=== PATIENT | male | born 1945 | race American Indian/Alaskan Native ===

== ENCOUNTER 2016-11-11 14:58 | Inpatient (IN) | payer MEDICARE ==
[2016-11-11] MEDS ORDERED: methylPREDNISolone SOD SUCC* 125 MG 2 ML VIAL IV ONE (15:31)
[2016-11-11 15:49] LABS: Hematocrit 53 % (42-52); Hemoglobin 17.7 g/dl (14.0-18.0); Mean Corpuscular HGB Conc 34 g/dl (31-36); Mean Corpuscular Hemoglobin 34 pg (27-31); Mean Corpuscular Volume 99 fL (80-94); Mean Platelet Volume 9 um3 (7.4-10.4); Red Cell Distribution Width 14 % (10.5-15); White Blood Count 12.4 10^3/ul (3.5-10.8)
[2016-11-11] MEDS: Albuterol/Ipratropium NEB.SOL* Albuterol 2.5 MG/Ipratropium 0.5 MG 3 ML INH SCH ×3 (15:53→17:15)
[2016-11-11 16:01] LABS: Albumin 4.8 g/dL (3.2-5.2); BUN/Creatinine Ratio 13.3 (8-20); C Reactive Protein 60.25 mg/L (< 5.00); Calcium 9.9 mg/dL (8.6-10.3); EGFR African American 77.2 (>60); Globulin 3.2 g/dL (2-4); Potassium 3.7 mmol/L (3.5-5.0)
[2016-11-11 16:03] LABS: Troponin I 0.01 ng/mL (<0.04)
--- NOTE | 2016-11-11 16:50 | RAD ---
Indication: Shortness of breath, chest pain. 2 views of the chest including dual energy PA views demonstrates hyperinflated lung mo. No evidence of alveolar consolidation noted. No mediastinal shift is noted. IMPRESSION: Chronic pleural changes. No pneumonia is noted.
[2016-11-11 17:04] LABS: Urine Bilirubin Negative (Negative); Urine Glucose Negative (Negative); Urine Nitrite Negative (Negative)
[2016-11-11 17:56] LABS: PCO2 Arterial 47 mmHg (35-45)
--- NOTE | 2016-11-11 18:38 | ED ---
Guerrero Alberto Michael, scribed for Jr Morrison MD on 11/11/16 at 1538 . Shortness of Breath - HPI Summary HPI Summary: 71 y/o male comes to the ED presenting with SOB that worsened one day ago. The pt is not on home oxygen, and he also presents with a productive cough with white and green sputum. The pt c/o CP and dizziness. He denies fever and chills. The PMHx is significant for COPD, HTN, kidney stones, and hypercholesterolemia. The pt smokes half a pack of cigarettes per day. The FHx is significant for HTN. - History of Current Complaint Chief Complaint: EDShortnessOfBreath Time Seen by Provider: 11/11/16 15:15 Hx Obtained From: Patient, Medical Records Onset/Duration: Sudden Onset, Lasting Days, Still Present Timing: Constant Current Severity: Moderate Dyspnea At: Rest Alleviating Factors: Nothing Associated Signs & Symptoms: Negative - fever and chills, Cough (Productive), Chest Pain Unrelated to Cough, Dizzy - Allergy/Home Medications Allergies/Adverse Reactions: Allergies Allergy/AdvReac Type Severity Reaction Status Date / Time Acetaminophen [From Percocet] Allergy Difficulty Verified 11/11/16 15:02 Breathing Oxycodone [From Percocet] Allergy Difficulty Verified 11/11/16 15:02 Breathing Home Medications: Home Medications Albuterol HFA INHALER* [Ventolin HFA Inhaler*] 1 puff INH Q4H PRN 11/11/16 [ History Confirmed 11/11/16] Salmeterol DISKUS (NF) [Serevent Diskus (NF)] 50 mcg IN DAILY 11/11/16 [History Confirmed 11/11/16] Umeclidinium [place] [Incruse Ellipta] 62.5 mcg IN DAILY WITH MEAL 11/11/16 [ History Confirmed 11/11/16] PMH/Surg Hx/FS Hx/Imm Hx Endocrine/Hematology History: Denies: Hx Diabetes Cardiovascular History: Reports: Hx Angina, Hx Hypercholesterolemia, Hx Hypertension, Hx Syncope, Other Cardiovascular Problems/Disorders - ANGINA Respiratory History: Reports: Hx Asthma, Hx Chronic Obstructive Pulmonary Disease (COPD), Hx Sleep Apnea - BiPAP user. History: Reports: Hx Kidney Stones Sensory History: Reports: Hx Contacts or Glasses Opthamlomology History: Reports: Hx Contacts or Glasses - Surgical History Surgery Procedure, Year, and Place: fistula buttocks, appendectomy Infectious Disease History: No Infectious Disease History: Denies: Traveled Outside the [place] in Last 30 Days - Family History Known Family History: Positive: Hypertension Negative: Diabetes - Social History Occupation: Retired Lives: With Family Alcohol Use: Daily Alcohol Amount: 2-3 Substance Use Type: Reports: None Hx Tobacco Use: Yes Smoking Status (MU): Light Every Day Tobacco Smoker Type: Cigarettes Amount Used/How Often: 10 /DAY Have You Smoked in the Last Year: Yes Review of Systems Negative: Fever, Chills Positive: Shortness Of Breath, Cough Neurological: Other - dizziness All Other Systems Reviewed And Are Negative: Yes Physical Exam - Summary Physical Exam Summary: VITAL SIGNS: Reviewed. GENERAL: Patient is an obese male with some distress secondary to the shortness of breath. However, he is able to speak in full sentences. HEAD AND FACE: Normocephalic and atraumatic. EYES: PERRLA, EOMI x 2, No injected conjunctiva. EARS: Hearing grossly intact. Ear canals and tympanic membranes WNL MOUTH: Dry oral mucosa. NECK: Supple, trachea is midline, no adenopathy, no JVD, no carotid bruit. CHEST: Symmetric, No intercostal or abdominal retraction, LUNGS: Diffuse bilateral wheezing and decreased breath sounds.No crackles. CVS: RRR,, S1 and S2 present, no murmurs or gallops appreciated. ABDOMEN: Soft, non-tender. No signs of distention. Positive BS. No rebound, no guarding, and no masses palpated. EXTREMITIES: FROM in all major joints, no edema, no cyanosis or clubbing. NEURO: Alert and oriented x 3. No acute neurological deficits. Speech is normal and follows commands. SKIN: Dry and warm Triage Information Reviewed: Yes Vital Signs On Initial Exam: Initial Vitals Temp Pulse Resp BP Pulse Ox 99.6 F 107 24 170/87 92 11/11/16 15:02 11/11/16 15:02 11/11/16 15:02 11/11/16 15:02 11/11/16 15:02 Vital Signs Reviewed: Yes Diagnostics - Vital Signs Vital Signs Temp Pulse Resp BP Pulse Ox 11/11/16 15:02 99.6 F 107 24 170/87 92 - Laboratory Result Diagrams: 11/11/16 15:14 11/11/16 15:14 Lab Statement: Any lab studies that have been ordered have been reviewed, and results considered in the medical decision making process. - Radiology CXR Xray Interpretation: Positive (See Comments) - Chronic pleural changes. No pneumonia is noted. Radiology Interpretation Completed By: Radiologist - EKG EK EKG Rhythm: Sinus Tachycardia - 102 bpm EKG Interpretation: no st elevation Course/Dx - Course Course Of Treatment: 71 y/o male comes to the ED presenting with SOB that worsened one day ago. The pt is not on home oxygen, and he also presents with a productive cough with white and green sputum. The pt c/o CP and dizziness. He denies fever and chills. The PMHx is significant for COPD, HTN, kidney stones, and hypercholesterolemia. The pt smokes half a pack of cigarettes per day. The FHx is significant for HTN. The blood work within normal limits except shows the WBC 12.4, no edema, chloride 92, creatinine 1.2, glucose 134, and C-reative protein 60.25. The Urine Analysis is negative for UTI. Influenza A and B are negative. The CXR shows chronic pleural changes and no PNA is noted. The patient received Solumedrol and DuoNebs. After treatment patient feels better and without oxygen his saturation is between 85-87, and with 2 L of oxygen the saturation was 90-92. He doesnt have any oxygen at home. ABG was attempted but venous not atrial. I discussed patient care with Dr. Squires at [phone] (Hospitalist ) and Leticia Squires accepts the patient as an admission. - Diagnoses Differential Diagnosis/HQI/PQRI: Positive: Asthma, CHF, COPD Exacerbation, Pneumonia, Pulmonary Edema Provider Diagnoses: COPD with exacerbation, Hypoxia Discharge - Discharge Plan Condition: Stable Disposition: ADMITTED TO [facility]charge Disposition Comment: [place] [facility] [place]. Squires Referrals: Lluvia Stevens, [employer] [Primary Care Provider] - The documentation as recorded by the Guerrero nuñez Michael accurately reflects the service I personally performed and the decisions made by me, Jr Morrison MD.
[2016-11-11] MEDS ORDERED: Albuterol/Ipratropium NEB.SOL* Albuterol 2.5 MG/Ipratropium 0.5 MG 3 ML INH PRN (19:09)
[2016-11-11] MEDS ORDERED: Acetaminophen TAB* 325 MG PO PRN (19:57)
[2016-11-11] MEDS: Heparin VIAL(*) 5000 UNITS/ML VIAL (FIVE THOUSAND) SUBCUT SCH (21:11)
[2016-11-11] MEDS: Atorvastatin* 10 MG TAB PO SCH (21:12)
[2016-11-11] MEDS: DOXYcycline CAP(*) 100 MG PO SCH (21:12)
--- NOTE | 2016-11-11 22:46 | HP ---
HOSPITAL MEDICINE HISTORY AND PHYSICAL: DATE OF ADMISSION: 11/11/16 PRIMARY CARE PROVIDER: Lluvia Stevens NP ATTENDING PHYSICIAN: Dr. Fanny Landrum *(dictation provided by Jacqueline Mendoza NP) . CHIEF COMPLAINT: Shortness of breath. HISTORY OF PRESENT ILLNESS: Mr. Taylor is a 71-year-old male with a past medical history of COPD, hypertension, hyperlipidemia, and obstructive sleep apnea, on CPAP machine, who presents to the hospital today with concern for shortness of breath. Mr. Taylor states that he was essentially in his normal state of health until yesterday when in the evening he developed shortness of breath. He woke in the middle of the night quite short of breath and took an albuterol treatment, but was able to sleep through the night. Throughout the day today, he has been more short of breath and coughing and unable to ambulate except for very short distances without becoming quite dyspneic. Therefore, he presented to the emergency room. He denies any fevers or chills. He does have some intermittent cramps in the left side of his abdomen and up into his chest. He states that these have been unchanged for years. They have not been increasing in frequency or severity. In the emergency room, Mr. Taylor had chest x-ray which showed no acute process. His EKG showed no evidence of ischemia. His labs were essentially unremarkable except for a mild elevation in CRP to 60.25. His flu swab was negative. He is on 2 L nasal cannula originally satting 88% on room air. PAST MEDICAL HISTORY: 1. COPD. 2. Diabetes, stated as borderline. 3. Hypertension. 4. Hyperlipidemia. 5. Obesity. 6. History of appendectomy. 7. History of vasectomy. 8. BPH. 9. Sleep apnea, on BiPAP. 10. History of perianal fistula. 11. History of kidney stones. MEDICATIONS: 1. Tamsulosin daily. 2. Albuterol 1 puff inhaled q.4 hours p.r.n. 3. Fluticasone 220 mcg 1 puff inhaled b.i.d. 4. Salmeterol Diskus 50 mcg inhaled daily. 5. Incruse Ellipta 62.5 mcg daily. 6. Hydrochlorothiazide 25 mg p.o. daily. 7. Simvastatin 10 mg p.o. bedtime. 8. Potassium chloride daily. 9. A second pill for BPH which he is not sure the name of. ALLERGIES: To TYLENOL, OXYCODONE. FAMILY HISTORY: The patient reports his father had colon cancer. Mother in a motor vehicle crash. SOCIAL HISTORY: The patient is a continued [id number]-[id number]-a-day smoker. He drinks 2 Manhattan's per night, but he states he gomez them down. He denies any alcohol or drug use. He states that his brother, Paulo Taylor, would be his healthcare proxy. REVIEW OF SYSTEMS: A 14-point review of systems was completed with Mr. Taylor and all those not mentioned above were negative. PHYSICAL EXAMINATION GENERAL: Mr. Taylor is sitting up in a chair. He is in no acute distress. He is calm and cooperative to my examination. VITAL SIGNS: Temperature 99.6, heart rate 104, respiratory rate 18, O2 saturation 91% on 2 L nasal cannula, blood pressure 146/91. LUNGS: Diminished bilaterally, although there are some very mild expiratory wheezing. There is no accessory muscle use. HEART: S1, S2. No murmur, rub, or gallop, and regular. ABDOMEN: Soft, nontender with bowel sounds positive x4. EXTREMITIES: No cyanosis or edema. NEURO: He is alert and oriented x3. He moves all extremities equally. There is no facial asymmetry or focal weakness. Extraocular movements are intact. SKIN: Intact. DIAGNOSTIC STUDIES/LAB DATA: WBC 12.4, hemoglobin 17.7, hematocrit 53, platelet count 139. Blood gas shows a pH of 7.46, PCO2 47, PO2 34. Sodium 135 , potassium 3.7, chloride 92, serum bicarbonate 36, BUN 16, creatinine 1.20, glucose 134, CRP 60.25. Troponin 0.01. Urine shows no evidence of infection. Flu swab is negative. Chest x-ray shows no acute process. EKG shows sinus rhythm with a heart rate of approximately 100 and no evidence of ischemia. ASSESSMENT AND PLAN: Mr. Taylor is a 71-year-old male with past medical history of chronic obstructive pulmonary disease and obstructive sleep apnea, who presents today to the hospital with 24 hours of worsening shortness of breath and dyspnea on exertion. Plan is for observation in the hospital for the followin. Shortness of breath: I suspect that Mr. Taylor is having chronic obstructive pulmonary disease exacerbation given his underlying history of chronic obstructive pulmonary disease and continued smoking. He has no fevers, no chills, no infiltrate noted on the chest x-ray. He has no risk factors for pulmonary embolism that are new. Plan to treat with prednisone, Duo nebulizers , doxycycline, and oxygen p.r.n. 2. Hypertension: Continue hydrochlorothiazide. 3. Benign prostatic hyperplasia: Continue home medications. 4. Hyperlipidemia: Continue simvastatin. 5. DVT prophylaxis with heparin subcu. 6. Disposition to the medical floor. TIME SPENT: Approximately 60 minutes was spent on the admission of this patient , more than half time spent with him at the bedside reviewing the events leading up to this hospitalization, performing the physical examination, and reviewing my plan of care. JACQUELINE MENDOZA NP CC: Lluvia Stevens NP* [id number]/[facility] #: [id number]
[2016-11-12] MEDS: Heparin VIAL(*) 5000 UNITS/ML VIAL (FIVE THOUSAND) SUBCUT SCH ×3 (06:55→21:28)
[2016-11-12] MEDS: predniSONE TAB* 20 MG PO SCH (10:05)
[2016-11-12] MEDS: Hydrochlorothiazide TAB* 25 MG PO SCH (10:05)
[2016-11-12] MEDS: DOXYcycline CAP(*) 100 MG PO SCH ×2 (10:05→21:30)
[2016-11-12] MEDS: Albuterol/Ipratropium NEB.SOL* Albuterol 2.5 MG/Ipratropium 0.5 MG 3 ML INH SCH ×3 (15:43→23:07)
--- NOTE | 2016-11-12 17:36 | PN ---
Subjective Date of Service: 11/12/16 Interval History: Patient seen and examined at bedside. Mr. Taylor reports feeling "much better" than yesterday. He still reports dyspnea with exertion. He does not wear home O2 at baseline. He states he thinks he is done with smoking after this. Denies fever/chills, CP, abd pain,, n/v. Family History: Unchanged from Admission Social History: Unchanged from Admission Past Medical History: Unchanged from Admission Objective Active Medications: Acetaminophen (Tylenol Tab*) 650 mg PO Q6H PRN PRN Reason: PAIN Albuterol/Ipratropium (Duoneb (Albuterol 2.5 Mg/Ipratropium 0.5 Mg)) 1 neb INH [id number] AWAKE [facility] Last Admin: 11/12/16 15:43 Dose: 1 neb Atorvastatin Calcium (Lipitor*) 5 mg PO BEDTIME [facility] Last Admin: 11/11/16 21:12 Dose: 5 mg Doxycycline Hyclate (Vibramycin Cap(*)) 100 mg PO BID [facility] Last Admin: 11/12/16 10:05 Dose: 100 mg Heparin Sodium (Porcine) (Heparin Vial(*)) 5,000 units SUBCUT Q8HR [facility] Last Admin: 11/12/16 15:20 Dose: 5,000 units Hydrochlorothiazide (Hydrodiuril Tab*) 25 mg PO DAILY [facility] Last Admin: 11/12/16 10:05 Dose: 25 mg Prednisone (Deltasone Tab*) 60 mg PO DAILY [facility] Last Admin: 11/12/16 10:05 Dose: 60 mg Vital Signs 11/12/16 11/12/16 15:20 15:45 Temperature 97.4 F Pulse Rate 86 80 Respiratory 20 15 Rate Blood Pressure 139/73 (mmHg) O2 Sat by Pulse 95 99 Oximetry Oxygen Devices in Use Now: Nasal Cannula Appearance: Male patient, sitting up in bed, in NAD Eyes: PERRLA Ears/Nose/Mouth/Throat: Clear Oropharnyx, Mucous Membranes Moist Neck: NL Appearance and Movements; NL JVP Respiratory: Symmetrical Chest Expansion and Respiratory Effort, - - lungs diminished, expiratory wheezing Cardiovascular: NL Sounds; No Murmurs; No JVD, RRR Abdominal: NL Sounds; No Tenderness; No Distention Extremities: No Edema Lines/Tubes/Other Access: Clean, Dry and Intact Peripheral IV Nutrition: Taking PO's Result Diagrams: 11/11/16 15:14 11/11/16 15:14 Assess/Plan/Problems-Billing Assessment: Mr. Taylor is a 71 yo male with a PMH of COPD, MYRON, DM, HTN, and HLD who presented to the ED on 11/11/16 with concern for shortness of breath. - Patient Problems (1) COPD exacerbation Code(s): J44.1 - CHRONIC OBSTRUCTIVE PULMONARY DISEASE W (ACUTE) EXACERBATION Comment: Appears clinically improved, though still requiring oxygen Obtain O2 sat on RA with ambulation to evaluate home O2 needs Continue prednisone, nebulizers, inhalers I have advised the patient to quit smoking. He appears motivated to stop at this time. He has declined prn NRT at this time. (2) MYRON (obstructive sleep apnea) Code(s): G47.33 - OBSTRUCTIVE SLEEP APNEA (ADULT) (PEDIATRIC) Comment: Continue home CPAP use. (3) HTN (hypertension) Code(s): I10 - ESSENTIAL (PRIMARY) HYPERTENSION Comment: Normotensive. Continue HCTZ. (4) BPH (benign prostatic hyperplasia) Code(s): N40.0 - BENIGN PROSTATIC HYPERPLASIA WITHOUT LOWER URINRY TRACT SYMP Comment: Continue tamsulosin. (5) DVT prophylaxis Code(s): [id number] - Comment: SQ heparin Status and Disposition: OBV to inpatient. Anticipate LOS >2 days.
[2016-11-12] MEDS: Tamsulosin CAP* 0.4 MG PO SCH (18:14)
[2016-11-12] MEDS: Atorvastatin* 10 MG TAB PO SCH (21:31)
[2016-11-13] MEDS: Heparin VIAL(*) 5000 UNITS/ML VIAL (FIVE THOUSAND) SUBCUT SCH ×3 (05:59→23:03)
[2016-11-13] MEDS: Albuterol/Ipratropium NEB.SOL* Albuterol 2.5 MG/Ipratropium 0.5 MG 3 ML INH SCH ×5 (06:16→19:54)
[2016-11-13 07:09] LABS: Hematocrit 45 % (42-52); Hemoglobin 15.4 g/dl (14.0-18.0); Mean Corpuscular HGB Conc 34 g/dl (31-36); Mean Corpuscular Hemoglobin 34 pg (27-31); Mean Corpuscular Volume 100 fL (80-94); Mean Platelet Volume 9 um3 (7.4-10.4); Red Blood Count 4.57 10^6/ul (4.0-5.4); Red Cell Distribution Width 13 % (10.5-15); White Blood Count 12.8 10^3/ul (3.5-10.8)
[2016-11-13 07:23] LABS: BUN/Creatinine Ratio 21.8 (8-20); Calcium 9.4 mg/dL (8.6-10.3); EGFR African American 94.2 (>60); EGFR Non-African American 73.2 (>60); Potassium 3.7 mmol/L (3.5-5.0)
[2016-11-13] MEDS: predniSONE TAB* 20 MG PO SCH (08:56)
[2016-11-13] MEDS: DOXYcycline CAP(*) 100 MG PO SCH ×2 (08:56→22:30)
[2016-11-13] MEDS: Hydrochlorothiazide TAB* 25 MG PO SCH (08:56)
--- NOTE | 2016-11-13 09:28 | PN ---
Subjective Date of Service: 11/13/16 Interval History: Patient seen and examined at bedside. Mr. Taylor observed ambulating from bathroom to bed with notable wheezing, even with O2. He lives at home with his in a 4 bedroom home. Patient is requiring O2 in order to maintain O2 sats. Denies CP, abd pain, n/v, fever/chills. He is complaining of eye irritation and redness and reports some drainage. Family History: Unchanged from Admission Social History: Unchanged from Admission Past Medical History: Unchanged from Admission Objective Active Medications: Acetaminophen (Tylenol Tab*) 650 mg PO Q6H PRN PRN Reason: PAIN Albuterol/Ipratropium (Duoneb (Albuterol 2.5 Mg/Ipratropium 0.5 Mg)) 1 neb INH [id number] AWAKE [facility] Last Admin: 11/13/16 08:14 Dose: 1 neb Atorvastatin Calcium (Lipitor*) 5 mg PO BEDTIME [facility] Last Admin: 11/12/16 21:31 Dose: 5 mg Doxycycline Hyclate (Vibramycin Cap(*)) 100 mg PO BID [facility] Last Admin: 11/13/16 08:56 Dose: 100 mg Heparin Sodium (Porcine) (Heparin Vial(*)) 5,000 units SUBCUT Q8HR [facility] Last Admin: 11/13/16 05:59 Dose: 5,000 units Hydrochlorothiazide (Hydrodiuril Tab*) 25 mg PO DAILY [facility] Last Admin: 11/13/16 08:56 Dose: 25 mg Prednisone (Deltasone Tab*) 60 mg PO DAILY [facility] Last Admin: 11/13/16 08:56 Dose: 60 mg Tamsulosin HCl (Flomax Cap*) 0.4 mg PO QPM [facility] Last Admin: 11/12/16 18:14 Dose: 0.4 mg Vital Signs 11/12/16 11/12/16 11/12/16 13:36 15:20 15:45 Temperature 97.4 F Pulse Rate 86 80 Respiratory 20 15 Rate Blood Pressure 139/73 (mmHg) O2 Sat by Pulse 88 95 99 Oximetry 11/12/16 11/12/16 11/12/16 19:15 19:56 19:59 Temperature Pulse Rate 80 Respiratory 22 15 Rate Blood Pressure (mmHg) O2 Sat by Pulse 95 95 Oximetry 11/12/16 11/12/16 11/13/16 20:00 23:28 08:15 Temperature Pulse Rate 80 80 82 Respiratory 15 16 15 Rate Blood Pressure 126/81 (mmHg) O2 Sat by Pulse 95 95 96 Oximetry Oxygen Devices in Use Now: Nasal Cannula Appearance: Male patient, OOB to chair, in NAD but with audible wheezing Eyes: PERRLA - injected conjunctiva Ears/Nose/Mouth/Throat: Clear Oropharnyx, Mucous Membranes Moist Neck: NL Appearance and Movements; NL JVP Respiratory: Symmetrical Chest Expansion and Respiratory Effort, - - expiratory wheezing in all lung mo Cardiovascular: NL Sounds; No Murmurs; No JVD, RRR Abdominal: NL Sounds; No Tenderness; No Distention Extremities: No Edema Skin: No Rash or Ulcers Neurological: Alert and Oriented x 3 Lines/Tubes/Other Access: Clean, Dry and Intact Peripheral IV Nutrition: Taking PO's Result Diagrams: 11/13/16 06:33 11/13/16 06:33 Assess/Plan/Problems-Billing Assessment: Mr. Taylor is a 71 yo male with a PMH of COPD, MYRON, DM, HTN, and HLD who presented to the ED on 11/11/16 with concern for shortness of breath. - Patient Problems (1) COPD exacerbation Code(s): J44.1 - CHRONIC OBSTRUCTIVE PULMONARY DISEASE W (ACUTE) EXACERBATION Comment: Appears clinically improved, though still requiring oxygen Patient still very dyspneic with exertion, even with oxygen. Continue prednisone, nebulizers, inhalers I have advised the patient to quit smoking. He appears motivated to stop at this time. He has declined prn NRT at this time. (2) MYRON (obstructive sleep apnea) Code(s): G47.33 - OBSTRUCTIVE SLEEP APNEA (ADULT) (PEDIATRIC) Comment: Continue home CPAP use. (3) HTN (hypertension) Code(s): I10 - ESSENTIAL (PRIMARY) HYPERTENSION Comment: Normotensive. Continue HCTZ. (4) BPH (benign prostatic hyperplasia) Code(s): N40.0 - BENIGN PROSTATIC HYPERPLASIA WITHOUT LOWER URINRY TRACT SYMP Comment: Continue tamsulosin. (5) DVT prophylaxis Code(s): [id number] - Comment: SQ heparin Status and Disposition: OBV to inpatient. Anticipate LOS >2 days.
[2016-11-13] MEDS: Polymyx/Trimethoprim OPTH* 10 ML BTL BOTH EYES SCH ×4 (12:37→23:04)
[2016-11-13] MEDS: guaiFENesin ER TAB 600 MG PO SCH ×2 (12:37→23:03)
[2016-11-13] MEDS: Tamsulosin CAP* 0.4 MG PO SCH (18:11)
[2016-11-13] MEDS: Atorvastatin* 10 MG TAB PO SCH (22:31)
[2016-11-14] MEDS: Albuterol/Ipratropium NEB.SOL* Albuterol 2.5 MG/Ipratropium 0.5 MG 3 ML INH SCH ×4 (01:38→19:53)
[2016-11-14] MEDS: Polymyx/Trimethoprim OPTH* 10 ML BTL BOTH EYES SCH ×8 (01:53→21:23)
[2016-11-14] MEDS: Heparin VIAL(*) 5000 UNITS/ML VIAL (FIVE THOUSAND) SUBCUT SCH ×3 (06:36→20:41)
[2016-11-14 08:25] LABS: Hematocrit 51 % (42-52); Hemoglobin 17.1 g/dl (14.0-18.0); Mean Corpuscular HGB Conc 34 g/dl (31-36); Mean Corpuscular Hemoglobin 33 pg (27-31); Mean Corpuscular Volume 98 fL (80-94); Mean Platelet Volume 9 um3 (7.4-10.4); Red Blood Count 5.13 10^6/ul (4.0-5.4); Red Cell Distribution Width 14 % (10.5-15); White Blood Count 8.1 10^3/ul (3.5-10.8)
[2016-11-14] MEDS: Hydrochlorothiazide TAB* 25 MG PO SCH (08:46)
[2016-11-14] MEDS: DOXYcycline CAP(*) 100 MG PO SCH ×2 (08:46→20:33)
[2016-11-14] MEDS: predniSONE TAB* 20 MG PO SCH (08:47)
[2016-11-14] MEDS: guaiFENesin ER TAB 600 MG PO SCH ×2 (08:49→20:40)
--- NOTE | 2016-11-14 10:28 | PN ---
Subjective Date of Service: 11/14/16 Interval History: Patient seen and examined at bedside. He reports n/v/d last night and this morning. He reports having a roommate previously this admission with similar symptoms and thinks he caught a GI bug. Denies abdominal pain. Patient continues to require O2. Denies CP, fever/chills. C. diff PCR negative. Family History: Unchanged from Admission Social History: Unchanged from Admission Past Medical History: Unchanged from Admission Objective Active Medications: Acetaminophen (Tylenol Tab*) 650 mg PO Q6H PRN PRN Reason: PAIN Albuterol/Ipratropium (Duoneb (Albuterol 2.5 Mg/Ipratropium 0.5 Mg)) 1 neb INH [id number] [facility]WAKE [facility] Last Admin: 11/14/16 07:53 Dose: 1 neb Atorvastatin Calcium (Lipitor*) 5 mg PO BEDTIME [facility] Last Admin: 11/13/16 22:31 Dose: 5 mg Doxycycline Hyclate (Vibramycin Cap(*)) 100 mg PO BID [facility] Last Admin: 11/14/16 08:46 Dose: 100 mg Guaifenesin (Mucinex*) 1,200 mg PO BID [facility] Last Admin: 11/14/16 08:49 Dose: 1,200 mg Heparin Sodium (Porcine) (Heparin Vial(*)) 5,000 units SUBCUT Q8HR [facility] Last Admin: 11/14/16 06:36 Dose: 5,000 units Hydrochlorothiazide (Hydrodiuril Tab*) 25 mg PO DAILY [facility] Last Admin: 11/14/16 08:46 Dose: 25 mg Mometasone Furoate/Formoterol Fumar (Dulera 200/5 Mdi*) 2 puff INH BID [facility] Polymyxin/Trimethoprim Sulfate (Polytrim Ophth*) 1 drop BOTH EYES Q3H [facility] Last Admin: 11/14/16 08:45 Dose: 1 drop Prednisone (Deltasone Tab*) 60 mg PO DAILY [facility] Last Admin: 11/14/16 08:47 Dose: 60 mg Tamsulosin HCl (Flomax Cap*) 0.4 mg PO QPM [facility] Last Admin: 11/13/16 18:11 Dose: 0.4 mg Vital Signs 11/13/16 11/13/16 11/13/16 12:00 16:07 20:00 Temperature Pulse Rate 78 78 81 Respiratory 15 15 16 Rate Blood Pressure (mmHg) O2 Sat by Pulse 99 99 96 Oximetry 11/14/16 11/14/16 11/14/16 00:00 00:24 07:55 Temperature Pulse Rate 53 90 Respiratory 16 15 Rate Blood Pressure 109/51 (mmHg) O2 Sat by Pulse 94 94 92 Oximetry 11/14/16 08:36 Temperature 97.4 F Pulse Rate 93 Respiratory 18 Rate Blood Pressure 151/82 (mmHg) O2 Sat by Pulse 93 Oximetry Oxygen Devices in Use Now: Nasal Cannula Appearance: Older male patient, ambulating in room, in NAD Eyes: PERRLA Ears/Nose/Mouth/Throat: Clear Oropharnyx, Mucous Membranes Moist Neck: NL Appearance and Movements; NL JVP Respiratory: Symmetrical Chest Expansion and Respiratory Effort, - - fair aeration throughout all lung mo, with expiratory wheezing throughout Cardiovascular: NL Sounds; No Murmurs; No JVD, RRR Abdominal: NL Sounds; No Tenderness; No Distention Extremities: No Edema Skin: No Rash or Ulcers Lines/Tubes/Other Access: Clean, Dry and Intact Peripheral IV Nutrition: Taking PO's Result Diagrams: 11/14/16 07:46 11/13/16 06:33 Microbiology and Other Data: Microbiology 11/14/16 02:00 Stool Gross Appearance - Final Stool C. difficile DNA Amplification - Final 027 Presumptive NEGATIVE Toxigenic C.diff NEGATIVE Assess/Plan/Problems-Billing Assessment: Mr. Taylor is a 71 yo male with a PMH of COPD, MYRON, DM, HTN, and HLD who presented to the ED on 11/11/16 with concern for shortness of breath. - Patient Problems (1) Nausea, vomiting, and diarrhea Code(s): R11.2 - NAUSEA WITH VOMITING, UNSPECIFIED; R19.7 - DIARRHEA, UNSPECIFIED Comment: Suspect secondary to viral gastroenteritis. Diarrhea lessening and patient tolerating PO intake Continue supportive care with anti-emetics. [place] diet and PO fluids encouraged. (2) COPD exacerbation Code(s): J44.1 - CHRONIC OBSTRUCTIVE PULMONARY DISEASE W (ACUTE) EXACERBATION Comment: Appears clinically improved, though still requiring oxygen Patient still very dyspneic with exertion, even with oxygen. Will likely require O2 on discharge Continue prednisone, nebulizers, inhalers I have advised the patient to quit smoking. He appears motivated to stop at this time. He has declined prn NRT at this time. (3) MYRON (obstructive sleep apnea) Code(s): G47.33 - OBSTRUCTIVE SLEEP APNEA (ADULT) (PEDIATRIC) Comment: Continue home CPAP use. (4) HTN (hypertension) Code(s): I10 - ESSENTIAL (PRIMARY) HYPERTENSION Comment: Normotensive. Continue HCTZ. (5) BPH (benign prostatic hyperplasia) Code(s): N40.0 - BENIGN PROSTATIC HYPERPLASIA WITHOUT LOWER URINRY TRACT SYMP Comment: Continue tamsulosin. (6) DVT prophylaxis Code(s): [id number] - Comment: SQ heparin Status and Disposition: Inpatient admission. Anticipate LOS >2 days. Potential d/c home tomorrow.
[2016-11-14] MEDS: Mometasone/Formoter 200/5 MDI INH SCH ×2 (11:34→19:53)
[2016-11-14] MEDS ORDERED: Loperamide CAP* 2 MG PO ONE (12:51)
[2016-11-14] MEDS: Tamsulosin CAP* 0.4 MG PO SCH (17:46)
[2016-11-14] MEDS: Atorvastatin* 10 MG TAB PO SCH (20:40)
[2016-11-15] MEDS: Albuterol/Ipratropium NEB.SOL* Albuterol 2.5 MG/Ipratropium 0.5 MG 3 ML INH SCH ×3 (01:00→13:29)
[2016-11-15] MEDS: Polymyx/Trimethoprim OPTH* 10 ML BTL BOTH EYES SCH ×5 (02:47→12:42)
[2016-11-15] MEDS: Heparin VIAL(*) 5000 UNITS/ML VIAL (FIVE THOUSAND) SUBCUT SCH ×2 (06:36→12:42)
[2016-11-15 07:56] VITALS: BP 129/73
[2016-11-15] MEDS: Mometasone/Formoter 200/5 MDI INH SCH (08:15)
[2016-11-15] MEDS: Hydrochlorothiazide TAB* 25 MG PO SCH (08:30)
[2016-11-15] MEDS: guaiFENesin ER TAB 600 MG PO SCH (08:30)
[2016-11-15] MEDS: DOXYcycline CAP(*) 100 MG PO SCH (08:30)
[2016-11-15] MEDS ORDERED: predniSONE TAB* 20 MG PO SCH (09:00)
--- NOTE | 2016-11-15 11:16 | PN ---
Subjective Date of Service: 11/15/16 Interval History: Mr. Taylor states that he is feeling much better than on arrival. He was able to ambulate around the entire unit with a final O2 sat of 87%, though he states that he would not normally be able to walk this far without significant WARE. He denies chest pain. He has had no diarrhea, nausea, or vomiting and tolerated breakfast well. Family History: Unchanged from Admission Social History: Unchanged from Admission Past Medical History: Unchanged from Admission Objective Active Medications: Acetaminophen (Tylenol Tab*) 650 mg PO Q6H PRN Albuterol/Ipratropium (Duoneb (Albuterol 2.5 Mg/Ipratropium 0.5 Mg)) 1 neb INH [id number] AWAKE DEBORA Atorvastatin Calcium (Lipitor*) 5 mg PO BEDTIME DEBORA Doxycycline Hyclate (Vibramycin Cap(*)) 100 mg PO BID [place] Guaifenesin (Mucinex*) 1,200 mg PO BID [place] Heparin Sodium (Porcine) (Heparin Vial(*)) 5,000 units SUBCUT Q8HR [place] Hydrochlorothiazide (Hydrodiuril Tab*) 25 mg PO DAILY DE[place] Mometasone Furoate/Formoterol Fumar (Dulera 200/5 Mdi*) 2 puff INH BID [place] Polymyxin/Trimethoprim Sulfate (Polytrim Ophth*) 1 drop BOTH EYES Q3H [place] Prednisone (Deltasone Tab*) 40 mg PO DAILY [place] Tamsulosin HCl (Flomax Cap*) 0.4 mg PO QPM [facility] Vital Signs 11/14/16 11/14/16 11/14/16 13:53 14:11 15:43 Temperature 98.0 F Pulse Rate 86 90 Respiratory 16 16 Rate Blood Pressure 113/87 (mmHg) O2 Sat by Pulse 98 95 Oximetry 11/14/16 11/14/16 11/14/16 16:11 19:53 19:57 Temperature Pulse Rate 95 Respiratory 16 Rate Blood Pressure (mmHg) O2 Sat by Pulse 94 96 Oximetry 11/14/16 11/14/16 11/15/16 20:00 23:56 07:30 Temperature 97.8 F Pulse Rate 82 Respiratory 16 16 20 Rate Blood Pressure 139/82 (mmHg) O2 Sat by Pulse 95 Oximetry 11/15/16 11/15/16 07:55 08:20 Temperature 97.6 F Pulse Rate 16 88 Respiratory 86 16 Rate Blood Pressure 129/73 (mmHg) O2 Sat by Pulse 95 Oximetry Oxygen Devices in Use Now: None Appearance: Male sitting up in bed in NAD Respiratory: Symmetrical Chest Expansion and Respiratory Effort, - - Minimal expiratory wheeze, good aeration, no accessory muscle use. Cardiovascular: NL Sounds; No Murmurs; No JVD, No Edema Abdominal: NL Sounds; No Tenderness; No Distention Extremities: No Edema Skin: No Rash or Ulcers Neurological: Alert and Oriented x 3, NL Muscle Strength and Tone Nutrition: Taking PO's Result Diagrams: 11/14/16 07:46 11/13/16 06:33 Microbiology and Other Data: Microbiology 11/14/16 02:00 Stool Gross Appearance - Final Stool C. difficile DNA Amplification - Final 027 Presumptive NEGATIVE Toxigenic C.diff NEGATIVE Assess/Plan/Problems-Billing Assessment: Mr. Taylor is a 71 yo male with a PMH of COPD, MYRON, DM, HTN, and HLD who presented to the ED on 11/11/16 with concern for shortness of breath. - Patient Problems (1) COPD exacerbation Comment: Much improved though qualifies for home O2. Continue prednisone, nebulizers, inhalers. I have advised the patient to quit smoking. He appears motivated to stop at this time. He has declined prn NRT at this time. (2) Nausea, vomiting, and diarrhea Comment: Resolved. Suspect secondary to viral gastroenteritis or antibiotics. (3) BPH (benign prostatic hyperplasia) Comment: Continue tamsulosin. (4) HTN (hypertension) Comment: Normotensive. Continue HCTZ. (5) MYRON (obstructive sleep apnea) Comment: Continue home CPAP use. (6) DVT prophylaxis Comment: SQ heparin Status and Disposition: Discharge to home.
[2016-11-15] MEDS ORDERED: Albuterol 2.5 MG/3 ML NEB.SOL* (0.083%) INH PRN (13:27)
--- NOTE | 2016-11-16 01:44 | DS ---
[facility] MEDICINE DISCHARGE SUMMARY: DATE OF ADMISSION: 11/11/16 DATE OF DISCHARGE: 11/15/16 PRIMARY CARE PROVIDER: Lluvia Stevens NP ATTENDING PHYSICIAN: Dr. Elliott Brown *(dictation provided by Jacqueline Mendoza NP ) PRIMARY DIAGNOSIS: Chronic obstructive pulmonary disease exacerbation. SECONDARY DIAGNOSES: 1. Hypertension. 2. Benign prostatic hyperplasia. 3. Diabetes, stated as borderline. 4. Obesity. 5. History of appendectomy. 6. History of vasectomy. 7. Sleep apnea, on BiPAP. 8. History of perianal fistula. 9. History of kidney stones. MEDICATIONS AT THE TIME OF DISCHARGE: 1. Doxycycline 100 mg p.o. b.i.d. 2. Prednisone 10 mg via taper. 3. Guaifenesin ER 1200 mg p.o. b.i.d. p.r.n. 4. Oxygen at 2 L with ambulation. 5. Duo nebulizer solution q.4 hours inhaled p.r.n. shortness of breath. 6. Tamsulosin daily. 7. Albuterol 1 puff inhaled q.4 hours p.r.n. 8. Fluticasone 220 mcg 1 puff inhaled b.i.d. 9. Salmeterol Diskus 50 mcg inhaled daily. 10. Incruse Ellipta 62.5 mcg daily. 11. Hydrochlorothiazide 25 mg p.o. daily. 12. Simvastatin 10 mg p.o. at bedtime. 13. Potassium chloride daily. 14. Second pill for BPH which the patient was unsure the name of. HOSPITAL COURSE: Mr. Taylor is a 71-year-old male with a past medical history of COPD, who presented to the hospital on 11/11/16 with concern for shortness of breath. Please see the dictated H and P by myself for complete details. In brief, the patient had had significant shortness of breath at home culminating in severe dyspnea the night prior to admission. The patient was very frightened and anxious by how severe shortness of breath was and therefore came into the emergency room for evaluation. In the emergency room, he was found to have O2 sat of 88% on room air, which improved with 2 L nasal cannula. His chest x-ray showed no acute process. His EKG was normal without evidence of ischemia. He was admitted out of concern for COPD exacerbation. Mr. Taylor was treated initially with Solu-Medrol and then transitioned over to prednisone. He has been receiving Duo nebulizer treatments as needed. He has also been receiving doxycycline 100 mg p.o. twice daily. With this, he has been improving, though slowly. Today, he was able to ambulate around the unit with an O2 saturation that fell to 87% after quite a distance. His O2 sat increased to 92% while at rest. I recommend that he go home on 2 L nasal cannula with activity. The patient states that his dyspnea is much improved and that he feels comfortable with discharge to home. Mr. Taylor has been discharged to home to complete treatment for COPD exacerbation and to follow up with nurse practitioner, Lluvia Stevens. The patient did have an episode of nausea, vomiting, diarrhea two days ago. He had poor oral intake yesterday, but overnight he had no diarrhea, no nausea, no vomiting, has tolerated breakfast well. I questioned whether perhaps this episode was related to doxycycline or perhaps a viral gastroenteritis. Regardless, the patient is feeling well this morning. His vital signs are stable and he is tolerating oral intake. DISPOSITION: Home. DIET: Heart healthy. ACTIVITY: As tolerated. FOLLOWUP PLANS: Please follow up with nurse practitioner, Lluvia Stevens. TIME SPENT: Approximately 60 minutes was spent in the discharge of this patient ; more than half time was spent with patient at the bedside reviewing the events leading up to this hospitalization, performing the physical examination, and reviewing the plan of care. JACQUELINE MENDOZA NP CC: Lluvia Stevens NP* [id number]/[facility] #: [id number] [facility] MEDICAL CENTERBenny
== END 2016-11-15 14:45 | disposition home or self-care (01) | DRG 192 ==
LOC: ED 14:58 → MED 19:16 → UNDOADMIN 19:16 → MED 19:19 → INTOOBSV 19:19 → OBSVTOIN 11-12 12:04 → MED 11-12 15:43
PROVIDERS: ADMIT Internal Medicine; ATTEND Internal Medicine
DX: J44.1 Chronic obstructive pulmonary disease with (acute) exacerbation (principal); I10 Essential (primary) hypertension; N40.0 Benign prostatic hyperplasia without lower urinary tract symptoms; E66.9 Obesity, unspecified; Z87.442 Personal history of urinary calculi; E78.5 Hyperlipidemia, unspecified; G47.33 Obstructive sleep apnea (adult) (pediatric); Z88.5 Allergy status to narcotic agent; Z80.0 Family history of malignant neoplasm of digestive organs; Z82.49 Family history of ischemic heart disease and other diseases of the circulatory system; J45.909 Unspecified asthma, uncomplicated; F17.210 Nicotine dependence, cigarettes, uncomplicated; R19.7 Diarrhea, unspecified; R11.2 Nausea with vomiting, unspecified; Z68.38 Body mass index [BMI] 38.0-38.9, adult; R73.03 Prediabetes
CPT/HCPCS: 36415; 36600; 71020; 80048; 80053; 81003; 82553; 82803; 83605; 83880; 84484; 85025; 86140; 87040; 87493; 87502; 93005; 94640; 94760; 99406; A9270-GY; G0378; J1644; J2930; J7512

== ENCOUNTER 2016-12-31 14:52 | Emergency (ER) | payer MEDICARE ==
[2016-12-31] MEDS ORDERED: methylPREDNISolone SOD SUCC* 125 MG 2 ML VIAL IV ONE (16:03)
[2016-12-31] MEDS ORDERED: Albuterol/Ipratropium NEB.SOL* Albuterol 2.5 MG/Ipratropium 0.5 MG 3 ML INH ONE (16:03)
[2016-12-31] MEDS ORDERED: Meclizine TAB* 12.5 MG PO ONE (16:05)
[2016-12-31] MEDS: NS 0.9% 1000 ML* 2,000 ML IV ONE (16:23)
[2016-12-31 16:35] LABS: Hematocrit 44 % (42-52); Hemoglobin 14.9 g/dl (14.0-18.0); Mean Corpuscular HGB Conc 34 g/dl (31-36); Mean Corpuscular Hemoglobin 33 pg (27-31); Mean Corpuscular Volume 97 fL (80-94); Mean Platelet Volume 8 um3 (7.4-10.4); Red Blood Count 4.54 10^6/ul (4.0-5.4); Red Cell Distribution Width 14 % (10.5-15)
[2016-12-31 16:39] LABS: Urine Bilirubin Negative (Negative); Urine Glucose Negative (Negative); Urine Nitrite Negative (Negative)
--- NOTE | 2016-12-31 16:57 | RAD ---
HISTORY: Shortness of breath, cough, wheezing COMPARISONS: November 11, 2016 VIEWS: 2: Frontal dual-energy and lateral views of the chest. FINDINGS: CARDIOMEDIASTINAL SILHOUETTE: The cardiomediastinal silhouette is normal. CARLOS: The carlos are normal. PLEURA: The costophrenic angles are sharp. No pleural abnormalities are noted. LUNG PARENCHYMA: There is hyperinflation with flattening of the diaphragm and expansion of the AP diameter of the chest. ABDOMEN: The upper abdomen is clear. There is no subphrenic gas. BONES AND SOFT TISSUES: No bone or soft tissue abnormalities are noted. OTHER: None. IMPRESSION: HYPERINFLATION, CONSISTENT WITH COPD. NO ACTIVE CARDIOPULMONARY DISEASE.
[2016-12-31 17:03] LABS: Albumin 4.1 g/dL (3.2-5.2); BUN/Creatinine Ratio 7.7 (8-20); C Reactive Protein 7.58 mg/L (< 5.00); Calcium 9.3 mg/dL (8.6-10.3); EGFR African American 91.1 (>60); EGFR Non-African American 70.8 (>60); Total Bilirubin 0.7 mg/dL (0.2-1.0); Total Protein 7.1 g/dL (6.4-8.9)
[2016-12-31 17:50] VITALS: BP 142/76
--- NOTE | 2016-12-31 20:46 | ED ---
Mar Alberto Auryana, scribed for James Cabrera MD on 12/31/16 at 1612 . Syncope/Near Syncope - HPI Summary HPI Summary: 71 year old male BIBA with near syncope and dizziness starting today while sitting. He also had SOB that started at the same time. He states that he COPD is particularly bad today and is coughing more today - white in color. Patient reports that he has been sick for the last few weeks. Previous for the past few weeks and was prescribed prednisone (1 month) and an ABX. He denies tinnitus and decreased hearing. The dizziness is aggravated by sitting up. Patient states that his O2 saturation at home is 92 but without O2 - 88. Recent diagnosis of benign vertigo by PCP, Katherine Stevens - history of unsteady gait with episodes. No Tx for dizziness RN EMERGENCY ROOM but is prescribed Meclezine. PMHx of COPD- daily nasal flushes , falls, but denies CHF. Patient is a former smoker - quit smoking 6 weeks ago. - History Of Current Complaint Chief Complaint: EDShortnessOfBreath Time Seen by Provider: 12/31/16 15:46 Hx Obtained From: Patient, Family/Dry Box Tender - Onset/Duration: Sudden Onset, Still Present Timing: Constant Context: Witnessed - near syncope- dizziness and SOB Activity At Onset: At Rest Associated Head Trauma: No Associated Signs And Symptoms: Dizzy, Shortness Of Breath Related History: Similar Episode/Dx as - history of dizziness - Allergies/Home Medications Allergies/Adverse Reactions: Allergies Allergy/AdvReac Type Severity Reaction Status Date / Time Oxycodone [From Percocet] Allergy Difficulty Verified 12/31/16 14:54 Breathing PMH/Surg Hx/FS Hx/Imm Hx Endocrine/Hematology History: Denies: Hx Anticoagulant Therapy, Hx Blood Disorders, Hx Blood Transfusions, Hx Bone Marrow Disease, Hx Diabetes, Hx Systemic Lupus Erythematosus, Hx Sickle Cell Disease, Hx Thyroid Disease, Hx Anemia, Hx Unexplained Bleeding, Other Endocrine/Hematological Disorders Cardiovascular History: Reports: Hx Angina, Hx Hypercholesterolemia, Hx Hypertension, Hx Syncope, Other Cardiovascular Problems/Disorders - ANGINA Denies: Hx Aneurysm, Hx Angioplasty, Hx Auto Implanted Cardiovert Defib, Hx Cardiac Arrest, Hx Cardiomegaly, Hx Congenital Heart Disease, Hx Congestive Heart Failure, Hx Coronary Artery Disease, Hx Deep Vein Thrombosis, Hx Embolism , Hx Hypotension, Hx Pacemaker/ICD, Hx Peripheral Vascular Disease, Hx Rheumatic Fever, Hx Valvular Heart Disease Respiratory History: Reports: Hx Asthma, Hx Chronic Obstructive Pulmonary Disease (COPD) Denies: Hx Chronic Bronchitis, Hx Cystic Fibrosis, Hx Lung Cancer, Hx Pleural Effusion, Hx Pneumonia, Hx Pulmonary Edema, Hx Pulmonary Embolism, Hx Seasonal Allergies, Hx Sleep Apnea, Other Respiratory Problems/Disorders GI History: Denies: Hx Cirrhosis, Hx Crohn's Disease, Hx Diverticulosis, Hx Gall Bladder Disease, Hx Gastroesophageal Reflux Disease, Hx Gastrointestinal Bleed, Hx Hiatal Hernia, Hx Irritable Bowel, Hx Jaundice, Hx Obstructive Bowel, Hx Ileostomy, Hx Pyloric Stenosis, Hx Ulcer, Other GI Disorders History: Reports: Hx Kidney Stones Denies: Hx Acute Renal Failure, Hx Benign Prostatic Hyperplasia, Hx Chronic Renal Failure, Hx Dialysis, Hx Kidney Infection, Other Problems/Disorders Musculoskeletal History: Denies: Hx Arthritis, Hx Back Problems, Hx Bursitis, Hx Congenital Bone Abnormalities, Hx Fibromyalgia, Hx Gout, Hx Orthopedic Injury, Hx Osteoporosis, Hx Scoliosis, Hx Tendonitis, Other Musculoskeletal History Sensory History: Denies: Hx Cataracts, Hx Contacts or Glasses, Hx Eye Injury, Hx Eye Prosthesis, Hx Glaucoma, Hx Legally Blind, Hx Macular Degeneration, Hx Vision Problem, Hx Deafness, Hx Hearing Aid, Hx Hearing Problem, Other Sensory Impairments Opthamlomology History: Denies: Hx Cataracts, Hx Contacts or Glasses, Hx Eye Injury, Hx Eye Prosthesis, Hx Glaucoma, Hx Legally Blind, Hx Macular Degeneration, Hx Vision Problem, Other Sensory Impairments Neurological History: Denies: Hx Dementia, Hx Developmental Delay, Hx Headaches, Hx Migraine, Hx Nerve Disease, Hx Seizures, Hx Spinal Cord Injury, Hx Transient Ischemic Attacks (TIA), Other Neuro Impairments/Disorders Psychiatric History: Denies: Hx Anxiety, Hx Attention Deficit Hyperactivity Disorder, Hx Eating Disorder, Hx Depression, Hx Panic Disorder, Hx Post Traumatic Stress Disorder, Hx Inpatient Treatment, Hx Community Mental Health Tx, Hx Schizophrenia, Hx Bipolar Disorder, Hx Suicide Attempt, Hx of Violent Episodes Against Others, Hx Substance Abuse, Other Psychiatric Issues/Disorders - Cancer History Hx Chemotherapy: No Hx Radiation Therapy: No Hx Palliative Cancer Treatment: No - Surgical History Surgery Procedure, Year, and Place: fistula buttocks, appendectomy Hx Anesthesia Reactions: No Infectious Disease History: No Infectious Disease History: Denies: Hx Clostridium Difficile, Hx Hepatitis, Hx Human Immunodeficiency Virus (HIV), Hx of Known/Suspected MRSA, Hx Shingles, Hx Tuberculosis, History Other Infectious Disease, Traveled Outside the [place] in Last 30 Days - Family History Known Family History: Positive: Hypertension Negative: Diabetes - Social History Occupation: Retired Lives: With Family Alcohol Use: Daily Alcohol Amount: 2+ cocktails daily Hx Substance Use: No Substance Use Type: Reports: None Hx Tobacco Use: Yes - former smoker Smoking Status (MU): Former Smoker Type: Cigarettes Amount Used/How Often: 10 /DAY Have You Smoked in the Last Year: Yes Review of Systems Constitutional: Negative Eyes: Negative ENT: Negative Cardiovascular: Negative Positive: Shortness Of Breath Gastrointestinal: Negative Genitourinary: Negative Musculoskeletal: Negative Skin: Negative Neurological: Other - dizziness Psychological: Normal All Other Systems Reviewed And Are Negative: Yes Physical Exam - Summary Physical Exam Summary: The patient is [id number] in no acute distress and in no acute pain. The skin is warm and dry and skin color reflects adequate perfusion. HEENT: The head is normocephalic and atraumatic. The pupils are equal and reactive. The conjunctivae are clear and without drainage. Nares are patent and without drainage. Mouth reveals moist mucous membranes and the throat is without erythema and exudate. The external ears are intact. The ear canals are patent and without drainage. The tympanic membranes are intact. No rhinorrhea. Neck is supple with full range of motion and non-tender. There are no carotid bruits. There is no neck vein distension. Audible upper airway noise. Respiratory: Chest is non-tender. Lungs are clear to auscultation and breath sounds decreased at the bilateral bases. Wheezing present. Cardiovascular: Hear is regular rate and rhythm. There is no murmur or rub auscultated. There is no peripheral edema and pulses are symmetrical and equal. Abdomen: The abdomen is soft and non-tender. There are normal bowel sounds heard in all four quadrants and there is no organomegaly palpated. Musculoskeletal: There is no back pain noted. Extremities are non-tender with full range of motion. There is good capillary refill- 2 sec. There is no peripheral edema or calf tenderness elicited. Neurological: Patient is alert and oriented to person, place and time. The patient has symmetrical motor strength in all four extremities. Cranial nerves are grossly intact. Deep tendon reflexes are symmetrical and equal in all four extremities. Psychiatric: The patient has an appropriate affect and does not exhibit any anxiety or depression. Triage Information Reviewed: Yes Vital Signs On Initial Exam: Initial Vitals Temp Pulse Resp BP Pulse Ox 97.6 F 94 22 157/99 96 12/31/16 14:54 12/31/16 14:54 12/31/16 14:54 12/31/16 14:54 12/31/16 14:54 Vital Signs Reviewed: Yes - Jahaira Coma Scale Coma Scale Total: 15 Diagnostics - Vital Signs Vital Signs Temp Pulse Resp BP Pulse Ox 12/31/16 15:30 90 20 120/75 96 12/31/16 15:07 91 95 12/31/16 15:05 98.2 F 83 24 149/88 96 12/31/16 14:54 97.6 F 94 22 157/99 96 - Laboratory Lab Results: Lab Results 12/31/16 12/31/16 12/31/16 Range/Units 16:20 16:20 16:20 WBC 7.0 (3.5-10.8) 10^3/ul RBC 4.54 (4.0-5.4) 10^6/ul Hgb 14.9 (14.0-18.0) g/dl Hct 44 (42-52) % MCV 97 H (80-94) fL MCH 33 H (27-31) pg MCHC 34 (31-36) g/dl RDW 14 (10.5-15) % Plt Count 168 (150-450) 10^3/ul MPV 8 (7.4-10.4) um3 Neut % (Auto) 70.7 (38-83) % Lymph % (Auto) 20.0 L (25-47) % Vance % (Auto) 8.5 (1-9) % Eos % (Auto) 0.4 (0-6) % Baso % (Auto) 0.4 (0-2) % Absolute Neuts (auto) 5.0 (1.5-7.7) 10^3/ul Absolute Lymphs (auto) 1.4 (1.0-4.8) 10^3/ul Absolute Monos (auto) 0.6 (0-0.8) 10^3/ul Absolute Eos (auto) 0 (0-0.6) 10^3/ul Absolute Basos (auto) 0 (0-0.2) 10^3/ul Absolute Nucleated RBC 0.01 10^3/ul Nucleated RBC % 0.1 INR (Anticoag Therapy) (0.89-1.11) Sodium 134 (133-145) mmol/L Potassium 3.0 L (3.5-5.0) mmol/L Chloride 89 L (101-111) mmol/L Carbon Dioxide 37 H (22-32) mmol/L Anion Gap 8 (2-11) mmol/L BUN 8 (6-24) mg/dL Creatinine 1.04 (0.67-1.17) mg/dL Est GFR ( Amer) 91.1 (>60) Est GFR (Non-Af Amer) 70.8 (>60) BUN/Creatinine Ratio 7.7 L (8-20) Glucose 137 H (70-100) mg/dL Lactic Acid 2.1 H* (0.5-2.0) mmol/L Calcium 9.3 (8.6-10.3) mg/dL Total Bilirubin 0.70 (0.2-1.0) mg/dL AST 70 H (13-39) U/L ALT 84 H (7-52) U/L Alkaline Phosphatase 59 (34-104) U/L Total Creatine Kinase 107 (10-223) U/L Troponin I 0.00 (<0.04) ng/mL C-Reactive Protein 7.58 H (< 5.00) mg/L B-Natriuretic Peptide ( - 100) pg/mL Total Protein 7.1 (6.4-8.9) g/dL Albumin 4.1 (3.2-5.2) g/dL Globulin 3.0 (2-4) g/dL Albumin/Globulin Ratio 1.4 (1-3) Urine Color Urine Appearance Urine pH (5-9) Ur Specific [place] (1.010-1.030) Urine Protein (Negative) Urine Ketones (Negative) Urine Blood (Negative) Urine Nitrate (Negative) Urine Bilirubin (Negative) Urine Urobilinogen (Negative) Ur Leukocyte Esterase (Negative) Urine Glucose (Negative) 12/31/16 12/31/16 12/31/16 Range/Units 16:20 16:20 16:20 WBC (3.5-10.8) 10^3/ul RBC (4.0-5.4) 10^6/ul Hgb (14.0-18.0) g/dl Hct (42-52) % MCV (80-94) fL MCH (27-31) pg MCHC (31-36) g/dl RDW (10.5-15) % Plt Count (150-450) 10^3/ul MPV (7.4-10.4) um3 Neut % (Auto) (38-83) % Lymph % (Auto) (25-47) % Vance % (Auto) (1-9) % Eos % (Auto) (0-6) % Baso % (Auto) (0-2) % Absolute Neuts (auto) (1.5-7.7) 10^3/ul Absolute Lymphs (auto) (1.0-4.8) 10^3/ul Absolute Monos (auto) (0-0.8) 10^3/ul Absolute Eos (auto) (0-0.6) 10^3/ul Absolute Basos (auto) (0-0.2) 10^3/ul Absolute Nucleated RBC 10^3/ul Nucleated RBC % INR (Anticoag Therapy) 1.05 (0.89-1.11) Sodium (133-145) mmol/L Potassium (3.5-5.0) mmol/L Chloride (101-111) mmol/L Carbon Dioxide (22-32) mmol/L Anion Gap (2-11) mmol/L BUN (6-24) mg/dL Creatinine (0.67-1.17) mg/dL Est GFR ( Amer) (>60) Est GFR (Non-Af Amer) (>60) BUN/Creatinine Ratio (8-20) Glucose (70-100) mg/dL Lactic Acid (0.5-2.0) mmol/L Calcium (8.6-10.3) mg/dL Total Bilirubin (0.2-1.0) mg/dL AST (13-39) U/L ALT (7-52) U/L Alkaline Phosphatase (34-104) U/L Total Creatine Kinase (10-223) U/L Troponin I (<0.04) ng/mL C-Reactive Protein (< 5.00) mg/L B-Natriuretic Peptide 46 ( - 100) pg/mL Total Protein (6.4-8.9) g/dL Albumin (3.2-5.2) g/dL Globulin (2-4) g/dL Albumin/Globulin Ratio (1-3) Urine Color Straw Urine Appearance Clear Urine pH 8.0 (5-9) Ur Specific [place] 1.005 L (1.010-1.030) Urine Protein Negative (Negative) Urine Ketones Negative (Negative) Urine Blood Negative (Negative) Urine Nitrate Negative (Negative) Urine Bilirubin Negative (Negative) Urine Urobilinogen Negative (Negative) Ur Leukocyte Esterase Negative (Negative) Urine Glucose Negative (Negative) Result Diagrams: 12/31/16 16:20 12/31/16 16:20 Lab Statement: Any lab studies that have been ordered have been reviewed, and results considered in the medical decision making process. - Radiology CXR Xray Interpretation: No Acute Changes - IMPRESSION: HYPERINFLATION, CONSISTENT WITH COPD. NO ACTIVE CARDIOPULMONARY DISEASE. Radiology Interpretation Completed By: Radiologist - EKG 15:04 EKG Interpretation: non-specific ST changes with poor airway progression- normal axis. Re-Evaluation - Re-Evaluation First Eval Re-Evaluation Time: 17:38 - discussed labs, imaging, and course of action Change: Unchanged Comment: Patient is still not moving much air but wishes to go home. Course/Dx Assessment/Plan: 71 y/o males comes in with worsening SOB and dizziness. Labs show normal WBC, increased lactic, low potassium- patient states he has potassium supplements at home. Given Meclezine in ED. On evaluation- patient reports that his dizziness has improved and he wishes to go home. Discharge home with prednisone Rx. Advised to continue with meclezine and to take a potassium supplement. Dx: COPD exacerbation, dehydration, and hypokalemia. - Diagnoses Differential Diagnosis/HQI/PQRI: Positive: Other - copd, vertigo, dehydration, hypokalemia Provider Diagnoses: COPD exacerbation, Dehydration, Hypokalemia, Vertigo, COPD exacerbation Discharge - Discharge Plan Condition: Stable Disposition: HOME Prescriptions: predniSONE TAB* [Deltasone TAB*] 60 mg PO DAILY #15 tab Patient Education Materials: Hypokalemia (ED), Dehydration (ED), COPD (Chronic Obstructive Pulmonary Disease) (ED), Prednisone (By mouth) Referrals: Lluvia Stevens NP [Primary Care Provider] - 2 Days Additional Instructions: Please continue with Meclezine as prescribed. Please take potassium supplement as directed. The documentation as recorded by the Mar nuñez Auryana accurately reflects the service I personally performed and the decisions made by me, James Cabrera MD.
== END 2016-12-31 18:02 | disposition home or self-care (01) ==
LOC: ED 14:52
DX: J44.1 Chronic obstructive pulmonary disease with (acute) exacerbation (principal); R06.02 Shortness of breath; E86.0 Dehydration; E87.6 Hypokalemia; R42 Dizziness and giddiness
CPT/HCPCS: 36415; 71020; 80053; 81003; 82550; 83605; 83880; 84484; 85025; 85610; 86140; 93005; 94640; 94760; 99283; A9270-GY; J2930

== ENCOUNTER 2017-08-07 10:57 | Day surgery (SDC) | payer MEDICARE ==
[~2017-08-07 10:57] MED LIST: Buffered Lidocaine 0.9% SYRIN* 5 ML/SYR SYRINGE INTRADERM ONE; Famotidine IV* 10 MG/ML 2 ML (20 mg) IV ONE; Metoclopramide IV* 5 MG/ML 2 ML VIAL IV SLOW PU ONE
[2017-08-07] MEDS ORDERED: Buffered Lidocaine 0.9% SYRIN* 5 ML/SYR SYRINGE ONE (11:25)
[2017-08-07] MEDS ORDERED: Famotidine IV* 10 MG/ML 2 ML (20 mg) ONE (11:25)
[2017-08-07] MEDS ORDERED: Metoclopramide IV* 5 MG/ML 2 ML VIAL ONE (11:25)
[2017-08-07] MEDS ORDERED: Lidocaine 2% PF * 5 ML VIAL ONE (11:48)
[2017-08-07] MEDS ORDERED: Propofol* 10 MG/ML 20 ML BTL IV PUSH ONE ×2 (11:52→13:07)
[2017-08-07] MEDS ORDERED: fentaNYL* 50 MCG/ML 2 ML VIAL (100 MCG VIAL) IV PRN (12:32)
[2017-08-07] MEDS ORDERED: Ondansetron INJ* 2 MG/ML VIAL IV PRN (12:32)
[2017-08-07] MEDS ORDERED: Levalbuterol 0.63MG/3ML NEB* UNIT OF USE INH PRN (12:32)
[2017-08-07] MEDS ORDERED: Midazolam* 1 MG/ML 2 ML VIAL (2 MG) ONE (13:06)
[2017-08-07] MEDS ORDERED: Succinylcholine* 20 MG/ML 10 ML VIAL ONE (13:07)
[2017-08-07] MEDS ORDERED: fentaNYL* 50 MCG/ML 2 ML VIAL (100 MCG VIAL) ONE (14:01)
[2017-08-07 16:12] VITALS: BP 125/80
--- NOTE | 2017-08-08 03:34 | PRO ---
CC: Lluvia Stevens NP * DATE OF PROCEDURE: 08/07/17 - [facility] PROCEDURE: Colonoscopy to cecal base. SURGEON: Fara Bingham MD ANESTHESIA: General. HISTORY OF PRESENT ILLNESS: Brandan is a pleasant 71-year-old male who presents today with the personal history of a tubular adenomatous polyp seen on colonoscopy in 2013 and a family history of colon cancer with complaints of intermittent rectal bleeding. He is here for a surveillance colonoscopy. PREOPERATIVE DIAGNOSES: 1. Personal history of tubular adenomatous polyps seen on colonoscopy in 2013. 2. Family history of colon cancer. 3. Intermittent rectal bleeding. POSTOPERATIVE DIAGNOSES: 1. 4 mm sessile cecal polyp with polypectomy. 2. Five 3 to 5 mm sessile ascending colon polyp polypectomy with hot snare and cold forceps polypectomy. 3. 3 mm to 4 mm sessile transverse colon polyps. 4. 4 mm sessile descending colon polyps. 5. Two 2 to 3 mm sessile rectal polyps. 6. Large-mouthed diverticula in the sigmoid and descending colon. 7. Small nonbleeding internal hemorrhoids on retroflexion. 8. Poor colonoscopy preparation. RECOMMENDATION: 1. We will determine timing of repeat colonoscopy based on review of biopsy results. DESCRIPTION OF PROCEDURE: Colonoscopy was explained in detail to the patient. The risks, benefits, complications, alternatives, possibilities of missed lesions were explained and understood. Complications included, but were not limited to reaction to anesthesia, aspiration, increased risk of bleeding and perforation. All questions were answered. The patient demonstrated understanding of the conversation. Informed consent was obtained. Next, the patient was brought to the endoscopy suite, placed in the left lateral recumbent position where blood pressure, cardiac and oxygen monitors were applied. The patient was found to be a fit candidate for general anesthesia due to his multiple comorbidities. After adequate sedation was achieved, digital rectal exam was performed, which revealed normal sphincter tone. No palpable masses were appreciated. Next, a standard adult Olympus colonoscope was inserted through the rectum and maneuvered all the way to the cecal base where the ileocecal valve and the appendiceal orifice were identified and photographed. Next, the colonoscope was withdrawn in the fashion that allowed adequate visualization of bowel. The patient's overall preparation was poor. Aggressive irrigation and suctioning was performed in order to adequately visualize the mucosa. Polyps less than 5 mm may have been missed on this examination. The patient had normal mucosa and vascular pattern. A 4 mm sessile polyp was found in the cecum. This was removed via jumbo cold forceps. Hemostasis was seen. Entry into the ascending colon revealed five 3 to 5 mm sessile ascending colon polyps. Some were removed via jumbo cold forceps and some were removed via hot snare cautery. Hemostasis was seen at each site. Further withdrawal into the transverse colon revealed three 3 mm to 4 mm sessile polyps. These were removed via jumbo cold forceps. Hemostasis was seen. Large-mouthed diverticula were also seen in the descending colon as well as entry into the sigmoid colon. There were also two 2 to 3 mm sessile polyps noted in the rectum. These were also removed via jumbo cold forceps. Hemostasis was seen. On retroflexion in the rectum, there were small nonbleeding hemorrhoids that were visualized. Air was then removed from the patient. Colonoscope was removed from the patient. The patient tolerated the procedure well. There are no immediate complications. 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 Thank you, Lluvia Stevens, for allowing us to participate in the care of your patient. If you should have any further questions or concerns, please do not hesitate to contact us. [id number]/[facility] #: [id number] KORINA
== END 2017-08-07 16:12 | disposition home or self-care (01) ==
LOC: OR 10:57
PROVIDERS: ATTEND Internal Medicine Gastroenterology
DX: Z86.010 Personal history of colon polyps (principal); Z80.0 Family history of malignant neoplasm of digestive organs; K62.5 Hemorrhage of anus and rectum; D12.2 Benign neoplasm of ascending colon; D12.4 Benign neoplasm of descending colon; D12.3 Benign neoplasm of transverse colon; K57.30 Diverticulosis of large intestine without perforation or abscess without bleeding; K64.8 Other hemorrhoids; K63.5 Polyp of colon; J44.9 Chronic obstructive pulmonary disease, unspecified; F17.210 Nicotine dependence, cigarettes, uncomplicated; E11.9 Type 2 diabetes mellitus without complications; I10 Essential (primary) hypertension; G47.33 Obstructive sleep apnea (adult) (pediatric)
CPT/HCPCS: 88305; J0330; J2250; J2704; J2765; J3010

== ENCOUNTER 2017-09-08 14:46 | Inpatient (IN) | payer MEDICARE ==
[2017-09-08] MEDS ORDERED: methylPREDNISolone 125 MG* 2 ML VIAL IV ONE (15:21)
[2017-09-08] MEDS ORDERED: Albuterol/Ipratropium NEB.SOL* Albuterol 2.5 MG/Ipratropium 0.5 MG 3 ML INH ONE (15:21)
--- NOTE | 2017-09-08 15:57 | RAD ---
INDICATION: Shortness of breath. COMPARISON: Comparison is made with prior chest x-ray study from December 31, 2016. TECHNIQUE: A portable view of the chest was obtained. FINDINGS: Heart appears mildly enlarged and unchanged. There is a small infiltrate at the left lung base. No pleural effusion is seen. IMPRESSION: SMALL LEFT BASILAR INFILTRATE.
[2017-09-08 16:00] LABS: Hematocrit 49 % (42-52); Hemoglobin 16.9 g/dl (14.0-18.0); Mean Corpuscular HGB Conc 35 g/dl (31-36); Mean Corpuscular Hemoglobin 34 pg (27-31); Mean Corpuscular Volume 97 fL (80-94); Mean Platelet Volume 8 um3 (7.4-10.4); Platelet Count 145 10^3/ul (150-450); Red Cell Distribution Width 13 % (10.5-15); White Blood Count 14.8 10^3/ul (3.5-10.8)
[2017-09-08 16:06] LABS: INR 1.2 (0.77-1.02)
[2017-09-08 16:16] LABS: EGFR Non-African American 59.3 (>60)
[2017-09-08] MEDS ORDERED: NS 0.9% 1000 ML* 1,000 ML IV ONE ×2 (16:51→18:12)
[2017-09-08] MEDS ORDERED: Levofloxacin 750 MG IVPREMIX(* 750 MG/150 ML BAG IVPB ONE (16:51)
[2017-09-08 17:37] LABS: ABS Basophils 0.2 10^3/ul (0-0.2); ABS Eosinophils 0 10^3/ul (0-0.6); ABS Lymphocytes 0.7 10^3/ul (1.0-4.8); ABS Monocytes 0.7 10^3/ul (0-0.8); ABS Neutrophils 13.3 10^3/ul (1.5-7.7); ABS Nucleated RBC 0.1 10^3/ul; Eosinophil % 0.1 % (0-6); Lymphocyte % 4.6 % (25-47); Nucleated Red Blood Cells % 0.3
[2017-09-08] MEDS ORDERED: Ondansetron INJ* 2 MG/ML VIAL IV PRN (17:54)
[2017-09-08] MEDS ORDERED: Albuterol 2.5 MG/3 ML NEB.SOL* (0.083%) INH PRN (17:54)
[2017-09-08] MEDS ORDERED: Acetaminophen TAB* 325 MG PO PRN (17:54)
[2017-09-08] MEDS ORDERED: Potassium Chlor TAB* 20 MEQ TAB.ER PO ONE (18:06)
[2017-09-08] MEDS ORDERED: cefTRIAXone(*) 1 GM in NS 0.9% 50 ML* 50 ML IVPB SCH (19:30)
[2017-09-08] MEDS: Albuterol/Ipratropium NEB.SOL* Albuterol 2.5 MG/Ipratropium 0.5 MG 3 ML INH SCH ×2 (19:44→23:29)
[2017-09-08] MEDS: Mometasone/Formoter 200/5 MDI INH SCH (19:44)
[2017-09-08] MEDS: predniSONE TAB* 20 MG PO SCH (19:54)
[2017-09-08] MEDS ORDERED: Azithromycin IV(*) 500 MG in D5W 250 ML BAG* 250 ML IVPB SCH (20:00)
[2017-09-08] MEDS: CMC: Simvastatin TAB(NF) 10 MG TAB PO SCH (20:09)
[2017-09-08] MEDS: Azithromycin IV(*) 500 MG in NS 0.9% 250 ML* 250 ML IVPB SCH (22:14)
[2017-09-08] MEDS: Heparin VIAL(*) 5000 UNITS/ML VIAL (FIVE THOUSAND) SUBCUT SCH (22:14)
--- NOTE | 2017-09-08 22:35 | ED ---
Hernán Alberto Julia, scribed for Marcelo Sampson MD on 09/08/17 at 2106 . Shortness of Breath - HPI Summary HPI Summary: This patient is a 72 year old M BIBA to [facility] accompanied by with a chief complaint of SOB since this morning. Patient reports cough, fever, and lower extremity edema and pain beginning a couple days ago. Symptoms aggravated by nothing. Symptoms alleviated by oxygen. Patient has been using oxygen all day, but typically uses it only at night. - History of Current Complaint Chief Complaint: EDRespiratoryDistress Time Seen by Provider: 09/08/17 15:01 Hx Obtained From: Patient Onset/Duration: Lasting Hours Aggrevating Factors: Nothing Alleviating Factors: Oxygen Associated Signs & Symptoms: Cough (Nonproductive), Fever, Edema - lower extremity - Allergy/Home Medications Allergies/Adverse Reactions: Allergies Allergy/AdvReac Type Severity Reaction Status Date / Time Oxycodone [From Percocet] Allergy Difficulty Verified 08/07/17 11:29 Breathing PMH/Surg Hx/FS Hx/Imm Hx Endocrine/Hematology History: Reports: Hx Diabetes - borderline Denies: Hx Anticoagulant Therapy, Hx Blood Disorders, Hx Blood Transfusions, Hx Bone Marrow Disease, Hx Systemic Lupus Erythematosus, Hx Sickle Cell Disease , Hx Thyroid Disease, Hx Anemia, Hx Unexplained Bleeding, Other Endocrine/ Hematological Disorders Cardiovascular History: Reports: Hx Angina, Hx Hypercholesterolemia, Hx Hypertension - on meds, Hx Syncope Denies: Hx Aneurysm, Hx Angioplasty, Hx Auto Implanted Cardiovert Defib, Hx Cardiac Arrest, Hx Cardiomegaly, Hx Congenital Heart Disease, Hx Congestive Heart Failure, Hx Coronary Artery Disease, Hx Deep Vein Thrombosis, Hx Embolism , Hx Hypotension, Hx Pacemaker/ICD, Hx Peripheral Vascular Disease, Hx Rheumatic Fever, Hx Valvular Heart Disease, Other Cardiovascular Problems/ Disorders Respiratory History: Reports: Hx Asthma - copd, Hx Chronic Obstructive Pulmonary Disease (COPD), Hx Sleep Apnea Denies: Hx Chronic Bronchitis, Hx Cystic Fibrosis, Hx Lung Cancer, Hx Pleural Effusion, Hx Pneumonia, Hx Pulmonary Edema, Hx Pulmonary Embolism, Hx Seasonal Allergies Comment Only: Other Respiratory Problems/Disorders - copd, o2 2l at night GI History: Denies: Hx Cirrhosis, Hx Crohn's Disease, Hx Diverticulosis, Hx Gall Bladder Disease, Hx Gastroesophageal Reflux Disease, Hx Gastrointestinal Bleed, Hx Hiatal Hernia, Hx Irritable Bowel, Hx Jaundice, Hx Obstructive Bowel, Hx Ileostomy, Hx Pyloric Stenosis, Hx Ulcer, Other GI Disorders History: Reports: Hx Kidney Stones - x3 Denies: Hx Acute Renal Failure, Hx Benign Prostatic Hyperplasia, Hx Chronic Renal Failure, Hx Dialysis, Hx Kidney Infection, Other Problems/Disorders Musculoskeletal History: Denies: Hx Arthritis, Hx Back Problems, Hx Bursitis, Hx Congenital Bone Abnormalities, Hx Fibromyalgia, Hx Gout, Hx Orthopedic Injury, Hx Osteoporosis, Hx Scoliosis, Hx Tendonitis, Other Musculoskeletal History Sensory History: Reports: Hx Contacts or Glasses - glasses Denies: Hx Cataracts, Hx Eye Injury, Hx Eye Prosthesis, Hx Glaucoma, Hx Legally Blind, Hx Macular Degeneration, Hx Vision Problem, Hx Deafness, Hx Hearing Aid, Hx Hearing Problem, Other Sensory Impairments Opthamlomology History: Reports: Hx Contacts or Glasses - glasses Denies: Hx Cataracts, Hx Eye Injury, Hx Eye Prosthesis, Hx Glaucoma, Hx Legally Blind, Hx Macular Degeneration, Hx Vision Problem, Other Sensory Impairments Neurological History: Reports: Other Neuro Impairments/Disorders - passed out a few times after coughing attack Denies: Hx Dementia, Hx Developmental Delay, Hx Headaches, Hx Migraine, Hx Nerve Disease, Hx Seizures, Hx Spinal Cord Injury, Hx Transient Ischemic Attacks (TIA) Psychiatric History: Denies: Hx Anxiety, Hx Attention Deficit Hyperactivity Disorder, Hx Eating Disorder, Hx Depression, Hx Panic Disorder, Hx Post Traumatic Stress Disorder, Hx Inpatient Treatment, Hx Community Mental Health Tx, Hx Schizophrenia, Hx Bipolar Disorder, Hx Suicide Attempt, Hx of Violent Episodes Against Others, Hx Substance Abuse, Other Psychiatric Issues/Disorders - Cancer History Hx Chemotherapy: No Hx Radiation Therapy: No Hx Palliative Cancer Treatment: No - Surgical History Surgery Procedure, Year, and Place: fistula buttocks,. appendectomy, 1970s. kidney stones x3 Hx Anesthesia Reactions: No Infectious Disease History: No Infectious Disease History: Denies: Hx Clostridium Difficile, Hx Hepatitis, Hx Human Immunodeficiency Virus (HIV), Hx of Known/Suspected MRSA, Hx Shingles, Hx Tuberculosis, History Other Infectious Disease, Traveled Outside the [place] in Last 30 Days - Family History Known Family History: Positive: Hypertension Negative: Diabetes - Social History Alcohol Use: Daily Alcohol Amount: 2+ cocktails daily Hx Substance Use: No Substance Use Type: Reports: None Hx Tobacco Use: Yes - former smoker Smoking Status (MU): Former Smoker Type: Cigarettes Amount Used/How Often: 5 cigs per day for 45 years Have You Smoked in the Last Year: Yes Review of Systems Positive: Fever Positive: Shortness Of Breath, Cough Positive: Edema - lower extremities All Other Systems Reviewed And Are Negative: Yes Physical Exam Vital Signs On Initial Exam: Initial Vitals Temp Pulse Resp BP Pulse Ox 99.0 F 97 26 108/64 90 09/08/17 14:48 09/08/17 14:48 09/08/17 14:48 09/08/17 14:48 09/08/17 14:48 - [place] Coma Scale Coma Scale Total: 15 Diagnostics - Vital Signs Vital Signs Temp Pulse Resp BP Pulse Ox 09/08/17 16:00 103 18 95 09/08/17 15:57 104 20 95 09/08/17 15:31 94 28 114/69 96 09/08/17 15:12 96 91 09/08/17 15:11 102 92 09/08/17 14:48 99.0 F 97 26 108/64 90 - Laboratory Lab Results: Lab Results 09/08/17 09/08/17 09/08/17 Range/Units 15:50 15:50 15:50 WBC 14.8 H (3.5-10.8) 10^3/ul RBC 5.00 (4.0-5.4) 10^6/ul Hgb 16.9 (14.0-18.0) g/dl Hct 49 (42-52) % MCV 97 H (80-94) fL MCH 34 H (27-31) pg MCHC 35 (31-36) g/dl RDW 13 (10.5-15) % Plt Count 145 L (150-450) 10^3/ul MPV 8 (7.4-10.4) um3 Neut % (Auto) Pending Lymph % (Auto) Pending [place] % (Auto) Pending Eos % (Auto) Pending Baso % (Auto) Pending Absolute Neuts (auto) Pending Absolute Lymphs (auto) Pending Absolute Monos (auto) Pending Absolute Eos (auto) Pending Absolute Basos (auto) Pending Absolute Nucleated RBC Pending Nucleated RBC % Pending INR (Anticoag Therapy) (0.77-1.02) Sodium 135 (133-145) mmol/L Potassium 3.4 L (3.5-5.0) mmol/L Chloride 93 L (101-111) mmol/L Carbon Dioxide 33 H (22-32) mmol/L Anion Gap 9 (2-11) mmol/L BUN 19 (6-24) mg/dL Creatinine 1.21 H (0.67-1.17) mg/dL Est GFR ( Amer) 76.2 (>60) Est GFR (Non-Af Amer) 59.3 (>60) BUN/Creatinine Ratio 15.7 (8-20) Glucose 179 H (70-100) mg/dL Lactic Acid (0.5-2.0) mmol/L Calcium 9.5 (8.6-10.3) mg/dL Total Bilirubin 1.00 (0.2-1.0) mg/dL AST 32 (13-39) U/L ALT 63 H (7-52) U/L Alkaline Phosphatase 57 (34-104) U/L Troponin I 0.01 (<0.04) ng/mL C-Reactive Protein 45.84 H (< 5.00) mg/L B-Natriuretic Peptide 71 ( - 100) pg/mL Total Protein 6.9 (6.4-8.9) g/dL Albumin 4.1 (3.2-5.2) g/dL Globulin 2.8 (2-4) g/dL Albumin/Globulin Ratio 1.5 (1-3) 09/08/17 09/08/17 Range/Units 15:50 15:50 WBC (3.5-10.8) 10^3/ul RBC (4.0-5.4) 10^6/ul Hgb (14.0-18.0) g/dl Hct (42-52) % MCV (80-94) fL MCH (27-31) pg MCHC (31-36) g/dl RDW (10.5-15) % Plt Count (150-450) 10^3/ul MPV (7.4-10.4) um3 Neut % (Auto) Lymph % (Auto) [place] % (Auto) Eos % (Auto) Baso % (Auto) Absolute Neuts (auto) Absolute Lymphs (auto) Absolute Monos (auto) Absolute Eos (auto) Absolute Basos (auto) Absolute Nucleated RBC Nucleated RBC % INR (Anticoag Therapy) 1.20 H (0.77-1.02) Sodium (133-145) mmol/L Potassium (3.5-5.0) mmol/L Chloride (101-111) mmol/L Carbon Dioxide (22-32) mmol/L Anion Gap (2-11) mmol/L BUN (6-24) mg/dL Creatinine (0.67-1.17) mg/dL Est GFR ( Amer) (>60) Est GFR (Non-Af Amer) (>60) BUN/Creatinine Ratio (8-20) Glucose (70-100) mg/dL Lactic Acid 1.8 (0.5-2.0) mmol/L Calcium (8.6-10.3) mg/dL Total Bilirubin (0.2-1.0) mg/dL AST (13-39) U/L ALT (7-52) U/L Alkaline Phosphatase (34-104) U/L Troponin I (<0.04) ng/mL C-Reactive Protein (< 5.00) mg/L B-Natriuretic Peptide ( - 100) pg/mL Total Protein (6.4-8.9) g/dL Albumin (3.2-5.2) g/dL Globulin (2-4) g/dL Albumin/Globulin Ratio (1-3) Result Diagrams: 09/08/17 15:50 09/08/17 15:50 Lab Statement: Any lab studies that have been ordered have been reviewed, and results considered in the medical decision making process. - Radiology CXR Radiology Interpretation Completed By: Radiologist - No acute pathology. ED Physician has reviewed this report. Course/Dx - Course Course Of Treatment: Mr. Taylor presented with SOB and a cough. He was found to have a pneumonia and was admitted to the hospitalist service after being given antibiotics and fluids. - Diagnoses Provider Diagnoses: Pneumonia, Respiratory insufficiency - Critical Care Time Critical Care Time: 30-74 min Discharge - Discharge Plan Condition: Stable Disposition: ADMITTED TO [facility] documentation as recorded by the Hernán nuñez Julia accurately reflects the service I personally performed and the decisions made by me, Marcelo Sampson MD.
[2017-09-09] MEDS ORDERED: NS 0.9% IV ONE (02:15)
[2017-09-09] MEDS: NS 0.9% 1000 ML* 1,000 ML IV SCH ×4 (02:22→14:24)
[2017-09-09] MEDS: Albuterol/Ipratropium NEB.SOL* Albuterol 2.5 MG/Ipratropium 0.5 MG 3 ML INH SCH ×5 (03:45→19:37)
[2017-09-09] MEDS: Heparin VIAL(*) 5000 UNITS/ML VIAL (FIVE THOUSAND) SUBCUT SCH ×3 (05:37→20:56)
--- NOTE | 2017-09-09 05:40 | HP ---
CC: Lluvia Stevens NP * HISTORY AND PHYSICAL: DATE OF ADMISSION: 09/08/17. PRIMARY CARE PROVIDER: Lluvia Stevens NP. ATTENDING PHYSICIAN WHILE IN THE HOSPITAL: Stefany Buchanan MD * (report dictated by Jeromy Torrez NP) CHIEF COMPLAINT: 1. Cough. 2. Shortness of breath. HISTORY OF PRESENT ILLNESS: Mr. Taylor is a 72-year-old male patient. He has a history of MYRON, hypertension, hyperlipidemia. In addition to this he also has a history of COPD for which he wears O2 mostly at night. He comes in to the ED today, because he has had progressive worsening shortness of breath. He has a home oximeter, he was noticing that it was low. He increased his O2. He started wearing his oxygen around the clock, which he normally does not do. He became more short of breath at exertion. Typically, he says he has short of breath with exertion all the time. He cannot do much without becoming short of breath. He was having a cough that was productive of green sputum. He was concerned because his breathing is was not getting any better. He came in to our ER today to be further evaluated. He denied having any fevers or chills. He denies having any arthralgias or myalgias. He says his girlfriend has been sick recently. He denied feeling congested. Denies runny nose or sore throat. He just says that his feet has been bothering him recently. He was concerned and came in to the ER, was evaluated and found to have a white count, found to have pneumonia and there was concern for COPD exacerbation, so we were asked to evaluate for admission. PAST MEDICAL HISTORY: Significant for: 1. COPD. 2. He says he is a borderline diabetic. 3. Hypertension. 4. Hyperlipidemia. 5. Obesity. 6. BPH. 7. MYRON. 8. Perianal fistula. 9. He has had a history of nephrolithiasis. PAST SURGICAL HISTORY: 1. He has had an appendectomy. 2. Vasectomy. MEDICATIONS: Home meds according to his list include: 1. Multivitamin 1 tablet daily. 2. Advil PM 1 tablet at bedtime as needed. 3. Hydrochlorothiazide 25 mg daily. 4. Breo 1 puff inhaled in the morning. 5. Ventolin 2 puff inhaled every 4 hours as needed. 6. Incruse Ellipta 62.5 mcg inhaled daily. 7. Flomax 0.4 mg p.o. daily. 8. Zocor 10 mg at bedtime. ALLERGIES TO MEDICATIONS: Includes OXYCODONE. FAMILY HISTORY: Mother had a history of CVA. Father had a history of colon cancer. SOCIAL HISTORY: He still about a half a pack a day smoker. He said he quit 3 days ago. He does drink 2 Manhattans a night. Surrogate decision maker is his son, Sigifredo and girlfriend, Jes. REVIEW OF SYSTEMS: There is no documented fever. He denied having any significant weight change. There was no double vision. He denies having any ear discharge. There was no rhinorrhea. There was no sore throat. No thyroid enlargement. He denied having any chest pain. There is dyspnea on exertion. There is no orthopnea. There is dyspnea at rest. He denies any abdominal pain. There was no nausea. No vomiting. No dysuria. There was no frequency. No seizure. No loss of consciousness. No pruritus and no skin ulcerations. Review of 14-systems completed, all others negative. PHYSICAL EXAMINATION GENERAL: At this time, Mr. Taylor is a 72-year-old male patient. He does not appear to be in any acute distress. He is sitting in the ER stretcher. VITAL SIGNS: Blood pressure 114/69, pulse 104, respirations 20, O2 sat 95%. He is sating around on 95% on 4 L, when he first came in he was 90% on room air , now he is only on 4 L 95%. HEENT: Head: Atraumatic, normocephalic. Eyes: EOMs are intact. Sclerae anicteric and not pale. Throat: Oral mucosa appears to be dry. No oropharyngeal erythema. NECK: Supple. LUNGS: He does have rhonchi noted in the upper lobes. He has had wheezing in the lower lobes. Equal diaphragmatic expansion. HEART: Sounds S1, S2. Regular rate and rhythm. No murmurs, rubs, or gallops. ABDOMEN: Soft, flat, nontender. Bowel sounds are present. EXTREMITIES: Pulses were 2+ throughout. He is able to move all 4 extremities with 5/5 strength. He had no peripheral edema. NEUROLOGICAL: He is awake. He is alert. He is oriented to x3. His tongue is midline. Phonograph Mechanic were equal. He had no gross focal deficits. SKIN: Grossly intact. DIAGNOSTIC STUDIES/LAB DATA: WBC of 14.8, RBC of 5.0, hemoglobin of 15.9, hematocrit of 49, and his platelet count was 145. INR 1.2. Sodium was 135, potassium was 3.4, chloride of 93, bicarb 33, BUN 19, creatinine of 1.21, baseline appears to be right around 1. Glucose 179, lactic 1.8, calcium 9.5, total bili 1.0. AST 32, ALT 62. Alk phos 57. Troponin 0.01. CRP of 45. Albumin of 4.1. He had a chest x-ray obtained today; Radiology read it as small left basilar infiltrate. EKG today, shows a sinus tachycardia, rate of 98 with a right bundle-branch block. No ST elevations or T-wave inversions. He did have a PAC, which was reviewed with the previous EKG, appears to be similar. Old medical records were reviewed. ASSESSMENT AND PLAN: Mr. Taylor is a 72-year-old male patient coming in to the ED today with complaints of cough, shortness of breath and just not feeling well. Upon evaluation today, it appeared he has early signs of sepsis, in addition to this also appears to be he has pneumonia. He will be admitted under inpatient status for: 1. Sepsis secondary to pneumonia with chronic obstructive pulmonary disease exacerbation. The patient does have a white count of 14.8. He was tachycardic and mildly tachypneic when he came in. He has been hydrated here in the ED. X he did receive a liter of fluids by Dr. Sampson. I will continue Rocephin and azithromycin. We will get blood cultures and lactic and we will continue to follow. 2. Pneumonia. Again, we will place him on antibiotics. We will get legionella antigen and strep pneumo antigen. I am going to go ahead and check him for the flu. We will go ahead and continue with the pulmonary toileting, and we will get a sputum culture. 3. Chronic obstructive pulmonary disease exacerbation. I will go ahead and give him DuoNebs every 4 hours, Dulera, and steroids have been ordered and continue with antibiotic therapy. 4. Hypertension. In the setting of acute illness, we will hold his hydrochlorothiazide. 5. Hyperlipidemia. Continue statin therapy. 6. Benign prostatic hyperplasia. Continue meds as prescribed. 7. Obstructive sleep apnea. I did order CPAP. 8. DVT prophylaxis. He will be placed on heparin subcu. 9. Code status: Full code. 10. Fluids, electrolytes, and nutrition. He can have a heart-healthy diet. I order a liter of fluids wide open and we will continue to follow him closely. TIME SPENT: On admission was approximately 60 minutes, greater than half of the time was spent [id number] with the patient obtaining my history and physical, other half of the time was spent going over the plan of care with the patient and implementing the plan of care. I did discuss the plan of care with my attending, Dr. Buchanan, she is in agreement. JEROMY TORREZ NP [id number]/[facility] #: [id number] KORINA
[2017-09-09 05:44] LABS: Hematocrit 45 % (42-52); Hemoglobin 15.5 g/dl (14.0-18.0); Mean Corpuscular HGB Conc 34 g/dl (31-36); Mean Corpuscular Hemoglobin 34 pg (27-31); Mean Corpuscular Volume 98 fL (80-94); Mean Platelet Volume 8 um3 (7.4-10.4); Platelet Count 126 10^3/ul (150-450); Red Cell Distribution Width 13 % (10.5-15); White Blood Count 14.2 10^3/ul (3.5-10.8)
[2017-09-09 05:58] LABS: INR 1.21 (0.77-1.02)
[2017-09-09 05:59] LABS: EGFR Non-African American 72.2 (>60)
[2017-09-09 06:13] LABS: ABS Basophils 0 10^3/ul (0-0.2); ABS Eosinophils 0 10^3/ul (0-0.6); ABS Lymphocytes 0.6 10^3/ul (1.0-4.8); ABS Monocytes 0.2 10^3/ul (0-0.8); ABS Neutrophils 13.3 10^3/ul (1.5-7.7); ABS Nucleated RBC 0 10^3/ul; Eosinophil % 0.3 % (0-6); Lymphocyte % 4.4 % (25-47); Nucleated Red Blood Cells % 0
[2017-09-09] MEDS: Mometasone/Formoter 200/5 MDI INH SCH ×2 (07:15→19:38)
[2017-09-09] MEDS: predniSONE TAB* 20 MG PO SCH (11:10)
--- NOTE | 2017-09-09 11:46 | PN ---
Subjective Date of Service: 09/09/17 Interval History: Pt examined today at the bedside. Pt states that he is feeling better today. Denies cough. States he is SOB with exertion but its improved. Denies chest pain. Denies abdominal pain and denies nausea or vomiting. ROS-denies fever, denies chills, denies chest pain, denies sob, denies nausea, denies vomiting, denies lightheadedness, denies loc, denies abdominal pain, review of 11 systems completed all others negative, Objective Active Medications: Acetaminophen (Tylenol Tab*) 650 mg PO Q4H PRN PRN Reason: FEVER/PAIN Albuterol (Ventolin 2.5 Mg/3 Ml Neb.Tory*) 2.5 mg INH Q2H PRN PRN Reason: SOB/WHEEZING Albuterol/Ipratropium (Duoneb (Albuterol 2.5 Mg/Ipratropium 0.5 Mg)) 1 neb INH [id number] AWAKE [facility] Last Admin: 09/09/17 11:27 Dose: 1 neb Heparin Sodium (Porcine) (Heparin Vial(*)) 5,000 units SUBCUT Q8HR [facility] Last Admin: 09/09/17 05:37 Dose: 5,000 units Sodium Chloride (Ns 0.9% 1000 Ml*) 1,000 mls @ 100 mls/hr IV PER RATE [facility] Last Admin: 09/09/17 00:00 Dose: 100 mls/hr Azithromycin 500 mg/ Sodium (Chloride) 250 mls @ 250 mls/hr IVPB Q24H [facility] Last Admin: 09/08/17 22:14 Dose: 250 mls/hr Ceftriaxone Sodium 1 gm/ (Dextrose) 50 mls @ 200 mls/hr IVPB 1930 [facility] Mometasone Furoate/Formoterol Fumar (Dulera 200/5 Mdi*) 2 puff INH BID [facility] Last Admin: 09/09/17 07:15 Dose: 2 puff Ondansetron HCl (Zofran Inj*) 4 mg IV Q6H PRN PRN Reason: NAUSEA Prednisone (Deltasone Tab*) 60 mg PO DAILY [facility] Last Admin: 09/09/17 11:10 Dose: 60 mg Simvastatin (Zocor(Nf)) 10 mg PO BEDTIME [facility] Last Admin: 09/08/17 20:09 Dose: 10 mg Tamsulosin HCl (Flomax Cap*) 0.4 mg PO QPM [facility] Vital Signs - 8 hr 09/09/17 09/09/17 09/09/17 07:58 08:00 08:52 Temperature 97.5 F Pulse Rate 83 86 Respiratory 18 20 Rate Blood Pressure 118/68 (mmHg) O2 Sat by Pulse 94 Oximetry 09/09/17 11:28 Temperature Pulse Rate 87 Respiratory 18 Rate Blood Pressure (mmHg) O2 Sat by Pulse 93 Oximetry Oxygen Devices in Use Now: Nasal Cannula Appearance: 72 y/o male patient sitting in chair NAD< Eyes: No Scleral Icterus Ears/Nose/Mouth/Throat: NL Teeth, Lips, Gums, Clear Oropharnyx Neck: NL Appearance and Movements; NL JVP Respiratory: Symmetrical Chest Expansion and Respiratory Effort, - - wheezing noted to RUL, diminished in the bases, Cardiovascular: NL Sounds; No Murmurs; No JVD Abdominal: NL Sounds; No Tenderness; No Distention Lymphatic: No Cervical Adenopathy Extremities: No Edema Skin: No Rash or Ulcers Neurological: Alert and Oriented x 3 Lines/Tubes/Other Access: Clean, Dry and Intact Peripheral IV Result Diagrams: 09/09/17 05:35 09/09/17 05:35 Additional Lab and Data: Lab Results 09/08/17 09/08/17 09/08/17 Range/Units 15:50 15:50 15:50 WBC 14.8 H (3.5-10.8) 10^3/ul RBC 5.00 (4.0-5.4) 10^6/ul Hgb 16.9 (14.0-18.0) g/dl Hct 49 (42-52) % MCV 97 H (80-94) fL MCH 34 H (27-31) pg MCHC 35 (31-36) g/dl RDW 13 (10.5-15) % Plt Count 145 L (150-450) 10^3/ul MPV 8 (7.4-10.4) um3 Neut % (Auto) Pending Lymph % (Auto) Pending [place] % (Auto) Pending Eos % (Auto) Pending Baso % (Auto) Pending Absolute Neuts (auto) Pending Absolute Lymphs (auto) Pending Absolute Monos (auto) Pending Absolute Eos (auto) Pending Absolute Basos (auto) Pending Absolute Nucleated RBC Pending Nucleated RBC % Pending INR (Anticoag Therapy) (0.77-1.02) Sodium 135 (133-145) mmol/L Potassium 3.4 L (3.5-5.0) mmol/L Chloride 93 L (101-111) mmol/L Carbon Dioxide 33 H (22-32) mmol/L Anion Gap 9 (2-11) mmol/L BUN 19 (6-24) mg/dL Creatinine 1.21 H (0.67-1.17) mg/dL Est GFR ( Amer) 76.2 (>60) Est GFR (Non-Af Amer) 59.3 (>60) BUN/Creatinine Ratio 15.7 (8-20) Glucose 179 H (70-100) mg/dL Lactic Acid (0.5-2.0) mmol/L Calcium 9.5 (8.6-10.3) mg/dL Total Bilirubin 1.00 (0.2-1.0) mg/dL AST 32 (13-39) U/L ALT 63 H (7-52) U/L Alkaline Phosphatase 57 (34-104) U/L Troponin I 0.01 (<0.04) ng/mL C-Reactive Protein 45.84 H (< 5.00) mg/L B-Natriuretic Peptide 71 ( - 100) pg/mL Total Protein 6.9 (6.4-8.9) g/dL Albumin 4.1 (3.2-5.2) g/dL Globulin 2.8 (2-4) g/dL Albumin/Globulin Ratio 1.5 (1-3) 09/08/17 09/08/17 Range/Units 15:50 15:50 WBC (3.5-10.8) 10^3/ul RBC (4.0-5.4) 10^6/ul Hgb (14.0-18.0) g/dl Hct (42-52) % MCV (80-94) fL MCH (27-31) pg MCHC (31-36) g/dl RDW (10.5-15) % Plt Count (150-450) 10^3/ul MPV (7.4-10.4) um3 Neut % (Auto) Lymph % (Auto) [place] % (Auto) Eos % (Auto) Baso % (Auto) Absolute Neuts (auto) Absolute Lymphs (auto) Absolute Monos (auto) Absolute Eos (auto) Absolute Basos (auto) Absolute Nucleated RBC Nucleated RBC % INR (Anticoag Therapy) 1.20 H (0.77-1.02) Sodium (133-145) mmol/L Potassium (3.5-5.0) mmol/L Chloride (101-111) mmol/L Carbon Dioxide (22-32) mmol/L Anion Gap (2-11) mmol/L BUN (6-24) mg/dL Creatinine (0.67-1.17) mg/dL Est GFR ( Amer) (>60) Est GFR (Non-Af Amer) (>60) BUN/Creatinine Ratio (8-20) Glucose (70-100) mg/dL Lactic Acid 1.8 (0.5-2.0) mmol/L Calcium (8.6-10.3) mg/dL Total Bilirubin (0.2-1.0) mg/dL AST (13-39) U/L ALT (7-52) U/L Alkaline Phosphatase (34-104) U/L Troponin I (<0.04) ng/mL C-Reactive Protein (< 5.00) mg/L B-Natriuretic Peptide ( - 100) pg/mL Total Protein (6.4-8.9) g/dL Albumin (3.2-5.2) g/dL Globulin (2-4) g/dL Albumin/Globulin Ratio (1-3) Microbiology and Other Data: Microbiology 09/09/17 05:58 Legionella Urinary Antigen - Final Urine Negative Legionella Streptococcus pneumoniae Ag Screen - Final Negative S. pneumo Antigen 09/08/17 17:59 Influenza Types A,B Antigen (LISBETH) - Final Nasal Specimen received for Influenza A/B Molecular testing Assess/Plan/Problems-Billing Assessment: 72 y/o [place] [facility] [place] found to have PNA - Patient Problems (1) FEN Current Visit: Yes Status: Acute Priority: High Comment: Heart Healthy Diet (2) Full code status Current Visit: Yes Status: Acute Priority: High (3) Sepsis Current Visit: Yes Status: Acute Priority: High Comment: Resolving lactic 2.6, checking again today, cx pending bp stable, will follow closely, IV abx, (4) PNA (pneumonia) Current Visit: Yes Status: Acute Priority: High Comment: Iv abx, nebs steriods, pulm toilet, (5) COPD exacerbation Current Visit: Yes Status: Acute Priority: High Comment: Improved today, continue nebs, steriods, pulm toilet, (6) DVT prophylaxis Current Visit: Yes Status: Acute Priority: High Comment: SQ heparin (7) BPH (benign prostatic hyperplasia) Current Visit: Yes Status: Chronic Priority: High Comment: Continue tamsulosin. (8) HTN (hypertension) Current Visit: Yes Status: Chronic Priority: High Comment: Normotensive hold hctz in setting of illness (9) MYRON (obstructive sleep apnea) Current Visit: Yes Status: Chronic Priority: High Comment: Continue home CPAP use. Status and Disposition: HOme when stable, expect 24-48 hrs of acute care needed,
[2017-09-09] MEDS ORDERED: NS 0.9% 1000 ML* 1,000 ML IV ONE (12:43)
[2017-09-09] MEDS ORDERED: Tamsulosin CAP* 0.4 MG PO SCH (18:00)
[2017-09-09] MEDS ORDERED: NS 0.9% 1000 ML* 1,000 ML IV SCH (18:07)
[2017-09-09] MEDS ORDERED: cefTRIAXone(*) 1 GM in D5W 50 ML BAG* 50 ML IVPB SCH (19:30)
[2017-09-09] MEDS: Azithromycin IV(*) 500 MG in NS 0.9% 250 ML* 250 ML IVPB SCH (20:56)
[2017-09-09] MEDS: CMC: Simvastatin TAB(NF) 10 MG TAB PO SCH (20:56)
[2017-09-10] MEDS: Albuterol/Ipratropium NEB.SOL* Albuterol 2.5 MG/Ipratropium 0.5 MG 3 ML INH SCH ×3 (01:29→12:44)
[2017-09-10] MEDS: Heparin VIAL(*) 5000 UNITS/ML VIAL (FIVE THOUSAND) SUBCUT SCH (05:39)
[2017-09-10] MEDS: Mometasone/Formoter 200/5 MDI INH SCH (07:56)
[2017-09-10 08:49] VITALS: BP 121/68
[2017-09-10 08:51] LABS: ABS Basophils 0.1 10^3/ul (0-0.2); ABS Eosinophils 0 10^3/ul (0-0.6); ABS Lymphocytes 1.4 10^3/ul (1.0-4.8); ABS Monocytes 0.8 10^3/ul (0-0.8); ABS Neutrophils 10.9 10^3/ul (1.5-7.7); ABS Nucleated RBC 0 10^3/ul; Eosinophil % 0.1 % (0-6); Hematocrit 45 % (42-52); Hemoglobin 14.9 g/dl (14.0-18.0); Lymphocyte % 10.8 % (25-47); Mean Corpuscular HGB Conc 33 g/dl (31-36); Mean Corpuscular Hemoglobin 34 pg (27-31); Mean Corpuscular Volume 101 fL (80-94); Mean Platelet Volume 9 um3 (7.4-10.4); Nucleated Red Blood Cells % 0; Platelet Count 132 10^3/ul (150-450); Red Blood Count 4.43 10^6/ul (4.0-5.4); Red Cell Distribution Width 14 % (10.5-15); White Blood Count 13.1 10^3/ul (3.5-10.8)
[2017-09-10 09:03] LABS: EGFR Non-African American 87.9 (>60)
[2017-09-10] MEDS: predniSONE TAB* 20 MG PO SCH (09:05)
--- NOTE | 2017-09-11 01:04 | DS ---
CC: Lluvia Stevens NP * DISCHARGE SUMMARY: DATE OF ADMISSION: 09/08/17 DATE OF DISCHARGE: 09/10/17 PRIMARY CARE PROVIDER: Dr. Lluvia Stevens. ATTENDING PHYSICIAN WHILE IN THE HOSPITAL: Dr. Jordin Dooley * (report dictated by Jeromy Torrez NP). PRINCIPAL DIAGNOSIS: Includes sepsis secondary to pneumonia, now resolved. SECONDARY DIAGNOSES: Include: 1. Chronic obstructive pulmonary disease exacerbation. 2. Hypertension. 3. Hyperlipidemia. 4. Benign prostatic hypertrophy. 5. Obstructive sleep apnea. DISCHARGE MEDICATIONS: Include new medications: 1. Prednisone taper take as directed. 2. Ceftin 500 mg p.o. b.i.d. for 8 more days. 3. Azithromycin 250 mg for 3 more days. 4. Simvastatin 10 mg at bedtime. 5. Flomax 0.4 mg p.o. q.p.m. 6. Incruse Ellipta 62.5 mcg inhaled daily. 7. Albuterol 2 puffs every 4 hours as needed. 8. Breo 1 puff inhaled daily. 9. Hydrochlorothiazide 25 mg daily. 10. Advil PM 1 tablet at bedtime as needed. 11. Multivitamin 1 tablet daily. HISTORY OF PRESENT ILLNESS AND HOSPITAL COURSE: I will refer you to my H and P dictated on 09/08/17 for further details. In short, Mr. Taylor is a 72-year-old male patient who has a history of COPD. He came into the ED on 09/08/17 because he was having progressive worsening shortness of breath. He had a home oximetry. He was noticing that his saturations were low. He increased his O2, but he was becoming more short of breath, particularly with exertion and even at rest. He says at baseline he typically does not wear oxygen when he is at rest and he is not able to do much. He gets short of breath if he is taking shower at times, but he was concerned because he was getting short of breath at rest. He said his girlfriend had been recently sick. He came into our ER, was evaluated. There was concern in the ER because he was found to have elevated white count and found to have pneumonia and he was wheezing on exam and there was concern for COPD exacerbation. He was admitted. He was started on aggressive steroid inhalation along with nebs every 4 hours and p.o. prednisone antibiotics. His initial white count was 14.8, it has now trended down to 13.1. He has remained afebrile since he has been here. His O2 saturations on room air now are 95% at rest. When he is ambulatory, he does require 2 L and his sats stay at 95% to 98%. He has no longer been tachypneic. His heart rate is unstable. He says he is feeling better. Yesterday, when evaluating him, he was still wheezing significantly, but I evaluated him today. He said he had gotten up, he had walked down to the nurses' station from his room. He had walked and by the time he got back from the walk, he felt short of breath but said that was not far from his baseline at all. He said he is feeling better. He was anxious for discharge today, so at this point, the patient was felt to be stable for discharge. STATUS DURING HOSPITALIZATION: Inpatient. CONDITION AT DISCHARGE: Stable. PHYSICAL EXAM ON DISCHARGE: Vital Signs: Blood pressure 121/68, pulse 78, respirations 18, O2 sat 95%, and a temperature of 97.3. Generally, at this time , Mr. Taylor is a 72-year-old male patient. He is sitting in the hospital bed. He does not appear to be in any acute distress. HEENT: Head, atraumatic. Eyes , sclerae are anicteric, not pale. Neck: Supple. Throat: Oral mucosa appears to be moist. No oropharyngeal erythema. Heart: Sounds S1, S2. Regular rate and rhythm. No murmurs, rubs, or gallops. Lungs: They were diminished in the bases. He had no wheezing or rales or rhonchi. Equal diaphragm expansion. Abdomen: Soft, flat, nontender. Bowel sounds present. Extremities: Pulses 2+ throughout. He is moving all 4 extremities with 5/5 strength. Neurologically, the patient is awake, he is alert, he is oriented x3. No gross focal deficits. His skin is intact. DIAGNOSTIC STUDIES/LAB DATA: Labs on discharge WBC of 13.1, down from 14.8; RBC of 4.43; hemoglobin 14.9; hematocrit of 45; platelet count of 132. His INR was 1.21. Sodium was 136, potassium 4, chloride 102, bicarb 27, BUN 18, creatinine 0.86, his glucose is 138. His calcium was 9.0. Serology was negative for flu. He did have a chest x-ray on admission, which revealed small left basilar infiltrate. He did have an EKG, again on admission, which revealed a right bundle-branch block rate of 98. No ST elevations or T-wave inversions were noted. In review of his previous previous EKGs, it did appear to be similar. Old medical records were reviewed. This is a complex medical case, refer you to the medical chart for full details. ISSUES TO BE ADDRESSED ON FOLLOWUP: 1. Pneumonia and COPD. At this point, continue his antibiotics and steroid course as prescribed. He is to follow with is primary care provider. I have instructed him to return for any fevers, chills, nausea, vomiting, or any worsening symptoms. 2. History of MYRON. Continue his CPAP as prescribed. 3. Hypertension. I am going to restart his hydrochlorothiazide tomorrow. 4. Hyperlipidemia. Continue statin therapy. 5. BPH. Continue with Flomax. Issues to return to the hospital include, but not limited to chest pain, shortness of breath, fever, chills, nausea, vomiting, or any other worsening symptoms. TIME SPENT: Time spent on the discharge was approximately 60 minutes. Greater than half the time was spent [id number] with the patient obtaining my history and physical, other half of the time was spent going over the plan of care with the patient and implementing the plan of care. I did discuss the plan of care with my attending, Dr. Dooley, he is in agreement. JEROYM TORREZ NP [id number]/[facility] #: [id number] KORINA
== END 2017-09-10 16:00 | disposition home or self-care (01) | DRG 871 ==
LOC: ED 14:46 → MEDTELE 17:50
PROVIDERS: ADMIT Internal Medicine; ATTEND Internal Medicine
DX: A41.9 Sepsis, unspecified organism (principal); J18.9 Pneumonia, unspecified organism; J44.0 Chronic obstructive pulmonary disease with (acute) lower respiratory infection; J44.1 Chronic obstructive pulmonary disease with (acute) exacerbation; G47.33 Obstructive sleep apnea (adult) (pediatric); E78.5 Hyperlipidemia, unspecified; I10 Essential (primary) hypertension; E66.9 Obesity, unspecified; R40.2412 Glasgow coma scale score 13-15, at arrival to emergency department; N40.0 Benign prostatic hyperplasia without lower urinary tract symptoms; R73.03 Prediabetes; F17.210 Nicotine dependence, cigarettes, uncomplicated; Z72.89 Other problems related to lifestyle; Z82.49 Family history of ischemic heart disease and other diseases of the circulatory system; Z68.37 Body mass index [BMI] 37.0-37.9, adult; Z87.442 Personal history of urinary calculi; Z98.52 Vasectomy status; Z88.5 Allergy status to narcotic agent; Z80.0 Family history of malignant neoplasm of digestive organs; Z82.3 Family history of stroke
CPT/HCPCS: 36415; 71045; 80048; 80053; 83036; 83605; 83880; 84484; 85025; 85610; 86140; 87040; 87502; 87899; 93005; 94640; 94760; 96374; 99283; A9270-GY; J0456; J0696; J1644; J2930; J7512

== ENCOUNTER 2017-09-27 18:23 | Inpatient (IN) | payer MEDICARE ==
[2017-09-27] MEDS ORDERED: methylPREDNISolone 125 MG* 2 ML VIAL IV ONE (18:42)
[2017-09-27] MEDS ORDERED: Albuterol/Ipratropium NEB.SOL* Albuterol 2.5 MG/Ipratropium 0.5 MG 3 ML INH ONE (18:42)
[2017-09-27 19:17] LABS: ABS Basophils 0.1 10^3/ul (0-0.2); ABS Eosinophils 0 10^3/ul (0-0.6); ABS Lymphocytes 0.9 10^3/ul (1.0-4.8); ABS Monocytes 0.8 10^3/ul (0-0.8); ABS Neutrophils 10.1 10^3/ul (1.5-7.7); ABS Nucleated RBC 0 10^3/ul; Eosinophil % 0.1 % (0-6); Hematocrit 46 % (42-52); Hemoglobin 15.8 g/dl (14.0-18.0); Lymphocyte % 7.2 % (25-47); Mean Corpuscular HGB Conc 35 g/dl (31-36); Mean Corpuscular Hemoglobin 34 pg (27-31); Mean Corpuscular Volume 98 fL (80-94); Mean Platelet Volume 8 um3 (7.4-10.4); Nucleated Red Blood Cells % 0.1; Platelet Count 135 10^3/ul (150-450); Red Blood Count 4.65 10^6/ul (4.0-5.4); Red Cell Distribution Width 14 % (10.5-15); White Blood Count 11.8 10^3/ul (3.5-10.8)
--- NOTE | 2017-09-27 19:26 | RAD ---
Indication: Shortness of breath. Single frontal view of the chest performed at 1853 hours was reviewed. Comparison is made with previous exam dated September 08, 2017. Cardiomegaly is noted. No mediastinal shift is noted. Lung mo appear hyperinflated with chronic interstitial disease. IMPRESSION: COPD WITH CHRONIC INTERSTITIAL DISEASE.
[2017-09-27] MEDS ORDERED: cefTRIAXone(*) 1 GM in NS 0.9% 50 ML* 50 ML IVPB ONE (19:29)
[2017-09-27] MEDS ORDERED: Azithromycin IV(*) 500 MG in NS 0.9% 250 ML* 250 ML IVPB ONE (19:30)
[2017-09-27 19:32] LABS: EGFR Non-African American 68.3 (>60); INR 1.16 (0.77-1.02)
--- NOTE | 2017-09-27 20:09 | ED ---
Paddy Alberto Jennifer, scribed for Atul Bermeo on 09/27/17 at 1847 . Shortness of Breath - HPI Summary HPI Summary: The patient is a 72 year old male who complains of shortness of breath that began two days ago. The patient uses about 2 L of oxygen at home at night time. He does not normally use oxygen during the day but had to today. He has a history of COPD. He additionally complains of a productive cough. The patient denies chest pain, swelling of legs, and fever. He is a current smoker. - History of Current Complaint Chief Complaint: EDShortnessOfBreath Time Seen by Provider: 09/27/17 18:33 Hx Obtained From: Patient Onset/Duration: Lasting Days - 2 days ago, Still Present Timing: Constant Current Severity: Moderate Aggrevating Factors: Other - Walking Alleviating Factors: Nothing Associated Signs & Symptoms: Negative - Chest pain, cough, swelling of legs, fever, Cough (Productive) - Allergy/Home Medications Allergies/Adverse Reactions: Allergies Allergy/AdvReac Type Severity Reaction Status Date / Time Oxycodone [From Percocet] Allergy Difficulty Verified 08/07/17 11:29 Breathing Home Medications: Home Medications Multivitamins/Minerals TAB* [Theragran/minerals TAB*] 1 tab PO DAILY 09/27/17 [ History Confirmed 09/27/17] Umeclidin 62.5 MDI(NF) [Incruse ELLIPTA MDI (NF)] 62.5 mcg INH DAILY 09/27/17 [ History Confirmed 09/27/17] PMH/Surg Hx/FS Hx/Imm Hx Endocrine/Hematology History: Reports: Hx Diabetes - borderline Denies: Hx Anticoagulant Therapy, Hx Blood Disorders, Hx Blood Transfusions, Hx Bone Marrow Disease, Hx Systemic Lupus Erythematosus, Hx Sickle Cell Disease , Hx Thyroid Disease, Hx Anemia, Hx Unexplained Bleeding, Other Endocrine/ Hematological Disorders Cardiovascular History: Reports: Hx Angina, Hx Hypercholesterolemia, Hx Hypertension - on meds, Hx Syncope Denies: Hx Aneurysm, Hx Angioplasty, Hx Auto Implanted Cardiovert Defib, Hx Cardiac Arrest, Hx Cardiomegaly, Hx Congenital Heart Disease, Hx Congestive Heart Failure, Hx Coronary Artery Disease, Hx Deep Vein Thrombosis, Hx Embolism , Hx Hypotension, Hx Pacemaker/ICD, Hx Peripheral Vascular Disease, Hx Rheumatic Fever, Hx Valvular Heart Disease, Other Cardiovascular Problems/ Disorders Respiratory History: Reports: Hx Asthma - copd, Hx Chronic Obstructive Pulmonary Disease (COPD), Hx Sleep Apnea Denies: Hx Chronic Bronchitis, Hx Cystic Fibrosis, Hx Lung Cancer, Hx Pleural Effusion, Hx Pneumonia, Hx Pulmonary Edema, Hx Pulmonary Embolism, Hx Seasonal Allergies Comment Only: Other Respiratory Problems/Disorders - copd, o2 2l at night GI History: Denies: Hx Cirrhosis, Hx Crohn's Disease, Hx Diverticulosis, Hx Gall Bladder Disease, Hx Gastroesophageal Reflux Disease, Hx Gastrointestinal Bleed, Hx Hiatal Hernia, Hx Irritable Bowel, Hx Jaundice, Hx Obstructive Bowel, Hx Ileostomy, Hx Pyloric Stenosis, Hx Ulcer, Other GI Disorders History: Reports: Hx Kidney Stones - x3 Denies: Hx Acute Renal Failure, Hx Benign Prostatic Hyperplasia, Hx Chronic Renal Failure, Hx Dialysis, Hx Kidney Infection, Other Problems/Disorders Musculoskeletal History: Denies: Hx Arthritis, Hx Back Problems, Hx Bursitis, Hx Congenital Bone Abnormalities, Hx Fibromyalgia, Hx Gout, Hx Orthopedic Injury, Hx Osteoporosis, Hx Scoliosis, Hx Tendonitis, Other Musculoskeletal History Sensory History: Reports: Hx Contacts or Glasses - glasses Denies: Hx Cataracts, Hx Eye Injury, Hx Eye Prosthesis, Hx Glaucoma, Hx Legally Blind, Hx Macular Degeneration, Hx Vision Problem, Hx Deafness, Hx Hearing Aid, Hx Hearing Problem, Other Sensory Impairments Opthamlomology History: Reports: Hx Contacts or Glasses - glasses Denies: Hx Cataracts, Hx Eye Injury, Hx Eye Prosthesis, Hx Glaucoma, Hx Legally Blind, Hx Macular Degeneration, Hx Vision Problem, Other Sensory Impairments Neurological History: Reports: Other Neuro Impairments/Disorders - passed out a few times after coughing attack Denies: Hx Dementia, Hx Developmental Delay, Hx Headaches, Hx Migraine, Hx Nerve Disease, Hx Seizures, Hx Spinal Cord Injury, Hx Transient Ischemic Attacks (TIA) Psychiatric History: Denies: Hx Anxiety, Hx Attention Deficit Hyperactivity Disorder, Hx Eating Disorder, Hx Depression, Hx Panic Disorder, Hx Post Traumatic Stress Disorder, Hx Inpatient Treatment, Hx Community Mental Health Tx, Hx Schizophrenia, Hx Bipolar Disorder, Hx Suicide Attempt, Hx of Violent Episodes Against Others, Hx Substance Abuse, Other Psychiatric Issues/Disorders - Cancer History Hx Chemotherapy: No Hx Radiation Therapy: No Hx Palliative Cancer Treatment: No - Surgical History Surgery Procedure, Year, and Place: fistula buttocks,. appendectomy, . kidney stones x3 Hx Anesthesia Reactions: No Infectious Disease History: No Infectious Disease History: Denies: Hx Clostridium Difficile, Hx Hepatitis, Hx Human Immunodeficiency Virus (HIV), Hx of Known/Suspected MRSA, Hx Shingles, Hx Tuberculosis, History Other Infectious Disease, Traveled Outside the [place] in Last 30 Days - Family History Known Family History: Positive: Hypertension Negative: Diabetes - Social History Alcohol Use: Daily Alcohol Amount: 2+ cocktails daily Hx Substance Use: No Substance Use Type: Reports: None Hx Tobacco Use: Yes - former smoker Smoking Status (MU): Former Smoker Type: Cigarettes Amount Used/How Often: 5 cigs per day for 45 years Have You Smoked in the Last Year: Yes Review of Systems Negative: Fever Negative: Chest Pain Positive: Shortness Of Breath, Cough - productive Negative: Edema All Other Systems Reviewed And Are Negative: Yes Physical Exam - Summary Physical Exam Summary: Appearance: Well appearing, no pain distress Skin: warm, dry, reflects adequate perfusion Head/face: normal Eyes: EOMI, NOEMI ENT: normal Neck: supple, non-tender Respiratory: Bilateral wheezing. breath sounds present Cardiovascular: Irregular heartbeat. Tachycardic. pulses symmetrical Abdomen: non-tender, soft Bowel: present Musculoskeletal: normal, strength/ROM intact Neuro: normal, sensory motor intact, A&Ox3 Triage Information Reviewed: Yes Vital Signs On Initial Exam: Initial Vitals Temp Pulse Resp BP Pulse Ox 96.9 F 119 26 148/73 94 09/27/17 18:30 09/27/17 18:30 09/27/17 18:30 09/27/17 18:30 09/27/17 18:30 Vital Signs Reviewed: Yes Diagnostics - Vital Signs Vital Signs Temp Pulse Resp BP Pulse Ox 09/27/17 18:33 89 33 148/73 94 09/27/17 18:31 34 09/27/17 18:30 96.9 F 119 26 148/73 94 - Laboratory Lab Results: Lab Results 09/27/17 09/27/17 09/27/17 Range/Units 19:00 19:00 19:00 WBC 11.8 H (3.5-10.8) 10^3/ul RBC 4.65 (4.0-5.4) 10^6/ul Hgb 15.8 (14.0-18.0) g/dl Hct 46 (42-52) % MCV 98 H (80-94) fL MCH 34 H (27-31) pg MCHC 35 (31-36) g/dl RDW 14 (10.5-15) % Plt Count 135 L (150-450) 10^3/ul MPV 8 (7.4-10.4) um3 Neut % (Auto) 85.1 H (38-83) % Lymph % (Auto) 7.2 L (25-47) % Obion % (Auto) 7.0 (1-9) % Eos % (Auto) 0.1 (0-6) % Baso % (Auto) 0.6 (0-2) % Absolute Neuts (auto) 10.1 H (1.5-7.7) 10^3/ul Absolute Lymphs (auto) 0.9 L (1.0-4.8) 10^3/ul Absolute Monos (auto) 0.8 (0-0.8) 10^3/ul Absolute Eos (auto) 0 (0-0.6) 10^3/ul Absolute Basos (auto) 0.1 (0-0.2) 10^3/ul Absolute Nucleated RBC 0 10^3/ul Nucleated RBC % 0.1 INR (Anticoag Therapy) 1.16 H (0.77-1.02) APTT 30.8 (26.0-36.3) seconds D-Dimer, Quantitative < 200 (Less Than 230) ng/mL Patient Temperature ABG pH (7.35-7.45) ABG pH (Temp Correct) ABG pCO2 (35-45) mmHg ABG pCO2 (Temp Corrct ABG pO2 (80-100) mmHg ABG pO2 (Temp Correct ABG HCO3 (19-31) mmol/L ABG O2 Saturation (95-98) % ABG Base Excess (-2.0-2.0) Respiration Rate O2 Delivery Device Ventilator Type Vent Mode FiO2 Inspiratory Time PEEP Pressure Support Pressure Control EPAP IPAP BiPAP Sodium (133-145) mmol/L Potassium (3.5-5.0) mmol/L Chloride (101-111) mmol/L Carbon Dioxide (22-32) mmol/L Anion Gap (2-11) mmol/L BUN (6-24) mg/dL Creatinine (0.67-1.17) mg/dL Est GFR ( Amer) (>60) Est GFR (Non-Af Amer) (>60) BUN/Creatinine Ratio (8-20) Glucose (70-100) mg/dL Lactic Acid (0.5-2.0) mmol/L Calcium (8.6-10.3) mg/dL Total Bilirubin (0.2-1.0) mg/dL AST (13-39) U/L ALT (7-52) U/L Alkaline Phosphatase (34-104) U/L Troponin I (<0.04) ng/mL B-Natriuretic Peptide 65 ( - 100) pg/mL Total Protein (6.4-8.9) g/dL Albumin (3.2-5.2) g/dL Globulin (2-4) g/dL Albumin/Globulin Ratio (1-3) 09/27/17 09/27/17 09/27/17 Range/Units 19:00 19:00 19:15 WBC (3.5-10.8) 10^3/ul RBC (4.0-5.4) 10^6/ul Hgb (14.0-18.0) g/dl Hct (42-52) % MCV (80-94) fL MCH (27-31) pg MCHC (31-36) g/dl RDW (10.5-15) % Plt Count (150-450) 10^3/ul MPV (7.4-10.4) um3 Neut % (Auto) (38-83) % Lymph % (Auto) (25-47) % Obion % (Auto) (1-9) % Eos % (Auto) (0-6) % Baso % (Auto) (0-2) % Absolute Neuts (auto) (1.5-7.7) 10^3/ul Absolute Lymphs (auto) (1.0-4.8) 10^3/ul Absolute Monos (auto) (0-0.8) 10^3/ul Absolute Eos (auto) (0-0.6) 10^3/ul Absolute Basos (auto) (0-0.2) 10^3/ul Absolute Nucleated RBC 10^3/ul Nucleated RBC % INR (Anticoag Therapy) (0.77-1.02) APTT (26.0-36.3) seconds D-Dimer, Quantitative (Less Than 230) ng/mL Patient Temperature Not Reportable ABG pH 7.49 H (7.35-7.45) ABG pH (Temp Correct) Not Reportable ABG pCO2 39 (35-45) mmHg ABG pCO2 (Temp Corrct Not Reportable ABG pO2 165 H (80-100) mmHg ABG pO2 (Temp Correct Not Reportable ABG HCO3 29.4 (19-31) mmol/L ABG O2 Saturation 99.1 H (95-98) % ABG Base Excess 5.9 H (-2.0-2.0) Respiration Rate Not Reportable O2 Delivery Device 3.5lpm nc Ventilator Type Not Reportable Vent Mode Not Reportable FiO2 Not Reportable Inspiratory Time Not Reportable PEEP Not Reportable Pressure Support Not Reportable Pressure Control Not Reportable EPAP Not Reportable IPAP Not Reportable BiPAP Not Reportable Sodium 131 L (133-145) mmol/L Potassium 3.4 L (3.5-5.0) mmol/L Chloride 91 L (101-111) mmol/L Carbon Dioxide 30 (22-32) mmol/L Anion Gap 10 (2-11) mmol/L BUN 18 (6-24) mg/dL Creatinine 1.07 (0.67-1.17) mg/dL Est GFR ( Amer) 87.9 (>60) Est GFR (Non-Af Amer) 68.3 (>60) BUN/Creatinine Ratio 16.8 (8-20) Glucose 154 H (70-100) mg/dL Lactic Acid 1.5 (0.5-2.0) mmol/L Calcium 9.1 (8.6-10.3) mg/dL Total Bilirubin 1.10 H (0.2-1.0) mg/dL AST 19 (13-39) U/L ALT 29 (7-52) U/L Alkaline Phosphatase 75 (34-104) U/L Troponin I 0.01 (<0.04) ng/mL B-Natriuretic Peptide ( - 100) pg/mL Total Protein 6.9 (6.4-8.9) g/dL Albumin 4.0 (3.2-5.2) g/dL Globulin 2.9 (2-4) g/dL Albumin/Globulin Ratio 1.4 (1-3) Result Diagrams: 09/27/17 19:00 09/27/17 19:00 Lab Statement: Any lab studies that have been ordered have been reviewed, and results considered in the medical decision making process. - Radiology CXR Xray Interpretation: Positive (See Comments) - COPD WITH CHRONIC INTERSTITIAL DISEASE. Dr. Bermeo has reviewed this report. Radiology Interpretation Completed By: Radiologist - EKG 18:31 Cardiac Rate: Tachycardia EKG Rhythm: Atrial Fibrillation - at 110 BPM EKG Interpretation: A-Fib with RVR Course/Dx - Course Assessment/Plan: The patient is a 72 year old male who complains of shortness of breath that began two days ago. He has a history of COPD. In the ED, the patient was given Solumedrol, Duoneb, Rocephin, and Azithromycin. Bloodwork and urinalysis were obtained. CXR indicated COPD with chronic interstitial disease. EKG indicated Afib with RVR. Dr. Dooley, hospitalist, admitted the patient to [facility] [place]. - Diagnoses Differential Diagnosis/HQI/PQRI: Positive: Asthma, Bronchitis, CHF, COPD Exacerbation, [place], Pneumonia, Pneumothorax, Pulmonary Edema Provider Diagnoses: COPD exacerbation, Pneumonia - Physician Notifications Discussed Care of Patient With: Jordin Dooley Time Discussed With Above Provider: 20:00 Instructed by Provider To: Admit As Inpatient - Critical Care Time Critical Care Time: 30-74 min Discharge - Discharge Plan Condition: Good Disposition: ADMITTED TO [facility] Referrals: Lluvia Stevens, SOIL TECHNOLOGIST [Primary Care Provider] - The documentation as recorded by the Paddy nuñez Jennifer accurately reflects the service I personally performed and the decisions made by Elvie matias Emmanuel.
[2017-09-27] MEDS ORDERED: Albuterol/Ipratropium NEB.SOL* Albuterol 2.5 MG/Ipratropium 0.5 MG 3 ML INH PRN (20:42)
[2017-09-27] MEDS ORDERED: Ondansetron INJ* 2 MG/ML VIAL IV PRN (20:47)
[2017-09-27] MEDS ORDERED: Acetaminophen TAB* 325 MG PO PRN (20:47)
[2017-09-27 23:08] LABS: Urine Appearance Clear; Urine Blood Negative (Negative); Urine Color Amber; Urine Ketones 1+ (Negative); Urine Protein 1+(30 mg/dL) (Negative); Urine Specific Gravity 1.025 (1.010-1.030); Urine Urobilinogen Positive (Negative)
[2017-09-27] MEDS: Atorvastatin* 10 MG TAB PO SCH (23:18)
[2017-09-27] MEDS: Enoxaparin(*) 40 MG/0.4 ML SYR SUBCUT SCH (23:18)
--- NOTE | 2017-09-27 23:28 | HP ---
CC: Lluvia Stevens NP * ADMISSION HISTORY AND PHYSICAL: DATE OF ADMISSION: 09/27/17 PRIMARY CARE PROVIDER: Lluvia Stevens NP HEALTHCARE PROXY: His son, Sigifredo. CODE STATUS: Full. SOURCE OF INFORMATION: History obtained from interview with the patient and review of past medical records. RELIABILITY: Good. CHIEF COMPLAINT: Shortness of breath. HISTORY OF PRESENT ILLNESS: This is a 72-year-old man active smoker one-half pack per day with recent admissions from 09/08/17 to 09/10/17 with a COPD exacerbation as well as pneumonia. Discharge to complete a total of 10 day course of antibiotics, as well as a slow steroid taper, which completed 1 week ago today, improved prior to his discharge from the hospital and reported that he had been feeling well until approximately Saturday, which is 4 days prior to presentation and he started experience decreased appetite as well as increased cough, increased phlegm production, as well as change in color to green and yellow associated with a fatigue where he started falling asleep around 4 p.m. every day. He usually uses oxygen at night at 2 L and started using during the day today. He had no fevers or chills or night sweats and no sick contacts. He started taking Mucinex without relief for rhinorrhea as well as sinus pressure. He denied chest pain or discomfort except for 1 episode that felt like "gas" after eating gutierrez. He noted an increased shortness of breath since Saturday associated with palpitations with increased shortness of breath when he felt nervous. He measures oxygen at home with a portable O2 pulse oximeter and noted to be 89% on 3 L during the day today prompted him to present to the emergency room. In the emergency room, he again found hypoxic respiratory failure, requiring 3 L oxygen to maintain an O2 sat greater than 90% with increased shortness of breath for which the hospitalists were consulted for admission. When seen by this author, the patient was talking in full sentences, did not feel at his baseline, still had shortness of breath, otherwise no complaints. PAST MEDICAL HISTORY: Includes type 2 diabetes, hemoglobin A1c 6.6 on last admission, COPD, hypertension, hyperlipidemia, obesity, BPH, MYRON uses CPAP at home, nephrolithiasis, perianal fissure. PAST SURGICAL HISTORY: History of appendectomy and history of vasectomy. HOME MEDICATIONS: Include: 1. Simvastatin 10 mg at bedtime. 2. Flomax 0.4 mg daily. 3. Incruse Ellipta 62.5 mcg inhaled daily. 4. Albuterol 2 puffs every 4 hours as needed. 5. Breo 1 puff inhaled daily. 6. Hydrochlorothiazide 25 mg daily. 7. Advil PM 1 tablet at bedtime as needed. 8. Multivitamin 1 tab daily as needed. ALLERGIES: OXYCODONE. FAMILY HISTORY: Negative for COPD or lung cancer. His mother had CVA and his father had colon cancer. SOCIAL HISTORY: Smoked for 50 years predominantly 1-pack per day, approximately half-a-pack per day for the last several years. Drinks 2 to 3 manhattans per day. 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 REVIEW OF SYSTEMS: As per HPI including increased cough, phlegm production, changes in a color of his phlegm, increased fatigue, decreased appetite, rhinorrhea, sinus pressure, increased shortness of breath, and new need for oxygen. Otherwise, all other systems reviewed and negative. PHYSICAL EXAMINATION GENERAL: Sitting up in bed, interactive, pleasant, in no apparent distress, talks in full sentences. VITAL SIGNS: When seen by this author, blood pressure 128/69, heart rate is 120 , respiratory rate is 22, 91% on 3 L oxygen, T-max in the emergency room is 96.9. HEENT: His oropharynx is clear. He has moist mucous membranes. His sclerae are anicteric. NECK: He has non-elevated JVD. No supraclavicular or cervical lymphadenopathy. LUNGS: He has decreased breath sounds throughout without wheeze or rales. Prolonged expiratory phase. HEART: He has a tachycardic heart rate with no murmurs, rubs, or gallops. ABDOMEN: Soft, nontender, and nondistended. EXTREMITIES: Warm and well perfused without clubbing, cyanosis, or edema. He is alert and oriented x3. He has no apparent anxiety, agitation, or depression. Cranial nerves II through XII are intact. LABORATORY DATA: Reviewed. White blood cell count 11.8, neutrophils 85%, hemoglobin 15.8, platelets 135. Blood gas, pH 7.49, pCO2 39, pO2 165. Sodium 131, potassium 3.4, chloride 91, BUN 18, creatinine 1.07, glucose 154, lactic acid 1.5, BNP is 65. DIAGNOSTIC DATA: Reviewed. Chest x-ray, impression: COPD with chronic interstitial lung disease. EKG, first EKG, poor baseline. Computer interpreted as atrial fibrillation. Repeated this EKG, sinus tachycardia, first degree AV block. Normal left posterior fascicular block with right bundle branch block. No ST or T-wave changes, low voltage in limb leads. ASSESSMENT AND PLAN: This is a 72-year-old man, advanced chronic obstructive pulmonary disease, returning less than 1-month after his last discharge for chronic obstructive pulmonary disease exacerbation associated with pneumonia. 1. Shortness of breath. No evidence of pneumonia on this repeat chest x-ray. Absence of fevers and chills. Argue against recurrent pneumonia. While he does have an elevated white blood cell count, I will not give antibiotics at this time. Repeat labs in the morning. If white blood cell count remains elevated, would recommend a CT of his chest better elucidate. I have adding on a procalcitonin to ED labs to help better differentiate infectious bacterial versus viral etiologies. Suspect acute chronic obstructive pulmonary disease exacerbation is primary etiology of shortness of breath. He received 125 mg methylprednisolone in the emergency room. We will continue tomorrow 40 twice daily. 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 I discussed this with the patient and his girlfriend on admission. Increase Ellipta and Breo will hospitalize as well as p.r.n. ipratropium and albuterol. 2. Tachycardia, suspect in the setting of dehydration given increasing cough, oxygen use at home. Decreased appetite, increased fatigue. Give 2 L at 200 cc per hour now. Does not appear to be in atrial fibrillation on repeat EKG. Nebulizers likely also contributing to tachycardia. 3. Obstructive sleep apnea. Continue home CPAP. 4. Hypertension. Continue hydrochlorothiazide. 5. Benign prostatic hyperplasia. Continue finasteride. 6. Diabetes type 2. Hemoglobin A1c is 6.6 on last admission. Starting metformin 500 mg now. I discussed side effects of medication with the patient. He is in agreement with initiation of this medication. 7. DVT prophylaxis. Enoxaparin. [id number]/[facility] #: [id number] [facility]
[2017-09-28] MEDS: NS 0.9% 1000 ML* 1,000 ML IV SCH ×2 (04:01→04:02)
[2017-09-28 06:15] LABS: ABS Basophils 0 10^3/ul (0-0.2); ABS Eosinophils 0 10^3/ul (0-0.6); ABS Lymphocytes 0.4 10^3/ul (1.0-4.8); ABS Monocytes 0.2 10^3/ul (0-0.8); ABS Neutrophils 6.4 10^3/ul (1.5-7.7); ABS Nucleated RBC 0 10^3/ul; Eosinophil % 0 % (0-6); Hematocrit 41 % (42-52); Hemoglobin 14.1 g/dl (14.0-18.0); Lymphocyte % 5.9 % (25-47); Mean Corpuscular HGB Conc 35 g/dl (31-36); Mean Corpuscular Hemoglobin 34 pg (27-31); Mean Corpuscular Volume 99 fL (80-94); Mean Platelet Volume 8 um3 (7.4-10.4); Nucleated Red Blood Cells % 0.1; Platelet Count 106 10^3/ul (150-450); Red Blood Count 4.14 10^6/ul (4.0-5.4); Red Cell Distribution Width 14 % (10.5-15)
[2017-09-28 06:36] LABS: EGFR Non-African American 87.9 (>60)
[2017-09-28] MEDS: methylPREDNISolone SOD 40 MG* 1 ML VIAL IV SCH ×2 (07:58→21:23)
[2017-09-28] MEDS: metFORMIN* 500 MG TAB PO SCH (07:58)
[2017-09-28] MEDS: Multivitamins/Minerals TAB PO SCH (07:58)
[2017-09-28] MEDS: Hydrochlorothiazide TAB* 25 MG PO SCH (07:58)
[2017-09-28] MEDS ORDERED: Fluticasone/Vilanterol MDI(NF) 100/25 MDI INH SCH (09:00)
[2017-09-28] MEDS ORDERED: Umeclidin 62.5 MDI(NF) 1 INH MDI INH SCH (09:00)
[2017-09-28] MEDS ORDERED: Potassium Chlor TAB* 20 MEQ TAB.ER PO ONE (10:41)
[2017-09-28] MEDS ORDERED: Magnesium Sulfate IV* 3 GM in NS 0.9% 100 ML* 100 ML IVPB ONE (11:25)
--- NOTE | 2017-09-28 11:34 | PN ---
Subjective Date of Service: 09/28/17 Interval History: Pt feeling improved. Had chills last night. Onto RA (taken off cpap for breakfast, Sating between 87 and 93%). Objective Active Medications: Acetaminophen (Tylenol Tab*) 650 mg PO Q4H PRN PRN Reason: FEVER/PAIN Albuterol/Ipratropium (Duoneb (Albuterol 2.5 Mg/Ipratropium 0.5 Mg)) 1 neb INH Q4H PRN PRN Reason: SOB/WHEEZING Atorvastatin Calcium (Lipitor*) 5 mg PO BEDTIME [facility] Last Admin: 09/27/17 23:18 Dose: 5 mg Enoxaparin Sodium (Lovenox(*)) 40 mg SUBCUT Q24H [facility] Last Admin: 09/27/17 23:18 Dose: 40 mg Fluticasone/Vilanterol (Breo Ellipta Mdi 100/25(Nf)) 1 puff INH QAM [facility] Last Admin: 09/28/17 07:29 Dose: Not Given Hydrochlorothiazide (Hydrodiuril Tab*) 25 mg PO QAM [facility] Last Admin: 09/28/17 07:58 Dose: 25 mg Sodium Chloride (Ns 0.9% 1000 Ml*) 1,000 mls @ 200 mls/hr IV PER RATE [facility] Stop: 09/29/17 01:44 Last Admin: 09/28/17 04:02 Dose: 200 mls/hr Magnesium Sulfate 3 gm/ Sodium (Chloride) 106 mls @ 53 mls/hr IVPB ONCE ONE Stop: 09/28/17 13:24 Metformin HCl (Glucophage*) 500 mg PO DAILY [facility] Last Admin: 09/28/17 07:58 Dose: 500 mg Methylprednisolone Sodium Succinate (Solu-Medrol 40 Mg) 40 mg IV Q12H [facility] Last Admin: 09/28/17 07:58 Dose: 40 mg Multivitamins/Minerals (Theragran/Minerals Tab*) 1 tab PO DAILY [facility] Last Admin: 09/28/17 07:58 Dose: 1 tab Ondansetron HCl (Zofran Inj*) 4 mg IV Q4H PRN PRN Reason: NAUSEA/VOMITING Tamsulosin HCl (Flomax Cap*) 0.4 mg PO BEDTIME [facility] Umeclidinium [place] (Incruse Ellipta Mdi (Nf)) 1 inh INH DAILY [facility] Last Admin: 09/28/17 07:29 Dose: Not Given Vital Signs - 8 hr 09/28/17 09/28/17 07:26 08:58 Pulse Rate 83 Respiratory 16 16 Rate Blood Pressure 123/75 (mmHg) O2 Sat by Pulse 100 92 Oximetry Oxygen Devices in Use Now: None Appearance: NAD Eyes: No Scleral Icterus, PERRLA Ears/Nose/Mouth/Throat: NL Teeth, Lips, Gums, Mucous Membranes Moist Neck: NL Appearance and Movements; NL JVP Respiratory: - - moderately decreased air exchange. expiratory wheezes. no rales. Cardiovascular: NL Sounds; No Murmurs; No JVD Abdominal: NL Sounds; No Tenderness; No Distention, No Hepatosplenomegaly Extremities: No Edema, No Clubbing, Cyanosis Skin: No Rash or Ulcers, No Nodules or Sclerosis Neurological: Alert and Oriented x 3, NL Sensation, NL Muscle Strength and Tone Result Diagrams: 09/28/17 05:57 09/28/17 05:57 Additional Lab and Data: Laboratory Results - last 24 hr 09/27/17 09/27/17 09/27/17 19:00 19:00 19:00 WBC 11.8 H RBC 4.65 Hgb 15.8 Hct 46 MCV 98 H MCH 34 H MCHC 35 RDW 14 Plt Count 135 L MPV 8 Neut % (Auto) 85.1 H Lymph % (Auto) 7.2 L [place] % (Auto) 7.0 Eos % (Auto) 0.1 Baso % (Auto) 0.6 Absolute Neuts (auto) 10.1 H Absolute Lymphs (auto) 0.9 L Absolute Monos (auto) 0.8 Absolute Eos (auto) 0 Absolute Basos (auto) 0.1 Absolute Nucleated RBC 0 Nucleated RBC % 0.1 INR (Anticoag Therapy) 1.16 H APTT 30.8 D-Dimer, Quantitative < 200 Patient Temperature ABG pH ABG pH (Temp Correct) ABG pCO2 ABG pCO2 (Temp Corrct ABG pO2 ABG pO2 (Temp Correct ABG HCO3 ABG O2 Saturation ABG Base Excess Respiration Rate O2 Delivery Device Ventilator Type Vent Mode FiO2 Inspiratory Time PEEP Pressure Support Pressure Control EPAP IPAP BiPAP Sodium Potassium Chloride Carbon Dioxide Anion Gap BUN Creatinine Est GFR ( Amer) Est GFR (Non-Af Amer) BUN/Creatinine Ratio Glucose Lactic Acid Calcium Magnesium Total Bilirubin AST ALT Alkaline Phosphatase Troponin I B-Natriuretic Peptide 65 Total Protein Albumin Globulin Albumin/Globulin Ratio Procalcitonin Urine Color Urine Appearance Urine pH Ur Specific [place] Urine Protein Urine Ketones Urine Blood Urine Nitrate Urine Bilirubin Urine Urobilinogen Ur Leukocyte Esterase Urine WBC (Auto) Urine RBC (Auto) Ur Squamous Epith Cells Urine Bacteria Urine Glucose Influenza A (Rapid) Influenza B (Rapid) 09/27/17 09/27/17 09/27/17 19:00 19:00 19:00 WBC RBC Hgb Hct MCV MCH MCHC RDW Plt Count MPV Neut % (Auto) Lymph % (Auto) [place] % (Auto) Eos % (Auto) Baso % (Auto) Absolute Neuts (auto) Absolute Lymphs (auto) Absolute Monos (auto) Absolute Eos (auto) Absolute Basos (auto) Absolute Nucleated RBC Nucleated RBC % INR (Anticoag Therapy) APTT D-Dimer, Quantitative Patient Temperature ABG pH ABG pH (Temp Correct) ABG pCO2 ABG pCO2 (Temp Corrct ABG pO2 ABG pO2 (Temp Correct ABG HCO3 ABG O2 Saturation ABG Base Excess Respiration Rate O2 Delivery Device Ventilator Type Vent Mode FiO2 Inspiratory Time PEEP Pressure Support Pressure Control EPAP IPAP BiPAP Sodium 131 L Potassium 3.4 L Chloride 91 L Carbon Dioxide 30 Anion Gap 10 BUN 18 Creatinine 1.07 Est GFR ( Amer) 87.9 Est GFR (Non-Af Amer) 68.3 BUN/Creatinine Ratio 16.8 Glucose 154 H Lactic Acid 1.5 Calcium 9.1 Magnesium Total Bilirubin 1.10 H AST 19 ALT 29 Alkaline Phosphatase 75 Troponin I 0.01 B-Natriuretic Peptide Total Protein 6.9 Albumin 4.0 Globulin 2.9 Albumin/Globulin Ratio 1.4 Procalcitonin 0.2 Urine Color Urine Appearance Urine pH Ur Specific [place] Urine Protein Urine Ketones Urine Blood Urine Nitrate Urine Bilirubin Urine Urobilinogen Ur Leukocyte Esterase Urine WBC (Auto) Urine RBC (Auto) Ur Squamous Epith Cells Urine Bacteria Urine Glucose Influenza A (Rapid) Influenza B (Rapid) 09/27/17 09/27/17 09/27/17 19:15 20:38 21:50 WBC RBC Hgb Hct MCV MCH MCHC RDW Plt Count MPV Neut % (Auto) Lymph % (Auto) [place] % (Auto) Eos % (Auto) Baso % (Auto) Absolute Neuts (auto) Absolute Lymphs (auto) Absolute Monos (auto) Absolute Eos (auto) Absolute Basos (auto) Absolute Nucleated RBC Nucleated RBC % INR (Anticoag Therapy) APTT D-Dimer, Quantitative Patient Temperature Not Reportable ABG pH 7.49 H ABG pH (Temp Correct) Not Reportable ABG pCO2 39 ABG pCO2 (Temp Corrct Not Reportable ABG pO2 165 H ABG pO2 (Temp Correct Not Reportable ABG HCO3 29.4 ABG O2 Saturation 99.1 H ABG Base Excess 5.9 H Respiration Rate Not Reportable O2 Delivery Device 3.5lpm nc Ventilator Type Not Reportable Vent Mode Not Reportable FiO2 Not Reportable Inspiratory Time Not Reportable PEEP Not Reportable Pressure Support Not Reportable Pressure Control Not Reportable EPAP Not Reportable IPAP Not Reportable BiPAP Not Reportable Sodium Potassium Chloride Carbon Dioxide Anion Gap BUN Creatinine Est GFR ( Amer) Est GFR (Non-Af Amer) BUN/Creatinine Ratio Glucose Lactic Acid Calcium Magnesium Total Bilirubin AST ALT Alkaline Phosphatase Troponin I 0.02 B-Natriuretic Peptide Total Protein Albumin Globulin Albumin/Globulin Ratio Procalcitonin Urine Color Urine Appearance Urine pH Ur Specific [place] Urine Protein Urine Ketones Urine Blood Urine Nitrate Urine Bilirubin Urine Urobilinogen Ur Leukocyte Esterase Urine WBC (Auto) Urine RBC (Auto) Ur Squamous Epith Cells Urine Bacteria Urine Glucose Influenza A (Rapid) Negative Influenza B (Rapid) Negative 09/27/17 09/28/17 09/28/17 22:30 01:56 05:57 WBC 7.0 RBC 4.14 Hgb 14.1 Hct 41 L MCV 99 H MCH 34 H MCHC 35 RDW 14 Plt Count 106 L MPV 8 Neut % (Auto) 91.5 H Lymph % (Auto) 5.9 L [place] % (Auto) 2.3 Eos % (Auto) 0 Baso % (Auto) 0.3 Absolute Neuts (auto) 6.4 Absolute Lymphs (auto) 0.4 L Absolute Monos (auto) 0.2 Absolute Eos (auto) 0 Absolute Basos (auto) 0 Absolute Nucleated RBC 0 Nucleated RBC % 0.1 INR (Anticoag Therapy) APTT D-Dimer, Quantitative Patient Temperature ABG pH ABG pH (Temp Correct) ABG pCO2 ABG pCO2 (Temp Corrct ABG pO2 ABG pO2 (Temp Correct ABG HCO3 ABG O2 Saturation ABG Base Excess Respiration Rate O2 Delivery Device Ventilator Type Vent Mode FiO2 Inspiratory Time PEEP Pressure Support Pressure Control EPAP IPAP BiPAP Sodium Potassium Chloride Carbon Dioxide Anion Gap BUN Creatinine Est GFR ( Amer) Est GFR (Non-Af Amer) BUN/Creatinine Ratio Glucose Lactic Acid Calcium Magnesium 1.6 L Total Bilirubin AST ALT Alkaline Phosphatase Troponin I 0.03 B-Natriuretic Peptide Total Protein Albumin Globulin Albumin/Globulin Ratio Procalcitonin Urine Color Arely Urine Appearance Clear Urine pH 5.0 Ur Specific [place] 1.025 Urine Protein 1+(30 mg/dl) H Urine Ketones 1+ H Urine Blood Negative Urine Nitrate Negative Urine Bilirubin Negative Urine Urobilinogen Positive H Ur Leukocyte Esterase Negative Urine WBC (Auto) Trace(0-5/hpf) Urine RBC (Auto) 1+(3-5/hpf) H Ur Squamous Epith Cells Present H Urine Bacteria Absent Urine Glucose Negative Influenza A (Rapid) Influenza B (Rapid) 09/28/17 05:57 WBC RBC Hgb Hct MCV MCH MCHC RDW Plt Count MPV Neut % (Auto) Lymph % (Auto) [place] % (Auto) Eos % (Auto) Baso % (Auto) Absolute Neuts (auto) Absolute Lymphs (auto) Absolute Monos (auto) Absolute Eos (auto) Absolute Basos (auto) Absolute Nucleated RBC Nucleated RBC % INR (Anticoag Therapy) APTT D-Dimer, Quantitative Patient Temperature ABG pH ABG pH (Temp Correct) ABG pCO2 ABG pCO2 (Temp Corrct ABG pO2 ABG pO2 (Temp Correct ABG HCO3 ABG O2 Saturation ABG Base Excess Respiration Rate O2 Delivery Device Ventilator Type Vent Mode FiO2 Inspiratory Time PEEP Pressure Support Pressure Control EPAP IPAP BiPAP Sodium 133 Potassium 3.6 Chloride 95 L Carbon Dioxide 29 Anion Gap 9 BUN 17 Creatinine 0.86 Est GFR ( Amer) 113.1 Est GFR (Non-Af Amer) 87.9 BUN/Creatinine Ratio 19.8 Glucose 220 H Lactic Acid Calcium 8.7 Magnesium Total Bilirubin AST ALT Alkaline Phosphatase Troponin I B-Natriuretic Peptide Total Protein Albumin Globulin Albumin/Globulin Ratio Procalcitonin Urine Color Urine Appearance Urine pH Ur Specific [place] Urine Protein Urine Ketones Urine Blood Urine Nitrate Urine Bilirubin Urine Urobilinogen Ur Leukocyte Esterase Urine WBC (Auto) Urine RBC (Auto) Ur Squamous Epith Cells Urine Bacteria Urine Glucose Influenza A (Rapid) Influenza B (Rapid) Microbiology and Other Data: Microbiology 09/27/17 22:30 Sputum Expectorated Gram Stain - Final 09/27/17 19:34 Nasal Influenza Types A,B Antigen (LISBETH) - Final Specimen received for Influenza A/B Molecular testing Assess/Plan/Problems-Billing Assessment: 72 yo male PMH COPD, MYRON on CPAP, current smoker, recent COPD exacerabtion + PNA s/p 10 days ceftin, 5 azithromycin and steroid taper p/w with productive cough, hypoxic respiratory failure. COPD exaccerbation improved on IV steroids. - Patient Problems (1) COPD exacerbation Current Visit: No Status: Acute Priority: High Code(s): J44.1 - CHRONIC OBSTRUCTIVE PULMONARY DISEASE W (ACUTE) EXACERBATION SNOMED Code(s): 888350075232342 Comment: Continue duonebs prn, dulera. solumedrol 40mg q12, s/p 125mg in ED. Planned long taper box will be smoking cessation. s/p cftx and azithromycin in ED. Continue for COPD exaccerbation. (2) BPH (benign prostatic hyperplasia) Current Visit: No Status: Chronic Priority: High Code(s): N40.0 - BENIGN PROSTATIC HYPERPLASIA WITHOUT LOWER URINRY TRACT SYMP SNOMED Code(s): 141562203 Comment: Continue tamsulosin. (3) HTN (hypertension) Current Visit: No Status: Chronic Priority: High Code(s): I10 - ESSENTIAL (PRIMARY) HYPERTENSION SNOMED Code(s): 78981173 Comment: hctz 25mg normotensive (4) MYRON (obstructive sleep apnea) Current Visit: No Status: Chronic Priority: High Code(s): G47.33 - OBSTRUCTIVE SLEEP APNEA (ADULT) (PEDIATRIC) SNOMED Code(s): 34117215 Comment: Continue home CPAP use. (5) SVT (supraventricular tachycardia) Current Visit: Yes Status: Acute Code(s): I47.1 - SUPRAVENTRICULAR TACHYCARDIA SNOMED Code(s): 8972630 Comment: 20 beat run this AM. replete lytes. Mg>2, K>4 Status and Disposition: medicine observation. May be able to leave later in afternoon. Attending: Jem Rogers
[2017-09-28] MEDS ORDERED: Magnesium Sulfate 2 GM IV IVPB ONE (11:40)
[2017-09-28] MEDS ORDERED: Magnesium Sulfate 1 GM IV* 1 GM/100 ML BAG IV ONE (12:30)
[2017-09-28] MEDS ORDERED: Spiriva Inhaler DEVICE* 1 EACH DEVICE SCH (16:00)
[2017-09-28] MEDS ORDERED: cefTRIAXone(*) 1 GM in NS 0.9% 50 ML* 50 ML IVPB SCH (16:00)
[2017-09-28] MEDS: Mometasone/Formoter 200/5 MDI INH SCH ×2 (17:23→19:18)
[2017-09-28] MEDS: Tiotropium CAP.INH* CAP.INH/18 MCG (USE ORDER SET !) INH SCH (17:28)
[2017-09-28] MEDS ORDERED: Tamsulosin CAP* 0.4 MG PO SCH (21:00)
[2017-09-28] MEDS: Enoxaparin(*) 40 MG/0.4 ML SYR SUBCUT SCH (21:26)
[2017-09-28] MEDS: Atorvastatin* 10 MG TAB PO SCH (21:26)
[2017-09-29] MEDS: methylPREDNISolone SOD 40 MG* 1 ML VIAL IV SCH ×2 (08:04→09:22)
[2017-09-29] MEDS: Multivitamins/Minerals TAB PO SCH (08:04)
[2017-09-29] MEDS: metFORMIN* 500 MG TAB PO SCH (08:04)
[2017-09-29] MEDS: Hydrochlorothiazide TAB* 25 MG PO SCH (08:04)
[2017-09-29] MEDS: Mometasone/Formoter 200/5 MDI INH SCH (08:40)
[2017-09-29] MEDS: Tiotropium CAP.INH* CAP.INH/18 MCG (USE ORDER SET !) INH SCH (08:40)
[2017-09-29 08:53] LABS: EGFR Non-African American 76.5 (>60)
[2017-09-29 11:31] VITALS: BP 119/70
--- NOTE | 2017-09-29 23:53 | DS ---
DISCHARGE SUMMARY: DATE OF ADMISSION: 09/27/17 DATE OF DISCHARGE: 09/29/17 ADMITTING PROVIDER: Jordin Dooley MD ATTENDING PHYSICIAN: Jem Rogers MD PRIMARY CARE PHYSICIAN: Lluvia Stevens NP CHIEF COMPLAINT: Shortness of breath. PRINCIPAL DIAGNOSIS: Chronic obstructive pulmonary disease exacerbation in the setting of continued smoking. HISTORY OF PRESENT ILLNESS AND HOSPITAL COURSE: Brandan Taylor is a 72-year-old male with PMH of diabetes mellitus type 2, COPD, hypertension, hyperlipidemia, obesity, BPH, obstructive sleep apnea on CPAP nightly with recent admission between 09/08/17 and 09/10/17 for COPD and pneumonia. He had been discharged on a 10-day course of antibiotics and slow steroid taper and followed up with his primary care physician. He had felt improved until 4 days prior to admission when he started to have decreased appetite, increased cough and phlegm production with green to yellow phlegm, increased fatigue and started to fall asleep on 4 p.m. each night. He started to use his oxygen during the day, except just at night, started Mucinex without relief of rhinorrhea, had developed some sinus pressure, had some palpitations, though he would later not remember these. He was found to be requiring 3 L in the emergency room to maintain saturation of 89% and he was admitted for COPD exacerbation, started on 125 mg of Solu-Medrol in the emergency room and then 40 mg q.12. He got dose of ceftriaxone and azithromycin. Ceftriaxone was continued. Sputum culture was obtained, which showed normal melyssa. The cultures were negative x1 day. Flu swabs were negative. He initially had a slight leukocytosis of 11.8, improved to 7.0 on hospital day #2 and the procalcitonin which was within normal limits of 0.2. He was afebrile throughout admission, hemodynamically stable, did have 2 episodes of SVT 5 and 7 beats respectively and his magnesium and potassium were repleted. Magnesium initially at 1.6. The patient is feeling subjectively improved. Air exchange has improved since admission, still requiring up to 2 L of oxygen, though has always been maintaining sats in the low 90s. He is being recommended to followup with Lluvia Stevens NP within 5 days of discharge and Dr[address] Mix within 2 weeks of discharge. He was treated with Dulera and Spiriva while in the hospital, but we restart on his home Breo Ellipta and Incruse along with home albuterol MDI inhaler p.r.n. He is being discharged on a tapering course of prednisone and 4 more days of azithromycin. He had a chest x-ray upon admission that did not show any signs of infiltrate. Of note, he had been found to have a hemoglobin A1c of 6.6 at the last admission and was started on metformin 500 mg daily upon admission and will be continued on 500 mg p.o. b.i.d. Planned to follow up with his primary care physician. DISCHARGE MEDICATIONS: Include: 1. Hydrochlorothiazide 25 mg p.o. q.a.m. 2. Metformin 500 mg p.o. b.i.d. 3. Multivitamin 1 tab p.o. daily. 4. Simvastatin 10 mg p.o. q.p.m. 5. Flomax 0.4 mg p.o. q.p.m. 6. Albuterol MDI inhaler (Ventolin) 2 puffs inhaled q.4 hours p.r.n. 7. Azithromycin 250 mg p.o. daily for 4 tabs. 8. Breo Ellipta 1 puff inhaled q.a.m. 9. Advil PM 1 tab p.o. at bedtime p.r.n. insomnia. 10. Nicotine gum 2 mg p.o. q.2 hours p.r.n. (new). 11. Nicotine patch 14 mg transdermal patch daily (new). 12. Prednisone 10 mg tabs to be taken 60 mg x3 days, 50 mg x3 days, 40 mg x3 days, 30 mg x3 days, 20 mg x3 days, 10 mg x3 days, then stop. 13. Incruse Ellipta 62.5 mcg inhaled daily. DISCHARGE DIET: Carbohydrate consistent. ACTIVITY RESTRICTION: No restrictions. FOLLOWUP: Please follow up with Lluvia Stevens NP within 5 days of [address] Mix within 2 weeks of discharge. Please note, he has been started on new medications including metformin for newly diagnosed diabetes mellitus. TIME SPENT ON DISCHARGE: Thirty-five minutes. [id number]/CPS #: [id number] KORINA
== END 2017-09-29 14:28 | disposition home or self-care (01) | DRG 191 ==
LOC: ED 18:23 → MED 20:47 → OBSVTOIN 09-28 16:09
PROVIDERS: ADMIT Internal Medicine; ATTEND Internal Medicine
DX: J44.1 Chronic obstructive pulmonary disease with (acute) exacerbation (principal); I47.1 Supraventricular tachycardia; E11.9 Type 2 diabetes mellitus without complications; F17.210 Nicotine dependence, cigarettes, uncomplicated; I10 Essential (primary) hypertension; E78.5 Hyperlipidemia, unspecified; E66.9 Obesity, unspecified; N40.0 Benign prostatic hyperplasia without lower urinary tract symptoms; E86.0 Dehydration; G47.33 Obstructive sleep apnea (adult) (pediatric); Z79.1 Long term (current) use of non-steroidal anti-inflammatories (NSAID); Z68.36 Body mass index [BMI] 36.0-36.9, adult; Z79.899 Other long term (current) drug therapy; Z88.5 Allergy status to narcotic agent; Z80.0 Family history of malignant neoplasm of digestive organs; Z82.3 Family history of stroke; Z79.84 Long term (current) use of oral hypoglycemic drugs
CPT/HCPCS: 36415; 36600; 71045; 80048; 80053; 81003; 81015; 82803; 83605; 83735; 83880; 84145; 84484; 85025; 85379; 85610; 85730; 87040; 87070; 87205; 87502; 93005; 94640; 94760; 99284; A9270-GY; J0456; J0696; J1650; J2920; J2930; J3475

== ENCOUNTER 2017-10-31 16:04 | Inpatient (IN) | payer MEDICARE ==
[2017-10-31] MEDS ORDERED: NS 0.9% 1000 ML* 2,000 ML IV ONE (16:19)
[2017-10-31 16:51] LABS: ABS Basophils 0.1 10^3/ul (0-0.2); ABS Eosinophils 0 10^3/ul (0-0.6); ABS Lymphocytes 0.9 10^3/ul (1.0-4.8); ABS Monocytes 0.6 10^3/ul (0-0.8); ABS Neutrophils 9.6 10^3/ul (1.5-7.7); ABS Nucleated RBC 0 10^3/ul; Eosinophil % 0 % (0-6); Hematocrit 45 % (42-52); Hemoglobin 14.7 g/dl (14.0-18.0); Lymphocyte % 8.1 % (25-47); Mean Corpuscular HGB Conc 33 g/dl (31-36); Mean Corpuscular Hemoglobin 34 pg (27-31); Mean Corpuscular Volume 102 fL (80-94); Mean Platelet Volume 9 um3 (7.4-10.4); Nucleated Red Blood Cells % 0; Platelet Count 247 10^3/ul (150-450); Red Blood Count 4.37 10^6/ul (4.0-5.4); Red Cell Distribution Width 14 % (10.5-15); White Blood Count 11.1 10^3/ul (3.5-10.8)
--- OUTSIDE RECORDS SUMMARY | 2017-10-31 17:03 | XMS REPORT ---
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 He eats a sandwich at lunch, dinner is pork chops or chicken with a fruit or vegetable, he cut the potatoes down, occasional burger and fries, he has cut the steak down to every two weeks. He tries to stay out of the vending machines. He will eat donuts on occassion. 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 Cigarette Use Cigarette Use Currently smokes 1-5 Cigarettes Daily ETOH Use Currently consumes alcohol 1-2 DRINKS DAILY Recreational Drug Use Denies Drug Use Smoking Patient is a current smoker, 1/2 ppd smokes every day Daily Caffeine Consumes on average 2 cups of coffee per day Exercise Limitations Shortness Of Breath he does not exercise much Allergies, Adverse Reactions, Alerts Date Description Reaction Status Severity Comments 06/28/2015 Hydrocodone active SOB 01/04/2009 NKDA inactive Medications Medication Date Status Form Strength Qnty SIG Indications Ordering Provider Ipratropium 11/29 Active Solution 0.02% 75ml inhale one J44.1 Parker Soper vial three Wai ferrara MD daily as needed for shortness of breath Ventolin HFA 07/19 Active Aerosol 108(90Bas 24gm inhale two J44.9 e) puffs by Chelsea Stevens mcg/Act mouth [facility] every 4 hours as needed for wheeze Incruse Ellipta 07/19 Active Aerosol 62.5mcg/I 90uni 1 puff J44.9 /2014 nh ts daily for Megan. Rodney, copd, [facility] replaces spiriva Flomax 03/11 Active Capsules 0.4mg 90cap take one R31.9 s capsule by Chelsea Stevens mouth [facility]-C every day (bph) Albuterol Sulfate 12/17 Active Nebulizer (2.5mg/3M 75ml use one 466.0 L) 0.083% vial in Chelsea Stevens, nebulizer [facility]-C four times a day as needed wheeze/peter rtness of breath Aerochamber 07/15 Active Misc 1unit use with w W/Flows s albuterol Chelsea Stevens, and [facility] flovent Nhan Meter 07/15 Active use daily to measure Chelsea tSevens lung [facility]-C volumes Nasonex 04/28 Active Suspension 50mcg/Act 17gm 2 sprays J44.1 each Chelsea Stevens nostril [facility]-C daily for rhinitis Nebulizer 04/20 Active Kit use as Jael Kit/Tubing/Mouthp directed Ernestina webb for COPD Rebecca Olivarez Multi 01/16 Active Tablets 1 po daily helen Vitamin/Minerals Chelsea Stevens [facility]-C Simvastatin 11/20 Active Tablets 10mg 90tab Take 1 E78.5 s Tablet By Chelsea Stevens Mouth At [facility]-C Bedtime For Hyperlipid emia Hydrochlorothiazi 06/24 Active Tablets 25mg 90tab Take 1 I10 wnt s Tablet By Chelsea Stevens, Mouth [facility]-C Every Day For High Blood Pressure Finasteride Active Tablets 5mg 1 po daily Unknown Potassium Citrate Active Tablets ER 10Meq Unknown ER (1080 mg) Breo Ellipta Active Aerosol 100-25mcg 1 puff Unknown /Inh once per day, rinse mouth after Prednisone Active Tablets 10mg 1 by mouth Unknown every day Nicotine Active Gum 2mg chew 1 Unknown Polacrilex piece by mouth 24 times per day for 30 minute as needed for smoking cessation Nicotine Active Patches 7mg/24HR Unknown Transdermal 24HR System Chantix Starting 02/11 Hx Tablets 0.5mg X 60tab one by Lluvia 11 & s mouth Chelsea Stevens, - 1 mg X 42 twice a [facility]-C 07/29 day, per package directions Meclizine HCL 12/26 Hx Tablets 25mg 30tab 1 tablet H81.10 Leni s three Neri, - times a [facility]-C 02/11 day needed dizziness Levofloxacin 11/29 Hx Tablets 750mg 7tabs take one J44.1 daily for Wai - 7 days , 02/11 Prednisone 11/29 Hx Tablets 20mg 20tab take 3 J44.1 s tabs by Wai - mouth x 3 , 02/11 days, 2 tabs by mouth x 3 days, then 1 tab by mouth x 3 days then 1/2 tab by mouth x 4 days Tizanidine HCL 08/16 Hx Capsules 4mg 30cap take one M46.1 s capsule by Chelsea Stevens, - mouth [facility] 11/29 before if needed for muscle tightness Multi Complete 01/15 Hx Capsules daily helen Chelsea Stevens, - [facility]-C 11/29 Serevent Diskus 07/19 Hx Aerosol 50mcg/Dos 180un 1 puff J44.9 e its twice a Pena, - day for M.Joo 07/29 copd Ciprofloxacin HCL 03/11 Hx Tablets 500mg 10tab 1 by mouth 599.70 s twice a Chelsea Stevens, - day for [facility] 03/21 infection Prednisone 12/17 Hx Tablets 20mg QS 3 by mouth 466.0 every day Chelsea Stevens, - x 3 days, [facility] 12/31 2 by mouth /2014 every day x 3 days, 1 by mouth every day x 3 days, 1/2 by mouth every day x 4 days Guaifenesin ac 12/17 Hx Syrup 100-10mg/ 150ml 1 teaspoon 466.0 5ML by mouth Chelsea Stevens, - q4hr as [facility]-C 05/12 needed cough Foradil Aerolizer 12/09 Hx Capsules 12mcg 180ca inahle 1 496 ps capsule Neri, - two times [facility]-C 07/19 a day copd Nicotrol 07/15 Hx Inhaler 10mg 168un inhale as its needed for Chelsea Stevens, - nicotine [facility] 01/15 replace t Varivax 07/15 Hx Injection 1350Pfu/0 1unit inject .5ML s 0.5ml sq Chelsea Stevens, - now [facility]-C 11/29 Proair HFA 11/24 Hx Aerosol 108(90Bas 8.500 2 puffs 496 e) gm every 4-6 Chelsea Stevens, - mcg/Act hours as [facility]-C 07/19 needed wheezing or shortness of breath Flovent HFA 11/24 Hx Aerosol 220mcg/Ac 12uni inhale 2 J44.9 t ts puffs two Chelsea Stevens, - times a [facility] 07/29 day for breathing Miralax 08/28 Hx Powder [id number] 510gm 1 heaping 789.04 tsp po 1 Chelsea Stevens, - or 2 times [facility] 05/12 daily for stools, Guaifenesin/Codei 04/28 Hx Syrup 100-10mg/ 150ml 1-2 tsp po 491.21 5ML q6hrs prn Chelsea Stevens, - cough [facility]-C 07/13 Prednisone 04/23 Hx Tablets 20mg QS 3 po qd x 491.21 2days, 2 Chelsea Stevens, - po qd x 2 [facility] 07/13 days, po qd x 2 days, 09/03 po qd x 2 days Cefuroxime Axetil 04/20 Hx Tablets 500mg 20tab one po bid s x 10 days P. - Blegen, 07/13.D Nicotine 04/20 Hx Patches 14mg/24HR 14uni stop 305.1 24HR ts smoking- P. - apply one Blegen, 01/15 in the . morning, take off at night Albuterol Sulfate 04/20 Hx Nebulizer (2.5mg/3M 1Box inhale neb L) 0.083% as P. - directed q Blegen, 12/17 4 hours M.D. prn shortness of breath/ wheezing Pulmicort 12/24 Hx Aerosol 180mcg/Ac 3mont 1 puff bid 496 nt Flexhaler t h Chelsea Stevens, - [facility]RESS-C 11/24 Formoterol 12/24 Hx Powder 3mont inhale 1 496 wnti Fumarate h capsule Chelsea Stevens, - bid for [facility] 12/09 COPD Prednisone 12/24 Hx Tablets 50mg 5tabs one pill po daily P. - for 5 days Blegen, 04/23 for .D. breathing- take with food Chantix 12/08 Hx Tablets 0.5mg X 60tab take by 305.1 11 & s mouth as Chelsea Stevens, - 1 mg X 42 directed [facility]-C 07/13 Symbicort 11/21 Hx Aerosol 160-4.5mc 1mont 2 puffs 496 helen g/Act h bid for Chelsea Stevens, - lung [facility]-C 12/24 disease Prednisone 11/21 Hx Tablets 50mg 5tabs one pill po daily Chelsea Stevens, - for 5 days [facility] 07/13 breathing Azithromycin 11/21 Hx Tablets 250mg 6tabs 2 po today then 1 po Chelsea Stevens, - daily for [facility]-C 04/20 4 Ventolin HFA 09/29 Hx Aerosol 108(90Bas 1unit inhale 2 496 Jael e) s puffs by P. - mcg/Act mouth Blegen, 11/24 every 4 M.D. hours prn cough, wheeze, SOB Ciprofloxacin HCL 05/10 Hx Tablets 500mg 6tabs take 1 599.70 Leni tablet po Neri, - bid x 3 [facility] Ventolin HFA 03/14 Hx Aerosol 108(90Bas 1unit inhale 2 496 e) mcg/ac s puffs by Chelsea Stevens, - mouth [facility]-C 09/29 every hours prn cough, wheeze, SOB Zithromax Z-Carlos 07/31 Hx Tablets 250mg 6tabs 2 po on 465.9 day 1, 1 Chelsea Stevens, - po on days [facility] 08/10 2- Robitussin ac 07/31 Hx 150ml 1-2 tsp po 465.9 q4-6hr prn Chelsea Stevens, - cough/pain [facility] 08/10 Cephalexin 05/22 Hx Tablets 500mg 30tab 1 po tid s for 10 Chelsea Stevens, - days for [facility]-C 06/01 infection Nicoderm CQ 08/29 Hx Patches 14mg/24HR 21uni apply one 305.1 nt 24HR ts patch to Megan. Rodney, - skin, [facility]-C 03/01 replace daily for 21 days then start 7mg patches Nicoderm CQ 08/29 Hx Patches 7mg/24HR 21uni apply one 305.1 wnt 24HR ts patch to Chelsea Stevens, - skin, [facility]-C 03/01 change daily for three weeks, start after 14mg dose is complete Clotrimazole/Beta 08/15 Hx Cream 1-0.05% 1tube apply to 782.1 [facility] methasone affected Chelsea Stevens, Dipropionate - area tid [facility]-C 01/15 until resolved Chantix 02/27 Hx Tablets 1mg 60tab 1 po bid s for Chelsea Stevens, - smoking [facility] 03/01 cessation Aspirin 01/16 Hx Tablets 325mg 1 daily for heart Chelsea Stevens, - [facility]RESS-C 01/15 Vitamin C 01/16 Hx Chewtabs 500mg 1 po qd Chelsea Stevens, - [facility]-C 05/12 Cialis 01/16 Hx Tablets 10mg 1 po prior 608.89 to sexual Chelsea Stevens, - activity [facility] 05/12 if needed, may take every three days prn Formoterol 01/16 Hx Powder 3mont inhale 1 496 nt h capsule Chelsea Stevens, - bid for [facility]-C 11/21 COPD /2012 Chantix Starting 01/16 Hx Tablets 0.5mg X 1mont take by 305.1 11 & h mouth as Chelsea Stevens, - 1 mg X directed [facility]-C 08/29 Zithromax Z-Carlos 06/28 Hx Tablets 250mg 6tabs 2 po on 466.0 day 1, 1 Chelsea Stevens, - po on days [facility]-C 07/08 2- Prednisone 06/28 Hx Tablets 10mg 42tab take 6 466.0 s tabs by Chelsea Stevens, - mouth [facility]-C 08/18 today and tomorrow, decrease by one tab every other day then 10mg by mouth for two days, then stop Robitussin ac 06/28 Hx 150ml 1-2 tsp po 466.0 q4-6hr prn Chelsea Stevens, - cough/pain [facility]-C 08/18 Nasonex 01/04 Hx Suspension 50mcg/Act 3mont 2 sprays 477.9 h each Chelsea Stevens, - nostril [facility]-C 03/01 daily for rhinitis Spiriva 01/04 Hx Capsules 18mcg 90cap inhale 496 Shawnti Handihaler /2008 s contents Chelsea Stevens, - of 1 [facility]-C 07/19 once daily Ventolin HFA 11/11 Hx Aerosol 108mcg/Ac 4unit inhale 2 496 Shawnti t s puffs by Chelsea Stevens, - mouth [facility]-C 03/14 every hours prn cough, wheeze, SOB Pulmicort 05/27 Hx Inhaler 180mcg/Ac 3mont 1 Puffs 496 Shawnti Flexhaler /2007 t h bid for Chelsea Stevens, - COPD [facility]-C 11/21 Cock Up Wrist 05/27 Hx right 729.2 Shawnti Splint /2007 wrist Chelsea Stevens, - splint, [facility]RESS-C 08/18 wear night, remove in the morning Albuterol 11/20 Hx Aerosol 90mcg/Act 4unit 2 puffs 496 Shawnti /2007 s every - Chelsea Stevens, - hours if [facility]RESS-C 11/11 needed for cough, wheeze or shortness of breath Chantix 06/24 Hx Tablets 1mg 60tab 1 po bid 305.1 Shawnt s for Chelsea Stevens, - smoking [facility]-C 03/01 cessation Lipitor 06/24 Hx Tablets 10mg 1 po daily 272.4 Shawnti for high Chelsea Rodney, - cholestero [facility] WA[facility]RESS-C 11/20 l Flomax 06/24 Hx Caps ER 0.4mg 1 po daily 600.01 Shawnti 24HR for large Chelsea Stevens, - postate [facility] WA[facility]RESS-C 01/16 Immunizations CPT Code Status Date Vaccine Lot # [id number] Given 06/03/2017 Influenza Vaccine High Dose PF [id number] 87971 Given 06/04/2016 Influenza Vaccine High Dose PF [id number] 36318 Given 05/12/2015 Influenza Virus Vaccine, Quadrivalent, 3 Yr > [id number] Quad, Preserv Free 81566 Given 07/16/2014 Zoster Vaccine 10596 Given 07/15/2014 Pneumovax 23 (PPSV23) 65+ years or high risk 2 to [id number] 66 year old 27581 Given 06/28/2014 Zoster Vaccine 28540 Given 05/25/2014 Influenza Vaccine High Dose PF [id number] 53750 Given 07/13/2013 Prevnar-13 Pneumococcal Conjugate Vaccine [id number] 92179 Given 05/18/2013 Influenza Vaccine High Dose PF [id number] 45155 Given 06/25/2012 Influenza Vaccine-Preservative Free 3 Yrs And [id number] Above 95383 Given 06/06/2011 Influenza Vaccine-Preservative Free 3 Yrs And [id number] Above 55744 Given 05/22/2010 Influenza Vaccine-Preservative Free 3 Yrs And [id number] Above 09207 Given 08/18/2009 H1N1 Influenza Vaccine [id number] 73765 Given 08/18/2009 H1N1 Immunization Administration, Including Counseling 36115 Given 01/04/2009 Tdap (Adacel) [id number] 93714 Given 06/28/2008 Pneumovax 23 (PPSV23) 65+ years or high risk 2 to [id number] 66 year old 07143 Given 06/28/2008 Influenza Virus Vaccine, 3 Yrs And Above [id number] Vital Signs Date Vital Result Comment 10/04/2017 Weight 272.00 lb Weight in kg's 123.379 BP Systolic 130 mmHg BP Diastolic 78 mmHg Heart Rate 84 /min Body Temperature 97.0 F Respiratory Rate 16 /min O2 % BldC Oximetry 94 % 09/20/2017 Weight 275.00 lb Weight in kg's 124.740 BP Systolic 138 mmHg BP Diastolic 78 mmHg Heart Rate 78 /min Body Temperature 96.9 F Respiratory Rate 16 /min O2 % BldC Oximetry 95 % 07/29/2017 Weight 285.00 lb Weight in kg's 129.276 BP Systolic 160 mmHg BP Diastolic 88 mmHg Heart Rate 80 /min Body Temperature 97.9 F Respiratory Rate 16 /min Height 72 inches 6'0" BMI (Body Mass Index) 38.6 kg/m2 O2 % BldC Oximetry 96 % 02/11/2017 Weight 279.00 lb Weight in kg's 126.554 BP Systolic 120 mmHg BP Diastolic 84 mmHg Heart Rate 84 /min Body Temperature 97.3 F Respiratory Rate 20 /min Height 73 inches 6'1" BMI (Body Mass Index) 36.8 kg/m2 O2 % BldC Oximetry 93 % 2lt 12/26/2016 Weight 278.00 lb Weight in kg's 126.101 BP Systolic 140 mmHg BP Diastolic 80 mmHg Heart Rate 90 /min Body Temperature 96.3 F Respiratory Rate 24 /min O2 % BldC Oximetry 93 % 11/29/2016 Weight 272.00 lb Weight in kg's 123.379 BP Systolic 130 mmHg BP Diastolic 82 mmHg Heart Rate 104 /min Body Temperature 99.7 F Respiratory Rate 20 /min O2 % BldC Oximetry 96 % on 11/19/2016 Weight 273.00 lb Weight in kg's 123.833 BP Systolic 143 mmHg BP Diastolic 78 mmHg Heart Rate 76 /min Body Temperature 97.0 F O2 % BldC Oximetry 91 % 08/16/2016 Weight 272.00 lb Weight in kg's 123.379 BP Systolic 170 mmHg BP Diastolic 90 mmHg Heart Rate 80 /min Body Temperature 96.9 F Ibuprofen at 2pm Respiratory Rate 16 /min 01/16/2016 Weight 278.00 lb Weight in kg's 126.101 BP Systolic 143 mmHg BP Diastolic 82 mmHg Heart Rate 82 /min 07/19/2015 Weight 276.00 lb Weight in kg's 125.194 BP Systolic 156 mmHg BP Diastolic 84 mmHg Heart Rate 84 /min Height 73 inches 6'1" BMI (Body Mass Index) 36.4 kg/m2 06/28/2015 Weight 275.00 lb Weight in kg's 124.740 BP Systolic 120 mmHg BP Diastolic 70 mmHg Heart Rate 84 /min 05/12/2015 Weight 279.00 lb Weight in kg's 126.554 BP Systolic 140 mmHg BP Diastolic 90 mmHg Heart Rate 72 /min 03/11/2015 Weight 274.00 lb Weight in kg's 124.286 BP Systolic 140 mmHg BP Diastolic 92 mmHg Heart Rate 80 /min Body Temperature 96.7 F Asprin At10am 01/27/2015 Weight 277.00 lb Weight in kg's 125.647 BP Systolic 120 mmHg BP Diastolic 80 mmHg Heart Rate 76 /min 12/17/2014 Weight 278.00 lb Weight in kg's 126.101 BP Systolic 140 mmHg BP Diastolic 80 mmHg Heart Rate 100 /min Body Temperature 98.6 F O2 % BldC Oximetry 86 % Room Air 07/15/2014 Weight 279.00 lb Weight in kg's 126.554 BP Systolic 150 mmHg BP Diastolic 84 mmHg Heart Rate 88 /min Height 73 inches 6'1" BMI (Body Mass Index) 36.8 kg/m2 01/11/2014 Weight 285.00 lb Weight in kg's 129.276 BP Systolic 132 mmHg BP Diastolic 78 mmHg Heart Rate 68 /min 08/28/2013 Weight 277.00 lb Weight in kg's 125.647 BP Systolic 132 mmHg BP Diastolic 80 mmHg Heart Rate 88 /min Body Temperature 97.8 F 07/13/2013 Weight 264.00 lb Weight in kg's 119.750 BP Systolic 138 mmHg BP Diastolic 80 mmHg Heart Rate 64 /min Height 73 inches 6'1" BMI (Body Mass Index) 34.8 kg/m2 04/28/2013 Weight 276.00 lb Weight in kg's 125.194 BP Systolic 128 mmHg BP Diastolic 80 mmHg Heart Rate 96 /min 04/23/2013 Weight 275.00 lb Weight in kg's 124.740 BP Systolic 122 mmHg BP Diastolic 88 mmHg Heart Rate 76 /min Body Temperature 96.6 F O2 % BldC Oximetry 92 % level at rest 04/20/2013 Weight 277.00 lb Weight in kg's 125.647 BP Systolic 112 mmHg BP Diastolic 80 mmHg Heart Rate 104 /min Body Temperature 100.8 F O2 % BldC Oximetry 86 % level at rest, 91% Repeat 01/08/2013 Weight 279.00 lb Weight in kg's 126.554 BP Systolic 120 mmHg BP Diastolic 78 mmHg Heart Rate 88 /min O2 % BldC Oximetry 95 % 12/24/2012 Weight 284.00 lb Weight in kg's 128.822 BP Systolic 138 mmHg BP Diastolic 88 mmHg Heart Rate 84 /min O2 % BldC Oximetry 92 % Ra 12/08/2012 Weight 280.00 lb Weight in kg's 127.008 BP Systolic 116 mmHg BP Diastolic 80 mmHg Heart Rate 84 /min Body Temperature 97.7 F O2 % BldC Oximetry 96 % 11/21/2012 Weight 285.00 lb Weight in kg's 129.276 BP Systolic 132 mmHg BP Diastolic 80 mmHg Heart Rate 99 /min Body Temperature 97.3 F O2 % BldC Oximetry 97 % 05/10/2012 Weight 280.00 lb Weight in kg's 127.008 BP Systolic 150 mmHg BP Diastolic 90 mmHg Heart Rate 88 /min 04/03/2012 Weight 285.00 lb Weight in kg's 129.276 BP Systolic 120 mmHg BP Diastolic 80 mmHg Heart Rate 96 /min Body Temperature 96.9 F 03/14/2012 Weight 289.00 lb Weight in kg's 131.090 BP Systolic 132 mmHg BP Diastolic 84 mmHg Heart Rate 84 /min Height 73.25 inches 6'1.25" BMI (Body Mass Index) 37.9 kg/m2 O2 % BldC Oximetry 95 % 09/14/2011 Weight 283.00 lb Weight in kg's 128.369 BP Systolic 132 mmHg BP Diastolic 80 mmHg Heart Rate 95 /min O2 % BldC Oximetry 95 % 07/31/2011 Weight 274.00 lb Weight in kg's 124.286 BP Systolic 136 mmHg BP Diastolic 74 mmHg Heart Rate 100 /min Body Temperature 98.5 F 05/22/2011 Weight 279.00 lb Weight in kg's 126.554 BP Systolic 120 mmHg BP Diastolic 70 mmHg Heart Rate 88 /min 03/01/2011 Weight 279.00 lb Weight in kg's 126.554 BP Systolic 128 mmHg BP Diastolic 72 mmHg Heart Rate 96 /min Height 72.5 inches 6'0.50" BMI (Body Mass Index) 37.3 kg/m2 08/29/2010 Weight 287.00 lb Weight in kg's 130.183 BP Systolic 120 mmHg BP Diastolic 72 mmHg Heart Rate 96 /min O2 % BldC Oximetry 92 % At Room Air 08/15/2010 Weight 286.00 lb Weight in kg's 129.730 BP Systolic 130 mmHg BP Diastolic 78 mmHg Heart Rate 100 /min Body Temperature 95.2 F 02/27/2010 Weight 287.00 lb Weight in kg's 130.183 BP Systolic 120 mmHg BP Diastolic 80 mmHg Heart Rate 100 /min O2 % BldC Oximetry 95 % At Room Air 01/16/2010 Weight 283.00 lb Weight in kg's 128.369 BP Systolic 120 mmHg BP Diastolic 70 mmHg Heart Rate 96 /min Height 74 inches 6'2" BMI (Body Mass Index) 36.3 kg/m2 08/18/2009 Weight 292.00 lb Weight in kg's 132.451 BP Systolic 128 mmHg BP Diastolic 82 mmHg Heart Rate 96 /min 06/28/2009 Weight 288.00 lb Weight in kg's 130.637 BP Systolic 152 mmHg BP Diastolic 80 mmHg Heart Rate 84 /min Body Temperature 98.6 F 02/15/2009 Weight 285.00 lb Weight in kg's 129.276 BP Systolic 158 mmHg BP Diastolic 90 mmHg Heart Rate 76 /min Height 73.5 inches 6'1.50" BMI (Body Mass Index) 37.1 kg/m2 01/04/2009 Weight 274.00 lb Weight in kg's 124.286 BP Systolic 144 mmHg BP Diastolic 90 mmHg Heart Rate 84 /min Height 72.50 inches 6'0.50" BMI (Body Mass Index) 36.6 kg/m2 10/29/2008 Weight 279.00 lb Weight in kg's 126.554 BP Systolic 138 mmHg BP Diastolic 90 mmHg Heart Rate 80 /min 06/28/2008 Weight 268.00 lb Weight in kg's 121.565 BP Systolic 132 mmHg BP Diastolic 86 mmHg Heart Rate 94 /min Height 73 inches 6'1" BMI (Body Mass Index) 35.4 kg/m2 O2 % BldC Oximetry 98 % 05/27/2008 Weight 268.00 lb Weight in kg's 121.565 BP Systolic 122 mmHg BP Diastolic 82 mmHg Heart Rate 84 /min Body Temperature 97.0 F Height 73 inches 6'1" BMI (Body Mass Index) 35.4 kg/m2 O2 % BldC Oximetry 93 % 11/21/2007 Weight 264.00 lb Weight in kg's 119.750 BP Systolic 130 mmHg BP Diastolic 80 mmHg Heart Rate 72 /min Height 73 inches 6'1" BMI (Body Mass Index) 34.8 kg/m2 2007 Weight 257.00 lb Weight in kg's 116.575 BP Systolic 122 mmHg BP Diastolic 78 mmHg Heart Rate 68 /min Height 73 inches 6'1" BMI (Body Mass Index) 33.9 kg/m2 06/24/2007 Weight 250.00 lb Weight in kg's 113.400 BP Systolic 130 mmHg BP Diastolic 80 mmHg Heart Rate 76 /min Height 73 inches 6'1" BMI (Body Mass Index) 33.0 kg/m2 Results Test Date Test Result H/L Range Note Laboratory test finding 09/27/2017 Troponin-I (TnI) 0.02 ng/mL <0.04 Rapid Influenza A & 09/27/2017 Influenza A Molecular NEGATIVE Negative 1 B Molecular Influenza B Molecular NEGATIVE Negative Laboratory test finding 09/27/2017 Influenza A & B SEE RESULT BELOW 2 Request Arterial Blood Gas 09/27/2017 O2 Device 3.5lpm NC PH Arterial 7.49 High 7.35-7.45 Pco2 Arterial 39 mmHg 35-45 Po2 Arterial 165 mmHg High 80-100 O2 Saturation Arterial 99.1 % High 95-98 Base Excess Arterial 5.9 High -2.0-2.0 3 Hco3 Arterial 29.4 mmol/L 19-31 CBC Auto Diff 09/27/2017 White Blood Count 11.8 10^3/uL High 3.5-10.8 Red Blood Count 4.65 10^6/uL 4.0-5.4 Hemoglobin 15.8 g/dL 14.0-18.0 Hematocrit 46 % 42-52 Mean Corpuscular Volume 98 fL High 80-94 Mean Corpuscular Hemoglobin 34 pg High 27-31 Mean Corpuscular HGB Conc 35 g/dL 31-36 Red Cell Distribution Width 14 % 10.5-15 Platelet Count 135 10^3/uL Low 150-450 Mean Platelet Volume 8 um3 7.4-10.4 Abs Neutrophils 10.1 10^3/uL High 1.5-7.7 Abs Lymphocytes 0.9 10^3/uL Low 1.0-4.8 Abs Monocytes 0.8 10^3/uL 0-0.8 Abs Eosinophils 0 10^3/uL 0-0.6 Abs Basophils 0.1 10^3/uL 0-0.2 Abs Nucleated RBC 0 10^3/uL Granulocyte % 85.1 % High 38-83 Lymphocyte % 7.2 % Low 25-47 Monocyte % 7.0 % 1-9 Eosinophil % 0.1 % 0-6 Basophil % 0.6 % 0-2 Nucleated Red Blood Cells % 0.1 Inr/Protime 09/27/2017 Inr 1.16 High 0.77-1.02 Laboratory test finding 09/27/2017 Partial Thrombo Time 30.8 seconds 26.0 -36.3 PTT D Dimer Quantitative < 200 ng/mL Less Than 230 4 Comp Metabolic Panel 09/27/2017 Sodium 131 mmol/L Low 133-145 Potassium 3.4 mmol/L Low 3.5-5.0 Chloride 91 mmol/L Low 101-111 Co2 Carbon Dioxide 30 mmol/L 22-32 Anion Gap 10 mmol/L 2-11 Glucose 154 mg/dL High 70-100 Blood Urea Nitrogen 18 mg/dL 6-24 Creatinine 1.07 mg/dL 0.67-1.17 BUN/Creatinine Ratio 16.8 8-20 Calcium 9.1 mg/dL 8.6-10.3 Total Protein 6.9 g/dL 6.4-8.9 Albumin 4.0 g/dL 3.2-5.2 Globulin 2.9 g/dL 2-4 Albumin/Globulin Ratio 1.4 1-3 Total Bilirubin 1.10 mg/dL High 0.2-1.0 Alkaline Phosphatase 75 U/L 34-104 Alt 29 U/L 7-52 Ast 19 U/L 13-39 Egfr Non- 68.3 >60 Egfr 87.9 >60 5 Laboratory test finding 09/27/2017 Troponin-I (TnI) 0.01 ng/mL <0.04 B-Type Natriuretic Peptide BNP 65 pg/mL 6 Lactic Acid 1.5 mmol/L 0.5-2.0 7 Procalcitonin 0.2 ng/mL <0.6 8 Blood Culture SEE RESULT BELOW 9 Laboratory test 09/08/2017 Hemoglobin A1c 6.6 % High 4.0-5.6 10, 11 finding CBC Auto Diff 09/08/2017 White Blood Count 14.8 10^3/uL High 3.5-10.8 10 Red Blood Count 5.00 10^6/uL 4.0-5.4 10 Hemoglobin 16.9 g/dL 14.0-18.0 10 Hematocrit 49 % 42-52 10 Mean Corpuscular Volume 97 fL High 80-94 10 Mean Corpuscular Hemoglobin 34 pg High 27-31 10 Mean Corpuscular HGB Conc 35 g/dL 31-36 10 Red Cell Distribution Width 13 % 10.5-15 10 Platelet Count 145 10^3/uL Low 150-450 10 Mean Platelet Volume 8 um3 7.4-10.4 10 Abs Neutrophils 13.3 10^3/uL High 1.5-7.7 10 Abs Lymphocytes 0.7 10^3/uL Low 1.0-4.8 10 Abs Monocytes 0.7 10^3/uL 0-0.8 10 Abs Eosinophils 0 10^3/uL 0-0.6 10 Abs Basophils 0.2 10^3/uL 0-0.2 10 Abs Nucleated RBC 0.1 10^3/uL 10 Granulocyte % 89.6 % High 38-83 10 Lymphocyte % 4.6 % Low 25-47 10 Monocyte % 4.5 % 1-9 10 Eosinophil % 0.1 % 0-6 10 Basophil % 1.2 % 0-2 10 Nucleated Red Blood Cells % 0.3 10 Laboratory test 09/08/2017 B-Type Natriuretic 71 pg/mL 10, 12 finding Peptide BNP Inr/Protime 09/08/2017 Inr 1.20 High 0.77-1.02 10 Laboratory test 09/08/2017 C Reactive Protein 45.84 mg/L High < 5.00 10, 13 finding Troponin-I (TnI) 0.01 ng/mL <0.04 10 Comp Metabolic Panel 09/08/2017 Sodium 135 mmol/L 133-145 10 Potassium 3.4 mmol/L Low 3.5-5.0 10 Chloride 93 mmol/L Low 101-111 10 Co2 Carbon Dioxide 33 mmol/L High 22-32 10 Anion Gap 9 mmol/L 2-11 10 Glucose 179 mg/dL High 70-100 10 Blood Urea Nitrogen 19 mg/dL 6-24 10 Creatinine 1.21 mg/dL High 0.67-1.17 10 BUN/Creatinine Ratio 15.7 8-20 10 Calcium 9.5 mg/dL 8.6-10.3 10 Total Protein 6.9 g/dL 6.4-8.9 10 Albumin 4.1 g/dL 3.2-5.2 10 Globulin 2.8 g/dL 2-4 10 Albumin/Globulin Ratio 1.5 1-3 10 Total Bilirubin 1.00 mg/dL 0.2-1.0 10 Alkaline Phosphatase 57 U/L 34-104 10 Alt 63 U/L High 7-52 10 Ast 32 U/L 13-39 10 Egfr Non- 59.3 >60 10 Egfr 76.2 >60 10, 14 Laboratory test 09/08/2017 Lactic Acid 1.8 mmol/L 0.5-2.0 10, 15 finding Laboratory test 09/08/2017 Influenza A & B SEE RESULT 16 finding Request BELOW Laboratory test 08/07/2017 Surgical Pathology SEE RESULT 17 finding BELOW Laboratory test 08/07/2017 Point of Care Glucose 137 mg/dL High 70-100 18 finding Laboratory test 08/07/2017 Point of Care Glucose 139 mg/dL High 70-100 19 finding Laboratory test 07/29/2017 Hemoglobin A1c (Glyco 6.5 % High 4.0-5.6 20 finding HGB) Lipid Profile 07/29/2017 Triglycerides 198 mg/dL 21 (Trig/Chol/HDL) Cholesterol 186 mg/dL 22 HDL Cholesterol 63.0 mg/dL 23 LDL Cholesterol 83 mg/dL 24 Comp Metabolic Panel 07/29/2017 Sodium 137 mmol/L 133-145 Potassium 3.5 mmol/L 3.5-5.0 Chloride 90 mmol/L Low 101-111 Glucose 133 mg/dL High 70-100 Blood Urea Nitrogen 13 mg/dL 6-24 Creatinine 1.20 mg/dL High 0.67-1.17 BUN/Creatinine Ratio 10.8 8-20 Calcium 9.7 mg/dL 8.6-10.3 Total Protein 6.8 g/dL 6.4-8.9 Albumin 4.5 g/dL 3.2-5.2 Globulin 2.3 g/dL 2-4 Albumin/Globulin Ratio 2.0 1-3 Total Bilirubin 0.70 mg/dL 0.2-1.0 Alkaline Phosphatase 68 U/L 34-104 Alt 49 U/L 7-52 Ast 28 U/L 13-39 Egfr Non- 60.0 >60 Egfr 77.2 >60 25 Co2 Carbon Dioxide 39 mmol/L High 22-32 Anion Gap 8 mmol/L 2-11 CBC Auto Diff 07/29/2017 White Blood Count 8.9 10^3/uL 3.5-10.8 Red Blood Count 4.88 10^6/uL 4.0-5.4 Hemoglobin 16.6 g/dL 14.0-18.0 Hematocrit 48 % 42-52 Mean Corpuscular Volume 98 fL High 80-94 Mean Corpuscular Hemoglobin 34 pg High 27-31 Mean Corpuscular HGB Conc 35 g/dL 31-36 Red Cell Distribution Width 14 % 10.5-15 Platelet Count 173 10^3/uL 150-450 Mean Platelet Volume 9 um3 7.4-10.4 Abs Neutrophils 6.6 10^3/uL 1.5-7.7 Abs Lymphocytes 1.7 10^3/uL 1.0-4.8 Abs Monocytes 0.6 10^3/uL 0-0.8 Abs Eosinophils 0 10^3/uL 0-0.6 Abs Basophils 0 10^3/uL 0-0.2 Abs Nucleated RBC 0.01 10^3/uL Granulocyte % 73.7 % 38-83 Lymphocyte % 18.7 % Low 25-47 Monocyte % 7.0 % 1-9 Eosinophil % 0.3 % 0-6 Basophil % 0.3 % 0-2 Nucleated Red Blood Cells % 0.1 Urine DIP 02/11/2017 Leukocytes NEG Neg Urine Nitrites NEG Neg Urobilinogen NORM Norm Total Protein, Urine NEG Neg Urine pH 8 High 5-6 Urine Blood NEG Neg Specific [place] 1.005 Low 1.01-1.02 Urine Ketones NEG Neg Urine Bilirubin NEG Neg Urine Glucose NORM Norm Comp Metabolic Panel 02/11/2017 Sodium 135 mmol/L 133-145 Potassium 3.4 mmol/L Low 3.5-5.0 Chloride 88 mmol/L Low 101-111 Co2 Carbon Dioxide 37 mmol/L High 22-32 Anion Gap 10 mmol/L 2-11 Glucose 122 mg/dL High 70-100 Blood Urea Nitrogen 10 mg/dL 6-24 Creatinine 0.96 mg/dL 0.67-1.17 BUN/Creatinine Ratio 10.4 8-20 Calcium 10.0 mg/dL 8.6-10.3 Total Protein 7.1 g/dL 6.4-8.9 Albumin 4.6 g/dL 3.2-5.2 Globulin 2.5 g/dL 2-4 Albumin/Globulin Ratio 1.8 1-3 Total Bilirubin 0.80 mg/dL 0.2-1.0 Alkaline Phosphatase 60 U/L 34-104 Alt 83 U/L High 7-52 Ast 60 U/L High 13-39 Egfr Non- 77.7 >60 Egfr 99.9 >60 26 CBC Auto Diff 02/11/2017 White Blood Count 9.1 10^3/uL 3.5-10.8 Red Blood Count 4.72 10^6/uL 4.0-5.4 Hemoglobin 15.7 g/dL 14.0-18.0 Hematocrit 47 % 42-52 Mean Corpuscular Volume 99 fL High 80-94 Mean Corpuscular Hemoglobin 33 pg High 27-31 Mean Corpuscular HGB Conc 34 g/dL 31-36 Red Cell Distribution Width 15 % 10.5-15 Platelet Count 205 10^3/uL 150-450 Mean Platelet Volume 8 um3 7.4-10.4 Abs Neutrophils 6.3 10^3/uL 1.5-7.7 Abs Lymphocytes 1.9 10^3/uL 1.0-4.8 Abs Monocytes 0.7 10^3/uL 0-0.8 Abs Eosinophils 0 10^3/uL 0-0.6 Abs Basophils 0 10^3/uL 0-0.2 Abs Nucleated RBC 0.01 10^3/uL Granulocyte % 70.1 % 38-83 Lymphocyte % 21.2 % Low 25-47 Monocyte % 8.1 % 1-9 Eosinophil % 0.2 % 0-6 Basophil % 0.4 % 0-2 Nucleated Red Blood Cells % 0.1 Laboratory test 02/11/2017 TSH (Thyroid Stim Horm) 1.84 mcIU/mL 0.34- 5.60 27 finding Lipid Profile 02/11/2017 Triglycerides 134 mg/dL 28 (Trig/Chol/HDL) Cholesterol 195 mg/dL 29 HDL Cholesterol 69.1 mg/dL 30 LDL Cholesterol 99 mg/dL 31 Laboratory test 02/11/2017 Hemoglobin A1c (Glyco 6.7 % High Less than 6.0 32 finding HGB) Laboratory test 12/31/2016 B-Type Natriuretic 46 pg/mL 33 finding Peptide BNP Inr/Protime 12/31/2016 Inr 1.05 0.89-1.11 Laboratory test 12/31/2016 Creatine Kinase 107 U/L 10-223 finding C Reactive Protein 7.58 mg/L High < 5.00 34 Lactic Acid 2.1 mmol/L High 0.5-2.0 35 Comp Metabolic Panel 12/31/2016 Sodium 134 mmol/L 133-145 Potassium 3.0 mmol/L Low 3.5-5.0 Chloride 89 mmol/L Low 101-111 Co2 Carbon Dioxide 37 mmol/L High 22-32 Anion Gap 8 mmol/L 2-11 Glucose 137 mg/dL High 70-100 Blood Urea Nitrogen 8 mg/dL 6-24 Creatinine 1.04 mg/dL 0.67-1.17 BUN/Creatinine Ratio 7.7 Low 8-20 Calcium 9.3 mg/dL 8.6-10.3 Total Protein 7.1 g/dL 6.4-8.9 Albumin 4.1 g/dL 3.2-5.2 Globulin 3.0 g/dL 2-4 Albumin/Globulin Ratio 1.4 1-3 Total Bilirubin 0.70 mg/dL 0.2-1.0 Alkaline Phosphatase 59 U/L 34-104 Alt 84 U/L High 7-52 Ast 70 U/L High 13-39 Egfr Non- 70.8 >60 Egfr 91.1 >60 36 Laboratory test finding 12/31/2016 Troponin-I (TnI) 0.00 ng/mL <0.04 37 CBC Auto Diff 12/31/2016 White Blood Count 7.0 10^3/uL 3.5-10.8 Red Blood Count 4.54 10^6/uL 4.0-5.4 Hemoglobin 14.9 g/dL 14.0-18.0 Hematocrit 44 % 42-52 Mean Corpuscular Volume 97 fL High 80-94 Mean Corpuscular Hemoglobin 33 pg High 27-31 Mean Corpuscular HGB Conc 34 g/dL 31-36 Red Cell Distribution Width 14 % 10.5-15 Platelet Count 168 10^3/uL 150-450 Mean Platelet Volume 8 um3 7.4-10.4 Abs Neutrophils 5.0 10^3/uL 1.5-7.7 Abs Lymphocytes 1.4 10^3/uL 1.0-4.8 Abs Monocytes 0.6 10^3/uL 0-0.8 Abs Eosinophils 0 10^3/uL 0-0.6 Abs Basophils 0 10^3/uL 0-0.2 Abs Nucleated RBC 0.01 10^3/uL Granulocyte % 70.7 % 38-83 Lymphocyte % 20.0 % Low 25-47 Monocyte % 8.5 % 1-9 Eosinophil % 0.4 % 0-6 Basophil % 0.4 % 0-2 Nucleated Red Blood Cells % 0.1 Urinalysis Profile 12/31/2016 Urine Color Straw Urine Appearance Clear Urine Specific [place] 1.005 Low 1.010-1.030 Urine pH 8.0 5-9 Urine Urobilinogen Negative Negative Urine Ketones Negative Negative Urine Protein Negative Negative Urine Leukocytes Negative Negative Urine Blood Negative Negative Urine Nitrite Negative Negative Urine Bilirubin Negative Negative Urine Glucose Negative Negative Laboratory test finding 11/11/2016 B-Type Natriuretic Peptide BNP 52 pg/mL 38 Lactic Acid 1.5 mmol/L 0.5-2.0 39 Blood Culture SEE RESULT BELOW 40 CKMB 11/11/2016 CKMB ng/mL 2.5 ng/mL 0.6-6.3 Laboratory test finding 11/11/2016 C Reactive Protein 60.25 mg/L High &lt ; 5.00 41 Troponin-I (TnI) 0.01 ng/mL <0.04 42 Comp Metabolic Panel 11/11/2016 Sodium 135 mmol/L 133-145 Potassium 3.7 mmol/L 3.5-5.0 Chloride 92 mmol/L Low 101-111 Co2 Carbon Dioxide 36 mmol/L High 22-32 Anion Gap 7 mmol/L 2-11 Glucose 134 mg/dL High 70-100 Blood Urea Nitrogen 16 mg/dL 6-24 Creatinine 1.20 mg/dL High 0.67-1.17 BUN/Creatinine Ratio 13.3 8-20 Calcium 9.9 mg/dL 8.6-10.3 Total Protein 8.0 g/dL 6.4-8.9 Albumin 4.8 g/dL 3.2-5.2 Globulin 3.2 g/dL 2-4 Albumin/Globulin Ratio 1.5 1-3 Total Bilirubin 1.00 mg/dL 0.2-1.0 Alkaline Phosphatase 76 U/L 34-104 Alt 61 U/L High 7-52 Ast 26 U/L 13-39 Egfr Non- 60.0 >60 Egfr 77.2 >60 43 CBC Auto Diff 11/11/2016 White Blood Count 12.4 10^3/uL High 3.5-10.8 Red Blood Count 5.30 10^6/uL 4.0-5.4 Hemoglobin 17.7 g/dL 14.0-18.0 Hematocrit 53 % High 42-52 Mean Corpuscular Volume 99 fL High 80-94 Mean Corpuscular Hemoglobin 34 pg High 27-31 Mean Corpuscular HGB Conc 34 g/dL 31-36 Red Cell Distribution Width 14 % 10.5-15 Platelet Count 139 10^3/uL Low 150-450 Mean Platelet Volume 9 um3 7.4-10.4 Abs Neutrophils 10.5 10^3/uL High 1.5-7.7 Abs Lymphocytes 1.0 10^3/uL 1.0-4.8 Abs Monocytes 0.9 10^3/uL High 0-0.8 Abs Eosinophils 0 10^3/uL 0-0.6 Abs Basophils 0 10^3/uL 0-0.2 Abs Nucleated RBC 0 10^3/uL Granulocyte % 84.3 % High 38-83 Lymphocyte % 8.2 % Low 25-47 Monocyte % 7.1 % 1-9 Eosinophil % 0.1 % 0-6 Basophil % 0.3 % 0-2 Nucleated Red Blood Cells % 0 Rapid Influenza A & B 11/11/2016 Influenza A Molecular NEGATIVE Negative 44 Molecular Influenza B Molecular NEGATIVE Negative Laboratory test finding 11/11/2016 Rapid Influenza A & B SEE RESULT BELOW 45 Antigen Urinalysis Profile 11/11/2016 Urine Color Yellow Urine Appearance Clear Urine Specific [place] 1.016 1.010-1.030 Urine pH 7.0 5-9 Urine Urobilinogen Negative Negative Urine Ketones Negative Negative Urine Protein Negative Negative Urine Leukocytes Negative Negative Urine Blood Negative Negative Urine Nitrite Negative Negative Urine Bilirubin Negative Negative Urine Glucose Negative Negative Arterial Blood Gas 11/11/2016 PH Arterial 7.46 High 7.35-7.45 Pco2 Arterial 47 mmHg High 35-45 Po2 Arterial 34 mmHg Low 80-100 46 O2 Saturation Arterial 71.2 % Low 95-98 Base Excess Arterial 8.0 High -2.0-2.0 47 Hco3 Arterial 30.1 mmol/L 19-31 CBC Auto Diff 01/16/2016 White Blood Count 6.9 10^3/uL 3.5-10.8 Red Blood Count 5.16 10^6/uL 4.0-5.4 Hemoglobin 17.3 g/dL 14.0-18.0 Hematocrit 51 % 42-52 Mean Corpuscular Volume 98 fL High 80-94 Mean Corpuscular Hemoglobin 34 pg High 27-31 Mean Corpuscular HGB Conc 34 g/dL 31-36 Red Cell Distribution Width 14 % 10.5-15 Platelet Count 152 10^3/uL 150-450 Mean Platelet Volume 9 um3 7.4-10.4 Abs Neutrophils 5.3 10^3/uL 1.5-7.7 Abs Lymphocytes 0.9 10^3/uL Low 1.0-4.8 Abs Monocytes 0.6 10^3/uL 0-0.8 Abs Eosinophils 0 10^3/uL 0-0.6 Abs Basophils 0.1 10^3/uL 0-0.2 Abs Nucleated RBC 0 10^3/uL Granulocyte % 76.7 % 38-83 Lymphocyte % 13.7 % Low 25-47 Monocyte % 8.3 % 1-9 Eosinophil % 0.4 % 0-6 Basophil % 0.9 % 0-2 Nucleated Red Blood Cells % 0 Comp Metabolic Panel 01/16/2016 Sodium 137 mmol/L 133-145 Potassium 3.8 mmol/L 3.5-5.0 Chloride 91 mmol/L Low 101-111 Co2 Carbon Dioxide 38 mmol/L High 22-32 Anion Gap 8 mmol/L 2-11 Glucose 125 mg/dL High 70-100 Blood Urea Nitrogen 13 mg/dL 6-24 Creatinine 1.09 mg/dL 0.67-1.17 BUN/Creatinine Ratio 11.9 8-20 Calcium 9.8 mg/dL 8.6-10.3 Total Protein 7.1 g/dL 6.4-8.9 Albumin 4.8 g/dL 3.2-5.2 Globulin 2.3 g/dL 2-4 Albumin/Globulin Ratio 2.1 1-3 Total Bilirubin 0.60 mg/dL 0.2-1.0 Alkaline Phosphatase 76 U/L 34-104 Alt 64 U/L High 7-52 Ast 34 U/L 13-39 Egfr Non- 67.3 >60 Egfr 86.5 >60 48 Inr/Protime 01/16/2016 Inr 1.04 0.89-1.11 Laboratory test 07/19/2015 Hemoglobin A1c (Glyco 6.0 % Less than 6.0 49 finding HGB) Lipid Profile 07/19/2015 Triglycerides 233 mg/dL 50 (Trig/Chol/HDL) Cholesterol 239 mg/dL 51 HDL Cholesterol 69.2 mg/dL 52 LDL Cholesterol 123 mg/dL 53 Laboratory test finding 06/16/2015 Troponin I 0.01 ng/mL <0.03 54 Comp Metabolic Panel 06/15/2015 Sodium 136 mmol/L 133-145 Potassium 3.0 mmol/L Low 3.5-5.0 Chloride 99 mmol/L Low 101-111 Co2 Carbon Dioxide 29 mmol/L 22-32 Anion Gap 8 mmol/L 2-11 Glucose 128 mg/dL High 70-100 Blood Urea Nitrogen 12 mg/dL 6-24 Creatinine 1.14 mg/dL 0.67-1.17 BUN/Creatinine Ratio 10.5 8-20 Calcium 8.4 mg/dL Low 8.6-10.3 Total Protein 6.1 g/dL Low 6.4-8.9 Albumin 3.9 g/dL 3.2-5.2 Globulin 2.2 g/dL 2-4 Albumin/Globulin Ratio 1.8 1-3 Total Bilirubin 0.80 mg/dL 0.2-1.0 Alkaline Phosphatase 48 U/L 34-104 Alt 40 U/L 7-52 Ast 36 U/L 13-39 Egfr Non- 64.1 >60 Egfr 82.4 >60 55 CBC Auto Diff 06/15/2015 White Blood Count 5.5 10^3/uL 4.8-10.8 Red Blood Count 3.76 10^6/uL Low 4.0-5.4 Hemoglobin 12.8 g/dL Low 14.0-18.0 Hematocrit 38 % Low 42-52 Mean Corpuscular Volume 102 fL High 80-94 Mean Corpuscular Hemoglobin 34 pg High 27-31 Mean Corpuscular HGB Conc 34 g/dL 31-36 Red Cell Distribution Width 14 % 10.5-15 Platelet Count 119 10^3/uL Low 150-450 Mean Platelet Volume 9 um3 7.4-10.4 Abs Neutrophils 5.2 10^3/uL 1.5-7.7 Abs Lymphocytes 0.3 10^3/uL Low 1.0-4.8 Abs Monocytes 0 10^3/uL 0-0.8 Abs Eosinophils 0 10^3/uL 0-0.6 Abs Basophils 0 10^3/uL 0-0.2 Abs Nucleated RBC 0 10^3/uL Granulocyte % 93.9 % High 38-83 Lymphocyte % 5.3 % Low 25-47 Monocyte % 0.6 % Low 1-9 Eosinophil % 0 % 0-6 Basophil % 0.2 % 0-2 Nucleated Red Blood Cells % 0 Laboratory test 06/15/2015 Troponin I 0.01 ng/mL <0.03 56 finding Laboratory test 05/17/2015 Urine Culture And SEE RESULT BELOW 57 finding Sensitivities Laboratory test 05/12/2015 Partial Thrombo Time 33.9 seconds 26.0-36.3 finding PTT Inr/Protime 05/12/2015 Inr 0.97 0.78-1.07 CBC Auto Diff 05/12/2015 White Blood Count 6.2 10^3/uL 4.8-10.8 Red Blood Count 4.76 10^6/uL 4.0-5.4 Hemoglobin 15.7 g/dL 14.0-18.0 Hematocrit 48 % 42-52 Mean Corpuscular Volume 100 fL High 80-94 Mean Corpuscular Hemoglobin 33 pg High 27-31 Mean Corpuscular HGB Conc 33 g/dL 31-36 Red Cell Distribution Width 14 % 10.5-15 Platelet Count 146 10^3/uL Low 150-450 Mean Platelet Volume 9 um3 7.4-10.4 Abs Neutrophils 4.4 10^3/uL 1.5-7.7 Abs Lymphocytes 1.2 10^3/uL 1.0-4.8 Abs Monocytes 0.5 10^3/uL 0-0.8 Abs Eosinophils 0.1 10^3/uL 0-0.6 Abs Basophils 0 10^3/uL 0-0.2 Abs Nucleated RBC 0.01 10^3/uL Granulocyte % 70.9 % 38-83 Lymphocyte % 18.8 % Low 25-47 Monocyte % 8.8 % 1-9 Eosinophil % 0.8 % 0-6 Basophil % 0.7 % 0-2 Nucleated Red Blood Cells % 0.1 Comp Metabolic Panel 05/12/2015 Sodium 140 mmol/L 133-145 Potassium 3.7 mmol/L 3.5-5.0 Chloride 99 mmol/L Low 101-111 Co2 Carbon Dioxide 33 mmol/L High 22-32 Anion Gap 8 mmol/L 2-11 Glucose 120 mg/dL High 70-100 Blood Urea Nitrogen 22 mg/dL 6-24 Creatinine 1.07 mg/dL 0.67-1.17 BUN/Creatinine Ratio 20.6 High 8-20 Calcium 9.4 mg/dL 8.6-10.3 Total Protein 6.6 g/dL 6.4-8.9 Albumin 4.5 g/dL 3.2-5.2 Globulin 2.1 g/dL 2-4 Albumin/Globulin Ratio 2.1 1-3 Total Bilirubin 0.60 mg/dL 0.2-1.0 Alkaline Phosphatase 65 U/L 34-104 Alt 63 U/L High 7-52 Ast 40 U/L High 13-39 Egfr Non- 68.9 >60 Egfr 88.7 >60 58 Urine DIP 05/12/2015 Specific [place] 1.015 1.01-1.02 Urine pH 7 High 5-6 Leukocytes + Neg Urine Nitrites NEG Neg Total Protein, Urine TRACE Neg Urine Glucose NORM Norm Urine Ketones NEG Neg Urobilinogen NORM Norm Urine Bilirubin NEG Neg Urine Blood about 250Ery/uL Neg Laboratory test 03/11/2015 Urine Culture And SEE RESULT BELOW 59 finding Sensitivities Urine DIP 03/11/2015 Specific [place] 1.010 1.01-1.02 Urine pH 6 5-6 Leukocytes trace Neg Urine Nitrites neg Neg Total Protein, Urine neg Neg Urine Glucose norm Norm Urine Ketones neg Neg Urobilinogen norm Norm Urine Bilirubin neg Neg Urine Blood 50 High Neg Urine DIP 07/15/2014 Specific [place] 1.005 Low 1.01-1.02 Urine pH 8 High 5-6 Leukocytes TRACE Neg Urine Nitrites NEG Neg Total Protein, Urine TRACE Neg Urine Glucose NORM Norm Urine Ketones NEG Neg Urobilinogen NORM Norm Urine Bilirubin NEG Neg Urine Blood 250 High Neg Laboratory test finding 07/15/2014 TSH (Thyroid Stimulating 2.61 IU/mL 0.34-5.60 Horm) Hemoglobin A1c 6.7 % High Less than 6.0 60 Comp Metabolic Panel 07/15/2014 Sodium 141 mmol/L 133-145 Potassium 3.6 mmol/L 3.5-5.0 61 Chloride 94 mmol/L Low 101-111 Co2 Carbon Dioxide 37 mmol/L High 22-32 Anion Gap 10 mmol/L 2-11 Glucose 100 mg/dL 70-100 Blood Urea Nitrogen 14 mg/dL 6-24 Creatinine 0.98 mg/dL 0.67-1.17 BUN/Creatinine Ratio 14.3 8-20 Calcium 9.9 mg/dL 8.6-10.3 Total Protein 6.8 g/dL 6.4-8.9 Albumin 4.7 g/dL 3.2-5.2 Globulin 2.1 g/dL 2-4 Albumin/Globulin Ratio 2.2 1-3 Total Bilirubin 0.60 mg/dL 0.2-1.0 Alkaline Phosphatase 72 U/L 34-104 Alt 93 U/L High 7-52 Ast 57 U/L High 13-39 Egfr Non- 76.5 >60 Egfr 98.4 >60 62 CBC No Diff 07/15/2014 White Blood Count 8.3 10^3/uL 4.8-10.8 Red Blood Count 5.21 10^6/uL 4.0-5.4 Hemoglobin 17.3 g/dL 14.0-18.0 Hematocrit 53 % High 42-52 Mean Corpuscular Volume 101 fL High 80-94 Mean Corpuscular Hemoglobin 33 pg High 27-31 Mean Corpuscular HGB Conc 33 g/dL 31-36 Red Cell Distribution Width 14 % 10.5-15 Platelet Count 163 10^3/uL 150-450 Mean Platelet Volume 9 um3 7.4-10.4 Lipid Profile (Trig/Chol/HDL) 07/15/2014 Triglycerides 234 mg/dL 63 Cholesterol 210 mg/dL 64 HDL Cholesterol 55.4 mg/dL 65 LDL Cholesterol 108 mg/dL 66 Laboratory test finding 01/11/2014 TSH (Thyroid Stimulating 1.30 IU/mL 0.34-5.60 Horm) Hemoglobin A1c 6.2 % High Less than 6.0 67 Lipid Profile (Trig/Chol/HDL) 01/11/2014 Triglycerides 218 mg/dL 68 Cholesterol 197 mg/dL 69 HDL Cholesterol 50.8 mg/dL 70 LDL Cholesterol 103 mg/dL 71 Comp Metabolic Panel 01/11/2014 Sodium 140 mmol/L 133-145 Potassium 3.4 mmol/L Low 3.7-5.6 Chloride 98 mmol/L Low 101-111 Co2 Carbon Dioxide 34 mmol/L High 22-32 Anion Gap 8 mmol/L 2-11 Glucose 139 mg/dL High 70-100 Blood Urea Nitrogen 23 mg/dL 6-24 Creatinine 1.10 mg/dL 0.67-1.17 BUN/Creatinine Ratio 20.9 High 8-20 Calcium 9.3 mg/dL 8.6-10.3 Total Protein 6.7 g/dL 6.4-8.9 Albumin 4.4 g/dL 3.2-5.2 Globulin 2.3 g/dL 2-4 Albumin/Globulin Ratio 1.9 1-3 Total Bilirubin 0.60 mg/dL 0.2-1.0 Alkaline Phosphatase 66 U/L 34-104 Alt 82 U/L High 7-52 Ast 44 U/L High 13-39 Egfr Non- 67.0 >60 Egfr 86.1 >60 72 CBC Auto Diff 01/11/2014 White Blood Count 6.0 10^3/uL 4.8-10.8 Red Blood Count 4.69 10^6/uL 4.0-5.4 Hemoglobin 16.1 g/dL 14.0-18.0 Hematocrit 46 % 42-52 Mean Corpuscular Volume 98 fL High 80-94 Mean Corpuscular Hemoglobin 34 pg High 27-31 Mean Corpuscular HGB Conc 35 g/dL 31-36 Red Cell Distribution Width 13 % 10.5-15 Platelet Count 140 10^3/uL Low 150-450 Mean Platelet Volume 9 um3 7.4-10.4 Abs Neutrophils 4.2 10^3/uL 1.5-7.7 Abs Lymphocytes 1.1 10^3/uL 1.0-4.8 Abs Monocytes 0.5 10^3/uL 0-0.8 Abs Eosinophils 0.1 10^3/uL 0-0.6 Abs Basophils 0 10^3/uL 0-0.2 Abs Nucleated RBC 0.01 10^3/uL Granulocyte % 70.0 % 38-83 Lymphocyte % 18.4 % Low 25-47 Monocyte % 9.0 % 1-9 Eosinophil % 2.1 % 0-6 Basophil % 0.5 % 0-2 Nucleated Red Blood Cells % 0.2 Surgical Pathology 11/23/2013 S RUN DATE: <SEE NOTE> CBC No Diff 07/13/2013 White Blood Count 5.9 10^3/uL 4.8-10.8 Red Blood Count 4.90 10^6/uL 4.0-5.4 Hemoglobin 16.3 g/dL 14.0-18.0 Hematocrit 50 % 42-52 Mean Corpuscular Volume 101 fL High 80-94 Mean Corpuscular Hemoglobin 33 pg High 27-31 Mean Corpuscular HGB Conc 33 g/dL 31-36 Red Cell Distribution Width 14 % 10.5-15 Platelet Count 153 10^3/uL 150-450 Mean Platelet Volume 9 um3 7.4-10.4 Comp Metabolic Panel 07/13/2013 Sodium 135 mmol/L 133-145 Potassium 3.8 mmol/L 3.5-5.0 Chloride 92 mmol/L Low 101-111 Co2 Carbon Dioxide 33.0 mmol/L High 22-32 Anion Gap 10.0 mmol/L 2-11 Glucose 111 mg/dL High 70-100 Blood Urea Nitrogen 13 mg/dL 6-24 Creatinine 1.00 mg/dL 0.50-1.40 BUN/Creatinine Ratio 13.0 8-20 Calcium 9.2 mg/dL 8.1-9.9 Total Protein 6.8 g/dL 6.2-8.1 Albumin 4.5 g/dL 3.2-5.2 Globulin 2.3 g/dL 2-4 Albumin/Globulin Ratio 2.0 1-3 Total Bilirubin 1.1 mg/dL 0.4-1.5 Alkaline Phosphatase 68 U/L 30-110 Alt 159 U/L High 14-54 Ast 94 U/L High 12-42 Egfr Non- 75.0 >60 Egfr 96.4 >60 74 Lipid Profile (Trig/Chol/HDL) 07/13/2013 Triglycerides 147 mg/dL 40-200 Cholesterol 226 mg/dL High Less than 200 HDL Cholesterol 67 mg/dL High 40-60 75 Cholesterol/HDL Ratio 3.4 Average 1-4.44 LDL Cholesterol 129.6 High Less Than 100 76 Laboratory test finding 07/13/2013 TSH (Thyroid Stimulating 2.72 miu/mL 0.34-5.60 Horm) PSA Screening 1.384 ng/mL 0-4.000 77 Hemoglobin A1c 6.0 % Less than 6.0 78 Urine DIP 07/13/2013 Leukocytes NEG Neg Urine Nitrites NEG Neg Urine pH 8 High 5-6 Total Protein, Urine NEG Neg Urine Glucose NORM Norm Urine Ketones NEG Neg Urobilinogen NORM Norm Urine Bilirubin NEG Neg Urine Blood NEG Neg Specific [place] N/A Low 1.01-1.02 Urinalysis 11/26/2012 Urine Color Yellow Urine Appearance Clear Urine Specific [place] 1.021 1.010-1.030 Urine Esterase Negative Negative Urine Nitrate Negative Negative Urine Urobilinogen Negative E.U./dL Negative Urine Protein Negative mg/dL Negative Urine pH 7.0 5-9 Urine Blood Negative Negative Urine Ketones Negative mg/dL Negative Urine Bilirubin Negative Negative Urine Glucose Negative mg/dL Negative CBC Auto Diff 11/26/2012 White Blood Count 13.9 10^3/uL High 4.8-10.8 Red Blood Count 4.77 10^6/uL 4.0-5.4 Hemoglobin 16.2 g/dL 14.0-18.0 Hematocrit 48 % 42-52 Mean Corpuscular Volume 101 fL High 80-94 Mean Corpuscular Hemoglobin 34 pg High 27-31 Mean Corpuscular HGB Conc 34 g/dL 31-36 Red Cell Distribution Width 13 % 10.5-15 Platelet Count 239 10^3/uL 150-450 Mean Platelet Volume 8 um3 7.4-10.4 Abs Neutrophils 10.1 10^3/uL High 1.5-7.7 Abs Lymphocytes 2.6 10^3/uL 1.0-4.8 Abs Monocytes 1.0 10^3/uL High 0-0.8 Abs Eosinophils 0 10^3/uL 0-0.6 Abs Basophils 0.1 10^3/uL 0-0.2 Abs Nucleated RBC 0 10^3/uL Granulocyte % 73.0 % 38-83 Lymphocyte % 18.5 % Low 25-47 Monocyte % 7.5 % 1-9 Eosinophil % 0.3 % 0-6 Basophil % 0.7 % 0-2 Nucleated Red Blood Cells % 0 Comp Metabolic Panel 11/26/2012 Sodium 140 mmol/L 133-145 Potassium 3.0 mmol/L Low 3.5-5.0 Chloride 93 mmol/L Low 101-111 Co2 Carbon Dioxide 33.0 mmol/L High 22-32 Anion Gap 14.0 mmol/L High 2-11 Glucose 136 mg/dL High 70-100 Blood Urea Nitrogen 21 mg/dL 6-24 Creatinine 1.20 mg/dL 0.50-1.40 BUN/Creatinine Ratio 17.5 8-20 Calcium 9.4 mg/dL 8.1-9.9 Total Protein 7.4 g/dL 6.2-8.1 Albumin 4.2 g/dL 3.2-5.2 Globulin 3.2 g/dL 2-4 Albumin/Globulin Ratio 1.3 1-3 Total Bilirubin 0.4 mg/dL 0.4-1.5 Alkaline Phosphatase 71 U/L 30-110 Alt 69 U/L High 14-54 Ast 34 U/L 12-42 Egfr Non- 60.8 >60 Egfr 78.1 >60 79 Laboratory test finding 11/26/2012 Magnesium 2.2 mg/dL 1.7-2.6 Troponin I 0 ng/mL 0-0.06 80 TSH (Thyroid Stimulating Horm) 1.90 miu/mL 0.34-5.60 Comp Metabolic Panel 05/12/2012 Sodium 138 mmol/L 135-145 Potassium 4.0 mmol/L 3.5-5.0 Chloride 95 mmol/L Low 101-111 Co2 (Carbon Dioxide) 34.0 mmol/L High 22-32 Anion Gap 9.0 mmol/L 2-11 81 Glucose 113 mg/dL High 70-100 BUN 13 mg/dL 6-24 Creatinine 1.0 mg/dL 0.50-1.40 One Over Creatinine 1.00 BUN/Creatinine Ratio 13.0 8-20 Calcium 9.2 mg/dL 8.1-9.9 Total Protein 6.3 GM/DL 6.2-8.1 Albumin 4.2 GM/DL 3.2-5.2 Globulin 2.1 GM/DL 2-4 Albumin/Globulin Ratio 2.0 1-3 Bilirubin Total 1.0 mg/dL 0.4-1.5 82 Alkaline Phosphatase 76 U/L 39-117 Alt (SGPT) 69 U/L High 17-63 Ast (Sgot) 38 U/L 12-42 eGFR Non- 75.2 > 60 eGFR 96.7 > 60 83 Laboratory test finding 05/12/2012 PTT (Aptt) 28.3 SEC 25.1-38.5 PT W/Inr 05/12/2012 Inr 0.89 0.88-1.13 84 Protime 10.6 SEC 10.3-13.5 85 CBC Auto Diff 05/12/2012 White Blood Count 5.8 CUMM 4.8-10.8 Red Cell Count 4.89 CUMM 4.6-6.2 Hemoglobin 16.9 g/dL 14.0-18.0 Hematocrit 49 % 42-52 Mean Corpuscular Volume 99 um3 High 80-94 Mean Corpuscular Hemoglob 35 pg High 27-31 Mean Corpuscular HGB Cone 35 g/dL 32-36 Redcell Distribution WDTH 14 % 10.5-15 Platelet Count 151 CUMM 150-450 Mean Platelet Volume 9.2 um3 7.4-10.4 Gran % 67.2 % 38-83 Lymph % 21.5 % 20-45 Mononuclear % 9.7 % High 1-9 Eosinophil % 1.0 % 0-6 Basophil % 0.6 % 0-2 Abs Lymphs 1.3 1.0-4.8 Abs Mononuclear 0.6 0-0.8 Absolute Neutrophil Count 3.9 1.5-7.7 Abs Eosinophils 0.1 0-0.6 Abs Basophils 0 0-0.2 Urine Culture & 05/10/2012 M <SEE 86 Sensitivi NOTE> Urine DIP 03/14/2012 Leukocytes NEG Neg Urine Nitrites NEG Neg Urine pH 7 High 5-6 Total Protein, Urine NEG Neg Urine Glucose NORM Norm Urine Ketones NEG Neg Urobilinogen NORM Norm Urine Bilirubin NEG Neg Urine Blood NEG Neg Specific [place] NA Low 1.01-1.02 Laboratory test finding 03/14/2012 Hemoglobin A1c 6.3 % High Less Than 6.0 87 CBC Auto Diff 03/14/2012 White Blood Count 7.0 CUMM 4.8-10.8 Red Cell Count 4.59 CUMM Low 4.6-6.2 Hemoglobin 15.7 g/dL 14.0-18.0 Hematocrit 46 % 42-52 Mean Corpuscular Volume 100 um3 High 80-94 Mean Corpuscular Hemoglob 34 pg High 27-31 Mean Corpuscular HGB Cone 34 g/dL 32-36 Redcell Distribution WDTH 14 % 10.5-15 Platelet Count 160 CUMM 150-450 Mean Platelet Volume 9.4 um3 7.4-10.4 Gran % 71.7 % 38-83 Lymph % 18.2 % Low 20-45 Mononuclear % 8.8 % 1-9 Eosinophil % 0.9 % 0-6 Basophil % 0.4 % 0-2 Abs Lymphs 1.3 1.0-4.8 Abs Mononuclear 0.6 0-0.8 Absolute Neutrophil Count 5.0 1.5-7.7 Abs Eosinophils 0.1 0-0.6 Abs Basophils 0 0-0.2 Comments 1 88 Comp Metabolic Panel 03/14/2012 Sodium 139 mmol/L 135-145 Potassium 4.8 mmol/L 3.5-5.0 Chloride 97 mmol/L Low 101-111 Co2 (Carbon Dioxide) 32.0 mmol/L 22-32 Anion Gap 10.0 mmol/L 2-11 89 Glucose 112 mg/dL High 70-100 BUN 19 mg/dL 6-24 Creatinine 0.9 mg/dL 0.50-1.40 One Over Creatinine 1.11 BUN/Creatinine Ratio 21.1 High 8-20 Calcium 9.5 mg/dL 8.1-9.9 Total Protein 7.1 GM/DL 6.2-8.1 Albumin 4.4 GM/DL 3.2-5.2 Globulin 2.7 GM/DL 2-4 Albumin/Globulin Ratio 1.6 1-3 Bilirubin Total 0.6 mg/dL 0.4-1.5 90 Alkaline Phosphatase 73 U/L 39-117 Alt (SGPT) 62 U/L 17-63 Ast (Sgot) 34 U/L 12-42 eGFR Non- 85.0 > 60 eGFR 109.3 > 60 91 Lipid Profile (Trig/Chol/HDL) 03/14/2012 Triglyceride 203 mg/dL High 40- 200 Cholesterol 216 mg/dL High Less Than 200 92 High Density Lipoprotein 64 mg/dL High 40-60 93 Cholesterol/HDL Ratio 3.38 AVERAGE 1-4.97 Low Density Lipoprotein 111 mg/dL High Less Than 100 94 Laboratory test finding 03/14/2012 TSH 1.43 MIU/ML 0.34-5.60 PSA 1.26 NG/ML 0-4 95 Urine DIP 03/14/2012 Leukocytes NEG Neg Urine Nitrites NEG Neg Urine pH 5 5-6 Total Protein, Urine NEG Neg Urine Glucose NORM Norm Urine Ketones NEG Neg Urobilinogen NORM Norm Urine Bilirubin NEG Neg Urine Blood NEG Neg Specific [place] NA Low 1.01-1.02 Laboratory test finding 09/14/2011 Hemoglobin A1c 6.1 % High Less Than 6.0 96 Lipid Profile 09/07/2011 Triglyceride 152 mg/dL 40-200 97 (Trig/Chol/HDL) Cholesterol 203 mg/dL High Less Than 200 97, 98 High Density Lipoprotein 58 mg/dL 40-60 97, 99 Cholesterol/HDL Ratio 3.50 AVERAGE 1-4.97 97 Low Density Lipoprotein 115 mg/dL High Less Than 100 97, 100 CBC Auto Diff 09/07/2011 White Blood Count 6.5 CUMM 4.8-10.8 97 Red Cell Count 4.78 CUMM 4.6-6.2 97 Hemoglobin 15.9 g/dL 14.0-18.0 97 Hematocrit 47 % 42-52 97 Mean Corpuscular Volume 99 um3 High 80-94 97 Mean Corpuscular Hemoglob 33 pg High 27-31 97 Mean Corpuscular HGB Cone 34 g/dL 32-36 97 Redcell Distribution WDTH 14 % 10.5-15 97 Platelet Count 166 CUMM 150-450 97 Mean Platelet Volume 8.9 um3 7.4-10.4 97 Gran % 67.7 % 38-83 97 Lymph % 21.2 % Low 25-47 97 Mononuclear % 9.6 % High 1-9 97 Eosinophil % 1.2 % 0-6 97 Basophil % 0.3 % 0-2 97 Abs Lymphs 1.4 1.0-4.8 97 Abs Mononuclear 0.6 0-0.8 97 Absolute Neutrophil Count 4.4 1.5-7.7 97 Abs Eosinophils 0.1 0-0.6 97 Abs Basophils 0 0-0.2 97 Comp Metabolic Panel 09/07/2011 Sodium 138 mmol/L 135-145 97 Potassium 4.3 mmol/L 3.5-5.0 97 Chloride 94 mmol/L Low 101-111 97 Co2 (Carbon Dioxide) 33.0 mmol/L High 22-32 97 Anion Gap 11.0 mmol/L 2-11 97, 101 Glucose 111 mg/dL High 70-100 97 BUN 18 mg/dL 6-24 97 Creatinine 1.2 mg/dL 0.50-1.40 97 One Over Creatinine 0.83 97 BUN/Creatinine Ratio 15.0 8-20 97 Calcium 9.2 mg/dL 8.1-9.9 97 Total Protein 6.5 GM/DL 6.2-8.1 97 Albumin 4.4 GM/DL 3.2-5.2 97 Globulin 2.1 GM/DL 2-4 97 Albumin/Globulin Ratio 2.1 1-3 97 Bilirubin Total 0.8 mg/dL 0.4-1.5 97, 102 Alkaline Phosphatase 70 U/L 39-117 97 Alt (SGPT) 44 U/L 17-63 97 Ast (Sgot) 27 U/L 12-42 97 eGFR Non- 61.0 > 60 97 eGFR 78.4 > 60 97, 103 Laboratory test finding 09/07/2011 TSH 2.99 MIU/ML 0.34-5.60 97 Urine DIP 03/01/2011 Leukocytes NEG Neg Urine Nitrites NEG Neg Urine pH 6 5-6 Total Protein, Urine NEG Neg Urine Glucose NORM Norm Urine Ketones NEG Neg Urobilinogen NORM Norm Urine Bilirubin NEG Neg Urine Blood TRACE Neg Specific [place] NA Low 1.01-1.02 Laboratory test finding 03/01/2011 Hemoglobin A1c 6.2 % High Less Than 6.0 104 PSA Screening 1.15 NG/ML 0-4 105 CBC With Electronic Diff 02/27/2011 White Blood Count 7.4 CUMM 4.8-10.8 Red Cell Count 4.59 CUMM Low 4.6-6.2 Hemoglobin 15.4 g/dL 14.0-18.0 Hematocrit 46 % 42-52 Mean Corpuscular Volume 99 um3 High 80-94 Mean Corpuscular Hemoglob 34 pg High 27-31 Mean Corpuscular HGB Cone 34 g/dL 32-36 Redcell Distribution WDTH 14 % 10.5-15 Platelet Count 191 CUMM 150-450 Mean Platelet Volume 9.6 um3 7.4-10.4 Gran % 68.5 % 38-83 Lymph % 21.6 % Low 25-47 Mononuclear % 8.0 % 1-9 Eosinophil % 1.5 % 0-6 Basophil % 0.4 % 0-2 Abs Lymphs 1.6 1.0-4.8 Abs Mononuclear 0.6 0-0.8 Absolute Neutrophil Count 5.1 1.5-7.7 Abs Eosinophils 0.1 0-0.6 Abs Basophils 0 0-0.2 Comp Metabolic Panel 02/27/2011 Sodium 139 mmol/L 135-145 Potassium 4.6 mmol/L 3.5-5.0 Chloride 98 mmol/L Low 101-111 Co2 (Carbon Dioxide) 32.0 mmol/L 22-32 Anion Gap 9.0 mmol/L 2-11 106 Glucose 114 mg/dL High 70-100 BUN 17 mg/dL 6-24 Creatinine 1.10 mg/dL 0.50-1.40 One Over Creatinine 0.90 BUN/Creatinine Ratio 15.5 8-20 Calcium 9.2 mg/dL 8.1-9.9 Total Protein 6.3 GM/DL 6.2-8.1 Albumin 4.3 GM/DL 3.2-5.2 Globulin 2.0 GM/DL 2-4 Albumin/Globulin Ratio 2.2 1-3 Bilirubin Total 0.7 mg/dL 0.4-1.5 107 Alkaline Phosphatase 72 U/L 39-117 Alt (SGPT) 45 U/L 17-63 Ast (Sgot) 26 U/L 12-42 eGFR Non- 67.6 > 60 eGFR 86.9 > 60 108 Lipid Profile (Trig/Chol/HDL) 02/27/2011 Triglyceride 145 mg/dL 40-200 Cholesterol 190 mg/dL Less Than 200 109 High Density Lipoprotein 55 mg/dL 40-60 110 Cholesterol/HDL Ratio 3.45 AVERAGE 1-4.97 Low Density Lipoprotein 106 mg/dL High Less Than 100 111 Urine DIP 01/16/2010 Leukocytes NEG Neg Urine Nitrites NEG Neg Urine pH 5 5-6 Total Protein, Urine NEG Neg Urine Glucose NORM Norm Urine Ketones NEG Neg Urobilinogen NORM Norm Urine Bilirubin NEG Neg Urine Blood NEG Neg Specific [place] NA Low 1.01-1.02 CBC With Electronic Diff 01/09/2010 White Blood Count 5.8 CUMM 4.8-10.8 Red Cell Count 4.70 CUMM 4.6-6.2 Hemoglobin 15.9 g/dL 14.0-18.0 Hematocrit 46 % 42-52 Mean Corpuscular Volume 98 um3 High 80-94 Mean Corpuscular Hemoglob 34 pg High 27-31 Mean Corpuscular HGB Cone 35 g/dL 32-36 Redcell Distribution WDTH 14 % 10.5-15 Platelet Count 193 CUMM 150-450 Mean Platelet Volume 8.6 um3 7.4-10.4 Gran % 63.9 % 38-83 Lymph % 23.9 % Low 25-47 Mononuclear % 10.6 % High 1-9 Eosinophil % 1.3 % 0-6 Basophil % 0.3 % 0-2 Abs Lymphs 1.4 1.0-4.8 Abs Mononuclear 0.6 0-0.8 Absolute Neutrophil Count 3.7 1.5-7.7 Abs Eosinophils 0.1 0-0.6 Abs Basophils 0 0-0.2 Laboratory test finding 01/09/2010 TSH 2.88 MIU/ML 0.34-5.60 PSA Screening 1.03 NG/ML 0-4 112 Lipid Profile (Trig/Chol/HDL) 01/09/2010 Triglyceride 201 mg/dL High 40- 200 Cholesterol 185 mg/dL Less Than 200 113 High Density Lipoprotein 44 mg/dL 40-60 114 Cholesterol/HDL Ratio 4.20 AVERAGE 1-4.97 Low Density Lipoprotein 101 mg/dL High Less Than 100 115 Comp Metabolic Panel 01/09/2010 Sodium 134 mmol/L Low 135-145 Potassium 4.2 mmol/L 3.5-5.0 Chloride 92 mmol/L Low 101-111 Co2 (Carbon Dioxide) 30.0 mmol/L 22-32 Anion Gap 12.0 mmol/L High 2-11 116 Glucose 101 mg/dL High 70-100 117 BUN 13 mg/dL 6-24 Creatinine 1.10 mg/dL 0.50-1.40 One Over Creatinine 0.90 BUN/Creatinine Ratio 11.8 8-20 Calcium 9.1 mg/dL 8.1-9.9 118 Total Protein 6.5 GM/DL 6.2-8.1 Albumin 4.4 GM/DL 3.2-5.2 Globulin 2.1 GM/DL 2-4 Albumin/Globulin Ratio 2.1 1-3 Bilirubin Total 0.7 mg/dL 0.4-1.5 119 Alkaline Phosphatase 73 U/L 39-117 Alt (SGPT) 61 U/L 17-63 Ast (Sgot) 36 U/L 12-42 eGFR Non- 72.1 > 60 eGFR 87.2 > 60 120 Urine DIP 01/04/2009 Leukocytes NEG Neg Urine Nitrites NEG Neg Urine pH 7 High 5-6 Total Protein, Urine NEG Neg Urine Glucose NORM Norm Urine Ketones NEG Neg Urobilinogen NORM Norm Urine Bilirubin NEG Neg Urine Blood NEG Neg Specific [place] N/A Low 1.01-1.02 CBC With Manual Diff 12/30/2008 White Blood Count 7.4 CUMM 4.8-10.8 Red Cell Count 4.64 CUMM 4.6-6.2 Hemoglobin 15.2 g/dL 14.0-18.0 Hematocrit 45 % 42-52 Mean Corpuscular Volume 97 um3 High 80-94 Mean Corpuscular Hemoglob 33 pg High 27-31 Mean Corpuscular HGB Cone 34 g/dL 32-36 Redcell Distribution WDTH 14 % 10.5-15 Platelet Count 196 CUMM 150-450 Mean Platelet Volume 8.4 um3 7.4-10.4 Polysegmented Neutrophil 65 % 38-83 Band Neutrophil 1 % 0-8 Lymphocyte 17 % Low 25-47 Monocyte 15 % High 0-13 Eosenophil 1 % 0-6 Basophil 1 % 0-2 Absolute Neutrophil Count 4.8 RBC Morphology NORMAL Lipid Profile (Trig/Chol/HDL) 12/30/2008 Triglyceride 120 mg/dL 40-200 Cholesterol 177 mg/dL Less Than 200 121 High Density Lipoprotein 49 mg/dL 40-60 122 Cholesterol/HDL Ratio 3.61 AVERAGE 1-4.97 Low Density Lipoprotein 104 mg/dL High Less Than 100 123 Comp Metabolic Panel 12/30/2008 Sodium 140 mmol/L 135-145 Potassium 4.0 mmol/L 3.5-5.0 Chloride 95 mmol/L Low 101-111 Co2 (Carbon Dioxide) 36.0 mmol/L High 22-32 Anion Gap 9.0 mmol/L 2-11 124 Glucose 111 mg/dL High 70-100 125 BUN 12 mg/dL 6-24 Creatinine 1.10 mg/dL 0.50-1.40 One Over Creatinine 0.90 BUN/Creatinine Ratio 10.9 8-20 Calcium 9.3 mg/dL 8.1-9.9 126 Total Protein 6.6 GM/DL 6.2-8.1 Albumin 4.1 GM/DL 3.2-5.2 Globulin 2.5 GM/DL 2-4 Albumin/Globulin Ratio 1.6 1-3 Bilirubin Total 0.8 mg/dL 0.4-1.5 Alkaline Phosphatase 77 U/L 39-117 Alt (SGPT) 59 U/L 17-63 Ast (Sgot) 44 U/L High 12-42 Laboratory test finding 06/28/2008 PSA Screening 0.94 NG/ML 0-4 127 Laboratory test finding 01/22/2008 TSH 1.82 MIU/ML 0.34-5.60 Comp Metabolic Panel 01/22/2008 Sodium 136 mmol/L 135-145 Potassium 3.8 mmol/L 3.5-5.0 Chloride 95 mmol/L Low 101-111 Co2 (Carbon Dioxide) 31.0 mmol/L 22-32 Anion Gap 10.0 mmol/L 2-11 128 Glucose 95 mg/dL 70-105 BUN 19 mg/dL 6-24 Creatinine 1.0 mg/dL 0.5-1.4 One Over Creatinine 1.00 BUN/Creatinine Ratio 19.0 8-20 Calcium 9.1 mg/dL 8.7-10.2 Total Protein 6.8 GM/DL 6.2-8.1 Albumin 4.2 GM/DL 3.2-5.2 Globulin 2.6 GM/DL 2-4 Albumin/Globulin Ratio 1.6 1-3 Bilirubin Total 0.7 mg/dL 0.4-1.5 Alkaline Phosphatase 78 U/L 39-117 Alt (SGPT) 56 U/L 17-63 Ast (Sgot) 38 U/L 12-42 CBC With Electronic Diff 01/22/2008 White Blood Count 6.2 CUMM 4.8-10.8 Red Cell Count 4.87 CUMM 4.6-6.2 Hemoglobin 15.5 g/dL 14.0-18.0 Hematocrit 45 % 42-52 Mean Corpuscular Volume 93 um3 80-94 Mean Corpuscular Hemoglob 32 pg High 27-31 Mean Corpuscular HGB Cone 34 g/dL 32-36 Redcell Distribution WDTH 14 % 10.5-15 Platelet Count 186 CUMM 150-450 Mean Platelet Volume 9.1 um3 7.4-10.4 Gran % 67.8 % 38-83 Lymph % 22.5 % 20-45 Mononuclear % 8.4 % 1-9 Eosinophil % 1.0 % 0-6 Basophil % 0.3 % 0-2 Abs Lymphs 1.4 1.0-4.8 Abs Mononuclear 0.5 0-0.8 Absolute Neutrophil Count 4.2 1.5-7.7 Abs Eosinophils 0.1 0-0.6 Abs Basophils 0 0-0.2 Lipid Profile (Trig/Chol/HDL) 01/22/2008 Triglyceride 150 mg/dL 40-200 Cholesterol 192 mg/dL Less Than 200 129 High Density Lipoprotein 51 mg/dL 40-60 130 Cholesterol/HDL Ratio 3.76 AVERAGE 1-4.97 Low Density Lipoprotein 111 mg/dL High Less Than 100 131 Urine DIP 11/21/2007 Leukocytes NEG Neg Urine Nitrites NEG Neg Urine pH 5 5-6 Total Protein, Urine NEG Neg Urine Glucose NORM Norm Urine Ketones NEG Neg Urobilinogen NORM Norm Urine Bilirubin NEG Neg Urine Blood NEG Neg Specific [place] N/A Low 1.01-1.02 Laboratory test finding 11/14/2007 TSH 1.46 MIU/ML 0.34-5.60 Lipid Profile 11/14/2007 Cholesterol/HDL Ratio 4.55 AVERAGE 1-4.97 (Trig/Chol/HDL) Cholesterol 241 mg/dL High Less Than 200 132 Triglyceride 144 mg/dL 40-200 High Density Lipoprotein 53 mg/dL 40-60 Low Density Lipoprotein 159 mg/dL High Less Than 100 133 Comp Metabolic Panel 11/14/2007 One Over Creatinine 1.00 Anion Gap 6.0 mmol/L 2-11 134 Albumin/Globulin Ratio 2.0 1-3 Albumin 4.2 GM/DL 3.2-5.2 Alkaline Phosphatase 74 U/L 39-117 Alt (SGPT) 55 U/L 17-63 Ast (Sgot) 32 U/L 12-42 BUN 21 mg/dL 6-24 Calcium 9.2 mg/dL 8.7-10.2 Chloride 100 mmol/L Low 101-111 Co2 (Carbon Dioxide) 37.0 mmol/L High 22-32 Globulin 2.1 GM/DL 2-4 Glucose 105 mg/dL 70-105 Potassium 4.1 mmol/L 3.5-5.0 Sodium 143 mmol/L 135-145 Bilirubin Total 0.6 mg/dL 0.4-1.5 Total Protein 6.3 GM/DL 6.2-8.1 BUN/Creatinine Ratio 21.0 High 8-20 Creatinine 1.0 mg/dL 0.5-1.4 CBC With Electronic Diff 11/14/2007 White Blood Count 5.3 CUMM 4.8-10.8 Abs Basophils 0 0-0.2 Abs Eosinophils 0.1 0-0.6 Absolute Neutrophil Count 3.2 1.5-7.7 Abs Lymphs 1.4 1.0-4.8 Abs Mononuclear 0.6 0-0.8 Basophil % 0.2 % 0-2 Hematocrit 42 % 42-52 Hemoglobin 14.6 g/dL 14.0-18.0 Eosinophil % 2.3 % 0-6 Gran % 60.6 % 38-83 Lymph % 25.6 % 20-45 Mean Corpuscular HGB Cone 35 g/dL 32-36 Mean Corpuscular Hemoglob 33 pg High 27-31 Mean Corpuscular Volume 95 um3 High 80-94 Mean Platelet Volume 8.4 um3 7.4-10.4 Mononuclear % 11.3 % High 1-9 Platelet Count 192 CUMM 150-450 Red Cell Count 4.45 CUMM Low 4.6-6.2 Redcell Distribution WDTH 13 % 10.5-15 1 Community Relations Liaison: [id number] 2 SEE RESULT BELOW Name: LEONIDES TAYLOR : [address]: Atul Bermeo MD Acct: [id number] Unit: [id number] AGE: 72 Location: ED Re09/27/17 SEX: M Status: REG ER SPEC: [id number] LIN: 09/27/[address]: Atul Bermeo MD REQ: [id number] RECD: 09/27/17 STATUS: CANELO MILLS DR: Lluvia Stevens NP _ SOURCE: NASAL SPDESC: ORDERED: Flu A B Request Procedure Result Reported Site Rapid Influenza A B Request Final 09/27/172038 ML Specimen received for Influenza A/B Molecular testing * ML - [facility] ([facility]) . END OF REPORT * ML=Testing performed at Main Lab DEPARTMENT OF PATHOLOGY, [address] [place] [address] Ramin Cabrera M.D. Director [facility] # [id number] 3 Reference ranges based on room air. 4 Please note: The following may produce a false positive D Dimer test: - Rheumatoid factor greater than 60 IU/ml - Plasma hemoglobin greater than 0.05 gm/dl - Bilirubin greater than 50 mg/dl - Lipids greater than 1000 mg/dl - FDP greater than 20 ug/ml 5 Because ethnic data is not always readily available, this report includes an eGFR for both -Americans and non- Americans. The National Kidney Disease Education Program (NKDEP) does not endorse the use of the MDRD equation for patients that are not between the ages of 18 and 70, are , have extremes of body size, muscle mass, or nutritional status, or are non- or non-. According to the National Kidney Foundation, irrespective of diagnosis, the stage of the disease is based on the level of kidney function: Stage Description GFR(mL/min/1.73 m(2)) 1 Kidney damage with normal or decreased GFR 90 2 Kidney damage with mild decrease in GFR 60-89 3 Moderate decrease in GFR 30-59 4 Severe decrease in GFR 15-29 5 Kidney failure <15 (or dialysis) 6 >100 to <200 pg/mL: likely compensated congestive heart failure (CHF) 200 to 400 pg/mL: likely moderate CHF >400 pg/mL: likely moderate to severe CHF 7 [facility] Severe Sepsis and Septic Shock Management Bundle Measure requires all lactic acids initially measuring >2.0 mmol/L be repeated. 8 Interpretive information available on [facility] Test Catalog at [email or web address] 9 SEE RESULT BELOW Name: LEONIDES TAYLOR Gopi : [address]: Jem Rogers MD Acct: [id number] Unit: [id number] AGE: 72 Location: [place] [address]- Re09/28/17 SEX: M Status: ADM IN SPEC: [id number] LIN: 09/27/17 [facility] DR: Atul Bermeo MD REQ: [id number] RECD: 09/27/17 STATUS: RES JHONY DR: Lluvia Stevens [employer]PHOL[employer] _ SOURCE: BLOOD,VENO SPDESC: ORDERED: Blood Cult Procedure Result Reported Site Aerobic Culture Bottle Preliminary 09/28/171910 ML No Growth Day 1 Anaerobic Culture Bottle Preliminary 09/28/171910 ML No Growth Day 1 * ML - MAIN LAB ([facility]) . END OF REPORT * ML=Testing performed at Main Lab DEPARTMENT OF PATHOLOGY, [address] [place] [address] Ramin Cabrera M.D. Director [facility] # [id number] 10 Left Shift Imm Grans 11 Therapeutic target for the treatment of diabetes mellitus patients is <7% HBA1C, and in selective patients <6.0%. Please refer to [employer] Diabetes Association diabetic care guidelines for further information. 12 >100 to <200 pg/mL: likely compensated congestive heart failure (CHF) 200 to 400 pg/mL: likely moderate CHF >400 pg/mL: likely moderate to severe CHF 13 Acute inflammation: >10.00 14 Because ethnic data is not always readily available, this report includes an eGFR for both -Americans and non- Americans. The National Kidney Disease Education Program (NKDEP) does not endorse the use of the MDRD equation for patients that are not between the ages of 18 and 70, are , have extremes of body size, muscle mass, or nutritional status, or are non- or non-. According to the National Kidney Foundation, irrespective of diagnosis, the stage of the disease is based on the level of kidney function: Stage Description GFR(mL/min/1.73 m(2)) 1 Kidney damage with normal or decreased GFR 90 2 Kidney damage with mild decrease in GFR 60-89 3 Moderate decrease in GFR 30-59 4 Severe decrease in GFR 15-29 5 Kidney failure <15 (or dialysis) 15 [place] Severe Sepsis and Septic Shock Management Bundle Measure requires all lactic acids initially measuring >2.0 mmol/L be repeated. 16 SEE RESULT BELOW Name: LEONIDES TAYLOR Gopi : [address]: Marcelo Sampson MD Acct: [id number] Unit: [id number] AGE: 72 Location: ED Re09/08/17 SEX: M Status: REG ER SPEC: [id number] LIN: 09/08/17 [facility] DR: Jeromy Torrez NP REQ: [id number] RECD: 09/08/17 STATUS: CANELO BOOKER DR: Marcelo Stevens [employer] _ SOURCE: NASAL SPDESC: ORDERED: Flu A B Request Procedure Result Reported Site Rapid Influenza A B Request Final 09/08/17- 1816 ML Specimen received for Influenza A/B Molecular testing * ML - MAIN LAB ([facility]) . END OF REPORT * ML=Testing performed at Main Lab DEPARTMENT OF PATHOLOGY, [address] [place] [address] Ramin Cabrera M.D. Director [facility] # [id number] 17 SEE RESULT BELOW Name: LEONIDES TAYLOR : [address]: Fara Bingham DO Acct: [id number] Unit: [id number] AGE: 71 Location: [place] Re08/07/17 SEX: M Status: FAREHEN CHRISTINA SPEC: [id number] LIN: 08/07/17- SUBM DR: Fara Bingham DO REQ: [id number] RECD: 08/07/17 STATUS: TANG BOOKER DR: Lluvia Stevens [employer] _ ORDERED: LEVEL 4/5 FINAL DIAGNOSIS 1. Colon, cecum, biopsy: -- Tubular adenoma. -- No high grade dysplasia or malignancy. 2. Colon, ascending, biopsy: -- Tubular adenomas. -- No high grade dysplasia or malignancy. 3. Colon, transverse, biopsy: -- Tubular adenomas. -- No high-grade dysplasia or malignancy. 4. Colon, descending, biopsy: -- Hyperplastic polyp. 5. Colon, rectum, biopsy: -- Tubular adenoma. -- No high grade dysplasia or malignancy. CLINICAL HISTORY 71 year old male with history of tubular adenoma polyps in 2013 and family history of colon cancer with rectal bleeding POST-OPERATIVE DIAGNOSIS Poor prep; 4 mm sessile cecal polyp; 5 3-5 mm sessile ascending colon polyps , status post hot snare and jumbo; 3 3-4 mm sessile transverse colon polyps; 4 mm sessile descending colon polyp; 2 2-3 mm sessile rectal polyps; small non-bleeding internal hemorrhoids on retroflexion. Conclusions/Plan: Follow-up pathology; repeat 3-5 years based on pathology CONTINUED ON NEXT PAGE * ML=Testing performed at Main Lab DEPARTMENT OF PATHOLOGY, [address] [place] [address] Ramin Cabrera M.D. Director [facility] # [id number] RUN DATE: 08/09/17 [facility] LAB LIVE PAGE 2 Patient: LEONIDES TAYLOR [id number] (Continued) GROSS DESCRIPTION (Continued) GROSS DESCRIPTION 1. The specimen is received in formalin labeled, Biopsy Cecal Polyp, and consists of a 0.5 by up to 0.3 x 0.2 cm vazquez-pink polypoid soft tissue fragment which is inked and entirely submitted in one cassette. 2. The specimen is received in formalin labeled, Biopsy Ascending Colon Polyps, and consists of a 1.3 x 1.0 x 0.2 cm aggregate of vazquez irregular to polypoid soft tissue fragments which is submitted entirely in one cassette. 3. The specimen is received in formalin labeled, Biopsy Transverse Colon Polyps, and consists of a 0.9 x 0.5 x 0.2 cm aggregate of vazquez irregular to polypoid soft tissue fragments which is submitted entirely in one cassette. 4. The specimen is received in formalin labeled, Biopsy Descending Colon Polyp, and consists of two vazquez irregular to polypoid soft tissue fragments measuring 0.2 x 0.2 x 0.1 cm and 0.5 by up to 0.2 x 0.1 cm which are submitted entirely in one cassette. 5. The specimen is received in formalin labeled, Biopsy Rectal Polyps, and consists of a 0.6 x 0.4 by up to 0.2 cm aggregate of vazquez irregular to polypoid soft tissue fragments which is submitted entirely in one cassette. Signed (signature on file) Vanessa Casas MD 04/18 1106 END OF REPORT * ML=Testing performed at Main Lab DEPARTMENT OF PATHOLOGY, [address] [place] [address] Ramin Cabrera M.D. Director [facility] # [id number] 18 Community Relations Liaison: [id number] 19 Community Relations Liaison: [id number] 20 Therapeutic target for the treatment of diabetes mellitus patients is <7% HBA1C, and in selective patients <6.0%. Please refer to [employer] Diabetes Association diabetic care guidelines for further information. 21 Desirable: <150 Borderline High: 150-199 High: 200-499 Very High: >500 22 Desirable: <200 Borderline High: 200-239 High: >239 23 Low: <40 Desirable: 40-60 High: >60 24 Desirable: <100 Near Optimal: 100-129 Borderline High: 130-159 High: 160-189 Very High: >189 25 Because ethnic data is not always readily available, this report includes an eGFR for both -Americans and non- Americans. The National Kidney Disease Education Program (NKDEP) does not endorse the use of the MDRD equation for patients that are not between the ages of 18 and 70, are , have extremes of body size, muscle mass, or nutritional status, or are non- or non-. According to the National Kidney Foundation, irrespective of diagnosis, the stage of the disease is based on the level of kidney function: Stage Description GFR(mL/min/1.73 m(2)) 1 Kidney damage with normal or decreased GFR 90 2 Kidney damage with mild decrease in GFR 60-89 3 Moderate decrease in GFR 30-59 4 Severe decrease in GFR 15-29 5 Kidney failure <15 (or dialysis) 26 Because ethnic data is not always readily available, this report includes an eGFR for both -Americans and non- Americans. The National Kidney Disease Education Program (NKDEP) does not endorse the use of the MDRD equation for patients that are not between the ages of 18 and 70, are , have extremes of body size, muscle mass, or nutritional status, or are non- or non-. According to the National Kidney Foundation, irrespective of diagnosis, the stage of the disease is based on the level of kidney function: Stage Description GFR(mL/min/1.73 m(2)) 1 Kidney damage with normal or decreased GFR 90 2 Kidney damage with mild decrease in GFR 60-89 3 Moderate decrease in GFR 30-59 4 Severe decrease in GFR 15-29 5 Kidney failure <15 (or dialysis) 27 [id number] 28 Desirable <150 Borderline high 150-199 High 200-499 Very High >500 29 Desirable <200 Borderline high 200-239 High >239 30 Low <40 Desirable: 40-60 High: >60 31 Desirable: <100 mg/dL Near Optimal: 100-129 mg/dL Borderline High: 130-159 mg/dL High: 160-189 mg/dL Very High: >189 mg/dL 32 Therapeutic target for the treatment of diabetes Mellitus patients is <7% HBA1C, and in selective patients <6.0%.Please refer to [employer] Diabetes Association Diabetic care guidelines for further information. 33 >100 to <200 pg/mL: likely compensated congestive heart failure (CHF) 200 to 400 pg/mL: likely moderate CHF >400 pg/mL: likely moderate to severe CHF 34 Acute inflammation: >10.00 35 Critical Result LACT:2.1 Called to CL at: 17:03:13 by:[id number] Read back by:CL [facility] Severe Sepsis and Septic Shock Management Bundle Measure requires all lactic acids initially measuring >2.0 mmol/L be repeated. 36 Because ethnic data is not always readily available, this report includes an eGFR for both -Americans and non- Americans. The National Kidney Disease Education Program (NKDEP) does not endorse the use of the MDRD equation for patients that are not between the ages of 18 and 70, are , have extremes of body size, muscle mass, or nutritional status, or are non- or non-. According to the National Kidney Foundation, irrespective of diagnosis, the stage of the disease is based on the level of kidney function: Stage Description GFR(mL/min/1.73 m(2)) 1 Kidney damage with normal or decreased GFR 90 2 Kidney damage with mild decrease in GFR 60-89 3 Moderate decrease in GFR 30-59 4 Severe decrease in GFR 15-29 5 Kidney failure <15 (or dialysis) 37 99th percentile=0.04 ng/mL Troponin results at [facility] and [facility] are not interchangeable. 38 >100 to <200 pg/mL: likely compensated congestive heart failure (CHF) 200 to 400 pg/mL: likely moderate CHF >400 pg/mL: likely moderate to severe CHF 39 [facility] Severe Sepsis and Septic Shock Management Bundle Measure requires all lactic acids initially measuring >2.0 mmol/L be repeated. 40 SEE RESULT BELOW Name: LEONIDES TAYLOR : [address]: Elliott Brown MD Acct: [id number] Unit: [id number] AGE: 71 Location: [place] [address] Re11/12/16 Dis: 11/15/16 SEX: M Status: DIS IN SPEC: [id number] LIN: 11/11/16-160 [facility] DR: Jr Morrison MD REQ: [id number] RECD: 11/11/16 STATUS: CANELO BOOKER DR: Lluvia Stevens [employer] _ SOURCE: BLOOD,VENO SPDESC: ORDERED: Blood Cult Procedure Result Reported Site Aerobic Culture Bottle Final 11/16/16- 1619 ML No Growth Day 5 Anaerobic Culture Bottle Final 11/16/16- 1619 ML No Growth Day 5 * ML - MAIN LAB ([facility]) . END OF REPORT * ML=Testing performed at Main Lab DEPARTMENT OF PATHOLOGY, [address] [place] [address] Ramin Cabrera M.D. Director [facility] # [id number] 41 Acute inflammation: >10.00 42 99th percentile=0.04 ng/mL Troponin results at [facility] and [facility] are not interchangeable. 43 Because ethnic data is not always readily available, this report includes an eGFR for both -Americans and non- Americans. The National Kidney Disease Education Program (NKDEP) does not endorse the use of the MDRD equation for patients that are not between the ages of 18 and 70, are , have extremes of body size, muscle mass, or nutritional status, or are non- or non-. According to the National Kidney Foundation, irrespective of diagnosis, the stage of the disease is based on the level of kidney function: Stage Description GFR(mL/min/1.73 m(2)) 1 Kidney damage with normal or decreased GFR 90 2 Kidney damage with mild decrease in GFR 60-89 3 Moderate decrease in GFR 30-59 4 Severe decrease in GFR 15-29 5 Kidney failure <15 (or dialysis) 44 Community Relations Liaison: [id number] Allen Brenner 45 SEE RESULT BELOW Name: BRANDONLEONIDES AGUIRRE : [address]: Jr Morrison MD Acct: [id number] Unit: [id number] AGE: 71 Location: ED Re11/11/16 SEX: M Status: REG ER SPEC: [id number] LIN: 11/11/16-0 [facility] DR: Jr Morrison MD REQ: [id number] RECD: 11/11/16 STATUS: CANELO BOOKER DR: Lluvia Stevens [employer]ING UPHOLSTERER _ SOURCE: NASAL SPDESC: ORDERED: Flu A B Request Procedure Result Reported Site Rapid Influenza A B Request Final 11/11/16- 1755 ML Specimen received for Influenza A/B Molecular testing * ML - MAIN LAB ([facility]) . END OF REPORT * ML=Testing performed at Main Lab DEPARTMENT OF PATHOLOGY, [address] [place] [address] Ramin Cabrera M.D. Director [facility] # [id number] 46 Verbal to [id number] by [id number] at 1758 on 11/11/16. Results read back accurately. 47 Reference ranges based on room air. 48 Because ethnic data is not always readily available, this report includes an eGFR for both -Americans and non- Americans. The National Kidney Disease Education Program (NKDEP) does not endorse the use of the MDRD equation for patients that are not between the ages of 18 and 70, are , have extremes of body size, muscle mass, or nutritional status, or are non- or non-. According to the National Kidney Foundation, irrespective of diagnosis, the stage of the disease is based on the level of kidney function: Stage Description GFR(mL/min/1.73 m(2)) 1 Kidney damage with normal or decreased GFR 90 2 Kidney damage with mild decrease in GFR 60-89 3 Moderate decrease in GFR 30-59 4 Severe decrease in GFR 15-29 5 Kidney failure <15 (or dialysis) 49 Therapeutic target for the treatment of diabetes Mellitus patients is <7% HBA1C, and in selective patients <6.0%.Please refer to [employer] Diabetic care guidelines for further information. 50 Desirable <150 Borderline high 150-199 High 200-499 Very High >500 51 Desirable <200 Borderline high 200-239 High >239 52 Low <40 Desirable: 40-60 High: >60 53 Desirable: <100 mg/dL Near Optimal: 100-129 mg/dL Borderline High: 130-159 mg/dL High: 160-189 mg/dL Very High: >189 mg/dL 54 Reference Range and Interpretation: TnI (ng/mL) Interpretation Less Than 0.03 ng/mL Not supportive of diagnosis of [place] 0.03 - 0.50 ng/mL Indeterminate: suggest serial studies if clinically indicated. Greater than 0.5 ng/mL Consistent with diagnosis of [place] 55 Because ethnic data is not always readily available, this report includes an eGFR for both -Americans and non- Americans. The National Kidney Disease Education Program (NKDEP) does not endorse the use of the MDRD equation for patients that are not between the ages of 18 and 70, are , have extremes of body size, muscle mass, or nutritional status, or are non- or non-. According to the National Kidney Foundation, irrespective of diagnosis, the stage of the disease is based on the level of kidney function: Stage Description GFR(mL/min/1.73 m(2)) 1 Kidney damage with normal or decreased GFR 90 2 Kidney damage with mild decrease in GFR 60-89 3 Moderate decrease in GFR 30-59 4 Severe decrease in GFR 15-29 5 Kidney failure <15 (or dialysis) 56 Reference Range and Interpretation: TnI (ng/mL) Interpretation Less Than 0.03 ng/mL Not supportive of diagnosis of [place] 0.03 - 0.50 ng/mL Indeterminate: suggest serial studies if clinically indicated. Greater than 0.5 ng/mL Consistent with diagnosis of [place] 57 SEE RESULT BELOW Name: LEONIDES TAYLOR : [address]: Lluvia Stevens NP Acct: [id number] Unit: [id number] AGE: 69 Location: [facility] Re05/17/15 SEX: M Status: REG REF SPEC: [id number] LIN: 05/17/15-[address]: Lluvia Stevens NP REQ: [id number] RECD: 05/17/15 STATUS: COMP _ SOURCE: URINE SPDESC: ORDERED: Urine Culture Procedure Result Verified Site Urine Culture Final 05/19/15- 09 ML No Growth Day 2 (<1,000 CFU/mL) * ML - [facility] ([facility]) . END OF REPORT * ML=Testing performed at Main Lab DEPARTMENT OF PATHOLOGY, [address] [place] [address] Ramin Cabrera M.D. Director [facility] # [id number] 58 Because ethnic data is not always readily available, this report includes an eGFR for both -Americans and non- Americans. The National Kidney Disease Education Program (NKDEP) does not endorse the use of the MDRD equation for patients that are not between the ages of 18 and 70, are , have extremes of body size, muscle mass, or nutritional status, or are non- or non-. According to the National Kidney Foundation, irrespective of diagnosis, the stage of the disease is based on the level of kidney function: Stage Description GFR(mL/min/1.73 m(2)) 1 Kidney damage with normal or decreased GFR 90 2 Kidney damage with mild decrease in GFR 60-89 3 Moderate decrease in GFR 30-59 4 Severe decrease in GFR 15-29 5 Kidney failure <15 (or dialysis) 59 SEE RESULT BELOW Name: LEONIDES TAYLOR : [address]: Lluvia Stevens NP Acct: [id number] Unit: [id number] AGE: 69 Location: [facility] Re03/11/15 SEX: M Status: REG REF SPEC: [id number] LIN: 03/11/15-[address]: Lluvia Stevens NP REQ: [id number] RECD: 03/11/15-1253 STATUS: COMP _ SOURCE: URINE SPDESC: ORDERED: Urine Culture Procedure Result Verified Site Urine Culture Final 03/13/15- 0825 ML No Growth Day 2 (<1,000 CFU/mL) * ML - MAIN LAB ([facility]) . END OF REPORT * ML=Testing performed at Main Lab DEPARTMENT OF PATHOLOGY, [address] [place] [address] Ramin Cabrera M.D. Director [facility] # [id number] 60 Therapeutic target for the treatment of diabetes Mellitus patients is <7% HBA1C, and in selective patients <6.0%.Please refer to [employer] Diabetic care guidelines for further information. 61 Potassium reference range changed effective 07/04/14 62 Because ethnic data is not always readily available, this report includes an eGFR for both -Americans and non- Americans. The National Kidney Disease Education Program (NKDEP) does not endorse the use of the MDRD equation for patients that are not between the ages of 18 and 70, are , have extremes of body size, muscle mass, or nutritional status, or are non- or non-. According to the National Kidney Foundation, irrespective of diagnosis, the stage of the disease is based on the level of kidney function: Stage Description GFR(mL/min/1.73 m(2)) 1 Kidney damage with normal or decreased GFR 90 2 Kidney damage with mild decrease in GFR 60-89 3 Moderate decrease in GFR 30-59 4 Severe decrease in GFR 15-29 5 Kidney failure <15 (or dialysis) 63 Desirable <150 Borderline high 150-199 High 200-499 Very High >500 64 Desirable <200 Borderline high 200-239 High >239 65 Low <40 Desirable: 40-60 High: >60 66 Desirable <100 Near Optimal 100-129 Borderline high 130-159 High 160-189 Very High >189 67 Therapeutic target for the treatment of diabetes Mellitus patients is <7% HBA1C, and in selective patients <6.0%.Please refer to [employer] Diabetes [employer] Diabetic care guidelines for further information. 68 Desirable <150 Borderline high 150-199 High 200-499 Very High >500 69 Desirable <200 Borderline high 200-239 High >239 70 Low <40 Desirable: 40-60 High: >60 71 Desirable <100 Near Optimal 100-129 Borderline high 130-159 High 160-189 Very High >189 72 Because ethnic data is not always readily available, this report includes an eGFR for both -Americans and non- Americans. The National Kidney Disease Education Program (NKDEP) does not endorse the use of the MDRD equation for patients that are not between the ages of 18 and 70, are , have extremes of body size, muscle mass, or nutritional status, or are non- or non-. According to the National Kidney Foundation, irrespective of diagnosis, the stage of the disease is based on the level of kidney function: Stage Description GFR(mL/min/1.73 m(2)) 1 Kidney damage with normal or decreased GFR 90 2 Kidney damage with mild decrease in GFR 60-89 3 Moderate decrease in GFR 30-59 4 Severe decrease in GFR 15-29 5 Kidney failure <15 (or dialysis) 73 RUN DATE: 11/24/13 [facility] LAB LIVE PAGE 1 RUN TIME: [address] [place] [address] Specimen Inquiry Name: LEONIDES TAYLOR : [address]: Tyson Pérez MD Acct: [id number] Unit: [id number] AGE: 68 Location: ENDO Re11/23/13 SEX: M Status: REG REF SPEC: [id number] LIN: 11/23/13- [facility] DR: Tyson Pérez MD REQ: [id number] RECD: 11/23/13 STATUS: TANG BOOKER DR: Lluvia Stevens [employer]ING UPHOLSTERER _ ORDERED: LEVEL IV/7 FINAL DIAGNOSIS 1. Colon, hepatic flexure, biopsy: A. Tubular adenoma. B. No high grade dysplasia or malignancy. 2. Colon, cecum, biopsy: A. Tubular adenoma. B. No high grade dysplasia or malignancy. 3. Colon, transverse, biopsy: Colonic mucosa with surface hyperplastic change. 4. Colon, descending, biopsy: A. Tubular adenoma. B. No high grade dysplasia or malignancy. 5. Colon, at 50 cm., biopsy: A. Tubular adenoma. B. No high grade dysplasia or malignancy. 6. Colon, at 30 cm., biopsy: Colonic mucosa with surface hyperplastic change. 7. Colon, at 40 cm., biopsy: A. Tubular adenoma. B. No high grade dysplasia or malignancy. CONTINUED ON NEXT PAGE * ML=Testing performed at Main Lab DEPARTMENT OF PATHOLOGY, [facility] [employer] [place] [address] Ramin Cabrera M.D. Director [facility] Permit #[id number] RUN DATE: 11/24/13 [facility] LAB LIVE PAGE 2 RUN TIME: [address] [place] [address] Specimen Inquiry Patient: LEONIDES TAYLOR Gopi [id number] (Continued) CLINICAL HISTORY (Continued) CLINICAL HISTORY Screening colonoscopy with abdominal pain. Father with colon cancer POST-OPERATIVE DIAGNOSIS Screening colonoscopy into cecum, prep good - 8 polyps removed, sigmoid diverticulosis GROSS DESCRIPTION 1. The specimen is received in formalin labeled Leonides Taylor, Hepatic Flexure Polyps, and consists of two vazquez-pink, irregular soft tissue fragments measuring 0.9 x 0.4 x 0.2 cm. and 0.9 x 0.8 x 0.2 cm. Submitted entirely, one cassette. 2. The specimen is received in formalin labeled Leonides Taylor, Cecal Polyp , and consists of a 0.7 x 0.6 x 0.2 cm. aggregate of multiple vazquez, irregular soft tissue fragments. Submitted entirely, one cassette. 3. The specimen is received in formalin labeled Leonides Taylor, Transverse Colon Polyp, and consists of a 0.2 x 0.3 x 0.1 cm. vazquez-pink, irregular soft tissue fragment. Submitted entirely, one cassette. 4. The specimen is received in formalin labeled Leonides Yostyle, Descending Colon Polyp, and consists of a 0.8 x 0.3 x 0.3 cm. vazquez-pink polypoid soft tissue fragment. Submitted entirely, one cassette. 5. The specimen is received in formalin labeled Leonides Kelsey Yostyle, Colon Polyp at 50 cm., and consists of a 0.5 x 0.2 x 0.1 cm. vazquez, irregular soft tissue fragment. Submitted entirely, one cassette. 6. The specimen is received in formalin labeled Leonides Kelsey Yostyle, Colon Polyp at 30 cm., and consists of a 0.8 x 0.5 x 0.2 cm. aggregate of multiple vazquez-red, irregular soft tissue fragments. Submitted entirely, one cassette. 7. The specimen is received in formalin labeled Leonides Taylor, Colon Polyp at 40 cm., and consists of a 0.5 x 0.2 x 0.2 cm. vazquez, polypoid soft tissue fragment. Submitted entirely, one cassette. 1. CONTINUED ON NEXT PAGE * ML=Testing performed at Main Lab DEPARTMENT OF PATHOLOGY, [address] [place] [address] Ramin Cabrera M.D. Director [facility] Permit #[id number] RUN DATE: 11/24/13 [facility] LAB LIVE PAGE 3 RUN TIME: [address] [place] [address] Specimen Inquiry Patient: LEONIDES TAYLOR [id number] (Continued) GROSS DESCRIPTION (Continued) Signed (signature on file) Vanessa Casas MD 1758 END OF REPORT * ML=Testing performed at Main Lab DEPARTMENT OF PATHOLOGY, [address] [place] [address] Ramin Cabrera M.D. Director [facility] Permit #[id number] 74 Because ethnic data is not always readily available, this report includes an eGFR for both -Americans and non- Americans. The National Kidney Disease Education Program (NKDEP) does not endorse the use of the MDRD equation for patients that are not between the ages of 18 and 70, are , have extremes of body size, muscle mass, or nutritional status, or are non- or non-. According to the National Kidney Foundation, irrespective of diagnosis, the stage of the disease is based on the level of kidney function: Stage Description GFR(mL/min/1.73 m(2)) 1 Kidney damage with normal or decreased GFR 90 2 Kidney damage with mild decrease in GFR 60-89 3 Moderate decrease in GFR 30-59 4 Severe decrease in GFR 15-29 5 Kidney failure <15 (or dialysis) 75 HDL Interpretation: Undesirable: High Risk: Less than 40 mg/dL Desirable: Low Risk: Greater than 60 mg/dL 76 LDL Interpretation: Low Risk Optimal Level: LDL Less than 100 mg/dL Near or Above Optimal: LDL 100-129 mg/dL Borderline High Risk: LDL 130-159 mg/dL High Risk: LDL 160-189 mg/dL Very High Risk: LDL Greater than 189 mg/dL 77 Serum levels of PSA measured using the [employer] DXI Hybritech immunoassay should not be interpreted as absolute evidence of the presence or absence of disease. The PSA value should be used in conjunction with other pertinent clinical diagnostic procedures. The values obtained with different assay methods or kits cannot be used interchangeably. 78 Therapeutic target for the treatment of diabetes Mellitus patients is <7% HBA1C, and in selective patients <6.0%.Please refer to [employer] Diabetes [employer] Diabetic care guidelines for further information. 79 Because ethnic data is not always readily available, this report includes an eGFR for both -Americans and non- Americans. The National Kidney Disease Education Program (NKDEP) does not endorse the use of the MDRD equation for patients that are not between the ages of 18 and 70, are , have extremes of body size, muscle mass, or nutritional status, or are non- or non-. According to the National Kidney Foundation, irrespective of diagnosis, the stage of the disease is based on the level of kidney function: Stage Description GFR(mL/min/1.73 m(2)) 1 Kidney damage with normal or decreased GFR 90 2 Kidney damage with mild decrease in GFR 60-89 3 Moderate decrease in GFR 30-59 4 Severe decrease in GFR 15-29 5 Kidney failure <15 (or dialysis) 80 Reference Range and Interpretation: TnI (ng/ml) Interpretation Less Than 0.06 ng/mL Not supportive of diagnosis of [place] 0.06 - 0.50 ng/ml Indeterminate: suggest serial studies if clinically indicated. Greater than 0.5 ng/mL Consistent with diagnosis of [place] 81 Anion gap measurement may be of limited value in the presence of any alkalosis, especially in a combined acid base disorder. . 82 A metabolite of Naproxen, O-desmethylnaproxen, has been shown to interfere with the Jendrassik-Cecilia method for measuring total bilirubin. Samples from patients who have taken Naproxen have shown spurious elevation in total bilirubin levels. 83 Because ethnic data is not always readily available, this report includes an eGFR for both -Americans and non- Americans. The National Kidney Disease Education Program (NKDEP) does not endorse the use of the MDRD equation for patients that are not between the ages of 18 and 70, are , have extremes of body size, muscle mass, or nutritional status, or are non- or non-. According to the National Kidney Foundation, irrespective of diagnosis, the stage of the disease is based on the level of kidney function: Stage Description GFR(mL/min/1.73 m(2)) 1 Kidney damage with normal or decreased GFR 90 2 Kidney damage with mild decrease in GFR 60-89 3 Moderate decrease in GFR 30-59 4 Severe decrease in GFR 15-29 5 Kidney failure <15 (or dialysis) 84 Recommended INR for Patients on Oral Anticoagulants Prophylaxis 2.0 - 3.0 Treatment of thrombosis 2.0 - 3.0 Prevention of embolism 2.0 - 3.0 Prevention of embolism from prosthetic heart valves 2.5 - 3.5 85 DIAGNOSIS,TREATMENT,AND THERAPY MUST BE BASED ON THE INR VALUE ALONE. 86 RUN DATE: 05/12/12 [facility] NMI LIVE PAGE 1 RUN TIME: 914 Specimen Inquiry RUN USER: INTERFACE Name: LEONIDES TAYLOR Status: REG REF Re05/10/12 Age/Sex: 66/M Unit#: [id number] Location: [facility] : [birth year] SPEC #: [id number] LIN: 05/10/12-1157 STATUS: COMP REQ #: [id number] RECD: 05/10/12-1323 [facility] DR: Neri [employer]OX SPRING UPHOLSTERER,Leni Davlia SOURCE: URINE ENTR: 05/10/12-[address]: SPDES: ORDERED: URINE C S QUERIES: MEDENT REQUISITION # [id number] SPECIMEN DESCRIPTION: URINE, CLEAN CATCH ACT WKST: UR 05/12/12 #1 Procedure Result Verified Site > URINE CULTURE SENSITIVI Final -0915 ML FINAL: NO GROWTH DAY 2 (<1,000 CFU/mL) ML - [facility] Permit #[id number] [address] [place] [address] DEPARTMENT OF PATHOLOGY, [address] [place] [address] [facility] Permit #[id number] Ramin Cabrera M.D. Director Lisa Haro M.D. [employer] 87 THERAPEUTIC TARGET FOR THE TREATMENT OF DIABETES MELLITUS PATIENTS IS <7% HBA1C, AND IN SELECTIVE PATIENTS <6.0%. PLEASE REFER TO [place] [employer] DIABETIC CARE GUIDELINES FOR FURTHER INFORMATION. 88 [id number] 89 Anion gap measurement may be of limited value in the presence of any alkalosis, especially in a combined acid base disorder. . 90 A metabolite of Naproxen, O-desmethylnaproxen, has been shown to interfere with the Jendrassik-Carleton method for measuring total bilirubin. Samples from patients who have taken Naproxen have shown spurious elevation in total bilirubin levels. 91 Because ethnic data is not always readily available, this report includes an eGFR for both -Americans and non- Americans. The National Kidney Disease Education Program (NKDEP) does not endorse the use of the MDRD equation for patients that are not between the ages of 18 and 70, are , have extremes of body size, muscle mass, or nutritional status, or are non- or non-. According to the National Kidney Foundation, irrespective of diagnosis, the stage of the disease is based on the level of kidney function: Stage Description GFR(mL/min/1.73 m(2)) 1 Kidney damage with normal or decreased GFR 90 2 Kidney damage with mild decrease in GFR 60-89 3 Moderate decrease in GFR 30-59 4 Severe decrease in GFR 15-29 5 Kidney failure <15 (or dialysis) 92 CHOLESTEROL INTERPRETATION: Desirable: Less than 200 MG/DL Borderline-High Risk: 200-239 MG/DL High-Risk: 240 MG/DL and over 93 HDL INTERPRETATION: Undesirable: High Risk: Less than 40 MG/DL Desirable: Low Risk: Greater than 60 MG/DL 94 LDL INTERPRETATION: Low Risk Optimal Level: LDL Less than 100 MG/DL Near or Above Optimal: LDL 100-129 MG/DL Borderline High Risk: LDL 130-159 MG/DL High Risk: LDL 160-189 MG/DL Very High Risk: LDL Greater than 189 MG/DL 95 * SERUM LEVELS OF PSA MEASURED USING THE [email or web address] ACCESS HYBRITECH IMMUNOASSAY SHOULD NOT BE INTERPRETED ABSOLUTE EVIDENCE OF THE PRESENCE OR ABSENCE OF DISEASE. THE PSA VALUE SHOULD BE USED IN CONJUNCTION WITH OTHER PERTINENT CLINICAL DIAGNOSTIC PROCEDURES. The values obtained with different assay methods or kits cannot be used interchangeably. 96 THERAPEUTIC TARGET FOR THE TREATMENT OF DIABETES MELLITUS PATIENTS IS <7% HBA1C, AND IN SELECTIVE PATIENTS <6.0%. PLEASE REFER TO [place] [employer] DIABETIC CARE GUIDELINES FOR FURTHER INFORMATION. 97 FASTING 98 CHOLESTEROL INTERPRETATION: Desirable: Less than 200 MG/DL Borderline-High Risk: 200-239 MG/DL High-Risk: 240 MG/DL and over 99 HDL INTERPRETATION: Undesirable: High Risk: Less than 40 MG/DL Desirable: Low Risk: Greater than 60 MG/DL 100 LDL INTERPRETATION: Low Risk Optimal Level: LDL Less than 100 MG/DL Near or Above Optimal: LDL 100-129 MG/DL Borderline High Risk: LDL 130-159 MG/DL High Risk: LDL 160-189 MG/DL Very High Risk: LDL Greater than 189 MG/DL 101 Anion gap measurement may be of limited value in the presence of any alkalosis, especially in a combined acid base disorder. . 102 A metabolite of Naproxen, O-desmethylnaproxen, has been shown to interfere with the Jendrassik-Carleton method for measuring total bilirubin. Samples from patients who have taken Naproxen have shown spurious elevation in total bilirubin levels. 103 Because ethnic data is not always readily available, this report includes an eGFR for both -Americans and non- Americans. The National Kidney Disease Education Program (NKDEP) does not endorse the use of the MDRD equation for patients that are not between the ages of 18 and 70, are , have extremes of body size, muscle mass, or nutritional status, or are non- or non-. According to the National Kidney Foundation, irrespective of diagnosis, the stage of the disease is based on the level of kidney function: Stage Description GFR(mL/min/1.73 m(2)) 1 Kidney damage with normal or decreased GFR 90 2 Kidney damage with mild decrease in GFR 60-89 3 Moderate decrease in GFR 30-59 4 Severe decrease in GFR 15-29 5 Kidney failure <15 (or dialysis) 104 THERAPEUTIC TARGET FOR THE TREATMENT OF DIABETES MELLITUS PATIENTS IS <7% HBA1C, AND IN SELECTIVE PATIENTS <6.0%. PLEASE REFER TO [place] [employer] DIABETIC CARE GUIDELINES FOR FURTHER INFORMATION. 105 * SERUM LEVELS OF PSA MEASURED USING THE [email or web address] ACCESS HYBRITECH IMMUNOASSAY SHOULD NOT BE INTERPRETED ABSOLUTE EVIDENCE OF THE PRESENCE OR ABSENCE OF DISEASE. THE PSA VALUE SHOULD BE USED IN CONJUNCTION WITH OTHER PERTINENT CLINICAL DIAGNOSTIC PROCEDURES. 106 Anion gap measurement may be of limited value in the presence of any alkalosis, especially in a combined acid base disorder. . 107 A metabolite of Naproxen, O-desmethylnaproxen, has been shown to interfere with the Jendrassik-Carleton method for measuring total bilirubin. Samples from patients who have taken Naproxen have shown spurious elevation in total bilirubin levels. 108 Because ethnic data is not always readily available, this report includes an eGFR for both -Americans and non- Americans. The National Kidney Disease Education Program (NKDEP) does not endorse the use of the MDRD equation for patients that are not between the ages of 18 and 70, are , have extremes of body size, muscle mass, or nutritional status, or are non- or non-. According to the National Kidney Foundation, irrespective of diagnosis, the stage of the disease is based on the level of kidney function: Stage Description GFR(mL/min/1.73 m(2)) 1 Kidney damage with normal or decreased GFR 90 2 Kidney damage with mild decrease in GFR 60-89 3 Moderate decrease in GFR 30-59 4 Severe decrease in GFR 15-29 5 Kidney failure <15 (or dialysis) 109 CHOLESTEROL INTERPRETATION: Desirable: Less than 200 MG/DL Borderline-High Risk: 200-239 MG/DL High-Risk: 240 MG/DL and over 110 HDL INTERPRETATION: Undesirable: High Risk: Less than 40 MG/DL Desirable: Low Risk: Greater than 60 MG/DL 111 LDL INTERPRETATION: Low Risk Optimal Level: LDL Less than 100 MG/DL Near or Above Optimal: LDL 100-129 MG/DL Borderline High Risk: LDL 130-159 MG/DL High Risk: LDL 160-189 MG/DL Very High Risk: LDL Greater than 189 MG/DL 112 * SERUM LEVELS OF PSA MEASURED USING THE KE[place] [email or web address] ACCESS HYBRITECH IMMUNOASSAY SHOULD NOT BE INTERPRETED ABSOLUTE EVIDENCE OF THE PRESENCE OR ABSENCE OF DISEASE. THE PSA VALUE SHOULD BE USED IN CONJUNCTION WITH OTHER PERTINENT CLINICAL DIAGNOSTIC PROCEDURES. 113 CHOLESTEROL INTERPRETATION: Desirable: Less than 200 MG/DL Borderline-High Risk: 200-239 MG/DL High-Risk: 240 MG/DL and over 114 HDL INTERPRETATION: Undesirable: High Risk: Less than 40 MG/DL Desirable: Low Risk: Greater than 60 MG/DL 115 LDL INTERPRETATION: Low Risk Optimal Level: LDL Less than 100 MG/DL Near or Above Optimal: LDL 100-129 MG/DL Borderline High Risk: LDL 130-159 MG/DL High Risk: LDL 160-189 MG/DL Very High Risk: LDL Greater than 189 MG/DL 116 Anion gap measurement may be of limited value in the presence of any alkalosis, especially in a combined acid base disorder. . 117 Note change in reference range as of 04/22/08. The change was based on recommendations from the [employer]. 118 Please note change in reference range effective 08 . 119 A metabolite of Naproxen, O-desmethylnaproxen, has been shown to interfere with the Jendrassik-Carleton method for measuring total bilirubin. Samples from patients who have taken Naproxen have shown spurious elevation in total bilirubin levels. 120 Because ethnic data is not always readily available, this report includes an eGFR for both -Americans and non- Americans. The National Kidney Disease Education Program (NKDEP) does not endorse the use of the MDRD equation for patients that are not between the ages of 18 and 70, are , have extremes of body size, muscle mass, or nutritional status, or are non- or non-. According to the National Kidney Foundation, irrespective of diagnosis, the stage of the disease is based on the level of kidney function: Stage Description GFR(mL/min/1.73 m(2)) 1 Kidney damage with normal or decreased GFR 90 2 Kidney damage with mild decrease in GFR 60-89 3 Moderate decrease in GFR 30-59 4 Severe decrease in GFR 15-29 5 Kidney failure <15 (or dialysis) 121 CHOLESTEROL INTERPRETATION: Desirable: Less than 200 MG/DL Borderline-High Risk: 200-239 MG/DL High-Risk: 240 MG/DL and over 122 HDL INTERPRETATION: Undesirable: High Risk: Less than 40 MG/DL Desirable: Low Risk: Greater than 60 MG/DL 123 LDL INTERPRETATION: Low Risk Optimal Level: LDL Less than 100 MG/DL Near or Above Optimal: LDL 100-129 MG/DL Borderline High Risk: LDL 130-159 MG/DL High Risk: LDL 160-189 MG/DL Very High Risk: LDL Greater than 189 MG/DL 124 Anion gap measurement may be of limited value in the presence of any alkalosis, especially in a combined acid base disorder. . 125 Note change in reference range as of 04/22/08. The change was based on recommendations from the [employer]. 126 Please note change in reference range effective 08 . 127 * SERUM LEVELS OF PSA MEASURED USING THE [place] [email or web address] ACCESS HYBRITECH IMMUNOASSAY SHOULD NOT BE INTERPRETED ABSOLUTE EVIDENCE OF THE PRESENCE OR ABSENCE OF DISEASE. THE PSA VALUE SHOULD BE USED IN CONJUNCTION WITH OTHER PERTINENT CLINICAL DIAGNOSTIC PROCEDURES. 128 Anion gap measurement may be of limited value in the presence of any alkalosis, especially in a combined acid base disorder. . 129 CHOLESTEROL INTERPRETATION: Desirable: Less than 200 MG/DL Borderline-High Risk: 200-239 MG/DL High-Risk: 240 MG/DL and over 130 HDL INTERPRETATION: Undesirable: High Risk: Less than 40 MG/DL Desirable: Low Risk: Greater than 60 MG/DL 131 LDL INTERPRETATION: Low Risk Optimal Level: LDL Less than 100 MG/DL Near or Above Optimal: LDL 100-129 MG/DL Borderline High Risk: LDL 130-159 MG/DL High Risk: LDL 160-189 MG/DL Very High Risk: LDL Greater than 189 MG/DL 132 Classification: High . 133 CALCULATED LDL APPROXIMATES THE VALUE OF A DIRECT LDL MEASUREMENT. Classification: Borderline High . 134 Anion gap measurement may be of limited value in the presence of any alkalosis, especially in a combined acid base disorder. . Procedures Date CPT Code Description Status Comment 11/29/2016 66032 Nebulizer Treatment Completed 01/17/2016 50443 EKG, at Least 12 Leads Completed w/Interpretation and Report 01/16/2016 28353 EKG, at Least 12 Leads Completed w/Interpretation and Report 05/12/2015 00768 Spirometry Completed 05/12/2015 25675 EKG, at Least 12 Leads Completed w/Interpretation and Report 10/31/2013 Colonoscopy Completed 8 polyps-5 tubular adenomas, sigmoid diverticulosis. Repeat 2017. (2008, mild diverticulosis, no polyps) 12/24/2012 48065 Nebulizer Treatment Completed 11/21/2012 32196 Nebulizer Treatment Completed 03/14/2012 70710 EKG, at Least 12 Leads Completed w/Interpretation and Report 08/29/2010 64185 EKG, at Least 12 Leads Completed w/Interpretation and Report 01/16/2010 17392 EKG, at Least 12 Leads Completed w/Interpretation and Report 02/15/2009 78943 Spirometry Completed Encounters Type Date Location Provider CPT E/M Dx Office Visit 07/29/2017 2:45p Main Office Lluvia Stevens [facility] 18033 Z01.818 J44.9 E11.65 Office Visit 02/11/2017 1:30p Main Office Lluvia Stevens [facility] 37002 Z00.00 J44.9 E78.5 I10 Office Visit 12/26/2016 3:45p Main Office Leni Gallegosjing [facility] 96695 H81.10 Office Visit 11/29/2016 10:30a [place] [address] J44.1 Office Visit 11/19/2016 9:30a Main Office Lluvia Stevens [facility] 54595 J44.1 Office Visit 08/16/2016 4:30p Main Office Lluvia Stevens [facility] 45886 M46.1 Office Visit 01/16/2016 9:45a Main Office Lluvia Stevens, [facility] 41558 Z01.818 N20.0 J44.9 Office Visit 07/19/2015 1:30p Main Office Lluvia Stevens, [facility] 69980 Z00.00 J44.9 Office Visit 06/28/2015 11:15a Main Office Lluvia Stevens [facility] 64378 N20.0 Office Visit 05/12/2015 8:45a Main Office Lluvia Stevens [facility] 47922 V72.84 592.0 496 V04.81 Office Visit 03/11/2015 11:00a Main Office Lluvia Stevens, [facility] 49401 599.70 Office Visit 01/27/2015 11:00a Main Office Lluvia Stevens, [facility] 54182 599.70 Office Visit 12/17/2014 9:45a Main Office Lluvia Stevens, [facility] 81824 466.0 Office Visit 07/15/2014 1:30p Main Office Lluvia Stevens, [facility] 70663 V70.0 V72.62 401.9 496 305.1 V03.82 Office Visit 01/11/2014 9:45a Main Office Lluvia Stveens, [facility] 56993 496 305.1 401.9 Office Visit 08/28/2013 11:15a Main Office Lluvia Stevens, [facility] 87304 789.04 Office Visit 07/13/2013 9:00a Main Office Lluvia Stevens, [facility] 48299 V70.0 V72.62 250.70 Office Visit 04/28/2013 11:30a Main Office Lluvia Stevens, [facility] 17329 491.21 Office Visit 04/23/2013 11:00a Main Office Lluvia Stevens, [facility] 82452 491.21 Office Visit 04/20/2013 12:00p Main Office Jael Olivarez M.D. 93578 466.0 305.1 Office Visit 01/08/2013 10:00a Main Office Lluvia Stevens, [facility] 24983 496 Office Visit 12/24/2012 11:30a Main Office Leni Neri, [facility] 65854 496 Office Visit 12/08/2012 11:30a Main Office Lluvia Stevens, [facility] 25532 780.2 305.1 Office Visit 11/21/2012 2:45p Main Office Lluvia Stevens, [facility] 45920 466.0 Office Visit 05/10/2012 9:15a Main Office Leni Gallegoskelvey, [facility] 69206 599.70 Office Visit 04/03/2012 10:00a Main Office Lluvia Stevens, [facility] 43828 053.9 Office Visit 03/14/2012 9:00a Main Office Lluvia Stevens, [facility] 06769 V70.0 401.9 496 250.70 305.1 278.02 110.5 Office Visit 09/14/2011 10:00a Main Office Lluvia Stevens, [facility] 03011 496 250.70 Office Visit 07/31/2011 2:45p Main Office Lluvia Stevens, [facility] 28387 465.9 Office Visit 05/22/2011 2:15p Main Office Lluvia Stevens, [facility] 99741 496 682.9 Office Visit 03/01/2011 8:00a Main Office Lluvia Stevens [facility] 32817 V70.0 272.4 401.9 496 305.1 278.02 Office Visit 08/29/2010 9:00a Main Office Lluvia Stevens [facility] 59827 496 786.59 305.1 Office Visit 08/15/2010 10:00a Main Office Lluvia Stevens [facility] 07449 782.1 Office Visit 02/27/2010 9:00a Main Office Lluvia Stevens, [facility] 28815 496 Office Visit 01/16/2010 8:00a Main Office Lluvia Stevens [facility] 19984 401.9 496 305.1 278.02 V70.0 272.4 608.89 Office Visit 08/18/2009 8:45a Main Office Lluvia Stevens, [facility] 56752 496 305.1 401.9 278.02 V04.81 Office Visit 06/28/2009 11:00a Main Office Lluvia Stevens, [facility] 81494 466.0 Office Visit 02/15/2009 8:45a Main Office Lluvia Stevens [facility] 24955 496 Office Visit 01/04/2009 8:00a Main Office Lluvia Setvens [facility] 21247 V70.0 272.4 401.9 496 305.1 278.02 600.01 477.9 Office Visit 10/29/2008 9:00a Main Office Lluvia Stevens, [facility] 80461 496 272.4 401.9 Office Visit 06/28/2008 8:45a Main Office Lluvia Stevens [facility] 70466 496 305.1 V04.81 V03.82 Office Visit 05/27/2008 3:00p Main Office Lluvia Stevens, [facility] 61455 729.2 496 305.1 Office Visit 11/21/2007 8:00a Main Office KAZ Painter 90978 401.9 272.4 600.01 496 278.02 305.1 V70.0 Office Visit 2007 8:45a Main Office KAZ Painter 34536 305.1 278.02 496 401.9 Office Visit 06/24/2007 8:00a Main Office KAZ Painter 50119 401.9 305.1 496 278.02 272.4 600.01 Plan of Care Future Appointment(s):01/02/2018 2:30 pm - KAZ Paintre at Main [facility]lsq[facility]o7510/04/2017 - LIDIA PainterCJ44.9 Chronic obstructive pulmonary disease, unspecifiedComments:DOING MUCH BETTER, CONTINUE WITH SMOKING CESSATION , CONTINUE TO FOLLOW WITH PULMONOLOGY, WILL FOLLOWIN 3 MONTHSFollow up:F/U DM AND COPD IN 3 MONTHS
--- OUTSIDE RECORDS SUMMARY | 2017-10-31 17:03 | XMS REPORT ---
:1945 External Reference #:[id number] Author Organization [facility] Address [address] [address] Phone [phone] Care Team Providers Name Role Phone Lluvia Stevens NP Care Team Information Manpower Development Advisor Unavailable Lluvia Stevens NP Primary Care Physician Unavailable Payers Type Date Identification Numbers Payment Provider Subscriber Commercial Policy Number: [id number] [employer] Options Brandan Taylor PayID: [id number] [address] [address] Attn: [place] [address] Problems Date Description Provider Status Onset: 03/28/2017 Chronic obstructive lung disease Katelyn Mix MD Active Onset: 03/28/2017 Obstructive sleep apnea syndrome Katelyn Mix MD Active Onset: 03/28/2017 Obesity Katelyn Mix MD Active Family History Date Family Member(s) Problem(s) Comments Father due to unrelated () - 70 to cardiac disease Father Colon Cancer Father Diabetes Mother due to not related () to cardiac disease Mother Hypertension : (age 65 Mother due to Motor in MVA Years) Vehicle Accident Siblings 6 Siblings no known cardiac issues Social History Type Date Description Comments Marital Status Significant Other Lives With Girlfriend Occupation Retired Cigarette Use Former Cigarette Smoker 1 50 years. 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 Allergies, Adverse Reactions, Alerts Date Description Reaction Status Severity Comments 04/24/2017 Hydrocodone Respiratory Distress active 06/06/2015 NKDA inactive Medications Medication Date Status Form Strength Qnty SIG Indications Ordering Provider Eliceo Gomez 04/24 Active Aerosol 100-25mcg 60uni 1 puff J44.9 Katelyn /2017 /Inh ts inhaled Maria Del Rosario, daily MD Frederick HFA Active Aerosol 108(90Bas inhale 2 Unknown /0000 e) puffs every mcg/Act six hours prn Advil PM Active Capsules 200mg 2 po qhs Unknown /0000 Multiple Active Tablets 1 po qd Unknown Vitamin/Minerals /0000 Simvastatin Active Tablets 10mg take 1 Unknown /0000 tablet at bedtime Tamsulosin HCL Active Capsules 0.4mg 1 by mouth Unknown /0000 every day Hydrochlorothiazid Active Tablets 25mg 1 by mouth Unknown e /0000 every day Incruse Ellipta Active Aerosol 62.5mcg/I inhale 1 Unknown /0000 nh puff by mouth every day Prednisone Active Tablets 10mg Take as Unknown /0000 Directed On Sheet 18 day taper Aspirin Hx Tablets 325mg 1 by mouth Unknown /0000 DR every day - 03/27 Finasteride Hx Tablets 5mg 1 by mouth Unknown /0000 every day - 03/27 Flovent HFA Hx Aerosol 220mcg/Ac inhale one Unknown /0000 t puff by - mouth twice 04/02 a Foradil Aerolizer Hx Capsules 12mcg 1 cap Unknown /0000 inhalation - every day 03/27 inhale times daily Spiriva Handihaler Hx Capsules 18mcg place 1 Unknown /0000 capsule - into 03/27 inhaler and inhale daily Serevent Diskus Hx Aerosol 50mcg/Dos 1 puff Unknown /0000 e twice a day - 04/11 Potassium Citrate Hx Tablets 10Meq 1 by mouth Unknown ER /0000 ER (1080 mg) two times a - day 10/03 Immunizations CPT Code Status Date Vaccine Lot # [id number] Given 06/11/2016 Influenza Virus 3Yrs & Over Vital Signs Date Vital Result Comment 10/03/2017 Height 72 inches 6'0" Weight 265.00 lb per pt Heart Rate 82 /min BP Systolic Sitting 128 mmHg Rue large cuff BP Diastolic Sitting 74 mmHg Rue large cuff Respiratory Rate 18 /min O2 % BldC Oximetry 94 % On 2L O2 BMI (Body Mass Index) 35.9 kg/m2 04/24/2017 Height 71 inches 5'11" Weight 278.00 lb w/ shoes Heart Rate 78 /min reg BP Systolic Sitting 140 mmHg Rue, lg cuff BP Diastolic Sitting 74 mmHg Rue, lg cuff Respiratory Rate 16 /min O2 % BldC Oximetry 93 % on Ra BMI (Body Mass Index) 38.8 kg/m2 03/28/2017 Height 71 inches 5'11" Weight 276.00 lb Heart Rate 84 /min BP Systolic Sitting 136 mmHg BP Diastolic Sitting 88 mmHg Respiratory Rate 20 /min O2 % BldC Oximetry 96 % O2 via NC @ 2LPM BMI (Body Mass Index) 38.5 kg/m2 Neck Circumference in inches 23 06/07/2015 Height 71 inches 5'11" Weight 284.00 lb w/shoes Heart Rate 86 /min BP Systolic Sitting 172 mmHg LA lg cuff BP Diastolic Sitting 102 mmHg LA lg cuff BP Systolic Standing 152 mmHg la repeat sitting BP Diastolic Standing 87 mmHg la repeat sitting BMI (Body Mass Index) 39.6 kg/m2 Ejection Fraction 55-60 echo 11/27/12 Results Description No Information Procedures Date CPT Code Description Status 04/18/2017 29105 Diffusing Capacity Completed 04/18/2017 59887 Plethysmography Determination Lung Volumes & Per Completed Airway Resist 04/18/2017 92958 Pulmonary Function><Bronchodil Completed 06/10/2015 52441 ECHO Transthoracic, Real-Time 2D With Doppler And Color Completed Flow 06/10/2015 09380 Treadmill Interp/Report Only Completed 06/10/2015 73125 Stress Test Supervsn W/Out I/R Completed 06/07/2015 37673 EKG Tracing & Interpretation Completed 11/27/2012 99333 Color Flow Doppler/Interp & Reprt Completed 11/27/2012 22093 Pulse Wave/Continuous-Interp.RPT Completed 11/27/2012 89715 ECHO Transthorasic Realtime 2D W Doppler & Color Completed Flow Hosp 11/27/2012 57303 EKG, Interpretation Only Completed 09/19/2010 11305 Treadmill Interp/Report Only Completed 09/19/2010 26754 Stress Test Supervsn W/Out I/R Completed Encounters Type Date Location Provider CPT E/M Dx Office Visit 09/29/2017 10:04a [facility], [place] [address] J44.1 Hospitalists E11.9 F17.200 I10 Office Visit 09/28/2017 10:03a [facility], [place] [address] J44.1 Hospitalists E11.9 R00.0 I10 Office Visit 09/27/2017 10:02a [facility], Jordin Dooley 83674 J44.1 Hospitalists Rebecca E11.9 R00.0 I10 Office Visit 04/24/2017 3:15p Pulmonology And Sleep Katelyn Mix MD G9695 J44.9 [facility] G47.33 R09.02 E66.09 Z68.38 F17.210 Office Visit 03/28/2017 11:30a [facility] [place] [address] J44.9 [facility] G47.33 E66.09 Z68.38 F17.210 Office Visit 11/15/2016 1:48p [facility], Jacqueline Mendoza N.P. 53887 J44.1 Hospitalists I10 N40.0 Office Visit 11/14/2016 1:48p [facility], [place] [address] J44.1 Hospitalists I10 N40.0 Office Visit 11/13/2016 1:48p [facility], [place] [address] J44.1 Hospitalists I10 N40.0 Office Visit 11/12/2016 1:47p [facility], [place] [address] J44.1 Hospitalists I10 N40.0 Office Visit 11/11/2016 1:46p [facility], Jacqueline Mendoza N.P. 32852 J44.1 Hospitalists I10 N40.0 Office Visit 06/07/2015 2:30p [facility] Jackson Eduardo M.D. 67686 R55 I10 E66.01 E11.9 E78.0 R94.31 R07.9 Office Visit 11/27/2012 9:58a [facility], Mackenzie Manning, 41474 780.2 Hospitalists M.DBaldev 278.01 780.53 250.90 Office Visit 11/26/2012 9:57a [facility], Stefany Buchanan, 67818 780.2 Hospitalists M.DBaldev 278.01 780.53 250.90 Office Visit 09/19/2010 10:00a [facility] Jackson Eduardo, 88797 402.10 M.DBaldev 272.0 278.01 786.50 Plan of Care Future Appointment(s):04/01/2018 1:45 pm - Katelyn Mix [facility] at [facility]10/03/2017 - Katelyn Mix MDJ44.9 Chronic obstructive pulmonary disease, unspecifiedFollow up:6 nxyabhZ03.33 Obstructive sleep apnea (adult) (pediatric)R09.02 LsxklhendA19.01 Morbid (severe) obesity due to excess calories
[2017-10-31 17:05] LABS: INR 1.05 (0.77-1.02)
[2017-10-31 17:16] LABS: EGFR Non-African American 42.9 (>60)
--- NOTE | 2017-10-31 17:36 | RAD ---
Indication: Hyperglycemia. COPD. Comparison: September 27, 2017 chest radiograph and April 30, 2017 CT. Technique: Upright AP 1642 hours Report: Elevated lung volumes and both diffuse mild prominence of the interstitial markings and patchy rarefaction of the mid to upper lung zone interstitial markings. Blunting of the LEFT costophrenic angle corresponds with large LEFT epicardial fat pad on CT. Minimal LEFT basilar atelectasis. No compelling pleural effusions or evidence for pneumothorax. Upper normal heart size. Unremarkable central pulmonary vasculature and mediastinal contours. IMPRESSION: Stigmata of obstructive lung disease. No acute pulmonary or cardiac process evident.
[2017-10-31] MEDS ORDERED: Insulin REGULAR(*) 1 UNITS UNIT IV PUSH ONE (18:06)
[2017-10-31] MEDS ORDERED: NS 0.9% 1000 ML* 1,000 ML IV SCH (18:15)
[2017-10-31] MEDS: Insulin REGULAR IVPB 100 UNITS/100 ML UNIT IVPB ONE (18:53)
[2017-10-31] MEDS ORDERED: KCL 20 MEQ/100 ML IVPREMIX* 20 MEQ/100 ML BAG IV ONE (19:38)
[2017-10-31] MEDS ORDERED: Albuterol/Ipratropium NEB.SOL* Albuterol 2.5 MG/Ipratropium 0.5 MG 3 ML INH PRN (19:43)
[2017-10-31] MEDS ORDERED: NS 0.45% 1000 ML BAG* 1,000 ML IV SCH ×2 (20:00)
[2017-10-31] MEDS ORDERED: Nicotine GUM* 2 MG PO PRN (20:13)
--- NOTE | 2017-10-31 20:17 | ED ---
Dyllan Alberto Thomas, scribed for Noah Milton MD on 10/31/17 at 1719 . HPI Diabetic - HPI Summary HPI Summary: The patient is a 72 year old male who went to his primary care physician due to tongue swelling for the last month. Bloodwork was obtained that revealed blood sugar in the 800s, prompting a visit to the emergency department. The patient was on metformin for his diabetes, although he stopped taking it because it gave him abdominal pain. The patient complains of generalized malaise, fatigue, polydipsia, and polyuria for the past month. The patient denies chest pain and shortness of breath. - History Of Current Complaint Chief Complaint: EDDiabeticProb Time Seen by Provider: 10/31/17 16:18 Hx Obtained From: Patient Onset/Duration: Still Present Timing: Weeks - onset one month ago Severity Currently: Mild Aggravating: Non-compliant Alleviating: Nothing Associated Signs & Symptoms: Negative - CP, SOB, Polydipsia, Polyuria - Allergies/Home Medications Allergies/Adverse Reactions: Allergies Allergy/AdvReac Type Severity Reaction Status Date / Time oxycodone Allergy Difficulty Verified 10/31/17 20:08 Breathing PMH/Surg Hx/FS Hx/Imm Hx Endocrine/Hematology History: Reports: Hx Diabetes - borderline Denies: Hx Anticoagulant Therapy, Hx Blood Disorders, Hx Blood Transfusions, Hx Bone Marrow Disease, Hx Systemic Lupus Erythematosus, Hx Sickle Cell Disease , Hx Thyroid Disease, Hx Anemia, Hx Unexplained Bleeding, Other Endocrine/ Hematological Disorders Cardiovascular History: Reports: Hx Angina, Hx Hypercholesterolemia, Hx Hypertension - on meds, Hx Syncope Denies: Hx Aneurysm, Hx Angioplasty, Hx Auto Implanted Cardiovert Defib, Hx Cardiac Arrest, Hx Cardiomegaly, Hx Congenital Heart Disease, Hx Congestive Heart Failure, Hx Coronary Artery Disease, Hx Deep Vein Thrombosis, Hx Embolism , Hx Hypotension, Hx Pacemaker/ICD, Hx Peripheral Vascular Disease, Hx Rheumatic Fever, Hx Valvular Heart Disease, Other Cardiovascular Problems/ Disorders Respiratory History: Reports: Hx Asthma - copd, Hx Chronic Obstructive Pulmonary Disease (COPD), Hx Sleep Apnea Denies: Hx Chronic Bronchitis, Hx Cystic Fibrosis, Hx Lung Cancer, Hx Pleural Effusion, Hx Pneumonia, Hx Pulmonary Edema, Hx Pulmonary Embolism, Hx Seasonal Allergies Comment Only: Other Respiratory Problems/Disorders - copd, o2 2l at night GI History: Denies: Hx Cirrhosis, Hx Crohn's Disease, Hx Diverticulosis, Hx Gall Bladder Disease, Hx Gastroesophageal Reflux Disease, Hx Gastrointestinal Bleed, Hx Hiatal Hernia, Hx Irritable Bowel, Hx Jaundice, Hx Obstructive Bowel, Hx Ileostomy, Hx Pyloric Stenosis, Hx Ulcer, Other GI Disorders History: Reports: Hx Kidney Stones - x3 Denies: Hx Acute Renal Failure, Hx Benign Prostatic Hyperplasia, Hx Chronic Renal Failure, Hx Dialysis, Hx Kidney Infection, Other Problems/Disorders Musculoskeletal History: Denies: Hx Arthritis, Hx Back Problems, Hx Bursitis, Hx Congenital Bone Abnormalities, Hx Fibromyalgia, Hx Gout, Hx Orthopedic Injury, Hx Osteoporosis, Hx Scoliosis, Hx Tendonitis, Other Musculoskeletal History Sensory History: Reports: Hx Contacts or Glasses - glasses Denies: Hx Cataracts, Hx Eye Injury, Hx Eye Prosthesis, Hx Glaucoma, Hx Legally Blind, Hx Macular Degeneration, Hx Vision Problem, Hx Deafness, Hx Hearing Aid, Hx Hearing Problem, Other Sensory Impairments Opthamlomology History: Reports: Hx Contacts or Glasses - glasses Denies: Hx Cataracts, Hx Eye Injury, Hx Eye Prosthesis, Hx Glaucoma, Hx Legally Blind, Hx Macular Degeneration, Hx Vision Problem, Other Sensory Impairments Neurological History: Reports: Other Neuro Impairments/Disorders - passed out a few times after coughing attack Denies: Hx Dementia, Hx Developmental Delay, Hx Headaches, Hx Migraine, Hx Nerve Disease, Hx Seizures, Hx Spinal Cord Injury, Hx Transient Ischemic Attacks (TIA) Psychiatric History: Denies: Hx Anxiety, Hx Attention Deficit Hyperactivity Disorder, Hx Eating Disorder, Hx Depression, Hx Panic Disorder, Hx Post Traumatic Stress Disorder, Hx Inpatient Treatment, Hx Community Mental Health Tx, Hx Schizophrenia, Hx Bipolar Disorder, Hx Suicide Attempt, Hx of Violent Episodes Against Others, Hx Substance Abuse, Other Psychiatric Issues/Disorders - Cancer History Hx Chemotherapy: No Hx Radiation Therapy: No Hx Palliative Cancer Treatment: No - Surgical History Surgery Procedure, Year, and Place: fistula buttocks,. appendectomy, . kidney stones x3 Hx Anesthesia Reactions: No Infectious Disease History: No Infectious Disease History: Denies: Hx Clostridium Difficile, Hx Hepatitis, Hx Human Immunodeficiency Virus (HIV), Hx of Known/Suspected MRSA, Hx Shingles, Hx Tuberculosis, History Other Infectious Disease, Traveled Outside the [place] in Last 30 Days - Family History Known Family History: Positive: Hypertension Negative: Diabetes - Social History Alcohol Use: Occasionally Alcohol Amount: 2+ cocktails daily Hx Substance Use: No Substance Use Type: Reports: None Hx Tobacco Use: Yes - former smoker Smoking Status (MU): Former Smoker Type: Cigarettes Amount Used/How Often: 5 cigs per day for 45 years Have You Smoked in the Last Year: Yes Review of Systems Positive: Fatigue, Other - Polydipsia, polyuria, generalized malaise. Negative : Fever Negative: Chest Pain Negative: Shortness Of Breath All Other Systems Reviewed And Are Negative: Yes Physical Exam - Summary Physical Exam Summary: General: well-appearing, no pain distress Skin: warm, color reflects adequate perfusion, dry Head: normal Eyes: EOMI, NOEMI ENT: Dry oral mucosa. White patches on his tongue. Neck: supple, nontender Respiratory: CTA, breath sounds present Cardiovascular: RRR Abdomen: soft, nontender Bowel: present Musculoskeletal: normal, strength/ROM intact Neurological: normal, sensory/motor intact, A&O x3 Psychological: affect/mood appropriate Triage Information Reviewed: Yes Vital Signs On Initial Exam: Initial Vitals Temp Pulse Resp BP Pulse Ox 96.7 F 94 24 121/104 94 10/31/17 16:07 10/31/17 16:07 10/31/17 16:07 10/31/17 16:07 10/31/17 16:07 Vital Signs Reviewed: Yes Diagnostics - Vital Signs Vital Signs Temp Pulse Resp BP Pulse Ox 10/31/17 16:07 96.7 F 94 24 121/104 94 - Laboratory Lab Results: Lab Results 10/31/17 10/31/17 10/31/17 Range/Units 16:35 16:35 16:35 WBC (3.5-10.8) 10^3/ul RBC (4.0-5.4) 10^6/ul Hgb (14.0-18.0) g/dl Hct (42-52) % MCV (80-94) fL MCH (27-31) pg MCHC (31-36) g/dl RDW (10.5-15) % Plt Count (150-450) 10^3/ul MPV (7.4-10.4) um3 Neut % (Auto) (38-83) % Lymph % (Auto) (25-47) % Wilkin % (Auto) (0-7) % Eos % (Auto) (0-6) % Baso % (Auto) (0-2) % Absolute Neuts (auto) (1.5-7.7) 10^3/ul Absolute Lymphs (auto) (1.0-4.8) 10^3/ul Absolute Monos (auto) (0-0.8) 10^3/ul Absolute Eos (auto) (0-0.6) 10^3/ul Absolute Basos (auto) (0-0.2) 10^3/ul Absolute Nucleated RBC 10^3/ul Nucleated RBC % INR (Anticoag Therapy) 1.05 H (0.77-1.02) APTT 27.8 (26.0-36.3) seconds VBG pH (7.33-7.43) VBG pCO2 (41-51) mmHg VBG pO2 (35-45) mmHg VBG HCO3 (24-28) mmol/L VBG O2 Saturation (70-80) % VBG Base Excess (0-4) Sodium 127 L (133-145) mmol/L Potassium 3.7 (3.5-5.0) mmol/L Chloride 73 L (101-111) mmol/L Carbon Dioxide 23 (22-32) mmol/L Anion Gap 31 H (2-11) mmol/L BUN 25 H (6-24) mg/dL Creatinine 1.60 H (0.67-1.17) mg/dL Est GFR ( Amer) 55.2 (>60) Est GFR (Non-Af Amer) 42.9 (>60) BUN/Creatinine Ratio 15.6 (8-20) Glucose 999 H* (70-100) mg/dL Lactic Acid (0.5-2.0) mmol/L Calcium 10.2 (8.6-10.3) mg/dL Phosphorus 6.1 H (2.5-5.0) mg/dL Magnesium 2.1 (1.9-2.7) mg/dL Total Bilirubin 0.70 (0.2-1.0) mg/dL AST 14 (13-39) U/L ALT 20 (7-52) U/L Alkaline Phosphatase 90 (34-104) U/L Troponin I 0.02 (<0.04) ng/mL C-Reactive Protein 51.77 H (< 5.00) mg/L B-Natriuretic Peptide 93 ( - 100) pg/mL Total Protein 7.3 (6.4-8.9) g/dL Albumin 3.9 (3.2-5.2) g/dL Globulin 3.4 (2-4) g/dL Albumin/Globulin Ratio 1.1 (1-3) Lipase 19 (11.0-82.0) U/L TSH 1.61 (0.34-5.60) mcIU/mL 10/31/17 10/31/17 10/31/17 Range/Units 16:35 16:35 16:35 WBC 11.1 H (3.5-10.8) 10^3/ul RBC 4.37 (4.0-5.4) 10^6/ul Hgb 14.7 (14.0-18.0) g/dl Hct 45 (42-52) % MCV 102 H (80-94) fL MCH 34 H (27-31) pg MCHC 33 (31-36) g/dl RDW 14 (10.5-15) % Plt Count 247 (150-450) 10^3/ul MPV 9 (7.4-10.4) um3 Neut % (Auto) 86.0 H (38-83) % Lymph % (Auto) 8.1 L (25-47) % Wilkin % (Auto) 5.3 (0-7) % Eos % (Auto) 0 (0-6) % Baso % (Auto) 0.6 (0-2) % Absolute Neuts (auto) 9.6 H (1.5-7.7) 10^3/ul Absolute Lymphs (auto) 0.9 L (1.0-4.8) 10^3/ul Absolute Monos (auto) 0.6 (0-0.8) 10^3/ul Absolute Eos (auto) 0 (0-0.6) 10^3/ul Absolute Basos (auto) 0.1 (0-0.2) 10^3/ul Absolute Nucleated RBC 0 10^3/ul Nucleated RBC % 0 INR (Anticoag Therapy) (0.77-1.02) APTT (26.0-36.3) seconds VBG pH 7.35 (7.33-7.43) VBG pCO2 42 (41-51) mmHg VBG pO2 49 H (35-45) mmHg VBG HCO3 22.6 L (24-28) mmol/L VBG O2 Saturation 85.9 H (70-80) % VBG Base Excess -2.4 L (0-4) Sodium (133-145) mmol/L Potassium (3.5-5.0) mmol/L Chloride (101-111) mmol/L Carbon Dioxide (22-32) mmol/L Anion Gap (2-11) mmol/L BUN (6-24) mg/dL Creatinine (0.67-1.17) mg/dL Est GFR ( Amer) (>60) Est GFR (Non-Af Amer) (>60) BUN/Creatinine Ratio (8-20) Glucose (70-100) mg/dL Lactic Acid 2.6 H* (0.5-2.0) mmol/L Calcium (8.6-10.3) mg/dL Phosphorus (2.5-5.0) mg/dL Magnesium (1.9-2.7) mg/dL Total Bilirubin (0.2-1.0) mg/dL AST (13-39) U/L ALT (7-52) U/L Alkaline Phosphatase (34-104) U/L Troponin I (<0.04) ng/mL C-Reactive Protein (< 5.00) mg/L B-Natriuretic Peptide ( - 100) pg/mL Total Protein (6.4-8.9) g/dL Albumin (3.2-5.2) g/dL Globulin (2-4) g/dL Albumin/Globulin Ratio (1-3) Lipase (11.0-82.0) U/L TSH (0.34-5.60) mcIU/mL Result Diagrams: 10/31/17 16:35 10/31/17 16:35 Lab Statement: Any lab studies that have been ordered have been reviewed, and results considered in the medical decision making process. - Radiology CXR Xray Interpretation: No Acute Changes - Stigmata of obstructive lung disease. No acute pulmonary or cardiac process evident. Dr. Milton has reviewed this report. Radiology Interpretation Completed By: Radiologist Diabetic Course/Dx - Course Course Of Treatment: Medications reviewed. Allergies noted. ADMIT HOSPITALIST. - Diagnoses Provider Diagnoses: Diabetic hyperosmolar non-ketotic state - Critical Care Time Critical Care Time: 30-74 min Discharge - Discharge Plan Condition: Stable Disposition: ADMITTED TO [facility] Referrals: Lluvia Stevens, CRUISE COUNSELOR [Primary Care Provider] - The documentation as recorded by the Dyllan nuñez Thomas accurately reflects the service I personally performed and the decisions made by me, Noah Milton MD.
[2017-10-31] MEDS ORDERED: Nicotine Patch Removal NOTE FOLLOW UP SCH (21:00)
[2017-10-31 21:08] LABS: EGFR Non-African American 46.6 (>60)
[2017-10-31 21:23] LABS: Urine Appearance Clear; Urine Blood Negative (Negative); Urine Color Straw; Urine Ketones 2+ (Negative); Urine Protein Negative (Negative); Urine Specific Gravity 1.026 (1.010-1.030); Urine Urobilinogen Negative (Negative)
[2017-10-31] MEDS ORDERED: cefTRIAXone(*) 1 GM in NS 0.9% 50 ML* 50 ML IVPB SCH (21:30)
[2017-10-31] MEDS ORDERED: Azithromycin IV(*) 500 MG in D5W 250 ML BAG* 250 ML IVPB SCH (22:00)
[2017-10-31] MEDS: Atorvastatin* 10 MG TAB PO SCH (22:59)
[2017-10-31] MEDS: Heparin VIAL(*) 5000 UNITS/ML VIAL (FIVE THOUSAND) SUBCUT SCH (23:00)
[2017-10-31] MEDS ORDERED: Potassium Chloride IV* 40 MEQ in NS 0.9% 250 ML* 250 ML IVPB ONE (23:00)
[2017-10-31] MEDS: Clotrimazole TROCHE* 10 MG TROCHE PO SCH (23:00)
[2017-10-31] MEDS ORDERED: KCL 20 MEQ/100 ML IVPREMIX* 20 MEQ/100 ML BAG IV SCH (23:00)
[2017-11-01 02:16] LABS: EGFR Non-African American 63.5 (>60)
[2017-11-01] MEDS ORDERED: Potassium Chlor TAB* 20 MEQ TAB.ER PO ONE (02:31)
[2017-11-01] MEDS: Insulin REGULAR IVPB 100 UNITS/100 ML UNIT IVPB ONE (02:36)
[2017-11-01] MEDS ORDERED: D5NS 0.9% 1000 ML BAG* 1,000 ML IV SCH (03:15)
[2017-11-01 04:11] LABS: EGFR Non-African American 67.6 (>60)
[2017-11-01] MEDS ORDERED: Magnesium Sulfate 2 GM IV* 2 GM/50 ML BAG IVPB ONE (04:35)
[2017-11-01] MEDS ORDERED: NS 0.9% 1000 ML* 1,000 ML IV SCH (05:00)
--- NOTE | 2017-11-01 05:20 | HP ---
CC: Lluvia Stevens NP * ADMISSION HISTORY AND PHYSICAL: DATE OF ADMISSION: 10/31/17 PRIMARY CARE PROVIDER: Lluvia Stevens NP. MY ATTENDING WHILE IN THE HOSPITAL: Isacc Blandon MD.* (DICTATED BY ANGEL GARCIA) CHIEF COMPLAINT: Weakness, confusion, elevated blood sugar. HISTORY OF PRESENT ILLNESS: Mr. Taylor is a 72-year-old male with past medical history significant for diabetes mellitus type 2, COPD, hypertension, and hyperlipidemia, who presents with about 3 weeks of feeling poor, 2 weeks of dizziness, confusion, 2 weeks of polyuria with polydipsia, and 1 week of hypoxia with productive cough for green sputum. The patient states that after he was discharged from the hospital on 09/29/17, he felt pretty well, but over the next week or so he started to feel off again. He states that his urine significantly increased, clear color. He drinks about 15 glasses of water a day , but also drinks significant amounts of regular soda, including Mountain Dew. The patient has been unable to sleep due to polyuria. The patient states that it occasionally hurts when he urinates, but denies any cloudiness or hematuria. The patient's significant other, who is present at the time of examination, states that he has been confused over the past week with repeating himself repeatedly. The patient also states that he has had nausea and vomiting for the past couple of days. No blood in his vomit. The patient denies any abdominal pain, but states that he has not had a bowel movement in a couple of days. The patient states he did have severe abdominal pain when he took metformin approximately a week ago. He stopped taking it for several days and then started it again without complications. The patient previously had been well controlled on his antihyperglycemic therapy with his hemoglobin A1c being 6.6 on 09/08/17. The patient denies chest pain. The patient has shortness of breath, productive cough. The patient states that he was exposed to his sister who had an upper respiratory infection, but no other sick contacts. The patient denies having weakness previously with respiratory infection. The patient was admitted to this hospital twice this year already for COPD exacerbation and pneumonia. The patient was sent in today by his primary care provider due to blood work showing extremely elevated blood sugar at 999, as well as an elevated lactic acid. The patient, in the emergency department, was found to have low sodium, high anion gap, high BUN and creatinine, with normal blood pH, with high pO2, low CO3 and negative base excess. The patient also had an elevated CRP. The patient denies any other associated symptoms. The patient likely has hyperosmolar hyperglycemic nonketotic state and has no acidosis. So , we were asked to evaluate for admission. PAST MEDICAL HISTORY: Diabetes mellitus type 2, COPD, hypertension, hyperlipidemia, obesity, BPH, MYRON, on CPAP, nephrolithiasis, and anal fissure. PAST SURGICAL HISTORY: Appendectomy and vasectomy. MEDICATIONS: 1. Zocor 10 mg p.o. at bedtime. 2. Hydrochlorothiazide 25 mg p.o. daily. 3. Albuterol 2 puffs q.4 hours as needed for wheezing. 4. Flomax 0.4 mg p.o. daily. 5. Advil PM 1 cap p.o. at bedtime. 6. Breo Ellipta 100/25, one puff inhalation q.a.m. 7. Multivitamin 1 tab p.o. daily. 8. Incruse Ellipta 62.5 mcg inhalation daily. 9. Metformin 500 mg p.o. daily. 10. Nicotine gum 2 mg p.o. q.2 hours as needed. 11. Nicotine patch 14 mg transdermal daily. ALLERGIES: OXYCODONE. FAMILY HISTORY: The patient's mother had CVA. The patient's father had colon cancer. The patient has no other significant past family history. SOCIAL HISTORY: The patient was a smoker up until last month, is attempting to quit and has not had a cigarette recently, 25 days exactly. The patient has 50 - year-pack history of smoking. The patient drinks 2 to 3 alcoholic beverages a day. 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 His partner, Jes Astorga, and his son, Sigifredo Taylor, will be his healthcare proxies. REVIEW OF SYSTEMS: A 14-point review of systems was reviewed and is negative, except as above. PHYSICAL EXAMINATION GENERAL: The patient is a 72-year-old male, who appears his stated age, and is sitting comfortably in the bed, in no acute distress. VITAL SIGNS: At the time of admission, temperature 97.6, pulse rate 94, respiratory rate 24, oxygen saturation 94% on 2 L, blood pressure 121/104. HEENT: Head normocephalic, atraumatic. Sclerae anicteric. No conjunctival injection. Nasal mucosa is dry. Oral mucosa is dry. The patient has erythema and plaques consistent with thrush. NECK: Supple, nontender. No lymphadenopathy. No JVD. No carotid bruits auscultated. CARDIAC: Tachycardic. No clicks, murmurs, gallops, or rubs. Pulses 2+ in the bilateral dorsalis pedis, posterior tibialis, and radial areas. No bilateral lower extremity edema noted. There are venous stasis ulcers in the bilateral lower extremities. GENITOURINARY: No suprapubic or CVA tenderness. SKIN: Clean, dry, and intact. No rash, except for the above mentioned venous stasis ulcers. NEUROLOGIC: Cranial nerves II through XII intact. The patient is alert and oriented x3. No signs of confusion. No focal deficits. PSYCHIATRIC: Pleasant and cooperative. LABORATORY DATA: White blood cell count 11.1, hemoglobin 14.7, MCV 102, MCH 34 , and platelet count 247. INR 1.05, APTT 27.8. VBG pH 7.5, VBG pCO2 of 42, pO2 of 49, HCO3 of 22.6, oxygen saturation 85.9, VBG base excess 92.4. Sodium 127, potassium 3.7, chloride 73, carbon dioxide 23, anion gap 31, BUN 25, creatinine 0.16, glucose 999, lactic acid 2.6, calcium 10.2, phosphorus pending , magnesium 2.1, total bilirubin 0.7, AST 14, ALT 20, alkaline phosphatase 90. Troponin-I of 0.02. CRP 51.77. BNP 93. Total protein 7.3, albumin 3.9, globulin 3.4, lipase 19. TSH 1.61. DIAGNOSTIC STUDIES: Chest x-ray read as mild obstructive disease. No acute pulmonary or cardiac process evident. ASSESSMENT AND PLAN: Mr. Taylor is a 72-year-old male, with past medical history significant for diabetes mellitus, non-insulin dependent, chronic obstructive pulmonary disease, who presents today with nonketotic hyperosmolar hyperglycemic state, with confusion as well as signs of an upper respiratory infection, as well as an elevated CRP. The patient will be admitted to the hospital for insulin drip, aggressive fluid resuscitation, and antibiotics for empiric community-acquired pneumonia treatment. 1. Hyperosmolar hyperglycemic state. The patient has had elevated blood sugar for an unknown period of time. It was only slightly elevated when the patient was here last time. The patient has been on steroids for 18 days after September 29. The patient also stopped taking his metformin for several days before coming in, due to abdominal pain. The patient will be started on an insulin drip, which is running at 0.1 units/kg per hour. At this time, the patient has received 2 liters of normal saline in the emergency department. The patient will be continued on sodium chloride, one-half normal saline; patient's sodium corrects to normal range. The patient has a chloride of 73. The patient has a normal blood pH. This anion gap is likely to due to dilution from patient's hyperglycemia causing a low chloride ion concentration as opposed to ketosis as the patient is not acidotic. Urine is pending to further elucidate this. The patient has no fruity smell on his breath or abdominal pain or other signs of diabetic ketoacidosis. The patient has phosphorus level pending. The patient will be admitted to the ICU. The patient has BMP pending and q.1 hour fingersticks. 2. Chronic obstructive pulmonary disease, respiratory infection. The patient does not appear to be in a current chronic obstructive pulmonary disease exacerbation. The patient's lung exam is benign. However, the patient has been producing significant amounts of green sputum and is hypoxic. The patient has no signs of consolidation on chest x-ray. We will not treat with steroids at this time. We will treat empirically for community-acquired pneumonia at this point as the patient's immune response may be modulated. The patient has elevated pulse rate, normal temperatures. We will order a procalcitonin and tailor antibiotic regimen based on this, with a flu swab and treat with Tamiflu if applicable. Continue the patient's home inhalers. 3. Hypertension. Hold the patient's hydrochlorothiazide due to diuretic effect. The patient is normotensive at this time. Continue tamsulosin. 4. Hyperlipidemia. Continue the patient's Zocor. 5. Fluids, electrolytes, and nutrition. The patient will have aggressive fluids. The patient currently has one-half normal saline running at 250 mL an hour. The patient will have a consistent carbohydrate diet. 6. Tobacco abuse. The patient will have nicotine gum and nicotine patch for smoking cessation and cravings while he is in the hospital. 7. Benign prostatic hypertrophy. Continue Flomax. 8. Obstructive sleep apnea. Continue the patient's CPAP while in the hospital. The patient has his own CPAP available. 9. Code status. The patient would like to be a full code. The patient's surrogate decision maker are his friend, Jes Astorga, and his son, Sigifredo Taylor, as above. 10. DVT prophylaxis. The patient is at high risk. The patient will be on heparin subcu and SCDs while in the hospital. 11. Disposition. The patient will be admitted to ICU on a heparin drip. TIME SPENT: Approximately 60 minutes were spent on this admission, 30 of which was spent [id number] with the patient obtaining history and physical and discussing the treatment plan. The plan was discussed with my attending, Dr. Isacc Blandon, and he is in agreement. ANGEL GARCIA [id number]/[facility] #: [id number] [place]
[2017-11-01] MEDS: Clotrimazole TROCHE* 10 MG TROCHE PO SCH ×5 (06:07→21:36)
[2017-11-01] MEDS: Heparin VIAL(*) 5000 UNITS/ML VIAL (FIVE THOUSAND) SUBCUT SCH ×3 (06:07→21:41)
[2017-11-01 06:28] LABS: Hematocrit 36 % (42-52); Hemoglobin 12.5 g/dl (14.0-18.0); Mean Corpuscular HGB Conc 35 g/dl (31-36); Mean Corpuscular Hemoglobin 33 pg (27-31); Mean Corpuscular Volume 96 fL (80-94); Mean Platelet Volume 8 um3 (7.4-10.4); Platelet Count 204 10^3/ul (150-450); Red Blood Count 3.76 10^6/ul (4.0-5.4); Red Cell Distribution Width 14 % (10.5-15); White Blood Count 11.5 10^3/ul (3.5-10.8)
[2017-11-01 06:43] LABS: EGFR Non-African American 70.6 (>60)
[2017-11-01 07:29] LABS: ABS Basophils 0.1 10^3/ul (0-0.2); ABS Eosinophils 0.1 10^3/ul (0-0.6); ABS Lymphocytes 1.9 10^3/ul (1.0-4.8); ABS Neutrophils 8.4 10^3/ul (1.5-7.7); ABS Nucleated RBC 0 10^3/ul; Eosinophil % 0.5 % (0-6); Lymphocyte % 16.4 % (25-47); Nucleated Red Blood Cells % 0
[2017-11-01] MEDS ORDERED: Insulin LISPRO* 1 UNITS UNIT SUBCUT SCH ×4 (07:30→11:23)
[2017-11-01] MEDS ORDERED: Fluticasone/Vilanterol MDI(NF) 100/25 MDI INH SCH (09:00)
[2017-11-01] MEDS ORDERED: Nicotine PATCH 14 MG/24 HR* PATCH TRANSDERM SCH (09:00)
--- NOTE | 2017-11-01 11:17 | PN ---
Subjective Date of Service: 11/01/17 Interval History: pt feels much better. noted that for the past 2 weeks had been feeling "dehydrated". Had abd pain 2 weeks ago and stooped metformin. restarted it 4 day prior to this admission. Abd pain di not recurr, but pt c/o numb feet and blurry vision that is improving Objective Active Medications: Albuterol/Ipratropium (Duoneb (Albuterol 2.5 Mg/Ipratropium 0.5 Mg)) 1 neb INH Q4H PRN PRN Reason: SOB/WHEEZING Atorvastatin Calcium (Lipitor*) 5 mg PO BEDTIME [facility] Last Admin: 10/31/17 22:59 Dose: 5 mg Clotrimazole (Mycelex Luis*) 10 mg PO FIVE TIMES DAILY [facility] Last Admin: 11/01/17 10:06 Dose: 10 mg Fluticasone/Vilanterol (Breo Ellipta Mdi 100/25(Nf)) 1 puff INH QAM [facility] Last Admin: 11/01/17 09:48 Dose: Not Given Heparin Sodium (Porcine) (Heparin Vial(*)) 5,000 units SUBCUT Q8HR [facility] Last Admin: 11/01/17 06:07 Dose: 5,000 units Azithromycin 500 mg/ Dextrose 250 mls @ 250 mls/hr IVPB Q24H [facility] Last Admin: 10/31/17 23:21 Dose: 250 mls/hr Sodium Chloride (Ns 0.45% 1000 Ml Bag*) 1,000 mls @ 250 mls/hr IV PER RATE [facility] Last Admin: 10/31/17 22:22 Dose: 250 mls/hr Sodium Chloride (Ns 0.9% 1000 Ml*) 1,000 mls @ 150 mls/hr IV PER RATE [facility] Last Admin: 11/01/17 05:05 Dose: 150 mls/hr Insulin Glargine (Lantus(*)) 28 units 0.24 units/kg (28 units) SUBCUT 2100 [facility] Stop: 11/02/17 20:00 Insulin Human Lispro (Humalog*) 0 units SUBCUT AC [facility] PRN Reason: Protocol Last Admin: 11/01/17 09:46 Dose: 4 units Insulin Human Lispro (Humalog*) 0 units SUBCUT ACHS [facility] PRN Reason: Protocol Last Admin: 11/01/17 09:47 Dose: 15 unit Nicotine (Nicotine Patch 14 Mg/24 Hr*) 1 patch TRANSDERM DAILY [facility] Last Admin: 11/01/17 09:48 Dose: Not Given Nicotine Polacrilex (Nicotine Gum*) 2 mg PO Q2H PRN PRN Reason: CRAVING Pharmacy Profile Note (Nicotine Patch Removal Note*) 1 note FOLLOW UP 2100 [facility] Last Admin: 10/31/17 23:35 Dose: Not Given Tamsulosin HCl (Flomax Cap*) 0.4 mg PO QPM [facility] Vital Signs - 8 hr 11/01/17 11/01/17 11/01/17 04:00 04:18 05:00 Temperature 98.3 F Pulse Rate 83 96 78 Respiratory 22 24 22 Rate Blood Pressure 113/66 101/67 (mmHg) O2 Sat by Pulse 93 94 95 Oximetry 11/01/17 11/01/17 11/01/17 06:00 07:00 07:56 Temperature 97.4 F Pulse Rate 69 71 Respiratory 25 20 Rate Blood Pressure 103/61 108/66 (mmHg) O2 Sat by Pulse 94 94 Oximetry 11/01/17 11/01/17 11/01/17 08:00 09:00 10:00 Temperature Pulse Rate 86 78 78 Respiratory 24 24 20 Rate Blood Pressure 124/71 104/64 98/58 (mmHg) O2 Sat by Pulse 94 95 95 Oximetry Oxygen Devices in Use Now: Nasal Cannula - at 2L Appearance: 72 yo M in nAd, AAOx3, poor historian Eyes: No Scleral Icterus, PERRLA Ears/Nose/Mouth/Throat: NL Teeth, Lips, Gums, Mucous Membranes Moist Neck: Trachea Midline Respiratory: Symmetrical Chest Expansion and Respiratory Effort, - - decreased breath sounds at b/l bases Cardiovascular: NL Sounds; No Murmurs; No JVD, RRR Abdominal: NL Sounds; No Tenderness; No Distention, No Hepatosplenomegaly Lymphatic: No Cervical Adenopathy Extremities: No Edema, No Clubbing, Cyanosis Skin: No Rash or Ulcers, No Nodules or Sclerosis Neurological: Alert and Oriented x 3, NL Muscle Strength and Tone Result Diagrams: 11/01/17 06:15 11/01/17 06:15 Additional Lab and Data: Lab Results 10/31/17 10/31/17 10/31/17 Range/Units 16:35 16:35 16:35 WBC (3.5-10.8) 10^3/ul RBC (4.0-5.4) 10^6/ul Hgb (14.0-18.0) g/dl Hct (42-52) % MCV (80-94) fL MCH (27-31) pg MCHC (31-36) g/dl RDW (10.5-15) % Plt Count (150-450) 10^3/ul MPV (7.4-10.4) um3 Neut % (Auto) (38-83) % Lymph % (Auto) (25-47) % [place] % (Auto) (0-7) % Eos % (Auto) (0-6) % Baso % (Auto) (0-2) % Absolute Neuts (auto) (1.5-7.7) 10^3/ul Absolute Lymphs (auto) (1.0-4.8) 10^3/ul Absolute Monos (auto) (0-0.8) 10^3/ul Absolute Eos (auto) (0-0.6) 10^3/ul Absolute Basos (auto) (0-0.2) 10^3/ul Absolute Nucleated RBC 10^3/ul Nucleated RBC % INR (Anticoag Therapy) 1.05 H (0.77-1.02) APTT 27.8 (26.0-36.3) seconds VBG pH (7.33-7.43) VBG pCO2 (41-51) mmHg VBG pO2 (35-45) mmHg VBG HCO3 (24-28) mmol/L VBG O2 Saturation (70-80) % VBG Base Excess (0-4) Sodium 127 L (133-145) mmol/L Potassium 3.7 (3.5-5.0) mmol/L Chloride 73 L (101-111) mmol/L Carbon Dioxide 23 (22-32) mmol/L Anion Gap 31 H (2-11) mmol/L BUN 25 H (6-24) mg/dL Creatinine 1.60 H (0.67-1.17) mg/dL Est GFR ( Amer) 55.2 (>60) Est GFR (Non-Af Amer) 42.9 (>60) BUN/Creatinine Ratio 15.6 (8-20) Glucose 999 H* (70-100) mg/dL Lactic Acid (0.5-2.0) mmol/L Calcium 10.2 (8.6-10.3) mg/dL Phosphorus 6.1 H (2.5-5.0) mg/dL Magnesium 2.1 (1.9-2.7) mg/dL Total Bilirubin 0.70 (0.2-1.0) mg/dL AST 14 (13-39) U/L ALT 20 (7-52) U/L Alkaline Phosphatase 90 (34-104) U/L Troponin I 0.02 (<0.04) ng/mL C-Reactive Protein 51.77 H (< 5.00) mg/L B-Natriuretic Peptide 93 ( - 100) pg/mL Total Protein 7.3 (6.4-8.9) g/dL Albumin 3.9 (3.2-5.2) g/dL Globulin 3.4 (2-4) g/dL Albumin/Globulin Ratio 1.1 (1-3) Lipase 19 (11.0-82.0) U/L TSH 1.61 (0.34-5.60) mcIU/mL 10/31/17 10/31/17 10/31/17 Range/Units 16:35 16:35 16:35 WBC 11.1 H (3.5-10.8) 10^3/ul RBC 4.37 (4.0-5.4) 10^6/ul Hgb 14.7 (14.0-18.0) g/dl Hct 45 (42-52) % MCV 102 H (80-94) fL MCH 34 H (27-31) pg MCHC 33 (31-36) g/dl RDW 14 (10.5-15) % Plt Count 247 (150-450) 10^3/ul MPV 9 (7.4-10.4) um3 Neut % (Auto) 86.0 H (38-83) % Lymph % (Auto) 8.1 L (25-47) % [place] % (Auto) 5.3 (0-7) % Eos % (Auto) 0 (0-6) % Baso % (Auto) 0.6 (0-2) % Absolute Neuts (auto) 9.6 H (1.5-7.7) 10^3/ul Absolute Lymphs (auto) 0.9 L (1.0-4.8) 10^3/ul Absolute Monos (auto) 0.6 (0-0.8) 10^3/ul Absolute Eos (auto) 0 (0-0.6) 10^3/ul Absolute Basos (auto) 0.1 (0-0.2) 10^3/ul Absolute Nucleated RBC 0 10^3/ul Nucleated RBC % 0 INR (Anticoag Therapy) (0.77-1.02) APTT (26.0-36.3) seconds VBG pH 7.35 (7.33-7.43) VBG pCO2 42 (41-51) mmHg VBG pO2 49 H (35-45) mmHg VBG HCO3 22.6 L (24-28) mmol/L VBG O2 Saturation 85.9 H (70-80) % VBG Base Excess -2.4 L (0-4) Sodium (133-145) mmol/L Potassium (3.5-5.0) mmol/L Chloride (101-111) mmol/L Carbon Dioxide (22-32) mmol/L Anion Gap (2-11) mmol/L BUN (6-24) mg/dL Creatinine (0.67-1.17) mg/dL Est GFR ( Amer) (>60) Est GFR (Non-Af Amer) (>60) BUN/Creatinine Ratio (8-20) Glucose (70-100) mg/dL Lactic Acid 2.6 H* (0.5-2.0) mmol/L Calcium (8.6-10.3) mg/dL Phosphorus (2.5-5.0) mg/dL Magnesium (1.9-2.7) mg/dL Total Bilirubin (0.2-1.0) mg/dL AST (13-39) U/L ALT (7-52) U/L Alkaline Phosphatase (34-104) U/L Troponin I (<0.04) ng/mL C-Reactive Protein (< 5.00) mg/L B-Natriuretic Peptide ( - 100) pg/mL Total Protein (6.4-8.9) g/dL Albumin (3.2-5.2) g/dL Globulin (2-4) g/dL Albumin/Globulin Ratio (1-3) Lipase (11.0-82.0) U/L TSH (0.34-5.60) mcIU/mL Microbiology and Other Data: Microbiology 10/31/17 22:14 Nasal Screen MRSA (PCR)([facility]) - Final Nasal Mrsa Not Detected 10/31/17 20:39 Influenza Types A,B Antigen ([facility]) - Final Nasal Specimen received for Influenza A/B Molecular testing Assess/Plan/Problems-Billing Assessment: 72 yo M with h/o COPD recently diagnosed DM, who had ab pain 2 weeks ago and stopped taking metformin when on prednisone for COPD exacerbation , admitted with BG of 999 - Patient Problems (1) Hyperosmolar non-ketotic state in patient with type 2 diabetes mellitus Comment: BG in 200-300 now. will start Lantus and restart metforin. Insulin gtt discontinued last night Will ask DM educator to see pt since pt is not aware of how to use a glucometer and doesn't own one. DM nutrition education ordered also will stop IVF-appears euvolemic (2) URI (upper respiratory infection) Comment: coint Azithromycin, will change to PO (3) COPD (chronic obstructive pulmonary disease) Comment: not in exacerbation, on dulera and Albuterol when at hospital, Devika Gomez as outpatient (4) DVT prophylaxis Comment: SQ heparin (5) HTN (hypertension) Comment: hctz 25mg - will restart in AM normotensive (6) MYRON (obstructive sleep apnea) Comment: Continue home CPAP use. Status and Disposition: inpatient
[2017-11-01] MEDS ORDERED: metFORMIN* 500 MG TAB PO ONE (11:21)
[2017-11-01] MEDS ORDERED: Albuterol HFA INHALER* 8 gm MDI INH PRN (11:24)
[2017-11-01] MEDS ORDERED: Insulin GLARGINE(*) 1 UNITS UNIT SUBCUT SCH ×2 (12:00→21:00)
[2017-11-01] MEDS: Mometasone/Formoter 100/5 MDI INH SCH ×2 (12:25→19:53)
[2017-11-01 13:12] LABS: EGFR Non-African American 66.2 (>60)
[2017-11-01] MEDS ORDERED: Dextrose 50% Syringe 50 ML* 25 GM/50 ML SYRINGE IV PUSH PRN (13:40)
[2017-11-01] MEDS ORDERED: Insulin GLARGINE(*) 1 UNITS UNIT SUBCUT ONE (13:41)
[2017-11-01] MEDS: Insulin LISPRO* 1 UNITS UNIT SUBCUT SCH ×2 (13:56→18:24)
[2017-11-01] MEDS: Tamsulosin CAP* 0.4 MG PO SCH (17:23)
[2017-11-01] MEDS: metFORMIN* 500 MG TAB PO SCH (17:23)
[2017-11-01] MEDS: Atorvastatin* 10 MG TAB PO SCH (21:41)
[2017-11-01] MEDS: Azithromycin TAB* 250 MG PO SCH (21:41)
[2017-11-02] MEDS: Heparin VIAL(*) 5000 UNITS/ML VIAL (FIVE THOUSAND) SUBCUT SCH ×3 (05:46→20:50)
[2017-11-02] MEDS: Clotrimazole TROCHE* 10 MG TROCHE PO SCH ×5 (05:47→20:49)
[2017-11-02] MEDS: Azithromycin TAB* 250 MG PO SCH (09:21)
[2017-11-02] MEDS: metFORMIN* 500 MG TAB PO SCH ×2 (09:21→17:40)
[2017-11-02] MEDS: Insulin LISPRO* 1 UNITS UNIT SUBCUT SCH ×3 (09:36→17:40)
[2017-11-02] MEDS: Mometasone/Formoter 100/5 MDI INH SCH ×2 (09:52→19:55)
[2017-11-02] MEDS: Albuterol/Ipratropium NEB.SOL* Albuterol 2.5 MG/Ipratropium 0.5 MG 3 ML INH SCH ×2 (11:01→19:55)
[2017-11-02] MEDS ORDERED: Insulin GLARGINE(*) 1 UNITS UNIT SUBCUT SCH ×3 (12:00→18:00)
--- NOTE | 2017-11-02 17:10 | PN ---
Subjective Date of Service: 11/02/17 Interval History: no overnight events, feels good this morning, no complaints. feels breathing is much better, anxious to go for a walk today. Family History: Unchanged from Admission Social History: Unchanged from Admission Objective Active Medications: Albuterol (Ventolin Hfa Inhaler*) 2 puff INH Q4H PRN PRN Reason: wheezing Albuterol/Ipratropium (Duoneb (Albuterol 2.5 Mg/Ipratropium 0.5 Mg)) 1 neb INH [id number] AWAKE [facility] Last Admin: 11/02/17 11:01 Dose: Not Given Atorvastatin Calcium (Lipitor*) 5 mg PO BEDTIME [facility] Last Admin: 11/01/17 21:41 Dose: 5 mg Azithromycin (Zithromax Tab*) 250 mg PO DAILY [facility] Last Admin: 11/02/17 09:21 Dose: 250 mg Clotrimazole (Mycelex Luis*) 10 mg PO FIVE TIMES DAILY [facility] Last Admin: 11/02/17 15:39 Dose: 10 mg Dextrose (D50w Syringe 50 Ml*) 12.5 gm IV PUSH .FOR FS < 60 - SS PRN PRN Reason: FS < 60 Heparin Sodium (Porcine) (Heparin Vial(*)) 5,000 units SUBCUT Q8HR [facility] Last Admin: 11/02/17 15:39 Dose: 5,000 units Insulin Glargine (Lantus(*)) 20 units SUBCUT Q24H [facility] Last Admin: 11/02/17 12:52 Dose: 20 units Insulin Human Lispro (Humalog*) 0 units SUBCUT AC [facility] PRN Reason: Protocol Last Admin: 11/02/17 12:53 Dose: 15 unit Metformin HCl (Glucophage*) 500 mg PO 0800,1700 [facility] Last Admin: 11/02/17 09:21 Dose: 500 mg Mometasone Furoate/Formoterol Fumar (Dulera 100/5 Mdi*) 2 puff INH BID [facility] Last Admin: 11/02/17 09:52 Dose: 2 puff Tamsulosin HCl (Flomax Cap*) 0.4 mg PO QPM [facility] Last Admin: 11/01/17 17:23 Dose: 0.4 mg Vital Signs - 8 hr 11/02/17 11/02/17 09:52 11:19 Temperature 98.2 F Pulse Rate 80 86 Respiratory 18 Rate Blood Pressure 119/63 (mmHg) O2 Sat by Pulse 96 Oximetry Oxygen Devices in Use Now: Nasal Cannula Appearance: alert, well appearing, able to speak in full sentences Eyes: No Scleral Icterus Ears/Nose/Mouth/Throat: NL Teeth, Lips, Gums Neck: NL Appearance and Movements; NL JVP Respiratory: Symmetrical Chest Expansion and Respiratory Effort, - - no wheezes or rhonchi Cardiovascular: - - systolic murmur RUSB Abdominal: NL Sounds; No Tenderness; No Distention Lymphatic: No Cervical Adenopathy Extremities: No Edema Skin: No Rash or Ulcers Neurological: Alert and Oriented x 3 Result Diagrams: 11/01/17 06:15 11/01/17 12:49 Additional Lab and Data: Lab Results 10/31/17 10/31/17 10/31/17 Range/Units 16:35 16:35 16:35 WBC (3.5-10.8) 10^3/ul RBC (4.0-5.4) 10^6/ul Hgb (14.0-18.0) g/dl Hct (42-52) % MCV (80-94) fL MCH (27-31) pg MCHC (31-36) g/dl RDW (10.5-15) % Plt Count (150-450) 10^3/ul MPV (7.4-10.4) um3 Neut % (Auto) (38-83) % Lymph % (Auto) (25-47) % [place] % (Auto) (0-7) % Eos % (Auto) (0-6) % Baso % (Auto) (0-2) % Absolute Neuts (auto) (1.5-7.7) 10^3/ul Absolute Lymphs (auto) (1.0-4.8) 10^3/ul Absolute Monos (auto) (0-0.8) 10^3/ul Absolute Eos (auto) (0-0.6) 10^3/ul Absolute Basos (auto) (0-0.2) 10^3/ul Absolute Nucleated RBC 10^3/ul Nucleated RBC % INR (Anticoag Therapy) 1.05 H (0.77-1.02) APTT 27.8 (26.0-36.3) seconds VBG pH (7.33-7.43) VBG pCO2 (41-51) mmHg VBG pO2 (35-45) mmHg VBG HCO3 (24-28) mmol/L VBG O2 Saturation (70-80) % VBG Base Excess (0-4) Sodium 127 L (133-145) mmol/L Potassium 3.7 (3.5-5.0) mmol/L Chloride 73 L (101-111) mmol/L Carbon Dioxide 23 (22-32) mmol/L Anion Gap 31 H (2-11) mmol/L BUN 25 H (6-24) mg/dL Creatinine 1.60 H (0.67-1.17) mg/dL Est GFR ( Amer) 55.2 (>60) Est GFR (Non-Af Amer) 42.9 (>60) BUN/Creatinine Ratio 15.6 (8-20) Glucose 999 H* (70-100) mg/dL Lactic Acid (0.5-2.0) mmol/L Calcium 10.2 (8.6-10.3) mg/dL Phosphorus 6.1 H (2.5-5.0) mg/dL Magnesium 2.1 (1.9-2.7) mg/dL Total Bilirubin 0.70 (0.2-1.0) mg/dL AST 14 (13-39) U/L ALT 20 (7-52) U/L Alkaline Phosphatase 90 (34-104) U/L Troponin I 0.02 (<0.04) ng/mL C-Reactive Protein 51.77 H (< 5.00) mg/L B-Natriuretic Peptide 93 ( - 100) pg/mL Total Protein 7.3 (6.4-8.9) g/dL Albumin 3.9 (3.2-5.2) g/dL Globulin 3.4 (2-4) g/dL Albumin/Globulin Ratio 1.1 (1-3) Lipase 19 (11.0-82.0) U/L TSH 1.61 (0.34-5.60) mcIU/mL 10/31/17 10/31/17 10/31/17 Range/Units 16:35 16:35 16:35 WBC 11.1 H (3.5-10.8) 10^3/ul RBC 4.37 (4.0-5.4) 10^6/ul Hgb 14.7 (14.0-18.0) g/dl Hct 45 (42-52) % MCV 102 H (80-94) fL MCH 34 H (27-31) pg MCHC 33 (31-36) g/dl RDW 14 (10.5-15) % Plt Count 247 (150-450) 10^3/ul MPV 9 (7.4-10.4) um3 Neut % (Auto) 86.0 H (38-83) % Lymph % (Auto) 8.1 L (25-47) % [place] % (Auto) 5.3 (0-7) % Eos % (Auto) 0 (0-6) % Baso % (Auto) 0.6 (0-2) % Absolute Neuts (auto) 9.6 H (1.5-7.7) 10^3/ul Absolute Lymphs (auto) 0.9 L (1.0-4.8) 10^3/ul Absolute Monos (auto) 0.6 (0-0.8) 10^3/ul Absolute Eos (auto) 0 (0-0.6) 10^3/ul Absolute Basos (auto) 0.1 (0-0.2) 10^3/ul Absolute Nucleated RBC 0 10^3/ul Nucleated RBC % 0 INR (Anticoag Therapy) (0.77-1.02) APTT (26.0-36.3) seconds VBG pH 7.35 (7.33-7.43) VBG pCO2 42 (41-51) mmHg VBG pO2 49 H (35-45) mmHg VBG HCO3 22.6 L (24-28) mmol/L VBG O2 Saturation 85.9 H (70-80) % VBG Base Excess -2.4 L (0-4) Sodium (133-145) mmol/L Potassium (3.5-5.0) mmol/L Chloride (101-111) mmol/L Carbon Dioxide (22-32) mmol/L Anion Gap (2-11) mmol/L BUN (6-24) mg/dL Creatinine (0.67-1.17) mg/dL Est GFR ( Amer) (>60) Est GFR (Non-Af Amer) (>60) BUN/Creatinine Ratio (8-20) Glucose (70-100) mg/dL Lactic Acid 2.6 H* (0.5-2.0) mmol/L Calcium (8.6-10.3) mg/dL Phosphorus (2.5-5.0) mg/dL Magnesium (1.9-2.7) mg/dL Total Bilirubin (0.2-1.0) mg/dL AST (13-39) U/L ALT (7-52) U/L Alkaline Phosphatase (34-104) U/L Troponin I (<0.04) ng/mL C-Reactive Protein (< 5.00) mg/L B-Natriuretic Peptide ( - 100) pg/mL Total Protein (6.4-8.9) g/dL Albumin (3.2-5.2) g/dL Globulin (2-4) g/dL Albumin/Globulin Ratio (1-3) Lipase (11.0-82.0) U/L TSH (0.34-5.60) mcIU/mL Microbiology and Other Data: Microbiology 10/31/17 22:14 Nasal Screen MRSA (PCR)([facility]) - Final Nasal Mrsa Not Detected 10/31/17 20:39 Influenza Types A,B Antigen ([facility]) - Final Nasal Specimen received for Influenza A/B Molecular testing Assess/Plan/Problems-Billing Assessment: 72 yo M with h/o COPD recently diagnosed DM, who had ab pain 2 weeks ago and stopped taking metformin when on prednisone for COPD exacerbation , admitted with BG of 999 - Patient Problems (1) Hyperosmolar non-ketotic state in patient with type 2 diabetes mellitus Current Visit: Yes Status: Acute Code(s): E11.01 - TYPE 2 DIABETES MELLITUS WITH HYPEROSMOLARITY WITH COMA SNOMED Code(s): 575429952 Comment: resolved but still poorly controlled on lantus 20U last night + metformin 500mg bid A1c >12 will add glipizide today and increase lantus needs DM educator for teaching about glucometer and injections DM nutrition education ordered also (2) COPD (chronic obstructive pulmonary disease) Current Visit: Yes Status: Acute Code(s): J44.9 - CHRONIC OBSTRUCTIVE PULMONARY DISEASE, UNSPECIFIED SNOMED Code(s): 53180143 Comment: not in exacerbation, on dulera and Albuterol when at hospital, Breo Ellipta as outpatient (3) URI (upper respiratory infection) Current Visit: Yes Status: Acute Code(s): J06.9 - ACUTE UPPER RESPIRATORY INFECTION, UNSPECIFIED SNOMED Code(s): 12337548 Comment: continue Azithromycin po (4) COPD exacerbation Current Visit: No Status: Acute Priority: High Code(s): J44.1 - CHRONIC OBSTRUCTIVE PULMONARY DISEASE W (ACUTE) EXACERBATION SNOMED Code(s): 328447037315557 Comment: resolved. Status and Disposition: inpatient
[2017-11-02] MEDS ORDERED: Insulin GLARGINE(*) 1 UNITS UNIT SUBCUT ONE (17:30)
[2017-11-02] MEDS: Tamsulosin CAP* 0.4 MG PO SCH (17:40)
[2017-11-02] MEDS: Atorvastatin* 10 MG TAB PO SCH (20:49)
[2017-11-03] MEDS: Albuterol/Ipratropium NEB.SOL* Albuterol 2.5 MG/Ipratropium 0.5 MG 3 ML INH SCH ×2 (01:28→07:56)
[2017-11-03] MEDS: Clotrimazole TROCHE* 10 MG TROCHE PO SCH ×5 (05:03→21:18)
[2017-11-03] MEDS: Heparin VIAL(*) 5000 UNITS/ML VIAL (FIVE THOUSAND) SUBCUT SCH ×3 (05:45→21:18)
[2017-11-03 06:09] LABS: Hematocrit 34 % (42-52); Mean Corpuscular HGB Conc 35 g/dl (31-36); Mean Corpuscular Hemoglobin 34 pg (27-31); Mean Corpuscular Volume 96 fL (80-94); Mean Platelet Volume 9 um3 (7.4-10.4); Platelet Count 152 10^3/ul (150-450); Red Blood Count 3.56 10^6/ul (4.0-5.4); Red Cell Distribution Width 13 % (10.5-15); White Blood Count 6.1 10^3/ul (3.5-10.8)
[2017-11-03 06:29] LABS: EGFR Non-African American 81.3 (>60)
[2017-11-03 06:38] LABS: ABS Basophils 0 10^3/ul (0-0.2); ABS Eosinophils 0 10^3/ul (0-0.6); ABS Lymphocytes 1.1 10^3/ul (1.0-4.8); ABS Monocytes 0.5 10^3/ul (0-0.8); ABS Neutrophils 4.4 10^3/ul (1.5-7.7); ABS Nucleated RBC 0 10^3/ul; Eosinophil % 0.7 % (0-6); Lymphocyte % 18.3 % (25-47); Nucleated Red Blood Cells % 0.1
[2017-11-03] MEDS ORDERED: Potassium Chlor TAB* 20 MEQ TAB.ER PO ONE (07:05)
[2017-11-03] MEDS: metFORMIN* 500 MG TAB PO SCH (08:17)
[2017-11-03] MEDS: Azithromycin TAB* 250 MG PO SCH (08:17)
[2017-11-03] MEDS: glipiZIDE TAB* 5 MG PO SCH ×2 (08:17→17:02)
[2017-11-03] MEDS: Insulin LISPRO* 1 UNITS UNIT SUBCUT SCH ×3 (08:19→17:03)
[2017-11-03] MEDS ORDERED: MDI INH SCH (09:00)
[2017-11-03] MEDS ORDERED: FLUTICASONE INH SCH (09:00)
[2017-11-03] MEDS ORDERED: VILANTEROL MDI INH SCH (09:00)
--- NOTE | 2017-11-03 11:31 | PN ---
Subjective Date of Service: 11/03/17 Interval History: no overnight events. bg remains elevated despite increasing insulin dose. he had severe abdominal pain after taking metformin this morning. it is gone now. no nausea, vomiting, constipation, or diarrhea. Family History: Unchanged from Admission Social History: Unchanged from Admission Objective Active Medications: Albuterol (Ventolin Hfa Inhaler*) 2 puff INH Q4H PRN PRN Reason: wheezing Atorvastatin Calcium (Lipitor*) 5 mg PO BEDTIME [facility] Last Admin: 11/02/17 20:49 Dose: 5 mg Azithromycin (Zithromax Tab*) 250 mg PO DAILY [facility] Last Admin: 11/03/17 08:17 Dose: 250 mg Clotrimazole (Mycelex Luis*) 10 mg PO FIVE TIMES DAILY [facility] Last Admin: 11/03/17 11:04 Dose: Not Given Dextrose (D50w Syringe 50 Ml*) 12.5 gm IV PUSH .FOR FS < 60 - SS PRN PRN Reason: FS < 60 Fluticasone/Vilanterol (Breo Ellipta Mdi 100/25(Nf)) 1 puff INH DAILY [facility] Glipizide (Glucotrol Tab*) 5 mg PO 0800,1700 [facility] Last Admin: 11/03/17 08:17 Dose: 5 mg Heparin Sodium (Porcine) (Heparin Vial(*)) 5,000 units SUBCUT Q8HR [facility] Last Admin: 11/03/17 05:45 Dose: 5,000 units Insulin Glargine (Lantus(*)) 40 units SUBCUT Q24H [facility] Insulin Human Lispro (Humalog*) 0 units SUBCUT AC [facility] PRN Reason: Protocol Last Admin: 11/03/17 08:19 Dose: 12 unit Tamsulosin HCl (Flomax Cap*) 0.4 mg PO QPM [facility] Last Admin: 11/02/17 17:40 Dose: 0.4 mg Vital Signs - 8 hr 11/03/17 11/03/17 11/03/17 07:28 07:52 07:59 Temperature 98.0 F Pulse Rate 81 65 Respiratory 20 20 16 Rate Blood Pressure 104/66 (mmHg) O2 Sat by Pulse 94 98 Oximetry 11/03/17 11:12 Temperature 96.9 F Pulse Rate 85 Respiratory 18 Rate Blood Pressure 118/67 (mmHg) O2 Sat by Pulse 97 Oximetry Oxygen Devices in Use Now: None Appearance: alert, resting on CPAP, comfortable Eyes: No Scleral Icterus Ears/Nose/Mouth/Throat: NL Teeth, Lips, Gums Neck: NL Appearance and Movements; NL JVP Respiratory: Symmetrical Chest Expansion and Respiratory Effort, Clear to Auscultation Cardiovascular: NL Sounds; No Murmurs; No JVD, RRR Abdominal: NL Sounds; No Tenderness; No Distention Lymphatic: No Cervical Adenopathy Extremities: No Edema Skin: No Rash or Ulcers Neurological: Alert and Oriented x 3 Result Diagrams: 11/03/17 05:41 11/03/17 05:41 Additional Lab and Data: Lab Results 10/31/17 10/31/17 10/31/17 Range/Units 16:35 16:35 16:35 WBC (3.5-10.8) 10^3/ul RBC (4.0-5.4) 10^6/ul Hgb (14.0-18.0) g/dl Hct (42-52) % MCV (80-94) fL MCH (27-31) pg MCHC (31-36) g/dl RDW (10.5-15) % Plt Count (150-450) 10^3/ul MPV (7.4-10.4) um3 Neut % (Auto) (38-83) % Lymph % (Auto) (25-47) % [place] % (Auto) (0-7) % Eos % (Auto) (0-6) % Baso % (Auto) (0-2) % Absolute Neuts (auto) (1.5-7.7) 10^3/ul Absolute Lymphs (auto) (1.0-4.8) 10^3/ul Absolute Monos (auto) (0-0.8) 10^3/ul Absolute Eos (auto) (0-0.6) 10^3/ul Absolute Basos (auto) (0-0.2) 10^3/ul Absolute Nucleated RBC 10^3/ul Nucleated RBC % INR (Anticoag Therapy) 1.05 H (0.77-1.02) APTT 27.8 (26.0-36.3) seconds VBG pH (7.33-7.43) VBG pCO2 (41-51) mmHg VBG pO2 (35-45) mmHg VBG HCO3 (24-28) mmol/L VBG O2 Saturation (70-80) % VBG Base Excess (0-4) Sodium 127 L (133-145) mmol/L Potassium 3.7 (3.5-5.0) mmol/L Chloride 73 L (101-111) mmol/L Carbon Dioxide 23 (22-32) mmol/L Anion Gap 31 H (2-11) mmol/L BUN 25 H (6-24) mg/dL Creatinine 1.60 H (0.67-1.17) mg/dL Est GFR ( Amer) 55.2 (>60) Est GFR (Non-Af Amer) 42.9 (>60) BUN/Creatinine Ratio 15.6 (8-20) Glucose 999 H* (70-100) mg/dL Lactic Acid (0.5-2.0) mmol/L Calcium 10.2 (8.6-10.3) mg/dL Phosphorus 6.1 H (2.5-5.0) mg/dL Magnesium 2.1 (1.9-2.7) mg/dL Total Bilirubin 0.70 (0.2-1.0) mg/dL AST 14 (13-39) U/L ALT 20 (7-52) U/L Alkaline Phosphatase 90 (34-104) U/L Troponin I 0.02 (<0.04) ng/mL C-Reactive Protein 51.77 H (< 5.00) mg/L B-Natriuretic Peptide 93 ( - 100) pg/mL Total Protein 7.3 (6.4-8.9) g/dL Albumin 3.9 (3.2-5.2) g/dL Globulin 3.4 (2-4) g/dL Albumin/Globulin Ratio 1.1 (1-3) Lipase 19 (11.0-82.0) U/L TSH 1.61 (0.34-5.60) mcIU/mL 10/31/17 10/31/17 10/31/17 Range/Units 16:35 16:35 16:35 WBC 11.1 H (3.5-10.8) 10^3/ul RBC 4.37 (4.0-5.4) 10^6/ul Hgb 14.7 (14.0-18.0) g/dl Hct 45 (42-52) % MCV 102 H (80-94) fL MCH 34 H (27-31) pg MCHC 33 (31-36) g/dl RDW 14 (10.5-15) % Plt Count 247 (150-450) 10^3/ul MPV 9 (7.4-10.4) um3 Neut % (Auto) 86.0 H (38-83) % Lymph % (Auto) 8.1 L (25-47) % [place] % (Auto) 5.3 (0-7) % Eos % (Auto) 0 (0-6) % Baso % (Auto) 0.6 (0-2) % Absolute Neuts (auto) 9.6 H (1.5-7.7) 10^3/ul Absolute Lymphs (auto) 0.9 L (1.0-4.8) 10^3/ul Absolute Monos (auto) 0.6 (0-0.8) 10^3/ul Absolute Eos (auto) 0 (0-0.6) 10^3/ul Absolute Basos (auto) 0.1 (0-0.2) 10^3/ul Absolute Nucleated RBC 0 10^3/ul Nucleated RBC % 0 INR (Anticoag Therapy) (0.77-1.02) APTT (26.0-36.3) seconds VBG pH 7.35 (7.33-7.43) VBG pCO2 42 (41-51) mmHg VBG pO2 49 H (35-45) mmHg VBG HCO3 22.6 L (24-28) mmol/L VBG O2 Saturation 85.9 H (70-80) % VBG Base Excess -2.4 L (0-4) Sodium (133-145) mmol/L Potassium (3.5-5.0) mmol/L Chloride (101-111) mmol/L Carbon Dioxide (22-32) mmol/L Anion Gap (2-11) mmol/L BUN (6-24) mg/dL Creatinine (0.67-1.17) mg/dL Est GFR ( Amer) (>60) Est GFR (Non-Af Amer) (>60) BUN/Creatinine Ratio (8-20) Glucose (70-100) mg/dL Lactic Acid 2.6 H* (0.5-2.0) mmol/L Calcium (8.6-10.3) mg/dL Phosphorus (2.5-5.0) mg/dL Magnesium (1.9-2.7) mg/dL Total Bilirubin (0.2-1.0) mg/dL AST (13-39) U/L ALT (7-52) U/L Alkaline Phosphatase (34-104) U/L Troponin I (<0.04) ng/mL C-Reactive Protein (< 5.00) mg/L B-Natriuretic Peptide ( - 100) pg/mL Total Protein (6.4-8.9) g/dL Albumin (3.2-5.2) g/dL Globulin (2-4) g/dL Albumin/Globulin Ratio (1-3) Lipase (11.0-82.0) U/L TSH (0.34-5.60) mcIU/mL Microbiology and Other Data: Microbiology 10/31/17 22:14 Nasal Screen MRSA (PCR)([facility]) - Final Nasal Mrsa Not Detected 10/31/17 20:39 Influenza Types A,B Antigen ([facility]) - Final Nasal Specimen received for Influenza A/B Molecular testing Assess/Plan/Problems-Billing Assessment: 72 yo M with h/o COPD recently diagnosed DM, who had ab pain 2 weeks ago and stopped taking metformin when on prednisone for COPD exacerbation , admitted with BG of 999 - Patient Problems (1) Hyperosmolar non-ketotic state in patient with type 2 diabetes mellitus Current Visit: Yes Status: Acute Code(s): E11.01 - TYPE 2 DIABETES MELLITUS WITH HYPEROSMOLARITY WITH COMA SNOMED Code(s): 702890585 Comment: resolved but still with poor BG control on lantus 30U last night + metformin 500mg bid + glipizide 5mg BID A1c >12 likely cannot tolerate metformin--abdominal pain returned, and this is what caused him to discontinue it at home; I am discontinuing it needs DM educator for teaching about glucometer and injections --[facility] for [facility]. DM nutrition education ordered also (2) COPD (chronic obstructive pulmonary disease) Current Visit: Yes Status: Acute Code(s): J44.9 - CHRONIC OBSTRUCTIVE PULMONARY DISEASE, UNSPECIFIED SNOMED Code(s): 97313534 Comment: not in exacerbation, home breo ordered (3) URI (upper respiratory infection) Current Visit: Yes Status: Acute Code(s): J06.9 - ACUTE UPPER RESPIRATORY INFECTION, UNSPECIFIED SNOMED Code(s): 95435245 Comment: continue Azithromycin po for bronchitis (4) COPD exacerbation Current Visit: No Status: Acute Priority: High Code(s): J44.1 - CHRONIC OBSTRUCTIVE PULMONARY DISEASE W (ACUTE) EXACERBATION SNOMED Code(s): 859565159718254 Comment: resolved. Status and Disposition: inpatient
[2017-11-03] MEDS: VILANTEROL MDI INH SCH (12:03)
[2017-11-03] MEDS: MDI INH SCH (12:03)
[2017-11-03] MEDS: FLUTICASONE INH SCH (12:03)
[2017-11-03] MEDS: Insulin GLARGINE(*) 1 UNITS UNIT SUBCUT SCH (12:29)
[2017-11-03] MEDS: Tamsulosin CAP* 0.4 MG PO SCH (17:02)
[2017-11-03] MEDS: Atorvastatin* 10 MG TAB PO SCH (21:17)
[2017-11-04] MEDS: Heparin VIAL(*) 5000 UNITS/ML VIAL (FIVE THOUSAND) SUBCUT SCH ×3 (06:19→23:46)
[2017-11-04] MEDS: Clotrimazole TROCHE* 10 MG TROCHE PO SCH ×5 (06:19→23:37)
[2017-11-04 06:34] LABS: EGFR Non-African American 89.1 (>60)
[2017-11-04] MEDS ORDERED: Magnesium Sulfate IV* 3 GM in NS 0.9% 100 ML* 100 ML IVPB ONE (07:42)
[2017-11-04] MEDS ORDERED: Magnesium Sulfate 1 GM IV* 1 GM/100 ML BAG IV ONE (08:00)
[2017-11-04] MEDS ORDERED: Magnesium Sulfate 2 GM IV* 2 GM/50 ML BAG IV ONE (08:00)
[2017-11-04] MEDS: MDI INH SCH (08:01)
[2017-11-04] MEDS: FLUTICASONE INH SCH (08:01)
[2017-11-04] MEDS: VILANTEROL MDI INH SCH (08:01)
[2017-11-04] MEDS: Insulin LISPRO* 1 UNITS UNIT SUBCUT SCH ×3 (09:00→16:55)
[2017-11-04] MEDS: glipiZIDE TAB* 5 MG PO SCH ×2 (09:02→16:56)
[2017-11-04] MEDS: Azithromycin TAB* 250 MG PO SCH (09:03)
[2017-11-04] MEDS ORDERED: Acetaminophen TAB* 325 MG PO PRN (09:58)
[2017-11-04] MEDS ORDERED: Potassium Chlor TAB* 20 MEQ TAB.ER PO ONE (10:00)
[2017-11-04] MEDS: Insulin GLARGINE(*) 1 UNITS UNIT SUBCUT SCH (13:32)
--- NOTE | 2017-11-04 13:39 | PN ---
Subjective Date of Service: 11/04/17 Interval History: appetite was very poor after discharge. Lost weight 268 (on 10/08/17)-> 246 A1C jumped from 6.6 to 12.3 in 2 months. stools have been foul smelling last couple weeks. Family History: Unchanged from Admission Social History: Unchanged from Admission Objective Active Medications: Acetaminophen (Tylenol Tab*) 650 mg PO Q6H PRN PRN Reason: FEVER/HEADACHE Last Admin: 11/04/17 11:13 Dose: 650 mg Albuterol (Ventolin Hfa Inhaler*) 2 puff INH Q4H PRN PRN Reason: wheezing Atorvastatin Calcium (Lipitor*) 5 mg PO BEDTIME [facility] Last Admin: 11/03/17 21:17 Dose: 5 mg Azithromycin (Zithromax Tab*) 250 mg PO DAILY [facility] Last Admin: 11/04/17 09:03 Dose: 250 mg Clotrimazole (Mycelex Luis*) 10 mg PO FIVE TIMES DAILY [facility] Last Admin: 11/04/17 13:34 Dose: 10 mg Dextrose (D50w Syringe 50 Ml*) 12.5 gm IV PUSH .FOR FS < 60 - SS PRN PRN Reason: FS < 60 Fluticasone/Vilanterol (Breo Ellipta Mdi 100/25(Nf)) 1 puff INH DAILY [facility] Last Admin: 11/04/17 08:01 Dose: 1 puff Glipizide (Glucotrol Tab*) 5 mg PO 0800,1700 [facility] Last Admin: 11/04/17 09:02 Dose: 5 mg Heparin Sodium (Porcine) (Heparin Vial(*)) 5,000 units SUBCUT Q8HR [facility] Last Admin: 11/04/17 13:33 Dose: 5,000 units Insulin Glargine (Lantus(*)) 40 units SUBCUT Q24H [facility] Last Admin: 11/04/17 13:32 Dose: 40 unit Insulin Human Lispro (Humalog*) 0 units SUBCUT AC [facility] PRN Reason: Protocol Last Admin: 11/04/17 12:19 Dose: 12 unit Tamsulosin HCl (Flomax Cap*) 0.4 mg PO QPM [facility] Last Admin: 11/03/17 17:02 Dose: 0.4 mg Vital Signs - 8 hr 11/04/17 11/04/17 08:14 11:22 Temperature 97.9 F Pulse Rate 82 75 Respiratory 18 17 Rate Blood Pressure 107/63 115/48 (mmHg) O2 Sat by Pulse 92 97 Oximetry Oxygen Devices in Use Now: None Result Diagrams: 11/03/17 05:41 11/04/17 05:58 Additional Lab and Data: Lab Results 10/31/17 10/31/17 10/31/17 Range/Units 16:35 16:35 16:35 WBC (3.5-10.8) 10^3/ul RBC (4.0-5.4) 10^6/ul Hgb (14.0-18.0) g/dl Hct (42-52) % MCV (80-94) fL MCH (27-31) pg MCHC (31-36) g/dl RDW (10.5-15) % Plt Count (150-450) 10^3/ul MPV (7.4-10.4) um3 Neut % (Auto) (38-83) % Lymph % (Auto) (25-47) % [place] % (Auto) (0-7) % Eos % (Auto) (0-6) % Baso % (Auto) (0-2) % Absolute Neuts (auto) (1.5-7.7) 10^3/ul Absolute Lymphs (auto) (1.0-4.8) 10^3/ul Absolute Monos (auto) (0-0.8) 10^3/ul Absolute Eos (auto) (0-0.6) 10^3/ul Absolute Basos (auto) (0-0.2) 10^3/ul Absolute Nucleated RBC 10^3/ul Nucleated RBC % INR (Anticoag Therapy) 1.05 H (0.77-1.02) APTT 27.8 (26.0-36.3) seconds VBG pH (7.33-7.43) VBG pCO2 (41-51) mmHg VBG pO2 (35-45) mmHg VBG HCO3 (24-28) mmol/L VBG O2 Saturation (70-80) % VBG Base Excess (0-4) Sodium 127 L (133-145) mmol/L Potassium 3.7 (3.5-5.0) mmol/L Chloride 73 L (101-111) mmol/L Carbon Dioxide 23 (22-32) mmol/L Anion Gap 31 H (2-11) mmol/L BUN 25 H (6-24) mg/dL Creatinine 1.60 H (0.67-1.17) mg/dL Est GFR ( Amer) 55.2 (>60) Est GFR (Non-Af Amer) 42.9 (>60) BUN/Creatinine Ratio 15.6 (8-20) Glucose 999 H* (70-100) mg/dL Lactic Acid (0.5-2.0) mmol/L Calcium 10.2 (8.6-10.3) mg/dL Phosphorus 6.1 H (2.5-5.0) mg/dL Magnesium 2.1 (1.9-2.7) mg/dL Total Bilirubin 0.70 (0.2-1.0) mg/dL AST 14 (13-39) U/L ALT 20 (7-52) U/L Alkaline Phosphatase 90 (34-104) U/L Troponin I 0.02 (<0.04) ng/mL C-Reactive Protein 51.77 H (< 5.00) mg/L B-Natriuretic Peptide 93 ( - 100) pg/mL Total Protein 7.3 (6.4-8.9) g/dL Albumin 3.9 (3.2-5.2) g/dL Globulin 3.4 (2-4) g/dL Albumin/Globulin Ratio 1.1 (1-3) Lipase 19 (11.0-82.0) U/L TSH 1.61 (0.34-5.60) mcIU/mL 10/31/17 10/31/17 10/31/17 Range/Units 16:35 16:35 16:35 WBC 11.1 H (3.5-10.8) 10^3/ul RBC 4.37 (4.0-5.4) 10^6/ul Hgb 14.7 (14.0-18.0) g/dl Hct 45 (42-52) % MCV 102 H (80-94) fL MCH 34 H (27-31) pg MCHC 33 (31-36) g/dl RDW 14 (10.5-15) % Plt Count 247 (150-450) 10^3/ul MPV 9 (7.4-10.4) um3 Neut % (Auto) 86.0 H (38-83) % Lymph % (Auto) 8.1 L (25-47) % [place] % (Auto) 5.3 (0-7) % Eos % (Auto) 0 (0-6) % Baso % (Auto) 0.6 (0-2) % Absolute Neuts (auto) 9.6 H (1.5-7.7) 10^3/ul Absolute Lymphs (auto) 0.9 L (1.0-4.8) 10^3/ul Absolute Monos (auto) 0.6 (0-0.8) 10^3/ul Absolute Eos (auto) 0 (0-0.6) 10^3/ul Absolute Basos (auto) 0.1 (0-0.2) 10^3/ul Absolute Nucleated RBC 0 10^3/ul Nucleated RBC % 0 INR (Anticoag Therapy) (0.77-1.02) APTT (26.0-36.3) seconds VBG pH 7.35 (7.33-7.43) VBG pCO2 42 (41-51) mmHg VBG pO2 49 H (35-45) mmHg VBG HCO3 22.6 L (24-28) mmol/L VBG O2 Saturation 85.9 H (70-80) % VBG Base Excess -2.4 L (0-4) Sodium (133-145) mmol/L Potassium (3.5-5.0) mmol/L Chloride (101-111) mmol/L Carbon Dioxide (22-32) mmol/L Anion Gap (2-11) mmol/L BUN (6-24) mg/dL Creatinine (0.67-1.17) mg/dL Est GFR ( Amer) (>60) Est GFR (Non-Af Amer) (>60) BUN/Creatinine Ratio (8-20) Glucose (70-100) mg/dL Lactic Acid 2.6 H* (0.5-2.0) mmol/L Calcium (8.6-10.3) mg/dL Phosphorus (2.5-5.0) mg/dL Magnesium (1.9-2.7) mg/dL Total Bilirubin (0.2-1.0) mg/dL AST (13-39) U/L ALT (7-52) U/L Alkaline Phosphatase (34-104) U/L Troponin I (<0.04) ng/mL C-Reactive Protein (< 5.00) mg/L B-Natriuretic Peptide ( - 100) pg/mL Total Protein (6.4-8.9) g/dL Albumin (3.2-5.2) g/dL Globulin (2-4) g/dL Albumin/Globulin Ratio (1-3) Lipase (11.0-82.0) U/L TSH (0.34-5.60) mcIU/mL Microbiology and Other Data: Microbiology 10/31/17 22:14 Nasal Screen MRSA (PCR)([facility]ISBETH) - Final Nasal Mrsa Not Detected 10/31/17 20:39 Influenza Types A,B Antigen ([facility]ISBETH) - Final Nasal Specimen received for Influenza A/B Molecular testing Assess/Plan/Problems-Billing Assessment: 72 yo M with h/o COPD (2 recent admissions), EtOH, recently quit smoker, recently diagnosed DM (A1C 6.6 on 09/08/17 and mid 6s since 2013), losing weight, poor appetitie, nocturia, thirst, foul smelling stools. Presenting BG of 999, AG 31, pH 7.35. Required insulin gtt. A1C now 12.3 8 weeks later. Concern for acute pancreatic insufficiency, concern for need to rule out potential pancreatic malignancy with MRI pancreas. - Patient Problems (1) Hyperosmolar non-ketotic state in patient with type 2 diabetes mellitus Current Visit: Yes Status: Acute Code(s): E11.01 - TYPE 2 DIABETES MELLITUS WITH HYPEROSMOLARITY WITH COMA SNOMED Code(s): 393239690 Comment: concerned about doubling of A1C in 8 weeks, foul smelling stools. poor appetite, weight loss. getting MRI abdomen/pancreas currently lantus 40U (getting ~1400) + glipizide 5mg BID. currently npo for MRI A1c now 12.3 DM nutrition education ordered also (2) COPD (chronic obstructive pulmonary disease) Current Visit: Yes Status: Acute Code(s): J44.9 - CHRONIC OBSTRUCTIVE PULMONARY DISEASE, UNSPECIFIED SNOMED Code(s): 80438536 Comment: not in exacerbation, home breo ordered azithromycin (3) MYRON (obstructive sleep apnea) Current Visit: No Status: Chronic Priority: High Code(s): G47.33 - OBSTRUCTIVE SLEEP APNEA (ADULT) (PEDIATRIC) SNOMED Code(s): 16554325 Comment: Continue home CPAP use. Status and Disposition: medicine inpatient, awaiting MRI pancreas.
[2017-11-04] MEDS ORDERED: Gadoteridol* (CONTRAST) 279.3 MG/ML 10 ML IV ONE (21:38)
--- NOTE | 2017-11-04 22:09 | RAD ---
Indication: Abdominal pain. Heavily T2-weighted coronal and 3-D reconstructive images of the abdomen was performed to evaluate the biliary system. Additionally axial and coronal T2, fat-sat T1, fat-sat T2 weighted images of the abdomen were obtained. Dynamic axial images of the pancreas was obtained during intravenous injection of 20 mL of ProHance. The left and right hepatic ducts are unremarkable. The pancreas demonstrates no mass or pancreatic duct dilatation. The pancreas demonstrates no evidence of nonenhancing masses. Common duct is not dilated. No evidence of pancreatic duct dilatation is noted. The spleen is normal in size. The gallbladder demonstrates gallstones. The visualized liver demonstrates fluid signal in the left lobe consistent with cysts. No adrenal lesions are noted. The kidneys demonstrate symmetric nephrograms. There is likely a cyst in the lower pole of the left kidney. No retroperitoneal adenopathy is noted. IMPRESSION: No definite pancreatic mass is noted. No evidence of biliary duct dilatation is noted. Gallstones are present.
[2017-11-04] MEDS: Atorvastatin* 10 MG TAB PO SCH (23:36)
[2017-11-04] MEDS: Tamsulosin CAP* 0.4 MG PO SCH (23:46)
[2017-11-05] MEDS: Heparin VIAL(*) 5000 UNITS/ML VIAL (FIVE THOUSAND) SUBCUT SCH ×3 (06:33→22:37)
[2017-11-05] MEDS: Clotrimazole TROCHE* 10 MG TROCHE PO SCH ×5 (06:34→22:36)
[2017-11-05] MEDS: Azithromycin TAB* 250 MG PO SCH (08:01)
[2017-11-05] MEDS: glipiZIDE TAB* 5 MG PO SCH ×2 (08:01→16:48)
[2017-11-05] MEDS: MDI INH SCH (09:29)
[2017-11-05] MEDS: FLUTICASONE INH SCH (09:29)
[2017-11-05] MEDS: VILANTEROL MDI INH SCH (09:29)
[2017-11-05] MEDS: Insulin LISPRO* 1 UNITS UNIT SUBCUT SCH ×3 (09:30→16:47)
[2017-11-05] MEDS: Insulin GLARGINE(*) 1 UNITS UNIT SUBCUT SCH (14:41)
[2017-11-05] MEDS ORDERED: Albuterol/Ipratropium NEB.SOL* Albuterol 2.5 MG/Ipratropium 0.5 MG 3 ML INH PRN (15:34)
[2017-11-05] MEDS ORDERED: Albuterol/Ipratropium NEB.SOL* Albuterol 2.5 MG/Ipratropium 0.5 MG 3 ML ONE (15:39)
[2017-11-05] MEDS: UMECLIDIN MDI INH SCH (15:51)
[2017-11-05] MEDS: Tamsulosin CAP* 0.4 MG PO SCH (16:48)
--- NOTE | 2017-11-05 17:18 | PN ---
Subjective Date of Service: 11/05/17 Interval History: no overnight events, feels good today. he is very nervous about going home and using insulin and a glucometer. his partner is at the bedside and shares his fears. Family History: Unchanged from Admission Social History: Unchanged from Admission Objective Active Medications: Acetaminophen (Tylenol Tab*) 650 mg PO Q6H PRN PRN Reason: FEVER/HEADACHE Last Admin: 11/04/17 11:13 Dose: 650 mg Albuterol (Ventolin Hfa Inhaler*) 2 puff INH Q4H PRN PRN Reason: wheezing Albuterol/Ipratropium (Duoneb (Albuterol 2.5 Mg/Ipratropium 0.5 Mg)) 1 neb INH Q2H PRN PRN Reason: SOB/WHEEZING Last Admin: 11/05/17 15:42 Dose: 1 neb Atorvastatin Calcium (Lipitor*) 5 mg PO BEDTIME [facility] Last Admin: 11/04/17 23:36 Dose: 5 mg Azithromycin (Zithromax Tab*) 250 mg PO DAILY [facility] Last Admin: 11/05/17 08:01 Dose: 250 mg Clotrimazole (Mycelex Luis*) 10 mg PO FIVE TIMES DAILY [facility] Last Admin: 11/05/17 16:48 Dose: 10 mg Dextrose (D50w Syringe 50 Ml*) 12.5 gm IV PUSH .FOR FS < 60 - SS PRN PRN Reason: FS < 60 Fluticasone/Vilanterol (Breo Ellipta Mdi 100/25(Nf)) 1 puff INH DAILY [facility] Last Admin: 11/05/17 09:29 Dose: 1 puff Glipizide (Glucotrol Tab*) 5 mg PO 0800,1700 [facility] Last Admin: 11/05/17 16:48 Dose: 5 mg Heparin Sodium (Porcine) (Heparin Vial(*)) 5,000 units SUBCUT Q8HR [facility] Last Admin: 11/05/17 14:42 Dose: 5,000 units Insulin Glargine (Lantus(*)) 40 units SUBCUT Q24H [facility] Last Admin: 11/05/17 14:41 Dose: 40 unit Insulin Human Lispro (Humalog*) 0 units SUBCUT AC [facility] PRN Reason: Protocol Last Admin: 11/05/17 16:47 Dose: 6 unit Tamsulosin HCl (Flomax Cap*) 0.4 mg PO QPM [facility] Last Admin: 11/05/17 16:48 Dose: 0.4 mg Umeclidinium [place] (Incruse Ellipta Mdi (Nf)) 1 inh INH DAILY [facility] Last Admin: 11/05/17 15:51 Dose: 1 inh Vital Signs - 8 hr 11/05/17 11/05/17 11/05/17 11:22 15:31 15:57 Temperature 97.9 F 97.6 F Pulse Rate 81 82 83 Respiratory 20 18 16 Rate Blood Pressure 106/54 106/54 (mmHg) O2 Sat by Pulse 98 98 97 Oximetry Oxygen Devices in Use Now: None Appearance: alert, no distress, wearing bipap Eyes: No Scleral Icterus Ears/Nose/Mouth/Throat: NL Teeth, Lips, Gums Neck: NL Appearance and Movements; NL JVP Respiratory: Symmetrical Chest Expansion and Respiratory Effort, Clear to Auscultation Cardiovascular: No Edema Abdominal: NL Sounds; No Tenderness; No Distention, - - protuberant abdomen, liver nonpalpable, no guarding, rebound Lymphatic: No Cervical Adenopathy Extremities: No Edema Skin: No Rash or Ulcers Result Diagrams: 11/03/17 05:41 11/04/17 05:58 Additional Lab and Data: Lab Results 10/31/17 10/31/17 10/31/17 Range/Units 16:35 16:35 16:35 WBC (3.5-10.8) 10^3/ul RBC (4.0-5.4) 10^6/ul Hgb (14.0-18.0) g/dl Hct (42-52) % MCV (80-94) fL MCH (27-31) pg MCHC (31-36) g/dl RDW (10.5-15) % Plt Count (150-450) 10^3/ul MPV (7.4-10.4) um3 Neut % (Auto) (38-83) % Lymph % (Auto) (25-47) % [place] % (Auto) (0-7) % Eos % (Auto) (0-6) % Baso % (Auto) (0-2) % Absolute Neuts (auto) (1.5-7.7) 10^3/ul Absolute Lymphs (auto) (1.0-4.8) 10^3/ul Absolute Monos (auto) (0-0.8) 10^3/ul Absolute Eos (auto) (0-0.6) 10^3/ul Absolute Basos (auto) (0-0.2) 10^3/ul Absolute Nucleated RBC 10^3/ul Nucleated RBC % INR (Anticoag Therapy) 1.05 H (0.77-1.02) APTT 27.8 (26.0-36.3) seconds VBG pH (7.33-7.43) VBG pCO2 (41-51) mmHg VBG pO2 (35-45) mmHg VBG HCO3 (24-28) mmol/L VBG O2 Saturation (70-80) % VBG Base Excess (0-4) Sodium 127 L (133-145) mmol/L Potassium 3.7 (3.5-5.0) mmol/L Chloride 73 L (101-111) mmol/L Carbon Dioxide 23 (22-32) mmol/L Anion Gap 31 H (2-11) mmol/L BUN 25 H (6-24) mg/dL Creatinine 1.60 H (0.67-1.17) mg/dL Est GFR ( Amer) 55.2 (>60) Est GFR (Non-Af Amer) 42.9 (>60) BUN/Creatinine Ratio 15.6 (8-20) Glucose 999 H* (70-100) mg/dL Lactic Acid (0.5-2.0) mmol/L Calcium 10.2 (8.6-10.3) mg/dL Phosphorus 6.1 H (2.5-5.0) mg/dL Magnesium 2.1 (1.9-2.7) mg/dL Total Bilirubin 0.70 (0.2-1.0) mg/dL AST 14 (13-39) U/L ALT 20 (7-52) U/L Alkaline Phosphatase 90 (34-104) U/L Troponin I 0.02 (<0.04) ng/mL C-Reactive Protein 51.77 H (< 5.00) mg/L B-Natriuretic Peptide 93 ( - 100) pg/mL Total Protein 7.3 (6.4-8.9) g/dL Albumin 3.9 (3.2-5.2) g/dL Globulin 3.4 (2-4) g/dL Albumin/Globulin Ratio 1.1 (1-3) Lipase 19 (11.0-82.0) U/L TSH 1.61 (0.34-5.60) mcIU/mL 10/31/17 10/31/17 10/31/17 Range/Units 16:35 16:35 16:35 WBC 11.1 H (3.5-10.8) 10^3/ul RBC 4.37 (4.0-5.4) 10^6/ul Hgb 14.7 (14.0-18.0) g/dl Hct 45 (42-52) % MCV 102 H (80-94) fL MCH 34 H (27-31) pg MCHC 33 (31-36) g/dl RDW 14 (10.5-15) % Plt Count 247 (150-450) 10^3/ul MPV 9 (7.4-10.4) um3 Neut % (Auto) 86.0 H (38-83) % Lymph % (Auto) 8.1 L (25-47) % [place] % (Auto) 5.3 (0-7) % Eos % (Auto) 0 (0-6) % Baso % (Auto) 0.6 (0-2) % Absolute Neuts (auto) 9.6 H (1.5-7.7) 10^3/ul Absolute Lymphs (auto) 0.9 L (1.0-4.8) 10^3/ul Absolute Monos (auto) 0.6 (0-0.8) 10^3/ul Absolute Eos (auto) 0 (0-0.6) 10^3/ul Absolute Basos (auto) 0.1 (0-0.2) 10^3/ul Absolute Nucleated RBC 0 10^3/ul Nucleated RBC % 0 INR (Anticoag Therapy) (0.77-1.02) APTT (26.0-36.3) seconds VBG pH 7.35 (7.33-7.43) VBG pCO2 42 (41-51) mmHg VBG pO2 49 H (35-45) mmHg VBG HCO3 22.6 L (24-28) mmol/L VBG O2 Saturation 85.9 H (70-80) % VBG Base Excess -2.4 L (0-4) Sodium (133-145) mmol/L Potassium (3.5-5.0) mmol/L Chloride (101-111) mmol/L Carbon Dioxide (22-32) mmol/L Anion Gap (2-11) mmol/L BUN (6-24) mg/dL Creatinine (0.67-1.17) mg/dL Est GFR ( Amer) (>60) Est GFR (Non-Af Amer) (>60) BUN/Creatinine Ratio (8-20) Glucose (70-100) mg/dL Lactic Acid 2.6 H* (0.5-2.0) mmol/L Calcium (8.6-10.3) mg/dL Phosphorus (2.5-5.0) mg/dL Magnesium (1.9-2.7) mg/dL Total Bilirubin (0.2-1.0) mg/dL AST (13-39) U/L ALT (7-52) U/L Alkaline Phosphatase (34-104) U/L Troponin I (<0.04) ng/mL C-Reactive Protein (< 5.00) mg/L B-Natriuretic Peptide ( - 100) pg/mL Total Protein (6.4-8.9) g/dL Albumin (3.2-5.2) g/dL Globulin (2-4) g/dL Albumin/Globulin Ratio (1-3) Lipase (11.0-82.0) U/L TSH (0.34-5.60) mcIU/mL Microbiology and Other Data: Microbiology 10/31/17 22:14 Nasal Screen MRSA (PCR)([facility]) - Final Nasal Mrsa Not Detected 10/31/17 20:39 Influenza Types A,B Antigen ([facility]) - Final Nasal Specimen received for Influenza A/B Molecular testing Assess/Plan/Problems-Billing Assessment: 72 yo M with h/o COPD (2 recent admissions), EtOH, recently quit smoker, recently diagnosed DM (A1C 6.6 on 09/08/17 and mid 6s since 2013), losing weight, poor appetitie, nocturia, thirst, foul smelling stools. Presenting BG of 999, AG 31, pH 7.35. Required insulin gtt. A1C now 12.3 8 weeks later. Concern for acute pancreatic insufficiency, concern for need to rule out potential pancreatic malignancy with MRI pancreas. - Patient Problems (1) Hyperosmolar non-ketotic state in patient with type 2 diabetes mellitus Current Visit: Yes Status: Acute Code(s): E11.01 - TYPE 2 DIABETES MELLITUS WITH HYPEROSMOLARITY WITH COMA SNOMED Code(s): 732863989 Comment: Resolved, required insulin drip at admission Better control on lantus 40U daily Will likely use a routine mealtime dose instead of a sliding scale A1c 12.3 DM nutrition education appreciated (2) COPD (chronic obstructive pulmonary disease) Current Visit: Yes Status: Acute Code(s): J44.9 - CHRONIC OBSTRUCTIVE PULMONARY DISEASE, UNSPECIFIED SNOMED Code(s): 47521278 Comment: not in exacerbation, home breo and incruse ordered azithromycin x 5 days for bronchitis; stop after today (3) URI (upper respiratory infection) Current Visit: Yes Status: Acute Code(s): J06.9 - ACUTE UPPER RESPIRATORY INFECTION, UNSPECIFIED SNOMED Code(s): 58414082 Comment: continue Azithromycin po for bronchitis (4) COPD exacerbation Current Visit: No Status: Acute Priority: High Code(s): J44.1 - CHRONIC OBSTRUCTIVE PULMONARY DISEASE W (ACUTE) EXACERBATION SNOMED Code(s): 019218737532458 Comment: resolved.
[2017-11-05] MEDS: Atorvastatin* 10 MG TAB PO SCH (22:36)
[2017-11-06] MEDS: Heparin VIAL(*) 5000 UNITS/ML VIAL (FIVE THOUSAND) SUBCUT SCH (06:18)
[2017-11-06] MEDS: Clotrimazole TROCHE* 10 MG TROCHE PO SCH ×2 (06:18→08:16)
[2017-11-06 06:53] LABS: ABS Basophils 0 10^3/ul (0-0.2); ABS Eosinophils 0.1 10^3/ul (0-0.6); ABS Monocytes 1.1 10^3/ul (0-0.8); ABS Neutrophils 4.8 10^3/ul (1.5-7.7); ABS Nucleated RBC 0 10^3/ul; Eosinophil % 0.7 % (0-6); Hematocrit 37 % (42-52); Lymphocyte % 24.7 % (25-47); Mean Corpuscular HGB Conc 35 g/dl (31-36); Mean Corpuscular Hemoglobin 34 pg (27-31); Mean Corpuscular Volume 98 fL (80-94); Mean Platelet Volume 8 um3 (7.4-10.4); Nucleated Red Blood Cells % 0.1; Platelet Count 211 10^3/ul (150-450); Red Blood Count 3.82 10^6/ul (4.0-5.4); Red Cell Distribution Width 14 % (10.5-15); White Blood Count 7.9 10^3/ul (3.5-10.8)
[2017-11-06] MEDS: Insulin LISPRO* 1 UNITS UNIT SUBCUT SCH ×2 (08:16→12:21)
[2017-11-06] MEDS: UMECLIDIN MDI INH SCH (08:16)
[2017-11-06] MEDS: Azithromycin TAB* 250 MG PO SCH (08:16)
[2017-11-06] MEDS: glipiZIDE TAB* 5 MG PO SCH (08:16)
[2017-11-06] MEDS: MDI INH SCH (08:17)
[2017-11-06] MEDS: FLUTICASONE INH SCH (08:17)
[2017-11-06] MEDS: VILANTEROL MDI INH SCH (08:17)
[2017-11-06 08:41] LABS: EGFR Non-African American 86.8 (>60)
[2017-11-06 12:22] VITALS: BP 116/77
--- NOTE | 2017-11-06 21:53 | DS ---
CC: Lluvia Stevens NP * DISCHARGE SUMMARY: DATE OF ADMISSION: 10/31/17 DATE OF DISCHARGE: 11/06/17 PRINCIPAL DISCHARGE DIAGNOSES: 1. Hyperosmolar hyperglycemic state. 2. New type 2 diabetes, requiring insulin. SECONDARY DISCHARGE DIAGNOSES: 1. Chronic obstructive pulmonary disease. 2. Obstructive sleep apnea. 3. Hypertension. 4. Oropharyngeal candidiasis. 5. Tobacco abuse. 6. Alcohol abuse. DISCHARGE MEDICATIONS: 1. Simvastatin 10 mg q.h.s. 2. HCTZ 25 mg daily. 3. Albuterol inhaler 2 puffs q.4 p.r.n. wheezing. 4. Flomax 0.4 mg q.h.s. 5. Breo Ellipta 1 puff inhaled in the morning. 6. Incruse Ellipta 1 puff inhaled daily. 7. Glipizide 5 mg b.i.d. 8. Lantus 40 units daily. 9. DuoNeb q.2 p.r.n. shortness of breath or wheezing. Discontinued medication on this admission: 1. Metformin 500 mg b.i.d. PHYSICAL EXAM AT THE TIME OF DISCHARGE: Vital Signs: Temperature 97.8, heart rate 84, pulse ox 93% on room air, blood pressure 108/72. General: Alert, obese, well- appearing man, in no distress. HEENT: Pupils equal, round, and reactive to light. No conjunctival injection. Moist mucosa. No oropharyngeal plaques, exudates, or erythema. Neck: No JVP. No cervical adenopathy. Chest : Mid systolic murmur heard throughout. PMI nondisplaced. Regular rate and rhythm. Lungs: Clear bilaterally. No wheezes or rhonchi. Abdomen: Obese, soft, nontender, and nondistended. Liver is nonpalpable. No guarding or rebound. Extremities: No edema. No rashes. No ulcers. Neurologic: Oriented x3. Strength 5+ throughout. Normal gait. HOSPITAL COURSE BY PROBLEM: 1. HHS. Mr. Taylor was admitted on an insulin drip at 0.1 unit/kg/hour with a good response in his glucose. He was also given aggressive fluid resuscitation and his blood glucose and urine output responded appropriately. The exacerbating feature was thought to be recent steroid use and self discontinuation of home metformin. 2. New diagnosis of type 2 diabetes. His A1c has been noted to double to 12.3 on this admission from 6.6 in September. An MRI was obtained on this admission to rule out pancreatic neoplasm as an etiology of exocrine pancreatic insufficiency; however, the MRCP was negative for such. He had no reason for a falsely negative A1c 2 months ago, so I suspect his recent steroid use in combination with ongoing alcohol use and copious Mountain Dew ingestion contributed to his rapid elevation in A1c. He was initiated on Lantus and it was titrated through his admission. At the time of discharge, he is currently well controlled. He was given strict instructions to check blood sugar first thing in the morning after his biggest meal for him which is usually dinner and anytime he is feeling weak, nauseous, sweaty, or generally unwell. He is instructed to keep a strict log of these blood sugar measurements and to take them to his PCP next week. He is being discharged on Lantus 40 units daily and without mealtime insulin. He was evaluated by the [facility] nurse practitioner who provided counseling for insulin pens and his glucometer and test strips and she will see him in followup at [facility]. 3. Oropharyngeal candidiasis. He will be continued on clotrimazole troches 5 times daily for 4 more days. 4. Tobacco abuse. He says he is quitting upon this discharge and declines patches or gums, he says he has both at home. 5. History of alcohol abuse. He also has gone "cold turkey" during this hospitalization and is motivated to remain abstinent from alcohol. I discussed his MRCP with Radiology, who detected no evidence of nodularity or suggestions of early sources on his MRI. He also had no ascites at this time. 6. Chronic obstructive pulmonary disease. He was maintained on his home controller medications of Breo and Incruse and is being discharged with DuoNebs p.r.n. and an albuterol inhaler p.r.n. DISPOSITION: Mr. Taylor is discharged to home with his partner on 11/06/17 at 11 a.m. DISCHARGE INSTRUCTIONS: He has been provided with a glucometer test strips, insulin pen, pen needles. The patient education on diabetes and diet, how to check his blood sugar and a followup with [facility] and his PCP, Lluvia Stevens. He is instructed to call his PCP if his blood sugar drops below 80 and to return to the emergency department if it remains below 80 for over an hour or if he experiences any shortness of breath, chest pain, or any other abnormal symptoms. [id number]/[facility] #: [id number] [facility]
== END 2017-11-06 12:00 | disposition home or self-care (01) | DRG 638 ==
LOC: ED 16:04 → ICU 19:04 → MED 11-01 15:04
PROVIDERS: ADMIT Internal Medicine; ATTEND Internal Medicine
DX: E11.00 Type 2 diabetes mellitus with hyperosmolarity without nonketotic hyperglycemic-hyperosmolar coma (NKHHC) (principal); B37.89 Other sites of candidiasis; I83.018 Varicose veins of right lower extremity with ulcer other part of lower leg; I83.028 Varicose veins of left lower extremity with ulcer other part of lower leg; L97.819 Non-pressure chronic ulcer of other part of right lower leg with unspecified severity; J44.1 Chronic obstructive pulmonary disease with (acute) exacerbation; G47.33 Obstructive sleep apnea (adult) (pediatric); I10 Essential (primary) hypertension; F17.210 Nicotine dependence, cigarettes, uncomplicated; F10.10 Alcohol abuse, uncomplicated; E78.5 Hyperlipidemia, unspecified; J06.9 Acute upper respiratory infection, unspecified; N40.0 Benign prostatic hyperplasia without lower urinary tract symptoms; E66.9 Obesity, unspecified; Z68.34 Body mass index [BMI] 34.0-34.9, adult; Z79.84 Long term (current) use of oral hypoglycemic drugs; Z79.1 Long term (current) use of non-steroidal anti-inflammatories (NSAID); Z79.899 Other long term (current) drug therapy; Z88.5 Allergy status to narcotic agent; Z82.3 Family history of stroke; Z80.0 Family history of malignant neoplasm of digestive organs
CPT/HCPCS: 36415; 71045; 74183; 76376; 80048; 80053; 81003; 82803; 82947; 83036; 83605; 83690; 83735; 83880; 84100; 84145; 84443; 84484; 85025; 85610; 85730; 86140; 87502; 87641; 93005; 94640; 94760; 99222; 99284; A9270-GY; A9579; J0456; J0696; J1644; J3475; J3480

== ENCOUNTER 2018-07-28 15:19 | Inpatient (IN) | payer MEDICARE ==
[2018-07-28 15:47] LABS: ABS Basophils 0.1 10^3/ul (0-0.2); ABS Eosinophils 0 10^3/ul (0-0.6); ABS Lymphocytes 0.8 10^3/ul (1.0-4.8); ABS Monocytes 1.3 10^3/ul (0-0.8); ABS Nucleated RBC 0 10^3/ul; Eosinophil % 0 %; Hematocrit 44 % (42-52); Lymphocyte % 4.8 %; Mean Corpuscular HGB Conc 34 g/dl (31-36); Mean Corpuscular Hemoglobin 33 pg (27-31); Mean Corpuscular Volume 95 fL (80-94); Mean Platelet Volume 7.9 fL (7.4-10.4); Nucleated Red Blood Cells % 0; Platelet Count 176 10^3/ul (150-450); Red Blood Count 4.63 10^6/ul (4.00-5.40); Red Cell Distribution Width 14 % (10.5-15); White Blood Count 16.2 10^3/ul (3.5-10.8)
[2018-07-28] MEDS ORDERED: Albuterol/Ipratropium NEB.SOL* Albuterol 2.5 MG/Ipratropium 0.5 MG 3 ML INH ONE (15:57)
[2018-07-28] MEDS ORDERED: Acetaminophen TAB* 325 MG PO ONE (15:57)
--- NOTE | 2018-07-28 16:01 | ED ---
Shortness of Breath - HPI Summary HPI Summary: Patient complains of subjective fever x 2 days, SOB and mild left-sided chest pain starting last night. Patient normally on home O2 at 2 L at night, started at 3L 24/7 last night and increased to 4L this morning. Left-sided chest pain described as mild, intermittent lasting seconds at a time, sharp, exertional. Denies new cough, ALVARENGA, sore throat, neck stiffness, N/V/D, abdominal pain, new onset peripheral edema, change in urine, change in BM. Also denies history of blood clots, recent surgery or trauma, hospital admission and past 3 months, long travel, new immobility. Medical history is DM 2, COPD, HTN, syncope, HDL, obesity. Denies prior cardiac history. Denies family cardiac history. Positive smoker no anti-coag. - History of Current Complaint Chief Complaint: EDChestPainROMI Time Seen by Provider: 07/28/18 15:28 Hx Obtained From: Patient Onset/Duration: Gradual Onset Timing: Constant Current Severity: Moderate Dyspnea At: Rest Alleviating Factors: Oxygen Associated Signs & Symptoms: Fever - Allergy/Home Medications Allergies/Adverse Reactions: Allergies Allergy/AdvReac Type Severity Reaction Status Date / Time amoxicillin Allergy Rash Verified 07/28/18 15:21 oxycodone Allergy Difficulty Verified 07/28/18 15:21 Breathing Home Medications: Home Medications Albuterol 2.5MG/3ML (0.083%)* [Ventolin 2.5 MG/3 ML NEB.CLAUDETTE*] 2.5 mg INH QID PRN 07/28/18 [History Confirmed 07/28/18] Ipratropium 0.5MG/2.5ML NEB* [Atrovent 0.5 MG NEB.CLAUDETTE*] 0.5 mg INH TID PRN 07/28 [History Confirmed 07/28/18] PMH/Surg Hx/FS Hx/Imm Hx Endocrine/Hematology History: Reports: Hx Diabetes - T2DM Denies: Hx Anticoagulant Therapy, Hx Blood Disorders, Hx Blood Transfusions, Hx Bone Marrow Disease, Hx Systemic Lupus Erythematosus, Hx Sickle Cell Disease , Hx Thyroid Disease, Hx Anemia, Hx Unexplained Bleeding, Other Endocrine/ Hematological Disorders Cardiovascular History: Reports: Hx Angina, Hx Hypercholesterolemia, Hx Hypertension, Hx Syncope Denies: Hx Aneurysm, Hx Angioplasty, Hx Auto Implanted Cardiovert Defib, Hx Cardiac Arrest, Hx Cardiomegaly, Hx Congenital Heart Disease, Hx Congestive Heart Failure, Hx Coronary Artery Disease, Hx Deep Vein Thrombosis, Hx Embolism , Hx Hypotension, Hx Pacemaker/ICD, Hx Peripheral Vascular Disease, Hx Rheumatic Fever, Hx Valvular Heart Disease, Other Cardiovascular Problems/ Disorders Respiratory History: Reports: Hx Asthma - copd, Hx Chronic Obstructive Pulmonary Disease (COPD) - home CPAP, Hx Sleep Apnea Denies: Hx Chronic Bronchitis, Hx Cystic Fibrosis, Hx Lung Cancer, Hx Pleural Effusion, Hx Pneumonia, Hx Pulmonary Edema, Hx Pulmonary Embolism, Hx Seasonal Allergies Comment Only: Other Respiratory Problems/Disorders - copd, o2 2l at night GI History: Denies: Hx Cirrhosis, Hx Crohn's Disease, Hx Diverticulosis, Hx Gall Bladder Disease, Hx Gastroesophageal Reflux Disease, Hx Gastrointestinal Bleed, Hx Hiatal Hernia, Hx Irritable Bowel, Hx Jaundice, Hx Obstructive Bowel, Hx Ileostomy, Hx Pyloric Stenosis, Hx Ulcer, Other GI Disorders History: Reports: Hx Benign Prostatic Hyperplasia, Hx Kidney Stones Denies: Hx Acute Renal Failure, Hx Chronic Renal Failure, Hx Dialysis, Hx Kidney Infection, Other Problems/Disorders Musculoskeletal History: Denies: Hx Arthritis, Hx Back Problems, Hx Bursitis, Hx Congenital Bone Abnormalities, Hx Fibromyalgia, Hx Gout, Hx Orthopedic Injury, Hx Osteoporosis, Hx Scoliosis, Hx Tendonitis, Other Musculoskeletal History Sensory History: Reports: Hx Contacts or Glasses Denies: Hx Cataracts, Hx Eye Injury, Hx Eye Prosthesis, Hx Glaucoma, Hx Legally Blind, Hx Macular Degeneration, Hx Vision Problem, Hx Deafness, Hx Hearing Aid, Hx Hearing Problem, Other Sensory Impairments Opthamlomology History: Reports: Hx Contacts or Glasses Denies: Hx Cataracts, Hx Eye Injury, Hx Eye Prosthesis, Hx Glaucoma, Hx Legally Blind, Hx Macular Degeneration, Hx Vision Problem, Other Sensory Impairments Neurological History: Reports: Other Neuro Impairments/Disorders - passed out a few times after coughing attack Denies: Hx Dementia, Hx Developmental Delay, Hx Headaches, Hx Migraine, Hx Nerve Disease, Hx Seizures, Hx Spinal Cord Injury, Hx Transient Ischemic Attacks (TIA) Psychiatric History: Denies: Hx Anxiety, Hx Attention Deficit Hyperactivity Disorder, Hx Eating Disorder, Hx Depression, Hx Panic Disorder, Hx Post Traumatic Stress Disorder, Hx Inpatient Treatment, Hx Community Mental Health Tx, Hx Schizophrenia, Hx Bipolar Disorder, Hx Suicide Attempt, Hx of Violent Episodes Against Others, Hx Substance Abuse, Other Psychiatric Issues/Disorders - Cancer History Hx Chemotherapy: No Hx Radiation Therapy: No Hx Palliative Cancer Treatment: No - Surgical History Surgery Procedure, Year, and Place: APPY, KIDNEY STONE RETRIEVAL,FISTULA REPAIR Hx Anesthesia Reactions: No Infectious Disease History: No Infectious Disease History: Denies: Hx Clostridium Difficile, Hx Hepatitis, Hx Human Immunodeficiency Virus (HIV), Hx of Known/Suspected MRSA, Hx Shingles, Hx Tuberculosis, History Other Infectious Disease, Traveled Outside the [place] in Last 30 Days - Family History Known Family History: Positive: Hypertension Negative: Diabetes - Social History Alcohol Use: None Alcohol Amount: 2+ cocktails daily Hx Substance Use: No Substance Use Type: Reports: None Hx Tobacco Use: Yes - former smoker Smoking Status (MU): Former Smoker Type: Cigarettes Amount Used/How Often: 5 cigs per day for 45 years Have You Smoked in the Last Year: Yes Review of Systems Positive: Fever Eyes: Negative ENT: Negative Positive: Chest Pain Positive: Shortness Of Breath Gastrointestinal: Negative Genitourinary: Negative Musculoskeletal: Negative Skin: Negative Neurological: Negative Psychological: Normal All Other Systems Reviewed And Are Negative: Yes Physical Exam Triage Information Reviewed: Yes Vital Signs On Initial Exam: Initial Vitals Temp Pulse Resp BP Pulse Ox 101.7 F 122 24 132/73 88 07/28/18 15:21 07/28/18 15:21 07/28/18 15:21 07/28/18 15:21 07/28/18 15:21 Vital Signs Reviewed: Yes Appearance: Positive: Well-Appearing Skin: Positive: Warm Head/Face: Positive: Normal Head/Face Inspection Eyes: Positive: Normal Neck: Positive: Supple Respiratory/Lung Sounds: Positive: Clear to Auscultation Cardiovascular: Positive: Normal Abdomen Description: Positive: Nontender Musculoskeletal: Positive: Normal Neurological: Positive: Normal Psychiatric: Positive: Normal AVPU Assessment: Alert - Jahaira Coma Scale Best Eye Response: 4 - Spontaneous Best Motor Response: 6 - Obeys Commands Best Verbal Response: 5 - Oriented Coma Scale Total: 15 Diagnostics - Vital Signs Vital Signs Temp Pulse Resp BP Pulse Ox 07/28/18 15:47 114 96 07/28/18 15:45 94 07/28/18 15:38 121 120/91 96 07/28/18 15:21 101.7 F 122 24 132/73 88 - Laboratory Lab Results: Lab Results 07/28/18 Range/Units 15:41 WBC 16.2 H (3.5-10.8) 10^3/ul RBC 4.63 (4.00-5.40) 10^6/ul Hgb 15.0 (14.0-18.0) g/dl Hct 44 (42-52) % MCV 95 H (80-94) fL MCH 33 H (27-31) pg MCHC 34 (31-36) g/dl RDW 14 (10.5-15) % Plt Count 176 (150-450) 10^3/ul MPV 7.9 (7.4-10.4) fL Neut % (Auto) 86.4 % Lymph % (Auto) 4.8 % [place] % (Auto) 8.3 % Eos % (Auto) 0 % Baso % (Auto) 0.5 % Absolute Neuts (auto) 14.0 H (1.5-7.7) 10^3/ul Absolute Lymphs (auto) 0.8 L (1.0-4.8) 10^3/ul Absolute Monos (auto) 1.3 H (0-0.8) 10^3/ul Absolute Eos (auto) 0 (0-0.6) 10^3/ul Absolute Basos (auto) 0.1 (0-0.2) 10^3/ul Absolute Nucleated RBC 0 10^3/ul Nucleated RBC % 0 Result Diagrams: 07/28/18 15:41 07/28/18 15:41 Lab Statement: Any lab studies that have been ordered have been reviewed, and results considered in the medical decision making process. - EKG 1 Cardiac Rate: Tachycardia EKG Rhythm: Sinus Tachycardia - irregulare rate ST Segment: Non-Specific EKG Comparison: No Significant Change Course/Dx - Course Course Of Treatment: Patient complains of subjective fever x 2 days, SOB and mild left-sided chest pain starting last night. Patient normally on home O2 at 2 L at night, started at 3L 24/7 last night and increased to 4L this morning. Left-sided chest pain described as mild, intermittent lasting seconds at a time , sharp, exertional. Denies new cough, ALVARENGA, sore throat, neck stiffness, N/V/D, abdominal pain, new onset peripheral edema, change in urine, change in BM. Also denies history of blood clots, recent surgery or trauma, hospital admission and past 3 months, long travel, new immobility. Medical history is DM 2, COPD, HTN, syncope, HDL, obesity. Denies prior cardiac history. Denies family cardiac history. Positive smoker no anti-coag. Physical exam unremarkable. Patient febrile and tachycardic. Requiring O2 4 L 24/7, baseline O2 2 L at night only. WBC 16.2. Lactic unremarkable. PO2 50. Chest x-ray positive for left lower lobe infiltrate. Patient started on Rocephin and azithromycin. Admitted to hospitalist. - Diagnoses Provider Diagnoses: Pneumonia, Hypoxia Discharge - Sign-Out/Discharge Documenting (check all that apply): Patient Departure - Discharge Plan Condition: Stable Disposition: ADMITTED TO [facility] - Billing Disposition and Condition Condition: STABLE Disposition: Admitted to [facility]
[2018-07-28 16:06] LABS: EGFR Non-African American 57.6 (>60)
[2018-07-28] MEDS ORDERED: Azithromycin IV(*) 500 MG in NS 0.9% 250 ML* 250 ML IVPB ONE (17:21)
[2018-07-28] MEDS ORDERED: cefTRIAXone(*) 1 GM in NS 0.9% 50 ML* 50 ML IVPB ONE (17:21)
[2018-07-28] MEDS ORDERED: Azithromycin IV* 500 MG ADVAN VIAL/BAG IVPB ONE (17:23)
[2018-07-28] MEDS ORDERED: cefTRIAXone(*) 1 GM ADVAN/BAG ONE (17:23)
[2018-07-28] MEDS ORDERED: Albuterol 2.5 MG/3 ML NEB.SOL* (0.083%) INH PRN (17:56)
[2018-07-28] MEDS ORDERED: Acetaminophen TAB* 325 MG PO PRN (17:56)
[2018-07-28] MEDS ORDERED: NS 0.9% 1000 ML*IV.FLUID IV ONE (17:56)
[2018-07-28] MEDS ORDERED: Potassium Chlor TAB* 20 MEQ TAB.ER PO ONE (17:56)
[2018-07-28] MEDS ORDERED: Dextrose 50% Syringe 50 ML* 25 GM/50 ML SYRINGE IV PUSH PRN (17:56)
[2018-07-28] MEDS ORDERED: NS 0.9% 1000 ML* 1,000 ML IV SCH (18:15)
[2018-07-28] MEDS ORDERED: LORazepam TAB(*) 1 MG PO SCH (19:00)
[2018-07-28 19:28] LABS: INR 1.38 (0.77-1.02)
[2018-07-28] MEDS: Albuterol/Ipratropium NEB.SOL* Albuterol 2.5 MG/Ipratropium 0.5 MG 3 ML INH SCH ×2 (19:39→23:19)
[2018-07-28] MEDS: Tamsulosin CAP* 0.4 MG PO SCH (20:26)
[2018-07-28] MEDS: methylPREDNISolone 125 MG* 2 ML VIAL IV SCH (20:27)
[2018-07-28] MEDS: Mometasone/Formoter 200/5 MDI INH SCH ×2 (20:47→23:22)
[2018-07-28] MEDS: Heparin VIAL(*) 5000 UNITS/ML VIAL (FIVE THOUSAND) SUBCUT SCH (21:25)
[2018-07-28] MEDS: CMCS:Simvastatin TAB(NF) 10 MG TAB PO SCH (21:25)
--- NOTE | 2018-07-28 22:15 | HP ---
CC: Lluvia Stevens NP * HISTORY AND PHYSICAL: DATE OF ADMISSION: 07/28/18. PRIMARY CARE PROVIDER: Lluvia Stevens NP. MY ATTENDING PHYSICIAN WHILE IN THE HOSPITAL: Dr. Stefany Buchanan * (report dictated by Jeromy Torrez NP) CHIEF COMPLAINT: 1. Shortness of breath. 2. Cough. 3. Rhinorrhea. HISTORY OF PRESENT ILLNESS: Mr. Taylor is a 72-year-old male patient. He has a history of diabetes, COPD, hypertension, hyperlipidemia, obesity, BPH, MYRON, on CPAP at night, history of nephrolithiasis, and anal fissure, who presents to our ER today stating that last couple days, he has had progressive worsening shortness of breath. He has had associated rhinorrhea, cough at times. He has noticed that whenever he takes his oxygen off, his O2 saturations drop precipitously. He has noticed that despite him trying to increase his oxygen and wear his oxygen round- the-clock, he just has not been feeling well. His partner noted today that he was very warm to touch. She is concerned that he may have a fever, but he was just not getting any better by this evening. He again was noted to be having some rhinorrhea, cough, and just more short of breath particularly with exertion and just not feeling very well. He was concerned and came into the ER. Of note, he has been smoking again up to a pack a day. He denies any chest pain. Denies any vomiting or diarrhea. He states that he has been coughing. It has been very nonproductive at times. He states that he does get pain in his chest when he does cough, but he was concerned because of the fact that he just was not getting any better, came into the ED today. He was noted to be febrile, noted to have an infiltrate. In addition of this, noted to be requiring an increased O2 requirement, and because of this we are asked to evaluate for admission. PAST MEDICAL HISTORY: Significant for: 1. Diabetes. 2. COPD. 3. Hypertension. 4. Hyperlipidemia. 5. Obesity. 6. BPH. 7. MYRON. 8. Nephrolithiasis. 9. Anal fissure. PAST SURGICAL HISTORY: 1. He has had an appendectomy. 2. Vasectomy. 3. He has had a kidney stone removal. MEDICATIONS: Home medications include: 1. Breo 1 puff inhaled daily. 2. Atrovent 0.5 mg inhaled t.i.d. as needed. 3. Albuterol 2.5 mg inhaled 4 times a day as needed. 4. Zocor 10 mg at bedtime. 5. Lantus 40 units subcu daily. 6. Hydrochlorothiazide 25 mg daily. 7. Multivitamin 1 tablet daily. 8. Incruse Ellipta 62.5 mcg inhaled daily. 9. Flomax 0.4 mg p.o. q.p.m. 10. Ventolin 2 puffs inhaled every 4 hours as needed. ALLERGIES: Allergies to medications include AMOXICILLIN and OXYCODONE. FAMILY HISTORY: His mother in a MVA. His father had a history of colon cancer. SOCIAL HISTORY: He is currently smoking, he has been smoking since he was a teenager, off and on. He does drink 2 to 3 drinks a day. Surrogate decision maker is his son, Sigifredo and partner, Jes. REVIEW OF SYSTEMS: There is a documented fever here. He did admit more in the home. Denies having any significant weight change. There is no double vision. He denies having any ear discharge. There was no rhinorrhea. There was no sore throat, no thyroid enlargement. Denied having any chest pain. He subsequently does cough. He does admit to dyspnea on exertion. He denies having any abdominal pain. There is no nausea. There is no vomiting. There was no dysuria, no frequency. There was no seizure, no loss of consciousness, no pruritus, and no skin ulcerations. Review of 14 systems was completed, all others negative. PHYSICAL EXAMINATION GENERAL: At this time, Mr. Taylor is a 72-year-old male patient. He is morbidly obese. He does not appear to be in any acute distress. He is sitting in the ED stretcher. VITAL SIGNS: Blood pressure 112/69, pulse 107, respirations 16, O2 sat 96%. He is on 4 L. Temperature was 101.7. HEENT: Head: Atraumatic and normocephalic. Eyes: EOMs are intact. Sclerae anicteric, not pale. Throat: Oral mucosa appears to be dry. No oropharyngeal erythema. NECK: Supple. LUNGS: He was diminished in his left bilaterally. He had no wheezes. He had crackles in the left base. Equal diaphragmatic expansion. HEART: Sounds S1, S2. He is tachycardic. ABDOMEN: Soft, flat, nontender. Bowel sounds are present. EXTREMITIES: Pulses are 2+ throughout. 5/5 strength noted. No peripheral edema. NEUROLOGIC: He is awake, alert, and oriented x3. Speech clear. Tongue midline. No facial drooping. No gross focal deficits. SKIN: Intact. DIAGNOSTIC STUDIES/LAB DATA: WBC 16.2, RBC of 4.63, hemoglobin 15.0, hematocrit of 44, platelet count of 176. Blood gas, pH is 7.56, pCO2 of 36, pO2 of 50. His sodium was 135, potassium 3.2, chloride 93, bicarb 31, BUN 22, creatinine 1.24, glucose 162, lactic 1.8, calcium 9.4. Total bili 1.3, AST 17, ALT 22, alk phos 86. Troponin 0.01, BNP 128, albumin of 4.1. He had a chest x-ray obtained today, impression: Small left basilar infiltrate COPD. EKG obtained today shows sinus tachycardia, rate of 120 with right bundle - branch block and PAC noted. He had his previous EKG, it is similar. His right bundle-branch block with multiple focal tachycardia, but appears to be unchanged. Old medical records were reviewed. ASSESSMENT AND PLAN: Mr. Taylor is a 72-year-old male patient, coming into the emergency department today, complaints of cough, shortness of breath, evaluation found to have fever. He will be admitted under inpatient status for: 1. Sepsis secondary to pneumonia and chronic obstructive pulmonary disease exacerbation. At this point, I will go ahead and place the patient on community acquired pneumonia antibiotics in the form of Rocephin and azithromycin. I will get a legionella antigen and Strep pneumo antigen and check him for the flu. I will also get him 30 cc/kg bolus and then I will start maintenance fluid about 100 mL an hour therefore after. He has been pancultured. We will continue to follow. I have ordered nebulizers. I will place him on Dulera. I also will place him on Solu-Medrol 60 q.12. We will continue with aggressive pulmonary toileting and I will continue to follow. 2. Diabetes. He will be on a lispro sliding scale and Lantus. We will need to monitor her sugar while on steroids. 3. Chronic obstructive pulmonary disease with exacerbation secondary to pneumonia. We will treat the pneumonia with IV antibiotics. In addition to this , I have ordered nebs every 4 hours, DuoNeb, p.r.n. albuterol, inhaled steroids , and IV steroids, and will continue to treat aggressively. 4. Hypertension. I am holding his hydrochlorothiazide in the setting of acute illness. We will restart when able. 5. History of benign prostatic hypertrophy. Continue with Flomax. 6. Obstructive sleep apnea. We have ordered his CPAP. 7. DVT prophylaxis: He will be placed on heparin subcu. 8. Code status: He is a full code. 9. Fluids, electrolytes, and nutrition. He can have a consistent carb diet. TIME SPENT: On admission was 60 minutes, greater than half of the time was spent [id number] with the patient obtaining my history and physical, other half of the time was spent going over the plan of care with the patient and implementing the plan of care. I did discuss the plan of care with my attending, Dr. Buchanan, she is in agreement. JEROMY TORREZ, BONNIE [id number]/CPS #: [id number] KORINA
[2018-07-28 22:53] LABS: Urine Appearance Cloudy; Urine Blood 1+ (Negative); Urine Color Amber; Urine Ketones Trace (Negative); Urine Protein Negative (Negative); Urine Red Blood Cell 3+(>10/hpf) (Absent); Urine Specific Gravity 1.024 (1.010-1.030); Urine Urobilinogen Negative (Negative); Urine White Blood Cell Trace(0-5/hpf) (Absent)
[2018-07-29] MEDS: Albuterol/Ipratropium NEB.SOL* Albuterol 2.5 MG/Ipratropium 0.5 MG 3 ML INH SCH ×4 (03:02→19:32)
[2018-07-29] MEDS: Heparin VIAL(*) 5000 UNITS/ML VIAL (FIVE THOUSAND) SUBCUT SCH ×3 (05:08→21:27)
[2018-07-29 06:14] LABS: ABS Basophils 0.1 10^3/ul (0-0.2); ABS Eosinophils 0 10^3/ul (0-0.6); ABS Lymphocytes 0.5 10^3/ul (1.0-4.8); ABS Monocytes 0.3 10^3/ul (0-0.8); ABS Neutrophils 9.5 10^3/ul (1.5-7.7); ABS Nucleated RBC 0 10^3/ul; Eosinophil % 0 %; Hematocrit 40 % (42-52); Hemoglobin 13.6 g/dl (14.0-18.0); Lymphocyte % 4.9 %; Mean Corpuscular HGB Conc 34 g/dl (31-36); Mean Corpuscular Hemoglobin 33 pg (27-31); Mean Corpuscular Volume 97 fL (80-94); Mean Platelet Volume 8.7 fL (7.4-10.4); Nucleated Red Blood Cells % 0; Platelet Count 133 10^3/ul (150-450); Red Cell Distribution Width 14 % (10.5-15); White Blood Count 10.5 10^3/ul (3.5-10.8)
[2018-07-29 06:23] LABS: INR 1.27 (0.77-1.02)
[2018-07-29 06:33] LABS: EGFR Non-African American 77.4 (>60)
[2018-07-29] MEDS: Mometasone/Formoter 200/5 MDI INH SCH ×2 (07:28→19:32)
[2018-07-29] MEDS: Insulin GLARGINE(*) 1 UNITS UNIT SUBCUT SCH (08:48)
[2018-07-29] MEDS: Insulin LISPRO* 1 UNITS UNIT SUBCUT SCH ×3 (08:48→17:48)
[2018-07-29] MEDS: Thiamine TAB* 100 MG TAB PO SCH (08:49)
[2018-07-29] MEDS: Folic Acid TAB* 1 MG PO SCH (08:49)
[2018-07-29] MEDS: methylPREDNISolone 125 MG* 2 ML VIAL IV SCH (08:50)
[2018-07-29] MEDS: Multivitamins/Minerals TAB PO SCH (08:50)
--- NOTE | 2018-07-29 10:25 | PN ---
Subjective Date of Service: 07/29/18 Interval History: Pt resting comfortably in bed. Reports shortness of breath and cough are both improved from yesterday and feeling better overall. Breathing is comfortable on 3L NC and satting 95%. Pt's appetite has returned and he ate a full breakfast. Denies chest pain, headache, dizziness, N/V/D/C, abdominal pain, numbness or tingling in extremities. Objective Active Medications: Acetaminophen (Tylenol Tab*) 650 mg PO Q4H PRN PRN Reason: FEVER/PAIN Last Admin: 07/28/18 20:26 Dose: 650 mg Albuterol (Ventolin 2.5 Mg/3 Ml Neb.Tory*) 2.5 mg INH Q4H PRN PRN Reason: SOB/WHEEZING Albuterol/Ipratropium (Duoneb (Albuterol 2.5 Mg/Ipratropium 0.5 Mg)) 1 neb INH [id number] AWAKE [facility] Dextrose (D50w Syringe 50 Ml*) 12.5 gm IV PUSH .FOR FS < 60 - SS PRN PRN Reason: FS < 60 Folic Acid (Folvite Tab*) 1 mg PO DAILY [facility] Last Admin: 07/29/18 08:49 Dose: 1 mg Heparin Sodium (Porcine) (Heparin Vial(*)) 5,000 units SUBCUT Q8HR [facility] Last Admin: 07/29/18 05:08 Dose: 5,000 units Ceftriaxone Sodium 1 gm/ (Sodium Chloride) 50 mls @ 200 mls/hr IVPB Q24H [facility] Azithromycin 500 mg/ Sodium (Chloride) 250 mls @ 250 mls/hr IVPB Q24H [facility] Insulin Glargine (Lantus(*)) 40 units SUBCUT DAILY [facility] Last Admin: 07/29/18 08:48 Dose: 40 units Insulin Human Lispro (Humalog*) 0 units SUBCUT AC [facility]; Protocol Last Admin: 07/29/18 08:48 Dose: 3 units Lorazepam (Ativan Tab(*)) 0 - 6 mg PO .PER [facility] PROTOCOL [facility]; Protocol Methylprednisolone Sodium Succinate (Solu-Medrol 125mg *) 60 mg IV Q12H [facility] Last Admin: 07/29/18 08:50 Dose: 60 mg Mometasone Furoate/Formoterol Fumar (Dulera 200/5 Mdi*) 2 puff INH BID [facility] Last Admin: 07/29/18 07:28 Dose: 2 puff Multivitamins/Minerals (Theragran/Minerals Tab*) 1 tab PO DAILY [facility] Last Admin: 07/29/18 08:50 Dose: 1 tab Simvastatin (Zocor(Nf)) 10 mg PO BEDTIME [facility] Last Admin: 07/28/18 21:25 Dose: 10 mg Tamsulosin HCl (Flomax Cap*) 0.4 mg PO QPM [facility] Last Admin: 07/28/18 20:26 Dose: 0.4 mg Thiamine HCl (Vitamin B-1 Tab*) 100 mg PO DAILY [facility] Last Admin: 07/29/18 08:49 Dose: 100 mg Vital Signs - 8 hr 07/29/18 07/29/18 07/29/18 03:24 07:22 07:55 Temperature 97.7 F 97.3 F Pulse Rate 69 81 85 Respiratory 16 16 20 Rate Blood Pressure 114/66 111/58 (mmHg) O2 Sat by Pulse 97 98 95 Oximetry Oxygen Devices in Use Now: Nasal Cannula Eyes: No Scleral Icterus, PERRLA Ears/Nose/Mouth/Throat: NL Teeth, Lips, Gums, Clear Oropharnyx, Mucous Membranes Moist Neck: NL Appearance and Movements; NL JVP, Trachea Midline Respiratory: Symmetrical Chest Expansion and Respiratory Effort, Clear to Auscultation Cardiovascular: NL Sounds; No Murmurs; No JVD, RRR, No Edema Abdominal: NL Sounds; No Tenderness; No Distention Skin: No Rash or Ulcers, No Nodules or Sclerosis Neurological: Alert and Oriented x 3, NL Muscle Strength and Tone Lines/Tubes/Other Access: Clean, Dry and Intact Peripheral IV Result Diagrams: 07/29/18 05:45 07/29/18 05:45 Additional Lab and Data: Lab Results 07/28/18 Range/Units 15:41 WBC 16.2 H (3.5-10.8) 10^3/ul RBC 4.63 (4.00-5.40) 10^6/ul Hgb 15.0 (14.0-18.0) g/dl Hct 44 (42-52) % MCV 95 H (80-94) fL MCH 33 H (27-31) pg MCHC 34 (31-36) g/dl RDW 14 (10.5-15) % Plt Count 176 (150-450) 10^3/ul MPV 7.9 (7.4-10.4) fL Neut % (Auto) 86.4 % Lymph % (Auto) 4.8 % [place] % (Auto) 8.3 % Eos % (Auto) 0 % Baso % (Auto) 0.5 % Absolute Neuts (auto) 14.0 H (1.5-7.7) 10^3/ul Absolute Lymphs (auto) 0.8 L (1.0-4.8) 10^3/ul Absolute Monos (auto) 1.3 H (0-0.8) 10^3/ul Absolute Eos (auto) 0 (0-0.6) 10^3/ul Absolute Basos (auto) 0.1 (0-0.2) 10^3/ul Absolute Nucleated RBC 0 10^3/ul Nucleated RBC % 0 Microbiology and Other Data: Microbiology 07/28/18 22:22 Legionella Urinary Antigen - Final Urine Negative Legionella Antigen Streptococcus pneumoniae Ag Screen - Final Negative S. pneumo Antigen 07/28/18 22:28 Influenza Types A,B Antigen - Final Nasopharyngeal Specimen received for Influenza A/B Molecular testing Assess/Plan/Problems-Billing Assessment: Mr Taylor is a 72 year old male with a PMH COPD (on 2L O2 at night only), MYRON, DM, HTN, HLD whoe presented with increasing O2 requirements and SOB , non-productive cough and subjective fevers. Febrile in ED with infiltrate on CXR, Po2 50, admitted for CAP and COPD exacerbation. On azithro, ceftriaxone, solumedrol, duonebs. - Patient Problems (1) PNA (pneumonia) Current Visit: No Status: Acute Priority: High Code(s): J18.9 - PNEUMONIA , UNSPECIFIED ORGANISM SNOMED Code(s): 810504583 Comment: - Pt's shortness of breath and cough improved since yesterday - Continue treatment with supportive O2, IV ceftriaxone and azithro, duonebs, steroids and pulmonary toileting. - Urine strep and legionella negative. Flu negative. (2) COPD exacerbation Current Visit: No Status: Acute Priority: High Code(s): J44.1 - CHRONIC OBSTRUCTIVE PULMONARY DISEASE W (ACUTE) EXACERBATION SNOMED Code(s): 514932506666429 Comment: - Shortness of breath improving, however still requiring 3L O2. No wheezing on exam. - Received 120mg solumedrol so far. Will titrate down to 40mg IV Q12H. Can transition to PO if oxygenation continues to improve. Pt to try ambulation today. - Continue dulera, scheduled duonebs, prn albuterol (3) Sepsis Current Visit: No Status: Acute Priority: High Comment: - Secondary to pneumonia - Resolving with ceftraiaxone and azithro, as well as IVF supplimentation ( sepsis bolus followed by NS 100mL/hr). No additional fevers, tachycardia and leukocytosis resolved. - Blood cultures with no growth to date. UA negative. (4) BPH (benign prostatic hyperplasia) Current Visit: No Status: Chronic Priority: High Code(s): N40.0 - BENIGN PROSTATIC HYPERPLASIA WITHOUT LOWER URINRY TRACT SYMP SNOMED Code(s): 541865879 Comment: - Continue tamsulosin (5) HTN (hypertension) Current Visit: No Status: Chronic Priority: High Code(s): I10 - ESSENTIAL (PRIMARY) HYPERTENSION SNOMED Code(s): 50183777 Comment: - Holding HCTZ in setting of sepsis. Will continue to hold as SBPs have been low 100s-110s. (6) Diabetes Current Visit: Yes Status: Acute Code(s): E11.9 - TYPE 2 DIABETES MELLITUS WITHOUT COMPLICATIONS SNOMED Code(s): 09494637 Comment: - BG < 180. On glargine, which he takes at home, and lispro sliding scale. Eating meals and on steroids, so will continue to montior and consider adding mealtime insuin if necessary. (7) DVT prophylaxis Current Visit: No Status: Acute Priority: High Code(s): GWW3949 - SNOMED Code(s): 871230794 Comment: - SQ heparin (8) Full code status Current Visit: No Status: Acute Priority: High Code(s): Z78.9 - OTHER SPECIFIED HEALTH STATUS SNOMED Code(s): 171445287 Status and Disposition: Inpatient.
[2018-07-29] MEDS ORDERED: methylPREDNISolone 125 MG* 2 ML VIAL IV SCH (10:35)
[2018-07-29] MEDS: cefTRIAXone(*) 1 GM in NS 0.9% 50 ML* 50 ML IVPB SCH (17:59)
[2018-07-29] MEDS: Azithromycin IV(*) 500 MG in NS 0.9% 250 ML* 250 ML IVPB SCH (18:59)
[2018-07-29] MEDS: Tamsulosin CAP* 0.4 MG PO SCH (19:13)
[2018-07-29] MEDS: CMCS:Simvastatin TAB(NF) 10 MG TAB PO SCH (21:27)
[2018-07-29] MEDS: methylPREDNISolone SOD 40 MG* 1 ML VIAL IV SCH (21:28)
[2018-07-30] MEDS: Albuterol/Ipratropium NEB.SOL* Albuterol 2.5 MG/Ipratropium 0.5 MG 3 ML INH SCH ×4 (01:07→20:23)
[2018-07-30] MEDS: Heparin VIAL(*) 5000 UNITS/ML VIAL (FIVE THOUSAND) SUBCUT SCH ×3 (05:12→21:00)
[2018-07-30 07:23] LABS: ABS Basophils 0 10^3/ul (0-0.2); ABS Eosinophils 0 10^3/ul (0-0.6); ABS Lymphocytes 0.5 10^3/ul (1.0-4.8); ABS Monocytes 0.7 10^3/ul (0-0.8); ABS Nucleated RBC 0 10^3/ul; Eosinophil % 0 %; Hematocrit 38 % (42-52); Lymphocyte % 4.1 %; Mean Corpuscular HGB Conc 34 g/dl (31-36); Mean Corpuscular Hemoglobin 33 pg (27-31); Mean Corpuscular Volume 97 fL (80-94); Nucleated Red Blood Cells % 0; Platelet Count 168 10^3/ul (150-450); Red Blood Count 3.96 10^6/ul (4.00-5.40); Red Cell Distribution Width 14 % (10.5-15); White Blood Count 13.3 10^3/ul (3.5-10.8)
[2018-07-30] MEDS: Mometasone/Formoter 200/5 MDI INH SCH ×2 (07:28→20:23)
[2018-07-30 07:44] LABS: EGFR Non-African American 76.5 (>60)
[2018-07-30] MEDS: Folic Acid TAB* 1 MG PO SCH (08:59)
[2018-07-30] MEDS: Insulin LISPRO* 1 UNITS UNIT SUBCUT SCH ×3 (08:59→17:16)
[2018-07-30] MEDS: Insulin GLARGINE(*) 1 UNITS UNIT SUBCUT SCH (08:59)
[2018-07-30] MEDS: Thiamine TAB* 100 MG TAB PO SCH (08:59)
[2018-07-30] MEDS: Multivitamins/Minerals TAB PO SCH (08:59)
[2018-07-30] MEDS: methylPREDNISolone SOD 40 MG* 1 ML VIAL IV SCH ×2 (08:59→21:00)
--- NOTE | 2018-07-30 14:05 | PN ---
Subjective Date of Service: 07/30/18 Interval History: Pt resting comfortably in bed. Reports shortness of breath continues to steadily improve at rest. Was still significantly short of breath when he took a walk with his nurse without O2. Does report feeling like he has sputum in his lungs that he is unable to clear. He denies chest pain, shortness of breath, headache, dizziness, N/V, abdominal pain, dysuria, suprapubic pain, flank pain. Reports having a good appetite and taking in fluids. Objective Active Medications: Acetaminophen (Tylenol Tab*) 650 mg PO Q4H PRN PRN Reason: FEVER/PAIN Last Admin: 07/28/18 20:26 Dose: 650 mg Albuterol (Ventolin 2.5 Mg/3 Ml Neb.Tory*) 2.5 mg INH Q4H PRN PRN Reason: SOB/WHEEZING Albuterol/Ipratropium (Duoneb (Albuterol 2.5 Mg/Ipratropium 0.5 Mg)) 1 neb INH [id number] AWAKE [facility] Last Admin: 07/30/18 14:03 Dose: 1 neb Dextrose (D50w Syringe 50 Ml*) 12.5 gm IV PUSH .FOR FS < 60 - SS PRN PRN Reason: FS < 60 Folic Acid (Folvite Tab*) 1 mg PO DAILY [facility] Last Admin: 07/30/18 08:59 Dose: 1 mg Heparin Sodium (Porcine) (Heparin Vial(*)) 5,000 units SUBCUT Q8HR [facility] Last Admin: 07/30/18 05:12 Dose: 5,000 units Ceftriaxone Sodium 1 gm/ (Sodium Chloride) 50 mls @ 200 mls/hr IVPB Q24H [facility] Last Admin: 07/29/18 17:59 Dose: 200 mls/hr Azithromycin 500 mg/ Sodium (Chloride) 250 mls @ 250 mls/hr IVPB Q24H [facility] Last Admin: 07/29/18 18:59 Dose: 250 mls/hr Insulin Glargine (Lantus(*)) 40 units SUBCUT DAILY [facility] Last Admin: 07/30/18 08:59 Dose: 40 units Insulin Human Lispro (Humalog*) 0 units SUBCUT AC [facility]; Protocol Last Admin: 07/30/18 12:06 Dose: 6 units Lorazepam (Ativan Tab(*)) 0 - 6 mg PO .PER [facility] PROTOCOL [facility]; Protocol Methylprednisolone Sodium Succinate (Solu-Medrol 40 Mg) 40 mg IV Q12H [facility] Last Admin: 07/30/18 08:59 Dose: 40 mg Mometasone Furoate/Formoterol Fumar (Dulera 200/5 Mdi*) 2 puff INH BID [facility] Last Admin: 07/30/18 07:28 Dose: 2 puff Multivitamins/Minerals (Theragran/Minerals Tab*) 1 tab PO DAILY [facility] Last Admin: 07/30/18 08:59 Dose: 1 tab Simvastatin (Zocor(Nf)) 10 mg PO BEDTIME [facility] Last Admin: 07/29/18 21:27 Dose: 10 mg Tamsulosin HCl (Flomax Cap*) 0.4 mg PO QPM [facility] Last Admin: 07/29/18 19:13 Dose: 0.4 mg Thiamine HCl (Vitamin B-1 Tab*) 100 mg PO DAILY [facility] Last Admin: 07/30/18 08:59 Dose: 100 mg Vital Signs - 8 hr 07/30/18 07/30/18 07/30/18 07:18 07:20 09:21 Temperature 97.6 F 97.4 F Pulse Rate 78 76 92 Respiratory 19 18 Rate Blood Pressure 129/63 113/47 (mmHg) O2 Sat by Pulse 98 97 93 Oximetry 07/30/18 11:07 Temperature 97.8 F Pulse Rate 86 Respiratory 18 Rate Blood Pressure 124/61 (mmHg) O2 Sat by Pulse 93 Oximetry Oxygen Devices in Use Now: Nasal Cannula Eyes: No Scleral Icterus, PERRLA Ears/Nose/Mouth/Throat: NL Teeth, Lips, Gums, Clear Oropharnyx, Mucous Membranes Moist Neck: NL Appearance and Movements; NL JVP, Trachea Midline Respiratory: Symmetrical Chest Expansion and Respiratory Effort - Expiratory wheeze in bilateral lower bases. Lung sounds diminished overall. Cardiovascular: NL Sounds; No Murmurs; No JVD, RRR, No Edema Abdominal: NL Sounds; No Tenderness; No Distention Extremities: No Edema, No Clubbing, Cyanosis Skin: No Rash or Ulcers Neurological: Alert and Oriented x 3, NL Sensation, NL Muscle Strength and Tone Lines/Tubes/Other Access: Clean, Dry and Intact Peripheral IV Result Diagrams: 07/30/18 06:54 07/30/18 06:54 Additional Lab and Data: Lab Results 07/28/18 Range/Units 15:41 WBC 16.2 H (3.5-10.8) 10^3/ul RBC 4.63 (4.00-5.40) 10^6/ul Hgb 15.0 (14.0-18.0) g/dl Hct 44 (42-52) % MCV 95 H (80-94) fL MCH 33 H (27-31) pg MCHC 34 (31-36) g/dl RDW 14 (10.5-15) % Plt Count 176 (150-450) 10^3/ul MPV 7.9 (7.4-10.4) fL Neut % (Auto) 86.4 % Lymph % (Auto) 4.8 % [place] % (Auto) 8.3 % Eos % (Auto) 0 % Baso % (Auto) 0.5 % Absolute Neuts (auto) 14.0 H (1.5-7.7) 10^3/ul Absolute Lymphs (auto) 0.8 L (1.0-4.8) 10^3/ul Absolute Monos (auto) 1.3 H (0-0.8) 10^3/ul Absolute Eos (auto) 0 (0-0.6) 10^3/ul Absolute Basos (auto) 0.1 (0-0.2) 10^3/ul Absolute Nucleated RBC 0 10^3/ul Nucleated RBC % 0 Microbiology and Other Data: Microbiology 07/28/18 22:22 Legionella Urinary Antigen - Final Urine Negative Legionella Antigen Streptococcus pneumoniae Ag Screen - Final Negative S. pneumo Antigen 07/28/18 22:28 Influenza Types A,B Antigen - Final Nasopharyngeal Specimen received for Influenza A/B Molecular testing Assess/Plan/Problems-Billing Assessment: Mr Taylor is a 72 year old male with a PMH COPD (on 2L O2 at night only), MYRON, DM, HTN, HLD whoe presented with increasing O2 requirements and SOB , non-productive cough and subjective fevers. Febrile in ED with infiltrate on CXR, Po2 50, admitted for CAP and COPD exacerbation. On azithro, ceftriaxone, solumedrol, duonebs. - Patient Problems (1) PNA (pneumonia) Current Visit: No Status: Acute Priority: High Code(s): J18.9 - PNEUMONIA , UNSPECIFIED ORGANISM SNOMED Code(s): 225260894 Comment: - Pt's shortness of breath continues to improve. Still with some cough and feels like he has sputum he is unable to cough up, so have added mucinex. - Satting well on 2L NC and will begin to titrate down at rest. - Continue treatment with supportive O2, IV ceftriaxone and azithro, duonebs, steroids and pulmonary toileting. - Urine strep and legionella negative. Flu negative. (2) COPD exacerbation Current Visit: No Status: Acute Priority: High Code(s): J44.1 - CHRONIC OBSTRUCTIVE PULMONARY DISEASE W (ACUTE) EXACERBATION SNOMED Code(s): 946024540904926 Comment: - Shortness of breath improving, however still requiring 2-3L O2. Some mild wheezing on exam today, so will continue 40mg IV solumedrol for today and consider switch to PO tomorrow if oxygenation continues to improve. - Continue dulera, scheduled duonebs, prn albuterol (3) Acute respiratory failure with hypoxia Current Visit: Yes Status: Acute Code(s): J96.01 - ACUTE RESPIRATORY FAILURE WITH HYPOXIA SNOMED Code(s): 16705193 Comment: - Secondary to CAP and COPD exacerbation. PaO2 on admission was 50 - Improving. O2 has been titrated down to 2L and pt's shortness of breath is improving (4) Sepsis Current Visit: No Status: Acute Priority: High Comment: - Secondary to pneumonia - Resolving with ceftraiaxone and azithro. BP stable. No additional fevers, tachycardia has resolved. Does have mild leukocytosis today, but this is in the setting of steroids. - Blood cultures with no growth to date. Urine culture with moderate staph epi, likely contamination and pt is asymptomatic. Pt is on ceftriaxone for his PNA anyway. (5) BPH (benign prostatic hyperplasia) Current Visit: No Status: Chronic Priority: High Code(s): N40.0 - BENIGN PROSTATIC HYPERPLASIA WITHOUT LOWER URINRY TRACT SYMP SNOMED Code(s): 491823588 Comment: - Continue tamsulosin (6) HTN (hypertension) Current Visit: No Status: Chronic Priority: High Code(s): I10 - ESSENTIAL (PRIMARY) HYPERTENSION SNOMED Code(s): 51065978 Comment: - Continue to hold HCTZ as pt has been normotensive (7) Diabetes Current Visit: Yes Status: Acute Code(s): E11.9 - TYPE 2 DIABETES MELLITUS WITHOUT COMPLICATIONS SNOMED Code(s): 01230550 Comment: - Continue glargine and sliding scale (8) Asymptomatic bacteriuria Current Visit: Yes Status: Acute Code(s): R82.71 - BACTERIURIA SNOMED Code (s): 086974439 Comment: - Patient without urinary symptoms, however pt is already on antibiotic therapy with ceftriaxone for his PNA (9) DVT prophylaxis Current Visit: No Status: Acute Priority: High Code(s): KZD5945 - SNOMED Code(s): 758850652 Comment: - SQ heparin (10) Full code status Current Visit: No Status: Acute Priority: High Code(s): Z78.9 - OTHER SPECIFIED HEALTH STATUS SNOMED Code(s): 925664283 Status and Disposition: Inpatient.
[2018-07-30] MEDS: cefTRIAXone(*) 1 GM in NS 0.9% 50 ML* 50 ML IVPB SCH (17:16)
[2018-07-30] MEDS: Tamsulosin CAP* 0.4 MG PO SCH (17:59)
[2018-07-30] MEDS: Azithromycin IV(*) 500 MG in NS 0.9% 250 ML* 250 ML IVPB SCH (17:59)
[2018-07-30] MEDS: CMCS:Simvastatin TAB(NF) 10 MG TAB PO SCH (21:00)
[2018-07-30] MEDS: guaiFENesin ER TAB 600 MG PO SCH (21:00)
[2018-07-31] MEDS: Albuterol/Ipratropium NEB.SOL* Albuterol 2.5 MG/Ipratropium 0.5 MG 3 ML INH SCH ×4 (00:50→20:22)
[2018-07-31] MEDS: Heparin VIAL(*) 5000 UNITS/ML VIAL (FIVE THOUSAND) SUBCUT SCH ×3 (05:38→21:08)
[2018-07-31 06:13] LABS: ABS Basophils 0 10^3/ul (0-0.2); ABS Eosinophils 0 10^3/ul (0-0.6); ABS Lymphocytes 0.6 10^3/ul (1.0-4.8); ABS Monocytes 0.5 10^3/ul (0-0.8); ABS Neutrophils 8.3 10^3/ul (1.5-7.7); ABS Nucleated RBC 0 10^3/ul; Eosinophil % 0 %; Hematocrit 38 % (42-52); Hemoglobin 12.7 g/dl (14.0-18.0); Lymphocyte % 6.5 %; Mean Corpuscular HGB Conc 34 g/dl (31-36); Mean Corpuscular Hemoglobin 33 pg (27-31); Mean Corpuscular Volume 97 fL (80-94); Mean Platelet Volume 8.7 fL (7.4-10.4); Nucleated Red Blood Cells % 0; Platelet Count 183 10^3/ul (150-450); Red Cell Distribution Width 14 % (10.5-15); White Blood Count 9.4 10^3/ul (3.5-10.8)
[2018-07-31 06:31] LABS: EGFR Non-African American 82.4 (>60)
[2018-07-31] MEDS: Mometasone/Formoter 200/5 MDI INH SCH ×2 (07:11→20:43)
[2018-07-31] MEDS: guaiFENesin ER TAB 600 MG PO SCH ×2 (08:24→21:08)
[2018-07-31] MEDS: Thiamine TAB* 100 MG TAB PO SCH (08:24)
[2018-07-31] MEDS: Folic Acid TAB* 1 MG PO SCH (08:25)
[2018-07-31] MEDS: Insulin GLARGINE(*) 1 UNITS UNIT SUBCUT SCH (08:25)
[2018-07-31] MEDS: methylPREDNISolone SOD 40 MG* 1 ML VIAL IV SCH ×2 (08:25→21:08)
[2018-07-31] MEDS: Insulin LISPRO* 1 UNITS UNIT SUBCUT SCH ×3 (08:25→17:12)
[2018-07-31] MEDS: Multivitamins/Minerals TAB PO SCH (08:25)
--- NOTE | 2018-07-31 11:33 | PN ---
Subjective Date of Service: 07/31/18 Interval History: Pt is resting comfortably. Reports shortness of breath continues to improve at rest. Has not yet walked today. Reports cough is improving as well, and is now expectorating with the help of Mucinex. Denies dizziness, chest pain, abdominal pain, N/V. Reports having a good appetite and drinking fluids. Objective Active Medications: Acetaminophen (Tylenol Tab*) 650 mg PO Q4H PRN PRN Reason: FEVER/PAIN Last Admin: 07/28/18 20:26 Dose: 650 mg Albuterol (Ventolin 2.5 Mg/3 Ml Neb.Tory*) 2.5 mg INH Q4H PRN PRN Reason: SOB/WHEEZING Albuterol/Ipratropium (Duoneb (Albuterol 2.5 Mg/Ipratropium 0.5 Mg)) 1 neb INH [id number] AWAKE [facility] 234 BEDS AT [facility] Last Admin: 07/31/18 07:09 Dose: 1 neb Dextrose (D50w Syringe 50 Ml*) 12.5 gm IV PUSH .FOR FS < 60 - SS PRN PRN Reason: FS < 60 Folic Acid (Folvite Tab*) 1 mg PO DAILY [facility] 234 BEDS AT [facility] Last Admin: 07/31/18 08:25 Dose: 1 mg Guaifenesin (Mucinex*) 600 mg PO BID [facility] 234 BEDS AT [facility] Last Admin: 07/31/18 08:24 Dose: 600 mg Heparin Sodium (Porcine) (Heparin Vial(*)) 5,000 units SUBCUT Q8HR [facility] 234 BEDS AT [facility] Last Admin: 07/31/18 05:38 Dose: 5,000 units Ceftriaxone Sodium 1 gm/ (Sodium Chloride) 50 mls @ 200 mls/hr IVPB Q24H [facility] 234 BEDS AT [facility] Last Admin: 07/30/18 17:16 Dose: 200 mls/hr Azithromycin 500 mg/ Sodium (Chloride) 250 mls @ 250 mls/hr IVPB Q24H [facility] 234 BEDS AT [facility] Last Admin: 07/30/18 17:59 Dose: 250 mls/hr Insulin Glargine (Lantus(*)) 40 units SUBCUT DAILY [facility] 234 BEDS AT [facility] Last Admin: 07/31/18 08:25 Dose: 40 units Insulin Human Lispro (Humalog*) 0 units SUBCUT AC [facility] 234 BEDS AT [facility]; Protocol Last Admin: 07/31/18 08:25 Dose: 3 units Lorazepam (Ativan Tab(*)) 0 - 6 mg PO .PER [facility] PROTOCOL [facility]; Protocol Methylprednisolone Sodium Succinate (Solu-Medrol 40 Mg) 40 mg IV Q12H [facility] 234 BEDS AT [facility] Last Admin: 07/31/18 08:25 Dose: 40 mg Mometasone Furoate/Formoterol Fumar (Dulera 200/5 Mdi*) 2 puff INH BID [facility] 234 BEDS AT [facility] Last Admin: 07/31/18 07:11 Dose: 2 puff Multivitamins/Minerals (Theragran/Minerals Tab*) 1 tab PO DAILY [facility] Last Admin: 07/31/18 08:25 Dose: 1 tab Simvastatin (Zocor(Nf)) 10 mg PO BEDTIME [facility] 234 BEDS AT [facility] Last Admin: 07/30/18 21:00 Dose: 10 mg Tamsulosin HCl (Flomax Cap*) 0.4 mg PO QPM [facility] 234 BEDS AT [facility] Last Admin: 07/30/18 17:59 Dose: 0.4 mg Thiamine HCl (Vitamin B-1 Tab*) 100 mg PO DAILY [facility] 234 BEDS AT [facility] Last Admin: 07/31/18 08:24 Dose: 100 mg Vital Signs - 8 hr 07/31/18 07/31/18 07/31/18 04:30 07:11 07:21 Temperature 98.0 F 97.5 F Pulse Rate 65 66 74 Respiratory 20 15 18 Rate Blood Pressure 126/74 132/69 (mmHg) O2 Sat by Pulse 99 95 95 Oximetry 07/31/18 07:43 Temperature Pulse Rate Respiratory 22 Rate Blood Pressure (mmHg) O2 Sat by Pulse Oximetry Oxygen Devices in Use Now: Nasal Cannula Eyes: No Scleral Icterus, PERRLA Ears/Nose/Mouth/Throat: NL Teeth, Lips, Gums, Clear Oropharnyx, Mucous Membranes Moist Neck: NL Appearance and Movements; NL JVP, Trachea Midline Respiratory: Symmetrical Chest Expansion and Respiratory Effort, - - wheezes audible in right lung base Cardiovascular: NL Sounds; No Murmurs; No JVD, RRR, No Edema Abdominal: NL Sounds; No Tenderness; No Distention Extremities: No Clubbing, Cyanosis, - - Trace edema to bilateral upper extremeties Skin: No Rash or Ulcers Neurological: Alert and Oriented x 3, NL Muscle Strength and Tone Lines/Tubes/Other Access: Clean, Dry and Intact Peripheral IV Nutrition: Taking PO's Result Diagrams: 07/31/18 06:01 07/31/18 06:01 Additional Lab and Data: Lab Results 07/28/18 Range/Units 15:41 WBC 16.2 H (3.5-10.8) 10^3/ul RBC 4.63 (4.00-5.40) 10^6/ul Hgb 15.0 (14.0-18.0) g/dl Hct 44 (42-52) % MCV 95 H (80-94) fL MCH 33 H (27-31) pg MCHC 34 (31-36) g/dl RDW 14 (10.5-15) % Plt Count 176 (150-450) 10^3/ul MPV 7.9 (7.4-10.4) fL Neut % (Auto) 86.4 % Lymph % (Auto) 4.8 % [place] % (Auto) 8.3 % Eos % (Auto) 0 % Baso % (Auto) 0.5 % Absolute Neuts (auto) 14.0 H (1.5-7.7) 10^3/ul Absolute Lymphs (auto) 0.8 L (1.0-4.8) 10^3/ul Absolute Monos (auto) 1.3 H (0-0.8) 10^3/ul Absolute Eos (auto) 0 (0-0.6) 10^3/ul Absolute Basos (auto) 0.1 (0-0.2) 10^3/ul Absolute Nucleated RBC 0 10^3/ul Nucleated RBC % 0 Microbiology and Other Data: Microbiology 07/28/18 22:22 Legionella Urinary Antigen - Final Urine Negative Legionella Antigen Streptococcus pneumoniae Ag Screen - Final Negative S. pneumo Antigen 07/28/18 22:28 Influenza Types A,B Antigen - Final Nasopharyngeal Specimen received for Influenza A/B Molecular testing Assess/Plan/Problems-Billing Assessment: Mr Taylor is a 72 year old male with a PMH COPD (on 2L O2 at night only), MYRON, DM, HTN, HLD whoe presented with increasing O2 requirements and SOB , non-productive cough and subjective fevers. Febrile in ED with infiltrate on CXR, Po2 50, admitted for CAP and COPD exacerbation. On azithro, ceftriaxone, solumedrol, duonebs. - Patient Problems (1) PNA (pneumonia) Current Visit: No Status: Acute Priority: High Code(s): J18.9 - PNEUMONIA , UNSPECIFIED ORGANISM SNOMED Code(s): 145719615 Comment: - Pt's shortness of breath continues to improve. Cough now productive with mucinex. - Satting well on supplimental O2. Plan to titrate off today while at rest, and try ambulating with the oxygen. - Continue treatment with supportive O2, IV ceftriaxone and azithro, duonebs, steroids and pulmonary toileting. - Urine strep and legionella negative. Flu negative. (2) COPD exacerbation Current Visit: No Status: Acute Priority: High Code(s): J44.1 - CHRONIC OBSTRUCTIVE PULMONARY DISEASE W (ACUTE) EXACERBATION SNOMED Code(s): 828744789185309 Comment: - Shortness of breath improving. Plan to titrate off O2 at rest today and ambulate with O2. Can evaluate tomorrow if will need O2 with ambulation at home. Some mild wheezing on exam today, so will continue steroids , however switch to PO tomorrow. - Continue dulera, scheduled duonebs, prn albuterol (3) Acute respiratory failure with hypoxia Current Visit: Yes Status: Acute Code(s): J96.01 - ACUTE RESPIRATORY FAILURE WITH HYPOXIA SNOMED Code(s): 77501259 Comment: - Secondary to CAP and COPD exacerbation. PaO2 on admission was 50 - SOB improving and satting well. Continue to titrate down O2 (4) Sepsis Current Visit: No Status: Acute Priority: High Comment: - Secondary to pneumonia - Resolving with ceftraiaxone and azithro. BP stable. No additional fevers, tachycardia has resolved. Leukocytosis resolved. - Blood cultures with no growth to date. Urine culture with moderate staph epi, likely contamination and pt is asymptomatic. Pt is on ceftriaxone for his PNA anyway. (5) BPH (benign prostatic hyperplasia) Current Visit: No Status: Chronic Priority: High Code(s): N40.0 - BENIGN PROSTATIC HYPERPLASIA WITHOUT LOWER URINRY TRACT SYMP SNOMED Code(s): 926863267 Comment: - Continue tamsulosin (6) HTN (hypertension) Current Visit: No Status: Chronic Priority: High Code(s): I10 - ESSENTIAL (PRIMARY) HYPERTENSION SNOMED Code(s): 00242108 Comment: - Continue to hold HCTZ as pt has been normotensive (7) Diabetes Current Visit: Yes Status: Acute Code(s): E11.9 - TYPE 2 DIABETES MELLITUS WITHOUT COMPLICATIONS SNOMED Code(s): 44011634 Comment: - Continue glargine and sliding scale (8) Asymptomatic bacteriuria Current Visit: Yes Status: Acute Code(s): R82.71 - BACTERIURIA SNOMED Code (s): 692619495 Comment: - Patient without urinary symptoms, however pt is already on antibiotic therapy with ceftriaxone for his PNA (9) Anemia Current Visit: Yes Status: Acute Code(s): D64.9 - ANEMIA, UNSPECIFIED SNOMED Code(s): 706671912 Comment: - Macrocytoc hyperchromic - B12 and folate ordered for AM - Pt does have ETOH history, so that could be a possible cause (10) DVT prophylaxis Current Visit: No Status: Acute Priority: High Code(s): TZR4154 - SNOMED Code(s): 468060303 Comment: - SQ heparin (11) Full code status Current Visit: No Status: Acute Priority: High Code(s): Z78.9 - OTHER SPECIFIED HEALTH STATUS SNOMED Code(s): 727764269 Status and Disposition: Inpatient. Likely D/C tomorrow.
[2018-07-31] MEDS: Tamsulosin CAP* 0.4 MG PO SCH (17:12)
[2018-07-31] MEDS: cefTRIAXone(*) 1 GM in NS 0.9% 50 ML* 50 ML IVPB SCH (17:12)
[2018-07-31] MEDS: Azithromycin IV(*) 500 MG in NS 0.9% 250 ML* 250 ML IVPB SCH (17:46)
[2018-07-31] MEDS: CMCS:Simvastatin TAB(NF) 10 MG TAB PO SCH (21:09)
[2018-08-01] MEDS: Albuterol/Ipratropium NEB.SOL* Albuterol 2.5 MG/Ipratropium 0.5 MG 3 ML INH SCH ×4 (01:07→19:57)
[2018-08-01] MEDS: Heparin VIAL(*) 5000 UNITS/ML VIAL (FIVE THOUSAND) SUBCUT SCH ×3 (05:21→21:20)
[2018-08-01 06:17] LABS: ABS Basophils 0 10^3/ul (0-0.2); ABS Eosinophils 0 10^3/ul (0-0.6); ABS Lymphocytes 0.8 10^3/ul (1.0-4.8); ABS Monocytes 0.5 10^3/ul (0-0.8); ABS Neutrophils 7.7 10^3/ul (1.5-7.7); ABS Nucleated RBC 0 10^3/ul; Eosinophil % 0 %; Hematocrit 38 % (42-52); Hemoglobin 13.2 g/dl (14.0-18.0); Lymphocyte % 8.8 %; Mean Corpuscular HGB Conc 34 g/dl (31-36); Mean Corpuscular Hemoglobin 33 pg (27-31); Mean Corpuscular Volume 97 fL (80-94); Nucleated Red Blood Cells % 0.2; Platelet Count 196 10^3/ul (150-450); Red Blood Count 3.95 10^6/ul (4.00-5.40); Red Cell Distribution Width 14 % (10.5-15)
[2018-08-01 06:33] LABS: EGFR Non-African American 81.3 (>60)
[2018-08-01] MEDS: Mometasone/Formoter 200/5 MDI INH SCH ×2 (08:45→20:00)
[2018-08-01] MEDS: guaiFENesin ER TAB 600 MG PO SCH ×2 (08:49→21:19)
[2018-08-01] MEDS: Multivitamins/Minerals TAB PO SCH (08:49)
[2018-08-01] MEDS: Insulin LISPRO* 1 UNITS UNIT SUBCUT SCH ×3 (08:50→17:25)
[2018-08-01] MEDS: Thiamine TAB* 100 MG TAB PO SCH (08:50)
[2018-08-01] MEDS: Insulin GLARGINE(*) 1 UNITS UNIT SUBCUT SCH (08:50)
[2018-08-01] MEDS: Folic Acid TAB* 1 MG PO SCH (08:50)
[2018-08-01] MEDS ORDERED: predniSONE TAB* 20 MG PO SCH (09:00)
--- NOTE | 2018-08-01 11:25 | PN ---
Subjective Date of Service: 08/01/18 Interval History: Pt denies shortness of breath at rest, but does get SOB with exertion, karena without and with O2 supplementation. Increased wheezing today. Pt continues to endorse occasional unproductive cough. Denies chest pain, headache, dizziness, abdominal pain, N/V. Reports regular appetite. Objective Active Medications: Acetaminophen (Tylenol Tab*) 650 mg PO Q4H PRN PRN Reason: FEVER/PAIN Last Admin: 07/28/18 20:26 Dose: 650 mg Albuterol (Ventolin 2.5 Mg/3 Ml Neb.Tory*) 2.5 mg INH Q4H PRN PRN Reason: SOB/WHEEZING Albuterol/Ipratropium (Duoneb (Albuterol 2.5 Mg/Ipratropium 0.5 Mg)) 1 neb INH [id number] AWAKE [facility] Last Admin: 08/01/18 08:45 Dose: 1 neb Dextrose (D50w Syringe 50 Ml*) 12.5 gm IV PUSH .FOR FS < 60 - SS PRN PRN Reason: FS < 60 Folic Acid (Folvite Tab*) 1 mg PO DAILY [facility] Last Admin: 08/01/18 08:50 Dose: 1 mg Guaifenesin (Mucinex*) 600 mg PO BID [facility] Last Admin: 08/01/18 08:49 Dose: 600 mg Heparin Sodium (Porcine) (Heparin Vial(*)) 5,000 units SUBCUT Q8HR [facility] Last Admin: 08/01/18 05:21 Dose: 5,000 units Ceftriaxone Sodium 1 gm/ (Sodium Chloride) 50 mls @ 200 mls/hr IVPB Q24H [facility] Last Admin: 07/31/18 17:12 Dose: 200 mls/hr Azithromycin 500 mg/ Sodium (Chloride) 250 mls @ 250 mls/hr IVPB Q24H [facility] Last Admin: 07/31/18 17:46 Dose: 250 mls/hr Insulin Glargine (Lantus(*)) 40 units SUBCUT DAILY [facility] Last Admin: 08/01/18 08:50 Dose: 40 units Insulin Human Lispro (Humalog*) 0 units SUBCUT AC [facility]; Protocol Last Admin: 08/01/18 08:50 Dose: 2 units Lorazepam (Ativan Tab(*)) 0 - 6 mg PO .PER WA PROTOCOL [facility]; Protocol Methylprednisolone Sodium Succinate (Solu-Medrol 40 Mg) 40 mg IV Q12H [facility] Mometasone Furoate/Formoterol Fumar (Dulera 200/5 Mdi*) 2 puff INH BID [facility] Last Admin: 08/01/18 08:45 Dose: 2 puff Multivitamins/Minerals (Theragran/Minerals Tab*) 1 tab PO DAILY [facility] Last Admin: 08/01/18 08:49 Dose: 1 tab Simvastatin (Zocor(Nf)) 10 mg PO BEDTIME [facility] Last Admin: 07/31/18 21:09 Dose: 10 mg Tamsulosin HCl (Flomax Cap*) 0.4 mg PO QPM [facility] Last Admin: 07/31/18 17:12 Dose: 0.4 mg Thiamine HCl (Vitamin B-1 Tab*) 100 mg PO DAILY [facility] Last Admin: 08/01/18 08:50 Dose: 100 mg Vital Signs - 8 hr 08/01/18 08/01/18 08/01/18 07:18 08:00 08:43 Temperature 97.3 F Pulse Rate 68 68 Respiratory 20 18 18 Rate Blood Pressure 140/70 (mmHg) O2 Sat by Pulse 93 93 Oximetry Oxygen Devices in Use Now: None Eyes: No Scleral Icterus, PERRLA Ears/Nose/Mouth/Throat: NL Teeth, Lips, Gums, Mucous Membranes Moist Neck: NL Appearance and Movements; NL JVP, Trachea Midline Respiratory: - - Wheezes auscultated bilaterally Cardiovascular: NL Sounds; No Murmurs; No JVD, - - Trace upper extremity edema Abdominal: NL Sounds; No Tenderness; No Distention Extremities: No Edema, No Clubbing, Cyanosis Skin: No Rash or Ulcers Neurological: Alert and Oriented x 3 Lines/Tubes/Other Access: Clean, Dry and Intact Peripheral IV Nutrition: Taking PO's Result Diagrams: 08/01/18 05:50 08/01/18 05:50 Additional Lab and Data: Lab Results 07/28/18 Range/Units 15:41 WBC 16.2 H (3.5-10.8) 10^3/ul RBC 4.63 (4.00-5.40) 10^6/ul Hgb 15.0 (14.0-18.0) g/dl Hct 44 (42-52) % MCV 95 H (80-94) fL MCH 33 H (27-31) pg MCHC 34 (31-36) g/dl RDW 14 (10.5-15) % Plt Count 176 (150-450) 10^3/ul MPV 7.9 (7.4-10.4) fL Neut % (Auto) 86.4 % Lymph % (Auto) 4.8 % [place] % (Auto) 8.3 % Eos % (Auto) 0 % Baso % (Auto) 0.5 % Absolute Neuts (auto) 14.0 H (1.5-7.7) 10^3/ul Absolute Lymphs (auto) 0.8 L (1.0-4.8) 10^3/ul Absolute Monos (auto) 1.3 H (0-0.8) 10^3/ul Absolute Eos (auto) 0 (0-0.6) 10^3/ul Absolute Basos (auto) 0.1 (0-0.2) 10^3/ul Absolute Nucleated RBC 0 10^3/ul Nucleated RBC % 0 Microbiology and Other Data: Microbiology 07/28/18 22:22 Legionella Urinary Antigen - Final Urine Negative Legionella Antigen Streptococcus pneumoniae Ag Screen - Final Negative S. pneumo Antigen 07/28/18 22:28 Influenza Types A,B Antigen - Final Nasopharyngeal Specimen received for Influenza A/B Molecular testing Assess/Plan/Problems-Billing Assessment: Mr Taylor is a 72 year old male with a PMH COPD (on 2L O2 at night only), MYRON, DM, HTN, HLD whoe presented with increasing O2 requirements and SOB , non-productive cough and subjective fevers. Febrile in ED with infiltrate on CXR, Po2 50, admitted for CAP and COPD exacerbation. On azithro, ceftriaxone, solumedrol, duonebs. - Patient Problems (1) PNA (pneumonia) Current Visit: No Status: Acute Priority: High Code(s): J18.9 - PNEUMONIA , UNSPECIFIED ORGANISM SNOMED Code(s): 801200823 Comment: - Pt's shortness of breath continues to improve, however increased wheezing on exam today after switching from IV to PO steroids. Will get CXR to further evaluate. - Still with O2 requirement with exhertion, but satting >90% at rest on room air - Continue treatment with supportive O2, duonebs, steroids and pulmonary toileting. Completed course of 500mg azithromycin. Continue IV ceftriaxone - Urine strep and legionella negative. Flu negative. (2) COPD exacerbation Current Visit: No Status: Acute Priority: High Code(s): J44.1 - CHRONIC OBSTRUCTIVE PULMONARY DISEASE W (ACUTE) EXACERBATION SNOMED Code(s): 537285878354394 Comment: - Shortness of breath improved since admission, however increased wheezing today after switching from PO steroids to IV. Have restarted IV steroids for tonight. Received 40mg PO this am- consider 60mg PO followed by slow taper, as this seems to have worked on previous admissions for CAP/COPD exacerbation. Also will obtain CXR to evaluate further. - Continue dulera, scheduled duonebs, prn albuterol (3) Acute respiratory failure with hypoxia Current Visit: Yes Status: Acute Code(s): J96.01 - ACUTE RESPIRATORY FAILURE WITH HYPOXIA SNOMED Code(s): 58124888 Comment: - Secondary to CAP and COPD exacerbation. PaO2 on admission was 50 - SOB improving and satting well. Continue to titrate down O2 as tolerated (4) Sepsis Current Visit: No Status: Acute Priority: High Comment: - Resolved. Secondary to CAP (5) BPH (benign prostatic hyperplasia) Current Visit: No Status: Chronic Priority: High Code(s): N40.0 - BENIGN PROSTATIC HYPERPLASIA WITHOUT LOWER URINRY TRACT SYMP SNOMED Code(s): 025748137 Comment: - Continue tamsulosin (6) HTN (hypertension) Current Visit: No Status: Chronic Priority: High Code(s): I10 - ESSENTIAL (PRIMARY) HYPERTENSION SNOMED Code(s): 54435430 Comment: - Continue to hold HCTZ as pt has been normotensive (7) Diabetes Current Visit: Yes Status: Acute Code(s): E11.9 - TYPE 2 DIABETES MELLITUS WITHOUT COMPLICATIONS SNOMED Code(s): 83305167 Comment: - Continue glargine and sliding scale (8) Asymptomatic bacteriuria Current Visit: Yes Status: Acute Code(s): R82.71 - BACTERIURIA SNOMED Code (s): 842081260 Comment: - Urine culture with no growth (9) Anemia Current Visit: Yes Status: Acute Code(s): D64.9 - ANEMIA, UNSPECIFIED SNOMED Code(s): 611314292 Comment: - Macrocytoc hyperchromic - B12 and folate WNL - Pt does have ETOH history, so that could be a possible cause (10) DVT prophylaxis Current Visit: No Status: Acute Priority: High Code(s): ITT8024 - SNOMED Code(s): 231014534 Comment: - SQ heparin (11) Full code status Current Visit: No Status: Acute Priority: High Code(s): Z78.9 - OTHER SPECIFIED HEALTH STATUS SNOMED Code(s): 061222602 Status and Disposition: Inpatient.
[2018-08-01] MEDS: Tamsulosin CAP* 0.4 MG PO SCH (17:25)
[2018-08-01] MEDS: cefTRIAXone(*) 1 GM in NS 0.9% 50 ML* 50 ML IVPB SCH (17:25)
[2018-08-01] MEDS: methylPREDNISolone SOD 40 MG* 1 ML VIAL IV SCH (21:20)
[2018-08-01] MEDS: CMCS:Simvastatin TAB(NF) 10 MG TAB PO SCH (21:20)
[2018-08-02] MEDS: Albuterol/Ipratropium NEB.SOL* Albuterol 2.5 MG/Ipratropium 0.5 MG 3 ML INH SCH ×2 (01:10→07:35)
[2018-08-02] MEDS: Heparin VIAL(*) 5000 UNITS/ML VIAL (FIVE THOUSAND) SUBCUT SCH ×2 (05:44→15:00)
[2018-08-02] MEDS ORDERED: Albuterol/Ipratropium NEB.SOL* Albuterol 2.5 MG/Ipratropium 0.5 MG 3 ML INH PRN (07:33)
[2018-08-02] MEDS: Mometasone/Formoter 200/5 MDI INH SCH (07:36)
[2018-08-02] MEDS: Insulin GLARGINE(*) 1 UNITS UNIT SUBCUT SCH (08:17)
[2018-08-02] MEDS: methylPREDNISolone SOD 40 MG* 1 ML VIAL IV SCH (08:17)
[2018-08-02] MEDS: guaiFENesin ER TAB 600 MG PO SCH (08:17)
[2018-08-02] MEDS: Insulin LISPRO* 1 UNITS UNIT SUBCUT SCH ×2 (08:17→12:00)
[2018-08-02] MEDS: Thiamine TAB* 100 MG TAB PO SCH (08:17)
[2018-08-02] MEDS: Folic Acid TAB* 1 MG PO SCH (08:17)
[2018-08-02] MEDS: Multivitamins/Minerals TAB PO SCH (08:17)
[2018-08-02 11:37] VITALS: BP 139/71
--- NOTE | 2018-08-03 00:05 | DS ---
CC: Dr. Marcelo Sampson; AYSE Sun; Dr. Tanesha Villalta; Dr. Darling Swenson; Dr. Beatrice Weaver; Lluvia Stevens NP DISCHARGE SUMMARY: DATE OF ADMISSION: DATE OF DISCHARGE: 08/02/18. DISCHARGE DIAGNOSES: Are as follows: 1. Community acquired pneumonia. 2. Chronic obstructive pulmonary disease exacerbation likely secondary to above. 3. Acute on chronic respiratory failure resolved, due to above. 4. Sepsis due to community acquired pneumonia, resolved. DISCHARGE MEDICATIONS: Are as follows: 1. Insulin glargine 40 units subcu q. daily. 2. Simvastatin 10 mg p.o. q.h.s. 3. Tamsulosin 0.4 mg p.o. q.p.m. 4. Ventolin nebulization 2.5 mg inhalation q.i.d. p.r.n. 5. Albuterol two puffs inhalation q. 4 p.r.n. 6. Doxycycline 100 mg p.o. b.i.d. for seven more days. 7. Breo Ellipta MDI 200/25 mcg one puff inhalation q. daily. 8. Robitussin DM 10 mL p.o. q.6 p.r.n. 9. HCTZ 25 mg p.o. q.a.m. 10. Atrovent nebulization 0.5 mg inhalation t.i.d. p.r.n. 11. Floranex two tabs p.o. q. daily for 10 days. 12. Multivitamins one tab p.o. q. daily. 13. Prednisone rapid taper. 14. Incruse Ellipta 62.5 mcg inhalation q. daily. HISTORY OF PRESENT ILLNESS/HOSPITAL COURSE: The patient is a 72-year-old gentleman with a history of diabetes, COPD, and hypertension, who has been having progressive worsening shortness of breath for a few days prior to his admission on 07/28/18. He mentioned that he has had associated rhinorrhea and intermittent cough at times and noticed that when he takes his oxygen off, which he only wears at night, his saturation drops precipitously and persistence of him feeling unwell and the above signs and symptoms as well as his partner noticing that he was very warm to touch led to his consultation in the ED and subsequent admission where he was found to have community acquired pneumonia with mild sepsis. He was placed on Rocephin and azithromycin as well as IV fluids and Solu-Medrol and has defervesced quite well and prior to his discharge, he had an ambulatory saturation test which was done where he dropped his saturation in the 87% to 86% on room air while ambulating but does well at rest. At 2 liters he maintained his saturation above 90% and will be discharged on 2 liters of oxygen. Cultures have been negative for 4 days and the patient has been ruled out for legionella and Strep pneumoniae given the urine antigen tests were negative. The patient had been advised to follow up and call his PCP within three days post- DC. He was advised that if his symptoms resume or develop new ones or feel unwell for any reason, to call his PCP first and if his PCP cannot entertain him due to scheduling issues alone, to call [facility] if the issue is considered nonemergent. He was advised to call my office regarding any questions, concerns, or further clarifications regarding his discharge plans and/or prescriptions and to take his medications as prescribed. REVIEW OF SYSTEMS: The patient denies any current headaches, dizziness, fevers , chills, nausea, vomiting, chest pain, shortness of breath, increased cough, and/or sputum production, abdominal pain, diarrhea, constipation, pain, and/or increased frequency on urination, myalgias, arthralgias, throat pain, or new skin lesions. The rest of the 14-point review of systems are otherwise unremarkable. Of note, he did have 8 beats run of V-tach that was found to be asymptomatic this morning. PHYSICAL EXAMINATION: Shows the most recent vital signs of records with blood pressure of 139/71, 97.6 degrees Fahrenheit, 65 beats per minute heart rate, 20 per minute respiratory rate, saturating at 95% on room air. General Appearance : The patient is awake, alert, and oriented x3; not in acute distress. HEENT: Normocephalic and atraumatic. PERRLA. Extraocular muscles intact. Negative for icterus, moist oral mucosa, negative throat erythema. Neck is soft and supple with no cervical lymphadenopathy, no JVD. Heart: S1 and S2 within normal limits. Regular rate and rhythm. No murmurs, rubs, or gallops. Chest: Clear to auscultation bilaterally. Good air entry. No wheezes, rales, or rhonchi. Abdomen is soft, nondistended, nontender. Normoactive bowel sounds x4 q. Extremities: No cyanosis, clubbing, or edema. Psychiatric: No active psychosis, depression, suicidal or homicidal ideation. Skin is warm to touch. TIME SPENT: The total time spent evaluating the patient, reviewing pertinent data, and appropriate documentation is 50 minutes. [id number]/CPS #: [id number] MTDD
== END 2018-08-02 15:35 | disposition home or self-care (01) | DRG 871 ==
LOC: ED 15:19 → MEDTELE 17:51
PROVIDERS: ADMIT Internal Medicine; ATTEND Student in an Organized Health Care Education/Training Program
PROC: 5A09457 Assistance with Respiratory Ventilation, 24-96 Consecutive Hours, Continuous Positive Airway Pressure (ICD-10-PCS; principal; 2018-07-28)
DX: A41.9 Sepsis, unspecified organism (principal); J18.9 Pneumonia, unspecified organism; J96.21 Acute and chronic respiratory failure with hypoxia; J44.1 Chronic obstructive pulmonary disease with (acute) exacerbation; J44.0 Chronic obstructive pulmonary disease with (acute) lower respiratory infection; I47.2 Ventricular tachycardia; E66.01 Morbid (severe) obesity due to excess calories; E11.9 Type 2 diabetes mellitus without complications; I10 Essential (primary) hypertension; E78.5 Hyperlipidemia, unspecified; N40.0 Benign prostatic hyperplasia without lower urinary tract symptoms; F17.210 Nicotine dependence, cigarettes, uncomplicated; G47.33 Obstructive sleep apnea (adult) (pediatric); Z68.35 Body mass index [BMI] 35.0-35.9, adult; R82.71 Bacteriuria; Z79.4 Long term (current) use of insulin; Z79.899 Other long term (current) drug therapy; Z88.1 Allergy status to other antibiotic agents; Z88.5 Allergy status to narcotic agent; Z80.0 Family history of malignant neoplasm of digestive organs; I45.10 Unspecified right bundle-branch block; Z99.81 Dependence on supplemental oxygen; D64.9 Anemia, unspecified
CPT/HCPCS: 36415; 71046; 80048; 80053; 81003; 81015; 82607; 82746; 82803; 83036; 83605; 83880; 84484; 85025; 85610; 85730; 87040; 87086; 87899; 93005; 94640; 94660; 99284; 99406; A9270-GY; J0456; J0696; J1644; J2920; J2930; J7512

== ENCOUNTER 2018-11-27 19:17 | Inpatient (IN) | payer MEDICARE ==
--- OUTSIDE RECORDS SUMMARY | 2018-11-27 19:23 | XMS REPORT | Continuity of Care Document ---
:1945 External Reference #:[id number] Author Name YarelyDona paz Care Team Providers Name Role Phone Lluvia Stevens NP Care Team Information [employer] Maker Unavailable Lluvia Stevens NP Primary Care Physician Unavailable Payers Date Identification Numbers Payment Provider Subscriber Policy Number: [id number] [facility] Tod[employer] Options Brandan Taylor PayID: [id number] [address] [address] Attn: [place] [address] Advance Directives Description No Information Available Problems Date Description Provider Status Onset: 03/28/2017 Chronic obstructive lung disease Katelyn Mix MD Active Onset: 03/28/2017 Obstructive sleep apnea syndrome Katelyn Mix MD Active Onset: 03/28/2017 Obesity Katelyn Mix MD Active Onset: 07/28/2018 Sepsis, unspecified organism Logan Torrez N.P. Active Onset: 07/28/2018 Type 2 diabetes mellitus Logan Torrez N.P. Active Onset: 07/28/2018 Chronic obstructive pulmonary Logan Torrez N.P. Active disease with acute lower respiratory infection Onset: 07/28/2018 Pneumonia Logan Torrez N.P. Active Onset: 07/28/2018 Essential hypertension Logan Torrez N.Chato. Active Onset: 07/30/2018 Acute respiratory failure with Sera Gerard NP Active hypoxia Onset: 07/30/2018 Bacteriuria Sera Gerard NP Active Onset: 07/31/2018 Anemia Sera Gerard NP Active Onset: 08/02/2018 Long-term current use of insulin Bernardino Young MD Active Family History Date Family Member(s) Observation Comments Father due to unrelated () - 70 to cardiac disease Father Colon Cancer Father Diabetes Mother due to not related () to cardiac disease Mother Hypertension : (age 65 Mother due to Motor in MVA Years) Vehicle Accident Siblings 6 Siblings no known cardiac issues Social History Type Date Description Comments Sex Unknown Marital Status Significant Other Lives With Girlfriend Occupation Retired Tobacco Use Start: Unknown End: Former Cigarette 50 years. Currently Unknown Smoker 1 Pack Daily using Nicorette Cigarette Use Quit - Age 72 Smoking 2 per day 11/25/18 ETOH Use Drinks 2 Alcoholic Beverages Per Day Recreational Drug Use Denies Drug Use Tobacco Use Start: Unknown Patient is a current 2 per day smoker, smokes every day Smoking Status Reviewed: 11/25/18 Patient is a current 2 per day smoker, smokes every day Exercise Type/Frequency Exercises rarely More since quit smoking 2 weeks ago 10/03/17 Allergies, Adverse Reactions, Alerts Date Description Reaction Status Severity Comments 04/24/2017 Hydrocodone Respiratory Distress Active 03/21/2018 Amoxicillin Active 11/25/2018 Antibiotic Dizziness Active At [facility] Does not know which abx 06/06/2015 NKDA Inactive Medications Medication Date Status Form Strength Qnty SIG Indications Ordering Provider Eliceo Gomez 04/24 Active Aerosol 100-25mcg 180un inhale 1 J44.9 Katelyn /2016 / its puff every Maria Del Rosario, MD Frederick HFA Active Aerosol 108(90Bas inhale [...] /0000 nh puff by mouth every day Basaglar Kwikpen Active Solution 100Unit/M Inject 35 Unknown /0000 Pen-Injec L Subcutaneou t sly Every Day Klor-Con 10 Active Tablets 10Meq Take 1 Unknown /0000 ER Tablet By Mouth Every Day Aspirin 81 00 Active Tablets 81mg 1 by mouth Unknown /0000 DR every day Prednisone 00 Active Tablets 10mg Take 4 Tabs Unknown /0000 For 1 Day Then 3 Tabs For 3 Days Then 2 Tabs For 3 Days Then 1 Tab For 3 Days (Currently 1 per day 11/25/18) Aspirin 00 Hx Tablets 325mg 1 by mouth Unknown /0000 DR every day - 03/27 Finasteride Hx Tablets 5mg 1 by mouth Unknown /0000 every day - 03/27 Flovent HFA Hx Aerosol 220mcg/Ac inhale one Unknown /0000 t puff by - mouth twice 04/02 a /2016 Foradil Aerolizer Hx Capsules 12mcg 1 cap Unknown /0000 inhalation - every day 03/27 inhale times daily Spiriva Handihaler Hx Capsules 18mcg place 1 Unknown /0000 capsule - into 03/27 inhaler inhale daily Serevent Diskus Hx Aerosol 50mcg/Dos 1 puff Unknown /0000 e twice a day - 04/11 Potassium Citrate Hx Tablets 10Meq 1 by mouth Unknown ER /0000 ER (1080 mg) two times a - day 10/03 Prednisone Hx Tablets 10mg Take as Unknown /0000 Directed On - Sheet 18 11/09 day Immunizations CPT Code Status Date Vaccine Lot # [id number] Given 06/11/2016 Influenza Virus 3Yrs & Over Vital Signs Date Vital Result Comment 11/25/2018 1:36pm Height 72 inches 6'0" Weight 267.00 lb Per pt Heart Rate 82 /min BP Systolic Sitting 110 mmHg Lue large cuff BP Diastolic Sitting 64 mmHg Lue large cuff Respiratory Rate 18 /min O2 % BldC Oximetry 95 % On Ra BMI (Body Mass Index) 36.2 kg/m2 11/10/2018 10:45am Height 72 inches 6'0" Weight 273.00 lb Heart Rate 82 /min BP Systolic Sitting 142 mmHg BP Diastolic Sitting 88 mmHg Respiratory Rate 20 /min O2 % BldC Oximetry 94 % BMI (Body Mass Index) 37.0 kg/m2 03/21/2018 9:38am Height 72 inches 6'0" Weight 248.50 lb Heart Rate 80 /min BP Systolic Sitting 132 mmHg Rue large cuff BP Diastolic Sitting 80 mmHg Rue large cuff Respiratory Rate 19 /min O2 % BldC Oximetry 97 % BMI (Body Mass Index) 33.7 kg/m2 10/03/2017 1:26pm Height 72 inches 6'0" Weight 265.00 lb per pt Heart Rate 82 /min BP Systolic Sitting 128 mmHg Rue large cuff BP Diastolic Sitting 74 mmHg Rue large cuff Respiratory Rate 18 /min O2 % BldC Oximetry 94 % On 2L O2 BMI (Body Mass Index) 35.9 kg/m2 04/24/2017 3:05pm Height 71 inches 5'11" Weight 278.00 lb w/ shoes Heart Rate 78 /min reg BP Systolic Sitting 140 mmHg Rue, lg cuff BP Diastolic Sitting 74 mmHg Rue, lg cuff Respiratory Rate 16 /min O2 % BldC Oximetry 93 % on Ra BMI (Body Mass Index) 38.8 kg/m2 03/28/2017 11:35am Height 71 inches 5'11" Weight 276.00 lb Heart Rate 84 /min BP Systolic Sitting 136 mmHg BP Diastolic Sitting 88 mmHg Respiratory Rate 20 /min O2 % BldC Oximetry 96 % O2 via NC @ 2LPM BMI (Body Mass Index) 38.5 kg/m2 Neck Circumference in inches 23 06/07/2015 2:15pm Height 71 inches 5'11" Weight 284.00 lb w/shoes Heart Rate 86 /min BP Systolic Sitting 172 mmHg LA lg cuff BP Diastolic Sitting 102 mmHg LA lg cuff BP Systolic Standing 152 mmHg la repeat sitting BP Diastolic Standing 87 mmHg la repeat sitting BMI (Body Mass Index) 39.6 kg/m2 Ejection Fraction 55-60 echo 11/27/12 Results Description No Information Available Procedures Date Code Description Status 11/17/2018 01305 Treadmill Interp/Report Only Completed 11/17/2018 84414 Stress Test Supervsn W/Out I/R Completed 11/14/2018 04532 ECHO Transthorasic Realtime 2D W Doppler & Color Flow Hosp Completed 04/18/2017 65396 Diffusing Capacity Completed 04/18/2017 70064 Plethysmography Determination Lung Volumes & Per Airway Completed Resist 04/18/2017 77725 Pulmonary Function><Bronchodil Completed 06/10/2015 45391 ECHO Transthoracic, Real-Time 2D With Doppler And Color Completed Flow 06/10/2015 08033 Treadmill Interp/Report Only Completed 06/10/2015 68325 Stress Test Supervsn W/Out I/R Completed 06/07/2015 14790 EKG Tracing & Interpretation Completed 11/27/2012 89395 Color Flow Doppler/Interp & Reprt Completed 11/27/2012 49897 Pulse Wave/Continuous-Interp.RPT Completed 11/27/2012 73128 ECHO Transthorasic Realtime 2D W Doppler & Color Flow Hosp Completed 11/27/2012 93556 EKG, Interpretation Only Completed 09/19/2010 83879 Treadmill Interp/Report Only Completed 09/19/2010 20340 Stress Test Supervsn W/Out I/R Completed Encounters Type Date Location Provider Dx Diagnosis Office Visit 11/16/2018 [facility] Eugenia Segovia, A41.9 Sepsis, 8:50a Assoc,pc SAS ADMINISTRATOR unspecified Hospitalists organism J18.9 Pneumonia, unspecified organism J44.0 Chronic obstructive pulmon disease w acute lower resp infct E11.9 Type 2 diabetes mellitus without complications Office Visit 11/15/2018 8:50a [facility] A41.9 Sepsis, Assoc,sky Hernández M.D. unspecified Hospitalists organism J44.0 Chronic obstructive pulmon disease w acute lower resp infct J18.9 Pneumonia, unspecified organism I47.2 Ventricular tachycardia I10 Essential (primary) hypertension [facility]eps[facility], Assoc,sky Hernández M.D. unspecified Hospitalists organism J44.0 Chronic obstructive pulmon disease w acute lower resp infct J18.9 Pneumonia, unspecified organism E11.9 Type 2 diabetes mellitus without complications Office Visit 11/13/2018 8:49a [facility] A41.9 Sepsis, Assoc,sky Hernández M.D. unspecified Hospitalists organism J44.0 Chronic obstructive pulmon disease w acute lower resp infct J18.9 Pneumonia, unspecified organism E11.9 Type 2 diabetes mellitus without complications Office Visit 11/12/2018 8:48a [facility] A41.9 Sepsis, Assoc,sky Hernández M.D. unspecified Hospitalists organism J44.1 Chronic obstructive pulmonary disease w (acute) exacerbation E11.9 Type 2 diabetes mellitus without complications I10 Essential (primary) hypertension Office Visit 11/10/2018 11:00a [facility] J44.9 [facility] Maria Del Rosario obstructive [place] pulmonary disease, unspecified G47.33 Obstructive sleep apnea (adult) (pediatric) J98.4 Other disorders of lung E66.09 Other obesity due to excess calories [facility] 9:09a Assoc,ANGEL Rivera obstructive Hospitalists pulmonary disease w (acute) exacerbation E11.9 Type 2 diabetes mellitus without complications G47.33 Obstructive sleep apnea (adult) (pediatric) Office Visit 10/24/2018 [facility] Janay J44.1 Chronic 9:09a Assocsky PA obstructive Hospitalists pulmonary disease w (acute) exacerbation E87.2 Acidosis J81.1 Chronic pulmonary edema L03.032 Cellulitis of left toe E11.9 Type 2 diabetes mellitus without complications I10 Essential (primary) hypertension Office Visit 10/23/2018 9:09a [facility] Mackenzie J44.1 Chronic Assoc,sky Manning D.O. obstructive Hospitalists pulmonary disease w (acute) exacerbation E87.2 Acidosis E11.9 Type 2 diabetes mellitus without complications G47.33 Obstructive sleep apnea (adult) (pediatric) Office Visit 08/02/2018 [facility] Bernardino Barreto J18.9 Pneumonia, 8:42a Assocsky MD unspecified Hospitalists organism J44.0 Chronic obstructive pulmon disease w acute lower resp infct J96.01 Acute respiratory failure with hypoxia A41.9 Sepsis, unspecified organism Z79.4 USP (current) use of insulin Office Visit 08/01/2018 [facility] Sera J18.9 Pneumonia, 8:42a Assocsky NP unspecified Hospitalists organism J44.0 Chronic obstructive pulmon disease w acute lower resp infct J96.01 Acute respiratory failure with hypoxia A41.9 Sepsis, unspecified organism E11.9 Type 2 diabetes mellitus without complications R82.71 Bacteriuria I10 Essential (primary) hypertension D64.9 Anemia, unspecified Office Visit 07/31/2018 [facility] Sera Sterling18.9 Pneumonia, 8:41a Assoc,sky Gerard, SAS ADMINISTRATOR unspecified Hospitalists organism J44.0 Chronic obstructive pulmon disease w acute lower resp infct J96.01 Acute respiratory failure with hypoxia A41.9 Sepsis, unspecified organism E11.9 Type 2 diabetes mellitus without complications R82.71 Bacteriuria I10 Essential (primary) hypertension D64.9 Anemia, unspecified Office Visit 07/30/2018 [facility] Sera J18.9 Pneumonia, 8:41a Assoc,sky Gerard, SAS ADMINISTRATOR unspecified Hospitalists organism J44.0 Chronic obstructive pulmon disease w acute lower resp infct J96.01 Acute respiratory failure with hypoxia A41.9 Sepsis, unspecified organism E11.9 Type 2 diabetes mellitus without complications R82.71 Bacteriuria Office Visit 07/29/2018 [facility] Sera A41.9 Sepsis, 8:40a Assoc,sky Gerard, SAS ADMINISTRATOR unspecified Hospitalists organism J44.0 Chronic obstructive pulmon disease w acute lower resp infct E11.9 Type 2 diabetes mellitus without complications J18.9 Pneumonia, unspecified organism I10 Essential (primary) hypertension Office Visit 07/28/2018 [facility] Logan A41.9 Sepsis, 8:40a Assoc,sky Torrez, N.P. unspecified Hospitalists organism E11.9 Type 2 diabetes mellitus without complications J44.0 Chronic obstructive pulmon disease w acute lower resp infct J18.9 Pneumonia, unspecified organism I10 Essential (primary) hypertension G47.33 Obstructive sleep apnea (adult) (pediatric) Office Visit 03/21/2018 10:30a [facility] J44.9 [facility] Maria Del Rosario obstructive [place] pulmonary disease, unspecified G47.33 Obstructive sleep apnea (adult) (pediatric) E66.09 Other obesity due to excess calories Office Visit 11/06/2017 [facility] E11.01 Type 2 diabetes 9:49a Assoc,sky Gonzalez, DO mellitus with Hospitalists hyperosmolarity with coma E11.65 Type 2 diabetes mellitus with hyperglycemia J44.9 Chronic obstructive pulmonary disease, unspecified I10 Essential (primary) hypertension Office Visit 11/05/2017 [facility] E11.01 Type 2 diabetes 9:48a Assoc,sky Gonzalez, DO mellitus with Hospitalists hyperosmolarity with coma E11.65 Type 2 diabetes mellitus with hyperglycemia J44.9 Chronic obstructive pulmonary disease, unspecified Office Visit 11/04/2017 [facility] Jem Rogers, E11.01 Type 2 diabetes 9:47a Asssky sandoval MD mellitus with Hospitalists hyperosmolarity with coma E11.65 Type 2 diabetes mellitus with hyperglycemia J44.9 Chronic obstructive pulmonary disease, unspecified I10 Essential (primary) hypertension Office Visit 11/03/2017 [facility] E11.01 Type 2 diabetes 9:46a Assocsky DO mellitus with Hospitalists hyperosmolarity with coma E11.65 Type 2 diabetes mellitus with hyperglycemia I10 Essential (primary) hypertension J44.9 Chronic obstructive pulmonary disease, unspecified Office Visit 11/02/2017 [facility] E11.01 Type 2 diabetes 9:45a Asssky sandoval, mellitus with Hospitalists hyperosmolarity with coma E11.65 Type 2 diabetes mellitus with hyperglycemia I10 Essential (primary) hypertension J44.9 Chronic obstructive pulmonary disease, unspecified Office Visit 11/01/2017 [facility] Stefany E11.01 Type 2 diabetes 9:44a Asslori,sky Buchanan M.D. mellitus with Hospitalists hyperosmolarity with coma E11.65 Type 2 diabetes mellitus with hyperglycemia I10 Essential (primary) hypertension J44.9 Chronic obstructive pulmonary disease, unspecified Office Visit 10/31/2017 [facility] Noah E11.01 Type 2 diabetes 9:43a Asssky sandoval PA mellitus with Hospitalists hyperosmolarity with coma E11.65 Type 2 diabetes mellitus with hyperglycemia I10 Essential (primary) hypertension J44.9 Chronic obstructive pulmonary disease, unspecified Office Visit 10/03/2017 1:30p [facility] J44.9 [facility] Maria Del Rosario obstructive [place] pulmonary disease, unspecified G47.33 Obstructive sleep apnea (adult) (pediatric) R09.02 Hypoxemia E66.01 Morbid (severe) obesity due to excess calories Office Visit 09/29/2017 10:04a [facility] Jem Rogers, J44.1 Chronic Asssky sandoval MD obstructive Hospitalists pulmonary disease w (acute) exacerbation E11.9 Type 2 diabetes mellitus without complications F17.200 Nicotine dependence, unspecified, uncomplicated I10 Essential (primary) hypertension Office Visit 09/28/2017 10:03a [facility] Jem Rogers, J44.1 Chronic Assoc,pc obstructive Hospitalists pulmonary disease w (acute) exacerbation E11.9 Type 2 diabetes mellitus without complications R00.0 Tachycardia, unspecified I10 Essential (primary) hypertension Office Visit 09/27/2017 10:02a [facility] Jordin J44.1 Chronic Assoc,sky Dooley M.D. obstructive Hospitalists pulmonary disease w (acute) exacerbation E11.9 Type 2 diabetes mellitus without complications R00.0 Tachycardia, unspecified I10 Essential (primary) hypertension Office Visit 04/24/2017 3:15p [facility] J44.9 [facility] Maria Del Rosario obstructive [place] pulmonary disease, unspecified G47.33 Obstructive sleep apnea (adult) (pediatric) R09.02 Hypoxemia E66.09 Other obesity due to excess calories Z68.38 Body mass index (BMI) 38.0-38.9, adult F17.210 Nicotine dependence, cigarettes, uncomplicated Office Visit 03/28/2017 11:30a [facility] J44.9 [facility] Maria Del Rosario obstructive [place] pulmonary disease, unspecified G47.33 Obstructive sleep apnea (adult) (pediatric) E66.09 Other obesity due to excess calories Z68.38 Body mass index (BMI) 38.0-38.9, adult F17.210 Nicotine dependence, cigarettes, uncomplicated Office Visit 11/15/2016 1:48p [facility] Jacqueline Mendoza, J44.1 Chronic Assoc,pc N.P. obstructive Hospitalists pulmonary disease w (acute) exacerbation I10 Essential (primary) hypertension N40.0 Benign prostatic hyperplasia without lower urinry tract symp Office Visit 11/14/2016 [facility] J44.1 Chronic 1:48p Assoc,sky Patel NP obstructive Hospitalists pulmonary disease w (acute) exacerbation I10 Essential (primary) hypertension N40.0 Benign prostatic hyperplasia without lower urinry tract symp Office Visit 11/13/2016 [facility] J44.1 Chronic 1:48p Assoc,sky Patel NP obstructive Hospitalists pulmonary disease w (acute) exacerbation I10 Essential (primary) hypertension N40.0 Benign prostatic hyperplasia without lower urinry tract symp Office Visit 11/12/2016 [facility] J44.1 Chronic 1:47p Assoc,pc Jorge, BONNIE obstructive Hospitalists pulmonary disease w (acute) exacerbation I10 Essential (primary) hypertension N40.0 Benign prostatic hyperplasia without lower urinry tract symp Office Visit 11/11/2016 1:46p [facility] Jacqueline Mendoza, J44.1 Chronic Assoc,pc N.P. obstructive Hospitalists pulmonary disease w (acute) exacerbation I10 Essential (primary) hypertension N40.0 Benign prostatic hyperplasia without lower urinry tract symp Office Visit 06/07/2015 2:30p [facility] Jackson Swanson R55 Syncope and Rebecca Eduardo collapse I10 Essential (primary) hypertension E66.01 Morbid (severe) obesity due to excess calories E11.9 Type 2 diabetes mellitus without complications E78.0 Pure hypercholesterolemia R94.31 Abnormal electrocardiogram [ECG] [EKG] R07.9 Chest pain, unspecified Office Visit 11/27/2012 9:58a [facility] Mackenzie 780.2 Syncope & Assoc,pc Alice Manning Collapse Hospitalists 278.01 Obesity Morbid 780.53 Hypersomnia W/ Sleep Apnea Unspecified 250.90 Diabetes W/ Unspec Compl Type II Or Unspec Controlled Office Visit 11/26/2012 9:57a [facility] Stefany Buchanan, 780.2 Syncope & Assoc,sky Fernandez Collapse Hospitalists 278.01 Obesity Morbid 780.53 Hypersomnia W/ Sleep Apnea Unspecified 250.90 Diabetes W/ Unspec Compl Type II Or Unspec Controlled Office Visit 09/19/2010 10:00a [place] Jackson Swanson 402.10 Hypertensive Heart Cardiology Rebecca Eduardo Disease Benign W/O Heart Failure 272.0 Hypercholesterolemia Pure 278.01 Obesity Morbid 786.50 Pain Chest Unspec Plan of Treatment Future Appointment(s):01/27/2019 10:45 am - Katelyn Mix MD at [facility]12/11/2018 1:00 pm - Santos Watson DO FAC at [facility]11/25/2018 - Katelyn Mix MDJ44.9 Chronic obstructive pulmonary disease, unspecifiedNew Labs:Immunoglobulins Serum Quant, Ordered: 11/25/18Follow up:2 monthsRecommendations:You are being provided with a sample of Trelegy, a new inhaler. While using Trelegy please stop using Breo and Incruse. Let the office know if this works well for you and if you would like a prescription for Trelegy.F17.210 Nicotine dependence, cigarettes, gkfcgsihjqyrlC29.02 Hypoxemia
[2018-11-27] MEDS ORDERED: NS 0.9% 1000 ML** 1,000 ML IV ONE (19:26)
[2018-11-27] MEDS ORDERED: Magnesium Sulfate 2 GM IV* 2 GM/50 ML BAG IVPB ONE ×2 (19:26→21:35)
[2018-11-27] MEDS ORDERED: Amiodarone 360 MG IVPREMIX* 360 MG/200 ML BAG IV ONE (19:38)
[2018-11-27] MEDS ORDERED: Amiodarone 150 MG IVPREMIX* 150 MG/100 ML BAG IV ONE (19:38)
--- NOTE | 2018-11-27 19:42 | ED ---
Shortness of Breath - HPI Summary HPI Summary: This patient is a 73 year old male brought in by ambulance to [facility] with a chief complaint of dizziness and SOB since 1-2 hours ago. Patient states that he suddenly felt dizzy and felt like he was going to pass out while eating dinner. The pain is rated 0/10 in severity. Symptoms aggravated by nothing. Symptoms alleviated by nothing. Home O2 breathing treatment provided no relief. According to EMS, patient is 94% O2 saturation on nasal cannula. Patient additionally reports diaphoresis. Patient denies chest pain. He denies a hx of cardiac issues before. He does, however, have a hx of COPD and is a current smoker. - History of Current Complaint Hx Obtained From: Patient Onset/Duration: Lasting Hours, Still Present Timing: Constant Current Severity: Mild Dyspnea At: Rest Aggrevating Factors: Nothing Alleviating Factors: Nothing Associated Signs & Symptoms: Negative - chest pain, Diaphoresis, Dizzy - Allergy/Home Medications Allergies/Adverse Reactions: Allergies Allergy/AdvReac Type Severity Reaction Status Date / Time amoxicillin Allergy Rash Verified 11/12/18 13:51 oxycodone Allergy Difficulty Verified 11/12/18 13:51 Breathing Sulfa (Sulfonamide Allergy Shakes Verified 11/12/18 13:51 Antibiotics) PMH/Surg Hx/FS Hx/Imm Hx Previously Healthy: No Endocrine/Hematology History: Reports: Hx Diabetes - T2DM Denies: Hx Anticoagulant Therapy, Hx Blood Disorders, Hx Blood Transfusions, Hx Bone Marrow Disease, Hx Systemic Lupus Erythematosus, Hx Sickle Cell Disease , Hx Thyroid Disease, Hx Anemia, Hx Unexplained Bleeding, Other Endocrine/ Hematological Disorders Cardiovascular History: Reports: Hx Angina, Hx Hypercholesterolemia, Hx Hypertension, Hx Syncope Denies: Hx Aneurysm, Hx Angioplasty, Hx Auto Implanted Cardiovert Defib, Hx Cardiac Arrest, Hx Cardiomegaly, Hx Congenital Heart Disease, Hx Congestive Heart Failure, Hx Coronary Artery Disease, Hx Deep Vein Thrombosis, Hx Embolism , Hx Hypotension, Hx Pacemaker/ICD, Hx Peripheral Vascular Disease, Hx Rheumatic Fever, Hx Valvular Heart Disease, Other Cardiovascular Problems/ Disorders Respiratory History: Reports: Hx Asthma - copd, Hx Chronic Obstructive Pulmonary Disease (COPD), Hx Sleep Apnea - 2L at night w/CPAP Denies: Hx Chronic Bronchitis, Hx Cystic Fibrosis, Hx Lung Cancer, Hx Pleural Effusion, Hx Pneumonia, Hx Pulmonary Edema, Hx Pulmonary Embolism, Hx Seasonal Allergies Comment Only: Other Respiratory Problems/Disorders - copd, o2 2l at night GI History: Denies: Hx Cirrhosis, Hx Crohn's Disease, Hx Diverticulosis, Hx Gall Bladder Disease, Hx Gastroesophageal Reflux Disease, Hx Gastrointestinal Bleed, Hx Hiatal Hernia, Hx Irritable Bowel, Hx Jaundice, Hx Obstructive Bowel, Hx Ileostomy, Hx Pyloric Stenosis, Hx Ulcer, Other GI Disorders History: Reports: Hx Benign Prostatic Hyperplasia, Hx Kidney Stones Denies: Hx Acute Renal Failure, Hx Chronic Renal Failure, Hx Dialysis, Hx Kidney Infection, Other Problems/Disorders Musculoskeletal History: Denies: Hx Arthritis, Hx Back Problems, Hx Bursitis, Hx Congenital Bone Abnormalities, Hx Fibromyalgia, Hx Gout, Hx Orthopedic Injury, Hx Osteoporosis, Hx Scoliosis, Hx Tendonitis, Other Musculoskeletal History Sensory History: Reports: Hx Contacts or Glasses Denies: Hx Cataracts, Hx Eye Injury, Hx Eye Prosthesis, Hx Glaucoma, Hx Legally Blind, Hx Macular Degeneration, Hx Vision Problem, Hx Deafness, Hx Hearing Aid, Hx Hearing Problem, Other Sensory Impairments Opthamlomology History: Reports: Hx Contacts or Glasses Denies: Hx Cataracts, Hx Eye Injury, Hx Eye Prosthesis, Hx Glaucoma, Hx Legally Blind, Hx Macular Degeneration, Hx Vision Problem, Other Sensory Impairments Neurological History: Reports: Other Neuro Impairments/Disorders - passed out a few times after coughing attack Denies: Hx Dementia, Hx Developmental Delay, Hx Headaches, Hx Migraine, Hx Nerve Disease, Hx Seizures, Hx Spinal Cord Injury, Hx Transient Ischemic Attacks (TIA) Psychiatric History: Denies: Hx Anxiety, Hx Attention Deficit Hyperactivity Disorder, Hx Eating Disorder, Hx Depression, Hx Panic Disorder, Hx Post Traumatic Stress Disorder, Hx Inpatient Treatment, Hx Community Mental Health Tx, Hx Schizophrenia, Hx Bipolar Disorder, Hx Suicide Attempt, Hx of Violent Episodes Against Others, Hx Substance Abuse, Other Psychiatric Issues/Disorders - Cancer History Hx Chemotherapy: No Hx Radiation Therapy: No Hx Palliative Cancer Treatment: No - Surgical History Surgery Procedure, Year, and Place: APPY, KIDNEY STONE RETRIEVAL,FISTULA REPAIR Hx Anesthesia Reactions: No Infectious Disease History: No Infectious Disease History: Denies: Hx Clostridium Difficile, Hx Hepatitis, Hx Human Immunodeficiency Virus (HIV), Hx of Known/Suspected MRSA, Hx Shingles, Hx Tuberculosis, History Other Infectious Disease, Traveled Outside the [place] in Last 30 Days - Family History Known Family History: Positive: Hypertension Negative: Diabetes - Social History Alcohol Use: Daily Alcohol Amount: pt states "a few shots of april a day" Hx Substance Use: No Substance Use Type: Reports: None Hx Tobacco Use: Yes - former smoker Smoking Status (MU): Light Every Day Tobacco Smoker Type: Cigarettes Amount Used/How Often: 1-2 cigarettes/day Have You Smoked in the Last Year: Yes Review of Systems Negative: Fever Negative: Chest Pain Positive: Shortness Of Breath Neurological: Other - Dizziness All Other Systems Reviewed And Are Negative: Yes Physical Exam - Summary Physical Exam Summary: Appearance: Well-appearing, obese male, lying in bed comfortably, no acute distress Skin: Warm, dry, no obvious rash Eyes: sclera anicteric, no conjunctival pallor ENT: mucous membranes moist, pharynx appears normal Neck: Supple, nontender Respiratory: Diffuse end expiratory wheezing. Preserved aeration. Cardiovascular: Heart is irregularly irregular with a rapid rate Abdomen: Soft, nontender, normal active bowel sounds present Musculoskeletal: Normal, Strength/ROM Intact Neurological: A&Ox3, awake and alert, mentation is normal, speech is fluent and appropriate Psychiatric: affect is normal, does not appear anxious or depressed Triage Information Reviewed: Yes Vital Signs On Initial Exam: Initial Vitals Temp Pulse Resp BP Pulse Ox 97 F 130 28 130/74 98 11/27/18 19:24 11/27/18 19:24 11/27/18 19:24 11/27/18 19:24 11/27/18 19:24 Vital Signs Reviewed: Yes Diagnostics - Vital Signs Vital Signs Temp Pulse Resp BP Pulse Ox 11/27/18 19:24 97 F 130 28 130/74 98 - Laboratory Result Diagrams: 11/27/18 20:12 11/28/18 03:28 Lab Statement: Any lab studies that have been ordered have been reviewed, and results considered in the medical decision making process. - EKG 193 Cardiac Rate: Other Rate - runs of VT interspersed on a background rhythm of atrial fibrillation. 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 Course/Dx - Course Course Of Treatment: This patient is a 73 year old male brought in by ambulance to [facility] with a chief complaint of dizziness and SOB since 1-2 hours ago. Patient states that he suddenly felt dizzy and felt like he was going to pass out while eating dinner. 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 Bloodwork Obtained. Urinalysis Obtained. In the ED course the patient was given NS 0.9% bolus IV, Nexterone, Magnesium sulfate. We discussed patient care with Dr. Rocha ( Business Services Officer) at 1942 and they agreed with the decision to administer magnesium sulfate to start. We discussed patient care with Dr. Hernández (Hospitalist) at 2039 and they agreed to accept the patient. Patient will be admitted with a dx of Ventricular Tachycardia. The patient is agreeable with this plan. - Diagnoses Provider Diagnoses: Ventricular tachycardia - Physician Notifications Discussed Care of Patient With: Keith Rocha - Business Services Officer Time Discussed With Above Provider: 19:43 - We discussed patient care with Dr. Rocha (Business Services Officer) at 1942 and they agreed with the decision to administer magnesium sulfate to start. Instructed by Provider To: Admit As Inpatient - We discussed patient care with Dr. Hernández (Hospitalist) at 2039 and they agreed to accept the patient. - Critical Care Time Critical Care Time: 30-74 min Discharge - Sign-Out/Discharge Documenting (check all that apply): Patient Departure - Admission - Discharge Plan Condition: Stable Disposition: ADMITTED TO [facility] - Billing Disposition and Condition Condition: STABLE Disposition: Admitted to [facility] - Attestation Statements Document Initiated by Kadi: Yes Documenting Scribe: Jeramy Richmond Provider For Whom Kadi is Documenting (Include Credential): MD Everardo Puriibaaron Attestation: Jeramy Alberto scribed for Marcelo Mullins MD on 11/28/18 at 0430. Scribe Documentation Reviewed: Yes Provider Attestation: The documentation as recorded by the Jeramy nuñez accurately reflects the service I personally performed and the decisions made by , Marcelo Mullins MD Status of Scribaaron Document: Viewed
[2018-11-27 20:25] LABS: ABS Basophils 0.1 10^3/ul (0-0.2); ABS Eosinophils 0.1 10^3/ul (0-0.6); ABS Lymphocytes 2.9 10^3/ul (1.0-4.8); ABS Nucleated RBC 0 10^3/ul; Eosinophil % 0.7 %; Hematocrit 49 % (36-46); Hemoglobin 16.6 g/dL (14.0-18.0); Lymphocyte % 20.6 %; Mean Corpuscular HGB Conc 34 g/dL (31-36); Mean Corpuscular Hemoglobin 33 pg (27-31); Mean Corpuscular Volume 98 fL (80-94); Nucleated Red Blood Cells % 0; Platelet Count 187 10^3/uL (150-450); Red Blood Count 4.98 10^6 /uL (4.18-5.48); Red Cell Distribution Width 14 % (10.5-15)
[2018-11-27 20:41] LABS: ALT 40 U/L (7-52); AST 17 U/L (13-39); Albumin 3.9 g/dL (3.2-5.2); Albumin/Globulin Ratio 1.7 (1-3); Alkaline Phosphatase 62 U/L (34-104); Anion Gap 11 mmol/L (2-11); BUN/Creatinine Ratio 23.6 (8-20); Blood Urea Nitrogen 25 mg/dL (6-24); CO2 Carbon Dioxide 31 mmol/L (22-32); Calcium 9.3 mg/dL (8.6-10.3); Chloride 96 mmol/L (101-111); EGFR African American 83.3 (>60); EGFR Non-African American 68.9 (>60); Globulin 2.3 g/dL (2-4); Glucose 210 mg/dL (70-100); Magnesium 1.7 mg/dL (1.9-2.7); Potassium 3.1 mmol/L (3.5-5.0); Sodium 138 mmol/L (135-145); Total Protein 6.2 g/dL (6.4-8.9)
[2018-11-27 20:44] LABS: Troponin I 0.01 ng/mL (<0.04)
[2018-11-27 20:51] LABS: Alcohol < 10 mg/dL (<10)
[2018-11-27 21:02] LABS: TSH (Thyroid Stimulating Horm) 3.33 mcIU/mL (0.34-5.60)
[2018-11-27] MEDS ORDERED: Acetaminophen TAB* 325 MG PO PRN (21:39)
[2018-11-27] MEDS ORDERED: Ipratropium 0.5MG/2.5ML NEB* 0.5 MG/2.5 ML NEB.SOLN INH PRN (21:39)
[2018-11-27] MEDS ORDERED: Albuterol 2.5 MG/3 ML NEB.SOL* (0.083%) INH PRN (21:39)
[2018-11-27] MEDS ORDERED: Albuterol HFA INHALER* 8 gm MDI INH PRN (21:39)
[2018-11-27] MEDS ORDERED: Dextrose 50% Syringe 50 ML* 25 GM/50 ML SYRINGE IV PUSH PRN (21:44)
[2018-11-27] MEDS: KCL 20 MEQ/100 ML IVPREMIX* 20 MEQ/100 ML BAG IV SCH (23:29)
[2018-11-27] MEDS: Heparin VIAL(*) 5000 UNITS/ML VIAL (FIVE THOUSAND) SUBCUT SCH (23:33)
--- NOTE | 2018-11-28 00:32 | HP ---
CC: Lluvia Stevens NP; Dr. Rocha * HISTORY AND PHYSICAL: DATE OF ADMISSION: 11/27/18 TIME OF EVALUATION: 9:15 p.m. PRIMARY CARE PROVIDER: Lluvia Stevens NP CONSULTING ARMATURE STRAIGHTENER: Dr. Rocha. CHIEF COMPLAINT: "I almost passed out." HISTORY OF PRESENT ILLNESS: Mr. Taylor is a 73-year-old male, known to the hospitalist service from a prior admission from 11/12/18 to 11/14/18. At that time, he had presented with complaints of shortness of breath, was found to have COPD exacerbation secondary to bronchitis but during that admission, he was also found to have symptomatic ventricular tachycardia. His workup included a transthoracic echocardiogram that showed a normal ejection fraction as well as a nuclear stress test with a very small area of stress-induced ischemia at the apex. This stress test was felt to be low risk. His initial EKG on that admission had a QTc of 562 and the last one prior to discharge was 453. The case was discussed with Dr. Wen prior to discharge and he felt that his prolonged QTc was secondary to the antibiotics that he had been on including doxycycline, levofloxacin, azithromycin that he thought could have provoked his QT prolongation. The plan at that time was for the patient to be discharged home to follow up with Cardiology as outpatient and to maintain his electrolytes at a normal level. The patient states that he went home and he was initially feeling well, but he continued to have the episodes of palpitations and near syncope. He was convinced that the potassium chloride he was taking was provoking the episodes, so he contacted his primary care provider yesterday and was told to hold his potassium chloride. He states that today he woke up in his usual state of health but around 4 p.m., he was sitting, working on his computer when he had the same symptoms again, but this time they did not resolve and 911 was called. On arrival to the emergency room, his heart rate was in the low 100s and he was found to have symptomatic runs of V-tach on the monitor. Zoll pads were put in place and he was started on an amiodarone drip with resolution of his V-tach. The hospitalist service was called for admission. PAST MEDICAL HISTORY: 1. Central obesity with a BMI of 36.3. 2. Type 2 diabetes. 3. COPD. 4. Hypertension. 5. Hyperlipidemia. 6. BPH. 7. Obstructive sleep apnea, on BiPAP of 2 L of oxygen at bedtime. 8. Nephrolithiasis. 9. Admission to [facility] in July with COPD exacerbation secondary to pneumonia; in October with COPD exacerbation and lower extremity cellulitis and earlier this month with sepsis, COPD exacerbation, and pneumonia. MEDICATION LIST: 1. Albuterol nebulizer 2.5 mg inhale 4 times a day p.r.n. shortness of breath and wheezing. 2. Albuterol HFA 2 puffs inhale q.4 hours p.r.n. shortness of breath and wheezing. 3. Aspirin 81 mg p.o. daily. 4. Hydrochlorothiazide 25 mg p.o. daily. 5. Insulin glargine 40 units subcutaneously daily. 6. Multivitamin 1 tablet p.o. daily. 7. Potassium chloride 10 mEq daily. 8. Prednisone 10 mg p.o. daily, last dose tomorrow. 9. Simvastatin 10 mg p.o. at bedtime. 10. Tamsulosin 0.4 mg p.o. at bedtime. ALLERGIES: The patient had difficulty breathing with OXYCODONE, rash with AMOXICILLIN, and shaking with SULFA. FAMILY HISTORY: The patient's father had colon cancer, diabetes, and passed of heart disease in his 70s. Mother had hypertension and passed in a motor vehicle accident. SOCIAL HISTORY: The patient has been a smoker since age 18 up to 1 pack a day and he usually chews tobacco too. He has quit on and off, the last time was on his last admission, but now he is once again smoking 1 to 2 cigarettes a day. Denies drug use. He drinks 1 to 2 alcoholic beverages a day. 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 Surrogate decision maker is his son, Sigifredo Taylor, phone number is [phone]. REVIEW OF SYSTEMS: A 14-point review of systems was performed and all the pertinent negative and positive findings are in the HPI. PHYSICAL EXAMINATION GENERAL: The patient is an obese gentleman, sitting up in the stretcher, in no acute distress. VITAL SIGNS: Temperature 97.0, heart rate 84, respiratory rate 23, oxygen saturation 98% on 2 L nasal cannula, blood pressure 113/78. HEENT: Pupils are equal. Moist mucous membranes. CHEST: Breath sounds bilaterally diminished with no added sounds. CVS: Normal S1, S2. Regular rate and rhythm. ABDOMEN: Obese, soft. Bowel sounds present. EXTREMITIES: No edema. NEUROLOGIC: He is alert and oriented x3. Able to move all 4 extremities. Face is symmetric. Speech is clear. DIAGNOSTIC STUDIES/LAB DATA: The patient had a CBC that showed WBC of 14, hemoglobin of 16.6, hematocrit of 49, platelets of 187,000 with 71% neutrophils. Chemistry showed a sodium of 138, potassium of 3.1, chloride of 96 , bicarb of 31, BUN of 25, creatinine of 1.0, glucose of 210, lactic acid 2.3, calcium 9.3. Magnesium 1.7. LFTs are normal. TSH is 3.3. Serum alcohol less than 10. EKG done on 11/27/18 revealed a wide complex tachycardia at 167 beats per minute and this is new when compared to his prior EKG from 11/17/18. ASSESSMENT AND PLAN: Mr. Taylor is a 73-year-old male with a past medical history of obesity, type 2 diabetes, chronic obstructive pulmonary disease, hypertension, hyperlipidemia, benign prostatic hypertrophy, obstructive sleep apnea on BiPAP of 2 L of oxygen at bedtime, nephrolithiasis, multiple admissions to [facility] for chronic obstructive pulmonary disease exacerbation, no sustained ventricular tachycardia, who presents to the emergency room with symptomatic ventricular tachycardia. 1. Symptomatic ventricular tachycardia. The patient had a workup on his prior admission that included an echocardiogram with a normal ejection fraction and a stress test that did not show any significant ischemic disease. At that point, the impression was that he had QT prolongation and no sustained ventricular tachycardia due to multiple antibiotics that he had taken for his recurrent episodes of chronic obstructive pulmonary disease exacerbation. At that time, on discharge, his QTc was improving and the plan was for him to follow up with Cardiology as outpatient. He actually has an appointment scheduled with Dr. Watson on 12/11/18. At this time, the patient is responding to amiodarone and the plan is to have him admitted to the intensive care unit, so we can continue his amiodarone drip. A cardiology consultation was requested with Dr. Rocha. His hypokalemia and hypomagnesemia are certainly playing a role on his ventricular tachycardia also, so I will replete his electrolytes with a goal of a potassium greater than 4 and magnesium greater than 2. 2. Mild lactic acidosis. This is secondary to poor perfusion associated with ventricular tachycardia. The patient does not have sepsis at this time. We will trend his lactic acid, but as his rhythm improves, his perfusion should improve too and his lactic acid should normalize. 3. Leukocytosis. This is secondary to steroid use. The patient does not have signs or symptoms of infection at this time. 4. Chronic obstructive pulmonary disease. Stable at this time. We will continue his bronchodilators. 5. Type 2 diabetes. We will continue Lantus and lispro sliding scale. 6. Hypertension. His blood pressure is normal at this time. I am holding his hydrochlorothiazide at this point and we will monitor his blood pressure. 7. Obstructive sleep apnea. We will continue BiPAP with supplemental oxygen. 8. DVT prophylaxis. The patient has a score of 3 on a DVT Risk Assessment Guide and he will be started on subcutaneous heparin. 9. Code status is full. TIME SPENT: Approximately 60 minutes were spent with the patient and family ( significant other, son, daughter) interview, medical records review, physical examination to complete the admission; more than half of this time was spent [id number] with the patient in coordination of care. [id number]/CPS #: [id number] KORINA
[2018-11-28] MEDS ORDERED: Amiodarone 360 MG IVPREMIX* 360 MG/200 ML BAG IV SCH (01:30)
[2018-11-28] MEDS: KCL 20 MEQ/100 ML IVPREMIX* 20 MEQ/100 ML BAG IV SCH ×2 (01:35→05:29)
[2018-11-28 02:22] LABS: BUN/Creatinine Ratio 24.5 (8-20); Blood Urea Nitrogen 24 mg/dL (6-24); CO2 Carbon Dioxide 30 mmol/L (22-32); Calcium 8.7 mg/dL (8.6-10.3); Chloride 100 mmol/L (101-111); EGFR African American 91.2 (>60); EGFR Non-African American 75.4 (>60); Glucose 143 mg/dL (70-100); Sodium 137 mmol/L (135-145)
[2018-11-28 02:28] LABS: Anion Gap 7 mmol/L (2-11)
[2018-11-28] MEDS: Heparin VIAL(*) 5000 UNITS/ML VIAL (FIVE THOUSAND) SUBCUT SCH ×3 (05:36→20:14)
[2018-11-28 06:14] LABS: ABS Basophils 0 10^3/ul (0-0.2); ABS Eosinophils 0.1 10^3/ul (0-0.6); ABS Lymphocytes 2.7 10^3/ul (1.0-4.8); ABS Monocytes 0.9 10^3/ul (0-0.8); ABS Neutrophils 6.6 10^3/ul (1.5-7.7); ABS Nucleated RBC 0 10^3/ul; Eosinophil % 1.1 %; Hematocrit 45 % (36-46); Hemoglobin 15.4 g/dL (14.0-18.0); Mean Corpuscular HGB Conc 34 g/dL (31-36); Mean Corpuscular Hemoglobin 34 pg (27-31); Mean Corpuscular Volume 99 fL (80-94); Mean Platelet Volume 7.8 fL (7.4-10.4); Nucleated Red Blood Cells % 0; Platelet Count 178 10^3/uL (150-450); Red Blood Count 4.61 10^6 /uL (4.18-5.48); Red Cell Distribution Width 14 % (10.5-15); White Blood Count 10.3 10^3/uL (3.5-10.8)
[2018-11-28 06:33] LABS: BUN/Creatinine Ratio 22.8 (8-20); Calcium 8.8 mg/dL (8.6-10.3); EGFR African American 88.1 (>60); EGFR Non-African American 72.8 (>60); Potassium 3.9 mmol/L (3.5-5.0)
--- NOTE | 2018-11-28 08:43 | CONSULT ---
Subjective Date of Service: 11/28/18 Interval History: Admission Date: 11/27/18 Consult date 11/28/2018 Provider: Hospitalist service PRIMARY CARE PROVIDER: Lluvia Stevens NP CHIEF COMPLAINT: Palpitations, lightheadedness. HISTORY OF PRESENT ILLNESS: Mr. Taylor is a 73-year-old man with a history as below including but not limited to ongoing tobacco use, obesity and COPD. He has an upcoming new appointment with me on 12/05/2018. I also see his significant other Leni Astorga as a patient. He has had intermittent palpitations and lightheadedness the past year. Last admission he was found with arrhythmias (not available to review) and had an echocardiogram and stress test as below. His QT was prolonged felt to be related to antibiotics. He takes HCTZ for blood pressure. He was admitted and found with symptomatic intermittent arrhythmias and severe lightheadedness. He checked his 02 sats and they were 96%. He denies any outright syncope. He has stable WARE and no chest discomfort. It was initially felt the arrhythmias were VT and he was placed on IV amiodarone infusion and his electrolytes were replaced. Looking at his EKG's and telemetry strips, it appears his arrhythmias are SVT with mild aberrancy compared to his baseline RBBB. He has scattered diffuse wheezing on exam. PAST MEDICAL HISTORY: 1. Obesity 2. Type 2 diabetes. 3. COPD. 4. Hypertension. 5. Hyperlipidemia. 6. BPH. 7. Obstructive sleep apnea, on BiPAP of 2 L of oxygen at bedtime. 8. Nephrolithiasis. 9. Admission to [facility] in July with COPD exacerbation secondary to pneumonia; in October with COPD exacerbation and lower extremity cellulitis and earlier this month with sepsis, COPD exacerbation, and pneumonia. ALLERGIES: The patient had difficulty breathing with OXYCODONE, rash with AMOXICILLIN, and shaking with SULFA. FAMILY HISTORY: The patient's father had colon cancer, diabetes, and passed of heart disease in his 70s. Mother had hypertension and passed in a motor vehicle accident. SOCIAL HISTORY: The patient has been a smoker since age 18 up to 1 pack a day and he usually chews tobacco too. He has quit on and off, the last time was on his last admission, but now he is once again smoking 1 to 2 cigarettes a day. Denies drug use. He drinks 1 to 2 alcoholic beverages a day. 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. Surrogate decision maker is his son, Sigifredo Taylor, phone number is [phone]. Medications Active Medications: Acetaminophen (Tylenol Tab*) 650 mg PO Q6H PRN PRN Reason: pain/fever Albuterol (Ventolin 2.5 Mg/3 Ml Neb.Claudette*) 2.5 mg INH QID PRN PRN Reason: SOB/WHEEZING Aspirin (Aspirin Ec Tab*) 81 mg PO DAILY [facility] Dextrose (D50w Syringe 50 Ml*) 12.5 gm IV PUSH .FOR FS < 60 - SS PRN PRN Reason: FS < 60 Diltiazem HCl (Tiazac(Nf)) 120 mg PO BID [facility]; Protocol Heparin Sodium (Porcine) (Heparin Vial(*)) 5,000 units SUBCUT Q8HR [facility] Last Admin: 11/28/18 05:36 Dose: 5,000 units Insulin Glargine (Lantus(*)) 30 units SUBCUT DAILY [facility] Insulin Human Lispro (Humalog*) 0 units SUBCUT ACHS [facility]; Protocol Ipratropium [place] (Atrovent 0.5 Mg Neb.Claudette*) 0.5 mg INH TID PRN PRN Reason: SHORTNESS OF BREATH Magnesium Oxide (Magox 400 Tab*) 400 mg PO DAILY [facility] Multivitamins/Minerals (Theragran/Minerals Tab*) 1 tab PO DAILY [facility] Prednisone (Deltasone Tab*) 10 mg PO DAILY [facility] Stop: 11/28/18 23:59 Simvastatin (Zocor(Nf)) 10 mg PO BEDTIME [facility] Tamsulosin HCl (Flomax Cap*) 0.4 mg PO QPM [facility] Home Medications: Hydrochlorothiazide TAB* [Hydrodiuril TAB*] 25 mg PO QAM 11/26/12 [History Confirmed 11/27/18] Simvastatin TAB(NF) [Zocor 10 MG (NF)] 10 mg PO BEDTIME 11/26/12 [History Confirmed 11/27/18] Albuterol HFA INHALER* [Ventolin HFA Inhaler*] 2 puff INH Q4H PRN 11/11/16 [ History Confirmed 11/27/18] Tamsulosin CAP* [Flomax CAP*] 0.4 mg PO QPM 12/31/16 [History Confirmed 11/27/18 ] Multivitamins/Minerals TAB* [Theragran/minerals TAB*] 1 tab PO DAILY 09/27/17 [ History Confirmed 11/27/18] Albuterol 2.5MG/3ML (0.083%)* [Ventolin 2.5 MG/3 ML NEB.CLAUDETTE*] 2.5 mg INH QID PRN 07/28/18 [History Confirmed 11/27/18] Insulin Glargine,Hum.rec.anlog [Basaglar Kwikpen U-100] 40 unit SUBCUT DAILY [History Confirmed 11/27/18] Aspirin [Aspirin EC] 81 mg PO DAILY #30 tablet.dr 11/17/18 [Rx Confirmed ] Potassium Chlor TAB* [Klor Con ER TAB 10 MEQ*] 10 meq PO DAILY #30 tab.er [Rx Confirmed 11/27/18] predniSONE TAB* [Deltasone 20 MG TAB*] 10 mg PO DAILY 11/27/18 [History Confirmed 11/27/18] Review of Systems - Measurements Intake and Output: Intake and Output Last 24 Hours 11/26/18 11/27/18 11/28/18 11/29/18 06:59 06:59 06:59 06:59 Intake Total 1453 Output Total 350 Balance 1103 Weight 267 lb 13.786 oz Intake: IV Fluids 1246 NS (0.9%) 846 Medicated IV 157 CC - Amiodarone 157 Oral 50 Output: Urine 350 - Review of Systems Constitutional Symptoms: Positive: Weakness, Fatigue Dermatology: Negative: Rash, Skin Lesions HEENT: Negative: Change in Hearing, Vertigo Eyes: Negative: Change in Vision, Double Vision Thyroid: Positive: Palpitations Negative: Change in Skin/Hair, Change in Menstration Pulmonary: Positive: Cough, Wheezing, Shortness of Breath, COPD, Exercise Intolerance, Home Oxygen Cardiology: Positive: Shortness of Breath, Palpitations, Faintness Negative: Chest Pain, Swelling of Ankles, Peripheral Vascular Dis, Edema, Syncope, Paroxysmal Nocturnal Dyspnea, Orthopnea Gastroenterology: Negative: Abdominal Pain, Nausea, Vomiting, Anorexia Musculoskeletal: Negative: Joint Pain, Joint Stiffness Endocrinology: Positive: Obesity, Diabetes Hematologic/Lymphatic: Positive: Use of Antiplatelet Drugs Negative: Hx Leukemia, Hx Lymphoma, Use of Anticoagulant Neurology: Negative: Headaches, Migraines, Change in Vision, Diplopia, Change in Balancing, Change in Coordination, Change in Memory, Hx Seizures Psychiatry: Negative: Unusual Anxiety, Suicidal Ideation Allergic/Immunologic: Negative: Hx HIV, Immunocompromise Review of Systems Statement: All other review of systems negative, unless stated above. Objective Vital Signs: Temp Pulse Resp BP Pulse Ox 97.2 F 62 16 125/78 100 11/28/18 05:39 11/28/18 05:01 11/28/18 05:41 11/28/18 05:00 11/28/18 05:01 Oxygen Devices in Use Now: Nasal Cannula Appearance: nad, pleasant Ears/Nose/Mouth/Throat: Clear Oropharnyx, Mucous Membranes Moist Neck: Trachea Midline, - - uncertain jvp Respiratory: Symmetrical Chest Expansion and Respiratory Effort, - - diffuse scattered wheeze Cardiovascular: No Edema, - - distant heart sounds, rrr Abdominal: - - soft, obese, nontender Extremities: No Edema, No Clubbing, Cyanosis Skin: No Rash or Ulcers Neurological: Alert and Oriented x 3 Laboratory Results: 11/28/18 05:40 11/28/18 05:40 Total Bilirubin 0.50 mg/dL (0.2-1.0) 11/27/18 20:12 AST 17 U/L (13-39) 11/27/18 20:12 ALT 40 U/L (7-52) 11/27/18 20:12 Alkaline Phosphatase 62 U/L (34-104) 11/27/18 20:12 Total Protein 6.2 g/dL (6.4-8.9) L 11/27/18 20:12 Albumin 3.9 g/dL (3.2-5.2) 11/27/18 20:12 Globulin 2.3 g/dL (2-4) 11/27/18 20:12 Albumin/Globulin Ratio 1.7 (1-3) 11/27/18 20:12 TSH 3.33 mcIU/mL (0.34-5.60) 11/27/18 20:12 11/27/18 20:12 Troponin I 0.01 Initial labs potassium of 3.1, Magnesium 1.7. Serum alcohol less than 10. repeat mg 2.0 Diagnostic Imaging: stress MPI 11/17/2018: Small sized, mild intensity inferior/inferoapical defect on stress images that almost entirely corrects (except very mild residual apical ) on attentuation correction. Without prone imaging, the ability to differentiate artifact vs. ischemic defect is limited. EKG Data: ekg 11/17/2018: NSR, RBBB ekg admission 11/27/2018: artrfiact, NSR to start, then ectopic beats then rapid SVT with mild aberrancy compared to baseline telemetry strip 11/28/2018: Appears to be short RP SVT at ~ 160 bpm Assessment/Plan 1. Symptomatic SVT - in setting of electrolyte abnormalities 2. Obesity 3. COPD 4. Ongoing tobacco use - Strongly counseled against further use 5. Sleep apnea 6. DM 7. HTN At this point I recommend to replace K to 4 or greater and Mg to 2 or greater. Will d/c HCTZ since this is likely contributing to electrolyte abnormalities and start long acting extended release diltiazem 120 mg po bid and d/c the IV amiodarone (ordered). I also added long acting magnesium oxide 400 mg po daily (ordered). He was counseled to lay down and try a valsalva maneuver if this were to recur at home. The arrhythmia from telemetry overnight appeared to be a short RP SVT and would likely be amenable to ablation if he were to fail medical management. He will keep his previously arranged cardiology appt on 12/05 Thank you for allowing me to participate in the cardiovascular care of this patient. Please do not hesitate to contact me with questions or concerns.
[2018-11-28] MEDS ORDERED: [UNRECOGNIZED DRUG - OTHER] PO SCH (09:00)
[2018-11-28] MEDS ORDERED: DILTIAZEM PO SCH (09:00)
[2018-11-28] MEDS ORDERED: predniSONE TAB* 10 MG PO SCH (09:00)
[2018-11-28] MEDS ORDERED: Umeclidinium 62.5 MDI(NF) MDI INH SCH (09:00)
[2018-11-28] MEDS ORDERED: Fluticasone/Vilanterol MDI(NF) 100/25 MDI INH SCH (09:00)
[2018-11-28] MEDS: Multivitamins/Minerals TAB PO SCH (09:21)
[2018-11-28] MEDS: Aspirin EC TAB* 81 MG TAB.EC PO SCH (09:21)
[2018-11-28] MEDS: Diltiazem CD CAP* 120 MG PO SCH ×2 (09:21→20:13)
[2018-11-28] MEDS: Magnesium Oxide TAB* 400 MG PO SCH (09:22)
[2018-11-28] MEDS: Insulin LISPRO* 1 UNITS UNIT SUBCUT SCH ×4 (09:22→20:15)
[2018-11-28] MEDS: Insulin GLARGINE(*) 1 UNITS UNIT SUBCUT SCH (09:23)
--- NOTE | 2018-11-28 11:17 | PN ---
Subjective Date of Service: 11/28/18 Interval History: Pt c/o left breast dull "sensation" that eh had been getting occasionally for the past 2 weeks. Gets better after burping. stress test was low risk 1 weeks ago Breathing is :"OK" Denies palpitations Objective Active Medications: Acetaminophen (Tylenol Tab*) 650 mg PO Q6H PRN PRN Reason: pain/fever Albuterol (Ventolin 2.5 Mg/3 Ml Neb.Tory*) 2.5 mg INH QID PRN PRN Reason: SOB/WHEEZING Last Admin: 11/28/18 09:37 Dose: 2.5 mg Aspirin (Aspirin Ec Tab*) 81 mg PO DAILY [facility] Last Admin: 11/28/18 09:21 Dose: 81 mg Dextrose (D50w Syringe 50 Ml*) 12.5 gm IV PUSH .FOR FS < 60 - SS PRN PRN Reason: FS < 60 Diltiazem HCl (Cardizem Cd Cap*) 120 mg PO BID [facility]; Protocol Last Admin: 11/28/18 09:21 Dose: 120 mg Heparin Sodium (Porcine) (Heparin Vial(*)) 5,000 units SUBCUT Q8HR [facility] Last Admin: 11/28/18 05:36 Dose: 5,000 units Insulin Glargine (Lantus(*)) 30 units SUBCUT DAILY [facility] Last Admin: 11/28/18 09:23 Dose: 30 units Insulin Human Lispro (Humalog*) 0 units SUBCUT ACHS [facility]; Protocol Last Admin: 11/28/18 09:22 Dose: 1 unit Ipratropium [place] (Atrovent 0.5 Mg Neb.Tory*) 0.5 mg INH TID PRN PRN Reason: SHORTNESS OF BREATH Magnesium Oxide (Magox 400 Tab*) 400 mg PO DAILY [facility] Last Admin: 11/28/18 09:22 Dose: 400 mg Multivitamins/Minerals (Theragran/Minerals Tab*) 1 tab PO DAILY [facility] Last Admin: 11/28/18 09:21 Dose: 1 tab Prednisone (Deltasone Tab*) 10 mg PO DAILY [facility] Stop: 11/28/18 23:59 Last Admin: 11/28/18 09:21 Dose: 10 mg Simvastatin (Zocor(Nf)) 10 mg PO BEDTIME [facility] Tamsulosin HCl (Flomax Cap*) 0.4 mg PO QPM [facility] Vital Signs - 8 hr 11/28/18 11/28/18 11/28/18 04:00 04:01 05:00 Temperature 97.8 F Pulse Rate 65 65 63 Respiratory 17 14 16 Rate Blood Pressure 122/78 125/78 (mmHg) O2 Sat by Pulse 100 99 100 Oximetry 11/28/18 11/28/18 11/28/18 05:01 05:39 05:41 Temperature 97.2 F Pulse Rate 62 Respiratory 18 16 Rate Blood Pressure (mmHg) O2 Sat by Pulse 100 Oximetry 11/28/18 11/28/18 11/28/18 06:01 07:00 07:01 Temperature Pulse Rate 65 64 64 Respiratory 18 14 19 Rate Blood Pressure 118/76 113/80 (mmHg) O2 Sat by Pulse 100 99 100 Oximetry 11/28/18 11/28/18 11/28/18 08:00 08:01 09:00 Temperature Pulse Rate 61 63 80 Respiratory 20 15 26 Rate Blood Pressure 114/81 (mmHg) O2 Sat by Pulse 99 99 94 Oximetry 11/28/18 11/28/18 11/28/18 09:01 09:14 09:39 Temperature 97.0 F Pulse Rate 77 71 Respiratory 23 20 Rate Blood Pressure 133/96 (mmHg) O2 Sat by Pulse 93 94 Oximetry 11/28/18 11/28/18 10:00 10:01 Temperature Pulse Rate 91 73 Respiratory 21 23 Rate Blood Pressure 124/69 (mmHg) O2 Sat by Pulse 93 93 Oximetry Oxygen Devices in Use Now: Nasal Cannula Result Diagrams: 11/28/18 05:40 11/28/18 05:40 Microbiology and Other Data: Microbiology 11/27/18 23:08 Nasal Screen MRSA (PCR) - Final Nasal Mrsa Not Detected Assess/Plan/Problems-Billing Assessment: Mr Taylor is a 73yo M with PMH of obesity, type 2 DM, COPD, tobacco abuse, HTN, HLD, BPH, MYRON on BiPAP with O2 at night, nephrolithiasis, recent admission for COPD exacerbation, who presented to ED with c/o palpitations and near syncope, found to have wide complex tachycardia due to SVT with aberrancy - Patient Problems (1) Paroxysmal SVT (supraventricular tachycardia) Comment: appreciate Dr. Watson's consult. will transfer on telem and monitor x 24H prior to d/c due to symptomatic SVT Mg and potassium replaced (2) COPD (chronic obstructive pulmonary disease) Comment: not in exacerbation, home truliciity ellipta cont Prednisone 10 mg -remaining from previous admission taper (3) Diabetes Comment: - Continue Lantus and Lispro SS. (4) HTN (hypertension) Comment: - Controlled. - HCTZ d/c's due to electrolyte abn -cont Cardizem CD started by DR. Watson (5) MYRON (obstructive sleep apnea) Comment: - Continue BiPAP with supplemental O2. (6) Chest pain Comment: nonspecific, chronic as per pt, with low probability stress test (7) DVT prophylaxis Comment: - SQ heparin. Status and Disposition: Inpatient
[2018-11-28] MEDS: PTO: FLUTICASONE/UMECLIDIN/VILANTER 1 PUFF MDI INH SCH (11:48)
[2018-11-28] MEDS ORDERED: Tamsulosin CAP* 0.4 MG PO SCH (18:00)
[2018-11-28] MEDS ORDERED: Simvastatin TAB(NF) 10 MG TAB PO SCH (21:00)
[2018-11-29] MEDS: Heparin VIAL(*) 5000 UNITS/ML VIAL (FIVE THOUSAND) SUBCUT SCH ×2 (05:05→14:39)
[2018-11-29 05:38] LABS: BUN/Creatinine Ratio 18.2 (8-20); Calcium 8.7 mg/dL (8.6-10.3); EGFR African American 103.3 (>60); EGFR Non-African American 85.4 (>60); Potassium 3.7 mmol/L (3.5-5.0)
[2018-11-29] MEDS: Insulin LISPRO* 1 UNITS UNIT SUBCUT SCH ×2 (07:56→12:33)
[2018-11-29] MEDS: PTO: FLUTICASONE/UMECLIDIN/VILANTER 1 PUFF MDI INH SCH (08:22)
[2018-11-29] MEDS: Multivitamins/Minerals TAB PO SCH (09:21)
[2018-11-29] MEDS: Magnesium Oxide TAB* 400 MG PO SCH (09:21)
[2018-11-29] MEDS: Aspirin EC TAB* 81 MG TAB.EC PO SCH (09:21)
[2018-11-29] MEDS: Diltiazem CD CAP* 120 MG PO SCH (09:21)
[2018-11-29 09:22] VITALS: BP 121/52
[2018-11-29] MEDS: Insulin GLARGINE(*) 1 UNITS UNIT SUBCUT SCH (09:22)
--- NOTE | 2018-11-29 13:05 | PN ---
Subjective Date of Service: 11/29/18 - CC: heart pounding, dizzy, SVT Interval History: Admission Date: 11/27/18 Consult date 11/28/2018 Provider: Hospitalist service PRIMARY CARE PROVIDER: Lluvia Stevens NP CHIEF COMPLAINT: Palpitations, lightheadedness. The patient has no recurrence of heart pounding or dizziness he had on admission. He has only been walking to bathroom. No c/o on new medications. Medications Active Medications: Acetaminophen (Tylenol Tab*) 650 mg PO Q6H PRN PRN Reason: pain/fever Albuterol (Ventolin 2.5 Mg/3 Ml Neb.Tory*) 2.5 mg INH QID PRN PRN Reason: SOB/WHEEZING Last Admin: 11/28/18 09:37 Dose: 2.5 mg Aspirin (Aspirin Ec Tab*) 81 mg PO DAILY [facility] Last Admin: 11/29/18 09:21 Dose: 81 mg Dextrose (D50w Syringe 50 Ml*) 12.5 gm IV PUSH .FOR FS < 60 - SS PRN PRN Reason: FS < 60 Diltiazem HCl (Cardizem Cd Cap*) 120 mg PO BID [facility]; Protocol Last Admin: 11/29/18 09:21 Dose: 120 mg Heparin Sodium (Porcine) (Heparin Vial(*)) 5,000 units SUBCUT Q8HR [facility] Last Admin: 11/29/18 05:05 Dose: 5,000 units Insulin Glargine (Lantus(*)) 30 units SUBCUT DAILY [facility] Last Admin: 11/29/18 09:22 Dose: 30 units Insulin Human Lispro (Humalog*) 0 units SUBCUT ACHS [facility]; Protocol Last Admin: 11/29/18 12:33 Dose: Not Given Ipratropium [place] (Atrovent 0.5 Mg Neb.Tory*) 0.5 mg INH TID PRN PRN Reason: SHORTNESS OF BREATH Magnesium Oxide (Magox 400 Tab*) 400 mg PO DAILY [facility] Last Admin: 11/29/18 09:21 Dose: 400 mg Multivitamins/Minerals (Theragran/Minerals Tab*) 1 tab PO DAILY [facility] Last Admin: 11/29/18 09:21 Dose: 1 tab Simvastatin (Zocor(Nf)) 10 mg PO BEDTIME [facility] Last Admin: 11/28/18 20:12 Dose: Not Given Tamsulosin HCl (Flomax Cap*) 0.4 mg PO QPM [facility] Last Admin: 11/28/18 18:26 Dose: 0.4 mg Objective Vital Signs: Temp Pulse Resp BP Pulse Ox 97.8 F 67 14 121/52 95 11/29/18 07:51 11/29/18 07:51 11/29/18 07:51 11/29/18 07:51 11/29/18 07:51 Oxygen Devices in Use Now: None, BiPAP Appearance: nad, pleasant, seated in bed, quite overweight. Eyes: No Scleral Icterus Ears/Nose/Mouth/Throat: Clear Oropharnyx, Mucous Membranes Moist Neck: Trachea Midline, - - Thick, no appricable jvp Respiratory: Symmetrical Chest Expansion and Respiratory Effort, - - distant and clear. Cardiovascular: No Edema, - - distant heart sounds, rrr, no murmur. Abdominal: - - soft, obese, nontender Extremities: No Edema, No Clubbing, Cyanosis Skin: No Rash or Ulcers Neurological: Alert and Oriented x 3 Laboratory Results: 11/28/18 05:40 11/29/18 05:02 Total Bilirubin 0.50 mg/dL (0.2-1.0) 11/27/18 20:12 AST 17 U/L (13-39) 11/27/18 20:12 ALT 40 U/L (7-52) 11/27/18 20:12 Alkaline Phosphatase 62 U/L (34-104) 11/27/18 20:12 Total Protein 6.2 g/dL (6.4-8.9) L 11/27/18 20:12 Albumin 3.9 g/dL (3.2-5.2) 11/27/18 20:12 Globulin 2.3 g/dL (2-4) 11/27/18 20:12 Albumin/Globulin Ratio 1.7 (1-3) 11/27/18 20:12 TSH 3.33 mcIU/mL (0.34-5.60) 11/27/18 20:12 11/27/18 20:12 Troponin I 0.01 Diagnostic Imaging: stress MPI 11/17/2018: Small sized, mild intensity inferior/inferoapical defect on stress images that almost entirely corrects (except very mild residual apical ) on attentuation correction. Without prone imaging, the ability to differentiate artifact vs. ischemic defect is limited. EKG Data: ekg 11/17/2018: NSR, RBBB ekg admission 11/27/2018: artrfiact, NSR to start, then ectopic beats then rapid SVT with mild aberrancy compared to baseline telemetry strip 11/28/2018: Appears to be short RP SVT at ~ 160 bpm Tele 11/28-11/29 2018: PAC's, no further SVT. Assessment/Plan 73 yo with acute onset heart racing, dizziness and rapid SVT with abbernacy. Improved with initiation of diltiazem (replacing HCTZ) and with electrolyte replacement. PAST MEDICAL HISTORY: 1. Obesity 2. Type 2 diabetes. 3. COPD. 4. Hypertension. 5. Hyperlipidemia. 6. BPH. 7. Obstructive sleep apnea, on BiPAP of 2 L of oxygen at bedtime. 8. Nephrolithiasis. 9. Admission to [facility] in July with COPD exacerbation secondary to pneumonia; in October with COPD exacerbation and lower extremity cellulitis and earlier this month with sepsis, COPD exacerbation, and pneumonia. I recommended the patient amublate on the floor. Tentative discharge today on current medications. Has follow up with Dr Watson 12/05/18 (Cardiology).
--- NOTE | 2018-11-29 23:58 | DS ---
DISCHARGE SUMMARY: DATE OF ADMISSION: 11/27/18 DATE OF DISCHARGE: 11/29/18 PRIMARY DIAGNOSES: 1. Symptomatic supraventricular tachycardia. 2. Significant dizziness secondary to arrhythmia. 3. Hypokalemia. 4. Hypomagnesemia. HOSPITAL COURSE: A 73-year-old male with history of ongoing tobacco use, obesity, COPD, sleep apnea, on home CPAP, with recent admission for COPD exacerbation. He came into the hospital with complaint s of palpitations and near syncopal episode and dizziness. Initially, when the patient came to the E [facility], patient was thought to have symptomatic runs of V-tach. Zoll pads were put in place and patient w as started on amiodarone drip with resolution of his V-tach. During his prior hospital stay, he had had an echocardiogram with normal ejection fraction and stress test, which did not show significant i schemic disease. At that time, he was thought to have QT prolongation and nonsustained V-tach due to multiple antibiotics that he had taken for his COPD exacerbation that could have prolonged his QTc. The patient was scheduled to see Dr. Watson as an outpatient on 12/11/18. In the interim, he develo ped these episodes of dizziness after he was discharged and came back to the hospital for evaluation. Patient was noted to have mild lactic acidosis, which was thought to be secondary to decreased perf usion and this was improved. Patient was completing his steroid course from his recent hospital stay . Patient was seen by Cardiology, Dr. Watson, who reviewed his EKG and rhythm strips and felt that th e arrhythmias were more supraventricular tachycardia with mild aberrancy compared to his baseline rig ht bundle-branch block. Patient was also noted to be hypokalemic and hypomagnesemic, certainly contr ibuting to his arrhythmias. In light of this, he recommended stopping the hydrochlorothiazide, which was done, which can contribute to electrolyte abnormalities and instead starting a long-acting exten ded release diltiazem 120 mg p.o. b.i.d., which the patient was started on. Also, he recommended sto pping the amiodarone. He also added long-acting magnesium oxide 400 mg p.o. daily. If he has recurr ent episodes, an ablation could be considered, per Cardiology, if he failed medical management. [facility] an appointment with Dr. Watson on 12/05/18. Patient has done well on the above regimen an d at this time eager to home. His overnight telemetry strips have been reviewed. Patient will be di scharged on extended release diltiazem 120 mg p.o. b.i.d. and the hydrochlorothiazide will be stopped . Patient was also given a prescription for magnesium oxide 400 mg every day. Patient is not being discharged on a potassium supplement and has been maintaining his potassium while in the hospital wit h this regimen. However, if patient is noted to be hypokalemic as an outpatient, his potassium suppl ementation can be restarted. Vitals and labs are noted to be stable at the time of discharge. PHYSICAL EXAMINATION: Vitals: Temperature 97.8, pulse 67, respiratory rate 14, oxygen saturation 95 % on room air, blood pressure is 121/52. HEENT: NCAT. Heart: S1 and S2 present. Regular at the ti me of exam. Lungs: Decreased breath sounds at the time of exam. No wheezing. No rhonchi. Abdomen : Soft, nontender. Obese. Extremities: Noted to have no edema. Neuro: Alert and oriented. MEDICATION LIST: At the time of discharge: 1. Simvastatin 10 mg p.o. q.h.s. 2. Albuterol 2 puffs inhalation q.4 hours p.r.n. 3. Tamsulosin 0.4 mg p.o. q.p.m. 4. Multivitamin every day. 5. Ventolin as needed. 6. Insulin glargine 40 units subcutaneously daily. 7. Aspirin 81 mg daily. 8. Magnesium oxide 400 mg p.o. daily. 9. Atrovent nebulizer as needed. 10. Diltiazem 120 mg p.o. b.i.d. 11. Tylenol as needed. CONDITION: Stable at the time of discharge. DISPOSITION: The patient will be discharged to home in stable condition. FOLLOWUP: Patient is to follow up with his PCP in 1 to 2 weeks. Patient is to follow up with Cardio logy as schedule, on 12/05/18. TIME SPENT: Total time spent on discharge is equal to 45 minutes. [id number]/[facility] #: [id number]
== END 2018-11-29 15:54 | disposition home or self-care (01) | DRG 309 ==
LOC: ED 19:17 → ICU 21:24 → MED 11-28 11:57
PROVIDERS: ADMIT Internal Medicine; ATTEND Internal Medicine
PROC: 5A09357 Assistance with Respiratory Ventilation, Less than 24 Consecutive Hours, Continuous Positive Airway Pressure (ICD-10-PCS; principal; 2018-11-27)
DX: I47.1 Supraventricular tachycardia (principal); E87.2 Acidosis; E11.9 Type 2 diabetes mellitus without complications; E78.00 Pure hypercholesterolemia, unspecified; I10 Essential (primary) hypertension; J44.9 Chronic obstructive pulmonary disease, unspecified; G47.30 Sleep apnea, unspecified; E78.5 Hyperlipidemia, unspecified; G47.33 Obstructive sleep apnea (adult) (pediatric); F17.210 Nicotine dependence, cigarettes, uncomplicated; E66.9 Obesity, unspecified; I45.10 Unspecified right bundle-branch block; N40.0 Benign prostatic hyperplasia without lower urinary tract symptoms; E87.6 Hypokalemia; E83.42 Hypomagnesemia; Z87.442 Personal history of urinary calculi; Z82.49 Family history of ischemic heart disease and other diseases of the circulatory system; Z88.6 Allergy status to analgesic agent; Z88.0 Allergy status to penicillin; Z88.2 Allergy status to sulfonamides; Z72.89 Other problems related to lifestyle; Z68.36 Body mass index [BMI] 36.0-36.9, adult; Z83.3 Family history of diabetes mellitus; Z80.0 Family history of malignant neoplasm of digestive organs; Z79.82 Long term (current) use of aspirin; Z79.4 Long term (current) use of insulin
CPT/HCPCS: 36415; 80048; 80053; 80320; 83605; 83735; 84443; 84484; 85025; 87641; 93005; 94640; 94660; 99283; A9270-GY; G0480; J0282; J1644; J3475; J3480; J7512

== ENCOUNTER 2018-12-31 04:44 | Emergency (ER) | payer MEDICARE ==
--- OUTSIDE RECORDS SUMMARY | 2018-12-31 04:57 | XMS REPORT | Continuity of Care Document ---
:1945 External Reference #:[id number] Author Name Doris Simms Care Team Providers Name Role Phone Lluvia Stevens NP Care Team Information Transportation Dispatch Manager Unavailable Lluvia Stevens NP Primary Care Physician Unavailable Payers Date Identification Numbers Payment Provider Subscriber Policy Number: [id number] [facility] Todays Options Brandan Taylor PayID: [id number] [address] [address] Attn: [place] [address] Advance Directives Description No Information Available Problems [...] respiratory infection Onset: 07/28/2018 Pneumonia Logan Torrez N.Chato. Active Onset: 07/28/2018 Essential hypertension Logan Torrez [...] smoker, smokes every day Smoking Status Reviewed: 12/05/18 Patient is a current 2 per day smoker, smokes every day Exercise Type/Frequency Exercises rarely More since quit smoking 2 weeks ago 10/03/17 Allergies, Adverse Reactions, Alerts Date Description Reaction Status Severity Comments 04/24/2017 Hydrocodone Respiratory Distress Active 03/21/2018 Amoxicillin Active 11/25/2018 Antibiotic Dizziness Active At [facility]. Does not know which abx 06/06/2015 NKDA Inactive Medications Medication Date Status Form Strength Qnty SIG Indications Ordering Provider Ventolin HFA Active Aerosol 108(90Bas inhale 2 Unknown e) puffs every mcg/Act six hours prn Multiple Active Tablets 1 po qd Unknown Vitamin/Minerals /0000 Simvastatin Active Tablets 10mg take 1 tablet at bedtime Tamsulosin HCL Active Capsules 0.4mg 1 by mouth Unknown / every day Basaglar Kwikpen Active Solution 100Unit/M Inject 35 Unknown 0000 Pen-Injec L Subcutaneou t sly Every Day Aspirin 81 Active Tablets 81mg 1 by mouth Unknown /0000 DR every day Tylenol 8 Hour Active Tablets 650mg 1 pill q6h Unknown /0000 ER prn Diltiazem HCL Active Tablets 120mg 180ta 1 by mouth Santos S. /0000 bs twice a Watson, day, use DO FACC any long acting generic formulation Ipratropium Active Solution 0.5-2.5(3 (Provent Unknown [place]/Albuterol /0000 )mg/3ML )0.5 mg inh Sulfate three times daily prn Magnesium Oxide Active Capsules 400mg 90cap 1 by mouth Santos S. /0000 s once a day DO TYRA Watson Trelegy Ellipta Active Aerosol 100-62.5- 1 puff Unknown /0000 25mcg/Inh daily Advil PM Active Tablets 200-38mg 1 cap po Unknown /0000 @hs Breo Ellipta 04/24 Hx Aerosol 100-25mcg 180un inhale 1 J44.9 Katelyn /2016 /Inh its puff every Maria Del Rosario, - day 12/04 Aspirin Hx Tablets 325mg 1 by mouth Unknown /0000 DR every day - 03/27 Finasteride Hx Tablets 5mg 1 by mouth Unknown /0000 every day - 03/27 Flovent HFA Hx Aerosol 220mcg/Ac inhale one Unknown /0000 t puff by - mouth twice 04/02 a /2016 Foradil Aerolizer Hx Capsules 12mcg 1 cap Unknown /0000 inhalation - every day 03/27 inhale times daily Advil PM Hx Capsules 200mg 2 po qhs Unknown /0000 - 12/02 Spiriva Handihaler Hx Capsules 18mcg place 1 Unknown /0000 capsule - into 03/27 inhaler and inhale daily Hydrochlorothiazid Hx Tablets 25mg 1 by mouth Unknown e /0000 every day - 12/02 Incruse Ellipta Hx Aerosol 62.5mcg/I inhale 1 Unknown /0000 nh puff by - mouth every Serevent Diskus Hx Aerosol 50mcg/Dos 1 puff Unknown /0000 e twice a day - 04/11 Potassium Citrate Hx Tablets 10Meq 1 by mouth Unknown ER /0000 ER (1080 mg) two times a - day 10/03 Prednisone 00 Hx Tablets 10mg Take as Unknown /0000 Directed On - Sheet 18 11/09 day Klor-Con 10 Hx Tablets 10Meq Take 1 Unknown /0000 ER Tablet By - Mouth Every Prednisone Hx Tablets 10mg Take 4 Tabs Unknown /0000 For 1 Day - Then 3 Tabs 04/02 For 3 Days Then 2 Tabs For 3 Days Then 1 Tab For 3 Days (Currently 1 per day 11/25/18) Immunizations CPT Code Status Date Vaccine Lot # [id number] Given 06/11/2016 Influenza Virus 3Yrs & Over Vital Signs Date Vital Result Comment 12/05/2018 2:00pm Height 72 inches 6'0" Weight 276.00 lb with shoes Heart Rate 80 /min BP Systolic Sitting 132 mmHg BP Diastolic Sitting 80 mmHg BP Systolic Standing 130 mmHg BP Diastolic Standing 80 mmHg Respiratory Rate 20 /min BMI (Body Mass Index) 37.4 kg/m2 Ejection Fraction 50-55% 130 11/25/2018 1:36pm Height 72 inches 6'0" Weight [...] kg/m2 Ejection Fraction 55-60 echo 11/27/12 Results Test Date Facility Test Result H/L Range Note Laboratory test 12/05/2018 [facility] Magnesium <pending> finding [address] [place] [address] [phone] Procedures Date Code Description Status 11/17/2018 52308 Treadmill Interp/Report Only Completed 11/17/2018 65345 Stress Test Supervsn W/Out I/R Completed 11/14/2018 69651 ECHO Transthorasic Realtime 2D W Doppler & Color Flow Hosp Completed 04/18/2017 77492 Diffusing Capacity Completed 04/18/2017 46303 Plethysmography Determination Lung Volumes & Per Airway Completed Resist 04/18/2017 00457 Pulmonary Function><Bronchodil Completed 06/10/2015 96541 ECHO Transthoracic, Real-Time 2D With Doppler And Color Completed Flow 06/10/2015 18596 Treadmill Interp/Report Only Completed 06/10/2015 73686 Stress Test Supervsn W/Out I/R Completed 06/07/2015 58705 EKG Tracing & Interpretation Completed 11/27/2012 84959 Color Flow Doppler/Interp & Reprt Completed 11/27/2012 50160 Pulse Wave/Continuous-Interp.RPT Completed 11/27/2012 00904 ECHO Transthorasic Realtime 2D W Doppler & Color Flow Hosp Completed 11/27/2012 63079 EKG, Interpretation Only Completed 09/19/2010 59423 Treadmill Interp/Report Only Completed 09/19/2010 73697 Stress Test Supervsn W/Out I/R Completed Encounters Type Date Location Provider Dx Diagnosis Office Visit 11/29/2018 [facility] Felicia I47.1 Supraventricular 9:59a sky Kiser MD tachycardia Hospitalists E83.42 Hypomagnesemia E87.6 Hypokalemia R42 Dizziness and giddiness Office Visit 11/28/2018 [facility] Shannan Duenas, I47.1 Supraventricular 3:46p Of Yisel Fernandez tachycardia Office Visit 11/28/2018 [facility] Stefany I47.1 Supraventricular 9:58a Asssky sandoval M.D. tachycardia Hospitalists J44.9 Chronic obstructive pulmonary disease, unspecified E11.9 Type 2 diabetes mellitus without complications I10 Essential (primary) hypertension G47.33 Obstructive sleep apnea (adult) (pediatric) R07.9 Chest pain, unspecified Office Visit 11/27/2018 [facility] I47.1 Supraventricular 9:58a sky Kiser M.D. tachycardia Hospitalists E87.2 Acidosis J44.9 Chronic obstructive pulmonary disease, unspecified I10 Essential (primary) hypertension E11.9 Type 2 diabetes mellitus without complications Office Visit 11/25/2018 1:30p [facility] Katelyn J44.9 [facility] MD Maria Del Rosario obstructive Internal Affairs Commander pulmonary disease, unspecified F17.210 Nicotine dependence, cigarettes, uncomplicated R09.02 Hypoxemia Office Visit 11/17/2018 [facility] Minnie A41.9 Sepsis, 8:51a Assocsky NP unspecified Hospitalists organism J18.9 Pneumonia, unspecified organism J44.0 Chronic obstructive pulmon disease w acute lower resp infct E11.9 Type 2 diabetes mellitus without complications I10 Essential (primary) hypertension G47.33 Obstructive sleep apnea (adult) (pediatric) Office Visit 11/16/2018 [facility] Eugenia A41.9 Sepsis, 8:50a Assocsky NP unspecified Hospitalists organism J18.9 Pneumonia, unspecified organism J44.0 Chronic obstructive pulmon disease w acute lower resp infct E11.9 Type 2 diabetes mellitus without complications Office Visit 11/15/2018 8:50a [facility] A41.9 Sepsis, Assoc,sky Hernández M.D. unspecified Hospitalists organism J44.0 Chronic obstructive pulmon disease w acute lower resp infct J18.9 Pneumonia, unspecified organism I47.2 Ventricular tachycardia I10 Essential (primary) hypertension Office Visit 11/14/2018 8:50a [facility] Fanny A41.9 Sepsis, Assoc,sky Hernández M.D. unspecified Hospitalists organism J44.0 Chronic obstructive pulmon disease w acute lower resp infct J18.9 Pneumonia, unspecified organism E11.9 Type 2 diabetes mellitus without complications Office Visit 11/13/2018 8:49a [facility] Fanny A41.9 Sepsis, Assoc,sky Hernández M.D. unspecified Hospitalists organism J44.0 Chronic obstructive pulmon disease w acute lower resp infct J18.9 Pneumonia, unspecified organism E11.9 Type 2 diabetes mellitus without complications Office Visit 11/12/2018 8:48a [facility] A41.9 Sepsis, Assocsky M.D. unspecified Hospitalists organism J44.1 Chronic obstructive pulmonary disease w (acute) exacerbation E11.9 Type 2 diabetes mellitus without complications I10 Essential (primary) hypertension Office Visit 11/10/2018 11:00a [facility]n J44.9 [facility] MD Maria Del Rosario obstructive Internal Affairs Commander pulmonary disease, unspecified G47.33 Obstructive sleep apnea (adult) (pediatric) J98.4 Other disorders of lung E66.09 Other obesity due to excess calories Office Visit 10/25/2018 [facility] Janay J44.1 Chronic 9:09a sky Kiser PA obstructive Hospitalists pulmonary disease w (acute) exacerbation E11.9 Type 2 diabetes mellitus without complications G47.33 Obstructive sleep apnea (adult) (pediatric) [facility] 9:09a sky Kiser PA obstructive Hospitalists pulmonary disease w (acute) exacerbation E87.2 Acidosis J81.1 Chronic pulmonary edema L03.032 Cellulitis of left toe E11.9 Type 2 diabetes mellitus without complications I10 Essential (primary) hypertension Office Visit 10/23/2018 9:09a [facility] Mackenzie J44.1 Chronic Assoc,sky Manning D.O. 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 Office Visit 08/01/2018 [facility] Sera J18.9 Pneumonia, 8:42a Assoc,sky Gerard NP unspecified Hospitalists organism J44.0 Chronic obstructive pulmon disease w acute lower resp infct J96.01 Acute respiratory failure with hypoxia A41.9 Sepsis, unspecified organism E11.9 Type 2 diabetes mellitus without complications R82.71 Bacteriuria I10 Essential (primary) hypertension D64.9 Anemia, unspecified Office Visit 07/31/2018 [facility] Sera J18.9 Pneumonia, 8:41a Assoc,sky Gerard NP unspecified Hospitalists organism J44.0 Chronic obstructive pulmon disease w acute lower resp infct J96.01 Acute respiratory failure with hypoxia A41.9 Sepsis, unspecified organism E11.9 Type 2 diabetes mellitus without complications R82.71 Bacteriuria I10 Essential (primary) hypertension D64.9 Anemia, unspecified Office Visit 07/30/2018 [facility] Sera J18.9 Pneumonia, 8:41a Assoc,sky Gerard NP unspecified Hospitalists organism J44.0 Chronic obstructive pulmon disease w acute lower resp infct J96.01 Acute respiratory failure with hypoxia A41.9 Sepsis, unspecified organism E11.9 Type 2 diabetes mellitus without complications R82.71 Bacteriuria Office Visit 07/29/2018 [facility] Sera A41.9 Sepsis, 8:40a Assoc,sky Gerard, HAND SANDER unspecified Hospitalists organism J44.0 Chronic obstructive pulmon disease w acute lower resp infct E11.9 Type 2 diabetes mellitus without complications J18.9 Pneumonia, unspecified organism I10 Essential (primary) hypertension Office Visit 07/28/2018 [facility] Logan A41.9 Sepsis, 8:40a Assoc,sky Torrez, N.P. unspecified Hospitalists organism E11.9 Type 2 diabetes mellitus without complications J44.0 Chronic obstructive pulmon disease w acute lower resp infct J18.9 Pneumonia, unspecified organism I10 Essential (primary) hypertension G47.33 Obstructive sleep apnea (adult) (pediatric) Office Visit 03/21/2018 10:30a [facility] J44.9 [facility] MD Maria Del Rosario obstructive Internal Affairs Commander pulmonary disease, unspecified G47.33 Obstructive sleep apnea (adult) (pediatric) E66.09 Other obesity due to excess calories Office Visit 11/06/2017 [facility] E11.01 Type 2 diabetes 9:49a Asslori,sky Gonzalez DO mellitus with Hospitalists hyperosmolarity with coma E11.65 Type 2 diabetes mellitus with hyperglycemia J44.9 Chronic obstructive pulmonary disease, unspecified I10 Essential (primary) hypertension Office Visit 11/05/2017 [facility] E11.01 Type 2 diabetes 9:48a sky Kiser DO mellitus with Hospitalists hyperosmolarity with coma E11.65 Type 2 diabetes mellitus with hyperglycemia J44.9 Chronic obstructive pulmonary disease, unspecified Office Visit 11/04/2017 [facility] Jem Rogers, E11.01 Type 2 diabetes 9:47a sky Kiesr MD mellitus with Hospitalists hyperosmolarity with coma E11.65 Type 2 diabetes mellitus with hyperglycemia J44.9 Chronic obstructive pulmonary disease, unspecified I10 Essential (primary) hypertension Office Visit 11/03/2017 [facility] E11.01 Type 2 diabetes 9:46a sky Kiser DO mellitus with Hospitalists hyperosmolarity with coma E11.65 Type 2 diabetes mellitus with hyperglycemia I10 Essential (primary) hypertension J44.9 Chronic obstructive pulmonary disease, unspecified Office Visit 11/02/2017 [facility] E11.01 Type 2 diabetes 9:45a sky Kiser DO mellitus with Hospitalists hyperosmolarity with coma E11.65 Type 2 diabetes mellitus with hyperglycemia I10 Essential (primary) hypertension J44.9 Chronic obstructive pulmonary disease, unspecified [facility] Type 2 diabetes 9:44a sky Kiser M.D. mellitus with Hospitalists hyperosmolarity with coma E11.65 Type 2 diabetes mellitus with hyperglycemia I10 Essential (primary) hypertension J44.9 Chronic obstructive pulmonary disease, unspecified Office Visit 10/31/2017 [facility] Noah E11.01 Type 2 diabetes 9:43a Assoc,pc ANGEL Lau mellitus with Hospitalists hyperosmolarity with coma E11.65 Type 2 diabetes mellitus with hyperglycemia I10 Essential (primary) hypertension J44.9 Chronic obstructive pulmonary disease, unspecified Office Visit 10/03/2017 1:30p [facility] K[facility]n Sterling44.9 [facility] MD veronica Mix Internal Affairs Commander pulmonary disease, unspecified G47.33 Obstructive sleep apnea (adult) (pediatric) R09.02 Hypoxemia E66.01 Morbid (severe) obesity due to excess calories Office Visit 09/29/2017 10:04a [facility] Asher Bello44.1 Chronic Assocsky MD obstructive Hospitalists pulmonary disease w (acute) exacerbation E11.9 Type 2 diabetes mellitus without complications F17.200 Nicotine dependence, unspecified, uncomplicated I10 Essential (primary) hypertension Office Visit 09/28/2017 10:03a [facility] Asher Bello44.1 Chronic Assocsky MD obstructive Hospitalists pulmonary disease w (acute) exacerbation E11.9 Type 2 diabetes mellitus without complications R00.0 Tachycardia, unspecified I10 Essential (primary) hypertension Office Visit 09/27/2017 10:02a [facility] Jordin J44.1 Chronic Assoc,sky Dooley M.D. obstructive Hospitalists pulmonary disease w (acute) exacerbation E11.9 Type 2 diabetes mellitus without complications R00.0 Tachycardia, unspecified I10 Essential (primary) hypertension Office Visit 04/24/2017 3:15p [facility] K[facility]n J44.9 [facility] MD Maria Del Rosario obstructive Internal Affairs Commander pulmonary disease, unspecified G47.33 Obstructive sleep apnea (adult) (pediatric) R09.02 Hypoxemia E66.09 Other obesity due to excess calories Z68.38 Body mass index (BMI) 38.0-38.9, adult F17.210 Nicotine dependence, cigarettes, uncomplicated Office Visit 03/28/2017 11:30a [facility] K[facility]n J44.9 [facility] veronica Mix Internal Affairs Commander pulmonary disease, unspecified G47.33 Obstructive sleep apnea (adult) (pediatric) E66.09 Other obesity due to excess calories Z68.38 Body mass index (BMI) 38.0-38.9, adult F17.210 Nicotine dependence, cigarettes, uncomplicated Office Visit 11/15/2016 1:48p [facility] Jacqueline Mendoza, J44.1 Chronic Assoc,pc N.P. obstructive Hospitalists pulmonary disease w (acute) exacerbation I10 Essential (primary) hypertension N40.0 Benign prostatic hyperplasia without lower urinry tract symp [facility] J[facility].1 Chronic 1:48p Assoc,sky Patel, BONNIE obstructive Hospitalists pulmonary disease w (acute) exacerbation I10 Essential (primary) hypertension N40.0 Benign prostatic hyperplasia without lower urinry tract symp Office Visit 11/13/2016 [facility] J44.1 Chronic 1:48p Assoc,sky Patel, HAND SANDER obstructive Hospitalists pulmonary disease w (acute) exacerbation I10 Essential (primary) hypertension N40.0 Benign prostatic hyperplasia without lower urinry tract symp Office Visit [facility]/12[facility] J44.1 Chronic 1:47p Assoc,sky Patel, HAND SANDER obstructive Hospitalists pulmonary disease w (acute) exacerbation I10 Essential (primary) hypertension N40.0 Benign prostatic hyperplasia without lower urinry tract symp Office Visit 11/11/2016 1:46p [facility] Jacqueline Mendoza, J44.1 Chronic Assoc,pc N.P. obstructive Hospitalists pulmonary disease w (acute) exacerbation I10 Essential (primary) hypertension N40.0 Benign prostatic hyperplasia without lower urinry tract symp Office Visit 06/07/2015 2:30p [facility] Jackson Alarcon5 Syncope and Rebecca Eduardo collapse I10 Essential (primary) hypertension E66.01 Morbid (severe) obesity due to excess calories E11.9 Type 2 diabetes mellitus without complications E78.0 Pure hypercholesterolemia R94.31 Abnormal electrocardiogram [ECG] [EKG] R07.9 Chest pain, unspecified Office Visit 11/27/2012 9:58a [facility] Mackenzie 780.2 Syncope & Assoc,sky Manning D.O. Collapse Hospitalists 278.01 Obesity Morbid 780.53 Hypersomnia W/ Sleep Apnea Unspecified 250.90 Diabetes W/ Unspec Compl Type II Or Unspec Controlled Office Visit 11/26/2012 9:57[facility] Stefany Buchanan, 780.2 Syncope & Assoc,sky Fernandez Collapse Hospitalists 278.01 Obesity Morbid 780.53 Hypersomnia W/ Sleep Apnea Unspecified 250.90 Diabetes W/ Unspec Compl Type II Or Unspec Controlled Office Visit 09/19/2010 10:00a [facility] Jackson Swanson 402.10 Hypertensive Heart Cardiology Rebecca Eduardo Disease Benign W/O Heart Failure 272.0 Hypercholesterolemia Pure 278.01 Obesity Morbid 786.50 Pain Chest Unspec Plan of Treatment Future Appointment(s):01/27/2019 10:45 am - Katelyn Mix MD at [facility]12/05/2018 - Santos Watson DO FACCI47.1 Supraventricular tachycardiaComments:Have non-fasting blood work in about 1 month to recheck your potassium and magnesium levels while not taking hydrochlorothiazide (lowers both) and while starting magnesium.Diltiazem lowers your heart rate and can help prevent arrhythmias.Follow up:1 yearR42 Dizziness and vfkpxalzkW24.89 Other wfhojbytcmpY13.42 WyzllxpmqmqsfuL52.0 Tobacco useE87.6 TeopqczfmleV46 Essential (primary) rvavxmzzpawfY25.2 PalpitationsNew Orders:[facility], Ordered: 12/05/18
--- NOTE | 2018-12-31 05:04 | ED ---
HPI Chest Pain - HPI Summary HPI Summary: A 73 y/o male brought in by [place] ambulance presents to [facility] with a chief complaint of chest pain this morning. He reports that he woke up with chest pain at 01:00 and then his chest pain resolved upon EMS arrival. He was given 4 Aspirin en route. The patient described his pain as a discomfort. He claims that he was sweaty at the time and notes that his feet are swollen, but denies nausea or SOB. He wears O2 at nighttime. He has a Hx of COPD, DM and Atrial fibrillation. One week ago he was put on a Holter monitor due to his HR fluctuating between the 50s and over 200. He reports that he was recently taken off of hydrochlorothiazide. He is a light every day smoker. - History of Current Complaint Hx Obtained From: Patient, EMS Onset/Duration: Started Hours Ago, Resolved Timing: Intermittent - lasting hours Initial Severity: Moderate Current Severity: None Pain Intensity: 0 Pain Scale Used: 0-10 Numeric Chest Pain Location: Diffuse Chest Pain Radiates: No Character: Other: - discomfort Aggravating Factor(s): Nothing Alleviating Factor(s): Nothing Associated Signs and Symptoms: Positive: Swelling, Diaphoresis, Edema. Negative : Shortness of Breath, Nausea - Additional Pertinent History Primary Care Physician: CHICA - Allergy/Home Medications Allergies/Adverse Reactions: Allergies Allergy/AdvReac Type Severity Reaction Status Date / Time amoxicillin Allergy Rash Verified 11/12/18 13:51 oxycodone Allergy Difficulty Verified 11/12/18 13:51 Breathing Sulfa (Sulfonamide Allergy Shakes Verified 11/12/18 13:51 Antibiotics) PMH/Surg Hx/FS Hx/Imm Hx Endocrine/Hematology History: Reports: Hx Diabetes Denies: Hx Anticoagulant Therapy, Hx Blood Disorders, Hx Blood Transfusions, Hx Bone Marrow Disease, Hx Systemic Lupus Erythematosus, Hx Sickle Cell Disease , Hx Thyroid Disease, Hx Anemia, Hx Unexplained Bleeding, Other Endocrine/ Hematological Disorders Cardiovascular History: Reports: Hx Angina, Hx Hypercholesterolemia, Hx Hypertension, Hx Syncope Denies: Hx Aneurysm, Hx Angioplasty, Hx Auto Implanted Cardiovert Defib, Hx Cardiac Arrest, Hx Cardiomegaly, Hx Congenital Heart Disease, Hx Congestive Heart Failure, Hx Coronary Artery Disease, Hx Deep Vein Thrombosis, Hx Embolism , Hx Hypotension, Hx Pacemaker/ICD, Hx Peripheral Vascular Disease, Hx Rheumatic Fever, Hx Valvular Heart Disease, Other Cardiovascular Problems/ Disorders Respiratory History: Reports: Hx Asthma - copd, Hx Chronic Obstructive Pulmonary Disease (COPD), Hx Sleep Apnea - 2L at night w/CPAP Denies: Hx Chronic Bronchitis, Hx Cystic Fibrosis, Hx Lung Cancer, Hx Pleural Effusion, Hx Pneumonia, Hx Pulmonary Edema, Hx Pulmonary Embolism, Hx Seasonal Allergies Comment Only: Other Respiratory Problems/Disorders - copd, o2 2l at night GI History: Denies: Hx Cirrhosis, Hx Crohn's Disease, Hx Diverticulosis, Hx Gall Bladder Disease, Hx Gastroesophageal Reflux Disease, Hx Gastrointestinal Bleed, Hx Hiatal Hernia, Hx Irritable Bowel, Hx Jaundice, Hx Obstructive Bowel, Hx Ileostomy, Hx Pyloric Stenosis, Hx Ulcer, Other GI Disorders History: Reports: Hx Benign Prostatic Hyperplasia, Hx Kidney Stones Denies: Hx Acute Renal Failure, Hx Chronic Renal Failure, Hx Dialysis, Hx Kidney Infection, Other Problems/Disorders Musculoskeletal History: Denies: Hx Arthritis, Hx Back Problems, Hx Bursitis, Hx Congenital Bone Abnormalities, Hx Fibromyalgia, Hx Gout, Hx Orthopedic Injury, Hx Osteoporosis, Hx Scoliosis, Hx Tendonitis, Other Musculoskeletal History Sensory History: Reports: Hx Contacts or Glasses Denies: Hx Cataracts, Hx Eye Injury, Hx Eye Prosthesis, Hx Glaucoma, Hx Legally Blind, Hx Macular Degeneration, Hx Vision Problem, Hx Deafness, Hx Hearing Aid, Hx Hearing Problem, Other Sensory Impairments Opthamlomology History: Reports: Hx Contacts or Glasses Denies: Hx Cataracts, Hx Eye Injury, Hx Eye Prosthesis, Hx Glaucoma, Hx Legally Blind, Hx Macular Degeneration, Hx Vision Problem, Other Sensory Impairments Neurological History: Reports: Other Neuro Impairments/Disorders - passed out a few times after coughing attack Denies: Hx Dementia, Hx Developmental Delay, Hx Headaches, Hx Migraine, Hx Nerve Disease, Hx Seizures, Hx Spinal Cord Injury, Hx Transient Ischemic Attacks (TIA) Psychiatric History: Denies: Hx Anxiety, Hx Attention Deficit Hyperactivity Disorder, Hx Eating Disorder, Hx Depression, Hx Panic Disorder, Hx Post Traumatic Stress Disorder, Hx Inpatient Treatment, Hx Community Mental Health Tx, Hx Schizophrenia, Hx Bipolar Disorder, Hx Suicide Attempt, Hx of Violent Episodes Against Others, Hx Substance Abuse, Other Psychiatric Issues/Disorders - Cancer History Hx Chemotherapy: No Hx Radiation Therapy: No Hx Palliative Cancer Treatment: No - Surgical History Surgery Procedure, Year, and Place: APPY, KIDNEY STONE RETRIEVAL,FISTULA REPAIR Hx Anesthesia Reactions: No Infectious Disease History: Denies: Hx Clostridium Difficile, Hx Hepatitis, Hx Human Immunodeficiency Virus (HIV), Hx of Known/Suspected MRSA, Hx Shingles, Hx Tuberculosis, History Other Infectious Disease, Traveled Outside the [place] in Last 30 Days - Family History Known Family History: Positive: Hypertension Negative: Diabetes - Social History Alcohol Use: Daily Alcohol Amount: pt states "a few shots of april a day" Hx Substance Use: No Substance Use Type: Reports: None Hx Tobacco Use: Yes - former smoker Smoking Status (MU): Light Every Day Tobacco Smoker Type: Cigarettes Amount Used/How Often: 1-2 cigarettes/day Have You Smoked in the Last Year: Yes Review of Systems Positive: Skin Diaphoresis 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 No murmurs. Normal distal pulses in tibial and radial bilaterally. Abdomen: Soft, nontender, normal active bowel sounds present Musculoskeletal: Mild bilateral pitting edema of feet and lower legs worse on right, Strength/ROM Intact Neurological: A&Ox3, awake and alert, mentation is normal, speech is fluent and appropriate Psychiatric: affect is normal, does not appear anxious or depressed Triage Information Reviewed: Yes Vital Signs Reviewed: Yes Diagnostics - Laboratory Result Diagrams: 12/31/18 05:15 12/31/18 05:15 Lab Statement: Any lab studies that have been ordered have been reviewed, and results considered in the medical decision making process. - Radiology CXR Radiology Interpretation Completed By: ED Physician Summary of Radiographic Findings: Increased opacity left base unchanged compared to film of November 12. Pending official imaging report. - EKG 05:05 Cardiac Rate: Other Rate - Atrial fibrillation at 80 bpm EKG Rhythm: Atrial Fibrillation Summary of EKG Findings: Atrial fibrillation at 80 bpm with controlled response , RBBB. Chest Pain Course/Dx - Course Course Of Treatment: A 73 y/o male brought in by [place] ambulance presents to [facility] with a chief complaint of chest pain this morning. He reports that he woke up with chest pain at 01:00 and then his chest pain resolved upon EMS arrival. The physical exam revealed that the patient was obese, had mild expiratory wheezing, mild bilateral pitting edema of feet and lower legs worse on right. EKG at 05:05 showed Atrial fibrillation at 80 bpm with controlled response, RBBB. Blood work and chemistries obtained and are WNL. CXR showed Increased opacity left base unchanged compared to film of November 12. This patient will be discharged home and is agreeable with this plan. 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 Scribe Documentation Reviewed: Yes Provider Attestation: The documentation as recorded by the Aidan nuñez accurately reflects the service I personally performed and the decisions made by me, Marcelo Mullins MD Status of Scribe Document: Viewed
[2018-12-31 05:23] LABS: ABS Basophils 0 10^3/ul (0-0.2); ABS Eosinophils 0.1 10^3/ul (0-0.6); ABS Lymphocytes 1.5 10^3/ul (1.0-4.8); ABS Monocytes 0.6 10^3/ul (0-0.8); ABS Neutrophils 4.2 10^3/ul (1.5-7.7); ABS Nucleated RBC 0 10^3/ul; Eosinophil % 1.5 %; Hematocrit 43 % (36-46); Hemoglobin 14.6 g/dL (14.0-18.0); Lymphocyte % 23.8 %; Mean Corpuscular HGB Conc 34 g/dL (31-36); Mean Corpuscular Hemoglobin 33 pg (27-31); Mean Corpuscular Volume 98 fL (80-94); Mean Platelet Volume 8.3 fL (7.4-10.4); Nucleated Red Blood Cells % 0; Platelet Count 157 10^3/uL (150-450); Red Blood Count 4.38 10^6 /uL (4.18-5.48); Red Cell Distribution Width 15 % (10.5-15); White Blood Count 6.4 10^3/uL (3.5-10.8)
[2018-12-31 05:41] LABS: Albumin 4.2 g/dL (3.2-5.2); Albumin/Globulin Ratio 1.8 (1-3); BUN/Creatinine Ratio 18.6 (8-20); Calcium 8.8 mg/dL (8.6-10.3); EGFR African American 87.1 (>60); Globulin 2.3 g/dL (2-4); Total Bilirubin 0.3 mg/dL (0.2-1.0); Total Protein 6.5 g/dL (6.4-8.9)
--- NOTE | 2018-12-31 08:28 | UC ---
- Progress Note Progress Note: Repeat troponin 0 Updated pt will discharge Course/Dx - Diagnoses Provider Diagnoses: Chest pain Discharge - Sign-Out/Discharge Documenting (check all that apply): Patient Departure, Receiving Sign-Out Receiving patient FROM: Marcelo Mullins Patient Received Moderate/Deep Sedation with Procedure: No - Discharge Plan Condition: Stable Disposition: HOME Patient Education Materials: Noncardiac Chest Pain (ED) Referrals: Lluvia Stevens NP [Primary Care Provider] - 1 Week - Billing Disposition and Condition Condition: STABLE Disposition: Home
[2018-12-31 08:49] VITALS: BP 147/79
--- NOTE | 2018-12-31 12:21 | PN ---
Progress Note - Progress Note Date of Service: 12/31/18 Note: Final radiology CXR read: IMPRESSION: SMALL LEFT PLEURAL EFFUSION. R1F No change in treatment needed at this time. <Roni Olmstead - Last Filed: 12/31/18 12:20> Attestation Statement Provider Attestation: I was available for consult. This patient was seen by the MARIO. The patient was not presented to, seen by, or examined by me. -Perry <Ginna Diaz - Last Filed: 12/31/18 13:12>
== END 2018-12-31 08:48 | disposition home or self-care (01) ==
LOC: ED 04:44
DX: R07.9 Chest pain, unspecified (principal); E11.9 Type 2 diabetes mellitus without complications; F17.210 Nicotine dependence, cigarettes, uncomplicated
CPT/HCPCS: 36415; 71045; 80053; 84484; 85025; 93005; 99283

== ENCOUNTER 2019-01-14 12:23 | Inpatient (IN) | payer MEDICARE ==
--- OUTSIDE RECORDS SUMMARY | 2019-01-14 12:38 | XMS REPORT | Continuity of Care Document ---
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 Onset: 07/28/2018 Chronic obstructive pulmonary disease Logan Torrez, N.P. Onset: 07/28/2018 with acute lower respiratory infection Pneumonia Logan Torrez N.P. Onset: 07/28/2018 Essential hypertension Logan Torrez N.Ernestina Onset: 07/28/2018 Acute respiratory failure with hypoxia Sera Gerard NP Onset: 2017 Bacteriuria Sera Gerard NP Onset: 07/30/2018 Anemia Sera Gerard NP Onset: 07/31/2018 Long-term current use of insulin Bernardino Young MD Onset: 2017 Family History Date Family Member(s) Observation Comments [...] smoker, smokes every day Smoking Status Reviewed: 01/14/19 Patient is a current 2 per day smoker, smokes every day Exercise Type/Frequency Exercises rarely More since quit smoking 2 weeks ago 10/03/17 Allergies, Adverse Reactions, Alerts Active Allergies Reaction Severity Comments Date Hydrocodone Respiratory Distress 04/24/2017 Amoxicillin 03/21/2018 Bactrim 01/14/2019 Inactive Allergies NKDA 06/06/2015 Medications Active Medications SIG Qnty Indications Ordering Date Provider Atenolol 1 by mouth twice a 60tabs Santos S. 01/02/2019 25mg day Watson, DO FACC Tablets Ventolin HFA inhale 2 puffs every Unknown six hours prn 108(90Base) mcg/Act Aerosol Multiple 1 po qd Unknown Vitamin/Minerals Tablets Simvastatin take 1 tablet at Unknown 10mg bedtime Tablets Tamsulosin HCL 1 by mouth every day Unknown 0.4mg Capsules Basaglar Kwikpen Inject 35 Unknown Subcutaneously Every 100Unit/ML Day Solution Pen-Inject Aspirin 81 1 by mouth every day Unknown 81mg Tablets DR Tylenol 8 Hour 1 pill q6h prn Unknown 650mg Tablets ER Ipratropium (Provent )0.5 mg inh Unknown Pitkin/Albuterol three times daily prn Sulfate 0.5-2.5(3)mg/3ML Solution Magnesium Oxide 1 by mouth once a day 90caps Santos S. Watson, DO FACC 400mg Capsules Trelegy Ellipta 1 puff daily 28units Katelyn Maria Del Rosario, 100-62.5-25mcg/Inh Aerosol Advil PM 1 cap po @hs Unknown 200-38mg Tablets Lisinopril 1 by mouth every day Unknown 10mg Tablets Prednisone Lluvia Stevens, 20mg NPC Tablets History Medications Metoprolol Succinate ER 1 by mouth twice 180tabs Santos Donahue 12/08/2018 - 25mg daily Watson, DO 01/02/2019 Tablets ER 24HR FACC Breo Ellipta inhale 1 puff 180units J44.9 Katelyn 04/24/2017 - 100-25mcg/Inh every day MD Maria Del Rosario 12/04/2018 Aerosol Aspirin 1 by mouth every Unknown - 325mg Tablets DR day 03/27/2017 Finasteride 1 by mouth every Unknown - 5mg Tablets day 03/27/2017 Flovent HFA inhale one puff Unknown - 220mcg/Act Aerosol by mouth twice a 04/02/2017 day Foradil Aerolizer 1 cap inhalation Unknown - 12mcg every day inhale 03/27/2017 Capsules 2 times daily Advil PM 2 po qhs Unknown - 200mg Capsules 12/02/[address] 1 capsule Unknown - 18mcg into inhaler and 03/27/2017 Capsules inhale daily Hydrochlorothiazide 1 by mouth every Unknown - 25mg day 12/02/2018 Tablets Incruse Ellipta inhale 1 puff by Unknown - 62.5mcg/Inh mouth every day 12/03/2018 Aerosol Serevent Diskus 1 puff twice a Unknown - 50mcg/Dose day 04/11/2017 Aerosol Potassium Citrate ER 1 by mouth two Unknown - 10Meq times a day 10/03/2017 (1080 mg) Tablets ER Prednisone Take as Directed Unknown - 10mg Tablets On Sheet 18 day 11/09/2018 taper Klor-Con 10 Take 1 Tablet By Unknown - 10Meq Tablets ER Mouth Every Day 12/02/2018 Prednisone Take 4 Tabs For 1 Unknown - 10mg Tablets Day Then 3 Tabs 12/02/2018 For 3 Days Then 2 Tabs For 3 Days Then 1 Tab For 3 Days (Currently 1 per day 11/25/18) Diltiazem HCL 1 by mouth twice 180tabs Santos S. - 120mg Tablets a day, use any Watson, DO 12/08/2018 long acting FACC generic formulation Immunizations CPT Code Status Date Vaccine Lot # [id number] Given 06/11/2016 Influenza Virus 3Yrs & Over Vital Signs Date Vital Result Comment 01/14/2019 11:09am Height 72 inches 6'0" Heart Rate 60 /min BP Systolic Sitting 132 mmHg left upper arm large cuff BP Diastolic Sitting 78 mmHg left upper arm large cuff Respiratory Rate 18 /min O2 % BldC Oximetry 92 % on 4 liters oxygen N/C 12/05/2018 2:00pm Height 72 inches 6'0" Weight [...] Result H/L Range Note Laboratory test 12/05/2018 [facility] Magnesium <pending> finding [address] [place] [address] [phone] Procedures Date Code Description Status 12/05/2018 88119 EKG Tracing & Interpretation Completed 11/28/2018 94084 EKG, Interpretation Only Completed 11/17/2018 96901 Treadmill Interp/Report Only Completed 11/17/2018 53385 Stress Test Supervsn W/Out I/R Completed 11/14/2018 34599 ECHO Transthorasic Realtime 2D W Doppler & Color Flow Hosp Completed 04/18/2017 80129 Diffusing Capacity Completed 04/18/2017 65588 Plethysmography Determination Lung Volumes & Per Airway Completed Resist 04/18/2017 07181 Pulmonary Function><Bronchodil Completed 06/10/2015 60136 Stress Test Supervsn W/Out I/R Completed 06/10/2015 11255 Treadmill Interp/Report Only Completed 06/10/2015 54625 ECHO Transthoracic, Real-Time 2D With Doppler And Color Completed Flow 06/07/2015 56859 EKG Tracing & Interpretation Completed 11/27/2012 96320 Color Flow Doppler/Interp & Reprt Completed 11/27/2012 90688 Pulse Wave/Continuous-Interp.RPT Completed 11/27/2012 42935 ECHO Transthorasic Realtime 2D W Doppler & Color Flow Hosp Completed 11/27/2012 61596 EKG, Interpretation Only Completed 09/19/2010 68994 Treadmill Interp/Report Only Completed 09/19/2010 60896 Stress Test Supervsn W/Out I/R Completed Encounters Type Date Location Provider Dx Diagnosis Office Visit 12/05/2018 [facility] Santos SBaldev I47.1 Supraventricular 2:20p Of [facility] DO Walter [facility] tachycardia R42 Dizziness and giddiness I95.89 Other hypotension E83.42 Hypomagnesemia Z72.0 Tobacco use E87.6 Hypokalemia I10 Essential (primary) hypertension R00.2 Palpitations E11.69 Type 2 diabetes mellitus with other specified complication E78.5 Hyperlipidemia, unspecified Office 11/29/2018 [facility] Felicia I47.1 Supraventricular Visit 9:59a sky Kiser MD tachycardia Hospitalists E83.42 Hypomagnesemia E87.6 Hypokalemia R42 Dizziness and giddiness Office Visit 11/28/2018 [place] Santos S. I47.1 Supraventricular 1:27p Cardiology Of DO Walter tachycardia [facility] FAC J44.9 Chronic obstructive pulmonary disease, unspecified Z72.0 Tobacco use G47.30 Sleep apnea, unspecified E11.9 Type 2 diabetes mellitus without complications I10 Essential (primary) hypertension Office Visit 11/28/2018 [facility] Shannan Duenas I47.1 Supraventricular 3:46p Of Yisel Fernandez tachycardia Office Visit 11/28/2018 [facility] Stefany I47.1 Supraventricular 9:58a sky Kiser M.D. tachycardia Hospitalists J44.9 Chronic obstructive pulmonary disease, unspecified E11.9 Type 2 diabetes mellitus without complications I10 Essential (primary) hypertension G47.33 Obstructive sleep apnea (adult) (pediatric) R07.9 Chest pain, unspecified [facility]ra[facility]ricular 9:58a Asssky sandoval M.D. tachycardia Hospitalists E87.2 Acidosis J44.9 Chronic obstructive pulmonary disease, unspecified I10 Essential (primary) hypertension E11.9 Type 2 diabetes mellitus without complications Office Visit 11/25/2018 1:30p Pulmonology And Katelyn J44.9 Chronic Sleep Services Of MD Maria Del Rosario obstructive Ice Cream Freezer Assistant pulmonary disease, unspecified F17.210 Nicotine dependence, cigarettes, uncomplicated R09.02 Hypoxemia Office Visit 11/17/2018 [facility] Minnie A41.9 Sepsis, 8:51a Assoc,pc BONNIE Felipe unspecified Hospitalists organism J18.9 Pneumonia, unspecified organism J44.0 Chronic obstructive pulmon disease w acute lower resp infct E11.9 Type 2 diabetes mellitus without complications I10 Essential (primary) hypertension G47.33 Obstructive sleep apnea (adult) (pediatric) Office Visit 11/16/2018 [facility] Eugenia A41.9 Sepsis, 8:50a Assoc,pc Juliette, BONNIE unspecified Hospitalists organism J18.9 Pneumonia, unspecified organism J44.0 Chronic obstructive pulmon disease w acute lower resp infct E11.9 Type 2 diabetes mellitus without complications Office Visit 11/15/2018 8:50a [facility] A[facility].9 Sepsis, Assoc,sky Hernández M.D. unspecified Hospitalists organism J44.0 Chronic obstructive pulmon disease w acute lower resp infct J18.9 Pneumonia, unspecified organism I47.2 Ventricular tachycardia I10 Essential (primary) hypertension Office Visit 11/14/2018 8:50a [facility] A41.9 Sepsis, Assoc,sky Hernández M.D. unspecified Hospitalists organism J44.0 Chronic obstructive pulmon disease w acute lower resp infct J18.9 Pneumonia, unspecified organism E11.9 Type 2 diabetes mellitus without complications Office Visit 11/13/2018 8:49a [facility] A41.9 Sepsis, Assoc,sky Hernández M.D. unspecified Hospitalists organism J44.0 Chronic obstructive pulmon disease w acute lower resp infct J18.9 Pneumonia, unspecified organism E11.9 Type 2 diabetes mellitus without complications Office Visit 11/12/2018 8:48a [facility] Fanny A41.9 Sepsis, Assoc,sky Hernández M.D. unspecified Hospitalists organism J44.1 Chronic obstructive pulmonary disease w (acute) exacerbation E11.9 Type 2 diabetes mellitus without complications I10 Essential (primary) hypertension Office Visit 11/10/2018 11:00a Pulmonology And Katelyn J44.9 Chronic Sleep Services Of MD Maria Del Rosario obstructive Ice Cream Freezer Assistant pulmonary disease, unspecified G47.33 Obstructive sleep apnea (adult) (pediatric) J98.4 Other disorders of lung E66.09 Other obesity due to excess calories Office Visit 10/25/2018 [facility] Janay J44.1 Chronic 9:09a Assoc,ANGEL Rivera obstructive Hospitalists pulmonary disease w (acute) exacerbation E11.9 Type 2 diabetes mellitus without complications G47.33 Obstructive sleep apnea (adult) (pediatric) Office Visit 10/24/2018 [facility] Janay J44.1 Chronic 9:09a Assoc,ANGEL Rivera obstructive Hospitalists pulmonary disease w (acute) exacerbation E87.2 Acidosis J81.1 Chronic pulmonary edema L03.032 Cellulitis of left toe E11.9 Type 2 diabetes mellitus without complications I10 Essential (primary) hypertension Office Visit 10/23/2018 9:09a [facility] Mackenzie J44.1 Chronic Assoc,sky Manning D.O. 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 Office Visit 08/01/2018 [facility] Sera J18.9 Pneumonia, 8:42a Assoc,sky Gerard NP unspecified Hospitalists organism J44.0 Chronic obstructive pulmon disease w acute lower resp infct J96.01 Acute respiratory failure with hypoxia A41.9 Sepsis, unspecified organism E11.9 Type 2 diabetes mellitus without complications R82.71 Bacteriuria I10 Essential (primary) hypertension D64.9 Anemia, unspecified Office Visit 07/31/2018 [facility] Sera J18.9 Pneumonia, 8:41a 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,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, 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 Hospitalists organism J44.0 Chronic obstructive pulmon disease w acute lower resp infct J96.01 Acute respiratory failure with hypoxia A41.9 Sepsis, unspecified organism E11.9 Type 2 diabetes mellitus without complications R82.71 Bacteriuria I10 Essential (primary) hypertension D64.9 Anemia, unspecified Office Visit 07/30/2018 [facility] Sera J18.9 Pneumonia, 8:41a 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,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 unspecified Hospitalists organism E11.9 Type 2 diabetes mellitus without complications J44.0 Chronic obstructive pulmon disease w acute lower resp infct J18.9 Pneumonia, unspecified organism I10 Essential (primary) hypertension G47.33 Obstructive sleep apnea (adult) (pediatric) Office Visit 03/21/2018 10:30a Pulmonology And Katelyn J44.9 [facility] Sleep Services Of MD Maria Del Rosario obstructive Ice Cream Freezer Assistant pulmonary disease, unspecified G47.33 Obstructive sleep apnea (adult) (pediatric) E66.09 Other obesity due to excess calories Office Visit 11/06/2017 [facility] Carmen E11.01 Type 2 diabetes 9:49a Assoc,pc Lisa, DO mellitus with Hospitalists hyperosmolarity with coma E11.65 Type 2 diabetes mellitus with hyperglycemia J44.9 Chronic obstructive pulmonary disease, unspecified I10 Essential (primary) hypertension Office Visit 11/05/2017 [facility] E11.01 Type 2 diabetes 9:48a Assoc,sky Gonzalez DO mellitus with Hospitalists hyperosmolarity with coma E11.65 Type 2 diabetes mellitus with hyperglycemia J44.9 Chronic obstructive pulmonary disease, unspecified Office Visit 11/04/2017 [facility] Jemdaniel Ptaed, E11.01 Type 2 diabetes 9:47a Asssky sandoval MD mellitus with Hospitalists hyperosmolarity with coma E11.65 Type 2 diabetes mellitus with hyperglycemia J44.9 Chronic obstructive pulmonary disease, unspecified I10 Essential (primary) hypertension Office Visit 11/03/2017 [facility] E11.01 Type 2 diabetes 9:46a sky Kiser DO mellitus with Hospitalists hyperosmolarity with coma E11.65 Type 2 diabetes mellitus with hyperglycemia I10 Essential (primary) hypertension J44.9 Chronic obstructive pulmonary disease, unspecified Office Visit 11/02/2017 [facility] E11.01 Type 2 diabetes 9:45a sky Kiser DO mellitus with Hospitalists hyperosmolarity with coma E11.65 Type 2 diabetes mellitus with hyperglycemia I10 Essential (primary) hypertension J44.9 Chronic obstructive pulmonary disease, unspecified Office Visit 11/01/2017 [facility] Stefany E11.01 Type 2 diabetes 9:44a Asssky sandoval M.D. mellitus with Hospitalists hyperosmolarity with coma E11.65 Type 2 diabetes mellitus with hyperglycemia I10 Essential (primary) hypertension J44.9 Chronic obstructive pulmonary disease, unspecified Office Visit 10/31/2017 [facility] Noah E11.01 Type 2 diabetes 9:43a Assoc,ANGEL Reynolds mellitus with Hospitalists hyperosmolarity with coma E11.65 Type 2 diabetes mellitus with hyperglycemia I10 Essential (primary) hypertension J44.9 Chronic obstructive pulmonary disease, unspecified Office Visit 10/03/2017 1:30p Pulmonology And Katelyn J44.9 Chronic Sleep Services Of MD Maria Del Rosario obstructive Ice Cream Freezer Assistant pulmonary disease, unspecified G47.33 Obstructive sleep apnea (adult) (pediatric) R09.02 Hypoxemia E66.01 Morbid (severe) obesity due to excess calories Office Visit 09/29/2017 10:04a [facility] Jem Rogers J44.1 Chronic Assoc,sky FERRELL obstructive Hospitalists pulmonary disease w (acute) exacerbation E11.9 Type 2 diabetes mellitus without complications F17.200 Nicotine dependence, unspecified, uncomplicated I10 Essential (primary) hypertension Office Visit 09/28/2017 10:03a [facility] Jem Rogers J44.1 Chronic Assoc,sky FERRELL obstructive Hospitalists pulmonary disease w (acute) exacerbation E11.9 Type 2 diabetes mellitus without complications R00.0 Tachycardia, unspecified I10 Essential (primary) hypertension Office Visit 09/27/2017 10:02a [facility] Jordin J44.1 Chronic Assoc,sky Dooley M.D. obstructive Hospitalists pulmonary disease w (acute) exacerbation E11.9 Type 2 diabetes mellitus without complications R00.0 Tachycardia, unspecified I10 Essential (primary) hypertension Office Visit 04/24/2017 3:15p Pulmonology And Katelyn J44.9 [facility] Sleep Services Of MD Maria Del Rosario obstructive Ice Cream Freezer Assistant pulmonary disease, unspecified G47.33 Obstructive sleep apnea (adult) (pediatric) R09.02 Hypoxemia E66.09 Other obesity due to excess calories Z68.38 Body mass index (BMI) 38.0-38.9, adult F17.210 Nicotine dependence, cigarettes, uncomplicated Office Visit 03/28/2017 11:30a Pulmonology And Katelyn J44.9 [facility] Services Of MD Maria Del Rosario obstructive Ice Cream Freezer Assistant pulmonary disease, unspecified G47.33 Obstructive sleep apnea (adult) (pediatric) E66.09 Other obesity due to excess calories Z68.38 Body mass index (BMI) 38.0-38.9, adult F17.210 Nicotine dependence, cigarettes, uncomplicated Office Visit 11/15/2016 1:48p [facility] Jacqueline Mendoza, J44.1 Chronic Assoc,sky N.P. obstructive Hospitalists pulmonary disease w (acute) exacerbation I10 Essential (primary) hypertension N40.0 Benign prostatic hyperplasia without lower urinry tract symp [facility] 1:48p Assoc,sky Patel NP obstructive Hospitalists pulmonary disease w (acute) exacerbation I10 Essential (primary) hypertension N40.0 Benign prostatic hyperplasia without lower urinry tract symp [facility] Chronic 1:48p Assoc,sky Patel NP obstructive Hospitalists pulmonary disease w (acute) exacerbation I10 Essential (primary) hypertension N40.0 Benign prostatic hyperplasia without lower urinry tract symp Office Visit 11/12/2016 [facility] Mily J44.1 Chronic 1:47p Assoc,pc BONNIE Patel obstructive Hospitalists pulmonary disease w (acute) exacerbation I10 Essential (primary) hypertension N40.0 Benign prostatic hyperplasia without lower urinry tract symp Office Visit 11/11/2016 1:46p [facility] Jacqueline Reji J44.1 Chronic Assoc,pc N.P. obstructive Hospitalists pulmonary disease w (acute) exacerbation I10 Essential (primary) hypertension N40.0 Benign prostatic hyperplasia without lower urinry tract symp Office Visit 06/07/2015 2:30p [facility] Jackson Swanson R55 Syncope and Rebecca Eduardo collapse I10 Essential (primary) hypertension E66.01 Morbid (severe) obesity due to excess calories E11.9 Type 2 diabetes mellitus without complications E78.0 Pure hypercholesterolemia R94.31 Abnormal electrocardiogram [ECG] [EKG] R07.9 Chest pain, unspecified Office Visit 11/27/2012 9:58a [facility] Mackenzie 780.2 Syncope & Assoc,pc Alice Manning Collapse Hospitalists 278.01 Obesity Morbid 780.53 Hypersomnia W/ Sleep Apnea Unspecified 250.90 Diabetes W/ Unspec Compl Type II Or Unspec Controlled Office Visit 11/26/2012 9:57a [facility] Stefany Mckinleyhn, 780.2 Syncope & Assoc,sky Fernanedz Collapse Hospitalists 278.01 Obesity Morbid 780.53 Hypersomnia W/ Sleep Apnea Unspecified 250.90 Diabetes W/ Unspec Compl Type II Or Unspec Controlled Office Visit 09/19/2010 10:00a [facility] Jackson Swanson 402.10 Hypertensive Heart Cardiology Rebecca Eduardo Disease Benign W/O Heart Failure 272.0 Hypercholesterolemia Pure 278.01 Obesity Morbid 786.50 Pain Chest Unspec Plan of Treatment Future Appointment(s):01/27/2019 10:45 am - Katelyn Mix MD at [facility]01/14/2019 - Sera Gerard, BONNIEJ44.1 Chronic obstructive pulmonary disease with (acute) nzhqyoyglE90.210 Nicotine dependence , cigarettes, uncomplicated
[2019-01-14] MEDS ORDERED: Albuterol/Ipratropium NEB.SOL* Albuterol 2.5 MG/Ipratropium 0.5 MG 3 ML INH ONE (12:44)
[2019-01-14] MEDS ORDERED: Dexamethasone IV* 4 MG/ML 5 ML VIAL (20 MG) IVPB ONE (12:44)
--- NOTE | 2019-01-14 12:52 | ED ---
Shortness of Breath - HPI Summary HPI Summary: 73-year-old male with a past medical history of COPD and CHF presents today complaining shortness of breath. 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 He was wearing his oxygen at the time. He does use home oxygen as needed. The pulmonology office sent him to the emergency department for evaluation. He is just completing a course of steroids for COPD exacerbation. He states he has had intermittent chest pain and subjective fevers, as he describes as sweating. He states he has chronic leg swelling which is improved over the past few weeks. He does complain of postnasal drip and occasional sore throat from that. - History of Current Complaint Chief Complaint: EDShortnessOfBreath Time Seen by Provider: 01/14/19 12:33 Hx Obtained From: Patient Onset/Duration: Gradual Onset Timing: Constant Current Severity: Mild Dyspnea At: Exertion Associated Signs & Symptoms: Cough (Productive) Related History: Similar Episode - Allergy/Home Medications Allergies/Adverse Reactions: Allergies Allergy/AdvReac Type Severity Reaction Status Date / Time amoxicillin Allergy Rash Verified 01/14/19 12:31 oxycodone Allergy Difficulty Verified 01/14/19 12:31 Breathing Sulfa (Sulfonamide Allergy Shakes Verified 01/14/19 12:31 Antibiotics) Home Medications: Home Medications Aspirin EC TAB* [Ecotrin EC Low Dose 81 MG*] 81 mg PO DAILY 01/14/19 [History Confirmed 01/14/19] Atenolol TAB* [Tenormin TAB* 25 MG] 25 mg PO BID 01/14/19 [History Confirmed ] Fluticasone/Umeclidin/Vilanter [Trelegy Ellipta 100-62.5-25] 1 puff INH DAILY [History Confirmed 01/14/19] Lisinopril TAB* [Prinivil TAB*] 10 mg PO DAILY 01/14/19 [History Confirmed 01/14] predniSONE TAB* [Deltasone 20 MG TAB*] 20 mg PO DAILY 01/14/19 [History Confirmed 01/14/19] PMH/Surg Hx/FS Hx/Imm Hx Endocrine/Hematology History: Reports: Hx Diabetes Denies: Hx Anticoagulant Therapy, Hx Blood Disorders, Hx Blood Transfusions, Hx Bone Marrow Disease, Hx Systemic Lupus Erythematosus, Hx Sickle Cell Disease , Hx Thyroid Disease, Hx Anemia, Hx Unexplained Bleeding, Other Endocrine/ Hematological Disorders Cardiovascular History: Reports: Hx Angina, Hx Hypercholesterolemia, Hx Hypertension, Hx Syncope Denies: Hx Aneurysm, Hx Angioplasty, Hx Auto Implanted Cardiovert Defib, Hx Cardiac Arrest, Hx Cardiomegaly, Hx Congenital Heart Disease, Hx Congestive Heart Failure, Hx Coronary Artery Disease, Hx Deep Vein Thrombosis, Hx Embolism , Hx Hypotension, Hx Pacemaker/ICD, Hx Peripheral Vascular Disease, Hx Rheumatic Fever, Hx Valvular Heart Disease, Other Cardiovascular Problems/ Disorders Respiratory History: Reports: Hx Asthma - copd, Hx Chronic Obstructive Pulmonary Disease (COPD), Hx Sleep Apnea - 2L at night w/CPAP Denies: Hx Chronic Bronchitis, Hx Cystic Fibrosis, Hx Lung Cancer, Hx Pleural Effusion, Hx Pneumonia, Hx Pulmonary Edema, Hx Pulmonary Embolism, Hx Seasonal Allergies Comment Only: Other Respiratory Problems/Disorders - copd, o2 2l at night GI History: Denies: Hx Cirrhosis, Hx Crohn's Disease, Hx Diverticulosis, Hx Gall Bladder Disease, Hx Gastroesophageal Reflux Disease, Hx Gastrointestinal Bleed, Hx Hiatal Hernia, Hx Irritable Bowel, Hx Jaundice, Hx Obstructive Bowel, Hx Ileostomy, Hx Pyloric Stenosis, Hx Ulcer, Other GI Disorders History: Reports: Hx Benign Prostatic Hyperplasia, Hx Kidney Stones Denies: Hx Acute Renal Failure, Hx Chronic Renal Failure, Hx Dialysis, Hx Kidney Infection, Other Problems/Disorders Musculoskeletal History: Denies: Hx Arthritis, Hx Back Problems, Hx Bursitis, Hx Congenital Bone Abnormalities, Hx Fibromyalgia, Hx Gout, Hx Orthopedic Injury, Hx Osteoporosis, Hx Scoliosis, Hx Tendonitis, Other Musculoskeletal History Sensory History: Reports: Hx Contacts or Glasses Denies: Hx Cataracts, Hx Eye Injury, Hx Eye Prosthesis, Hx Glaucoma, Hx Legally Blind, Hx Macular Degeneration, Hx Vision Problem, Hx Deafness, Hx Hearing Aid, Hx Hearing Problem, Other Sensory Impairments Opthamlomology History: Reports: Hx Contacts or Glasses Denies: Hx Cataracts, Hx Eye Injury, Hx Eye Prosthesis, Hx Glaucoma, Hx Legally Blind, Hx Macular Degeneration, Hx Vision Problem, Other Sensory Impairments Neurological History: Reports: Other Neuro Impairments/Disorders - passed out a few times after coughing attack Denies: Hx Dementia, Hx Developmental Delay, Hx Headaches, Hx Migraine, Hx Nerve Disease, Hx Seizures, Hx Spinal Cord Injury, Hx Transient Ischemic Attacks (TIA) Psychiatric History: Denies: Hx Anxiety, Hx Attention Deficit Hyperactivity Disorder, Hx Eating Disorder, Hx Depression, Hx Panic Disorder, Hx Post Traumatic Stress Disorder, Hx Inpatient Treatment, Hx Community Mental Health Tx, Hx Schizophrenia, Hx Bipolar Disorder, Hx Suicide Attempt, Hx of Violent Episodes Against Others, Hx Substance Abuse, Other Psychiatric Issues/Disorders - Cancer History Hx Chemotherapy: No Hx Radiation Therapy: No Hx Palliative Cancer Treatment: No - Surgical History Surgery Procedure, Year, and Place: APPY, KIDNEY STONE RETRIEVAL,FISTULA REPAIR Hx Anesthesia Reactions: No Infectious Disease History: No Infectious Disease History: Denies: Hx Clostridium Difficile, Hx Hepatitis, Hx Human Immunodeficiency Virus (HIV), Hx of Known/Suspected MRSA, Hx Shingles, Hx Tuberculosis, History Other Infectious Disease, Traveled Outside the [place] in Last 30 Days - Family History Known Family History: Positive: Hypertension Negative: Diabetes - Social History Alcohol Use: Daily Alcohol Amount: pt states "a few shots of april a day" Hx Substance Use: No Substance Use Type: Reports: None Hx Tobacco Use: Yes - former smoker Smoking Status (MU): Former Smoker Type: Cigarettes Amount Used/How Often: 1-2 cigarettes/day Have You Smoked in the Last Year: Yes Review of Systems Positive: Fever, Fatigue. Negative: Chills Eyes: Negative Positive: Sore Throat, Nasal Discharge Positive: Chest Pain Positive: Shortness Of Breath, Cough Negative: Abdominal Pain, Vomiting, Diarrhea, Nausea Positive: no symptoms reported. Negative: dysuria, hematuria, incontinence Negative: Arthralgia, Myalgia, Decreased ROM Negative: Rash Neurological: Negative Positive: Headache, Weakness All Other Systems Reviewed And Are Negative: Yes Physical Exam - Summary Physical Exam Summary: Constitutional: Well-developed, Well-nourished, Alert. (-) Distressed Skin: Warm, Dry HENT: Normocephalic; Atraumatic Eyes: Conjunctiva normal Neck: Musculoskeletal ROM normal neck. (-) JVD, (-) Stridor, (-) Tracheal deviation Cardio: Rhythm regular, rate normal, Heart sounds normal; Intact distal pulses; The pedal pulses are 2+ and symmetric. Radial pulses are 2+ and symmetric. (-) Murmur Pulmonary/Chest wall: Effort normal. (-) Respiratory distress, Bilateral wheezing (-) Rales Abd: Soft, (-) tenderness, (-) Distension, (-) Guarding, (-) Rebound Musculoskeletal: Extremity trace pedal Edema 1+ L, 1-2+ on the right. Lymph: (-) Cervical adenopathy Neuro: Alert, Oriented x3 Psych: Mood and affect Normal Triage Information Reviewed: Yes Vital Signs On Initial Exam: Initial Vitals Temp Pulse Resp BP Pulse Ox 98.3 F 69 20 152/87 93 01/14/19 12:24 01/14/19 12:24 01/14/19 12:24 01/14/19 12:24 01/14/19 12:24 Vital Signs Reviewed: Yes Diagnostics - Vital Signs Vital Signs Temp Pulse Resp BP Pulse Ox 01/14/19 12:24 98.3 F 69 20 152/87 93 - Laboratory Result Diagrams: 01/14/19 13:33 01/14/19 15:21 Lab Statement: Any lab studies that have been ordered have been reviewed, and results considered in the medical decision making process. - Radiology CXR Radiology Interpretation Completed By: Radiologist Summary of Radiographic Findings: CARDIOMEGALY WITH PULMONARY INTERSTITIAL EDEMA. SMALL LEFT PLEURAL EFFUSION. ED physician has reviewed this report. - CT CTA Chest CT Interpretation Completed By: Radiologist Summary of CT Findings: NO PULMONARY ARTERIAL FILLING DEFECT TO SUGGEST PULMONARY EMBOLISM. EMPHYSEMA. ATHEROSCLEROSIS. EVIDENCE OF EXPOSURE TO GRANULOMATOUS DISEASE. ED physician has reviewed this report. - EKG 1247 Cardiac Rate: Bradycardia - 55 BPM EKG Comparison: No Significant Change - 12/31/18 Summary of EKG Findings: Sinus bradycardia at 55 BPM and a RBBB. Course/Dx - Course Course Of Treatment: 73-year-old male with a past medical history of COPD and CHF presents today complaining shortness of breath. The patient had abnormal findings in his blood work of WBC 12.0, MCV 97, MCH 34, Absolute neutraphils 9.9 , BUN 37, BUN/Creatinine ratio 38.5, glucose 170, C-Reactive Protein 20.42, and B-Natriuretic Peptide 198. The patient also received a CXR which found CARDIOMEGALY WITH PULMONARY INTERSTITIAL EDEMA. SMALL LEFT PLEURAL EFFUSION. The patient also received a CTA Chest which shows NO PULMONARY ARTERIAL FILLING DEFECT TO SUGGEST PULMONARY EMBOLISM. EMPHYSEMA. ATHEROSCLEROSIS. EVIDENCE OF EXPOSURE TO GRANULOMATOUS DISEASE. The patient also received the following medications: Albuterol 1 nebulizer, Decadron IV 10 mg, Visipaque 96 ml. The EKG was unchanged from 12/31/18 showing Sinus bradycardia at 55 BPM and a RBBB. The patient was admitted to [facility] [place], [place] per Dr. Hernández. The patient was diagnosed as COPD exacerbation, elevated troponin, and chest pain. - Diagnoses Differential Diagnosis/HQI/PQRI: Positive: CHF, Chest Wall Pain, COPD Exacerbation, [place] Provider Diagnoses: COPD exacerbation, Chest pain, Elevated troponin - Physician Notifications Discussed Care of Patient With: Fanny Hernández Time Discussed With Above Provider: 15:01 Instructed by Provider To: Admit As Inpatient - Critical Care Time Critical Care Time: 30-74 min - 30 Discharge - Sign-Out/Discharge Documenting (check all that apply): Patient Departure - admit All imaging exams completed and their final reports reviewed: Yes Patient Received Moderate/Deep Sedation with Procedure: No - Discharge Plan Condition: Stable Disposition: ADMITTED TO [facility] - Billing Disposition and Condition Condition: STABLE Disposition: Admitted to [facility] - Attestation Statements Document Initiated by Melie: Yes Documenting Scribe: Abiodun Estevez Provider For Whom Kadi is Documenting (Include Credential): Alyssa Chavarria MD Scribe Attestation: IAbiodun, scribed for Alyssa Terry MD on 01/14/19 at 1826. Scribe Documentation Reviewed: Yes Provider Attestation: The documentation as recorded by the scribeAbiodun accurately reflects the service I personally performed and the decisions made by me, Alyssa Terry MD Status of Scribe Document: Viewed
[2019-01-14 13:48] LABS: Hematocrit 44 % (42-52); Hemoglobin 15.4 g/dL (14.0-18.0); Mean Corpuscular HGB Conc 35 g/dL (31-36); Mean Corpuscular Hemoglobin 34 pg (27-31); Mean Corpuscular Volume 97 fL (80-94); Red Blood Count 4.56 10^6 /uL (4.18-5.48); Red Cell Distribution Width 14 % (10.5-15)
[2019-01-14 14:08] LABS: ALT 48 U/L (7-52); Albumin 4.2 g/dL (3.2-5.2); Alkaline Phosphatase 75 U/L (34-104); CO2 Carbon Dioxide 28 mmol/L (22-32); Calcium 8.9 mg/dL (8.6-10.3); Chloride 102 mmol/L (101-111); EGFR African American 91.2 (>60); EGFR Non-African American 75.4 (>60); Sodium 138 mmol/L (135-145)
[2019-01-14 14:19] LABS: Mean Platelet Volume 8.3 fL (7.4-10.4); Platelet Count 202 10^3/uL (150-450)
[2019-01-14 14:20] LABS: ABS Lymphocytes 1.2 10^3/ul (1.0-4.8); ABS Monocytes 0.8 10^3/ul (0-0.8); ABS Neutrophils 9.9 10^3/ul (1.5-7.7); Eosinophil % 0.2 %; Lymphocyte % 9.7 %; Nucleated Red Blood Cells % 0.2
[2019-01-14 14:58] LABS: Anion Gap 8 mmol/L (2-11)
[2019-01-14] MEDS ORDERED: Iodixanol* (CONTRAST) 320 MG/ML 100 ML SDV IV ONE (15:22)
[2019-01-14 16:04] LABS: Albumin 4.1 g/dL (3.2-5.2); Albumin/Globulin Ratio 1.6 (1-3); BUN/Creatinine Ratio 38.5 (8-20); C Reactive Protein 20.42 mg/L (<8.01); Calcium 9.1 mg/dL (8.6-10.3); EGFR African American 93.4 (>60); EGFR Non-African American 77.2 (>60); Globulin 2.5 g/dL (2-4); Potassium 4.4 mmol/L (3.5-5.0); Total Bilirubin 0.5 mg/dL (0.2-1.0); Total Protein 6.6 g/dL (6.4-8.9)
[2019-01-14] MEDS ORDERED: Ipratropium 0.5MG/2.5ML NEB* 0.5 MG/2.5 ML NEB.SOLN INH PRN (16:28)
[2019-01-14] MEDS ORDERED: Albuterol HFA INHALER* 8 gm MDI INH PRN (16:28)
[2019-01-14 16:31] LABS: Troponin I 0.01 ng/mL (<0.04)
[2019-01-14] MEDS: cefTRIAXone(*) 1 GM in NS 0.9% 50 ML* 50 ML IVPB SCH (18:31)
[2019-01-14] MEDS ORDERED: Dextrose 50% Syringe 50 ML* 25 GM/50 ML SYRINGE IV PUSH PRN (18:42)
[2019-01-14] MEDS: Albuterol 2.5 MG/3 ML NEB.SOL* (0.083%) INH PRN (19:42)
[2019-01-14] MEDS: Azithromycin 500 mg/250 ml NS 500 MG/250 ML BAG IVPB SCH (19:48)
[2019-01-14] MEDS: Atorvastatin* 10 MG TAB PO SCH (19:50)
[2019-01-14] MEDS: Tamsulosin CAP* 0.4 MG PO SCH (19:51)
[2019-01-14] MEDS: Atenolol TAB* 25 MG PO SCH (19:51)
--- NOTE | 2019-01-14 20:16 | HP ---
CC: Lluvia Stevnes; Dr. Mix * HISTORY AND PHYSICAL: DATE OF ADMISSION: 01/14/19 PROVIDER: Minnie Felipe NP PRIMARY CARE PROVIDER: Lluvia Stevens NP ATTENDING PHYSICIAN WHILE IN THE HOSPITAL: Dr. Darrion Landrum * (dictated by Minnie Felipe NP) CHIEF COMPLAINT: Shortness of breath. HISTORY OF PRESENT ILLNESS: Mr. 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 The patient was seen for routine visit in the pulmonology office today and walked to the bathroom and back to the room and was found to have an O2 saturation of 82%, so was sent from the office to the emergency room for further evaluation. The patient reports that he has had progressively worsening shortness of breath for the past 10 days. He was started on prednisone last which was 01/08/19 for his increased shortness of breath by his primary care provider. The patient reports approximately 2 days ago, he developed a fever and sweating. He also reports that he has had increased sputum production with green sputum. He reports that he was exposed to his who was recently diagnosed with an upper respiratory tract infection as well. The patient reports that he has also been more O2 dependent at home, normally he does not wear oxygen during the day and only wears it night and over the past 10 days has been requiring oxygen during the day. White in the emergency room, the patient had routine lab work drawn. He was found to have a white count of 12.0 and a CRP of 20.42, and oxygen level on admission was 87%. Due to his hypoxia and increased shortness of breath, we were asked to see and evaluate him for admission. PAST MEDICAL HISTORY: 1. Obesity. 2. COPD. 3. Type 2 diabetes. 4. Hypertension. 5. Hyperlipidemia. 6. BPH. 7. Obstructive sleep apnea, on BiPAP with 2 L at bedtime. 8. Nephrolithiasis. PAST SURGICAL HISTORY: 1. Lithotripsy. 2. Appendectomy. 3. Vasectomy. 4. Perianal fissure and fistula repair. HOME MEDICATIONS: 1. Albuterol nebulizer 2.5 mg inhaled 4 times a day as needed for shortness of breath. 2. Albuterol HFA 2 puffs q.4 hours as needed for shortness of breath. 3. Aspirin 81 mg p.o. daily. 4. Insulin 35 units subcu daily. 5. Multivitamin 1 tablet p.o. daily. 6. Tylenol 25 mg p.o. b.i.d. 7. Tamsulosin 0.4 mg p.o. at bedtime. 8. Simvastatin 10 mg at bedtime. 9. Atrovent 0.5 inhaled 3 times a day as needed. 10. Magnesium oxide 400 mg p.o. daily. 11. Trelegy Ellipta 100/62.5/25 one puff daily. 12. Lisinopril 10 mg p.o. daily. 13. Prednisone 20 mg p.o. daily. ALLERGIES: To AMOXICILLIN, OXYCODONE, and SULFA. FAMILY HISTORY: Father with colon cancer, diabetes, and passed from heart disease in his 70s. Mother with hypertension and passed from a motor vehicle accident. SOCIAL HISTORY: The patient had been a smoker since age of 18, one pack per day. He does report occasional alcohol use. Denies any illicit drug use. Surrogate decision maker in the even he is unable to make his own decisions is his son, Sigifredo, phone number is [phone]. REVIEW OF SYSTEMS: A 11-point review of systems was completed. All pertinent positives are mentioned in the HPI, others were negative. PHYSICAL EXAMINATION GENERAL: Mr. Taylor is 73-year-old male who is alert and oriented, resting on the stretcher in the emergency room. VITAL SIGNS: Blood pressure 144/97, heart rate is 76, respirations are 20, O2 saturation 91%, temperature 97.4. HEENT: Head is atraumatic, normocephalic. Eyes: EOMs are intact. Sclerae anicteric and not pale. Oral mucosa appear to be moist. NECK: Supple. LUNGS: Clear to auscultation bilaterally. No wheezes, rales, or rhonchi. CARDIAC: S1, S2. Regular rate and rhythm. No murmurs, rubs, or gallops. ABDOMEN: Soft, nontender, obese. Bowel sounds are present x4. EXTREMITIES: He does have some mild edema to his bilateral feet. Pedal pulses are +2 bilaterally. He is able to move all 4 extremities. There is no clubbing or cyanosis. NEUROLOGIC: He is awake and alert, oriented x3. Speech is clear. Thought process is intact. There is no gross focal deficits. SKIN: Intact. DIAGNOSTIC STUDIES/LAB DATA: WBCs are 12.0, RBCs 4.56, hemoglobin 15.4, hematocrit was 44, platelet count was 202. Sodium 141, potassium 4.4, chloride 102, carbon dioxide was 32, anion gap of 7, BUN was 37, creatinine 0.96, glucose was 170, calcium 9.1. ASTs were 44, ALTs were 72. Troponin was 0.00 and 0.01. C-reactive protein was 20.42. BNP was 198. He had a chest x-ray, radiologist's impression: Cardiomegaly with pulmonary interstitial edema, small left pleural effusion. He had a CT of the chest which showed no pulmonary arterial filling defect to suggest pulmonary embolism , emphysema, atherosclerosis, evidence of exposure to granulomatous disease. He had an electrocardiogram which showed sinus rhythm at a rate of 58 with PACs. ASSESSMENT AND PLAN: Mr. 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 He will be admitted under observation for: 1. Chronic obstructive pulmonary disease exacerbation. I suspect his shortness of breath is related to chronic obstructive pulmonary disease exacerbation. He does have acute on chronic hypoxic respiratory failure. 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 The patient did receive Decadron 10 mg in the emergency room. I will place him on azithromycin and ceftriaxone, as the patient has had a recent exposure to upper respiratory tract infection. Does report increased sputum production, change in color and fevers. I will start him on prednisone 40 mg p.o. daily starting tomorrow. He will wear his BiPAP at night. I will send a sputum culture. 2. Chest pain. The patient had a 2 second episode of chest pain. The patient reports that he has chronic chest pain on and off. This felt like his typical chest pain. His troponin had been negative at 0.00 and 0.01. I would recommend that the patient continue on his medications for coronary artery disease. He will continue on metoprolol, atenolol 25 mg p.o. b.i.d.. and aspirin 81 mg p.o. daily. His EKG showed no acute changes. 3. Type 2 diabetes. The patient will continue on Lantus 35 units subcu daily and lispro sliding scale and fingersticks a.c. 4. Chronic obstructive pulmonary disease. The patient will continue on his home inhalers. He can have Atrovent nebulizer t.i.d. as needed, albuterol nebulizer q.4 hours as needed for shortness of breath, he can continue his albuterol HFA inhaler 2 puffs q.4 hours as needed for shortness of breath. 5. Hypertension. The patient will continue on lisinopril 10 mg p.o. daily and Tenormin 25 mg p.o. b.i.d. 6. Obstructive sleep apnea. The patient will wear his BiPAP at night and 2 L of oxygen at bedtime. 7. FEN: He can have a consistent carb diet. 8. Code status. He is a full code. 9. DVT prophylaxis: I will place him on heparin subcu. TIME SPENT: Time spent on this admission was approximately 60 minutes, greater than half that time was spent at the bedside reviewing events leading thus far to this hospitalization, performing my physical exam, and reviewing my plan of care. I have discussed this with my attending Dr. Darrion Landrum, she is in agreement with my plan. MINNIE FELIPE, BONNIE [id number]/CPS #: [id number] [facility] HOSPITALBenny
[2019-01-14] MEDS: Heparin VIAL(*) 5000 UNITS/ML VIAL (FIVE THOUSAND) SUBCUT SCH (21:23)
[2019-01-15] MEDS: Heparin VIAL(*) 5000 UNITS/ML VIAL (FIVE THOUSAND) SUBCUT SCH ×3 (05:37→20:34)
[2019-01-15 07:07] LABS: Hematocrit 42 % (42-52); Hemoglobin 14.2 g/dL (14.0-18.0); Mean Corpuscular HGB Conc 34 g/dL (31-36); Mean Corpuscular Hemoglobin 33 pg (27-31); Mean Corpuscular Volume 97 fL (80-94); Mean Platelet Volume 8.3 fL (7.4-10.4); Platelet Count 221 10^3/uL (150-450); Red Blood Count 4.27 10^6 /uL (4.18-5.48); Red Cell Distribution Width 14 % (10.5-15)
[2019-01-15 07:29] LABS: BUN/Creatinine Ratio 30.2 (8-20); Calcium 8.9 mg/dL (8.6-10.3); EGFR African American 93.4 (>60); EGFR Non-African American 77.2 (>60); Potassium 4.3 mmol/L (3.5-5.0)
[2019-01-15 07:43] LABS: ABS Basophils 0.1 10^3/ul (0-0.2); ABS Lymphocytes 0.9 10^3/ul (1.0-4.8); ABS Monocytes 0.6 10^3/ul (0-0.8); ABS Neutrophils 7.4 10^3/ul (1.5-7.7); Lymphocyte % 10.5 %; Nucleated Red Blood Cells % 0.1
[2019-01-15] MEDS: Magnesium Oxide TAB* 400 MG PO SCH (09:31)
[2019-01-15] MEDS: Lisinopril TAB* 10 MG PO SCH (09:31)
[2019-01-15] MEDS: Insulin GLARGINE(*) 1 UNITS UNIT SUBCUT SCH (09:32)
[2019-01-15] MEDS: Aspirin EC TAB* 81 MG TAB.EC PO SCH (09:32)
[2019-01-15] MEDS: Atenolol TAB* 25 MG PO SCH ×2 (09:32→20:34)
[2019-01-15] MEDS: Multivitamins/Minerals TAB PO SCH (09:32)
[2019-01-15] MEDS: predniSONE TAB* 20 MG PO SCH (09:33)
[2019-01-15] MEDS: Insulin LISPRO* 1 UNITS UNIT SUBCUT SCH ×3 (09:33→17:52)
[2019-01-15] MEDS: PTO:FLUTICASONE/UMECLIDIN/VILANTER 1 PUFF MDI INH SCH (09:51)
[2019-01-15] MEDS: Albuterol 2.5 MG/3 ML NEB.SOL* (0.083%) INH PRN ×3 (10:21→19:29)
[2019-01-15 11:47] LABS: Rapid HIV 1 Nonreactive (Nonreactive)
[2019-01-15 13:12] LABS: Hepatitis C Antibody Nonreactive (Nonreactive)
[2019-01-15 13:48] LABS: Hepatitis B Surface Antigen Nonreactive (Nonreactive)
--- NOTE | 2019-01-15 13:51 | PN ---
Subjective Date of Service: 01/15/19 Interval History: VS: 91-96% RA Lab: No longer with leukocytosis Tele: [place], PACs Pt states that he continues to have SOB, wheeze, pleuritic CP in L upper chest that is painful with deep inspiration. He has an a.m. cough, which is his baseline, but denies increase in cough. He was previously on 12 day prednisone taper, which he was on day 10 of at admission. He had recent fever, but denies fever and chills now. He is requiring 2L O2 at rest; at home he uses O2 at bedtime. Pt noted to have 30-day event monitor, due to "heart rate fluxuation. " Objective Active Medications: Albuterol (Ventolin 2.5 Mg/3 Ml Neb.Tory*) 2.5 mg INH [id number] AWAKE PRN Albuterol (Ventolin Hfa Inhaler*) 2 puff INH Q4H PRN Aspirin (Aspirin Ec Tab*) 81 mg PO DAILY DEBORA Atenolol (Tenormin Tab*) 25 mg PO BID DEBORA Atorvastatin Calcium (Lipitor*) 5 mg PO BEDTIME DEBORA Dextrose (D50w Syringe 50 Ml*) 12.5 gm IV PUSH .FOR FS < 60 - SS PRN Heparin Sodium (Porcine) (Heparin Vial(*)) 5,000 units SUBCUT Q8HR DEBORA Azithromycin (Zithromax 500 Mg/250 Ml) 500 mg in 250 mls @ 250 mls/hr IVPB Q24H DEBORA Ceftriaxone Sodium 1 gm/ (Sodium Chloride) 50 mls @ 200 mls/hr IVPB Q24H DEBORA Insulin Glargine (Lantus(*)) 35 units SUBCUT Q24H DEBORA Insulin Human Lispro (Humalog*) 0 units SUBCUT AC DEBORA; Protocol Ipratropium [place] (Atrovent 0.5 Mg Neb.Tory*) 0.5 mg INH TID PRN Lisinopril (Prinivil Tab*) 10 mg PO DAILY DEBORA Magnesium Oxide (Magox 400 Tab*) 400 mg PO DAILY DEBORA Multivitamins/Minerals (Theragran/Minerals Tab*) 1 tab PO DAILY DEBORA Prednisone (Deltasone Tab*) 40 mg PO DAILY DEBORA Tamsulosin HCl (Flomax Cap*) 0.4 mg PO QPM DEBORA Vital Signs: Temp Pulse Resp BP Pulse Ox 97.5 F 61 20 130/58 94 01/15/19 11:26 01/15/19 11:26 01/15/19 11:26 01/15/19 11:26 01/15/19 11:26 Oxygen Devices in Use Now: Nasal Cannula Appearance: Pt is laying in bed with HOB elevated. He appears to be working to breath, but is in no acute or respiratory distress. Eyes: No Scleral Icterus, PERRLA Ears/Nose/Mouth/Throat: NL Teeth, Lips, Gums, Clear Oropharnyx, Mucous Membranes Moist Neck: NL Appearance and Movements; NL JVP, Trachea Midline Respiratory: - - Symmetrical chest expansion; increased effort with use of accessory muscles. Decreased breath sounds b/l with expiratory wheeze throughout b/l lungs. Cardiovascular: NL Sounds; No Murmurs; No JVD, RRR, - - Trace edema Extremities: No Clubbing, Cyanosis Neurological: Alert and Oriented x 3 Result Diagrams: 01/15/19 06:39 01/15/19 06:39 Microbiology and Other Data: Microbiology 01/14/19 13:34 Aerobic Blood Culture - Preliminary Blood Venous No Growth Day 1 Anaerobic Blood Culture - Preliminary No Growth Day 1 01/14/19 13:19 Aerobic Blood Culture - Preliminary Blood Venous No Growth Day 1 Anaerobic Blood Culture - Preliminary No Growth Day 1 Assess/Plan/Problems-Billing Assessment: 73yom with PMHx
[2019-01-15 14:03] LABS: Hepatitis B Surface AB Not Immune (Immune)
[2019-01-15 14:06] LABS: Immunoglobulin A 107 mg/dL (61 - 356); Immunoglobulin G 527 mg/dL (767 - 1590); Immunoglobulin M 67 mg/dL (37 - 286)
[2019-01-15] MEDS: Tamsulosin CAP* 0.4 MG PO SCH (17:52)
[2019-01-15] MEDS: cefTRIAXone(*) 1 GM in NS 0.9% 50 ML* 50 ML IVPB SCH (17:52)
[2019-01-15] MEDS: Azithromycin 500 mg/250 ml NS 500 MG/250 ML BAG IVPB SCH (18:14)
[2019-01-15] MEDS: Atorvastatin* 10 MG TAB PO SCH (20:33)
[2019-01-16] MEDS: Heparin VIAL(*) 5000 UNITS/ML VIAL (FIVE THOUSAND) SUBCUT SCH ×3 (05:50→22:58)
[2019-01-16] MEDS: Insulin LISPRO* 1 UNITS UNIT SUBCUT SCH ×3 (07:40→18:29)
[2019-01-16] MEDS: PTO:FLUTICASONE/UMECLIDIN/VILANTER 1 PUFF MDI INH SCH (07:46)
[2019-01-16] MEDS: Albuterol 2.5 MG/3 ML NEB.SOL* (0.083%) INH PRN ×2 (07:54→21:12)
[2019-01-16] MEDS: Lisinopril TAB* 10 MG PO SCH (10:01)
[2019-01-16] MEDS: predniSONE TAB* 20 MG PO SCH (10:01)
[2019-01-16] MEDS: Atenolol TAB* 25 MG PO SCH ×4 (10:02→20:01)
[2019-01-16] MEDS: Insulin GLARGINE(*) 1 UNITS UNIT SUBCUT SCH (10:02)
[2019-01-16] MEDS: Magnesium Oxide TAB* 400 MG PO SCH (10:02)
[2019-01-16] MEDS: Aspirin EC TAB* 81 MG TAB.EC PO SCH (10:02)
[2019-01-16] MEDS: Multivitamins/Minerals TAB PO SCH (10:02)
[2019-01-16] MEDS ORDERED: Furosemide IV* 10 MG/ML VIAL (40 MG) IV ONE (15:31)
--- NOTE | 2019-01-16 18:21 | PN ---
Subjective Date of Service: 01/16/19 Interval History: Pt still requiring O2 2L and desatting with ambulation. Still feels that he is working to breath. Does report that he had little to no a.m. cough this morning and wheeze has improved with nebulizers. Pt denies CP, abd pain, n/v/d/ c, pain in calves. Objective Active Medications: Albuterol (Ventolin 2.5 Mg/3 Ml Neb.Tory*) 2.5 mg INH [id number] AWAKE PRN Albuterol (Ventolin Hfa Inhaler*) 2 puff INH Q4H PRN Aspirin (Aspirin Ec Tab*) 81 mg PO DAILY [facility] Atenolol (Tenormin Tab*) 25 mg PO BID [facility] Atorvastatin Calcium (Lipitor*) 5 mg PO BEDTIME [facility] Dextrose (D50w Syringe 50 Ml*) 12.5 gm IV PUSH .FOR FS < 60 - SS PRN Heparin Sodium (Porcine) (Heparin Vial(*)) 5,000 units SUBCUT Q8HR [facility] Azithromycin (Zithromax 500 Mg/250 Ml) 500 mg in 250 mls @ 250 mls/hr IVPB Q24H [facility] Ceftriaxone Sodium 1 gm/ (Sodium Chloride) 50 mls @ 200 mls/hr IVPB Q24H [facility] Insulin Glargine (Lantus(*)) 35 units SUBCUT Q24H [facility] Insulin Human Lispro (Humalog*) 0 units SUBCUT AC [facility]; Protocol Ipratropium [place] (Atrovent 0.5 Mg Neb.Tory*) 0.5 mg INH TID PRN Lisinopril (Prinivil Tab*) 10 mg PO DAILY [facility] Magnesium Oxide (Magox 400 Tab*) 400 mg PO DAILY [facility] Multivitamins/Minerals (Theragran/Minerals Tab*) 1 tab PO DAILY [facility] Prednisone (Deltasone Tab*) 40 mg PO DAILY [facility] Tamsulosin HCl (Flomax Cap*) 0.4 mg PO QPM [facility] Vital Signs: Temp Pulse Resp BP Pulse Ox 98.0 F 104 26 142/67 95 01/16/19 16:21 01/16/19 16:21 01/16/19 16:21 01/16/19 16:21 01/16/19 16:21 Oxygen Devices in Use Now: Nasal Cannula Appearance: Pt is sitting up in bed. He appears to have increased work of breathing without respiratory distress. He is cooperative, talkative, and can complete sentences. No acute distress. Eyes: No Scleral Icterus, PERRLA Ears/Nose/Mouth/Throat: NL Teeth, Lips, Gums, Clear Oropharnyx, Mucous Membranes Moist Neck: NL Appearance and Movements; NL JVP, Trachea Midline Respiratory: Symmetrical Chest Expansion and Respiratory Effort, - - LLL wheeze ; breath sounds decreased throughout b/l lung mo Cardiovascular: NL Sounds; No Murmurs; No JVD, RRR, - - Trace LE edema Abdominal: NL Sounds; No Tenderness; No Distention, No Hepatosplenomegaly Neurological: Alert and Oriented x 3 Result Diagrams: 01/15/19 06:39 01/15/19 06:39 Microbiology and Other Data: Microbiology 01/14/19 13:34 Aerobic Blood Culture - Preliminary Blood Venous No Growth Day 1 Anaerobic Blood Culture - Preliminary No Growth Day 1 01/14/19 13:19 Aerobic Blood Culture - Preliminary Blood Venous No Growth Day 1 Anaerobic Blood Culture - Preliminary No Growth Day 1 Assess/Plan/Problems-Billing Assessment: 73yom with PMHx obesity, COPD, DMII, HTN, HLD, BPH, MYRON, nightime O2 who presents with COPD exacerbation. - Patient Problems (1) Shortness of breath Comment: -Some improvement with abx, but still requiring O2 and desat with ambulation -Likely multifactorial: pulmonary edema, ? CAP, COPD exacerbation -Add Lasix 40 today and monitor for improvement (2) CAP (community acquired pneumonia) Comment: -Afebrile, productive cough, leukocytosis may be due to recent steroid use -Some improvement with abx -Continue abx -Wean O2 (3) COPD exacerbation Comment: -Has been on steroid taper previously x10 days with little improvement -Continue Azithromycin x5 days -Will continue steroids for total 5d from admission (4) Diabetes Comment: -Controlled -Continue Lantus and Lispro ss (5) HTN (hypertension) Comment: -Controlled -Continue atenolol, lisinopril (6) DVT prophylaxis Comment: - SQ heparin (7) Full code status Status and Disposition: Inpatient. Discharge when stable.
[2019-01-16] MEDS: Tamsulosin CAP* 0.4 MG PO SCH (18:30)
[2019-01-16] MEDS: cefTRIAXone(*) 1 GM in NS 0.9% 50 ML* 50 ML IVPB SCH (18:31)
[2019-01-16] MEDS: Azithromycin 500 mg/250 ml NS 500 MG/250 ML BAG IVPB SCH (19:53)
[2019-01-16] MEDS: Atorvastatin* 10 MG TAB PO SCH (19:54)
[2019-01-17] MEDS ORDERED: Magnesium Sulfate 1 GM IV* 1 GM/100 ML BAG IV ONE (03:39)
--- NOTE | 2019-01-17 03:41 | PN ---
Progress Note - Progress Note Date of Service: 01/17/19 Note: pt had 12 beats of V.tach when sleeping. BMP, Mg, Echo ordered. cont Telem
[2019-01-17] MEDS: Heparin VIAL(*) 5000 UNITS/ML VIAL (FIVE THOUSAND) SUBCUT SCH ×3 (05:16→22:05)
[2019-01-17 07:29] LABS: BUN/Creatinine Ratio 26.5 (8-20); Calcium 8.9 mg/dL (8.6-10.3); EGFR African American 91.2 (>60); EGFR Non-African American 75.4 (>60); Magnesium 2.7 mg/dL (1.9-2.7); Potassium 3.7 mmol/L (3.5-5.0)
[2019-01-17] MEDS ORDERED: Potassium Chlor TAB* 20 MEQ TAB.ER PO ONE (07:36)
[2019-01-17] MEDS: PTO:FLUTICASONE/UMECLIDIN/VILANTER 1 PUFF MDI INH SCH (07:49)
[2019-01-17] MEDS: Insulin LISPRO* 1 UNITS UNIT SUBCUT SCH ×3 (08:04→17:11)
[2019-01-17] MEDS: Atenolol TAB* 25 MG PO SCH ×2 (08:15→21:55)
[2019-01-17] MEDS: Insulin GLARGINE(*) 1 UNITS UNIT SUBCUT SCH (08:24)
[2019-01-17] MEDS: Lisinopril TAB* 10 MG PO SCH (08:24)
[2019-01-17] MEDS: Magnesium Oxide TAB* 400 MG PO SCH (08:25)
[2019-01-17] MEDS: Multivitamins/Minerals TAB PO SCH (08:25)
[2019-01-17] MEDS: Aspirin EC TAB* 81 MG TAB.EC PO SCH (08:25)
[2019-01-17] MEDS: predniSONE TAB* 20 MG PO SCH (08:25)
[2019-01-17 08:59] LABS: Hematocrit 44 % (42-52); Hemoglobin 14.6 g/dL (14.0-18.0); Mean Corpuscular HGB Conc 33 g/dL (31-36); Mean Corpuscular Hemoglobin 33 pg (27-31); Mean Corpuscular Volume 99 fL (80-94); Red Blood Count 4.49 10^6 /uL (4.18-5.48); Red Cell Distribution Width 15 % (10.5-15)
[2019-01-17 09:47] LABS: White Blood Count 10.3 10^3/uL (3.5-10.8)
[2019-01-17 09:54] LABS: Platelet Count Platelets clumped. 10^3/uL (150-450)
[2019-01-17 09:58] LABS: ABS Neutrophils 7.1 10^3/ul (1.5-7.7)
[2019-01-17] MEDS ORDERED: Albuterol 2.5 MG/3 ML NEB.SOL* (0.083%) INH PRN (11:41)
[2019-01-17] MEDS ORDERED: Albuterol/Ipratropium NEB.SOL* Albuterol 2.5 MG/Ipratropium 0.5 MG 3 ML INH SCH (12:00)
[2019-01-17] MEDS: methylPREDNISolone SOD 40 MG* 1 ML VIAL IV SCH (12:44)
[2019-01-17] MEDS: Albuterol/Ipratropium NEB.SOL* Albuterol 2.5 MG/Ipratropium 0.5 MG 3 ML INH SCH ×2 (13:07→19:32)
[2019-01-17] MEDS ORDERED: Albuterol 2.5 MG/3 ML NEB.SOL* (0.083%) INH SCH (15:00)
[2019-01-17] MEDS: cefTRIAXone(*) 1 GM in NS 0.9% 50 ML* 50 ML IVPB SCH (16:42)
--- NOTE | 2019-01-17 16:58 | PN ---
Subjective Date of Service: 01/17/19 Interval History: Sitting in bed on assessment. Currently on 4L NC. Reports prior to last week he was on room air during the day and supplemental O2 at night with CPAP machine. Continues to have sob with exertion. Reports very slight sob with rest. Denies cp, palpitations, nausea, vomiting, fever, chills. Objective Active Medications: Albuterol (Ventolin Hfa Inhaler*) 2 puff INH Q4H PRN PRN Reason: wheezing Albuterol (Ventolin 2.5 Mg/3 Ml Neb.Tory*) 2.5 mg INH [id number] AWAKE PRN PRN Reason: SOB/WHEEZING Albuterol/Ipratropium (Duoneb (Albuterol 2.5 Mg/Ipratropium 0.5 Mg)) 1 neb INH Q6H [facility] Last Admin: 01/17/19 13:07 Dose: 1 neb Aspirin (Aspirin Ec Tab*) 81 mg PO DAILY [facility] Last Admin: 01/17/19 08:25 Dose: 81 mg Atenolol (Tenormin Tab*) 25 mg PO BID [facility] Last Admin: 01/17/19 08:15 Dose: Not Given Atorvastatin Calcium (Lipitor*) 5 mg PO BEDTIME [facility] Last Admin: 01/16/19 19:54 Dose: 5 mg Dextrose (D50w Syringe 50 Ml*) 12.5 gm IV PUSH .FOR FS < 60 - SS PRN PRN Reason: FS < 60 Heparin Sodium (Porcine) (Heparin Vial(*)) 5,000 units SUBCUT Q8HR [facility] Last Admin: 01/17/19 14:52 Dose: 5,000 units Azithromycin (Zithromax 500 Mg/250 Ml) 500 mg in 250 mls @ 250 mls/hr IVPB Q24H [facility] Last Admin: 01/16/19 19:53 Dose: 250 mls/hr Ceftriaxone Sodium 1 gm/ (Sodium Chloride) 50 mls @ 200 mls/hr IVPB Q24H [facility] Last Admin: 01/17/19 16:42 Dose: 200 mls/hr Insulin Glargine (Lantus(*)) 35 units SUBCUT Q24H [facility] Last Admin: 01/17/19 08:24 Dose: 35 units Insulin Human Lispro (Humalog*) 0 units SUBCUT [facility]; Protocol Last Admin: 01/17/19 12:46 Dose: 2 units Lisinopril (Prinivil Tab*) 10 mg PO DAILY [facility] Last Admin: 01/17/19 08:24 Dose: 10 mg Magnesium Oxide (Magox 400 Tab*) 400 mg PO DAILY [facility] Last Admin: 01/17/19 08:25 Dose: 400 mg Methylprednisolone Sodium Succinate (Solu-Medrol 40 Mg) 40 mg IV Q12H [facility] Last Admin: 01/17/19 12:44 Dose: 40 mg Multivitamins/Minerals (Theragran/Minerals Tab*) 1 tab PO DAILY [facility] Last Admin: 01/17/19 08:25 Dose: 1 tab Tamsulosin HCl (Flomax Cap*) 0.4 mg PO QPM [facility] Last Admin: 01/16/19 18:30 Dose: 0.4 mg Vital Signs - 8 hr 01/17/19 01/17/19 01/17/19 11:03 13:10 15:37 Temperature 97.4 F 96.6 F Pulse Rate 55 57 65 Respiratory 22 18 18 Rate Blood Pressure 114/68 131/63 (mmHg) O2 Sat by Pulse 94 98 95 Oximetry 01/17/19 15:39 Temperature 96.6 F Pulse Rate 65 Respiratory 18 Rate Blood Pressure 131/63 (mmHg) O2 Sat by Pulse 95 Oximetry Oxygen Devices in Use Now: Nasal Cannula Appearance: Comfortable, NAD Eyes: No Scleral Icterus Ears/Nose/Mouth/Throat: Clear Oropharnyx, Mucous Membranes Moist Neck: NL Appearance and Movements; NL JVP Respiratory: Symmetrical Chest Expansion and Respiratory Effort, - - Decreased airflow. No wheezes, crackles, or rhonchi Cardiovascular: NL Sounds; No Murmurs; No JVD, RRR, No Edema Abdominal: NL Sounds; No Tenderness; No Distention Lymphatic: No Cervical Adenopathy Extremities: No Edema Skin: No Rash or Ulcers Neurological: Alert and Oriented x 3 Nutrition: Taking PO's Result Diagrams: 01/17/19 08:19 01/17/19 06:15 Additional Lab and Data: Laboratory Results - last 24 hr 01/16/19 01/17/19 01/17/19 16:51 06:15 07:42 WBC RBC Hgb Hct MCV MCH MCHC RDW Plt Count MPV Neut % (Auto) Lymph % (Auto) [place] % (Auto) Eos % (Auto) Baso % (Auto) Absolute Neuts (auto) Absolute Lymphs (auto) Absolute Monos (auto) Absolute Eos (auto) Absolute Basos (auto) Absolute Nucleated RBC Immature Gran % Neutrophils % Band Neutrophils % Lymphocytes % Monocytes % Metamyelocytes % Myelocytes % Nucleated RBC % Abs Neuts (Manual) Abs Lymphs (Manual) Abs Monocytes (Manual) Normal RBC Morphology Sodium 140 Potassium 3.7 Chloride 99 L Carbon Dioxide 36 H Anion Gap 5 BUN 26 H Creatinine 0.98 Est GFR ( Amer) 91.2 Est GFR (Non-Af Amer) 75.4 BUN/Creatinine Ratio 26.5 H Glucose 115 H POC Glucose (mg/dL) 152 H 88 Calcium 8.9 Magnesium 2.7 01/17/19 01/17/19 08:19 12:22 WBC 10.3 RBC 4.49 Hgb 14.6 Hct 44 MCV 99 H MCH 33 H MCHC 33 RDW 15 Plt Count Platelets clumped. H MPV Not Reportable Neut % (Auto) Not Reportable Lymph % (Auto) Not Reportable [place] % (Auto) Not Reportable Eos % (Auto) Not Reportable Baso % (Auto) Not Reportable Absolute Neuts (auto) Not Reportable Absolute Lymphs (auto) Not Reportable Absolute Monos (auto) Not Reportable Absolute Eos (auto) Not Reportable Absolute Basos (auto) Not Reportable Absolute Nucleated RBC Not Reportable Immature Gran % 9.0 Neutrophils % 60.0 Band Neutrophils % 3.0 Lymphocytes % 25.0 Monocytes % 6.0 Metamyelocytes % 3.0 H Myelocytes % 3.0 H Nucleated RBC % Not Reportable Abs Neuts (Manual) 7.1 Abs Lymphs (Manual) 2.6 Abs Monocytes (Manual) 0.6 Normal RBC Morphology Normal Sodium Potassium Chloride Carbon Dioxide Anion Gap BUN Creatinine Est GFR ( Amer) Est GFR (Non-Af Amer) BUN/Creatinine Ratio Glucose POC Glucose (mg/dL) 143 H Calcium Magnesium Microbiology and Other Data: Microbiology 01/14/19 13:34 Aerobic Blood Culture - Preliminary Blood Venous No Growth Day 3 Anaerobic Blood Culture - Preliminary No Growth Day 3 01/14/19 13:19 Aerobic Blood Culture - Preliminary Blood Venous No Growth Day 3 Anaerobic Blood Culture - Preliminary No Growth Day 3 Assess/Plan/Problems-Billing Assessment: 73yom with PMHx obesity, COPD, DMII, HTN, HLD, BPH, MYRON, nightime O2 who presents with COPD exacerbation. - Patient Problems (1) Shortness of breath Comment: - Likely multifactorial: pulmonary edema, CAP, COPD exacerbation - Significant decrease in airflow, therefore, steriods changed from Prednisone 40 mg PO daily to Solumedrol 40 mg IV BID - Received Lasix 40 yesterday and had significant urinary output per patient. Repeat chest xray today not concerning for pulm edema. LS also no crackles. No additional Lasix ordered today - Cont supplemental O2 - Nebs changed to scheduled while awake (2) CAP (community acquired pneumonia) Comment: - Cont abx (3) COPD exacerbation Comment: - Has been on steroid taper previously x10 days with little improvement - Continue Azithromycin x5 days - Changed steriods to IV given decrease airflow and increased oxygen demand (4) Non-sustained ventricular tachycardia Comment: - Patient had 12 beat run of non- sustained ventricular tachycardia last evening - Awaiting echo - Monitor electrolytes and replace as needed - Has 30 day holter monitor on for Dr Watson outpatient (5) Diabetes Comment: -Controlled -Continue Lantus and Lispro ss (6) HTN (hypertension) Comment: -Controlled -Continue atenolol, lisinopril (7) MYRON (obstructive sleep apnea) Comment: - Continue BiPAP with supplemental O2. (8) DVT prophylaxis Comment: - SQ heparin Status and Disposition: Inpatient. Discharge when stable. Attending: Jem Rogers
[2019-01-17] MEDS: Azithromycin 500 mg/250 ml NS 500 MG/250 ML BAG IVPB SCH (17:11)
[2019-01-17] MEDS: Tamsulosin CAP* 0.4 MG PO SCH (17:14)
[2019-01-17] MEDS: Atorvastatin* 10 MG TAB PO SCH (21:57)
[2019-01-18] MEDS: methylPREDNISolone SOD 40 MG* 1 ML VIAL IV SCH ×2 (01:08→12:42)
[2019-01-18] MEDS: Heparin VIAL(*) 5000 UNITS/ML VIAL (FIVE THOUSAND) SUBCUT SCH ×3 (05:31→22:35)
[2019-01-18] MEDS: Albuterol/Ipratropium NEB.SOL* Albuterol 2.5 MG/Ipratropium 0.5 MG 3 ML INH SCH ×2 (06:38→07:34)
[2019-01-18 07:24] LABS: Hematocrit 45 % (42-52); Hemoglobin 15.2 g/dL (14.0-18.0); Mean Corpuscular HGB Conc 34 g/dL (31-36); Mean Corpuscular Hemoglobin 33 pg (27-31); Mean Corpuscular Volume 97 fL (80-94); Mean Platelet Volume 8.3 fL (7.4-10.4); Platelet Count 207 10^3/uL (150-450); Red Blood Count 4.59 10^6 /uL (4.18-5.48); Red Cell Distribution Width 14 % (10.5-15); White Blood Count 12.4 10^3/uL (3.5-10.8)
[2019-01-18] MEDS: PTO:FLUTICASONE/UMECLIDIN/VILANTER 1 PUFF MDI INH SCH (07:34)
[2019-01-18] MEDS ORDERED: Albuterol/Ipratropium NEB.SOL* Albuterol 2.5 MG/Ipratropium 0.5 MG 3 ML INH PRN (07:45)
[2019-01-18 07:46] LABS: BUN/Creatinine Ratio 23.2 (8-20); Calcium 9.3 mg/dL (8.6-10.3); EGFR African American 90.2 (>60); EGFR Non-African American 74.5 (>60); Magnesium 2.6 mg/dL (1.9-2.7); Potassium 4.6 mmol/L (3.5-5.0)
[2019-01-18 07:54] LABS: ABS Lymphocytes 0.9 10^3/ul (1.0-4.8); ABS Monocytes 0.3 10^3/ul (0-0.8); ABS Neutrophils 11.2 10^3/ul (1.5-7.7); Lymphocyte % 7.2 %
[2019-01-18] MEDS: Magnesium Oxide TAB* 400 MG PO SCH (08:51)
[2019-01-18] MEDS: Insulin LISPRO* 1 UNITS UNIT SUBCUT SCH ×3 (08:52→17:37)
[2019-01-18] MEDS: Insulin GLARGINE(*) 1 UNITS UNIT SUBCUT SCH (08:53)
[2019-01-18] MEDS: Aspirin EC TAB* 81 MG TAB.EC PO SCH (08:54)
[2019-01-18] MEDS: Lisinopril TAB* 10 MG PO SCH (08:54)
[2019-01-18] MEDS: Multivitamins/Minerals TAB PO SCH (08:55)
[2019-01-18] MEDS: Atenolol TAB* 25 MG PO SCH ×3 (08:59→22:32)
--- NOTE | 2019-01-18 13:45 | PN ---
Subjective Date of Service: 01/18/19 Interval History: Sitting on edge of bed. Reports breathing has improved. Patient currently dose not have supplemental oxygen in place, therefore, saturation checked and 85%. NC replaced at 2L. Reports no sob at rest today. Reports improvement in sob with exertion. Continues to have occasional productive cough. Denies cp, palpitations, orthopnea, fever, chills, edema. Objective Active Medications: Albuterol (Ventolin Hfa Inhaler*) 2 puff INH Q4H PRN PRN Reason: wheezing Albuterol (Ventolin 2.5 Mg/3 Ml Neb.Tory*) 2.5 mg INH [id number] AWAKE PRN PRN Reason: SOB/WHEEZING Albuterol/Ipratropium (Duoneb (Albuterol 2.5 Mg/Ipratropium 0.5 Mg)) 1 neb INH Q4H PRN PRN Reason: SOB/WHEEZING Aspirin (Aspirin Ec Tab*) 81 mg PO DAILY [facility] [place] Last Admin: 01/18/19 08:54 Dose: 81 mg Atenolol (Tenormin Tab*) 25 mg PO BID [facility] [place] Last Admin: 01/18/19 08:59 Dose: Not Given Atorvastatin Calcium (Lipitor*) 5 mg PO BEDTIME [facility] [place] Last Admin: 01/17/19 21:57 Dose: 5 mg Dextrose (D50w Syringe 50 Ml*) 12.5 gm IV PUSH .FOR FS < 60 - SS PRN PRN Reason: FS < 60 Heparin Sodium (Porcine) (Heparin Vial(*)) 5,000 units SUBCUT Q8HR [facility] [place] Last Admin: 01/18/19 12:43 Dose: 5,000 units Azithromycin (Zithromax 500 Mg/250 Ml) 500 mg in 250 mls @ 250 mls/hr IVPB Q24H [facility] [place] Last Admin: 01/17/19 17:11 Dose: 250 mls/hr Ceftriaxone Sodium 1 gm/ (Sodium Chloride) 50 mls @ 200 mls/hr IVPB Q24H [facility] [place] Last Admin: 01/17/19 16:42 Dose: 200 mls/hr Insulin Glargine (Lantus(*)) 35 units SUBCUT Q24H [facility] [place] Last Admin: 01/18/19 08:53 Dose: 35 units Insulin Human Lispro (Humalog*) 0 units SUBCUT [facility]; Protocol Last Admin: 01/18/19 12:42 Dose: 3 units Lisinopril (Prinivil Tab*) 10 mg PO DAILY [facility] [place] Last Admin: 01/18/19 08:54 Dose: 10 mg Magnesium Oxide (Magox 400 Tab*) 400 mg PO DAILY [facility] Last Admin: 01/18/19 08:51 Dose: 400 mg Methylprednisolone Sodium Succinate (Solu-Medrol 40 Mg) 40 mg IV Q12H [facility] Last Admin: 01/18/19 12:42 Dose: 40 mg Multivitamins/Minerals (Theragran/Minerals Tab*) 1 tab PO DAILY [facility] Last Admin: 01/18/19 08:55 Dose: 1 tab Tamsulosin HCl (Flomax Cap*) 0.4 mg PO QPM [facility] Last Admin: 01/17/19 17:14 Dose: 0.4 mg Vital Signs - 8 hr 01/18/19 01/18/19 01/18/19 07:33 07:34 08:00 Temperature 97.3 F Pulse Rate 82 53 Respiratory 21 16 16 Rate Blood Pressure 140/58 (mmHg) O2 Sat by Pulse 93 97 Oximetry 01/18/19 01/18/19 08:50 11:18 Temperature 97.0 F Pulse Rate 59 53 Respiratory 20 Rate Blood Pressure 132/58 (mmHg) O2 Sat by Pulse 95 Oximetry Oxygen Devices in Use Now: Nasal Cannula Appearance: Comfortable, NAD Eyes: No Scleral Icterus Ears/Nose/Mouth/Throat: Clear Oropharnyx, Mucous Membranes Moist Neck: NL Appearance and Movements; NL JVP Respiratory: Symmetrical Chest Expansion and Respiratory Effort, - - Continues to have diminished aeration, but much improved from yesterday. No wheezing, rhonchi, or crackles. Cardiovascular: NL Sounds; No Murmurs; No JVD, RRR, No Edema Abdominal: NL Sounds; No Tenderness; No Distention Lymphatic: No Cervical Adenopathy Extremities: No Edema Skin: No Rash or Ulcers Neurological: Alert and Oriented x 3 Nutrition: Taking PO's Result Diagrams: 01/18/19 07:05 01/18/19 07:05 Additional Lab and Data: Laboratory Results - last 24 hr 01/17/19 01/17/19 01/18/19 12:22 16:45 07:05 WBC 12.4 H RBC 4.59 Hgb 15.2 Hct 45 MCV 97 H MCH 33 H MCHC 34 RDW 14 Plt Count 207 MPV 8.3 Neut % (Auto) 90.0 Lymph % (Auto) 7.2 [place] % (Auto) 2.7 Eos % (Auto) 0.0 Baso % (Auto) 0.1 Absolute Neuts (auto) 11.2 H Absolute Lymphs (auto) 0.9 L Absolute Monos (auto) 0.3 Absolute Eos (auto) 0.0 Absolute Basos (auto) 0.0 Absolute Nucleated RBC 0.0 Nucleated RBC % 0.0 Sodium Potassium Chloride Carbon Dioxide Anion Gap BUN Creatinine Est GFR ( Amer) Est GFR (Non-Af Amer) BUN/Creatinine Ratio Glucose POC Glucose (mg/dL) 143 H 168 H Calcium Magnesium 01/18/19 01/18/19 07:05 07:23 WBC RBC Hgb Hct MCV MCH MCHC RDW Plt Count MPV Neut % (Auto) Lymph % (Auto) [place] % (Auto) Eos % (Auto) Baso % (Auto) Absolute Neuts (auto) Absolute Lymphs (auto) Absolute Monos (auto) Absolute Eos (auto) Absolute Basos (auto) Absolute Nucleated RBC Nucleated RBC % Sodium 137 Potassium 4.6 Chloride 98 L Carbon Dioxide 32 Anion Gap 7 BUN 23 Creatinine 0.99 Est GFR ( Amer) 90.2 Est GFR (Non-Af Amer) 74.5 BUN/Creatinine Ratio 23.2 H Glucose 172 H POC Glucose (mg/dL) 152 H Calcium 9.3 Magnesium 2.6 Microbiology and Other Data: Microbiology 01/14/19 13:34 Blood Venous Aerobic Blood Culture - Preliminary No Growth Day 4 01/14/19 13:34 Blood Venous Anaerobic Blood Culture - Preliminary No Growth Day 4 01/14/19 13:19 Blood Venous Aerobic Blood Culture - Preliminary No Growth Day 4 01/14/19 13:19 Blood Venous Anaerobic Blood Culture - Preliminary No Growth Day 4 01/17/19 17:35 Urine Legionella Urinary Antigen - Final Negative Legionella Antigen 01/17/19 17:35 Urine Streptococcus pneumoniae Ag Screen - Final Negative S. pneumo Antigen Assess/Plan/Problems-Billing Assessment: 73yom with PMHx obesity, COPD, DMII, HTN, HLD, BPH, MYRON, nightime O2 who presents with COPD exacerbation. - Patient Problems (1) Shortness of breath Comment: - Likely multifactorial: pulmonary edema, CAP, COPD exacerbation - Steriods changed from Prednisone 40 mg PO daily to Solumedrol 40 mg IV BID yesterday - Improved aeration today. - Received Lasix 40 on 01/16 and had significant urinary output per patient. Repeat chest xray on 01/17 not concerning for pulm edema. LS also no crackles. No additional Lasix ordered - Cont supplemental O2. Requiring less supplemental O2 than 01/16 and 01/17 - Nebs changed to scheduled while awake (2) CAP (community acquired pneumonia) Comment: - Cont abx (3) COPD exacerbation Comment: - Prior to admission was on steroid taper previously x10 days with little improvement - Continue Azithromycin and Rocephin - Yesterday changed steriods to IV given decrease airflow and increased oxygen demand; today improvement in both - Consider transitioning back to oral steriods (4) Non-sustained ventricular tachycardia Comment: - Patient had 12 beat run of non- sustained and symptomatic ventricular tachycardia last evening - Dr Watson will see patient as he knows him well. - Last echo 10/2018. Echo cancelled by Walter - Monitor electrolytes and replace as needed - Has 30 day holter monitor on for Dr Watson outpatient (5) Diabetes Comment: -Controlled -Continue Lantus and Lispro ss (6) HTN (hypertension) Comment: -Controlled -Continue atenolol, lisinopril (7) MYRON (obstructive sleep apnea) Comment: - Continue BiPAP with supplemental O2. (8) DVT prophylaxis Comment: - SQ heparin Status and Disposition: Inpatient. Discharge when stable. Will need knew rx for supplemental O2 as only has it for at night?
--- NOTE | 2019-01-18 16:02 | CONSULT ---
Subjective Date of Service: 01/18/19 Interval History: Admission Date: 01/14/19 Consult date 01/18/2019 Provider: Hospitalist service PCP: BONNIE Tobar Dr. * CHIEF COMPLAINT: Shortness of breath. Reson for consult: PVC's, aberrant SVT HISTORY OF PRESENT ILLNESS: Mr. Taylor is a 73-year-old man known to me with a history as below. He quit smoking since the last time I saw him. He recently completed 1 month event monitor that I had ordered and has to turn it back for analysis soon. He had been doing well on 25 mg of atenolol po bid until he caught an infection from his significant other Leni Astorga at bedside (also a patient I see). He is now admitted with respiratory tract infection COPD exacerbation (cough, dyspnea , chest pain, hypoxia). He has been appropriately treated and is nearing baseline with potential discharge tomorrow. He had one 12 beat aberrant SVT overnight (1:1 RP association) that is known about and previously misdiagnosed as NSVT. He atenolol has been being held because of a pulse deficit from PVC's creating false low Hr readings PAST MEDICAL HISTORY: 1. Obesity. 2. COPD. 3. Type 2 diabetes. 4. Hypertension. 5. Hyperlipidemia. 6. BPH. 7. Obstructive sleep apnea, on BiPAP with 2 L at bedtime. 8. Nephrolithiasis. 9. Aberrant SVT PAST SURGICAL HISTORY: 1. Lithotripsy. 2. Appendectomy. 3. Vasectomy. 4. Perianal fissure and fistula repair. . ALLERGIES: To AMOXICILLIN, OXYCODONE, and SULFA. relative to diltiazem (edema) FAMILY HISTORY: Father with colon cancer, diabetes, and passed from heart disease in his 70s. Mother with hypertension and passed from a motor vehicle accident. SOCIAL HISTORY: The patient had been a smoker since age of 18, one pack per day. He does report occasional alcohol use. Denies any illicit drug use. Surrogate decision maker in the even he is unable to make his own decisions is his son, Sigifredo, phone number is [phone]. 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 Medications Active Medications: Albuterol (Ventolin Hfa Inhaler*) 2 puff INH Q4H PRN PRN Reason: wheezing Albuterol (Ventolin 2.5 Mg/3 Ml Neb.Claudette*) 2.5 mg INH [id number] AWAKE PRN PRN Reason: SOB/WHEEZING Albuterol/Ipratropium (Duoneb (Albuterol 2.5 Mg/Ipratropium 0.5 Mg)) 1 neb INH Q4H PRN PRN Reason: SOB/WHEEZING Aspirin (Aspirin Ec Tab*) 81 mg PO DAILY [facility] Last Admin: 01/18/19 08:54 Dose: 81 mg Atenolol (Tenormin Tab*) 25 mg PO BID [facility] Atorvastatin Calcium (Lipitor*) 5 mg PO BEDTIME [facility] Last Admin: 01/17/19 21:57 Dose: 5 mg Dextrose (D50w Syringe 50 Ml*) 12.5 gm IV PUSH .FOR FS < 60 - SS PRN PRN Reason: FS < 60 Heparin Sodium (Porcine) (Heparin Vial(*)) 5,000 units SUBCUT Q8HR [facility] Last Admin: 01/18/19 12:43 Dose: 5,000 units Azithromycin (Zithromax 500 Mg/250 Ml) 500 mg in 250 mls @ 250 mls/hr IVPB Q24H [facility] Last Admin: 01/17/19 17:11 Dose: 250 mls/hr Ceftriaxone Sodium 1 gm/ (Sodium Chloride) 50 mls @ 200 mls/hr IVPB Q24H [facility] Last Admin: 01/17/19 16:42 Dose: 200 mls/hr Insulin Glargine (Lantus(*)) 35 units SUBCUT Q24H [facility] Last Admin: 01/18/19 08:53 Dose: 35 units Insulin Human Lispro (Humalog*) 0 units SUBCUT AC [facility]; Protocol Last Admin: 01/18/19 12:42 Dose: 3 units Lisinopril (Prinivil Tab*) 10 mg PO DAILY [facility] Last Admin: 01/18/19 08:54 Dose: 10 mg Magnesium Oxide (Magox 400 Tab*) 400 mg PO DAILY [facility] Last Admin: 01/18/19 08:51 Dose: 400 mg Methylprednisolone Sodium Succinate (Solu-Medrol 40 Mg) 40 mg IV Q12H [facility] Last Admin: 01/18/19 12:42 Dose: 40 mg Multivitamins/Minerals (Theragran/Minerals Tab*) 1 tab PO DAILY [facility] Last Admin: 01/18/19 08:55 Dose: 1 tab Tamsulosin HCl (Flomax Cap*) 0.4 mg PO QPM [facility] Last Admin: 01/17/19 17:14 Dose: 0.4 mg Home Medications: Simvastatin TAB(NF) [Zocor 10 MG (NF)] 10 mg PO BEDTIME 11/26/12 [History Confirmed 01/14/19] Albuterol HFA INHALER* [Ventolin HFA Inhaler*] 2 puff INH Q4H PRN 11/11/16 [ History Confirmed 01/14/19] Tamsulosin CAP* [Flomax CAP*] 0.4 mg PO QPM 12/31/16 [History Confirmed 01/14/19 ] Multivitamins/Minerals TAB* [Theragran/minerals TAB*] 1 tab PO DAILY 09/27/17 [ History Confirmed 01/14/19] Insulin Glargine,Hum.rec.anlog [Basaglar Kwikpen U-100] 35 unit SUBCUT DAILY [History Confirmed 01/14/19] Acetaminophen TAB* [Tylenol TAB*] 650 mg PO Q6H PRN tab 11/29/18 [Rx Confirmed 01/14/19] Ipratropium 0.5MG/2.5ML NEB* [Atrovent 0.5 MG NEB.CLAUDETTE*] 0.5 mg INH TID PRN neb.soln 11/29/18 [Rx Confirmed 01/14/19] Magnesium Oxide TAB* [MagOx 400 TAB*] 400 mg PO DAILY #30 tab 11/29/18 [Rx Confirmed 01/14/19] Aspirin EC TAB* [Ecotrin EC Low Dose 81 MG*] 81 mg PO DAILY 01/14/19 [History Confirmed 01/14/19] Atenolol TAB* [Tenormin TAB* 25 MG] 25 mg PO BID 01/14/19 [History Confirmed ] Fluticasone/Umeclidin/Vilanter [Trelegy Ellipta 100-62.5-25] 1 puff INH DAILY [History Confirmed 01/14/19] Lisinopril TAB* [Prinivil TAB 10 MG*] 10 mg PO DAILY 01/14/19 [History Confirmed 01/14/19] Azithromycin TAB* [Zithromax TAB (Z-CARMITA) 250 mg #6 tabs] 250 mg PO DAILY #3 tab 01/16/19 [Rx] ceFUROXime TAB(*) [Ceftin TAB 250 MG(*)] 500 mg PO BID #5 tab 01/16/19 [Rx] predniSONE TAB* [Deltasone 20 MG TAB*] 40 mg PO DAILY #2 tab 01/16/19 [Rx] Review of Systems - Measurements Intake and Output: Intake and Output Last 24 Hours 01/16/19 01/17/19 01/18/19 01/19/19 06:59 06:59 06:59 06:59 Intake Total 691 435 2602 1420 Output Total 550 875 Balance 170 518 923 5802 Weight 279 lb 12.8 oz 275 lb Intake: IV Fluids 60 ns 60 IVPB 200 ceftriaxone 100 magnesium 100 Oral 575 292 0963 1420 Output: Urine 550 875 Other: Estimated Void Large Medium Medium # Bowel Movements 0 0 0 # Voids 4 3 4 - Review of Systems Constitutional Symptoms: Negative: Weight Gain, Weight Loss, Unexplained Falls Dermatology: Negative: Rash, Skin Lesions HEENT: Negative: Change in Hearing, Vertigo Eyes: Negative: Change in Vision, Double Vision Thyroid: Negative: Cold Intolerance, Heat Intolerance, Palpitations, Weight Loss, Weight Gain Pulmonary: Positive: Shortness of Breath, COPD Cardiology: Negative: Swelling of Ankles, Peripheral Vascular Dis, Edema, Faintness, Syncope, Claudication, Paroxysmal Nocturnal Dyspnea, Orthopnea Gastroenterology: Negative: Abdominal Pain, Nausea, Vomiting, Anorexia, Haematemesis, Melena Genital - Urinary: Negative: Dysuria, Hematuria Musculoskeletal: Negative: Joint Pain, Joint Stiffness Endocrinology: Positive: Obesity, Diabetes Negative: Polydipsia, Polyuria Hematologic/Lymphatic: Positive: Use of Antiplatelet Drugs Negative: Use of Anticoagulant Neurology: Negative: Hx of Stroke\TIA, Hx Seizures Psychiatry: Negative: Unusual Anxiety, Suicidal Ideation Allergic/Immunologic: Negative: Hx HIV, Immunocompromise Review of Systems Statement: All other review of systems negative, unless stated above. Objective Vital Signs: Temp Pulse Resp BP Pulse Ox 97.9 F 62 18 138/67 92 01/18/19 15:24 01/18/19 15:24 01/18/19 15:24 01/18/19 15:24 01/18/19 15:24 Oxygen Devices in Use Now: Nasal Cannula Appearance: nad, pleasant, Ears/Nose/Mouth/Throat: Clear Oropharnyx, Mucous Membranes Moist Neck: NL Appearance and Movements; NL JVP, Trachea Midline Respiratory: Symmetrical Chest Expansion and Respiratory Effort, - - decreased air entry throughout, no wheeze or rales Cardiovascular: - - rrr with ectopy, distant Abdominal: - - soft, obese Extremities: No Edema, No Clubbing, Cyanosis Neurological: Alert and Oriented x 3 Laboratory Results: 01/18/19 07:05 01/18/19 07:05 Total Bilirubin 0.50 mg/dL (0.2-1.0) 01/14/19 15:21 AST 23 U/L (13-39) 01/14/19 15:21 ALT 44 U/L (7-52) 01/14/19 15:21 Alkaline Phosphatase 72 U/L (34-104) 01/14/19 15:21 B-Natriuretic Peptide 198 pg/mL (<=100) H 01/14/19 13:34 Total Protein 6.6 g/dL (6.4-8.9) 01/14/19 15:21 Albumin 4.1 g/dL (3.2-5.2) 01/14/19 15:21 Globulin 2.5 g/dL (2-4) 01/14/19 15:21 Albumin/Globulin Ratio 1.6 (1-3) 01/14/19 15:21 01/14/19 01/14/19 01/14/19 13:19 15:21 18:23 Troponin I 0.00 0.01 0.00 01/18/2019: 2.6 Diagnostic Imaging: Telemetry strip from 10/2018: Appeared to be mildly aberrant short RP SVT 160 bpm in setting of K 3.1 and Mg 1.7 while taking hctz. tsh 3.33 ekg 11/27/2018: Artifact, NSR to start with RBBB then ectopic beats and rapid SVT with mild aberrancy compared to baseline Cardiac Testing: Stress Test - (11/17/2018) As per Dr. Watson, small sized, mild intensity inferior/inferoapical defect on stress images that almost entirely corrects ( except very mild residual apical defect) on attenuation correction. No prone imaging to differentiate artifact (suspect is this) vs. true defect. Echocardiogram - (11/14/2018) Moderate LVH, LVEF 50-55%, definity used, technically difficult study ekg 01/14/2019 NSR, RBBB, PAC's, overall rate ~ 60 bpm Exam Date: CTA CHEST IMPRESSION: 1. NO PULMONARY ARTERIAL FILLING DEFECT TO SUGGEST PULMONARY EMBOLISM. 2. EMPHYSEMA. 3. ATHEROSCLEROSIS. 4. EVIDENCE OF EXPOSURE TO GRANULOMATOUS DISEASE. Assessment/Plan 1. Aberrant SVT 2. PAC and PVC's 3. Pulse deficit with non-electrocardiogram HR monitoring - secondary to #2 4. Prior tobacco use 5. COPD 6. HTN 7. DM 8. Dyslipidemia 73 year old man with above co-morbidities admitted with COPD exacerbation Restart atenolol 25 mg po bid (ordered), hold pulse < 50 bpm based on telemetry monitoring only, (see #3 above) Continue aspirin and statin Keep K 4 or greater and Mg 2 or greater. Thank you for allowing me to participate in the cardiovascular care of this patient. Please do not hesitate to contact me with questions or concerns.
[2019-01-18] MEDS: cefTRIAXone(*) 1 GM in NS 0.9% 50 ML* 50 ML IVPB SCH (16:15)
[2019-01-18] MEDS: Tamsulosin CAP* 0.4 MG PO SCH (16:50)
[2019-01-18] MEDS: Azithromycin 500 mg/250 ml NS 500 MG/250 ML BAG IVPB SCH (17:38)
[2019-01-18] MEDS: Atorvastatin* 10 MG TAB PO SCH (22:35)
[2019-01-19] MEDS: Heparin VIAL(*) 5000 UNITS/ML VIAL (FIVE THOUSAND) SUBCUT SCH ×2 (05:56→12:23)
[2019-01-19] MEDS: Atenolol TAB* 25 MG PO SCH (08:04)
[2019-01-19] MEDS: Lisinopril TAB* 10 MG PO SCH (08:04)
[2019-01-19] MEDS: Magnesium Oxide TAB* 400 MG PO SCH (08:04)
[2019-01-19] MEDS: Multivitamins/Minerals TAB PO SCH (08:04)
[2019-01-19] MEDS: Aspirin EC TAB* 81 MG TAB.EC PO SCH (08:04)
[2019-01-19] MEDS: Insulin LISPRO* 1 UNITS UNIT SUBCUT SCH ×2 (08:06→12:24)
[2019-01-19] MEDS: Insulin GLARGINE(*) 1 UNITS UNIT SUBCUT SCH (08:07)
--- NOTE | 2019-01-19 08:25 | PN ---
Subjective Date of Service: 01/19/19 Interval History: f/u aberrant svt feels great, wants to go home no cp, breathing good no lightheadedness inadvertently 50 mg of atenolol yesterday evening instead of 25 mg this AM telemetry SB/SR, ectopy frequent overnight Medications Active Medications: Albuterol (Ventolin Hfa Inhaler*) 2 puff INH Q4H PRN PRN Reason: wheezing Albuterol (Ventolin 2.5 Mg/3 Ml Neb.Tory*) 2.5 mg INH [id number] AWAKE PRN PRN Reason: SOB/WHEEZING Albuterol/Ipratropium (Duoneb (Albuterol 2.5 Mg/Ipratropium 0.5 Mg)) 1 neb INH Q4H PRN PRN Reason: SOB/WHEEZING Aspirin (Aspirin Ec Tab*) 81 mg PO DAILY [facility] Last Admin: 01/19/19 08:04 Dose: 81 mg Atenolol (Tenormin Tab*) 25 mg PO BID [facility] Last Admin: 01/19/19 08:04 Dose: 25 mg Atorvastatin Calcium (Lipitor*) 5 mg PO BEDTIME [facility] Last Admin: 01/18/19 22:35 Dose: 5 mg Dextrose (D50w Syringe 50 Ml*) 12.5 gm IV PUSH .FOR FS < 60 - SS PRN PRN Reason: FS < 60 Heparin Sodium (Porcine) (Heparin Vial(*)) 5,000 units SUBCUT Q8HR [facility] Last Admin: 01/19/19 05:56 Dose: 5,000 units Azithromycin (Zithromax 500 Mg/250 Ml) 500 mg in 250 mls @ 250 mls/hr IVPB Q24H [facility] Last Admin: 01/18/19 17:38 Dose: 250 mls/hr Ceftriaxone Sodium 1 gm/ (Sodium Chloride) 50 mls @ 200 mls/hr IVPB Q24H [facility] Last Admin: 01/18/19 16:15 Dose: 200 mls/hr Insulin Glargine (Lantus(*)) 35 units SUBCUT Q24H [facility] Last Admin: 01/19/19 08:07 Dose: 35 units Insulin Human Lispro (Humalog*) 0 units SUBCUT AC [facility]; Protocol Last Admin: 01/19/19 08:06 Dose: 2 units Lisinopril (Prinivil Tab*) 10 mg PO DAILY [facility] Last Admin: 01/19/19 08:04 Dose: 10 mg Magnesium Oxide (Magox 400 Tab*) 400 mg PO DAILY [facility] Last Admin: 01/19/19 08:04 Dose: 400 mg Methylprednisolone Sodium Succinate (Solu-Medrol 40 Mg) 40 mg IV Q12H [facility] Last Admin: 01/19/19 00:00 Dose: 40 mg Multivitamins/Minerals (Theragran/Minerals Tab*) 1 tab PO DAILY [facility] Last Admin: 01/19/19 08:04 Dose: 1 tab Tamsulosin HCl (Flomax Cap*) 0.4 mg PO QPM [facility] Last Admin: 01/18/19 16:50 Dose: 0.4 mg Objective Vital Signs: Temp Pulse Resp BP Pulse Ox 97.6 F 48 19 131/71 94 01/19/19 06:06 01/19/19 07:00 01/19/19 06:06 01/19/19 06:06 01/19/19 06:06 Oxygen Devices in Use Now: Nasal Cannula Appearance: nad, pleasant, Neck: NL Appearance and Movements; NL JVP Respiratory: Symmetrical Chest Expansion and Respiratory Effort Cardiovascular: RRR, - - with ectopy, distant Abdominal: - - soft, obese Extremities: No Clubbing, Cyanosis, - - minimal edema Neurological: Alert and Oriented x 3 Laboratory Results: 01/18/19 07:05 01/18/19 07:05 Total Bilirubin 0.50 mg/dL (0.2-1.0) 01/14/19 15:21 AST 23 U/L (13-39) 01/14/19 15:21 ALT 44 U/L (7-52) 01/14/19 15:21 Alkaline Phosphatase 72 U/L (34-104) 01/14/19 15:21 B-Natriuretic Peptide 198 pg/mL (<=100) H 01/14/19 13:34 Total Protein 6.6 g/dL (6.4-8.9) 01/14/19 15:21 Albumin 4.1 g/dL (3.2-5.2) 01/14/19 15:21 Globulin 2.5 g/dL (2-4) 01/14/19 15:21 Albumin/Globulin Ratio 1.6 (1-3) 01/14/19 15:21 01/14/19 01/14/19 01/14/19 13:19 15:21 18:23 Troponin I 0.00 0.01 0.00 mg 12/2018 was 2.6 Diagnostic Imaging: Telemetry strip from 10/2018: Appeared to be mildly aberrant short RP SVT 160 bpm in setting of K 3.1 and Mg 1.7 while taking hctz. tsh 3.33 ekg 11/27/2018: Artifact, NSR to start with RBBB then ectopic beats and rapid SVT with mild aberrancy compared to baseline Cardiac Testing: Stress Test - (11/17/2018) As per Dr. Watson, small sized, mild intensity inferior/inferoapical defect on stress images that almost entirely corrects ( except very mild residual apical defect) on attenuation correction. No prone imaging to differentiate artifact (suspect is this) vs. true defect. Echocardiogram - (11/14/2018) Moderate LVH, LVEF 50-55%, definity used, technically difficult study ekg 01/14/2019 NSR, RBBB, PAC's, overall rate ~ 60 bpm Exam Date: CTA CHEST IMPRESSION: 1. NO PULMONARY ARTERIAL FILLING DEFECT TO SUGGEST PULMONARY EMBOLISM. 2. EMPHYSEMA. 3. ATHEROSCLEROSIS. 4. EVIDENCE OF EXPOSURE TO GRANULOMATOUS DISEASE. Assessment/Plan 1. Aberrant SVT 2. PAC and PVC's 3. Pulse deficit with non-electrocardiogram HR monitoring - secondary to #2 4. Prior tobacco use 5. COPD 6. HTN 7. DM 8. Dyslipidemia 73 year old man with above co-morbidities admitted with COPD exacerbation Continue atenolol 25 mg po bid, hold pulse < 50 bpm based on telemetry monitoring only not manual or machine or 02 sats monitor, (see #3 above) Continue aspirin and statin Keep K 4 or greater and Mg 2 or greater. Thank you for allowing me to participate in the cardiovascular care of this patient. Please do not hesitate to contact me with questions or concerns.
[2019-01-19] MEDS: PTO:FLUTICASONE/UMECLIDIN/VILANTER 1 PUFF MDI INH SCH (10:18)
[2019-01-19] MEDS: methylPREDNISolone SOD 40 MG* 1 ML VIAL IV SCH ×2 (12:23)
[2019-01-19 12:52] VITALS: BP 115/62
--- NOTE | 2019-01-19 14:59 | DCNOTE ---
Subjective Date of Service: 01/19/19 Interval History: Patient reports he is feeling "much much better" - Reports he feels ready to go home. Denies SOB/Wheezing. Mild cough, no sputum production - reports overall he has greatly improved. no fevers/chills. Objective Active Medications: Albuterol (Ventolin Hfa Inhaler*) 2 puff INH Q4H PRN PRN Reason: wheezing Albuterol (Ventolin 2.5 Mg/3 Ml Neb.[place]*) 2.5 mg INH RT.[id number] AWAKE PRN PRN Reason: SOB/WHEEZING Albuterol/Ipratropium (Duoneb (Albuterol 2.5 Mg/Ipratropium 0.5 Mg)) 1 neb INH Q4H PRN PRN Reason: SOB/WHEEZING Last Admin: 01/19/19 10:17 Dose: 1 neb Aspirin (Aspirin Ec Tab*) 81 mg PO DAILY [facility] Last Admin: 01/19/19 08:04 Dose: 81 mg Atenolol (Tenormin Tab*) 25 mg PO BID [facility] Last Admin: 01/19/19 08:04 Dose: 25 mg Atorvastatin Calcium (Lipitor*) 5 mg PO BEDTIME [facility] Last Admin: 01/18/19 22:35 Dose: 5 mg Dextrose (D50w Syringe 50 Ml*) 12.5 gm IV PUSH .FOR FS < 60 - SS PRN PRN Reason: FS < 60 Heparin Sodium (Porcine) (Heparin Vial(*)) 5,000 units SUBCUT Q8HR [facility] Last Admin: 01/19/19 12:23 Dose: 5,000 units Azithromycin (Zithromax 500 Mg/250 Ml) 500 mg in 250 mls @ 250 mls/hr IVPB Q24H [facility] Last Admin: 01/18/19 17:38 Dose: 250 mls/hr Ceftriaxone Sodium 1 gm/ (Sodium Chloride) 50 mls @ 200 mls/hr IVPB Q24H [facility] Last Admin: 01/18/19 16:15 Dose: 200 mls/hr Insulin Glargine (Lantus(*)) 35 units SUBCUT Q24H [facility] Last Admin: 01/19/19 08:07 Dose: 35 units Insulin Human Lispro (Humalog*) 0 units SUBCUT [facility]; Protocol Last Admin: 01/19/19 12:24 Dose: 3 units Lisinopril (Prinivil Tab*) 10 mg PO DAILY [facility] Last Admin: 01/19/19 08:04 Dose: 10 mg Magnesium Oxide (Magox 400 Tab*) 400 mg PO DAILY [facility] Last Admin: 01/19/19 08:04 Dose: 400 mg Methylprednisolone Sodium Succinate (Solu-Medrol 40 Mg) 40 mg IV Q12H [facility] Last Admin: 01/19/19 12:23 Dose: 40 mg Multivitamins/Minerals (Theragran/Minerals Tab*) 1 tab PO DAILY [facility] Last Admin: 01/19/19 08:04 Dose: 1 tab Tamsulosin HCl (Flomax Cap*) 0.4 mg PO QPM [facility] Last Admin: 01/18/19 16:50 Dose: 0.4 mg Vital Signs - 8 hr 01/19/19 01/19/19 01/19/19 07:00 08:00 10:19 Pulse Rate 48 56 Respiratory 16 16 Rate Blood Pressure (mmHg) O2 Sat by Pulse 92 Oximetry 01/19/19 11:43 Pulse Rate 50 Respiratory 20 Rate Blood Pressure 115/62 (mmHg) O2 Sat by Pulse 92 Oximetry Oxygen Devices in Use Now: None Appearance: 73 yo male A+Ox3 in NAD Eyes: No Scleral Icterus, PERRLA Ears/Nose/Mouth/Throat: Mucous Membranes Moist Respiratory: Symmetrical Chest Expansion and Respiratory Effort, Clear to Auscultation Cardiovascular: NL Sounds; No Murmurs; No JVD, RRR, No Edema Abdominal: NL Sounds; No Tenderness; No Distention, - - obese Extremities: No Edema, No Clubbing, Cyanosis Neurological: Alert and Oriented x 3, NL Muscle Strength and Tone Lines/Tubes/Other Access: Clean, Dry and Intact Peripheral IV Nutrition: Taking PO's Result Diagrams: 01/18/19 07:05 01/18/19 07:05 Additional Lab and Data: Laboratory Results - last 24 hr 01/17/19 01/17/19 01/18/19 12:22 16:45 07:05 WBC 12.4 H RBC 4.59 Hgb 15.2 Hct 45 MCV 97 H MCH 33 H MCHC 34 RDW 14 Plt Count 207 MPV 8.3 Neut % (Auto) 90.0 Lymph % (Auto) 7.2 [place] % (Auto) 2.7 Eos % (Auto) 0.0 Baso % (Auto) 0.1 Absolute Neuts (auto) 11.2 H Absolute Lymphs (auto) 0.9 L Absolute Monos (auto) 0.3 Absolute Eos (auto) 0.0 Absolute Basos (auto) 0.0 Absolute Nucleated RBC 0.0 Nucleated RBC % 0.0 Sodium Potassium Chloride Carbon Dioxide Anion Gap BUN Creatinine Est GFR ( Amer) Est GFR (Non-Af Amer) BUN/Creatinine Ratio Glucose POC Glucose (mg/dL) 143 H 168 H Calcium Magnesium 01/18/19 01/18/19 07:05 07:23 WBC RBC Hgb Hct MCV MCH MCHC RDW Plt Count MPV Neut % (Auto) Lymph % (Auto) [place] % (Auto) Eos % (Auto) Baso % (Auto) Absolute Neuts (auto) Absolute Lymphs (auto) Absolute Monos (auto) Absolute Eos (auto) Absolute Basos (auto) Absolute Nucleated RBC Nucleated RBC % Sodium 137 Potassium 4.6 Chloride 98 L Carbon Dioxide 32 Anion Gap 7 BUN 23 Creatinine 0.99 Est GFR ( Amer) 90.2 Est GFR (Non-Af Amer) 74.5 BUN/Creatinine Ratio 23.2 H Glucose 172 H POC Glucose (mg/dL) 152 H Calcium 9.3 Magnesium 2.6 Microbiology and Other Data: Microbiology 01/14/19 13:34 Blood Venous Aerobic Blood Culture - Preliminary No Growth Day 4 01/14/19 13:34 Blood Venous Anaerobic Blood Culture - Preliminary No Growth Day 4 01/14/19 13:19 Blood Venous Aerobic Blood Culture - Preliminary No Growth Day 4 01/14/19 13:19 Blood Venous Anaerobic Blood Culture - Preliminary No Growth Day 4 01/17/19 17:35 Urine Legionella Urinary Antigen - Final Negative Legionella Antigen 01/17/19 17:35 Urine Streptococcus pneumoniae Ag Screen - Final Negative S. pneumo Antigen Assess/Plan/Problems-Billing Assessment: 73yom with PMHx obesity, COPD, DMII, HTN, HLD, BPH, MYRON, nightime O2 who presents with COPD exacerbation. - Patient Problems (1) Shortness of breath Comment: - Acute on Chronic Resp failure - now resolved - Likely multifactorial: pulmonary edema, CAP, COPD exacerbation (2) COPD exacerbation Comment: - Resolved - Prior to admission was on steroid taper previously x10 days with little improvement - DC home on oral steriod taper - follow up with Dr. Mix and PCP - Qualifies for oxygen 25/03 (3) CAP (community acquired pneumonia) Comment: - 5 day course of ceftriaxone and azithromyacin completed (4) Diabetes Comment: -Controlled -Continue Lantus and Lispro ss (5) HTN (hypertension) SNOMED Code(s): 21354068 Comment: -Controlled -Continue atenolol, lisinopril (6) MYRON (obstructive sleep apnea) Status: Chronic Comment: - Continue BiPAP with supplemental O2. (7) Full code status (8) DVT prophylaxis Status: Acute Comment: - SQ heparin Status and Disposition: Inpatient. Discharge when stable.
--- NOTE | 2019-01-19 20:59 | DS ---
CC: Lluvia Stevens NP; Dr. Mix * DISCHARGE SUMMARY: DATE OF ADMISSION: 01/14/19 DATE OF DISCHARGE: 01/19/19 PROVIDER: Frank Ruby NP ATTENDING PHYSICIAN: Dr. Young * (report dictated by Frank Ruby NP). PRIMARY CARE PROVIDER: Lluvia Stevens NP BLACKING MACHINE OPERATOR: Dr. Mix. DISCHARGE DIAGNOSES: 1. Acute on chronic respiratory failure secondary to chronic obstructive pulmonary disease exacerbation, pneumonia and pulmonary edema. 2. Aberrant supraventricular tachycardia. 3. Premature ventricular contractions. SECONDARY DIAGNOSES: 1. Obesity. 2. Type 2 diabetes. 3. Hypertension. 4. Hyperlipidemia. 5. Benign prostatic hypertrophy. 6. Obstructive sleep apnea, on BiPAP with 2 L at bedtime. 7. Nephrolithiasis. HISTORY OF PRESENT ILLNESS AND HOSPITAL COURSE: Please see history and physical by Minnie Felipe NP, for full admission details, but in summary, this is a 73-year- old male who presented to the emergency department from the machine sole leveler's office for shortness of breath and hypoxia, found to have an O2 sat of 82%. The patient reported that he had progressively worsening shortness of breath for the past 10 days. He was started on prednisone as an outpatient by the primary care provider. The patient reported he developed a fever and sweating as well as a cough with increased sputum production. In the emergency department, he was found to have a leukocytosis of 12,000 and a CRP of 20 with an O2 sat of 87%. Due to his hypoxia and increased shortness of breath, he was admitted for acute on chronic hypoxic respiratory failure thought to be secondary to COPD exacerbation, possible pneumonia, was also noted to have pulmonary interstitial edema. The patient was very slow to improve. He was initially started on oral prednisone, which was switched to IV Solu-Medrol. He received a 5-day course of both azithromycin and ceftriaxone. His leukocytosis resolved the next day, he remained afebrile throughout hospitalization, he has done well over the weekend and is stable for discharge home today. He does qualify for home oxygen 25/03. This has been set up with the continuous pillowcase cutter. The patient was seen in consultation by production drilling machine operator, Dr. Watson, who follows him as an outpatient. He was consulted for frequent PVCs and aberrant SVT. He had had one 12-beat aberrant SVT overnight with a 1:1 R-P association and per Cardiology is known and was previously misdiagnosed as NSVT. Atenolol had been held because of the pulse deficit from PVCs creating false slow heart rate readings. Recommendation per Cardiology was to restart atenolol, continue aspirin and statin, and keep potassium 4 or greater and magnesium 2 or greater. Today, on evaluation, the patient reports that he feels "much much better" and is ready to go home. His is at the bedside and agrees. The patient looks well and is stable. DIAGNOSTIC TESTS: CTA chest, impression: 1. No pulmonary arterial filling defect to suggest pulmonary embolism. 2. Emphysema. 3. Arthrosclerosis. 4. Evidence of exposure to granulomatous disease. Chest x-ray, 01/17/19, impression: No active cardiopulmonary disease is noted. DISCHARGE MEDICATIONS: 1. Atenolol 25 mg p.o. b.i.d. 2. Lisinopril 10 mg p.o. daily. 3. Fluticasone/umeclidinium/vilanterol 100/62.5/25 one puff INH daily. 4. Magnesium oxide 400 mg p.o. daily. 5. Atrovent nebulized solution 0.5 mg INH t.i.d. p.r.n. 6. Acetaminophen 650 mg p.o. q.6 hours p.r.n. 7. Aspirin 81 mg p.o. daily. 8. Flomax 0.4 mg p.o. q.p.m. 9. Simvastatin 10 mg p.o. daily. 10. Insulin glargine 35 units subcu daily. 11. Multivitamin with minerals 1 tab p.o. daily. 12. Albuterol HFA inhaler 2 puffs INH q.4 hours p.r.n. 13. Prednisone taper 60 mg p.o. daily x2 days, then decrease by 10 mg every 2 days. DISCHARGE PLAN: 1. Follow up with primary care provider, Lluvia Stevens NP, within 1 week. 2. Follow up with Dr. Mix, machine sole leveler, within 1 to 2 weeks. 3. Activity, as tolerated. The patient was encouraged to nebulize 2 to 3 times a day until he sees his primary care provider. 4. The patient was instructed to return to the emergency department if he has any worsening or concerning symptoms. DISCHARGE CONDITION: The patient is stable for discharge to home. TIME SPENT: Approximately 60 minutes was spent on this discharge. FRANK RUBY NP [id number]/[facility] #: [id number] KORINA
== END 2019-01-19 18:00 | disposition home or self-care (01) | DRG 193 ==
LOC: ED 12:23 → OBSVTOIN 16:23 → MED 16:23
PROVIDERS: ADMIT Internal Medicine; ATTEND Student in an Organized Health Care Education/Training Program
DX: J18.9 Pneumonia, unspecified organism (principal); J96.21 Acute and chronic respiratory failure with hypoxia; J44.1 Chronic obstructive pulmonary disease with (acute) exacerbation; J81.1 Chronic pulmonary edema; I47.1 Supraventricular tachycardia; J44.0 Chronic obstructive pulmonary disease with (acute) lower respiratory infection; I49.3 Ventricular premature depolarization; Z99.81 Dependence on supplemental oxygen; E66.9 Obesity, unspecified; E11.9 Type 2 diabetes mellitus without complications; I10 Essential (primary) hypertension; F17.210 Nicotine dependence, cigarettes, uncomplicated; I25.10 Atherosclerotic heart disease of native coronary artery without angina pectoris; E78.5 Hyperlipidemia, unspecified; N40.0 Benign prostatic hyperplasia without lower urinary tract symptoms; N20.0 Calculus of kidney; G47.33 Obstructive sleep apnea (adult) (pediatric); Z68.37 Body mass index [BMI] 37.0-37.9, adult; Z79.1 Long term (current) use of non-steroidal anti-inflammatories (NSAID); Z79.82 Long term (current) use of aspirin; Z79.4 Long term (current) use of insulin; Z79.51 Long term (current) use of inhaled steroids; Z79.52 Long term (current) use of systemic steroids; Z79.899 Other long term (current) drug therapy; Z88.1 Allergy status to other antibiotic agents; Z88.5 Allergy status to narcotic agent; Z88.2 Allergy status to sulfonamides; Z80.0 Family history of malignant neoplasm of digestive organs; Z83.3 Family history of diabetes mellitus; Z82.49 Family history of ischemic heart disease and other diseases of the circulatory system
CPT/HCPCS: 36415; 71045; 71275; 80048; 80053; 82784; 83605; 83735; 83880; 84484; 85025; 86140; 86703; 86706; 86803; 87040; 87340; 87899; 93005; 94640; 99283; A9270-GY; J0456; J0696; J1100; J1644; J1940; J2920; J3475; J7512; Q9967

== ENCOUNTER 2019-05-14 13:23 | Inpatient (IN) | payer MEDICARE ==
[2019-05-14] MEDS ORDERED: Albuterol/Ipratropium NEB.SOL* Albuterol 2.5 MG/Ipratropium 0.5 MG 3 ML INH ONE (13:27)
[2019-05-14] MEDS ORDERED: methylPREDNISolone 125 MG* 2 ML VIAL IV ONE (13:27)
--- NOTE | 2019-05-14 13:32 | ED ---
Shortness of Breath - HPI Summary HPI Summary: 73 year old M brought in by EMS to [facility] with a chief complaint of sudden shortness of breath since hours ago while sitting. Patient denies pain. The patient rates the pain 0/10 in severity. Symptoms aggravated by nothing. Symptoms alleviated by nothing. This morning, patient woke up feeling fine, and suddenly felt short of breath. Upon EMS arrival to scene, patient was shivering , couldn't get warm, and couldnt breathe per EMS. Per EMS, patient had absent breath sounds on the left. Patient was hypoxic and cyanotic above the collarbones per EMS en route to ED. EMS gave patient 2 breathing treatments and put patient on CPAP per EMS. Patient has hx diabetes, hypertension, and COPD. Patient states that his symptoms feel like his COPD. Patient denies hx blood clots. Medications reviewed. Allergies noted. - History of Current Complaint Hx Obtained From: Patient, EMS Onset/Duration: Lasting Hours, Still Present Timing: Constant Current Severity: None Aggravating Factors: Nothing Alleviating Factors: Nothing Associated Signs & Symptoms: Chills - Allergy/Home Medications Allergies/Adverse Reactions: Allergies Allergy/AdvReac Type Severity Reaction Status Date / Time amoxicillin Allergy Rash Verified 05/14/19 13:27 hydrochlorothiazide Allergy Unknown Verified 05/14/19 13:27 Reaction Details oxycodone Allergy Difficulty Verified 05/14/19 13:27 Breathing Sulfa (Sulfonamide Allergy Shakes Verified 05/14/19 13:27 Antibiotics) Home Medications: Home Medications Albuterol Sulfate 2.5 mg INH QID PRN 05/14/19 [History Confirmed 05/14/19] Fluticasone/Vilanterol MDI(NF) [Breo Ellipta MDI (NF)] 1 puff INH DAILY [History Confirmed 05/14/19] Hydrochlorothiazide TAB* [Hydrodiuril TAB*] 25 mg PO DAILY 05/14/19 [History Confirmed 05/14/19] Umeclidinium [place]ro [Incruse Ellipta] 62.5 mcg INH DAILY 05/14/19 [History Confirmed 05/14/19] PMH/Surg Hx/FS Hx/Imm Hx Endocrine/Hematology History: Reports: Hx Diabetes Denies: Hx Anticoagulant Therapy, Hx Blood Disorders, Hx Blood Transfusions, Hx Bone Marrow Disease, Hx Systemic Lupus Erythematosus, Hx Sickle Cell Disease , Hx Thyroid Disease, Hx Anemia, Hx Unexplained Bleeding, Other Endocrine/ Hematological Disorders Cardiovascular History: Reports: Hx Angina, Hx Hypercholesterolemia, Hx Hypertension, Hx Syncope Denies: Hx Aneurysm, Hx Angioplasty, Hx Auto Implanted Cardiovert Defib, Hx Cardiac Arrest, Hx Cardiomegaly, Hx Congenital Heart Disease, Hx Congestive Heart Failure, Hx Coronary Artery Disease, Hx Deep Vein Thrombosis, Hx Embolism , Hx Hypotension, Hx Pacemaker/ICD, Hx Peripheral Vascular Disease, Hx Rheumatic Fever, Hx Valvular Heart Disease, Other Cardiovascular Problems/ Disorders Respiratory History: Reports: Hx Chronic Obstructive Pulmonary Disease (COPD), Hx Sleep Apnea - 2L at night w/CPAP Denies: Hx Asthma - copd, Hx Chronic Bronchitis, Hx Cystic Fibrosis, Hx Lung Cancer, Hx Pleural Effusion, Hx Pneumonia, Hx Pulmonary Edema, Hx Pulmonary Embolism, Hx Seasonal Allergies Comment Only: Other Respiratory Problems/Disorders - copd, o2 2l at night GI History: Denies: Hx Cirrhosis, Hx Crohn's Disease, Hx Diverticulosis, Hx Gall Bladder Disease, Hx Gastroesophageal Reflux Disease, Hx Gastrointestinal Bleed, Hx Hiatal Hernia, Hx Irritable Bowel, Hx Jaundice, Hx Obstructive Bowel, Hx Ileostomy, Hx Pyloric Stenosis, Hx Ulcer, Other GI Disorders History: Reports: Hx Benign Prostatic Hyperplasia, Hx Kidney Stones Denies: Hx Acute Renal Failure, Hx Chronic Renal Failure, Hx Dialysis, Hx Kidney Infection, Other Problems/Disorders Musculoskeletal History: Denies: Hx Arthritis, Hx Back Problems, Hx Bursitis, Hx Congenital Bone Abnormalities, Hx Fibromyalgia, Hx Gout, Hx Orthopedic Injury, Hx Osteoporosis, Hx Scoliosis, Hx Tendonitis, Other Musculoskeletal History Sensory History: Reports: Hx Contacts or Glasses Denies: Hx Cataracts, Hx Eye Injury, Hx Eye Prosthesis, Hx Glaucoma, Hx Legally Blind, Hx Macular Degeneration, Hx Vision Problem, Hx Deafness, Hx Hearing Aid, Hx Hearing Problem, Other Sensory Impairments Opthamlomology History: Reports: Hx Contacts or Glasses Denies: Hx Cataracts, Hx Eye Injury, Hx Eye Prosthesis, Hx Glaucoma, Hx Legally Blind, Hx Macular Degeneration, Hx Vision Problem, Other Sensory Impairments Neurological History: Reports: Other Neuro Impairments/Disorders - passed out a few times after coughing attack Denies: Hx Dementia, Hx Developmental Delay, Hx Headaches, Hx Migraine, Hx Nerve Disease, Hx Seizures, Hx Spinal Cord Injury, Hx Transient Ischemic Attacks (TIA) Psychiatric History: Denies: Hx Anxiety, Hx Attention Deficit Hyperactivity Disorder, Hx Eating Disorder, Hx Depression, Hx Panic Disorder, Hx Post Traumatic Stress Disorder, Hx Inpatient Treatment, Hx Community Mental Health Tx, Hx Schizophrenia, Hx Bipolar Disorder, Hx Suicide Attempt, Hx of Violent Episodes Against Others, Hx Substance Abuse, Other Psychiatric Issues/Disorders - Cancer History Hx Chemotherapy: No Hx Radiation Therapy: No Hx Palliative Cancer Treatment: No - Surgical History Surgery Procedure, Year, and Place: APPY, KIDNEY STONE RETRIEVAL,FISTULA REPAIR Hx Anesthesia Reactions: No Infectious Disease History: Denies: Hx Clostridium Difficile, Hx Hepatitis, Hx Human Immunodeficiency Virus (HIV), Hx of Known/Suspected MRSA, Hx Shingles, Hx Tuberculosis, History Other Infectious Disease - Family History Known Family History: Positive: Hypertension Negative: Diabetes - Social History Alcohol Use: Daily Alcohol Amount: pt states "a few shots of april a day" Hx Substance Use: No Substance Use Type: Reports: None Hx Tobacco Use: Yes - former smoker Smoking Status (MU): Former Smoker Type: Cigarettes Amount Used/How Often: 1-2 cigarettes/day Have You Smoked in the Last Year: Yes Review of Systems Positive: Chills Positive: Shortness Of Breath All Other Systems Reviewed And Are Negative: Yes Physical Exam - Summary Physical Exam Summary: Constitutional: Well-developed, Well-nourished, Alert. Patient is in respiratory distress. Patient is tachypneic and retracting Skin: Warm, Dry HENT: Normocephalic; Atraumatic Eyes: Conjunctiva normal Neck: Musculoskeletal ROM normal neck. (-) JVD, (-) Stridor, (-) Tracheal deviation Cardio: Rhythm regular, rate normal, Heart sounds normal; Intact distal pulses; The pedal pulses are 2+ and symmetric. Radial pulses are 2+ and symmetric. (-) Murmur Pulmonary/Chest wall: Patient has diminished breath sounds bilaterally, worse in the left lung Abd: Soft, (-) tenderness, (-) Distension, (-) Guarding, (-) Rebound Musculoskeletal: (-) Edema Lymph: (-) Cervical adenopathy Neuro: Alert, Oriented x3 Psych: Mood and affect Normal SKIN: Mottled abdominal skin Triage Information Reviewed: Yes Vital Signs Reviewed: Yes Diagnostics - Laboratory Result Diagrams: 05/14/19 13:28 05/14/19 13:28 Lab Statement: Any lab studies that have been ordered have been reviewed, and results considered in the medical decision making process. - Radiology CXR Radiology Interpretation Completed By: Radiologist Summary of Radiographic Findings: FINDINGS CONSISTENT WITH COPD, NO EVIDENCE FOR ACUTE DISEASE. ED physician has reviewed this report. - EKG 1328 Summary of EKG Findings: RBBB, lots of artifacts present, no obvious STEMI - Additional Comments Diagnostic Additional Comments: Chest/Thorax CTA, per radiologist: 1. LIMITED STUDY, NO EVIDENCE FOR PULMONARY EMBOLISM. 2. FINDINGS CONSISTENT WITH OLD GRANULOMATOUS DISEASE. 3. EMPHYSEMA. 4. ECTASIA OF THE ASCENDING THORACIC AORTA, UNCHANGED. ED physician has reviewed this report. Re-Evaluation - Re-Evaluation First Eval Re-Evaluation Time: 15:13 Change: Improved Comment: patient taken off CPAP, feels better, is now on 3L nasal cannula Course/Dx - Course Course Of Treatment: Patient was brought in with sudden onset severe respiratory distress. Patient was satting in the 70s on room air per EMS. Patient had a stat chest x-ray which showed no evidence of pneumothorax. Patient is placed on BiPAP and given a DuoNeb. Patient is given Solu-Medrol, azithromycin, Rocephin. Patient had motor performed which showed an elevated d- dimer. Patient had a negative CTA for PE. Patient was not retaining PCO2 per his VBG. Patient was weaned off BiPAP and was placed on 3 L nasal cannula. Patient is admitted to medicine for further management. - Diagnoses Provider Diagnoses: Acute respiratory distress, COPD exacerbation - Physician Notifications Discussed Care of Patient With: Stefany Buchanan Time Discussed With Above Provider: 15:40 Instructed by Provider To: Other - Dr. Buchanan, hospitalist, agrees to admit patient - Critical Care Time Critical Care Time: 30-74 min Discharge ED - Sign-Out/Discharge Documenting (check all that apply): Patient Departure - Admit Patient Received Moderate/Deep Sedation with Procedure: No - Discharge Plan Condition: Stable Disposition: ADMITTED TO [facility] Referrals: Lluvia Stevens, PROPERTY HANDLER [Primary Care Provider] - - Billing Disposition and Condition Condition: STABLE Disposition: Admitted to [facility] - Attestation Statements Document Initiated by Scribe: Yes Documenting Scribe: Zehra Goldsmith Provider For Whom Scribe is Documenting (Include Credential): Fabricio Jarquin MD Scribe Attestation: I, Zehra Goldsmith, scribed for Fabricio Jarquin MD on 05/14/19 at 1609. Scribe Documentation Reviewed: Yes Provider Attestation: The documentation as recorded by the scribe, Zehra Goldsmith accurately reflects the service I personally performed and the decisions made by me, Fabricio Jarquin MD Status of Scribe Document: Viewed
[2019-05-14 13:44] LABS: ABS Lymphocytes 0.8 10^3/ul (1.0-4.8); ABS Monocytes 0.1 10^3/ul (0-0.8); ABS Neutrophils 8.5 10^3/ul (1.5-7.7); Eosinophil % 0.3 %; Hematocrit 46 % (42-52); Hemoglobin 15.4 g/dL (14.0-18.0); Lymphocyte % 8.5 %; Mean Corpuscular HGB Conc 34 g/dL (31-36); Mean Corpuscular Hemoglobin 33 pg (27-31); Mean Corpuscular Volume 99 fL (80-94); Mean Platelet Volume 8.3 fL (7.4-10.4); Platelet Count 144 10^3/uL (150-450); Red Blood Count 4.63 10^6 /uL (4.18-5.48); Red Cell Distribution Width 14 % (10-15); White Blood Count 9.5 10^3/uL (3.5-10.8)
[2019-05-14] MEDS ORDERED: Ondansetron INJ* 2 MG/ML VIAL IV ONE (13:47)
[2019-05-14 13:56] LABS: Albumin 4.7 g/dL (3.2-5.2); Albumin/Globulin Ratio 1.9 (1-3); BUN/Creatinine Ratio 14.1 (8-20); Calcium 9.6 mg/dL (8.6-10.3); EGFR Non-African American 52.1 (>60); Globulin 2.5 g/dL (2-4); Potassium 4.2 mmol/L (3.5-5.0); Total Bilirubin 0.7 mg/dL (0.2-1.0); Total Protein 7.2 g/dL (6.4-8.9)
[2019-05-14 13:58] LABS: Troponin I 0.01 ng/mL (<0.04)
[2019-05-14] MEDS ORDERED: Acetaminophen TAB* 325 MG PO ONE (14:18)
[2019-05-14] MEDS ORDERED: Iodixanol* (CONTRAST) 320 MG/ML 100 ML SDV IV ONE (14:39)
[2019-05-14] MEDS ORDERED: Azithromycin 500 mg/250 ml NS 500 MG/250 ML BAG IVPB ONE (15:01)
[2019-05-14] MEDS ORDERED: cefTRIAXone(*) 1 GM in NS 0.9% 50 ML* 50 ML IVPB ONE (15:01)
[2019-05-14] MEDS ORDERED: cefTRIAXone(*) 1 GM ADVAN/BAG ONE (15:21)
[2019-05-14] MEDS ORDERED: Acetaminophen TAB* 325 MG PO PRN (17:15)
[2019-05-14] MEDS ORDERED: Albuterol HFA INHALER* 8 gm MDI INH PRN (17:22)
[2019-05-14] MEDS ORDERED: Ipratropium 0.5MG/2.5ML NEB* 0.5 MG/2.5 ML NEB.SOLN INH PRN (17:22)
[2019-05-14] MEDS ORDERED: Albuterol/Ipratropium NEB.SOL* Albuterol 2.5 MG/Ipratropium 0.5 MG 3 ML INH PRN (17:24)
[2019-05-14] MEDS ORDERED: Dextrose 50% VIAL 50 ml IV PUSH PRN (17:24)
[2019-05-14 17:37] LABS: C Reactive Protein 5.99 mg/L (<8.01)
--- NOTE | 2019-05-14 18:43 | HP ---
CC: Lluvia Stevens NP; Dr. Mix * HISTORY AND PHYSICAL: DATE OF ADMISSION: 05/14/19 PRIMARY CARE PROVIDER: Lluvia Stevens NP CHIEF COMPLAINT: Shortness of breath and shivers. HISTORY OF PRESENT ILLNESS: Brandan Taylor is a 73-year-old male with history of oxygen-dependent COPD as well as obstructive sleep apnea, on BiPAP. The patient stated that he uses his oxygen at home with exercise only. When he is stationary, his oxygen saturation is approximately 95% on room air, but whenever he moves and walks to the bathroom, he needs his oxygen. He also uses oxygen with BiPAP at night. He stated that he had been doing well, although he has had intermittent loose bowel movements for the past couple of weeks. He said that it would happen occasionally; in the morning, he would have a hard bowel movement, but later on in the afternoon, he would have loose one. He denies any abdominal pain. He has not had any recent antibiotics. Today in the morning, he was sitting by the computer desk and all of a sudden developed chills and could not breathe. He came into the ED, he needed to be placed on BiPAP, treated with BiPAP for a couple of hours and eventually the BiPAP was discontinued. Currently, he feels well. He is going to be admitted with a diagnosis of COPD exacerbation. PAST MEDICAL HISTORY: 1. History of obesity. 2. History of COPD, on oxygen with exercise and at night. 3. Diabetes type 2, on insulin. 4. Hypertension. 5. Hyperlipidemia. 6. BPH. 7. Obstructive sleep apnea, on BiPAP with numbers of 15/11 and 2 L of oxygen at bedtime. 8. Nephrolithiasis. PAST SURGICAL HISTORY: 1. Status post appendectomy. 2. History of vasectomy. 3. History of perianal fissure and fistula repair. MEDICATIONS AT HOME: Include: 1. Incruse Ellipta 62.5 mcg daily. 2. Atenolol 25 mg b.i.d. 3. Breo Ellipta 1 puff daily. 4. Mag-Ox 400 mg daily. 5. Insulin Lantus 40 units daily. 6. Aspirin 81 mg daily. 7. Simvastatin (Zocor) 10 mg at bedtime. 8. Multivitamin 1 tablet daily. 9. Albuterol inhaler on a p.r.n. basis. 10. Flomax 0.4 mg daily. 11. Atrovent nebulizer 3 times a day p.r.n. 12. Lisinopril 20 mg daily. 13. Hydrochlorothiazide 25 mg daily. ALLERGIES: AMOXICILLIN, OXYCODONE, and SULFA. FAMILY HISTORY: Positive for father with colon cancer and diabetes, who of heart disease in his 70s. Mother who is from motor vehicle collision. SOCIAL HISTORY: The patient has history of smoking 1 pack per day since the age of 18. He denies any alcohol or drug use. His surrogate decision maker is his son, Sigifredo, phone number [phone]. REVIEW OF SYSTEMS: Please see history of present illness. All the remaining 12 systems were reviewed with the patient and were otherwise negative. PHYSICAL EXAMINATION GENERAL: The patient is a very pleasant 73-year-old morbidly obese male, in no acute distress. The patient is alert and oriented x3. VITAL SIGNS: Blood pressure of 107/56, heart rate of 89 and regular, respiratory rate 18, oxygen saturation 93% on 5 L of oxygen via nasal cannula, temperature of 98.5. HEENT: Head: Atraumatic, normocephalic. Eyes: Pupils are equal, reactive to light and accommodation. Oropharynx is clear. Mucosa moist. NECK: Supple. No JVD. No bruits bilaterally. RESPIRATORY: Diffuse wheezes in bilateral lower mid lungs. CARDIOVASCULAR: Regular rate and rhythm. No murmur. ABDOMEN: Very protuberant, tympanitic to percussion, soft, nontender. Bowel sounds are present in all 4 quadrants. EXTREMITIES: There is trace bilateral ankle edema. Pulses are +2 bilaterally. No clubbing or cyanosis. NEUROLOGIC EVALUATION: Speech is clear. Cranial nerves II through XII are grossly intact. Motor strength is 5/5 bilaterally. SKIN: On evaluation of the skin, no ecchymotic areas or rashes noted. DIAGNOSTIC STUDIES/LAB DATA: Laboratory data showed white blood cell count of 9.5, hemoglobin of 15.4, hematocrit 46, MCV of 99, and platelets of 144. D- dimer was 501. Venous blood gas showed pH of 7.47, pCO2 of 45, pO2 of 59. Sodium was 141, potassium 4.2, chloride 97, carbon dioxide 35, BUN 19, creatinine 1.35. Liver function tests with slight elevation of AST and ALT of 48 and 63 respectively. Brain natriuretic peptide was 162 and C-reactive protein was 5.9. The patient's CT angiogram of the chest, impression: "Limited study. No evidence of pulmonary embolism. Findings consistent with old granulomatous disease. Emphysema. Ectasia of the ascending thoracic aorta unchanged." The patient's EKG showed right bundle-branch block with a heart rate of 97 beats per minute, negative T-waves throughout his septal and lateral leads due to left bundle-branch block that are unchanged comparing with EKG from December of 2018. ASSESSMENT AND PLAN: 1. Sudden onset of hypoxemia in a patient with history of advanced lung disease. The patient is going to be admitted with a diagnosis of acute chronic obstructive pulmonary disease exacerbation as the cause of his hypoxemia. He was on BiPAP in the emergency department, but currently he is okay on 5 L of oxygen nasal cannula. He is going to be treated with Solu-Medrol, azithromycin, and ceftriaxone. BiPAP is going to be used at nighttime, which the patient uses for his obstructive sleep apnea at baseline. 2. For his diabetes management, the patient is going to be continued on his insulin Lantus as well as insulin lispro sliding scale. 3. The patient has elevated creatinine. I suspect he is slightly prerenal. Hydrochlorothiazide and LUCY inhibitor are going to be held and we will check his creatinine level in the morning. 4. For DVT prophylaxis, the patient is going to be placed on heparin subcutaneously. 5. The patient stated that he had chills, but his C-reactive protein is not elevated. Nevertheless, blood cultures were obtained and we await the results. I will also obtain a urinalysis to evaluate it further. TIME SPENT: Approximately 60 minutes was spent on admission of this patient, more than half that time was spent [id number] with the patient during the interview and physical exam. [id number]/[facility] #: [id number] KORINA
[2019-05-14] MEDS: Atenolol TAB* 25 MG PO SCH (21:41)
[2019-05-14] MEDS: Tamsulosin CAP* 0.4 MG PO SCH (21:41)
[2019-05-14] MEDS: Insulin LISPRO* 1 UNITS UNIT SUBCUT SCH (21:42)
[2019-05-14] MEDS: Atorvastatin* 10 MG TAB PO SCH (21:42)
[2019-05-14] MEDS: methylPREDNISolone SOD 40 MG* 1 ML VIAL IV SCH (21:44)
[2019-05-14] MEDS: Heparin VIAL(*) 5000 UNITS/ML VIAL (FIVE THOUSAND) SUBCUT SCH (21:44)
[2019-05-15] MEDS: Heparin VIAL(*) 5000 UNITS/ML VIAL (FIVE THOUSAND) SUBCUT SCH ×3 (06:34→20:33)
[2019-05-15] MEDS: methylPREDNISolone SOD 40 MG* 1 ML VIAL IV SCH (06:35)
[2019-05-15 07:41] LABS: Urine Appearance Cloudy; Urine Bilirubin Negative (Negative); Urine Blood Negative (Negative); Urine Color Yellow; Urine Glucose Negative (Negative); Urine Ketones Negative (Negative); Urine Nitrite Negative (Negative); Urine Protein Negative (Negative); Urine Specific Gravity 1.036 (1.010-1.030); Urine Urobilinogen Negative (Negative)
[2019-05-15] MEDS: SPIRIVA Respimat* (tiotropium) 2.5 mcg/inh Inhaler INH SCH (07:54)
[2019-05-15] MEDS: Insulin LISPRO* 1 UNITS UNIT SUBCUT SCH ×4 (08:45→20:31)
[2019-05-15] MEDS: Magnesium Oxide TAB* 400 MG PO SCH (08:46)
[2019-05-15] MEDS: Insulin GLARGINE(*) 1 UNITS UNIT SUBCUT SCH (08:46)
[2019-05-15] MEDS: Atenolol TAB* 25 MG PO SCH ×2 (08:46→20:34)
[2019-05-15] MEDS: Aspirin EC TAB* 81 MG TAB.EC PO SCH (08:46)
[2019-05-15 12:49] LABS: Hematocrit 41 % (42-52); Hemoglobin 13.9 g/dL (14.0-18.0); Mean Corpuscular HGB Conc 34 g/dL (31-36); Mean Corpuscular Hemoglobin 33 pg (27-31); Mean Corpuscular Volume 98 fL (80-94); Mean Platelet Volume 9.3 fL (7.4-10.4); Platelet Count 126 10^3/uL (150-450); Red Cell Distribution Width 14 % (10-15); White Blood Count 22.7 10^3/uL (3.5-10.8)
[2019-05-15 13:08] LABS: ALT 49 U/L (7-52); AST 41 U/L (13-39); Albumin 4.6 g/dL (3.2-5.2); Albumin/Globulin Ratio 2.1 (1-3); Alkaline Phosphatase 62 U/L (34-104); BUN/Creatinine Ratio 20.8 (8-20); Calcium 9.3 mg/dL (8.6-10.3); EGFR African American 52.2 (>60); EGFR Non-African American 43.1 (>60); Globulin 2.2 g/dL (2-4); Potassium 4.5 mmol/L (3.5-5.0); Total Protein 6.8 g/dL (6.4-8.9)
[2019-05-15] MEDS ORDERED: NS 0.9% 1000 ML** 1,000 ML IV SCH (13:15)
--- NOTE | 2019-05-15 13:18 | PN ---
Subjective Date of Service: 05/15/19 Interval History: Today pt remembers that he vomited once prior to the onset of SOB. Has been having intermittent loose BM x 2 weeks(max 3x/day) Feels much better today, back to being on RA when not ambulating Objective Active Medications: Acetaminophen (Tylenol Tab*) 650 mg PO Q4H PRN PRN Reason: PAIN-MILD/TEMP >/= 100.4 Albuterol (Ventolin Hfa Inhaler*) 2 puff INH Q4H PRN PRN Reason: wheezing Albuterol/Ipratropium (Duoneb (Albuterol 2.5 Mg/Ipratropium 0.5 Mg)) 1 neb INH Q4H PRN PRN Reason: SOB/WHEEZING Aspirin (Aspirin Ec Tab*) 81 mg PO DAILY [facility] Last Admin: 05/15/19 08:46 Dose: 81 mg Atenolol (Tenormin Tab*) 25 mg PO BID [facility] Last Admin: 05/15/19 08:46 Dose: 25 mg Atorvastatin Calcium (Lipitor*) 5 mg PO BEDTIME [facility] Last Admin: 05/14/19 21:42 Dose: 5 mg Dextrose (Dextrose 50% Vial 50 Ml*) 25 ml IV PUSH .FOR FS < 60 - SS PRN PRN Reason: FS < 60 Heparin Sodium (Porcine) (Heparin Vial(*)) 5,000 units SUBCUT Q8HR [facility] Last Admin: 05/15/19 06:34 Dose: 5,000 units Azithromycin (Zithromax 500 Mg/250 Ml) 500 mg in 250 mls @ 250 mls/hr IVPB Q24H [facility] Ceftriaxone Sodium 1 gm/ (Sodium Chloride) 50 mls @ 100 mls/hr IVPB Q24H [facility] Sodium Chloride (Ns 0.9% 1000 Ml) 1,000 mls @ 75 mls/hr IV PER RATE [facility] Stop: 05/16/19 02:34 Insulin Glargine (Lantus(*)) 40 units SUBCUT DAILY [facility] Last Admin: 05/15/19 08:46 Dose: 40 units Insulin Human Lispro (Humalog*) 0 units SUBCUT ACHS [facility]; Protocol Last Admin: 05/15/19 12:01 Dose: 2 units Ipratropium [place] (Atrovent 0.5 Mg Neb.Tory*) 0.5 mg INH TID PRN PRN Reason: SHORTNESS OF BREATH Magnesium Oxide (Magox 400 Tab*) 400 mg PO DAILY [facility] Last Admin: 05/15/19 08:46 Dose: 400 mg Methylprednisolone Sodium Succinate (Solu-Medrol 40 Mg) 40 mg IV Q8H [facility] Last Admin: 05/15/19 06:35 Dose: 40 mg Tamsulosin HCl (Flomax Cap*) 0.4 mg PO QPM [facility] Last Admin: 05/14/19 21:41 Dose: 0.4 mg Tiotropium [place] (Spiriva Respimat 2.5 Mcg) 2 puff INH DAILY [facility] Last Admin: 05/15/19 07:54 Dose: 2 puff Vital Signs - 8 hr 05/15/19 05/15/19 05/15/19 07:15 07:55 08:00 Temperature 96.5 F Pulse Rate 53 Respiratory 16 16 18 Rate Blood Pressure 112/48 (mmHg) O2 Sat by Pulse 95 95 Oximetry 05/15/19 11:21 Temperature 97.3 F Pulse Rate 68 Respiratory 17 Rate Blood Pressure 107/52 (mmHg) O2 Sat by Pulse 94 Oximetry Oxygen Devices in Use Now: None Appearance: 73 yo M in nAD, aAOx3 Eyes: No Scleral Icterus, PERRLA Ears/Nose/Mouth/Throat: NL Teeth, Lips, Gums, Mucous Membranes Moist Neck: NL Appearance and Movements; NL JVP, Trachea Midline Respiratory: Symmetrical Chest Expansion and Respiratory Effort, - - distent breath sounds b/l, no sig. wheezing Cardiovascular: NL Sounds; No Murmurs; No JVD, RRR Abdominal: NL Sounds; No Tenderness; No Distention, - - abd large, protruberant Lymphatic: No Cervical Adenopathy Extremities: No Edema, No Clubbing, Cyanosis Skin: No Rash or Ulcers, No Nodules or Sclerosis Neurological: Alert and Oriented x 3, NL Muscle Strength and Tone Result Diagrams: 05/15/19 12:39 05/15/19 12:39 Assess/Plan/Problems-Billing Assessment: 73yom with PMHx obesity, COPD, DMII, HTN, HLD, BPH, MYRON, nightime O2 who presents with COPD exacerbation.Needed BIPAP in ED - Patient Problems (1) ESPINOZA (acute kidney injury) Comment: appear prerenal -in this pt with intermittent loose stool and vomitting on day of admission will tx with gentle IVF Lisinopril and HCTZ held (2) Acute respiratory failure with hypoxia Comment: - Secondary to COPD exacerbation. - will switch Solu Medrol to PO Prednisone cont duonebs prn -cotn BIPAP at night and 02 with ambulation -today velazquez to his home 02 requirements (3) COPD exacerbation Current Visit: No Comment: - Resolving-see above (4) Nausea, vomiting, and diarrhea Comment: Resolved. (5) Diabetes Comment: -Controlled -Continue Lantus and Lispro ss (6) HTN (hypertension) Comment: -Controlled -Continue atenolol. Lisinopril held due to ESPINOZA (7) Leukocytosis Comment: marked, likely steroid related Awaiitng blood cx results (8) DVT prophylaxis Comment: - SQ heparin Status and Disposition: inpatient
[2019-05-15 13:42] LABS: ABS Basophils 0.1 10^3/ul (0-0.2); ABS Lymphocytes 0.5 10^3/ul (1.0-4.8); ABS Monocytes 0.5 10^3/ul (0-0.8); ABS Neutrophils 21.6 10^3/ul (1.5-7.7); Eosinophil % 0.1 %; Lymphocyte % 2.3 %
[2019-05-15] MEDS: cefTRIAXone(*) 1 GM in NS 0.9% 50 ML* 50 ML IVPB SCH (17:09)
[2019-05-15] MEDS: Tamsulosin CAP* 0.4 MG PO SCH (17:40)
[2019-05-15] MEDS: Azithromycin 500 mg/250 ml NS 500 MG/250 ML BAG IVPB SCH (17:41)
[2019-05-15] MEDS: Atorvastatin* 10 MG TAB PO SCH (20:33)
[2019-05-15] MEDS: Lactobacillus Acidophilus* 1 TAB PO SCH (20:33)
[2019-05-16] MEDS: Heparin VIAL(*) 5000 UNITS/ML VIAL (FIVE THOUSAND) SUBCUT SCH ×3 (05:44→21:13)
[2019-05-16 07:51] LABS: ABS Neutrophils 12.2 10^3/ul (1.5-7.7); Hematocrit 41 % (42-52); Hemoglobin 13.8 g/dL (14.0-18.0); Lymphocyte % 7.2 %; Mean Corpuscular HGB Conc 34 g/dL (31-36); Mean Corpuscular Hemoglobin 33 pg (27-31); Mean Corpuscular Volume 98 fL (80-94); Mean Platelet Volume 9.1 fL (7.4-10.4); Platelet Count 132 10^3/uL (150-450); Red Blood Count 4.14 10^6 /uL (4.18-5.48); Red Cell Distribution Width 14 % (10-15); White Blood Count 14.2 10^3/uL (3.5-10.8)
[2019-05-16] MEDS: SPIRIVA Respimat* (tiotropium) 2.5 mcg/inh Inhaler INH SCH (07:54)
[2019-05-16 08:20] LABS: BUN/Creatinine Ratio 24.6 (8-20); Calcium 8.9 mg/dL (8.6-10.3); EGFR African American 70.9 (>60); EGFR Non-African American 58.6 (>60); Potassium 4.7 mmol/L (3.5-5.0)
[2019-05-16] MEDS: Insulin LISPRO* 1 UNITS UNIT SUBCUT SCH ×4 (09:08→21:11)
[2019-05-16] MEDS: Insulin GLARGINE(*) 1 UNITS UNIT SUBCUT SCH (09:09)
[2019-05-16] MEDS: Lactobacillus Acidophilus* 1 TAB PO SCH ×2 (09:10→21:13)
[2019-05-16] MEDS: predniSONE TAB* 50 MG PO SCH (09:10)
[2019-05-16] MEDS: Magnesium Oxide TAB* 400 MG PO SCH (09:10)
[2019-05-16] MEDS: Aspirin EC TAB* 81 MG TAB.EC PO SCH (09:10)
[2019-05-16] MEDS: Atenolol TAB* 25 MG PO SCH ×2 (09:10→21:13)
[2019-05-16] MEDS: Albuterol/Ipratropium NEB.SOL* Albuterol 2.5 MG/Ipratropium 0.5 MG 3 ML INH SCH ×2 (13:20→19:19)
--- NOTE | 2019-05-16 13:23 | PN ---
Subjective Date of Service: 05/16/19 Interval History: Pt feels a little more SOB and "swollen " today. After the IVF last night urinated "a lot" Objective Active Medications: Acetaminophen (Tylenol Tab*) 650 mg PO Q4H PRN PRN Reason: PAIN-MILD/TEMP >/= 100.4 Albuterol (Ventolin Hfa Inhaler*) 2 puff INH Q4H PRN PRN Reason: wheezing Albuterol/Ipratropium (Duoneb (Albuterol 2.5 Mg/Ipratropium 0.5 Mg)) 1 neb INH [id number] AWAKE [facility] Aspirin (Aspirin Ec Tab*) 81 mg PO DAILY [facility] Last Admin: 05/16/19 09:10 Dose: 81 mg Atenolol (Tenormin Tab*) 25 mg PO BID [facility] Last Admin: 05/16/19 09:10 Dose: 25 mg Atorvastatin Calcium (Lipitor*) 5 mg PO BEDTIME [facility] Last Admin: 05/15/19 20:33 Dose: 5 mg Dextrose (Dextrose 50% Vial 50 Ml*) 25 ml IV PUSH .FOR FS < 60 - SS PRN PRN Reason: FS < 60 Heparin Sodium (Porcine) (Heparin Vial(*)) 5,000 units SUBCUT Q8HR [facility] Last Admin: 05/16/19 05:44 Dose: 5,000 units Azithromycin (Zithromax 500 Mg/250 Ml) 500 mg in 250 mls @ 250 mls/hr IVPB Q24H [facility] Last Admin: 05/15/19 17:41 Dose: 250 mls/hr Ceftriaxone Sodium 1 gm/ (Sodium Chloride) 50 mls @ 100 mls/hr IVPB Q24H [facility] Last Admin: 05/15/19 17:09 Dose: 100 mls/hr Insulin Glargine (Lantus(*)) 40 units SUBCUT DAILY [facility] Last Admin: 05/16/19 09:09 Dose: 40 units Insulin Human Lispro (Humalog*) 0 units SUBCUT ACHS [facility]; Protocol Last Admin: 05/16/19 13:02 Dose: 2 units Ipratropium [place] (Atrovent 0.5 Mg Neb.Tory*) 0.5 mg INH TID PRN PRN Reason: SHORTNESS OF BREATH Lactobacillus Rhamnosus (Lactobacillus Acidophilus*) 1 tab PO BID [facility] Last Admin: 05/16/19 09:10 Dose: 1 tab Magnesium Oxide (Magox 400 Tab*) 400 mg PO DAILY [facility] Last Admin: 05/16/19 09:10 Dose: 400 mg Prednisone (Deltasone Tab*) 50 mg PO DAILY [facility] Last Admin: 05/16/19 09:10 Dose: 50 mg Tamsulosin HCl (Flomax Cap*) 0.4 mg PO QPM [facility] Last Admin: 05/15/19 17:40 Dose: 0.4 mg Tiotropium [place] (Spiriva Respimat 2.5 Mcg) 2 puff INH DAILY [facility] Last Admin: 05/16/19 07:54 Dose: 2 puff Vital Signs - 8 hr 05/16/19 05/16/19 05/16/19 07:11 07:56 08:00 Temperature 97 F Pulse Rate 97 60 Respiratory 16 14 18 Rate Blood Pressure 93/55 (mmHg) O2 Sat by Pulse 100 92 Oximetry 05/16/19 05/16/19 10:04 13:16 Temperature Pulse Rate 56 Respiratory 16 Rate Blood Pressure 118/61 (mmHg) O2 Sat by Pulse 97 Oximetry Oxygen Devices in Use Now: Nasal Cannula Appearance: 73 yo m in nAD, aAOx3 Eyes: No Scleral Icterus, PERRLA Ears/Nose/Mouth/Throat: NL Teeth, Lips, Gums, Mucous Membranes Moist Neck: NL Appearance and Movements; NL JVP, Trachea Midline Respiratory: - - diffuse wheezes b/l, when walking on 02 , sat would drop to 85% Cardiovascular: NL Sounds; No Murmurs; No JVD, RRR Lymphatic: No Cervical Adenopathy Extremities: - - +1 pedal edema b/l Skin: No Nodules or Sclerosis Neurological: Alert and Oriented x 3, NL Muscle Strength and Tone Result Diagrams: 05/16/19 07:18 05/16/19 07:18 Microbiology and Other Data: Microbiology 05/14/19 13:44 Aerobic Blood Culture - Preliminary Blood Venous No Growth Day 1 Anaerobic Blood Culture - Preliminary No Growth Day 1 05/14/19 13:44 Aerobic Blood Culture - Preliminary Blood Venous No Growth Day 1 Anaerobic Blood Culture - Preliminary No Growth Day 1 Assess/Plan/Problems-Billing Assessment: 73yom with PMHx obesity, COPD, DMII, HTN, HLD, BPH, MYRON, nightime O2 who presents with COPD exacerbation.Needed BIPAP in ED - Patient Problems (1) ESPINOZA (acute kidney injury) Comment: appears prerenal -in this pt with intermittent loose stool and vomitting on day of admission, improving with IVF Lisinopril and HCTZ held (2) Acute respiratory failure with hypoxia Comment: - Secondary to COPD exacerbation. - will switch Solu Medrol to PO Prednisone cont duonebs prn -cotn BIPAP at night and 02 with ambulation -today velazquez to his home 02 requirements (3) COPD exacerbation Current Visit: No Comment: - Initially improved, now worse with IVF, will cont PO Prednisone, start nebs [facility], cont to montior one more day (4) Nausea, vomiting, and diarrhea Comment: Resolved. (5) Diabetes Comment: -Controlled -Continue Lantus and Lispro ss (6) HTN (hypertension) Comment: -Controlled -Continue atenolol. Lisinopril held due to ESPINOZA (7) Leukocytosis Comment: marked, likely steroid related,improved, blood cx NTD (8) DVT prophylaxis Comment: - SQ heparin Status and Disposition: inpatient
[2019-05-16] MEDS ORDERED: Albuterol/Ipratropium NEB.SOL* Albuterol 2.5 MG/Ipratropium 0.5 MG 3 ML INH SCH (14:00)
[2019-05-16] MEDS: cefTRIAXone(*) 1 GM in NS 0.9% 50 ML* 50 ML IVPB SCH (17:33)
[2019-05-16] MEDS: Tamsulosin CAP* 0.4 MG PO SCH (17:42)
[2019-05-16] MEDS: Azithromycin 500 mg/250 ml NS 500 MG/250 ML BAG IVPB SCH (18:27)
[2019-05-16] MEDS: Atorvastatin* 10 MG TAB PO SCH (21:13)
[2019-05-17] MEDS: Albuterol/Ipratropium NEB.SOL* Albuterol 2.5 MG/Ipratropium 0.5 MG 3 ML INH SCH ×2 (01:28→07:09)
[2019-05-17] MEDS: Heparin VIAL(*) 5000 UNITS/ML VIAL (FIVE THOUSAND) SUBCUT SCH ×2 (06:09→13:26)
[2019-05-17] MEDS: SPIRIVA Respimat* (tiotropium) 2.5 mcg/inh Inhaler INH SCH (07:09)
[2019-05-17] MEDS ORDERED: Influenza VAC *QUAD* 2019-20* 0.5 ML SYRINGE IM ONE (09:00)
[2019-05-17 09:19] LABS: BUN/Creatinine Ratio 22.3 (8-20); Calcium 9.1 mg/dL (8.6-10.3); EGFR African American 78.2 (>60); EGFR Non-African American 64.6 (>60); Potassium 4.1 mmol/L (3.5-5.0)
[2019-05-17] MEDS: Insulin LISPRO* 1 UNITS UNIT SUBCUT SCH ×2 (10:24→13:26)
[2019-05-17] MEDS: Insulin GLARGINE(*) 1 UNITS UNIT SUBCUT SCH (10:25)
[2019-05-17] MEDS: Atenolol TAB* 25 MG PO SCH (10:27)
[2019-05-17] MEDS: predniSONE TAB* 50 MG PO SCH (10:27)
[2019-05-17] MEDS: Aspirin EC TAB* 81 MG TAB.EC PO SCH (10:27)
[2019-05-17] MEDS: Magnesium Oxide TAB* 400 MG PO SCH (10:27)
[2019-05-17] MEDS: Lactobacillus Acidophilus* 1 TAB PO SCH (10:27)
[2019-05-17 13:07] VITALS: BP 116/65
--- NOTE | 2019-05-17 16:29 | DS ---
ADDENDUM NOW INCLUDED ON THIS REPORT CC: Lluvia Stevens NP; Dr. Mix. * DISCHARGE SUMMARY: DATE OF ADMISSION: 05/14/19 DATE OF DISCHARGE: 05/17/19 PRIMARY CARE PROVIDER: Lluvia Stevens NP DISPOSITION AT DISCHARGE: Home. CONDITION ON DISCHARGE: Stable. DISCHARGE DIAGNOSES: 1. Acute hypoxic respiratory failure requiring initially BiPAP likely due to chronic obstructive pulmonary disease exacerbation and acute bronchitis. 2. Acute kidney injury due to mild dehydration with concomitant use of lisinopril, hydrochlorothiazide and the patient has had intermittent diarrhea and an episode of vomiting. SECONDARY DIAGNOSES: 1. History of severe oxygen dependent chronic obstructive pulmonary disease. The patient does not use oxygen when he is stationary, but he uses with exercise. He uses BiPAP at night for obstructive sleep apnea. 3. Diabetes type 2 on insulin. 3. Hypertension. 4. Hyperlipidemia. 5. Benign prostatic hyperplasia. 6. Obesity. 7. Nephrolithiasis. MEDICATIONS AT DISCHARGE: Include: 1. Albuterol inhaler on a p.r.n. basis. 2. Aspirin 81 mg daily. 3. Atenolol 25 mg b.i.d. 4. Breo Ellipta 1 puff daily. 5. Insulin glargine 40 units daily. 6. Multivitamin 1 tablet daily. 7. Simvastatin 10 mg at bedtime. 8. Flomax 0.4 mg daily. 9. Incruse Ellipta 62.5 mcg daily. 10. Azithromycin 150 mg daily for 2 days, then stop. 11. Cefdinir 300 mg b.i.d. for 5 days, then stop. 12. Mag-Ox 400 mg daily. 13. Prednisone 50 mg daily for 3 days, then stop. 14. DuoNeb 1 inhalation every 4 hours p.r.n. wheezing. DIAGNOSTIC STUDIES/LAB DATA: Performed during the hospital stay include: On white blood cell count of 14.2, hemoglobin 13.8, hematocrit of 41, and platelets of 132,000. D-dimer was 501 at admission. ABG at admission shows pH of 7.47, pCO2 of 45, pO2 of 59, bicarb of 30. On 05/17/19, sodium of 139, potassium 4.1, chloride 105, carbon dioxide 29, BUN 25 and creatinine of 1.12. Microbiology studies with blood cultures negative for growth. CT angiogram of the chest obtained on 05/14/19: Impression: "Limited study, no evidence for pulmonary embolism. Findings consistent with old granulomatous disease. Emphysema. Study of the ascending aorta unchanged." HOSPITALIZATION COURSE: Mr. Taylor is a 73-year-old male with history of COPD on oxygen with exercise and obstructive sleep apnea on BiPAP who presented to the hospital with sudden onset of shortness of breath and wheezing. He also vomited the day prior to admission. He required 2 hours of BiPAP treatment in the emergency department. Later on, his hypoxemia improved to the point that he was able to be admitted to medical floor. He was treated with steroids and antibiotics for COPD exacerbation and bronchitis. The patient reported that he has had intermittent diarrhea for the past couple of weeks. Despite that, he did not have any loose stools during the hospital stay that we could culture. Nevertheless, he was advised to use the probiotic on a daily basis. He was noted to have acute kidney injury with creatinine of 1.5, it may be that may have not improved initially due to contrast that the patient received with CT to rule out PE. The patient received gentle intravenous hydration and his kidney injury improved with creatinine at baseline by the time of discharge. Today, the patient is ready to go home and is recommended to follow with his primary care provider in 4 to [address] Mix in 1 to 2 weeks. He is going to be discharged on prednisone at 50 mg daily for another 3 days as well as his ceftriaxone and azithromycin. His lisinopril and hydrochlorothiazide were stopped. RECOMMENDATION: Restart his lisinopril in approximately a week if his renal function continues to be unchanged. PHYSICAL EXAM AT THE TIME OF DISCHARGE: Blood pressure 115/54, heart rate of 55 and regular, respiratory rate 20, oxygen saturation 94% on room air, temperature 97.8. General: The patient is a pleasant 73-year-old male in no acute distress. Alert, awake, oriented x3. HEENT: Head atraumatic normocephalic. Eyes: Pupils equal and reactive to light and accommodation. Oropharynx clear. Mucosa moist. Neck: Supple. No JVD. No bruits bilaterally. Cardiovascular: Regular rate and rhythm. No murmurs. Respiratory: Scant wheezes bilateral mid to lower lungs. Abdomen: Soft, nontender. Bowel sounds present in all 4 quadrants. Extremities: There is trace bilateral pedal edema. Pulses are +2 bilaterally. There is no clubbing or cyanosis. Neuro Evaluation: Grossly nonfocal, cranial nerves II through XII grossly intact. Speech clear. Motor strength is 5/5 bilaterally. Please note that this is a short summary of the patient's hospital stay. Please refer to further medical records for details. TIME SPENT: Approximately 40 minutes were spent on the patient's discharge. ADDENDUM: Just prior to the patient's actually physically leaving the hospital , the lab called that one of the 4 bottles of blood cultures drawn on the patient one of them is showing gram-positive bacilli in the anaerobic bottle. At this point, there is no other indication that the patient is septic, although he did have marked elevation of white blood cell count on the second day of his hospital stay likely related to high-dose steroid use. His urinalysis initially was unremarkable. At this point, I suspect that it is contamination, but the patient is requested to follow up with his primary care provider in approximately 4 days to follow up on his blood cultures. [id number]/[facility] #: [id number]- /[id number]/[facility] #: [id number] KORINA
--- NOTE | 2019-05-17 16:54 | DS ---
DISCHARGE SUMMARY: DATE OF ADMISSION: DATE OF DISCHARGE: ADDENDUM: Just prior to the patient's actually physically leaving the hospital , the lab called that one of the 4 bottles of blood cultures drawn on the patient one of them is showing gram-positive bacilli in the anaerobic bottle. At this point, there is no other indication that the patient is septic, although he did have marked elevation of white blood cell count on the second day of his hospital stay likely related to high-dose steroid use. His urinalysis initially was unremarkable. At this point, I suspect that it is contamination, but the patient is requested to follow up with his primary care provider in approximately 4 days to follow up on his blood cultures. [id number]/[facility] #: [id number] KORINA
== END 2019-05-17 14:45 | disposition hospice, home (50) | DRG 190 ==
LOC: ED 13:23 → MED 17:15 → OBSVTOIN 05-15 13:21
PROVIDERS: ADMIT Internal Medicine; ATTEND Internal Medicine
PROC: 5A09357 Assistance with Respiratory Ventilation, Less than 24 Consecutive Hours, Continuous Positive Airway Pressure (ICD-10-PCS; principal; 2019-05-14)
DX: J44.1 Chronic obstructive pulmonary disease with (acute) exacerbation (principal); J96.01 Acute respiratory failure with hypoxia; N17.9 Acute kidney failure, unspecified; J20.9 Acute bronchitis, unspecified; E86.0 Dehydration; R19.7 Diarrhea, unspecified; R11.10 Vomiting, unspecified; G47.33 Obstructive sleep apnea (adult) (pediatric); E11.9 Type 2 diabetes mellitus without complications; I10 Essential (primary) hypertension; E78.5 Hyperlipidemia, unspecified; J44.0 Chronic obstructive pulmonary disease with (acute) lower respiratory infection; N40.0 Benign prostatic hyperplasia without lower urinary tract symptoms; E66.01 Morbid (severe) obesity due to excess calories; E78.00 Pure hypercholesterolemia, unspecified; R11.2 Nausea with vomiting, unspecified; N20.0 Calculus of kidney; Z79.82 Long term (current) use of aspirin; Z79.4 Long term (current) use of insulin; Z99.81 Dependence on supplemental oxygen; Z98.52 Vasectomy status; Z88.0 Allergy status to penicillin; Z88.2 Allergy status to sulfonamides; Z88.5 Allergy status to narcotic agent; Z83.3 Family history of diabetes mellitus; Z82.49 Family history of ischemic heart disease and other diseases of the circulatory system; Z80.0 Family history of malignant neoplasm of digestive organs; Z68.38 Body mass index [BMI] 38.0-38.9, adult; Z88.8 Allergy status to other drugs, medicaments and biological substances; Z72.89 Other problems related to lifestyle; Z87.891 Personal history of nicotine dependence
CPT/HCPCS: 36415; 71045; 71275; 80048; 80053; 80076; 81003; 82803; 83880; 84484; 85025; 85379; 86140; 87040; 87205; 90686; 93005; 94640; 94660; 99285; A9270-GY; G0378; J0456; J0696; J1644; J2405; J2920; J2930; J3535; J7512; Q9967

== ENCOUNTER 2019-06-23 13:44 | Inpatient (IN) | payer MEDICARE ==
--- NOTE | 2019-06-23 14:02 | ED ---
Shortness of Breath - HPI Summary HPI Summary: Pt is a 73 y/o M w hx COPD presenting to the ED via EMS for a chief complaint of SOB that began on 06/23/19. Pt had a breathing treatment on EMS and had a nebulizer treatment on 06/23/19. Pt reports wheezing, productive cough, and a fever of 101 F. Pt uses oxygen at night, but not typically during the day. Pt has a PMHx of COPD and pneumonia one year ago. [place] [facility] [place] in the past. Denies CP, n/v/d. No reported hx PE or CHF. 88% on RA, now 94% on 2 L NC - History of Current Complaint Chief Complaint: EDShortnessOfBreath Time Seen by Provider: 06/23/19 13:46 Hx Obtained From: Patient Onset/Duration: Sudden Onset, Lasting Minutes, Still Present Current Severity: Moderate Dyspnea At: Rest Aggravating Factors: Movement Alleviating Factors: Nothing Associated Signs & Symptoms: Cough (Productive), Wheezing, Fever - 101 F, in vitals, 99.0 F - Allergy/Home Medications Allergies/Adverse Reactions: Allergies Allergy/AdvReac Type Severity Reaction Status Date / Time amoxicillin Allergy Rash Verified 06/23/19 13:56 hydrochlorothiazide Allergy Unknown Verified 06/23/19 13:56 Reaction Details oxycodone Allergy Difficulty Verified 06/23/19 13:56 Breathing Sulfa (Sulfonamide Allergy Shakes Verified 06/23/19 13:56 Antibiotics) Home Medications: Home Medications Hydrochlorothiazide TAB* [Hydrodiuril TAB*] 25 mg PO DAILY 06/23/19 [History Confirmed 06/23/19] Lisinopril TAB* [Prinivil TAB*] 20 mg PO DAILY 06/23/19 [History Confirmed 06/23] tiZANidine TAB* [Zanaflex TAB*] 2 mg PO TID PRN 06/23/19 [History Confirmed ] PMH/Surg Hx/FS Hx/Imm Hx Previously Healthy: Yes Endocrine/Hematology History: Reports: Hx Diabetes Denies: Hx Anticoagulant Therapy, Hx Blood Disorders, Hx Blood Transfusions, Hx Bone Marrow Disease, Hx Systemic Lupus Erythematosus, Hx Sickle Cell Disease , Hx Thyroid Disease, Hx Anemia, Hx Unexplained Bleeding, Other Endocrine/ Hematological Disorders Cardiovascular History: Reports: Hx Angina, Hx Hypercholesterolemia, Hx Hypertension, Hx Syncope Denies: Hx Aneurysm, Hx Angioplasty, Hx Auto Implanted Cardiovert Defib, Hx Cardiac Arrest, Hx Cardiomegaly, Hx Congenital Heart Disease, Hx Congestive Heart Failure, Hx Coronary Artery Disease, Hx Deep Vein Thrombosis, Hx Embolism , Hx Hypotension, Hx Pacemaker/ICD, Hx Peripheral Vascular Disease, Hx Rheumatic Fever, Hx Valvular Heart Disease, Other Cardiovascular Problems/ Disorders Respiratory History: Reports: Hx Chronic Obstructive Pulmonary Disease (COPD), Hx Sleep Apnea - 2L at night w/CPAP, Other Respiratory Problems/Disorders - copd , o2 2l at night Denies: Hx Asthma - copd, Hx Chronic Bronchitis, Hx Cystic Fibrosis, Hx Lung Cancer, Hx Pleural Effusion, Hx Pneumonia, Hx Pulmonary Edema, Hx Pulmonary Embolism, Hx Seasonal Allergies GI History: Denies: Hx Cirrhosis, Hx Crohn's Disease, Hx Diverticulosis, Hx Gall Bladder Disease, Hx Gastroesophageal Reflux Disease, Hx Gastrointestinal Bleed, Hx Hiatal Hernia, Hx Irritable Bowel, Hx Jaundice, Hx Obstructive Bowel, Hx Ileostomy, Hx Pyloric Stenosis, Hx Ulcer, Other GI Disorders History: Reports: Hx Benign Prostatic Hyperplasia, Hx Kidney Stones Denies: Hx Acute Renal Failure, Hx Chronic Renal Failure, Hx Dialysis, Hx Kidney Infection, Other Problems/Disorders Musculoskeletal History: Denies: Hx Arthritis, Hx Back Problems, Hx Bursitis, Hx Congenital Bone Abnormalities, Hx Fibromyalgia, Hx Gout, Hx Orthopedic Injury, Hx Osteoporosis, Hx Scoliosis, Hx Tendonitis, Other Musculoskeletal History Sensory History: Reports: Hx Contacts or Glasses Denies: Hx Cataracts, Hx Eye Injury, Hx Eye Prosthesis, Hx Glaucoma, Hx Legally Blind, Hx Macular Degeneration, Hx Vision Problem, Hx Deafness, Hx Hearing Aid, Hx Hearing Problem, Other Sensory Impairments Opthamlomology History: Reports: Hx Contacts or Glasses Denies: Hx Cataracts, Hx Eye Injury, Hx Eye Prosthesis, Hx Glaucoma, Hx Legally Blind, Hx Macular Degeneration, Hx Vision Problem, Other Sensory Impairments Neurological History: Reports: Other Neuro Impairments/Disorders - passed out a few times after coughing attack Denies: Hx Dementia, Hx Developmental Delay, Hx Headaches, Hx Migraine, Hx Nerve Disease, Hx Seizures, Hx Spinal Cord Injury, Hx Transient Ischemic Attacks (TIA) Psychiatric History: Denies: Hx Anxiety, Hx Attention Deficit Hyperactivity Disorder, Hx Autism, Hx Eating Disorder, Hx Oppositional Dimmit Disorder, Hx Depression, Hx Panic Disorder, Hx Post Traumatic Stress Disorder, Hx Inpatient Treatment, Hx Community Mental Health Tx, Hx Schizophrenia, Hx Bipolar Disorder, Hx Suicide Attempt, Hx of Violent Episodes Against Others, Hx Substance Abuse, Other Psychiatric Issues/Disorders - Cancer History Hx Hematologic Symptoms: No Hx Chemotherapy: No Hx Radiation Therapy: No Hx Palliative Cancer Treatment: No - Surgical History Surgical History: Yes Surgery Procedure, Year, and Place: APPY, KIDNEY STONE RETRIEVAL,FISTULA REPAIR Hx Anesthesia Reactions: No Infectious Disease History: No Infectious Disease History: Denies: Hx Clostridium Difficile, Hx Hepatitis, Hx Human Immunodeficiency Virus (HIV), Hx of Known/Suspected MRSA, Hx Shingles, Hx Tuberculosis, Hx Known/ Suspected VRE, Hx Known/Suspected VRSA, History Other Infectious Disease, Traveled Outside the [place] in Last 30 Days - Family History Known Family History: Positive: Hypertension Negative: Diabetes - Social History Occupation: Retired Lives: With Family Alcohol Use: Daily Alcohol Amount: pt states "a few shots of april a day" Hx Substance Use: No Substance Use Type: Reports: None Hx Tobacco Use: Yes - former smoker Smoking Status (MU): Former Smoker Type: Cigarettes Amount Used/How Often: 1-2 cigarettes/day Have You Smoked in the Last Year: Yes Review of Systems Positive: Fever - 101 F, in vitals, 99.0 F Positive: Shortness Of Breath, Cough - Productive, Other - Positive wheezing All Other Systems Reviewed And Are Negative: Yes Physical Exam - Summary Physical Exam Summary: Constitutional: Well-developed, Well-nourished, Alert. (-) Distressed Skin: Warm, Dry HENT: Normocephalic; Atraumatic Eyes: Conjunctiva normal Neck: Musculoskeletal ROM normal neck. (-) JVD, (-) Stridor, (-) Nuchal rigidity Cardio: Rhythm regular, rate normal, Heart sounds normal; Intact distal pulses; Radial pulses are 2+ and symmetric. (-) Murmur Pulmonary/Chest wall: Increased work with breathing, bilateral wheezes right greater than left, accessory muscle use Abd: Soft, (-) tenderness, (-) Distension, (-) Guarding, (-) Rebound Musculoskeletal: (-) Edema Lymph: (-) Cervical adenopathy Neuro: Alert, Oriented x3 Psych: Mood and affect Normal Triage Information Reviewed: Yes Vital Signs On Initial Exam: Initial Vitals Temp Pulse Resp BP Pulse Ox 99.0 F 88 16 176/87 96 06/23/19 13:45 06/23/19 13:45 06/23/19 13:45 06/23/19 13:45 06/23/19 13:45 Vital Signs Reviewed: Yes Procedures - Procedure Summary Procedure Summary: US IV Ultrasound Guided Peripheral IV Procedure Note Indication: Unable to obtain adequate IV access Skin Prep:Chlorhexidine Sterile Prep (allowed to dry for thirty seconds) Sterility: Gloves Insertion: Appropriate time out was taken. Ultrasound guidance was utilized for vein selection, to document selected vessel patency and real time ultrasound visualization of vascular needle entry into venous lumen. Insertion Site:L forearm Type of catheter:18 gauge catheter Blood return:yes Saline lock: yes Post Procedure: Estimated blood loss: minimal - Sedation Patient Received Moderate/Deep Sedation with Procedure: No Diagnostics - Vital Signs Vital Signs Temp Pulse Resp BP Pulse Ox 06/23/19 13:45 99.0 F 88 16 176/87 96 - Laboratory Result Diagrams: 06/23/19 14:08 06/23/19 14:08 Lab Statement: Any lab studies that have been ordered have been reviewed, and results considered in the medical decision making process. - Radiology Chest X-ray Radiology Interpretation Completed By: Radiologist Summary of Radiographic Findings: Chest X-ray IMPRESSION: #. Stigmata of obstructive lung disease. No acute pulmonary or cardiac process evident. Reviewed by ED physician. - EKG 14:01 Cardiac Rate: NL - 89 BPM EKG Rhythm: Sinus Rhythm ST Segment: Normal Ectopy: None Summary of EKG Findings: EKG at 14:01 reveals 89 BPM with normal sinus rhythm, RBBB which is old compared to 05/14/13, T wave inversions in V1-V6, unchanged. Reviewed and interpreted by ED physician. Re-Evaluation - Re-Evaluation First Eval Re-Evaluation Time: 15:30 Change: Improved - feeling better, resting, CXR w ? RUL PNA. Given azithro and ceftriaxone. LA elevated. Given NS bolus x1 here. BP stable. Course/Dx - Course Course Of Treatment: 73 y/o male w hx COPD p/w SOB. - Shortness of breath ddx: Most likely COPD versus pneumonia. Patient reports fever increased cough and work of breathing. We'll give 1 DuoNeb here we'll cover for pneumonia with ceftriaxone and azithro. Check chest x-ray. Also consider: PTX - breath sounds equal, no risk factors for PTX, CXR w/o e/o PTX. ACS - no CP, no EKG changes, initial trop not elevated. Low suspicion. CHF - no h/o CHF, BNP slightly elevated. No pulm edema on CXR. PE - no risk factors for PE, no unilateral leg swelling - Diagnoses Differential Diagnosis/HQI/PQRI: Positive: Asthma, COPD Exacerbation, CA, Pneumonia Provider Diagnoses: COPD exacerbation Discharge ED - Sign-Out/Discharge Documenting (check all that apply): Patient Departure - Admit - Discharge Plan Condition: Stable Disposition: ADMITTED TO [facility] Referrals: Lluvia Stevens INSURANCE FOLLOW UP REP [Primary Care Provider] - - Billing Disposition and Condition Condition: STABLE Disposition: Admitted to [facility] - Attestation Statements Document Initiated by Kadi: Yes Documenting Scribe: Leni Burns Provider For Whom Kadi is Documenting (Include Credential): Noemí Arciniega MD Scribe Attestation: Leni Alberto, scribed for Noemí Arciniega MD on 06/23/19 at 1550. Scribe Documentation Reviewed: Yes Provider Attestation: The documentation as recorded by the Leni nuñez accurately reflects the service I personally performed and the decisions made by Noemí matias MD Status of Scribe Document: Viewed Consult Consult: At 15:09, Dr. Delgado agrees to admit the pt to [facility] with a diagnosis of COPD exacerbation.
[2019-06-23] MEDS ORDERED: Albuterol/Ipratropium NEB.SOL* Albuterol 2.5 MG/Ipratropium 0.5 MG 3 ML INH ONE (14:20)
[2019-06-23 14:24] LABS: ABS Lymphocytes 0.8 10^3/ul (1.0-4.8); ABS Monocytes 0.7 10^3/ul (0-0.8); ABS Neutrophils 9.7 10^3/ul (1.5-7.7); Eosinophil % 0.1 %; Hematocrit 47 % (42-52); Hemoglobin 15.8 g/dL (14.0-18.0); Lymphocyte % 7.5 %; Mean Corpuscular HGB Conc 34 g/dL (31-36); Mean Corpuscular Hemoglobin 33 pg (27-31); Mean Corpuscular Volume 98 fL (80-94); Mean Platelet Volume 8.2 fL (7.4-10.4); Nucleated Red Blood Cells % 0.1; Platelet Count 143 10^3/uL (150-450); Red Blood Count 4.81 10^6 /uL (4.18-5.48); Red Cell Distribution Width 14 % (10-15); White Blood Count 11.2 10^3/uL (3.5-10.8)
[2019-06-23 14:39] LABS: Albumin 4.7 g/dL (3.2-5.2); Albumin/Globulin Ratio 1.7 (1-3); BUN/Creatinine Ratio 16.5 (8-20); Calcium 9.8 mg/dL (8.6-10.3); EGFR African American 80.7 (>60); EGFR Non-African American 66.7 (>60); Globulin 2.8 g/dL (2-4); Potassium 3.8 mmol/L (3.5-5.0); Total Bilirubin 0.8 mg/dL (0.2-1.0); Total Protein 7.5 g/dL (6.4-8.9)
[2019-06-23] MEDS ORDERED: Azithromycin 500 mg/250 ml NS 500 MG/250 ML BAG IVPB ONE (14:48)
[2019-06-23] MEDS ORDERED: cefTRIAXone(*) 1 GM in NS 0.9% 50 ML* 50 ML IVPB ONE (14:48)
[2019-06-23] MEDS ORDERED: NS 0.9% 1000 ML** 1,000 ML IV ONE (14:48)
[2019-06-23] MEDS ORDERED: Albuterol/Ipratropium NEB.SOL* Albuterol 2.5 MG/Ipratropium 0.5 MG 3 ML INH PRN (16:49)
[2019-06-23] MEDS ORDERED: NS 0.9% 1000 ML** 1,000 ML IV SCH (17:00)
[2019-06-23] MEDS ORDERED: tiZANidine TAB* 2 MG PO PRN (17:20)
[2019-06-23 17:49] LABS: C Reactive Protein 9.02 mg/L (<8.01); Magnesium 1.9 mg/dL (1.9-2.7)
[2019-06-23] MEDS: predniSONE TAB* 20 MG PO SCH (18:34)
[2019-06-23] MEDS: Enoxaparin(*) 40 MG/0.4 ML SYR SUBCUT SCH (18:35)
[2019-06-23] MEDS: Tamsulosin CAP* 0.4 MG PO SCH (18:35)
--- NOTE | 2019-06-23 18:47 | HP ---
History of Present Illness - History of Present Illness Reason for Visit: Shortness of Breath History of Present Illness: 73 y/o male with history of COPD on night time O2 and Bipap only, presented with increasing SOB and fever. He had recent admission 1 month ago for COPD exacerbation. After discharge, he still had on and off SOB but doesn't need any daytime O2. Today, he had increasing SOB at rest for which he needs O2, and also he had chills and objective fever with T 101F on ambulance, therefore he came to hospital ED. He also reported watery diarrhea for a couple of weeks. He was compliant with medication,O2 treatment and Bipap machine. He denied CP, palpitation, N/V, no recent change in medication since last discharge. No sick contact. In ED, one dose of ceftriaxone and azithromycin was given. 1L NS bolus was given. - Past Medical History Past Medical History: 1.Obesity 2.COPD, recent admission for COPD exacerbation in Sep, had oxygen at home, but used only at night 3.T2DM on insulin 4. HTN 5. HLD 6. BPH 7. Obstructive sleep apnea, on BiPAP with numbers of 15/11 and 2L O2 at bedtime 8. Nephrolithiasis - Past Surgical History Past Surgical History: 1. Status post appendectomy 2. Vasectomy 3. Perianal fissure and fistula repair - Past Family History Past Family History: Father had colon cancer and diabetes, of heart disease in 70s. Mother from motor vehicle collision. - Past Social History Past Social History: Patient has history of smoking 1 pack per day since the age of 18. He denied any alcohol or drug use. Review of Systems - Review of Systems Constitutional: Positive: Fever Eyes: Negative: Pain, Vision Change, Conjunctivae Inflammation, Eyelid Inflammation, Redness, Other ENT: Positive: Throat Pain Respiratory: Positive: Shortness of Breath Cardiovascular: Negative: Chest Pain, Palpitations, Orthopnea, Paroxysmal Noc. Dyspnea, Edema, Light Headedness, Other Gastrointestinal: Negative: Nausea, Vomiting, Abdominal Pain, Diarrhea, Constipation, Melena, Hematochezia, Other Genitourinary: Negative: Dysuria, Frequency, Incontinence, Hematuria, Retention , Other Musculoskeletal: Negative: Neck Pain, Shoulder Pain, Arm Pain, Back Pain, Hand Pain, Leg Pain, Foot Pain, Other Skin: Negative: Rash, Lesions, Hitesh, Bruising, Other Neurological: Negative: Weakness, Numbness, Incoordination, Change in Speech, Confusion, Seizures, Other - Medications/Allergies Allergies/Adverse Reactions: Allergies Allergy/AdvReac Type Severity Reaction Status Date / Time amoxicillin Allergy Rash Verified 06/23/19 13:56 hydrochlorothiazide Allergy Unknown Verified 06/23/19 13:56 Reaction Details oxycodone Allergy Difficulty Verified 06/23/19 13:56 Breathing Sulfa (Sulfonamide Allergy Shakes Verified 06/23/19 13:56 Antibiotics) Medications: Home medication Aspirin (Aspirin Ec Tab*) 81 mg PO DAILY [facility] Albuterol HFA inhaler 2 puff inh Q4h Albuterol sulfate vial neb 2.5mg inh QID Atenolol (Tenormin Tab*) 25 mg PO BID [facility] Hydrochlorothiazide 25mg Tab po daily Insulin glargine 40U daily Iprotropium neb 0.5mg inh tid Fluticasone/Vilanterol (Breo Ellipta Mdi 100/25(Nf)) 1 puff INH DAILY [facility] Lisinopril (Prinivil Tab*) 20 mg PO DAILY [facility] Magnesium Oxide (Magox 400 Tab*) 400 mg PO DAILY [facility] Multivitamins/Minerals (Theragran/Minerals Tab*) 1 tab PO DAILY [facility] Simvastatin (Zocor(Nf)) 10 mg PO BEDTIME [facility] Tamsulosin HCl (Flomax Cap*) 0.4 mg PO QPM [facility] Last Admin: 06/23/19 18:35 Dose: 0.4 mg Tizanidine HCl (Zanaflex Tab*) 2 mg PO TID PRN PRN Reason: SPASMS - MUSCLE Umeclidinium [place] (Incruse Ellipta Mdi (Nf)) inh INH DAILY [facility] Exam Vital Signs: Vital Signs (72 hours) 06/23/19 06/23/19 06/23/19 13:45 13:53 13:54 Temperature 99.0 F Pulse Rate 88 92 91 Respiratory 16 18 29 Rate Blood Pressure 176/87 164/115 (mmHg) O2 Sat by Pulse 96 89 94 Oximetry 06/23/19 06/23/19 06/23/19 14:00 14:20 15:00 Temperature Pulse Rate 84 Respiratory 34 18 32 Rate Blood Pressure (mmHg) O2 Sat by Pulse 99 Oximetry 10/22/19 10/22/19 10/22/19 16:00 17:00 18:08 Temperature Pulse Rate 91 Respiratory 23 20 24 Rate Blood Pressure 145/79 (mmHg) O2 Sat by Pulse 94 Oximetry 06/23/19 18:24 Temperature 99.2 F Pulse Rate 104 Respiratory 22 Rate Blood Pressure 145/79 (mmHg) O2 Sat by Pulse 95 Oximetry Exam: GENERAL: Sitting up in bed, interactive, pleasant, in no apparent distress. VITAL SIGNS: In the emergency room; blood pressure 176/87, heart rate is 92, respiratory rate is 16, he is 95% on 2L, his T-max is 99.2. HEENT: tonsils not enlarged, erythematous pharynx NECK: Non-elevated JVD. He has no cervical or supraclavicular lymphadenopathy. LUNGS: scattered wheezing on anterior chest, clear on posterior chest HEART: regular rate and rhythm, no murmur ABDOMEN: tenderness over bilateral upper quadrant, more prominent on LUQ, mild hepatomegaly EXTREMITIES: Warm and well perfused without clubbing, cyanosis, or edema. He has less than 2 second cap refill. NEUROLOGIC: alert, oriented x3 Assessment/Plan - Assessment/Plan Assessment: Labs: TW 11.2, Hb15.8, plt 143 lactic acid 2.4-> come down to 1.4 with hydration AST 41, ALT 59 CRP 9.02 BNP 165 CXR: normal 73 yo male with history of COPD on nighttime 2L O2 presented with SOB and fever after weeks of diarrhea, found to have elevated TW, elavated lactic acid, and mild transaminitis. He is definitely having COPD exacerbation probably triggered by viral URTI, based on increasing SOB, increasing O2 requirement. In terms of fever, with elevated TW, mild transaminitis, elevated lactic acid, I am not sure about the cause at this moment, this could be due to viral URTI, but definitely need to look into abdominal source of infection with history of ongoing diarrhea. Plan: 1. Dyspnea. Meets criteria for COPD exacerbation. Pt with asymmetric leg swelling - possible that PE could be causing recent COPD exacerbations. Also reports worsening edema since DC of HCTZ earlier this year, so could have component of fluid overload. Currently without signs of infection here ( although with possible fever prior to arrival). - start po pred 40mg for 4 days - nebulizer prn - monitor closely for signs of infection - give furosemide and monitor UOP, Is & Os, daily weights - continue night time Bipap - keep SpO2 88-92% 2. Fever - not sure source, likely due to viral URTI, but abdominal source definitely needs to be ruled out with ongoing diarrhea and upper quadrant tenderness on exam - US abdomen to look for any infective sources - watch fever - not meeting sepsis criteria - i am not going to start abx since viral URTI still most likely in this case 3. Diarrhea - ongoing for weeks - send stool cs, stool cdiff - may need further workup if above neg 4. DVT prophylaxis - sc lovenox Attestation Documenting Resident: Clement Supervising Physician: Lula Attestation: This service has been performed in part by a resident under the direction of a teaching physician.I, Lula, performed the service, or was physically present during the critical, or box portions of the service, furnished by the resident. I participated in the management of the patient.
[2019-06-23] MEDS: Atenolol TAB* 25 MG PO SCH (20:21)
[2019-06-23] MEDS: Atorvastatin* 10 MG TAB PO SCH (20:21)
[2019-06-23] MEDS: Insulin LISPRO* 1 UNITS UNIT SUBCUT SCH (20:30)
[2019-06-23 21:44] LABS: Urine Appearance Clear; Urine Bacteria Absent (Absent); Urine Bilirubin Negative (Negative); Urine Blood 3+ (Negative); Urine Color Yellow; Urine Glucose Negative (Negative); Urine Ketones Negative (Negative); Urine Nitrite Negative (Negative); Urine Protein Negative (Negative); Urine Red Blood Cell 3+(>10/hpf) (Absent); Urine Urobilinogen Negative (Negative); Urine White Blood Cell Trace(0-5/hpf) (Absent)
[2019-06-24] MEDS: Mometasone/Formoter 100/5 MDI INH SCH ×2 (08:02→19:47)
[2019-06-24] MEDS: SPIRIVA Respimat* (tiotropium) 2.5 mcg/inh Inhaler INH SCH (08:02)
[2019-06-24] MEDS: predniSONE TAB* 20 MG PO SCH (08:32)
[2019-06-24] MEDS: Lisinopril TAB* 10 MG PO SCH (08:32)
[2019-06-24] MEDS: Insulin LISPRO* 1 UNITS UNIT SUBCUT SCH ×4 (08:33→21:20)
[2019-06-24] MEDS: Multivitamins/Minerals TAB PO SCH (08:33)
[2019-06-24] MEDS: Aspirin EC TAB* 81 MG TAB.EC PO SCH (08:33)
[2019-06-24] MEDS: Atenolol TAB* 25 MG PO SCH ×2 (08:33→21:23)
[2019-06-24] MEDS: Magnesium Oxide TAB* 400 MG PO SCH (08:33)
[2019-06-24] MEDS: Insulin GLARGINE(*) 1 UNITS UNIT SUBCUT SCH (08:34)
--- NOTE | 2019-06-24 09:52 | PN ---
Subjective Date of Service: 06/24/19 Interval History: Patient felt SOB resolving. No fever overnight, Tmax 99. He felt more swollen today. Objective Active Medications: Albuterol/Ipratropium (Duoneb (Albuterol 2.5 Mg/Ipratropium 0.5 Mg)) 1 neb INH [id number] AWAKE PRN PRN Reason: sob/wheexing Aspirin (Aspirin Ec Tab*) 81 mg PO DAILY [facility] Last Admin: 06/24/19 08:33 Dose: 81 mg Atenolol (Tenormin Tab*) 25 mg PO BID [facility] Last Admin: 06/24/19 08:33 Dose: 25 mg Atorvastatin Calcium (Lipitor*) 5 mg PO BEDTIME [facility] Last Admin: 06/23/19 20:21 Dose: 5 mg Enoxaparin Sodium (Lovenox(*)) 40 mg SUBCUT Q24H [facility] Last Admin: 06/23/19 18:35 Dose: 40 mg Insulin Glargine (Lantus(*)) 40 units SUBCUT DAILY [facility] Last Admin: 06/24/19 08:34 Dose: 40 units Insulin Human Lispro (Humalog*) 0 units SUBCUT ACHS [facility]; Protocol Last Admin: 06/24/19 08:33 Dose: 2 units Lisinopril (Prinivil Tab*) 20 mg PO DAILY [facility] Last Admin: 06/24/19 08:32 Dose: 20 mg Magnesium Oxide (Magox 400 Tab*) 400 mg PO DAILY [facility] Last Admin: 06/24/19 08:33 Dose: 400 mg Mometasone Furoate/Formoterol Fumar (Dulera 100/5 Mdi*) 2 puff INH BID [facility] Last Admin: 06/24/19 08:02 Dose: 2 puff Multivitamins/Minerals (Theragran/Minerals Tab*) 1 tab PO DAILY [facility] Last Admin: 06/24/19 08:33 Dose: 1 tab Prednisone (Deltasone Tab*) 40 mg PO DAILY [facility] Stop: 06/27/19 17:59 Last Admin: 06/24/19 08:32 Dose: 40 mg Tamsulosin HCl (Flomax Cap*) 0.4 mg PO QPM [facility] Last Admin: 06/23/19 18:35 Dose: 0.4 mg Tiotropium [place] (Spiriva Respimat 2.5 Mcg) 2 puff INH DAILY [facility] Last Admin: 06/24/19 08:02 Dose: 2 puff Tizanidine HCl (Zanaflex Tab*) 2 mg PO TID PRN PRN Reason: SPASMS - MUSCLE Vital Signs - 8 hr 06/24/19 06/24/19 06/24/19 03:38 07:15 08:04 Temperature 97.2 F 97.6 F Pulse Rate 65 66 67 Respiratory 18 24 15 Rate Blood Pressure 137/56 141/81 (mmHg) O2 Sat by Pulse 96 97 97 Oximetry Oxygen Devices in Use Now: Nasal Cannula Exam: GEN: NAD, no fever, chills, obese habitus HEENT: large neck circumference. HEART: S1S2, no murmur Lung: no rhonichi, no crackles Abdomen: soft, non tender Extremity:pedal edema, right calf circumference> left calf circumference Result Diagrams: 06/23/19 14:08 06/24/19 12:11 Assess/Plan/Problems-Billing Assessment: 73 y/o male with history of COPD, CHF, presented with worsening SOB and fever, found to have COPD exacerbation with possible CHF exacerbation, while the cause of fever is still unclear at this moment. - Patient Problems (1) COPD exacerbation Current Visit: Yes Status: Acute Code(s): J44.1 - CHRONIC OBSTRUCTIVE PULMONARY DISEASE W (ACUTE) EXACERBATION SNOMED Code(s): 669207548 Comment: - diagnosis made based on increasing SOB, increasing O2 requirement - po pred for 4 days. - continue albuterol/ipratropium Q4h prn - continue LABA/ICS and LAMA he is already on - wean off O2 today, keep spO2 88-92% (2) Diarrhea Current Visit: Yes Status: Acute Code(s): R19.7 - DIARRHEA, UNSPECIFIED SNOMED Code(s): 60077848 Comment: - will trace stool c/s - not likely infected - no diarrhea since admission (3) Transaminitis Current Visit: Yes Status: Acute Code(s): R74.0 - NONSPEC ELEV OF LEVELS OF TRANSAMNS & LACTIC ACID DEHYDRGNSE SNOMED Code(s): 990553100 Comment: - mild transaminitis, causes unclear, could be cystic liver disease , could be CORREA - US abdomen sepated cysts and hepatomegaly found, exisiting previously - will repeat liver function today (4) Nephrolithiasis Current Visit: Yes Status: Acute Code(s): N20.0 - CALCULUS OF KIDNEY SNOMED Code(s): 99633160 Comment: - noted non obstructive nephrolithasis showing on US - microscopic hematuria, positive leukocyte esterase, trace WBC in Urianalysis; not convincing for UTI though he does have burning urinary pain. - tracing urine cs result. - consider abx treatment if fever recurs (5) DVT prophylaxis Current Visit: No Status: Acute Priority: High Code(s): CFS1494 - SNOMED Code(s): 253575003 Comment: - SQ LOVENOX Status and Disposition: Inpatient Medicine. Consider discharge if workup completed and doesn't require O2. Attestation Documenting Resident: Maile Vaughan Supervising Physician: Camilla Cotton Attestation: This service has been performed in part by a resident under the direction of a teaching physician.I, Camilla Cotton, performed the service, or was physically present during the critical, or box portions of the service, furnished by the resident. I participated in the management of the patient.
[2019-06-24] MEDS ORDERED: Furosemide IV* 10 MG/ML VIAL (40 MG) IV ONE (11:27)
[2019-06-24 13:07] LABS: Albumin 4.3 g/dL (3.2-5.2); Albumin/Globulin Ratio 1.6 (1-3); Globulin 2.7 g/dL (2-4); Indirect Bilirubin 0.5 mg/dL (0.3-1.0); Total Bilirubin 0.7 mg/dL (0.2-1.0)
[2019-06-24] MEDS ORDERED: Perflutren Lipid Microsphere* 3 ML VIAL ONE (13:47)
[2019-06-24 13:53] LABS: BUN/Creatinine Ratio 17.4 (8-20); Calcium 9.4 mg/dL (8.6-10.3); EGFR African American 98.1 (>60); EGFR Non-African American 81.1 (>60); Potassium 4.1 mmol/L (3.5-5.0)
--- NOTE | 2019-06-24 16:13 | ECHO ---
*[facility]* [place] [address] Fax #: [phone] Transthoracic Echocardiogram Patient: Brandan Taylor : 1945 Study Date: 06/24/2019 Age: 73 Gender: M HR: 70 bpm Height: 72 in /182.9 cm BSA: 2.54 m^2 Weight: 301.4 lb /137 kg BMI: 41 kg/m^2 *Scrap Carrier: * Leni Cook [facility] *Referring Physician: * Maile Vaughan *Reading Physician: * Shannan Duenas MD Indications: Congestive Heart Failure. History: Dyspnea. Congestive heart failure. Chronic obstructive pulmonary disease. Risk factors: Current tobacco use. Hypertension. Diabetes mellitus. Dyslipidemia. Conclusions Summary: - Procedure narrative: Image quality was poor. - Left ventricle: Wall thickness is mildly increased. Systolic function is normal. The estimated ejection fraction is 55-60%. - Right ventricle: The cavity size is mildly dilated. Wall thickness is mildly increased. Systolic function is normal. - All valves show grossly normal function. - Aorta: The ascending aorta internal dimension in the A-P direction, maximal systolic dimension is 3.8 cm. - Ascending aorta: The ascending aorta is mildly dilated. - Compared with prior echocardiogram of 11/14/18, left ventricular hypertrophy previously moderate, ejection fraction stable. Otherewise stable. Study data: Transthoracic echocardiogram. Procedure: Transthoracic echocardiography was performed. Image quality was poor. Intravenous Definity , 2.5 mlswas administered. Complete 2D, spectral Doppler, and color flow Doppler. Location: Bedside. Patient status: Inpatient. Patient room number: 408. Rhythm: Normal sinus rhythm. Findings Left ventricle: The cavity size is normal. Wall thickness is mildly increased. Systolic function is normal. The estimated ejection fraction is 55-60%. Although no diagnostic regional wall motion abnormality is identified, this possibility cannot be completely excluded on the basis of this study. There is no consistent Doppler evidence of clinically significant diastolic dysfunction. Right ventricle: The cavity size is mildly dilated. Wall thickness is mildly increased. Systolic function is normal. Left atrium: Not well visualized. Right atrium: The atrium is moderately dilated. Mitral valve: Not well visualized. The leaflets are normal thickness. There is no evidence of stenosis. There is no significant regurgitation. Aortic valve: Not well visualized. The leaflets are normal thickness. There is no evidence of stenosis. There is no significant regurgitation. Tricuspid valve: Not well visualized. The leaflets are normal thickness. There is no evidence of stenosis. There is no significant regurgitation. Pulmonic valve: Not well visualized. There is no significant regurgitation. Aorta: Aortic root: The aortic root is mildly dilated. Ascending aorta: The ascending aorta is mildly dilated. Pericardium: A prominent pericardial fat pad is present. There is no significant pericardial effusion. Pulmonary arteries: Not well visualized. Systolic pressure can not be accurately estimated. Systemic veins: Inferior vena cava: Not well visualized. Measurements Left ventricle Value Ref Right atrium continued Value Ref LILIYA, LAX 5.2 cm 4.2 - 5.8 ML dim, ES, A4C (H) 5.0 cm 2.6 - 4.4 ESD, LAX (H) 4.1 cm 2.5 - 4.0 Estimated RAP 8 mm Hg --------- FS, LAX (L) 22 % 25 - 43 PW, ED, LAX (H) 1.3 cm 0.6 - 1.0 Aortic valve Value Ref EF (L) 43 % 52 - 72 Sarah Beth diam, ED 2.6 cm --------- E', lat sarah beth, (L) 5.1 cm/sec >=10.0 Peak v, S 1.47 m/sec ----- ---- TDI VTI, S 28.1 cm --------- E/e', lat sarah beth, 16 Mean grad, S 4.0 mm Hg -------- - TDI Peak grad, S 9.0 mm Hg --------- E', med sarah beth, 7.1 cm/sec >=7.0 TDI Mitral valve Value Ref E/e', med sarah beth, 12 Peak E 0.84 m/sec -------- - TDI Peak A 0.77 m/sec --------- E', avg, TDI 6.1 cm/sec Decel time 219 ms -------- - E/e', avg, TDI 14 <=14 Peak grad, D 2.8 mm Hg ----- ---- Peak E/A ratio 1.1 --------- LVOT Value Ref Peak asya, S 1.21 m/sec Pulmonic valve Value Ref Peak grad, S 6 mm Hg Peak v, S 0.57 m/sec --------- Mean grad, S 3 mm Hg Peak grad, S 1.0 mm Hg --------- Ventricular septum Value Ref Aortic root Value Ref IVS, ED (H) 1.2 cm 0.6 - 1.0 Root diam 3.7 cm <4.5 Right ventricle Value Ref Ascending aorta Value Ref LILIYA, LAX 2.9 cm AAo AP diam, S 3.8 cm --------- LILIYA minor ax, (H) 4.3 cm 1.9 - 3.5 A4C mid Decending aorta Value Ref Neftali peak asya 0.42 m/sec --------- Left atrium Value Ref AP dim, ES 3.90 cm 3.00 - 4.00 Right atrium Value Ref SI dim, ES (H) 6.4 cm 3.4 - 5.3 Legend: (L) and (H) yanna values outside specified reference range. Prepared and electronically signed by Shannan Duenas MD 06/24/2019 16:12
--- NOTE | 2019-06-24 16:36 | PN ---
Hospitalist Progress Note Date of Service: 06/24/19 S: Pt reports not sleeping well during the night due to frequent urination, following this becomes SOB due to exertion. Pt continues to feel SOB but denies fever/chills. Pt states he is feeling better than time of admittance and has had a normal BM and has urinated c/s dysuria after started on furosemide 20mg PO daily. Pt denies palpitations, N/V, increased swelling of extremities, numbness/tingling in extremities. O: Temp Pulse Resp BP Pulse Ox 97.8 F 70 24 167/85 95 06/24/19 11:44 06/24/19 11:44 06/24/19 11:44 06/24/19 11:44 06/24/19 11:44 General: Pt is an obese M sitting up in bed in no acute distress on 2L nasal canula. Cardio: RRR. No MRG. Pulmonary: Exipratory wheezes, anterior>posterior. No rhales, rhonchi. Abdominal: Nontender to palpation. Normal bowel sounds. No rebounding, or guarding. Extremities: BL pedal edema present, more pronounced on RLE. Peripheral pulses 2 + on UE and LE. A: 73 yo M c/ Mhx of COPD, HFpEF , HTN, MYRON, DM type II presented c/ SOB, leukocytosis, and dsyuria. No fever or signs of PNA. UTI r/u c/ negative urine cx. P: #SOB -continue tx for COPD exacerbation. Mometasone Furoate/Formoterol Fumar (Dulera 100/5 Mdi*) 2 puff INH BID DEBORA Albuterol/Ipratropium (Duoneb (Albuterol 2.5 Mg/Ipratropium 0.5 Mg)) 1 neb INH [id number] AWAKE PRN Prednisone (Deltasone Tab*) 40 mg PO DAILY DEBORA Tiotropium Sterling (Spiriva Respimat 2.5 Mcg) 2 puff INH DAILY DEBORA -PE ruled out c/ negative D-dimer and US doppler of RLE. -PNA ruled out c/ negative CXR and no signs of infection. -possible fluid overloaded due to HFpEF, continue furosemide 20mg PO daily. Monitor Is & Os. Continue to monitor LE edema. Echo showed no significant ventricle or valve insufficiencies. EF of 55-60%. -continue respiratory drive protocol c/ goal O2 (88-92%) -ambulatory O2 showed O2 79% post-ambulation, 91% at rest on RA. Will keep overnight. Continue to monitor O2 sat. #Dysuria -resolved -urine cx negative, UTI unlikely #Transaminitis -resolved after repeat LFT #DM type II -monitor BG
[2019-06-24] MEDS ORDERED: Furosemide IV* 10 MG/ML 2 ML VIAL (20 MG) IV ONE (17:21)
[2019-06-24] MEDS: Enoxaparin(*) 40 MG/0.4 ML SYR SUBCUT SCH (18:25)
[2019-06-24] MEDS: Tamsulosin CAP* 0.4 MG PO SCH (18:25)
[2019-06-24] MEDS: Atorvastatin* 10 MG TAB PO SCH (21:22)
[2019-06-25] MEDS: SPIRIVA Respimat* (tiotropium) 2.5 mcg/inh Inhaler INH SCH (08:00)
[2019-06-25] MEDS: Mometasone/Formoter 100/5 MDI INH SCH (08:01)
[2019-06-25] MEDS: Insulin LISPRO* 1 UNITS UNIT SUBCUT SCH ×2 (08:30→12:15)
[2019-06-25] MEDS ORDERED: Furosemide TAB* 20 MG PO SCH (09:00)
[2019-06-25] MEDS: Insulin GLARGINE(*) 1 UNITS UNIT SUBCUT SCH (09:18)
[2019-06-25] MEDS: Lisinopril TAB* 10 MG PO SCH (09:18)
[2019-06-25] MEDS: predniSONE TAB* 20 MG PO SCH (09:18)
[2019-06-25] MEDS: Magnesium Oxide TAB* 400 MG PO SCH (09:18)
[2019-06-25] MEDS: Atenolol TAB* 25 MG PO SCH (09:18)
[2019-06-25] MEDS: Multivitamins/Minerals TAB PO SCH (09:18)
[2019-06-25] MEDS: Aspirin EC TAB* 81 MG TAB.EC PO SCH (09:18)
[2019-06-25 09:35] LABS: BUN/Creatinine Ratio 17.4 (8-20); Calcium 9.7 mg/dL (8.6-10.3); EGFR African American 80.7 (>60); EGFR Non-African American 66.7 (>60); Magnesium 2.1 mg/dL (1.9-2.7); Potassium 4.3 mmol/L (3.5-5.0)
[2019-06-25 12:36] VITALS: BP 137/86
--- NOTE | 2019-06-25 17:03 | DS ---
CC: Lluvia Stevens NP* DISCHARGE SUMMARY: DATE OF ADMISSION: 06/23/19 DATE OF DISCHARGE: 06/25/19 PRIMARY CARE PROVIDER: Lluvia Stevens NP PRIMARY DIAGNOSIS: Chronic obstructive pulmonary disease exacerbation. SECONDARY DIAGNOSES: 1. Type 2 diabetes, on insulin. 2. Hypertension. 3. Obesity. 4. Obstructive sleep apnea, on BiPAP. 5. Nephrolithiasis. DISCHARGE MEDICATIONS: 1. Furosemide 20 mg daily. 2. Prednisone 40 mg for 2 more days. 3. Breo Ellipta 1 puff daily. 4. Incruse Ellipta 1 inhalation daily. 5. Insulin glargine 40 units daily. 6. Aspirin 81 mg daily. 7. Simvastatin 10 mg nightly. 8. Atenolol 25 mg twice a day. 9. Tizanidine 2 mg 3 times a day as needed. 10. Magnesium oxide 400 mg daily. 11. Atrovent nebulizer 3 times a day as needed for shortness of breath. 12. Lisinopril 20 mg daily. 13. Tamsulosin 0.4 mg daily. 14. Multivitamin 1 tablet daily. HISTORY OF PRESENT ILLNESS: Mr. Taylor is a 73-year-old man with COPD; MYRON, on BiPAP with nocturnal oxygen; diabetes, on insulin; obesity; heart failure with preserved ejection fraction, who presents with increasing shortness of breath and fever. One month ago, the patient was admitted for COPD exacerbation. After discharge, he still had intermittent dyspnea, but still did not require daytime supplemental oxygen. On day of presentation, he experienced increased shortness of breath at rest for which he needed supplemental oxygen. He also had chills and fever, so for this reason he called the ambulance to bring him to the hospital. In the ambulance, he was noted to have a fever of 101. The patient also reports watery diarrhea for the last couple of weeks. He denies missed doses of medications. He takes his BiPAP machine every night. He denies chest pain, palpitation, nausea, vomiting, or recent changes in medication since last discharge. HOSPITAL COURSE: In the emergency room, the patient was noted to be hypoxic on room air. He was given a dose of ceftriaxone and azithromycin and had to be admitted to Medicine. He was also given a liter of normal saline. Upon admission to the floor, the patient did not appear to have further infectious symptoms. He did not have a fever measured during this hospitalization. He did not have increased sputum production, and his chest x-ray was without concern for pneumonia. On exam, the patient had wheeze diffusely without focal abnormalities, so he was treated for COPD exacerbation, but his antibiotics were not continued. Given his lower extremity edema, it was thought that volume overload also played a role in his shortness of breath and hypoxia, so he was given IV diuretics with significant urine output and improvement in his symptoms. The patient did have asymmetric swelling of his lower extremities, so there was concern for lower extremity DVT, and if this was a PE, could explain his frequent COPD exacerbations; however, a D- dimer was negative and a venous Doppler study performed in the right lower extremity was without evidence of DVT. The patient had a repeat echocardiogram which was a poor quality image. He did have LV wall thickness mildly increased. His systolic function was normal. There was no consistent Doppler evidence of clinically significant diastolic dysfunction. The patient had reported being on hydrochlorothiazide up until October of this year when it was discontinued for hypomagnesia, for which he now takes oral magnesium supplement. He reports since discontinuation of this medication he has been experiencing water retention and feels like he has been progressively more "swollen." Also of note , the patient did report dysuria on admission, a symptom which has self resolved. Urine culture was checked and showed less than 100,000 CFU of Staphylococcus epidermidis. By day of discharge, a 10-point review of systems was performed and significant only for mild shortness of breath on exertion. The patient denies orthopnea. He reports significant improvement in lower extremity edema and his diarrhea had resolved without intervention. Upon ambulation with nursing staff, the patient did desaturate to 86% on room air, so case management team was contacted for initiation of daytime home O2. The patient does currently have oxygen supplement through his BiPAP machine nightly. PHYSICAL EXAMINATION: Afebrile, heart rate 64, blood pressure 137/86, respiratory rate 18, oxygen saturation 92% on room air. In general, he is a well-appearing man, in no acute distress. He is alert and interactive and pleasant. Neck: Unable to appreciate JVP given body habitus. Heart: Regular rate and rhythm. No murmurs, gallops, or rubs. Lungs: Clear to auscultation bilaterally. No wheezes or crackles. Abdomen: Soft, nontender, nondistended. Normoactive bowel sounds. Extremities: With 1+ ankle edema bilaterally, slightly more pronounced on right lower extremity. Diffuse wrinkling status post diuresis. Warm and well perfused. PERTINENT STUDIES AND LABORATORY DATA: CBC notable for macrocytosis without anemia. BMP unremarkable. LFTs initially with AST/ALT 41/59 which normalized on repeat. BNP 165 which is elevated for this patient. Chest x-ray with stigmata of obstructive lung disease. No acute cardiopulmonary process evident. Abdominal ultrasound with contracted gallbladder secondary to the patient's meal soon before the study. No visible gallstones. Mild hepatomegaly with 2 hepatic cysts, largest complex and septated seen on his prior chest CT. Nonobstructing left renal calculi. No hydronephrosis. Venous Doppler right lower extremity without evidence of DVT. TTE with LV wall thickness mildly increased with normal systolic function and EF 55% to 60%. RV cavity size mildly dilated, wall thickness mildly increased. All valves grossly normal. Descending aorta is mildly dilated. Compared with prior echocardiogram in October, left ventricular hypertrophy was previously moderate and ejection fraction is stable. DISCHARGE PLAN: The patient will be discharged home with supplemental O2 set up for daytime rather than only through his noninvasive ventilation. His only significant medication changes are the addition of a diuretic, given reported history of fluid retention since discontinuation of hydrochlorothiazide and likely volume overload contributing to presenting symptoms this hospitalization. He is also to finish a steroid burst for his COPD exacerbation. He should continue follow up with his primary care physician, and he was also referred to [facility]. His primary care physician should consider optimizing his diabetes medications, including addition of oral hypoglycemic agents. The patient and his partner were educated on return precautions, which include but are not limited to recurrence of fever or worsening of shortness of breath or new symptom of cough productive of sputum. He should eat a healthy diet, low in processed foods and low in sugars with activities tolerated. DISPOSITION: Home. CONDITION: Good. TIME SPENT: Apparently 60 minutes was spent on discharge of this patient, more than of which was spent with care coordination at bedside for interview and exam. [id number]/[facility] #: [id number] KORINA
== END 2019-06-25 15:00 | disposition home or self-care (01) | DRG 191 ==
LOC: ED 13:44 → MED 16:49
PROVIDERS: ADMIT Internal Medicine; ATTEND Internal Medicine
DX: J44.1 Chronic obstructive pulmonary disease with (acute) exacerbation (principal); Z68.41 Body mass index [BMI] 40.0-44.9, adult; I50.32 Chronic diastolic (congestive) heart failure; E11.9 Type 2 diabetes mellitus without complications; E78.00 Pure hypercholesterolemia, unspecified; I45.10 Unspecified right bundle-branch block; E66.9 Obesity, unspecified; G47.33 Obstructive sleep apnea (adult) (pediatric); E78.5 Hyperlipidemia, unspecified; R19.7 Diarrhea, unspecified; R74.0 Nonspecific elevation of levels of transaminase and lactic acid dehydrogenase [LDH]; I11.0 Hypertensive heart disease with heart failure; R09.02 Hypoxemia; D75.89 Other specified diseases of blood and blood-forming organs; K76.89 Other specified diseases of liver; R30.0 Dysuria; N20.0 Calculus of kidney; N40.0 Benign prostatic hyperplasia without lower urinary tract symptoms; Z99.81 Dependence on supplemental oxygen; Z88.0 Allergy status to penicillin; Z88.2 Allergy status to sulfonamides; Z88.6 Allergy status to analgesic agent; Z87.442 Personal history of urinary calculi; Z72.89 Other problems related to lifestyle; Z87.891 Personal history of nicotine dependence; Z79.4 Long term (current) use of insulin; Z79.82 Long term (current) use of aspirin
CPT/HCPCS: 36415; 71046; 76700; 80048; 80053; 80076; 81003; 81015; 83605; 83735; 83880; 84484; 85025; 85379; 86140; 87040; 87045; 87046; 87077; 87086; 87186; 87493; 93005; 93306; 94640; 94660; 96365; 96372; 99284; A9270-GY; C8929; G8978-GP-CJ; G8979-GP-CI; J0456; J0696; J1650; J1940; J3535; J7512

== ENCOUNTER 2020-11-15 13:41 | Inpatient (IN) ==
[2020-11-15] MEDS ORDERED: methylPREDNISolone 125 mg 2 ML VIAL IV ONE (13:55)
[2020-11-15 15:07] LABS: ABS Lymphocytes 0.8 10^3/ul (1.0-4.8); ABS Monocytes 0.7 10^3/ul (0-0.8); ABS Neutrophils 8.8 10^3/ul (1.5-7.7); Eosinophil % 0.1 %; Hematocrit 47 % (42-52); Hemoglobin 16.2 g/dL (14.0-18.0); Lymphocyte % 7.8 %; Mean Corpuscular HGB Conc 34 g/dL (31-36); Mean Corpuscular Hemoglobin 34 pg (27-31); Mean Corpuscular Volume 100 fL (80-94); Mean Platelet Volume 8.8 fL (7.4-10.4); Nucleated Red Blood Cells % 0.1; Platelet Count 131 10^3/uL (150-450); Red Blood Count 4.74 10^6 /uL (4.18-5.48); Red Cell Distribution Width 14 % (10-15); White Blood Count 10.4 10^3/uL (3.5-10.8)
[2020-11-15 15:15] LABS: Influenza A Molecular Negative (Negative); Influenza B Molecular Negative (Negative)
[2020-11-15 15:20] LABS: Troponin I 0.01 ng/mL (<0.03)
[2020-11-15 15:27] LABS: INR 1.23 (0.82-1.09)
[2020-11-15 15:43] LABS: Albumin 4.2 g/dL (3.2-5.2); Albumin/Globulin Ratio 1.4 (1-3); BUN/Creatinine Ratio 17.9 (8-20); C Reactive Protein 20.21 mg/L (<8.01); Calcium 9.1 mg/dL (8.6-10.3); EGFR African American 73.9 (>60); EGFR Non-African American 61.1 (>60); Potassium 3.7 mmol/L (3.5-5.0); Total Protein 7.2 g/dL (6.4-8.9)
[2020-11-15] MEDS ORDERED: Albuterol HFA INHALER 8 gm MDI INH PRN (20:41)
[2020-11-15] MEDS ORDERED: CMCS: Simvastatin 10 mg TAB (NF) PO SCH (21:00)
[2020-11-15] MEDS: Albuterol/Ipratropium NEB.SOL (2.5/0.5 MG) 3 ML NEB.SOLN INH SCH ×2 (21:38→21:39)
[2020-11-15] MEDS: Mometasone/Formoter 100/5 MDI INH SCH (21:43)
[2020-11-15] MEDS: methylPREDNISolone 125 mg 2 ML VIAL IV SCH (22:01)
[2020-11-15] MEDS: Enoxaparin 40 MG/0.4 ML SYR SUBCUT SCH (22:05)
[2020-11-15] MEDS: Insulin GLARGINE 100 un/ml 10 ml VIAL SUBCUT SCH (22:17)
[2020-11-16] MEDS: methylPREDNISolone 125 mg 2 ML VIAL IV SCH ×2 (05:29→13:19)
[2020-11-16] MEDS: SPIRIVA Respimat (tiotropium) 2.5 mcg/inh Inhaler INH SCH (07:29)
[2020-11-16] MEDS: Mometasone/Formoter 100/5 MDI INH SCH ×2 (07:29→19:17)
[2020-11-16] MEDS: Multivitamins/Minerals TAB PO SCH (08:19)
[2020-11-16] MEDS: Aspirin EC 81 mg TAB.EC (enteric coated) PO SCH (08:20)
[2020-11-16] MEDS ORDERED: Dextrose 50% Syringe 50 ml 25 GM/50 ML SYRINGE IV PUSH PRN (12:26)
[2020-11-16] MEDS: Albuterol/Ipratropium NEB.SOL (2.5/0.5 MG) 3 ML NEB.SOLN INH SCH ×2 (14:50→19:16)
[2020-11-16] MEDS: CMCS: Simvastatin 10 mg TAB (NF) PO SCH (21:11)
[2020-11-16] MEDS: Enoxaparin 40 MG/0.4 ML SYR SUBCUT SCH (21:12)
[2020-11-16] MEDS: Insulin GLARGINE 100 un/ml 10 ml VIAL SUBCUT SCH (21:13)
[2020-11-17] MEDS: Albuterol/Ipratropium NEB.SOL (2.5/0.5 MG) 3 ML NEB.SOLN INH SCH ×4 (00:33→19:31)
[2020-11-17 06:45] LABS: BUN/Creatinine Ratio 27.7 (8-20); Calcium 9.2 mg/dL (8.6-10.3); EGFR African American 87.6 (>60); EGFR Non-African American 72.4 (>60); Potassium 4.7 mmol/L (3.5-5.0)
[2020-11-17] MEDS: SPIRIVA Respimat (tiotropium) 2.5 mcg/inh Inhaler INH SCH (07:58)
[2020-11-17] MEDS: Mometasone/Formoter 100/5 MDI INH SCH ×2 (07:59→19:32)
[2020-11-17] MEDS: Multivitamins/Minerals TAB PO SCH (08:29)
[2020-11-17] MEDS: Aspirin EC 81 mg TAB.EC (enteric coated) PO SCH (08:29)
[2020-11-17] MEDS: Fluticasone NASAL SPRAY 50MCG 16 gm SPRAY BTL BOTH NARES SCH (08:31)
[2020-11-17] MEDS: CMCS: Simvastatin 10 mg TAB (NF) PO SCH (20:07)
[2020-11-17] MEDS: Enoxaparin 40 MG/0.4 ML SYR SUBCUT SCH (20:14)
[2020-11-17] MEDS: Insulin GLARGINE 100 un/ml 10 ml VIAL SUBCUT SCH (20:15)
[2020-11-18] MEDS: Albuterol/Ipratropium NEB.SOL (2.5/0.5 MG) 3 ML NEB.SOLN INH SCH ×4 (01:23→19:23)
[2020-11-18] MEDS: SPIRIVA Respimat (tiotropium) 2.5 mcg/inh Inhaler INH SCH (07:16)
[2020-11-18] MEDS: Mometasone/Formoter 100/5 MDI INH SCH ×2 (07:16→19:29)
[2020-11-18] MEDS: Fluticasone NASAL SPRAY 50MCG 16 gm SPRAY BTL BOTH NARES SCH (08:20)
[2020-11-18] MEDS: Aspirin EC 81 mg TAB.EC (enteric coated) PO SCH (08:21)
[2020-11-18] MEDS: Multivitamins/Minerals TAB PO SCH (08:22)
[2020-11-18] MEDS: CMCS: Simvastatin 10 mg TAB (NF) PO SCH (21:11)
[2020-11-18] MEDS: Enoxaparin 40 MG/0.4 ML SYR SUBCUT SCH (21:11)
[2020-11-18] MEDS: Insulin GLARGINE 100 un/ml 10 ml VIAL SUBCUT SCH (21:14)
[2020-11-19] MEDS: Albuterol/Ipratropium NEB.SOL (2.5/0.5 MG) 3 ML NEB.SOLN INH SCH ×6 (01:38→23:25)
[2020-11-19 07:01] LABS: ABS Lymphocytes 1.4 10^3/ul (1.0-4.8); ABS Neutrophils 7.4 10^3/ul (1.5-7.7); Eosinophil % 0.1 %; Hematocrit 47 % (42-52); Hemoglobin 15.9 g/dL (14.0-18.0); Lymphocyte % 14.6 %; Mean Corpuscular HGB Conc 34 g/dL (31-36); Mean Corpuscular Hemoglobin 34 pg (27-31); Mean Corpuscular Volume 101 fL (80-94); Mean Platelet Volume 8.9 fL (7.4-10.4); Platelet Count 175 10^3/uL (150-450); Red Blood Count 4.68 10^6 /uL (4.18-5.48); Red Cell Distribution Width 14 % (10-15); White Blood Count 9.9 10^3/uL (3.5-10.8)
[2020-11-19 07:05] LABS: BUN/Creatinine Ratio 23.8 (8-20); Blood Urea Nitrogen 24 mg/dL (6-24); CO2 Carbon Dioxide 32 mmol/L (22-32); Calcium 8.9 mg/dL (8.6-10.3); Chloride 100 mmol/L (101-111); EGFR African American 87.6 (>60); EGFR Non-African American 72.4 (>60); Glucose 105 mg/dL (70-100); Sodium 138 mmol/L (135-145)
[2020-11-19] MEDS: SPIRIVA Respimat (tiotropium) 2.5 mcg/inh Inhaler INH SCH (07:06)
[2020-11-19] MEDS: Mometasone/Formoter 100/5 MDI INH SCH ×2 (07:06→19:09)
[2020-11-19 07:36] LABS: Anion Gap 6 mmol/L (2-11)
[2020-11-19] MEDS ORDERED: Benzocaine/Menthol LOZ PO PRN (08:43)
[2020-11-19] MEDS: Aspirin EC 81 mg TAB.EC (enteric coated) PO SCH (09:09)
[2020-11-19] MEDS: Fluticasone NASAL SPRAY 50MCG 16 gm SPRAY BTL BOTH NARES SCH (09:10)
[2020-11-19] MEDS: Multivitamins/Minerals TAB PO SCH (09:10)
[2020-11-19] MEDS: CMCS: Simvastatin 10 mg TAB (NF) PO SCH (19:55)
[2020-11-19] MEDS: Enoxaparin 40 MG/0.4 ML SYR SUBCUT SCH (19:57)
[2020-11-19] MEDS: Insulin GLARGINE 100 un/ml 10 ml VIAL SUBCUT SCH (19:58)
[2020-11-20] MEDS: Albuterol/Ipratropium NEB.SOL (2.5/0.5 MG) 3 ML NEB.SOLN INH SCH ×7 (03:15→23:23)
[2020-11-20 06:14] LABS: ABS Monocytes 0.7 10^3/ul (0-0.8); ABS Neutrophils 5.3 10^3/ul (1.5-7.7); Eosinophil % 0.4 %; Hematocrit 44 % (42-52); Hemoglobin 14.5 g/dL (14.0-18.0); Lymphocyte % 14.6 %; Mean Corpuscular HGB Conc 33 g/dL (31-36); Mean Corpuscular Hemoglobin 33 pg (27-31); Mean Corpuscular Volume 101 fL (80-94); Mean Platelet Volume 8.7 fL (7.4-10.4); Platelet Count 143 10^3/uL (150-450); Red Blood Count 4.34 10^6 /uL (4.18-5.48); Red Cell Distribution Width 14 % (10-15)
[2020-11-20 06:29] LABS: EGFR African American 92.9 (>60); EGFR Non-African American 76.8 (>60); Potassium 4.5 mmol/L (3.5-5.0)
[2020-11-20] MEDS: Mometasone/Formoter 100/5 MDI INH SCH ×2 (08:00→19:44)
[2020-11-20] MEDS: SPIRIVA Respimat (tiotropium) 2.5 mcg/inh Inhaler INH SCH (08:01)
[2020-11-20] MEDS: Fluticasone NASAL SPRAY 50MCG 16 gm SPRAY BTL BOTH NARES SCH (08:46)
[2020-11-20] MEDS: Aspirin EC 81 mg TAB.EC (enteric coated) PO SCH (08:47)
[2020-11-20] MEDS: Multivitamins/Minerals TAB PO SCH (08:47)
[2020-11-20 15:24] LABS: Magnesium 2.6 mg/dL (1.9-2.7)
[2020-11-20] MEDS ORDERED: Furosemide 40 mg/4 ml IV VIAL IV SLOW PU ONE (17:08)
[2020-11-20] MEDS: Enoxaparin 40 MG/0.4 ML SYR SUBCUT SCH (21:21)
[2020-11-20] MEDS: CMCS: Simvastatin 10 mg TAB (NF) PO SCH (21:22)
[2020-11-20] MEDS: Insulin GLARGINE 100 un/ml 10 ml VIAL SUBCUT SCH (21:35)
[2020-11-21] MEDS: Albuterol/Ipratropium NEB.SOL (2.5/0.5 MG) 3 ML NEB.SOLN INH SCH ×7 (03:00→23:15)
[2020-11-21] MEDS: Mometasone/Formoter 100/5 MDI INH SCH ×2 (07:03→19:37)
[2020-11-21] MEDS: SPIRIVA Respimat (tiotropium) 2.5 mcg/inh Inhaler INH SCH (07:03)
[2020-11-21 07:38] LABS: ABS Lymphocytes 1.2 10^3/ul (1.0-4.8); ABS Monocytes 0.8 10^3/ul (0-0.8); ABS Neutrophils 5.4 10^3/ul (1.5-7.7); Eosinophil % 0.2 %; Hematocrit 43 % (42-52); Hemoglobin 14.2 g/dL (14.0-18.0); Mean Corpuscular HGB Conc 33 g/dL (31-36); Mean Corpuscular Hemoglobin 34 pg (27-31); Mean Corpuscular Volume 102 fL (80-94); Mean Platelet Volume 9.1 fL (7.4-10.4); Platelet Count 146 10^3/uL (150-450); Red Blood Count 4.22 10^6 /uL (4.18-5.48); Red Cell Distribution Width 14 % (10-15); White Blood Count 7.4 10^3/uL (3.5-10.8)
[2020-11-21 07:58] LABS: Blood Urea Nitrogen 25 mg/dL (6-24); CO2 Carbon Dioxide 35 mmol/L (22-32); Calcium 8.8 mg/dL (8.6-10.3); Chloride 98 mmol/L (101-111); EGFR African American 84.7 (>60); Glucose 109 mg/dL (70-100); Sodium 139 mmol/L (135-145)
[2020-11-21 08:18] LABS: Anion Gap 6 mmol/L (2-11)
[2020-11-21] MEDS: Aspirin EC 81 mg TAB.EC (enteric coated) PO SCH (09:29)
[2020-11-21] MEDS: Multivitamins/Minerals TAB PO SCH (09:29)
[2020-11-21] MEDS: Fluticasone NASAL SPRAY 50MCG 16 gm SPRAY BTL BOTH NARES SCH (09:30)
[2020-11-21] MEDS ORDERED: Iodixanol (CONTRAST) 320 MG/ML 100 ML SDV IV ONE (14:33)
[2020-11-21] MEDS: cefTRIAXone 1 gm/50 mL NS BAG 1 GM/50 ML BAG IVPB SCH (18:24)
[2020-11-21] MEDS: Enoxaparin 40 MG/0.4 ML SYR SUBCUT SCH (20:54)
[2020-11-21] MEDS: CMCS: Simvastatin 10 mg TAB (NF) PO SCH (20:55)
[2020-11-21] MEDS: Insulin GLARGINE 100 un/ml 10 ml VIAL SUBCUT SCH (20:56)
[2020-11-22] MEDS: Albuterol/Ipratropium NEB.SOL (2.5/0.5 MG) 3 ML NEB.SOLN INH SCH ×6 (03:08→23:54)
[2020-11-22 06:42] LABS: Calcium 8.8 mg/dL (8.6-10.3); EGFR African American 92.9 (>60); EGFR Non-African American 76.8 (>60); Potassium 4.2 mmol/L (3.5-5.0)
[2020-11-22] MEDS: Mometasone/Formoter 100/5 MDI INH SCH (07:28)
[2020-11-22] MEDS: SPIRIVA Respimat (tiotropium) 2.5 mcg/inh Inhaler INH SCH (07:28)
[2020-11-22] MEDS ORDERED: Perflutren Lipid Microsphere 3 ML VIAL ONE (08:29)
[2020-11-22] MEDS: Multivitamins/Minerals TAB PO SCH (09:57)
[2020-11-22] MEDS: Aspirin EC 81 mg TAB.EC (enteric coated) PO SCH (09:58)
[2020-11-22] MEDS: Fluticasone NASAL SPRAY 50MCG 16 gm SPRAY BTL BOTH NARES SCH (10:02)
[2020-11-22] MEDS ORDERED: Albuterol/Ipratropium NEB.SOL (2.5/0.5 MG) 3 ML NEB.SOLN INH ONE (15:00)
[2020-11-22] MEDS: cefTRIAXone 1 gm/50 mL NS BAG 1 GM/50 ML BAG IVPB SCH (17:41)
[2020-11-22] MEDS: CMCS: Simvastatin 10 mg TAB (NF) PO SCH (20:01)
[2020-11-22] MEDS: Insulin GLARGINE 100 un/ml 10 ml VIAL SUBCUT SCH (20:02)
[2020-11-22] MEDS: Enoxaparin 40 MG/0.4 ML SYR SUBCUT SCH (20:02)
[2020-11-23] MEDS: Albuterol/Ipratropium NEB.SOL (2.5/0.5 MG) 3 ML NEB.SOLN INH SCH ×5 (03:04→19:21)
[2020-11-23] MEDS: Mometasone/Formoter 100/5 MDI INH SCH ×3 (03:23→19:21)
[2020-11-23 07:20] LABS: BUN/Creatinine Ratio 23.4 (8-20); Calcium 8.8 mg/dL (8.6-10.3); EGFR African American 95.2 (>60); EGFR Non-African American 78.7 (>60); Potassium 4.3 mmol/L (3.5-5.0)
[2020-11-23] MEDS: SPIRIVA Respimat (tiotropium) 2.5 mcg/inh Inhaler INH SCH (07:21)
[2020-11-23] MEDS: Aspirin EC 81 mg TAB.EC (enteric coated) PO SCH (07:50)
[2020-11-23] MEDS: Multivitamins/Minerals TAB PO SCH (07:50)
[2020-11-23] MEDS: Fluticasone NASAL SPRAY 50MCG 16 gm SPRAY BTL BOTH NARES SCH (07:54)
[2020-11-23] MEDS: cefTRIAXone 1 gm/50 mL NS BAG 1 GM/50 ML BAG IVPB SCH (17:47)
[2020-11-23] MEDS: CMCS: Simvastatin 10 mg TAB (NF) PO SCH (20:11)
[2020-11-23] MEDS: Enoxaparin 40 MG/0.4 ML SYR SUBCUT SCH (20:12)
[2020-11-23] MEDS: Insulin GLARGINE 100 un/ml 10 ml VIAL SUBCUT SCH (20:13)
[2020-11-24] MEDS: Albuterol/Ipratropium NEB.SOL (2.5/0.5 MG) 3 ML NEB.SOLN INH SCH ×7 (01:31→23:36)
[2020-11-24] MEDS: Mometasone/Formoter 100/5 MDI INH SCH ×2 (07:33→19:13)
[2020-11-24] MEDS: SPIRIVA Respimat (tiotropium) 2.5 mcg/inh Inhaler INH SCH (07:34)
[2020-11-24] MEDS: Aspirin EC 81 mg TAB.EC (enteric coated) PO SCH (08:16)
[2020-11-24] MEDS: Multivitamins/Minerals TAB PO SCH (08:17)
[2020-11-24] MEDS: Fluticasone NASAL SPRAY 50MCG 16 gm SPRAY BTL BOTH NARES SCH (10:00)
[2020-11-24] MEDS ORDERED: methylPREDNISolone SOD 40 mg/ml 1 ml VIAL IV ONE (16:32)
[2020-11-24] MEDS: cefTRIAXone 1 gm/50 mL NS BAG 1 GM/50 ML BAG IVPB SCH (18:30)
[2020-11-24] MEDS: CMCS: Simvastatin 10 mg TAB (NF) PO SCH (20:58)
[2020-11-24] MEDS: Enoxaparin 40 MG/0.4 ML SYR SUBCUT SCH (21:00)
[2020-11-24] MEDS: Insulin GLARGINE 100 un/ml 10 ml VIAL SUBCUT SCH (21:00)
[2020-11-25] MEDS: Albuterol/Ipratropium NEB.SOL (2.5/0.5 MG) 3 ML NEB.SOLN INH SCH ×7 (03:21→22:55)
[2020-11-25] MEDS: Mometasone/Formoter 100/5 MDI INH SCH ×2 (07:19→20:00)
[2020-11-25] MEDS: SPIRIVA Respimat (tiotropium) 2.5 mcg/inh Inhaler INH SCH (07:19)
[2020-11-25] MEDS: Fluticasone NASAL SPRAY 50MCG 16 gm SPRAY BTL BOTH NARES SCH (09:05)
[2020-11-25] MEDS: Multivitamins/Minerals TAB PO SCH (09:05)
[2020-11-25] MEDS: Aspirin EC 81 mg TAB.EC (enteric coated) PO SCH (09:06)
[2020-11-25] MEDS: cefTRIAXone 1 gm/50 mL NS BAG 1 GM/50 ML BAG IVPB SCH (18:01)
[2020-11-25] MEDS: CMCS: Simvastatin 10 mg TAB (NF) PO SCH (20:48)
[2020-11-25] MEDS: Insulin GLARGINE 100 un/ml 10 ml VIAL SUBCUT SCH (20:48)
[2020-11-25] MEDS: Enoxaparin 40 MG/0.4 ML SYR SUBCUT SCH (20:49)
[2020-11-26] MEDS: Albuterol/Ipratropium NEB.SOL (2.5/0.5 MG) 3 ML NEB.SOLN INH SCH ×3 (04:32→11:03)
[2020-11-26] MEDS: Mometasone/Formoter 100/5 MDI INH SCH (07:28)
[2020-11-26] MEDS: SPIRIVA Respimat (tiotropium) 2.5 mcg/inh Inhaler INH SCH (07:28)
[2020-11-26] MEDS: Multivitamins/Minerals TAB PO SCH (08:02)
[2020-11-26] MEDS: Aspirin EC 81 mg TAB.EC (enteric coated) PO SCH (08:02)
[2020-11-26] MEDS: Fluticasone NASAL SPRAY 50MCG 16 gm SPRAY BTL BOTH NARES SCH (08:05)
[2020-11-26 09:27] VITALS: BP 126/68
== END 2020-11-26 13:40 | disposition home or self-care (01) | DRG 190 ==
LOC: ED 13:41 → MED 19:22 → SUATTDRO 19:22 → MED 11-21 16:00
PROVIDERS: ADMIT Internal Medicine; ATTEND Internal Medicine

== ENCOUNTER 2020-11-30 19:23 | Inpatient (IN) ==
[2020-11-30 19:45] LABS: Hematocrit 50 % (42-52); Hemoglobin 16.7 g/dL (14.0-18.0); Mean Corpuscular HGB Conc 34 g/dL (31-36); Mean Corpuscular Hemoglobin 34 pg (27-31); Mean Corpuscular Volume 101 fL (80-94); Mean Platelet Volume 8.5 fL (7.4-10.4); Platelet Count 160 10^3/uL (150-450); Red Blood Count 4.93 10^6 /uL (4.18-5.48); Red Cell Distribution Width 14 % (10-15); White Blood Count 21.5 10^3/uL (3.5-10.8)
[2020-11-30 19:51] LABS: ABS Basophils 0.1 10^3/ul (0-0.2); ABS Lymphocytes 0.4 10^3/ul (1.0-4.8); ABS Monocytes 0.7 10^3/ul (0-0.8); ABS Neutrophils 20.3 10^3/ul (1.5-7.7); Eosinophil % 0.1 %; Lymphocyte % 2.1 %
[2020-11-30 20:01] LABS: Albumin 4.3 g/dL (3.2-5.2); Albumin/Globulin Ratio 1.5 (1-3); BUN/Creatinine Ratio 19.3 (8-20); Calcium 9.3 mg/dL (8.6-10.3); EGFR African American 76.2 (>60); Globulin 2.9 g/dL (2-4); Potassium 4.3 mmol/L (3.5-5.0); Total Bilirubin 0.8 mg/dL (0.2-1.0); Total Protein 7.2 g/dL (6.4-8.9)
[2020-11-30 20:03] LABS: Troponin I 0.01 ng/mL (<0.03)
[2020-11-30] MEDS ORDERED: Iodixanol (CONTRAST) 320 MG/ML 100 ML SDV IV ONE (21:36)
[2020-11-30] MEDS ORDERED: NS 0.9% 1000 ml BAG 1,000 ML IV ONE (23:56)
[2020-12-01] MEDS ORDERED: Albuterol HFA INHALER 8 gm MDI INH ONE (00:02)
[2020-12-01 00:17] LABS: Urine Appearance Cloudy; Urine Bilirubin Negative (Negative); Urine Blood 2+ (Negative); Urine Color Yellow; Urine Glucose Negative (Negative); Urine Ketones Negative (Negative); Urine Nitrite Positive (Negative); Urine Protein 1+(30 mg/dL) (Negative); Urine Urobilinogen Negative (Negative)
[2020-12-01 00:23] LABS: Urine Bacteria Absent (Absent); Urine Red Blood Cell 3+(>10/hpf) (Absent); Urine Specific Gravity > 1.060 (1.002-1.030); Urine Squamous Epithelial Cell Present (Absent); Urine White Blood Cell 3+(>20/hpf) (Absent)
[2020-12-01] MEDS ORDERED: Dextrose 50% Syringe 50 ml 25 GM/50 ML SYRINGE IV PUSH PRN (00:56)
[2020-12-01] MEDS ORDERED: Lactated Ringers 1000 ml BAG 1,000 ML IV SCH (01:00)
[2020-12-01] MEDS ORDERED: Albuterol HFA INHALER 8 gm MDI INH PRN (01:01)
[2020-12-01] MEDS ORDERED: cefTRIAXone 1 gm/50 mL NS BAG 1 GM/50 ML BAG IVPB SCH ×2 (03:00→21:37)
[2020-12-01 03:52] LABS: ABS Lymphocytes 0.6 10^3/ul (1.0-4.8); ABS Monocytes 0.3 10^3/ul (0-0.8); ABS Neutrophils 10.8 10^3/ul (1.5-7.7); Eosinophil % 0.2 %; Hematocrit 44 % (42-52); Hemoglobin 14.6 g/dL (14.0-18.0); Lymphocyte % 5.2 %; Mean Corpuscular HGB Conc 34 g/dL (31-36); Mean Corpuscular Hemoglobin 34 pg (27-31); Mean Corpuscular Volume 100 fL (80-94); Mean Platelet Volume 8.7 fL (7.4-10.4); Nucleated Red Blood Cells % 0.1; Platelet Count 130 10^3/uL (150-450); Red Blood Count 4.35 10^6 /uL (4.18-5.48); Red Cell Distribution Width 14 % (10-15); White Blood Count 11.7 10^3/uL (3.5-10.8)
[2020-12-01] MEDS: Enoxaparin 40 MG/0.4 ML SYR SUBCUT SCH (05:29)
[2020-12-01] MEDS: Albuterol 2.5mg/3 ml (0.083%) NEB.SOLN INH PRN ×3 (05:35→17:56)
[2020-12-01] MEDS ORDERED: Mometasone/Formoter 100/5 MDI INH SCH (09:00)
[2020-12-01] MEDS: SPIRIVA Respimat (tiotropium) 2.5 mcg/inh Inhaler INH SCH (09:17)
[2020-12-01] MEDS: Aspirin EC 81 mg TAB.EC (enteric coated) PO SCH (09:33)
[2020-12-01] MEDS: Multivitamins/Minerals TAB PO SCH (09:33)
[2020-12-01] MEDS: Insulin GLARGINE 100 un/ml 10 ml VIAL SUBCUT SCH (09:34)
[2020-12-01 09:59] LABS: Albumin/Globulin Ratio 1.7 (1-3); BUN/Creatinine Ratio 21.2 (8-20); Calcium 8.6 mg/dL (8.6-10.3); EGFR Non-African American 63.6 (>60); Globulin 2.4 g/dL (2-4); Potassium 4.4 mmol/L (3.5-5.0); Total Bilirubin 0.9 mg/dL (0.2-1.0); Total Protein 6.4 g/dL (6.4-8.9)
[2020-12-01] MEDS: Mometasone/Formoter 100/5 MDI INH SCH ×2 (18:02→19:20)
[2020-12-01] MEDS ORDERED: CMC:Simvastatin 10 mg TAB (NF) PO SCH (21:00)
[2020-12-02] MEDS: Enoxaparin 40 MG/0.4 ML SYR SUBCUT SCH (05:42)
[2020-12-02] MEDS: SPIRIVA Respimat (tiotropium) 2.5 mcg/inh Inhaler INH SCH (07:59)
[2020-12-02] MEDS: Mometasone/Formoter 100/5 MDI INH SCH (08:00)
[2020-12-02] MEDS: Insulin GLARGINE 100 un/ml 10 ml VIAL SUBCUT SCH (09:05)
[2020-12-02] MEDS: Multivitamins/Minerals TAB PO SCH (09:06)
[2020-12-02] MEDS: Aspirin EC 81 mg TAB.EC (enteric coated) PO SCH (09:06)
[2020-12-02 11:49] VITALS: BP 122/64
== END 2020-12-02 15:20 | disposition home or self-care (01) | DRG 872 ==
LOC: ED 19:23 → MED 12-01 00:47
PROVIDERS: ADMIT Internal Medicine; ATTEND Hospitalist

== ENCOUNTER 2021-03-30 03:33 | Inpatient (IN) ==
[2021-03-30] MEDS ORDERED: Albuterol 0.5% CONC CONTINUOUS NEB.SOL 5 mg/ml 20 ml BOT INH ONE (03:38)
[2021-03-30] MEDS ORDERED: methylPREDNISolone 125 mg 2 ML VIAL IV ONE (03:39)
[2021-03-30 04:23] LABS: ABS Lymphocytes 0.2 10^3/ul (1.0-4.8); ABS Monocytes 0.1 10^3/ul (0-0.8); ABS Neutrophils 5.2 10^3/ul (1.5-7.7); Eosinophil % 0.6 %; Hematocrit 47 % (42-52); Hemoglobin 15.7 g/dL (14.0-18.0); Lymphocyte % 4.4 %; Mean Corpuscular HGB Conc 34 g/dL (31-36); Mean Corpuscular Hemoglobin 33 pg (27-31); Mean Corpuscular Volume 99 fL (80-94); Mean Platelet Volume 7.9 fL (7.4-10.4); Nucleated Red Blood Cells % 0.1; Platelet Count 143 10^3/uL (150-450); Red Blood Count 4.73 10^6 /uL (4.18-5.48); Red Cell Distribution Width 14 % (10-15); White Blood Count 5.6 10^3/uL (3.5-10.8)
[2021-03-30 04:45] LABS: Albumin 4.1 g/dL (3.2-5.2); Albumin/Globulin Ratio 1.4 (1-3); Calcium 9.2 mg/dL (8.6-10.3); EGFR African American 79.4 (>60); EGFR Non-African American 65.6 (>60); Total Bilirubin 0.8 mg/dL (0.2-1.0); Total Protein 7.1 g/dL (6.4-8.9)
[2021-03-30 04:46] LABS: Troponin I 0.01 ng/mL (<0.03)
[2021-03-30] MEDS ORDERED: Iodixanol (CONTRAST) 320 MG/ML 100 ML SDV IV ONE (05:46)
[2021-03-30] MEDS ORDERED: Dextrose 50% Syringe 50 ml 25 GM/50 ML SYRINGE IV PUSH PRN (09:40)
[2021-03-30] MEDS ORDERED: Albuterol 2.5mg/3 ml (0.083%) NEB.SOLN INH PRN (09:40)
[2021-03-30 10:11] LABS: C Reactive Protein 10.74 mg/L (<8.01)
[2021-03-30] MEDS ORDERED: Azithromycin 500 mg/250 mL NS IVPB ONE (11:00)
[2021-03-30 11:18] LABS: Urine Appearance Cloudy; Urine Bacteria 1+ (Absent); Urine Bilirubin Negative (Negative); Urine Blood 2+ (Negative); Urine Color Yellow; Urine Glucose Negative (Negative); Urine Ketones Negative (Negative); Urine Nitrite Positive (Negative); Urine Protein 1+(30 mg/dL) (Negative); Urine Red Blood Cell 3+(>10/hpf) (Absent); Urine Squamous Epithelial Cell Present (Absent); Urine Urobilinogen Negative (Negative); Urine White Blood Cell 3+(>20/hpf) (Absent)
[2021-03-30 11:20] LABS: Urine Specific Gravity > 1.060 (1.002-1.030)
[2021-03-30] MEDS: methylPREDNISolone SOD 40 mg/ml 1 ml VIAL IV SCH (21:21)
[2021-03-30] MEDS: Insulin GLARGINE 100 un/ml 10 ml VIAL SUBCUT SCH (21:25)
[2021-03-31 06:14] LABS: ABS Lymphocytes 0.6 10^3/ul (1.0-4.8); ABS Monocytes 0.3 10^3/ul (0-0.8); ABS Neutrophils 11.3 10^3/ul (1.5-7.7); Hematocrit 41 % (42-52); Hemoglobin 13.9 g/dL (14.0-18.0); Lymphocyte % 4.5 %; Mean Corpuscular HGB Conc 34 g/dL (31-36); Mean Corpuscular Hemoglobin 34 pg (27-31); Mean Corpuscular Volume 98 fL (80-94); Platelet Count 106 10^3/uL (150-450); Red Blood Count 4.16 10^6 /uL (4.18-5.48); Red Cell Distribution Width 14 % (10-15); White Blood Count 12.3 10^3/uL (3.5-10.8)
[2021-03-31 06:35] LABS: Calcium 9.1 mg/dL (8.6-10.3); EGFR African American 92.9 (>60); EGFR Non-African American 76.8 (>60); Potassium 4.7 mmol/L (3.5-5.0)
[2021-03-31] MEDS: SPIRIVA Respimat (tiotropium) 2.5 mcg/inh Inhaler INH SCH (08:00)
[2021-03-31] MEDS: Mometasone/Formoter 100/5 MDI INH SCH ×2 (08:00→20:16)
[2021-03-31] MEDS: methylPREDNISolone SOD 40 mg/ml 1 ml VIAL IV SCH ×2 (08:38→21:19)
[2021-03-31] MEDS: Multivitamins/Minerals TAB PO SCH (08:39)
[2021-03-31] MEDS: Aspirin EC 81 mg TAB.EC (enteric coated) PO SCH (08:39)
[2021-03-31] MEDS ORDERED: Insulin GLARGINE 100 un/ml 10 ml VIAL SUBCUT SCH (09:00)
[2021-03-31] MEDS: cefTRIAXone 1 gm/50 mL NS BAG 1 GM/50 ML BAG IVPB SCH (12:08)
[2021-03-31] MEDS: Azithromycin 500 mg/250 ml NS 500 MG/250 ML BAG IVPB SCH (13:07)
[2021-03-31] MEDS: Albuterol HFA INHALER 8 gm MDI INH PRN (20:24)
[2021-03-31] MEDS: Insulin GLARGINE 100 un/ml 10 ml VIAL SUBCUT SCH (21:19)
[2021-04-01 05:59] LABS: ABS Lymphocytes 0.6 10^3/ul (1.0-4.8); ABS Monocytes 0.4 10^3/ul (0-0.8); ABS Neutrophils 9.1 10^3/ul (1.5-7.7); Hematocrit 40 % (42-52); Hemoglobin 13.9 g/dL (14.0-18.0); Lymphocyte % 6.3 %; Mean Corpuscular HGB Conc 34 g/dL (31-36); Mean Corpuscular Hemoglobin 34 pg (27-31); Mean Corpuscular Volume 98 fL (80-94); Mean Platelet Volume 8.8 fL (7.4-10.4); Nucleated Red Blood Cells % 0.1; Platelet Count 130 10^3/uL (150-450); Red Cell Distribution Width 14 % (10-15); White Blood Count 10.2 10^3/uL (3.5-10.8)
[2021-04-01 06:16] LABS: EGFR African American 104.1 (>60); Potassium 4.4 mmol/L (3.5-5.0)
[2021-04-01] MEDS: SPIRIVA Respimat (tiotropium) 2.5 mcg/inh Inhaler INH SCH (07:45)
[2021-04-01] MEDS: Mometasone/Formoter 100/5 MDI INH SCH ×3 (07:45→20:29)
[2021-04-01] MEDS: Aspirin EC 81 mg TAB.EC (enteric coated) PO SCH (08:26)
[2021-04-01] MEDS: Multivitamins/Minerals TAB PO SCH (08:27)
[2021-04-01] MEDS: cefTRIAXone 1 gm/50 mL NS BAG 1 GM/50 ML BAG IVPB SCH (10:31)
[2021-04-01] MEDS: Azithromycin 500 mg/250 ml NS 500 MG/250 ML BAG IVPB SCH (12:03)
[2021-04-01] MEDS: Enoxaparin 40 MG/0.4 ML SYR SUBCUT SCH (15:24)
[2021-04-01] MEDS: Albuterol HFA INHALER 8 gm MDI INH PRN (17:00)
[2021-04-01] MEDS: Insulin GLARGINE 100 un/ml 10 ml VIAL SUBCUT SCH (20:18)
[2021-04-02] MEDS: Multivitamins/Minerals TAB PO SCH (07:54)
[2021-04-02] MEDS: Aspirin EC 81 mg TAB.EC (enteric coated) PO SCH (07:54)
[2021-04-02] MEDS: Mometasone/Formoter 100/5 MDI INH SCH ×2 (08:18→19:52)
[2021-04-02] MEDS: SPIRIVA Respimat (tiotropium) 2.5 mcg/inh Inhaler INH SCH (08:18)
[2021-04-02 11:07] LABS: ABS Basophils 0.1 10^3/ul (0-0.2); ABS Lymphocytes 0.6 10^3/ul (1.0-4.8); ABS Monocytes 0.8 10^3/ul (0-0.8); ABS Neutrophils 10.1 10^3/ul (1.5-7.7); Hematocrit 44 % (42-52); Hemoglobin 14.9 g/dL (14.0-18.0); Lymphocyte % 5.4 %; Mean Corpuscular HGB Conc 34 g/dL (31-36); Mean Corpuscular Hemoglobin 34 pg (27-31); Mean Corpuscular Volume 99 fL (80-94); Mean Platelet Volume 8.5 fL (7.4-10.4); Platelet Count 162 10^3/uL (150-450); Red Blood Count 4.45 10^6 /uL (4.18-5.48); Red Cell Distribution Width 13 % (10-15); White Blood Count 11.6 10^3/uL (3.5-10.8)
[2021-04-02] MEDS: cefTRIAXone 1 gm/50 mL NS BAG 1 GM/50 ML BAG IVPB SCH (11:14)
[2021-04-02 11:24] LABS: Albumin/Globulin Ratio 1.5 (1-3); Calcium 9.1 mg/dL (8.6-10.3); EGFR Non-African American 67.7 (>60); Globulin 2.6 g/dL (2-4); Potassium 4.1 mmol/L (3.5-5.0); Total Bilirubin 0.6 mg/dL (0.2-1.0); Total Protein 6.6 g/dL (6.4-8.9)
[2021-04-02] MEDS: Linezolid 600 MG IVPREMIX(*) 600 MG/300 ML BAG IVPB SCH ×2 (12:39→23:54)
[2021-04-02] MEDS: Enoxaparin 40 MG/0.4 ML SYR SUBCUT SCH (13:25)
[2021-04-02] MEDS: Insulin GLARGINE 100 un/ml 10 ml VIAL SUBCUT SCH (19:30)
[2021-04-03 07:10] LABS: Hematocrit 44 % (42-52); Hemoglobin 14.9 g/dL (14.0-18.0); Mean Corpuscular HGB Conc 34 g/dL (31-36); Mean Corpuscular Hemoglobin 33 pg (27-31); Mean Corpuscular Volume 98 fL (80-94); Red Blood Count 4.47 10^6 /uL (4.18-5.48); Red Cell Distribution Width 13 % (10-15); White Blood Count 8.9 10^3/uL (3.5-10.8)
[2021-04-03 07:39] LABS: ABS Lymphocytes 1.9 10^3/ul (1.0-4.8); ABS Monocytes 0.7 10^3/ul (0-0.8); ABS Neutrophils 6.2 10^3/ul (1.5-7.7); Eosinophil % 0.4 %; Lymphocyte % 21.1 %; Mean Platelet Volume 9.4 fL (7.4-10.4); Nucleated Red Blood Cells % 0.1; Platelet Count 156 10^3/uL (150-450)
[2021-04-03] MEDS: SPIRIVA Respimat (tiotropium) 2.5 mcg/inh Inhaler INH SCH (07:48)
[2021-04-03] MEDS: Mometasone/Formoter 100/5 MDI INH SCH ×2 (07:48→19:51)
[2021-04-03] MEDS: Multivitamins/Minerals TAB PO SCH (07:51)
[2021-04-03] MEDS: Aspirin EC 81 mg TAB.EC (enteric coated) PO SCH (07:51)
[2021-04-03 10:59] LABS: Albumin 3.8 g/dL (3.2-5.2); CO2 Carbon Dioxide 28 mmol/L (22-32); Calcium 8.4 mg/dL (8.6-10.3); Chloride 100 mmol/L (101-111); Sodium 136 mmol/L (135-145)
[2021-04-03 11:05] LABS: ALT 131 U/L (7-52); Albumin/Globulin Ratio 1.8 (1-3); Alkaline Phosphatase 65 U/L (35-149); Blood Urea Nitrogen 25 mg/dL (6-24); C Reactive Protein 8.46 mg/L (<8.01); EGFR African American 85.7 (>60); EGFR Non-African American 70.8 (>60); Globulin 2.1 g/dL (2-4); Glucose 216 mg/dL (70-100); Total Protein 5.9 g/dL (6.4-8.9)
[2021-04-03 11:06] LABS: Anion Gap 8 mmol/L (2-11)
[2021-04-03] MEDS: Enoxaparin 40 MG/0.4 ML SYR SUBCUT SCH (14:47)
[2021-04-03 16:01] LABS: Potassium Redraw 4.4 mmol/L (3.5-5.0)
[2021-04-03] MEDS: Insulin GLARGINE 100 un/ml 10 ml VIAL SUBCUT SCH (21:58)
[2021-04-04] MEDS: Multivitamins/Minerals TAB PO SCH (07:59)
[2021-04-04] MEDS: Aspirin EC 81 mg TAB.EC (enteric coated) PO SCH (08:00)
[2021-04-04] MEDS: SPIRIVA Respimat (tiotropium) 2.5 mcg/inh Inhaler INH SCH (08:10)
[2021-04-04] MEDS: Mometasone/Formoter 100/5 MDI INH SCH (08:10)
[2021-04-04 09:46] VITALS: BP 133/67
== END 2021-04-04 14:10 | disposition home or self-care (01) | DRG 871 ==
LOC: MED 03:33 → ED 03:33 → MED 04-01 00:47
PROVIDERS: ADMIT Hospitalist; ATTEND Internal Medicine

== ENCOUNTER 2021-09-11 14:57 | Inpatient (IN) ==
[2021-09-11 16:27] LABS: Venous Bicarbonate HCO3 30.1 mmol/L (24-28)
[2021-09-11 16:33] LABS: ABS Lymphocytes 0.8 10^3/ul (1.0-4.8); ABS Monocytes 0.4 10^3/ul (0-0.8); ABS Neutrophils 3.4 10^3/ul (1.5-7.7); Hematocrit 46 % (42-52); Hemoglobin 15.8 g/dL (14.0-18.0); Lymphocyte % 17.7 %; Mean Corpuscular HGB Conc 34 g/dL (31-36); Mean Corpuscular Hemoglobin 34 pg (27-31); Mean Corpuscular Volume 98 fL (80-94); Nucleated Red Blood Cells % 0.1; Platelet Count 106 10^3/uL (150-450); Red Blood Count 4.69 10^6 /uL (4.18-5.48); Red Cell Distribution Width 14 % (10-15); White Blood Count 4.7 10^3/uL (3.5-10.8)
[2021-09-11 16:45] LABS: INR 1.35 (0.86-1.15)
[2021-09-11 16:51] LABS: Troponin I 0.02 ng/mL (<0.03)
[2021-09-11 17:00] LABS: Albumin 4.1 g/dL (3.2-5.2); Albumin/Globulin Ratio 1.4 (1-3); Calcium 8.6 mg/dL (8.6-10.3); Potassium 3.3 mmol/L (3.5-5.0); Total Bilirubin 0.7 mg/dL (0.2-1.0); Total Protein 7.1 g/dL (6.4-8.9); eGFR CKD-EPI 69.7 (>60)
[2021-09-11] MEDS ORDERED: Potassium Chlor 20 meq TAB.ER PO ONE ×2 (17:07→21:00)
[2021-09-11] MEDS ORDERED: methylPREDNISolone 125 mg 2 ML VIAL IV ONE (17:12)
[2021-09-11 18:31] LABS: PCO2 Arterial 38 mmHg (35-45); PO2 Arterial 69 mmHg (80-100)
[2021-09-11] MEDS ORDERED: Remdesivir 100 mg Vial 200 MG in NS 0.9% 250 ml 210 ML IV ONE (18:39)
[2021-09-11] MEDS ORDERED: Furosemide 40 mg/4 ml IV VIAL IV ONE (19:00)
[2021-09-11 19:17] LABS: TSH Ultra Thyroid Stim Horm 2.27 mcIU/mL (0.34-5.60)
[2021-09-11] MEDS ORDERED: methylPREDNISolone SOD 40 mg/ml 1 ml VIAL IV SCH (19:30)
[2021-09-11] MEDS ORDERED: Vitamin THERAPEUTIC TAB PO ONE (19:33)
[2021-09-11] MEDS ORDERED: NS 0.9% 250 ml 250 ML ONE (20:48)
[2021-09-11] MEDS: Enoxaparin 40 MG/0.4 ML SYR SUBCUT SCH (21:31)
[2021-09-11] MEDS: methylPREDNISolone SOD 40 mg/ml 1 ml VIAL IV SCH (22:49)
[2021-09-12 05:59] LABS: ABS Lymphocytes 0.6 10^3/ul (1.0-4.8); ABS Monocytes 0.2 10^3/ul (0-0.8); ABS Neutrophils 1.8 10^3/ul (1.5-7.7); Hematocrit 43 % (42-52); Hemoglobin 14.9 g/dL (14.0-18.0); Lymphocyte % 23.2 %; Mean Corpuscular HGB Conc 34 g/dL (31-36); Mean Corpuscular Hemoglobin 34 pg (27-31); Mean Corpuscular Volume 98 fL (80-94); Mean Platelet Volume 8.8 fL (7.4-10.4); Nucleated Red Blood Cells % 0.3; Platelet Count 113 10^3/uL (150-450); Red Blood Count 4.43 10^6 /uL (4.18-5.48); Red Cell Distribution Width 14 % (10-15); White Blood Count 2.6 10^3/uL (3.5-10.8)
[2021-09-12 06:20] LABS: Calcium 8.3 mg/dL (8.6-10.3); Potassium 4.4 mmol/L (3.5-5.0); eGFR CKD-EPI 62.2 (>60)
[2021-09-12] MEDS: Mometasone/Formoter 100/5 MDI INH SCH ×2 (07:48→19:15)
[2021-09-12] MEDS: SPIRIVA Respimat (tiotropium) 2.5 mcg/inh Inhaler INH SCH (07:48)
[2021-09-12 09:02] LABS: Magnesium 2.1 mg/dL (1.9-2.7)
[2021-09-12] MEDS: Insulin GLARGINE 100 un/ml 10 ml VIAL SUBCUT SCH (09:09)
[2021-09-12] MEDS: Aspirin EC 81 mg TAB.EC (enteric coated) PO SCH (09:09)
[2021-09-12] MEDS: methylPREDNISolone SOD 40 mg/ml 1 ml VIAL IV SCH ×3 (09:11→23:01)
[2021-09-12] MEDS: Vitamin THERAPEUTIC TAB PO SCH (09:11)
[2021-09-12] MEDS ORDERED: Azithromycin 500 mg/250 ml NS 500 MG/250 ML BAG IVPB ONE (10:02)
[2021-09-12] MEDS: cefTRIAXone 1 gm/50 mL NS BAG 1 GM/50 ML BAG IVPB SCH (12:31)
[2021-09-12] MEDS ORDERED: LORazepam 2 mg VIAL 1 ml IV PUSH PRN (17:23)
[2021-09-12] MEDS ORDERED: Lorazepam PYXIS KEY PRN (17:23)
[2021-09-12] MEDS: Enoxaparin 40 MG/0.4 ML SYR SUBCUT SCH (21:24)
[2021-09-12] MEDS: Remdesivir 100 mg Vial 100 MG in NS 0.9% 250 ml 230 ML IV SCH (22:32)
[2021-09-13 05:35] LABS: ABS Lymphocytes 0.5 10^3/ul (1.0-4.8); ABS Monocytes 0.4 10^3/ul (0-0.8); Hematocrit 43 % (42-52); Hemoglobin 14.5 g/dL (14.0-18.0); Lymphocyte % 10.3 %; Mean Corpuscular HGB Conc 34 g/dL (31-36); Mean Corpuscular Hemoglobin 33 pg (27-31); Mean Corpuscular Volume 98 fL (80-94); Platelet Count 126 10^3/uL (150-450); Red Blood Count 4.33 10^6 /uL (4.18-5.48); Red Cell Distribution Width 14 % (10-15); White Blood Count 4.9 10^3/uL (3.5-10.8)
[2021-09-13 05:54] LABS: Albumin 3.5 g/dL (3.2-5.2); Albumin/Globulin Ratio 1.3 (1-3); Calcium 8.2 mg/dL (8.6-10.3); Globulin 2.6 g/dL (2-4); INR 1.28 (0.86-1.15); Magnesium 2.3 mg/dL (1.9-2.7); Phosphorus 3.5 mg/dL (2.5-5.0); Potassium 4.3 mmol/L (3.5-5.0); Total Bilirubin 0.5 mg/dL (0.2-1.0); Total Protein 6.1 g/dL (6.4-8.9); eGFR CKD-EPI 81.9 (>60)
[2021-09-13] MEDS: SPIRIVA Respimat (tiotropium) 2.5 mcg/inh Inhaler INH SCH (07:31)
[2021-09-13] MEDS: Mometasone/Formoter 100/5 MDI INH SCH ×2 (07:31→20:22)
[2021-09-13] MEDS: methylPREDNISolone SOD 40 mg/ml 1 ml VIAL IV SCH ×2 (07:50→16:21)
[2021-09-13] MEDS: Insulin GLARGINE 100 un/ml 10 ml VIAL SUBCUT SCH (07:51)
[2021-09-13] MEDS: Vitamin THERAPEUTIC TAB PO SCH (07:51)
[2021-09-13] MEDS: Aspirin EC 81 mg TAB.EC (enteric coated) PO SCH (07:53)
[2021-09-13] MEDS ORDERED: Insulin GLARGINE 100 un/ml 10 ml VIAL SUBCUT SCH (09:00)
[2021-09-13] MEDS: cefTRIAXone 1 gm/50 mL NS BAG 1 GM/50 ML BAG IVPB SCH (11:36)
[2021-09-13] MEDS ORDERED: Fluticasone NASAL SPRAY 50MCG 16 gm SPRAY BTL BOTH NARES PRN (17:13)
[2021-09-13] MEDS ORDERED: Fluticasone NASAL SPRAY 50MCG 16 gm SPRAY BTL BOTH NARES SCH (18:00)
[2021-09-13] MEDS: Enoxaparin 40 MG/0.4 ML SYR SUBCUT SCH (21:46)
[2021-09-13] MEDS: Remdesivir 100 mg Vial 100 MG in NS 0.9% 250 ml 230 ML IV SCH (22:39)
[2021-09-13 22:49] LABS: Urine Appearance Cloudy; Urine Bilirubin Negative (Negative); Urine Blood 3+ (Negative); Urine Color Yellow; Urine Glucose Negative (Negative); Urine Ketones Negative (Negative); Urine Nitrite Positive (Negative); Urine Protein 2+(100 mg/dL) (Negative); Urine Specific Gravity 1.021 (1.002-1.030); Urine Urobilinogen Negative (Negative)
[2021-09-13 22:58] LABS: Urine Bacteria Absent (Absent); Urine Red Blood Cell 3+(>10/hpf) (Absent); Urine White Blood Cell 3+(>20/hpf) (Absent)
[2021-09-14] MEDS: methylPREDNISolone SOD 40 mg/ml 1 ml VIAL IV SCH ×3 (00:31→20:55)
[2021-09-14 07:11] LABS: Hematocrit 43 % (42-52); Hemoglobin 14.4 g/dL (14.0-18.0); Mean Corpuscular HGB Conc 34 g/dL (31-36); Mean Corpuscular Hemoglobin 33 pg (27-31); Mean Corpuscular Volume 99 fL (80-94); Mean Platelet Volume 9.3 fL (7.4-10.4); Platelet Count 128 10^3/uL (150-450); Red Blood Count 4.31 10^6 /uL (4.18-5.48); Red Cell Distribution Width 14 % (10-15); White Blood Count 6.2 10^3/uL (3.5-10.8)
[2021-09-14 07:26] LABS: Albumin 3.6 g/dL (3.2-5.2); Albumin/Globulin Ratio 1.5 (1-3); Calcium 8.2 mg/dL (8.6-10.3); Globulin 2.4 g/dL (2-4); Magnesium 2.5 mg/dL (1.9-2.7); Potassium 4.5 mmol/L (3.5-5.0); Total Bilirubin 0.5 mg/dL (0.2-1.0); eGFR CKD-EPI 86.2 (>60)
[2021-09-14] MEDS: Mometasone/Formoter 100/5 MDI INH SCH ×2 (08:00→19:24)
[2021-09-14] MEDS: SPIRIVA Respimat (tiotropium) 2.5 mcg/inh Inhaler INH SCH (08:01)
[2021-09-14] MEDS: Insulin GLARGINE 100 un/ml 10 ml VIAL SUBCUT SCH (08:47)
[2021-09-14] MEDS: Vitamin THERAPEUTIC TAB PO SCH (08:48)
[2021-09-14] MEDS: Aspirin EC 81 mg TAB.EC (enteric coated) PO SCH (08:49)
[2021-09-14] MEDS ORDERED: Dextrose 50% Syringe 50 ml 25 GM/50 ML SYRINGE IV PUSH PRN (09:24)
[2021-09-14] MEDS: Albuterol HFA INHALER 8 gm MDI INH PRN (11:49)
[2021-09-14] MEDS: cefTRIAXone 1 gm/50 mL NS BAG 1 GM/50 ML BAG IVPB SCH (12:09)
[2021-09-14] MEDS: Enoxaparin 40 MG/0.4 ML SYR SUBCUT SCH (20:59)
[2021-09-14] MEDS: Remdesivir 100 mg Vial 100 MG in NS 0.9% 250 ml 230 ML IV SCH (21:04)
[2021-09-15 06:05] LABS: ABS Lymphocytes 0.4 10^3/ul (1.0-4.8); ABS Monocytes 0.3 10^3/ul (0-0.8); ABS Neutrophils 5.1 10^3/ul (1.5-7.7); Eosinophil % 0.1 %; Hematocrit 42 % (42-52); Hemoglobin 14.3 g/dL (14.0-18.0); Lymphocyte % 6.1 %; Mean Corpuscular HGB Conc 34 g/dL (31-36); Mean Corpuscular Hemoglobin 33 pg (27-31); Mean Corpuscular Volume 99 fL (80-94); Mean Platelet Volume 9.5 fL (7.4-10.4); Platelet Count 131 10^3/uL (150-450); Red Blood Count 4.29 10^6 /uL (4.18-5.48); Red Cell Distribution Width 13 % (10-15); White Blood Count 5.8 10^3/uL (3.5-10.8)
[2021-09-15 06:15] LABS: Albumin 3.5 g/dL (3.2-5.2); Magnesium 2.7 mg/dL (1.9-2.7); Potassium 4.6 mmol/L (3.5-5.0); Total Bilirubin 0.6 mg/dL (0.2-1.0)
[2021-09-15 06:21] LABS: Albumin/Globulin Ratio 1.8 (1-3); Globulin 1.9 g/dL (2-4); Total Protein 5.4 g/dL (6.4-8.9); eGFR CKD-EPI 88.4 (>60)
[2021-09-15] MEDS: SPIRIVA Respimat (tiotropium) 2.5 mcg/inh Inhaler INH SCH (07:47)
[2021-09-15] MEDS: Mometasone/Formoter 100/5 MDI INH SCH ×2 (07:48→20:20)
[2021-09-15] MEDS: Insulin GLARGINE 100 un/ml 10 ml VIAL SUBCUT SCH (08:59)
[2021-09-15] MEDS: Vitamin THERAPEUTIC TAB PO SCH (09:01)
[2021-09-15] MEDS: methylPREDNISolone SOD 40 mg/ml 1 ml VIAL IV SCH ×2 (09:03→21:45)
[2021-09-15] MEDS: Aspirin EC 81 mg TAB.EC (enteric coated) PO SCH (09:03)
[2021-09-15] MEDS: cefTRIAXone 1 gm/50 mL NS BAG 1 GM/50 ML BAG IVPB SCH (12:08)
[2021-09-15] MEDS: Albuterol HFA INHALER 8 gm MDI INH PRN (20:23)
[2021-09-15] MEDS: Enoxaparin 40 MG/0.4 ML SYR SUBCUT SCH (21:47)
[2021-09-16] MEDS: Mometasone/Formoter 100/5 MDI INH SCH ×2 (07:12→19:28)
[2021-09-16] MEDS: SPIRIVA Respimat (tiotropium) 2.5 mcg/inh Inhaler INH SCH (07:12)
[2021-09-16] MEDS: Aspirin EC 81 mg TAB.EC (enteric coated) PO SCH (07:59)
[2021-09-16] MEDS: Vitamin THERAPEUTIC TAB PO SCH (08:00)
[2021-09-16] MEDS: methylPREDNISolone SOD 40 mg/ml 1 ml VIAL IV SCH ×2 (08:01→22:42)
[2021-09-16] MEDS: Insulin GLARGINE 100 un/ml 10 ml VIAL SUBCUT SCH (08:02)
[2021-09-16] MEDS: Albuterol HFA INHALER 8 gm MDI INH PRN ×2 (11:01→19:28)
[2021-09-16] MEDS: Nystatin SUSPENSION 100,000 UNITS/ML UDC PO SCH ×3 (11:55→22:37)
[2021-09-16] MEDS: cefTRIAXone 1 gm/50 mL NS BAG 1 GM/50 ML BAG IVPB SCH (11:59)
[2021-09-16] MEDS: Enoxaparin 40 MG/0.4 ML SYR SUBCUT SCH (22:39)
[2021-09-17 06:56] LABS: ABS Lymphocytes 0.3 10^3/ul (1.0-4.8); ABS Monocytes 0.4 10^3/ul (0-0.8); ABS Neutrophils 7.4 10^3/ul (1.5-7.7); Eosinophil % 0.1 %; Hematocrit 43 % (42-52); Hemoglobin 14.7 g/dL (14.0-18.0); Lymphocyte % 3.7 %; Mean Corpuscular HGB Conc 34 g/dL (31-36); Mean Corpuscular Hemoglobin 34 pg (27-31); Mean Corpuscular Volume 99 fL (80-94); Mean Platelet Volume 9.6 fL (7.4-10.4); Platelet Count 139 10^3/uL (150-450); Red Blood Count 4.38 10^6 /uL (4.18-5.48); Red Cell Distribution Width 13 % (10-15); White Blood Count 8.2 10^3/uL (3.5-10.8)
[2021-09-17 07:15] LABS: Albumin 3.5 g/dL (3.2-5.2); Albumin/Globulin Ratio 1.5 (1-3); Calcium 8.1 mg/dL (8.6-10.3); Globulin 2.4 g/dL (2-4); Magnesium 2.7 mg/dL (1.9-2.7); Potassium 4.5 mmol/L (3.5-5.0); Total Bilirubin 0.7 mg/dL (0.2-1.0); Total Protein 5.9 g/dL (6.4-8.9); eGFR CKD-EPI 91.2 (>60)
[2021-09-17] MEDS: Mometasone/Formoter 100/5 MDI INH SCH ×2 (07:45→19:54)
[2021-09-17] MEDS: Albuterol HFA INHALER 8 gm MDI INH PRN ×2 (07:45→13:59)
[2021-09-17] MEDS: SPIRIVA Respimat (tiotropium) 2.5 mcg/inh Inhaler INH SCH (07:45)
[2021-09-17] MEDS: Nystatin SUSPENSION 100,000 UNITS/ML UDC PO SCH ×4 (08:08→20:59)
[2021-09-17] MEDS: Insulin GLARGINE 100 un/ml 10 ml VIAL SUBCUT SCH (08:12)
[2021-09-17] MEDS: Aspirin EC 81 mg TAB.EC (enteric coated) PO SCH (08:13)
[2021-09-17] MEDS: Vitamin THERAPEUTIC TAB PO SCH (08:14)
[2021-09-17] MEDS: methylPREDNISolone SOD 40 mg/ml 1 ml VIAL IV SCH (08:15)
[2021-09-17] MEDS: cefTRIAXone 1 gm/50 mL NS BAG 1 GM/50 ML BAG IVPB SCH (11:23)
[2021-09-17] MEDS: Enoxaparin 40 MG/0.4 ML SYR SUBCUT SCH (21:01)
[2021-09-18] MEDS: SPIRIVA Respimat (tiotropium) 2.5 mcg/inh Inhaler INH SCH (07:34)
[2021-09-18] MEDS: Mometasone/Formoter 100/5 MDI INH SCH ×2 (07:35→19:32)
[2021-09-18] MEDS: Aspirin EC 81 mg TAB.EC (enteric coated) PO SCH (09:27)
[2021-09-18] MEDS: Nystatin SUSPENSION 100,000 UNITS/ML UDC PO SCH ×4 (09:27→20:28)
[2021-09-18] MEDS: methylPREDNISolone SOD 40 mg/ml 1 ml VIAL IV SCH (09:28)
[2021-09-18] MEDS: Insulin GLARGINE 100 un/ml 10 ml VIAL SUBCUT SCH (09:28)
[2021-09-18] MEDS: Vitamin THERAPEUTIC TAB PO SCH (09:28)
[2021-09-18 10:31] LABS: ABS Eosinophils 0.1 10^3/ul (0-0.6); ABS Monocytes 0.8 10^3/ul (0-0.8); Eosinophil % 0.7 %; Hematocrit 45 % (42-52); Hemoglobin 15.4 g/dL (14.0-18.0); Lymphocyte % 9.1 %; Mean Corpuscular HGB Conc 34 g/dL (31-36); Mean Corpuscular Hemoglobin 33 pg (27-31); Mean Corpuscular Volume 98 fL (80-94); Mean Platelet Volume 9.2 fL (7.4-10.4); Nucleated Red Blood Cells % 0.1; Platelet Count 184 10^3/uL (150-450); Red Blood Count 4.63 10^6 /uL (4.18-5.48); Red Cell Distribution Width 14 % (10-15); White Blood Count 10.9 10^3/uL (3.5-10.8)
[2021-09-18 10:48] LABS: Albumin 3.4 g/dL (3.2-5.2); Albumin/Globulin Ratio 1.5 (1-3); Calcium 8.1 mg/dL (8.6-10.3); Globulin 2.3 g/dL (2-4); Potassium 4.3 mmol/L (3.5-5.0); Total Bilirubin 0.9 mg/dL (0.2-1.0); Total Protein 5.7 g/dL (6.4-8.9); eGFR CKD-EPI 74.5 (>60)
[2021-09-18] MEDS: cefTRIAXone 1 gm/50 mL NS BAG 1 GM/50 ML BAG IVPB SCH (11:58)
[2021-09-18] MEDS: Enoxaparin 40 MG/0.4 ML SYR SUBCUT SCH (20:29)
[2021-09-19] MEDS: Mometasone/Formoter 100/5 MDI INH SCH (07:48)
[2021-09-19] MEDS: SPIRIVA Respimat (tiotropium) 2.5 mcg/inh Inhaler INH SCH (07:48)
[2021-09-19 07:53] LABS: Hematocrit 42 % (42-52); Hemoglobin 14.4 g/dL (14.0-18.0); Mean Corpuscular HGB Conc 34 g/dL (31-36); Mean Corpuscular Hemoglobin 34 pg (27-31); Mean Corpuscular Volume 98 fL (80-94); Mean Platelet Volume 10.1 fL (7.4-10.4); Platelet Count 155 10^3/uL (150-450); Red Blood Count 4.29 10^6 /uL (4.18-5.48); Red Cell Distribution Width 13 % (10-15); White Blood Count 6.9 10^3/uL (3.5-10.8)
[2021-09-19 08:30] LABS: Albumin 3.3 g/dL (3.2-5.2); Magnesium 2.6 mg/dL (1.9-2.7); Potassium 4.2 mmol/L (3.5-5.0); Total Bilirubin 0.7 mg/dL (0.2-1.0)
[2021-09-19 08:36] LABS: Albumin/Globulin Ratio 1.4 (1-3); Globulin 2.3 g/dL (2-4); Total Protein 5.6 g/dL (6.4-8.9); eGFR CKD-EPI 88.4 (>60)
[2021-09-19] MEDS: Vitamin THERAPEUTIC TAB PO SCH (08:47)
[2021-09-19] MEDS: Aspirin EC 81 mg TAB.EC (enteric coated) PO SCH (08:48)
[2021-09-19] MEDS: Nystatin SUSPENSION 100,000 UNITS/ML UDC PO SCH ×2 (08:48→12:49)
[2021-09-19] MEDS: Insulin GLARGINE 100 un/ml 10 ml VIAL SUBCUT SCH (08:50)
[2021-09-19 11:02] LABS: ABS Lymphocytes 0.7 10^3/ul (1.0-4.8); ABS Monocytes 0.5 10^3/ul (0-0.8); ABS Neutrophils 5.7 10^3/ul (1.5-7.7); Eosinophil % 0.3 %; Lymphocyte % 10.6 %; Nucleated Red Blood Cells % 0.1
[2021-09-19 11:42] VITALS: BP 127/80
== END 2021-09-19 14:30 | disposition home or self-care (01) | DRG 177 ==
LOC: ED 14:57 → SUATTDRO 22:19 → ICU 22:19 → MED 09-13 10:50
PROVIDERS: ADMIT Internal Medicine; ATTEND Family Medicine

== ENCOUNTER 2022-08-04 08:35 | Inpatient (IN) ==
[2022-08-04] MEDS ORDERED: Albuterol/Ipratropium NEB.SOL (2.5/0.5 MG) 3 ML NEB.SOLN INH ONE ×2 (08:40→11:07)
[2022-08-04] MEDS ORDERED: methylPREDNISolone SOD SUCC 125 mg 2 ML VIAL IV ONE (08:41)
[2022-08-04 09:07] LABS: ABS Lymphocytes 0.8 10^3/ul (1.0-4.8); ABS Monocytes 0.6 10^3/ul (0-0.8); ABS Neutrophils 3.6 10^3/ul (1.5-7.7); Eosinophil % 0.5 %; Hematocrit 46 % (42-52); Hemoglobin 15.2 g/dL (14.0-18.0); Mean Corpuscular HGB Conc 33 g/dL (31-36); Mean Corpuscular Hemoglobin 33 pg (27-31); Mean Corpuscular Volume 98 fL (80-94); Mean Platelet Volume 7.4 fL (7.4-10.4); Nucleated Red Blood Cells % 0.1; Platelet Count 130 10^3/uL (150-450); Red Blood Count 4.67 10^6 /uL (4.18-5.48); Red Cell Distribution Width 14 % (10-15); White Blood Count 5.1 10^3/uL (3.5-10.8)
[2022-08-04 09:08] LABS: PCO2 Arterial 56 mmHg (35-45); PO2 Arterial 123 mmHg (80-100)
[2022-08-04 09:48] LABS: Albumin 4.3 g/dL (3.2-5.2); Albumin/Globulin Ratio 1.7 (1-3); Calcium 9.1 mg/dL (8.6-10.3); Globulin 2.6 g/dL (2-4); Potassium 3.6 mmol/L (3.5-5.0); Total Bilirubin 0.8 mg/dL (0.2-1.0); Total Protein 6.9 g/dL (6.4-8.9); eGFR CKD-EPI 75.3 (>60)
[2022-08-04 10:54] LABS: High Sensitivity Troponin 1 Hr 11 pg/mL (<20)
[2022-08-04] MEDS ORDERED: Furosemide 40 mg/4 ml IV VIAL IV ONE (11:47)
[2022-08-04 12:46] LABS: Magnesium 1.9 mg/dL (1.9-2.7)
[2022-08-04] MEDS ORDERED: Furosemide 20 mg/2 ml IV VIAL IV ONE (14:28)
[2022-08-04] MEDS ORDERED: Albuterol 2.5mg/3 ml (0.083%) NEB.SOLN INH PRN (14:53)
[2022-08-04] MEDS ORDERED: Dextrose 50% Syringe 50 ml 25 GM/50 ML SYRINGE IV PUSH PRN (14:55)
[2022-08-04] MEDS: Insulin GLARGINE 100 un/ml 10 ml VIAL SUBCUT SCH ×2 (15:49→20:52)
[2022-08-04] MEDS: Enoxaparin 40 MG/0.4 ML SYR SUBCUT SCH (15:51)
[2022-08-04] MEDS ORDERED: Albuterol/Ipratropium NEB.SOL (2.5/0.5 MG) 3 ML NEB.SOLN INH PRN (19:18)
[2022-08-04] MEDS: Albuterol 2.5mg/3 ml (0.083%) NEB.SOLN INH PRN (23:40)
[2022-08-05 07:06] LABS: ABS Lymphocytes 0.5 10^3/ul (1.0-4.8); ABS Monocytes 0.7 10^3/ul (0-0.8); ABS Neutrophils 5.9 10^3/ul (1.5-7.7); Eosinophil % 0.1 %; Hematocrit 42 % (42-52); Lymphocyte % 7.3 %; Mean Corpuscular HGB Conc 34 g/dL (31-36); Mean Corpuscular Hemoglobin 33 pg (27-31); Mean Corpuscular Volume 99 fL (80-94); Mean Platelet Volume 7.8 fL (7.4-10.4); Platelet Count 121 10^3/uL (150-450); Red Blood Count 4.22 10^6 /uL (4.18-5.48); Red Cell Distribution Width 14 % (10-15); White Blood Count 7.1 10^3/uL (3.5-10.8)
[2022-08-05] MEDS: SPIRIVA Respimat (tiotropium) 2.5 mcg/inh Inhaler INH SCH (07:33)
[2022-08-05] MEDS: Mometasone/Formoter 100/5 MDI INH SCH ×2 (07:33→19:38)
[2022-08-05] MEDS: Albuterol HFA INHALER 8 gm MDI INH PRN ×2 (07:39→11:51)
[2022-08-05 07:46] LABS: Calcium 8.8 mg/dL (8.6-10.3); Potassium 3.8 mmol/L (3.5-5.0); Total Bilirubin 0.6 mg/dL (0.2-1.0)
[2022-08-05 07:52] LABS: Albumin/Globulin Ratio 1.6 (1-3); Globulin 2.5 g/dL (2-4); Total Protein 6.5 g/dL (6.4-8.9); eGFR CKD-EPI 85.1 (>60)
[2022-08-05] MEDS: Albuterol 2.5mg/3 ml (0.083%) NEB.SOLN INH PRN (09:03)
[2022-08-05] MEDS: Furosemide 40 mg/4 ml IV VIAL IV SLOW PU SCH (09:25)
[2022-08-05] MEDS: Aspirin EC 81 mg TAB.EC (enteric coated) PO SCH (09:27)
[2022-08-05] MEDS: Multivitamins/Minerals TAB PO SCH (09:27)
[2022-08-05] MEDS: Enoxaparin 40 MG/0.4 ML SYR SUBCUT SCH (14:04)
[2022-08-05 19:12] LABS: Urine Appearance Cloudy; Urine Bilirubin Negative (Negative); Urine Blood 3+ (Negative); Urine Color Amber; Urine Glucose Negative (Negative); Urine Ketones Negative (Negative); Urine Nitrite Negative (Negative); Urine Protein 2+(100 mg/dL) (Negative); Urine Urobilinogen Negative (Negative)
[2022-08-05 19:30] LABS: Urine Bacteria Absent (Absent); Urine Red Blood Cell 3+(>10/hpf) (Absent); Urine Squamous Epithelial Cell Present (Absent); Urine White Blood Cell 2+(11-20/hpf) (Absent)
[2022-08-05] MEDS: Insulin GLARGINE 100 un/ml 10 ml VIAL SUBCUT SCH (21:39)
[2022-08-06] MEDS: Albuterol HFA INHALER 8 gm MDI INH PRN (07:20)
[2022-08-06] MEDS: SPIRIVA Respimat (tiotropium) 2.5 mcg/inh Inhaler INH SCH (07:21)
[2022-08-06] MEDS: Mometasone/Formoter 100/5 MDI INH SCH ×2 (07:22→19:36)
[2022-08-06] MEDS: Aspirin EC 81 mg TAB.EC (enteric coated) PO SCH (08:12)
[2022-08-06] MEDS: Multivitamins/Minerals TAB PO SCH (08:12)
[2022-08-06] MEDS: Furosemide 40 mg/4 ml IV VIAL IV SLOW PU SCH (08:13)
[2022-08-06] MEDS ORDERED: Senna TAB 8.6 mg TAB PO PRN (09:03)
[2022-08-06 09:05] LABS: ABS Lymphocytes 1.2 10^3/ul (1.0-4.8); ABS Neutrophils 8.7 10^3/ul (1.5-7.7); Eosinophil % 0.1 %; Hematocrit 45 % (42-52); Hemoglobin 14.7 g/dL (14.0-18.0); Lymphocyte % 11.2 %; Mean Corpuscular HGB Conc 33 g/dL (31-36); Mean Corpuscular Hemoglobin 32 pg (27-31); Mean Corpuscular Volume 99 fL (80-94); Mean Platelet Volume 8.3 fL (7.4-10.4); Nucleated Red Blood Cells % 0.1; Platelet Count 178 10^3/uL (150-450); Red Blood Count 4.56 10^6 /uL (4.18-5.48); Red Cell Distribution Width 14 % (10-15)
[2022-08-06 09:20] LABS: Calcium 9.3 mg/dL (8.6-10.3); Potassium 4.2 mmol/L (3.5-5.0); eGFR CKD-EPI 66.1 (>60)
[2022-08-06] MEDS: Polyethylene Glycol 3350 17 GM PACKET PO SCH (10:02)
[2022-08-06] MEDS: Magnesium Hydroxide LIQ 30 ML UDC PO SCH ×2 (10:04→21:08)
[2022-08-06] MEDS: Enoxaparin 40 MG/0.4 ML SYR SUBCUT SCH (16:20)
[2022-08-06] MEDS: Albuterol 2.5mg/3 ml (0.083%) NEB.SOLN INH PRN (16:27)
[2022-08-06] MEDS: Albuterol 2.5mg/3 ml (0.083%) NEB.SOLN INH SCH (19:32)
[2022-08-06] MEDS: Insulin GLARGINE 100 un/ml 10 ml VIAL SUBCUT SCH (21:09)
[2022-08-07] MEDS: Albuterol 2.5mg/3 ml (0.083%) NEB.SOLN INH SCH ×7 (00:49→23:13)
[2022-08-07] MEDS: Albuterol HFA INHALER 8 gm MDI INH PRN ×2 (03:24→08:00)
[2022-08-07] MEDS ORDERED: methylPREDNISolone SOD SUCC 40 mg/ml 1 ml VIAL IM ONE (03:26)
[2022-08-07] MEDS ORDERED: methylPREDNISolone SOD SUCC 40 mg/ml 1 ml VIAL IV ONE (03:26)
[2022-08-07] MEDS: Aspirin EC 81 mg TAB.EC (enteric coated) PO SCH (07:57)
[2022-08-07] MEDS: Furosemide 40 mg/4 ml IV VIAL IV SLOW PU SCH (07:57)
[2022-08-07] MEDS: Multivitamins/Minerals TAB PO SCH (07:57)
[2022-08-07] MEDS: SPIRIVA Respimat (tiotropium) 2.5 mcg/inh Inhaler INH SCH (08:01)
[2022-08-07] MEDS: Mometasone/Formoter 100/5 MDI INH SCH ×2 (08:01→19:58)
[2022-08-07] MEDS: Magnesium Hydroxide LIQ 30 ML UDC PO SCH ×2 (08:06→21:30)
[2022-08-07] MEDS: Polyethylene Glycol 3350 17 GM PACKET PO SCH (08:06)
[2022-08-07] MEDS ORDERED: cefTRIAXone 1 gm/50 mL D5W 1 GM/50 ML BAG IV SCH (09:00)
[2022-08-07 09:32] LABS: Hematocrit 44 % (42-52); Hemoglobin 14.6 g/dL (14.0-18.0); Mean Corpuscular HGB Conc 33 g/dL (31-36); Mean Corpuscular Hemoglobin 33 pg (27-31); Mean Corpuscular Volume 99 fL (80-94); Mean Platelet Volume 7.8 fL (7.4-10.4); Platelet Count 165 10^3/uL (150-450); Red Cell Distribution Width 14 % (10-15); White Blood Count 7.7 10^3/uL (3.5-10.8)
[2022-08-07 10:16] LABS: Potassium 4.1 mmol/L (3.5-5.0); eGFR CKD-EPI 77.1 (>60)
[2022-08-07] MEDS ORDERED: Azithromycin 500 mg/250 ml NS 500 MG/250 ML BAG IVPB SCH (14:00)
[2022-08-07] MEDS: Enoxaparin 40 MG/0.4 ML SYR SUBCUT SCH (14:36)
[2022-08-07] MEDS: methylPREDNISolone SOD SUCC 40 mg/ml 1 ml VIAL IV SCH ×2 (14:36→21:34)
[2022-08-07] MEDS ORDERED: Insulin GLARGINE 100 un/ml 10 ml VIAL SUBCUT SCH (21:00)
[2022-08-08] MEDS: Albuterol 2.5mg/3 ml (0.083%) NEB.SOLN INH SCH ×6 (02:55→21:58)
[2022-08-08] MEDS: Albuterol HFA INHALER 8 gm MDI INH PRN (02:57)
[2022-08-08] MEDS: methylPREDNISolone SOD SUCC 40 mg/ml 1 ml VIAL IV SCH ×3 (04:03→20:16)
[2022-08-08 05:54] LABS: ABS Lymphocytes 0.6 10^3/ul (1.0-4.8); ABS Monocytes 0.4 10^3/ul (0-0.8); ABS Neutrophils 6.8 10^3/ul (1.5-7.7); Hematocrit 43 % (42-52); Hemoglobin 14.3 g/dL (14.0-18.0); Lymphocyte % 7.3 %; Mean Corpuscular HGB Conc 33 g/dL (31-36); Mean Corpuscular Hemoglobin 33 pg (27-31); Mean Corpuscular Volume 100 fL (80-94); Mean Platelet Volume 8.2 fL (7.4-10.4); Platelet Count 171 10^3/uL (150-450); Red Blood Count 4.33 10^6 /uL (4.18-5.48); Red Cell Distribution Width 14 % (10-15); White Blood Count 7.7 10^3/uL (3.5-10.8)
[2022-08-08 06:42] LABS: Magnesium 2.5 mg/dL (1.9-2.7); Potassium 4.6 mmol/L (3.5-5.0); eGFR CKD-EPI 58.7 (>60)
[2022-08-08] MEDS: Mometasone/Formoter 100/5 MDI INH SCH ×2 (07:13→19:30)
[2022-08-08] MEDS: SPIRIVA Respimat (tiotropium) 2.5 mcg/inh Inhaler INH SCH (07:14)
[2022-08-08] MEDS: Multivitamins/Minerals TAB PO SCH (09:12)
[2022-08-08] MEDS: Aspirin EC 81 mg TAB.EC (enteric coated) PO SCH (09:12)
[2022-08-08] MEDS: Furosemide 40 mg/4 ml IV VIAL IV SLOW PU SCH ×2 (09:13→16:25)
[2022-08-08] MEDS: Magnesium Hydroxide LIQ 30 ML UDC PO SCH ×2 (09:17→20:28)
[2022-08-08] MEDS: Polyethylene Glycol 3350 17 GM PACKET PO SCH (09:17)
[2022-08-08 13:33] LABS: Urine Appearance Cloudy; Urine Bacteria Absent (Absent); Urine Bilirubin Negative (Negative); Urine Blood 2+ (Negative); Urine Glucose Negative (Negative); Urine Ketones Negative (Negative); Urine Nitrite Negative (Negative); Urine Protein 2+(100 mg/dL) (Negative); Urine Red Blood Cell 3+(>10/hpf) (Absent); Urine Specific Gravity 1.008 (1.002-1.030); Urine Urobilinogen Negative (Negative); Urine White Blood Cell Trace(0-5/hpf) (Absent)
[2022-08-08] MEDS ORDERED: Perflutren Lipid Microsphere 3 ML VIAL ONE (13:39)
[2022-08-08 13:50] LABS: Urine Color Red
[2022-08-08] MEDS ORDERED: Insulin GLARGINE 100 un/ml 10 ml VIAL SUBCUT SCH (21:00)
[2022-08-09] MEDS: Albuterol 2.5mg/3 ml (0.083%) NEB.SOLN INH SCH ×5 (02:20→18:53)
[2022-08-09] MEDS: methylPREDNISolone SOD SUCC 40 mg/ml 1 ml VIAL IV SCH ×3 (05:32→20:25)
[2022-08-09 06:17] LABS: ABS Lymphocytes 0.6 10^3/ul (1.0-4.8); ABS Monocytes 0.5 10^3/ul (0-0.8); ABS Neutrophils 7.1 10^3/ul (1.5-7.7); Hematocrit 42 % (42-52); Hemoglobin 14.1 g/dL (14.0-18.0); Lymphocyte % 6.9 %; Mean Corpuscular HGB Conc 34 g/dL (31-36); Mean Corpuscular Hemoglobin 33 pg (27-31); Mean Corpuscular Volume 99 fL (80-94); Mean Platelet Volume 8.3 fL (7.4-10.4); Platelet Count 170 10^3/uL (150-450); Red Blood Count 4.24 10^6 /uL (4.18-5.48); Red Cell Distribution Width 14 % (10-15); White Blood Count 8.1 10^3/uL (3.5-10.8)
[2022-08-09 06:20] LABS: INR 1.11 (0.89-1.11)
[2022-08-09 06:49] LABS: Calcium 8.9 mg/dL (8.6-10.3); Magnesium 2.6 mg/dL (1.9-2.7); Potassium 4.6 mmol/L (3.5-5.0); eGFR CKD-EPI 59.8 (>60)
[2022-08-09] MEDS: Mometasone/Formoter 100/5 MDI INH SCH ×2 (07:25→18:54)
[2022-08-09] MEDS: SPIRIVA Respimat (tiotropium) 2.5 mcg/inh Inhaler INH SCH (07:25)
[2022-08-09] MEDS: Multivitamins/Minerals TAB PO SCH (09:54)
[2022-08-09] MEDS: Magnesium Hydroxide LIQ 30 ML UDC PO SCH ×2 (09:54→20:31)
[2022-08-09] MEDS: Aspirin EC 81 mg TAB.EC (enteric coated) PO SCH (09:54)
[2022-08-09] MEDS: Polyethylene Glycol 3350 17 GM PACKET PO SCH (09:55)
[2022-08-09] MEDS: Furosemide 40 mg/4 ml IV VIAL IV SLOW PU SCH ×2 (10:47→16:25)
[2022-08-09] MEDS ORDERED: Midazolam 2 mg/2 ml VIAL 1 mg/ml 2 ml VIAL (2 mg) ONE (11:40)
[2022-08-09] MEDS ORDERED: fentaNYL 250 mcg/5 ml 50 MCG/ML 5 ml VIAL (250 MCG) ONE (11:40)
[2022-08-09] MEDS: cefTRIAXone 1 gm/50 mL D5W 1 GM/50 ML BAG IV SCH (18:46)
[2022-08-09] MEDS: Insulin GLARGINE 100 un/ml 10 ml VIAL SUBCUT SCH (20:24)
[2022-08-10] MEDS: Albuterol 2.5mg/3 ml (0.083%) NEB.SOLN INH SCH ×2 (01:49→07:18)
[2022-08-10] MEDS: methylPREDNISolone SOD SUCC 40 mg/ml 1 ml VIAL IV SCH (05:47)
[2022-08-10] MEDS: Mometasone/Formoter 100/5 MDI INH SCH ×2 (07:17→18:37)
[2022-08-10] MEDS: SPIRIVA Respimat (tiotropium) 2.5 mcg/inh Inhaler INH SCH (07:18)
[2022-08-10] MEDS ORDERED: Albuterol 2.5mg/3 ml (0.083%) NEB.SOLN INH PRN (07:37)
[2022-08-10 08:29] LABS: ABS Lymphocytes 0.4 10^3/ul (1.0-4.8); ABS Monocytes 0.5 10^3/ul (0-0.8); ABS Neutrophils 7.8 10^3/ul (1.5-7.7); Hematocrit 43 % (42-52); Hemoglobin 14.8 g/dL (14.0-18.0); Lymphocyte % 4.8 %; Mean Corpuscular HGB Conc 34 g/dL (31-36); Mean Corpuscular Hemoglobin 34 pg (27-31); Mean Corpuscular Volume 98 fL (80-94); Platelet Count 185 10^3/uL (150-450); Red Blood Count 4.39 10^6 /uL (4.18-5.48); Red Cell Distribution Width 14 % (10-15); White Blood Count 8.8 10^3/uL (3.5-10.8)
[2022-08-10] MEDS: Multivitamins/Minerals TAB PO SCH (08:59)
[2022-08-10] MEDS: Aspirin EC 81 mg TAB.EC (enteric coated) PO SCH (08:59)
[2022-08-10] MEDS: Polyethylene Glycol 3350 17 GM PACKET PO SCH (09:02)
[2022-08-10] MEDS: Magnesium Hydroxide LIQ 30 ML UDC PO SCH ×2 (09:02→20:33)
[2022-08-10] MEDS: Furosemide 40 mg/4 ml IV VIAL IV SLOW PU SCH (09:03)
[2022-08-10 09:19] LABS: Calcium 9.1 mg/dL (8.6-10.3); Magnesium 2.7 mg/dL (1.9-2.7); Total Bilirubin 0.6 mg/dL (0.2-1.0)
[2022-08-10 09:25] LABS: Total Protein 6.3 g/dL (6.4-8.9); eGFR CKD-EPI 71.2 (>60)
[2022-08-10 09:45] LABS: Albumin 3.9 g/dL (3.2-5.2); Albumin/Globulin Ratio 1.6 (1-3); Globulin 2.4 g/dL (2-4)
[2022-08-10] MEDS: Albuterol HFA INHALER 8 gm MDI INH SCH ×3 (11:19→18:37)
[2022-08-10] MEDS: cefTRIAXone 1 gm/50 mL D5W 1 GM/50 ML BAG IV SCH (16:57)
[2022-08-10] MEDS: Insulin GLARGINE 100 un/ml 10 ml VIAL SUBCUT SCH (20:33)
[2022-08-11] MEDS: Albuterol HFA INHALER 8 gm MDI INH SCH ×4 (00:39→11:37)
[2022-08-11 06:58] LABS: Hematocrit 45 % (42-52); Hemoglobin 15.3 g/dL (14.0-18.0); Mean Corpuscular HGB Conc 34 g/dL (31-36); Mean Corpuscular Hemoglobin 33 pg (27-31); Mean Corpuscular Volume 98 fL (80-94); Mean Platelet Volume 7.9 fL (7.4-10.4); Platelet Count 196 10^3/uL (150-450); Red Blood Count 4.62 10^6 /uL (4.18-5.48); Red Cell Distribution Width 14 % (10-15); White Blood Count 9.6 10^3/uL (3.5-10.8)
[2022-08-11] MEDS: Mometasone/Formoter 100/5 MDI INH SCH (07:15)
[2022-08-11] MEDS: SPIRIVA Respimat (tiotropium) 2.5 mcg/inh Inhaler INH SCH (07:16)
[2022-08-11 07:38] LABS: Albumin 3.9 g/dL (3.2-5.2); Albumin/Globulin Ratio 1.6 (1-3); Calcium 9.4 mg/dL (8.6-10.3); Globulin 2.5 g/dL (2-4); Magnesium 2.6 mg/dL (1.9-2.7); Potassium 4.3 mmol/L (3.5-5.0); Total Bilirubin 0.7 mg/dL (0.2-1.0); Total Protein 6.4 g/dL (6.4-8.9); eGFR CKD-EPI 65.4 (>60)
[2022-08-11] MEDS: Polyethylene Glycol 3350 17 GM PACKET PO SCH (09:13)
[2022-08-11] MEDS: Aspirin EC 81 mg TAB.EC (enteric coated) PO SCH (09:15)
[2022-08-11] MEDS: Magnesium Hydroxide LIQ 30 ML UDC PO SCH (09:16)
[2022-08-11] MEDS: Multivitamins/Minerals TAB PO SCH (09:17)
[2022-08-11 10:46] VITALS: BP 123/62
== END 2022-08-11 11:35 | disposition home or self-care (01) | DRG 193 ==
LOC: ED 08:35 → EDHOLD 08:35 → SUATTDRO 14:28 → MEDTELE 19:16 → SUATTDRO 08-06 16:56
PROVIDERS: ADMIT Internal Medicine; ATTEND Internal Medicine

== ENCOUNTER 2022-10-23 09:47 | Inpatient (IN) ==
[2022-10-23] MEDS ORDERED: Lactated Ringers SEPSIS* BAG 2,330 ML IV ONE (10:32)
[2022-10-23] MEDS ORDERED: cefTRIAXone 1 gm/50 mL D5W 1 GM/50 ML BAG IV ONE (10:44)
[2022-10-23] MEDS ORDERED: metroNIDAZOLE IV 500 MG/100ML 500 MG/100 ML BAG IVPB ONE (10:45)
[2022-10-23] MEDS ORDERED: Vancomycin 1,500 MG in NS 0.9% 250 ml 250 ML IVPB ONE (11:00)
[2022-10-23 11:18] LABS: Urine Appearance Turbid; Urine Bilirubin Negative (Negative); Urine Blood 2+ (Negative); Urine Color Yellow; Urine Glucose Negative (Negative); Urine Ketones Trace (Negative); Urine Nitrite Negative (Negative); Urine Protein 3+(>=500 mg/dL) (Negative); Urine Specific Gravity 1.013 (1.002-1.030); Urine Urobilinogen Negative (Negative)
[2022-10-23 11:21] LABS: INR 1.38 (0.88-1.18)
[2022-10-23 11:22] LABS: Activated Partial Thrombo Time 28.7 seconds (26.0-38.0)
[2022-10-23 11:29] LABS: Urine Bacteria 2+ (Absent); Urine Red Blood Cell 1+(3-5/hpf) (Absent); Urine White Blood Cell 3+(>20/hpf) (Absent)
[2022-10-23 11:47] LABS: ABS Monocytes 0.6 10^3/ul (0-0.8); ABS Neutrophils 7.3 10^3/ul (1.5-7.7); Eosinophil % 0.1 %; Hematocrit 38 % (42-52); Hemoglobin 12.5 g/dL (14.0-18.0); Lymphocyte % 11.5 %; Mean Corpuscular HGB Conc 33 g/dL (31-36); Mean Corpuscular Hemoglobin 32 pg (27-31); Mean Corpuscular Volume 95 fL (80-94); Nucleated Red Blood Cells % 0.1; Red Blood Count 3.96 10^6 /uL (4.18-5.48); Red Cell Distribution Width 15 % (10-15); White Blood Count 8.9 10^3/uL (3.5-10.8)
[2022-10-23 11:54] LABS: Albumin 2.9 g/dL (3.2-5.2); C Reactive Protein 152.68 mg/L (<8.01); Calcium 8.4 mg/dL (8.6-10.3); Creatinine, Serum 2.16 mg/dL (0.67-1.17); Globulin 2.9 g/dL (2-4); Total Bilirubin 1.1 mg/dL (0.2-1.0); Total Protein 5.8 g/dL (6.4-8.9); eGFR CKD-EPI 31.2 (>60)
[2022-10-23] MEDS ORDERED: Lactated Ringers 1000 ml BAG 1,000 ML IV ONE (12:03)
[2022-10-23] MEDS ORDERED: Iodixanol (CONTRAST) 320 MG/ML 100 ML SDV IV ONE (12:07)
[2022-10-23 12:22] LABS: Potassium 2.7 mmol/L (3.5-5.0)
[2022-10-23 12:27] LABS: High Sensitivity Troponin 1 Hr 22 pg/mL (<20)
[2022-10-23] MEDS ORDERED: Potassium Chlor 20 meq TAB.ER PO ONE (13:00)
[2022-10-23] MEDS ORDERED: Norepinephrine 16MCG/ML BAGD5W 4,000 MCG/250 ML BAG IV SCH ×2 (13:00→23:13)
[2022-10-23] MEDS ORDERED: Norepinephrine 16MCG/ML BAGD5W 4,000 MCG/250 ML BAG IV ONE (13:02)
[2022-10-23] MEDS: KCL 10 MEQ/50 ML IVPREMIX 10 MEQ/50 ML BAG IV SCH ×4 (13:36→18:09)
[2022-10-23] MEDS ORDERED: Piperacillin/Tazobac ADVAN 3.375 GM in NS 0.9% 100 ml BAG 100 ML IV ONE (14:47)
[2022-10-23] MEDS ORDERED: Enoxaparin 30 MG/0.3 ML SYR SUBCUT SCH (15:00)
[2022-10-23] MEDS ORDERED: Zosyn per Pharmacy NOTE FOLLOW UP SCH (15:00)
[2022-10-23] MEDS ORDERED: Dextrose 50% Syringe 50 ml 25 GM/50 ML SYRINGE IV PUSH PRN (16:01)
[2022-10-23 16:28] LABS: Magnesium 2.5 mg/dL (1.9-2.7)
[2022-10-23] MEDS ORDERED: Lactated Ringers 1000 ml BAG 1,000 ML IV SCH (19:00)
[2022-10-23 20:41] LABS: Calcium 7.7 mg/dL (8.6-10.3); Creatinine, Serum 1.75 mg/dL (0.67-1.17); Potassium 3.7 mmol/L (3.5-5.0); eGFR CKD-EPI 40.1 (>60)
[2022-10-23] MEDS: Insulin GLARGINE 100 un/ml 10 ml VIAL SUBCUT SCH (21:21)
[2022-10-23] MEDS: ZOSYN 3.375 GM Q8H per EXTENDED INFUSION IV SCH (21:22)
[2022-10-23] MEDS ORDERED: Vancomycin per Pharmacy 1 EA NOTE FOLLOW UP SCH (23:00)
[2022-10-24 04:07] LABS: Hematocrit 33 % (42-52); Hemoglobin 10.6 g/dL (14.0-18.0); Mean Corpuscular HGB Conc 32 g/dL (31-36); Mean Corpuscular Hemoglobin 31 pg (27-31); Mean Corpuscular Volume 96 fL (80-94); Mean Platelet Volume 8.9 fL (7.4-10.4); Red Blood Count 3.42 10^6 /uL (4.18-5.48); Red Cell Distribution Width 15 % (10-15)
[2022-10-24 04:49] LABS: Calcium 7.8 mg/dL (8.6-10.3); Creatinine, Serum 1.59 mg/dL (0.67-1.17); Potassium 2.9 mmol/L (3.5-5.0)
[2022-10-24] MEDS: ZOSYN 3.375 GM Q8H per EXTENDED INFUSION IV SCH (04:50)
[2022-10-24] MEDS ORDERED: Potassium Chlor 20 meq TAB.ER PO ONE (05:12)
[2022-10-24 05:31] LABS: Magnesium 2.3 mg/dL (1.9-2.7); Phosphorus 3.9 mg/dL (2.5-5.0)
[2022-10-24 05:33] LABS: Polychromasia 1+
[2022-10-24 05:34] LABS: RBC Morphology Normal (Normal)
[2022-10-24 05:37] LABS: ABS Monocytes 0.7 10^3/ul (0-0.8); ABS Neutrophils 5.3 10^3/ul (1.5-7.7); Eosinophil % 0.5 %; Nucleated Red Blood Cells % 0.1
[2022-10-24] MEDS ORDERED: Linezolid 600 MG IVPREMIX(*) 600 MG/300 ML BAG IVPB SCH (06:00)
[2022-10-24] MEDS: KCL 20 MEQ/100 ML IVPREMIX 20 MEQ/100 ML BAG IV SCH ×2 (08:06→11:24)
[2022-10-24] MEDS: Insulin GLARGINE 100 un/ml 10 ml VIAL SUBCUT SCH ×2 (08:06→21:19)
[2022-10-24] MEDS ORDERED: Lactated Ringers 1000 ml BAG 1,000 ML IV SCH (14:00)
[2022-10-24] MEDS: Enoxaparin 40 MG/0.4 ML SYR SUBCUT SCH (14:47)
[2022-10-24] MEDS: Lactated Ringers 1000 ml BAG 1,000 ML IV SCH (14:50)
[2022-10-24] MEDS ORDERED: Vancomycin 1,500 MG in NS 0.9% 250 ml 250 ML IVPB SCH (16:00)
[2022-10-24] MEDS: Ampicillin ADVAN 2 GM in NS 0.9% 100 ml BAG 100 ML IVPB SCH (18:28)
[2022-10-24 18:48] LABS: Calcium 8.2 mg/dL (8.6-10.3); Creatinine, Serum 1.48 mg/dL (0.67-1.17); Potassium 3.6 mmol/L (3.5-5.0)
[2022-10-24 19:53] LABS: Platelet Count, Citrated 53 10^3/ul (150-450)
[2022-10-25] MEDS: Ampicillin ADVAN 2 GM in NS 0.9% 100 ml BAG 100 ML IVPB SCH ×4 (00:01→19:23)
[2022-10-25] MEDS: Lactated Ringers 1000 ml BAG 1,000 ML IV SCH (03:21)
[2022-10-25 05:52] LABS: ABS Basophils 0.1 10^3/ul (0-0.2); ABS Eosinophils 0.1 10^3/ul (0-0.6); ABS Lymphocytes 1.3 10^3/ul (1.0-4.8); ABS Monocytes 0.6 10^3/ul (0-0.8); ABS Neutrophils 4.3 10^3/ul (1.5-7.7); Eosinophil % 1.7 %; Hematocrit 32 % (42-52); Hemoglobin 10.3 g/dL (14.0-18.0); Lymphocyte % 19.9 %; Mean Corpuscular HGB Conc 32 g/dL (31-36); Mean Corpuscular Hemoglobin 31 pg (27-31); Mean Corpuscular Volume 97 fL (80-94); Platelet Count Platelets clumped. 10^3/uL (150-450); Red Blood Count 3.26 10^6 /uL (4.18-5.48); Red Cell Distribution Width 15 % (10-15); White Blood Count 6.5 10^3/uL (3.5-10.8)
[2022-10-25 05:53] LABS: Polychromasia 1+
[2022-10-25 06:01] LABS: Blood Urea Nitrogen 39 mg/dL (6-24); CO2 Carbon Dioxide 35 mmol/L (22-32); Calcium 7.7 mg/dL (8.6-10.3); Chloride 102 mmol/L (101-111); Creatinine, Serum 1.21 mg/dL (0.67-1.17); Glucose 102 mg/dL (70-100); Magnesium 2.1 mg/dL (1.9-2.7); Sodium 141 mmol/L (135-145); eGFR CKD-EPI 62.4 (>60)
[2022-10-25 06:07] LABS: Anion Gap 4 mmol/L (2-11)
[2022-10-25 06:38] LABS: Platelet Count, Citrated 54 10^3/ul (150-450)
[2022-10-25] MEDS ORDERED: Potassium Chlor 20 meq TAB.ER PO ONE ×2 (07:58→20:01)
[2022-10-25] MEDS: Insulin GLARGINE 100 un/ml 10 ml VIAL SUBCUT SCH ×2 (08:53→20:32)
[2022-10-25] MEDS ORDERED: Lactated Ringers 1000 ml BAG 1,000 ML IV SCH (13:00)
[2022-10-25] MEDS: Enoxaparin 40 MG/0.4 ML SYR SUBCUT SCH (14:29)
[2022-10-25 22:21] LABS: Mean Platelet Volume 9.3 fL (7.4-10.4); Platelet Count 40 10^3/uL (150-450)
[2022-10-25 23:01] LABS: Calcium 8.1 mg/dL (8.6-10.3); Creatinine, Serum 1.24 mg/dL (0.67-1.17); Potassium 3.6 mmol/L (3.5-5.0); eGFR CKD-EPI 60.6 (>60)
[2022-10-25] MEDS ORDERED: GENTAMICIN 0.3% SCH (23:45)
[2022-10-25] MEDS ORDERED: OPTH SCH (23:45)
[2022-10-26] MEDS: Ampicillin ADVAN 2 GM in NS 0.9% 100 ml BAG 100 ML IVPB SCH ×5 (01:00→21:35)
[2022-10-26] MEDS: Lidocaine 5% OINT TUBE TOPICAL SCH ×3 (01:06→21:38)
[2022-10-26] MEDS: Mupirocin 2% OINT TUBE TOPICAL SCH ×3 (01:07→21:38)
[2022-10-26] MEDS: Albuterol/Ipratropium NEB.SOL (2.5/0.5 MG) 3 ML NEB.SOLN INH PRN ×2 (01:31→15:48)
[2022-10-26] MEDS: Mometasone/Formoter 100/5 MDI INH SCH ×3 (02:10→20:27)
[2022-10-26] MEDS ORDERED: Potassium Chlor 20 meq TAB.ER PO ONE ×2 (05:56→16:26)
[2022-10-26] MEDS ORDERED: NS 0.9% 1000 ml BAG 1,000 ML IV ONE (07:00)
[2022-10-26 07:36] LABS: Calcium 8.1 mg/dL (8.6-10.3); Creatinine, Serum 1.23 mg/dL (0.67-1.17); Magnesium 2.3 mg/dL (1.9-2.7); Potassium 3.5 mmol/L (3.5-5.0); eGFR CKD-EPI 61.2 (>60)
[2022-10-26] MEDS: Insulin GLARGINE 100 un/ml 10 ml VIAL SUBCUT SCH ×2 (08:40→21:22)
[2022-10-26 09:31] LABS: RBC Morphology Normal (Normal)
[2022-10-26 09:34] LABS: ABS Basophils 0.1 10^3/ul (0-0.2); ABS Eosinophils 0.1 10^3/ul (0-0.6); ABS Lymphocytes 1.3 10^3/ul (1.0-4.8); ABS Monocytes 0.6 10^3/ul (0-0.8); ABS Neutrophils 3.6 10^3/ul (1.5-7.7); Hematocrit 32 % (42-52); Hemoglobin 10.6 g/dL (14.0-18.0); Lymphocyte % 23.6 %; Mean Corpuscular HGB Conc 33 g/dL (31-36); Mean Corpuscular Hemoglobin 32 pg (27-31); Mean Corpuscular Volume 97 fL (80-94); Nucleated Red Blood Cells % 0.1; Platelet Count Platelets clumped. 10^3/uL (150-450); Red Blood Count 3.33 10^6 /uL (4.18-5.48); Red Cell Distribution Width 15 % (10-15); White Blood Count 5.6 10^3/uL (3.5-10.8)
[2022-10-26 09:37] LABS: Mean Platelet Volume 8.4 fL (7.4-10.4)
[2022-10-26] MEDS ORDERED: Lactated Ringers 1000 ml BAG 1,000 ML IV ONE (09:45)
[2022-10-26] MEDS ORDERED: Midazolam 5 mg/5 ml VIAL 1 mg/ml 5 ml VIAL (5 mg) ONE (12:50)
[2022-10-26] MEDS ORDERED: Flumazenil 0.5 mg/5 ml 0.1 MG/ML 5 ml VIAL ONE (12:50)
[2022-10-26] MEDS ORDERED: fentaNYL 100 mcg/2 ml 50 MCG/ML VIAL ONE (12:50)
[2022-10-26] MEDS ORDERED: Naloxone 0.4 mg VIAL 0.4 mg/ml 1 ml VIAL ONE (12:50)
[2022-10-26] MEDS ORDERED: fentaNYL 100 mcg/2 ml 50 MCG/ML VIAL IV SLOW PU ONE (13:06)
[2022-10-26] MEDS ORDERED: Midazolam 10 mg/10 ml VIAL 1 mg/ml 10 ml VIAL (10 mg) IV SLOW PU ONE (13:06)
[2022-10-26] MEDS ORDERED: Phenylephrine 40 mcg/mL 10mL (400mcg) SYRINGE ONE (13:25)
[2022-10-26] MEDS ORDERED: Vancomycin Trough Check NOTE FOLLOW UP ONE (15:30)
[2022-10-26] MEDS: cefTRIAXone 2 gm/50 mL D5W 2 GM/50 ML BAG IV SCH (15:50)
[2022-10-26] MEDS: Enoxaparin 40 MG/0.4 ML SYR SUBCUT SCH (15:54)
[2022-10-26 18:42] LABS: Platelet Count, Citrated 58 10^3/ul (150-450)
[2022-10-26 18:43] LABS: INR 1.41 (0.88-1.18)
[2022-10-27] MEDS: Ampicillin ADVAN 2 GM in NS 0.9% 100 ml BAG 100 ML IVPB SCH ×6 (01:40→21:55)
[2022-10-27] MEDS: cefTRIAXone 2 gm/50 mL D5W 2 GM/50 ML BAG IV SCH ×2 (02:55→16:28)
[2022-10-27 06:23] LABS: Hematocrit 33 % (42-52); Hemoglobin 10.9 g/dL (14.0-18.0); Mean Corpuscular HGB Conc 33 g/dL (31-36); Mean Corpuscular Hemoglobin 32 pg (27-31); Mean Corpuscular Volume 97 fL (80-94); Platelet Count Platelets clumped. 10^3/uL (150-450); Red Blood Count 3.44 10^6 /uL (4.18-5.48); Red Cell Distribution Width 15 % (10-15); White Blood Count 5.3 10^3/uL (3.5-10.8)
[2022-10-27 06:25] LABS: Platelet Count, Citrated 46 10^3/ul (150-450)
[2022-10-27 06:37] LABS: Calcium 8.1 mg/dL (8.6-10.3); Potassium 4.1 mmol/L (3.5-5.0)
[2022-10-27 06:43] LABS: Creatinine, Serum 1.1 mg/dL (0.67-1.17)
[2022-10-27] MEDS: Mometasone/Formoter 100/5 MDI INH SCH ×2 (07:13→19:11)
[2022-10-27] MEDS ORDERED: Lactated Ringers 1000 ml BAG 1,000 ML IV ONE (08:03)
[2022-10-27] MEDS: Albuterol/Ipratropium NEB.SOL (2.5/0.5 MG) 3 ML NEB.SOLN INH PRN (08:26)
[2022-10-27] MEDS: Lidocaine 5% OINT TUBE TOPICAL SCH ×2 (08:36→21:59)
[2022-10-27] MEDS: Mupirocin 2% OINT TUBE TOPICAL SCH ×2 (08:36→21:59)
[2022-10-27] MEDS: Insulin GLARGINE 100 un/ml 10 ml VIAL SUBCUT SCH (09:17)
[2022-10-27] MEDS: Enoxaparin 40 MG/0.4 ML SYR SUBCUT SCH (14:27)
[2022-10-27 14:45] LABS: Calcium 8.1 mg/dL (8.6-10.3); Creatinine, Serum 1.16 mg/dL (0.67-1.17); Potassium 4.2 mmol/L (3.5-5.0); eGFR CKD-EPI 65.7 (>60)
[2022-10-27 14:53] LABS: Magnesium 2.1 mg/dL (1.9-2.7)
[2022-10-28] MEDS: Ampicillin ADVAN 2 GM in NS 0.9% 100 ml BAG 100 ML IVPB SCH ×6 (01:10→20:59)
[2022-10-28] MEDS: cefTRIAXone 2 gm/50 mL D5W 2 GM/50 ML BAG IV SCH ×2 (03:35→15:17)
[2022-10-28 06:21] LABS: ABS Basophils 0.1 10^3/ul (0-0.2); ABS Eosinophils 0.1 10^3/ul (0-0.6); ABS Lymphocytes 1.4 10^3/ul (1.0-4.8); ABS Monocytes 0.5 10^3/ul (0-0.8); ABS Neutrophils 3.6 10^3/ul (1.5-7.7); Hematocrit 33 % (42-52); Hemoglobin 10.4 g/dL (14.0-18.0); Lymphocyte % 23.9 %; Mean Corpuscular HGB Conc 31 g/dL (31-36); Mean Corpuscular Hemoglobin 31 pg (27-31); Mean Corpuscular Volume 98 fL (80-94); Nucleated Red Blood Cells % 0.1; Platelet Count Platelets clumped. 10^3/uL (150-450); Red Blood Count 3.38 10^6 /uL (4.18-5.48); Red Cell Distribution Width 16 % (10-15); White Blood Count 5.7 10^3/uL (3.5-10.8)
[2022-10-28 06:36] LABS: Creatinine, Serum 1.15 mg/dL (0.67-1.17); Potassium 3.8 mmol/L (3.5-5.0); eGFR CKD-EPI 66.4 (>60)
[2022-10-28] MEDS: Mometasone/Formoter 100/5 MDI INH SCH ×2 (07:18→19:20)
[2022-10-28] MEDS ORDERED: Potassium Chlor 20 meq TAB.ER PO ONE (08:10)
[2022-10-28] MEDS: Lidocaine 5% OINT TUBE TOPICAL SCH ×3 (09:39→21:31)
[2022-10-28] MEDS: Mupirocin 2% OINT TUBE TOPICAL SCH ×3 (09:39→21:31)
[2022-10-28 16:27] LABS: Urine Appearance Turbid; Urine Bilirubin Negative (Negative); Urine Blood 2+ (Negative); Urine Color Amber; Urine Glucose Negative (Negative); Urine Ketones Negative (Negative); Urine Nitrite Negative (Negative); Urine Protein 2+(100 mg/dL) (Negative); Urine Specific Gravity 1.024 (1.002-1.030); Urine Urobilinogen Negative (Negative)
[2022-10-28 16:33] LABS: Urine Bacteria Absent (Absent); Urine Red Blood Cell 2+(6-10/hpf) (Absent); Urine Squamous Epithelial Cell Present (Absent); Urine White Blood Cell 3+(>20/hpf) (Absent)
[2022-10-28] MEDS ORDERED: Lactated Ringers 1000 ml BAG 1,000 ML IV ONE (20:57)
[2022-10-29] MEDS: Ampicillin ADVAN 2 GM in NS 0.9% 100 ml BAG 100 ML IVPB SCH ×6 (00:26→22:02)
[2022-10-29] MEDS: cefTRIAXone 2 gm/50 mL D5W 2 GM/50 ML BAG IV SCH ×2 (04:09→16:19)
[2022-10-29 06:42] LABS: Calcium 8.1 mg/dL (8.6-10.3); Creatinine, Serum 1.04 mg/dL (0.67-1.17); Magnesium 1.9 mg/dL (1.9-2.7); Potassium 4.3 mmol/L (3.5-5.0); eGFR CKD-EPI 74.9 (>60)
[2022-10-29 06:45] LABS: Platelet Count Platelets clumped. 10^3/uL (150-450)
[2022-10-29 06:46] LABS: ABS Basophils 0.1 10^3/ul (0-0.2); ABS Eosinophils 0.1 10^3/ul (0-0.6); ABS Lymphocytes 1.2 10^3/ul (1.0-4.8); ABS Monocytes 0.5 10^3/ul (0-0.8); ABS Neutrophils 3.4 10^3/ul (1.5-7.7); Eosinophil % 1.4 %; Hematocrit 32 % (42-52); Hemoglobin 10.1 g/dL (14.0-18.0); Lymphocyte % 23.7 %; Mean Corpuscular HGB Conc 32 g/dL (31-36); Mean Corpuscular Hemoglobin 32 pg (27-31); Mean Corpuscular Volume 99 fL (80-94); Mean Platelet Volume 9.5 fL (7.4-10.4); Red Blood Count 3.19 10^6 /uL (4.18-5.48); Red Cell Distribution Width 16 % (10-15); White Blood Count 5.3 10^3/uL (3.5-10.8)
[2022-10-29] MEDS: Mometasone/Formoter 100/5 MDI INH SCH ×2 (07:12→19:11)
[2022-10-29] MEDS ORDERED: D5W 500 ml BAG 500 ML IV ONE ×2 (08:46→12:50)
[2022-10-29] MEDS: Mupirocin 2% OINT TUBE TOPICAL SCH ×2 (10:24→22:03)
[2022-10-29] MEDS: Lidocaine 5% OINT TUBE TOPICAL SCH ×2 (10:25→22:03)
[2022-10-29] MEDS ORDERED: Albumin Human 5% 12.5 GM/250 ML BTL IV ONE (16:00)
[2022-10-29 17:22] LABS: Potassium 3.8 mmol/L (3.5-5.0); eGFR CKD-EPI 78.5 (>60)
[2022-10-29] MEDS: SPIRIVA Respimat (tiotropium) 2.5 mcg/inh Inhaler INH SCH (19:11)
[2022-10-30] MEDS: Ampicillin ADVAN 2 GM in NS 0.9% 100 ml BAG 100 ML IVPB SCH ×6 (02:49→22:15)
[2022-10-30] MEDS: cefTRIAXone 2 gm/50 mL D5W 2 GM/50 ML BAG IV SCH ×2 (03:23→17:24)
[2022-10-30 06:39] LABS: Hematocrit 28 % (42-52); Hemoglobin 9.1 g/dL (14.0-18.0); Mean Corpuscular HGB Conc 32 g/dL (31-36); Mean Corpuscular Hemoglobin 32 pg (27-31); Mean Corpuscular Volume 99 fL (80-94); Mean Platelet Volume 8.3 fL (7.4-10.4); Platelet Count 19 10^3/uL (150-450); Red Blood Count 2.86 10^6 /uL (4.18-5.48); Red Cell Distribution Width 16 % (10-15); White Blood Count 3.9 10^3/uL (3.5-10.8)
[2022-10-30 07:03] LABS: Calcium 7.9 mg/dL (8.6-10.3); Creatinine, Serum 0.99 mg/dL (0.67-1.17); Magnesium 1.7 mg/dL (1.9-2.7); Potassium 3.8 mmol/L (3.5-5.0); eGFR CKD-EPI 79.4 (>60)
[2022-10-30] MEDS ORDERED: Magnesium Sulfate 2 gm BAG 2 GM/50 ML BAG IVPB ONE (07:22)
[2022-10-30] MEDS: Mometasone/Formoter 100/5 MDI INH SCH ×2 (07:40→19:57)
[2022-10-30] MEDS ORDERED: fentaNYL 100 mcg/2 ml 50 MCG/ML VIAL ONE (07:42)
[2022-10-30] MEDS ORDERED: Dextrose 50% Syringe 50 ml 25 GM/50 ML SYRINGE IV PUSH PRN (08:29)
[2022-10-30 09:50] LABS: Hematocrit 30 % (42-52); Hemoglobin 9.5 g/dL (14.0-18.0); Mean Corpuscular HGB Conc 31 g/dL (31-36); Mean Corpuscular Hemoglobin 31 pg (27-31); Mean Corpuscular Volume 98 fL (80-94); Mean Platelet Volume 8.1 fL (7.4-10.4); Platelet Count 53 10^3/uL (150-450); Red Cell Distribution Width 16 % (10-15); White Blood Count 4.3 10^3/uL (3.5-10.8)
[2022-10-30 10:14] LABS: ABS Basophils 0.1 10^3/ul (0-0.2); ABS Eosinophils 0.1 10^3/ul (0-0.6); ABS Lymphocytes 1.1 10^3/ul (1.0-4.8); ABS Monocytes 0.4 10^3/ul (0-0.8); ABS Neutrophils 2.7 10^3/ul (1.5-7.7); Lymphocyte % 25.7 %; Nucleated Red Blood Cells % 0.1
[2022-10-30 11:48] LABS: Albumin 2.5 g/dL (3.2-5.2); C Reactive Protein 28.25 mg/L (<8.01); Direct Bilirubin 0.1 mg/dL (0.03-0.18); Globulin 2.5 g/dL (2-4); Indirect Bilirubin 0.4 mg/dL (0.3-1.0); Total Bilirubin 0.5 mg/dL (0.2-1.0)
[2022-10-30] MEDS: Lidocaine 5% OINT TUBE TOPICAL SCH ×2 (12:00→22:16)
[2022-10-30] MEDS: Mupirocin 2% OINT TUBE TOPICAL SCH ×2 (14:47→22:16)
[2022-10-30 15:52] LABS: Urine Osmo 412 mOsm/kg (150-1150)
[2022-10-30] MEDS: SPIRIVA Respimat (tiotropium) 2.5 mcg/inh Inhaler INH SCH (19:57)
[2022-10-31] MEDS: Ampicillin ADVAN 2 GM in NS 0.9% 100 ml BAG 100 ML IVPB SCH ×6 (02:36→22:25)
[2022-10-31] MEDS: cefTRIAXone 2 gm/50 mL D5W 2 GM/50 ML BAG IV SCH ×2 (03:27→15:13)
[2022-10-31 06:33] LABS: ABS Eosinophils 0.1 10^3/ul (0-0.6); ABS Lymphocytes 1.1 10^3/ul (1.0-4.8); ABS Monocytes 0.4 10^3/ul (0-0.8); Hematocrit 28 % (42-52); Hemoglobin 9.2 g/dL (14.0-18.0); Mean Corpuscular HGB Conc 32 g/dL (31-36); Mean Corpuscular Hemoglobin 32 pg (27-31); Mean Corpuscular Volume 98 fL (80-94); Mean Platelet Volume 8.3 fL (7.4-10.4); Red Cell Distribution Width 16 % (10-15); White Blood Count 3.5 10^3/uL (3.5-10.8)
[2022-10-31 07:14] LABS: Blood Urea Nitrogen 9 mg/dL (6-24); CO2 Carbon Dioxide 35 mmol/L (22-32); Calcium 7.9 mg/dL (8.6-10.3); Chloride 111 mmol/L (101-111); Creatinine, Serum 0.93 mg/dL (0.67-1.17); Glucose 124 mg/dL (70-100); Potassium 3.5 mmol/L (3.5-5.0); eGFR CKD-EPI 85.6 (>60)
[2022-10-31 07:23] LABS: Sodium 146 mmol/L (135-145)
[2022-10-31] MEDS: Mometasone/Formoter 100/5 MDI INH SCH ×2 (08:29→19:40)
[2022-10-31] MEDS: Lidocaine 5% OINT TUBE TOPICAL SCH ×2 (09:01→20:43)
[2022-10-31] MEDS: Mupirocin 2% OINT TUBE TOPICAL SCH ×2 (09:01→20:44)
[2022-10-31 12:45] LABS: Vitamin B12 319 pg/mL (180-914)
[2022-10-31 15:11] LABS: Platelet Count, Citrated 52 10^3/ul (150-450)
[2022-10-31 16:36] LABS: Macrocytosis 1+; Microcytosis 1+; Polychromasia 1+
[2022-10-31 16:38] LABS: Platelet Count 28 10^3/uL (150-450)
[2022-10-31 19:03] LABS: TSH Ultra Thyroid Stim Horm 4.26 mcIU/mL (0.34-5.60)
[2022-10-31 19:09] LABS: Ferritin 234.9 ng/mL (24-336)
[2022-10-31 19:14] LABS: Folate 16.74 ng/mL (5.90-24.80)
[2022-10-31] MEDS: SPIRIVA Respimat (tiotropium) 2.5 mcg/inh Inhaler INH SCH (19:40)
[2022-11-01] MEDS: Ampicillin ADVAN 2 GM in NS 0.9% 100 ml BAG 100 ML IVPB SCH ×4 (02:42→14:49)
[2022-11-01] MEDS: cefTRIAXone 2 gm/50 mL D5W 2 GM/50 ML BAG IV SCH ×2 (03:59→15:40)
[2022-11-01 06:56] LABS: ABS Eosinophils 0.1 10^3/ul (0-0.6); ABS Monocytes 0.4 10^3/ul (0-0.8); Eosinophil % 2.5 %; Hematocrit 27 % (42-52); Hemoglobin 8.8 g/dL (14.0-18.0); Lymphocyte % 29.5 %; Mean Corpuscular HGB Conc 32 g/dL (31-36); Mean Corpuscular Hemoglobin 32 pg (27-31); Mean Corpuscular Volume 99 fL (80-94); Mean Platelet Volume 8.4 fL (7.4-10.4); Nucleated Red Blood Cells % 0.1; Platelet Count 25 10^3/uL (150-450); Red Blood Count 2.77 10^6 /uL (4.18-5.48); Red Cell Distribution Width 16 % (10-15); White Blood Count 3.5 10^3/uL (3.5-10.8)
[2022-11-01 07:08] LABS: Calcium 7.7 mg/dL (8.6-10.3); Creatinine, Serum 0.97 mg/dL (0.67-1.17); Magnesium 1.9 mg/dL (1.9-2.7); Potassium 3.3 mmol/L (3.5-5.0); eGFR CKD-EPI 81.4 (>60)
[2022-11-01] MEDS ORDERED: Potassium EFFERVES 25 meq TAB PO ONE (07:17)
[2022-11-01] MEDS: Mometasone/Formoter 100/5 MDI INH SCH ×2 (07:26→20:05)
[2022-11-01] MEDS: Mupirocin 2% OINT TUBE TOPICAL SCH ×2 (09:10→19:58)
[2022-11-01] MEDS: Lidocaine 5% OINT TUBE TOPICAL SCH ×2 (09:10→19:58)
[2022-11-01] MEDS ORDERED: Potassium Chlor 10 meq TAB PO ONE (12:00)
[2022-11-01 13:44] LABS: Platelet Count, Citrated 55 10^3/ul (150-450)
[2022-11-01] MEDS: D5W IVPB SCH ×2 (19:37→23:06)
[2022-11-01] MEDS: AMPICILLIN ADVAN IVPB SCH ×2 (19:37→23:06)
[2022-11-01] MEDS: SPIRIVA Respimat (tiotropium) 2.5 mcg/inh Inhaler INH SCH (20:05)
[2022-11-01 20:39] LABS: HIT ELISA < 0.050 OD (<0.400); Heparin PF4 Antibody Interp Negative (Negative)
[2022-11-02] MEDS: D5W IVPB SCH ×6 (02:46→23:39)
[2022-11-02] MEDS: AMPICILLIN ADVAN IVPB SCH ×6 (02:46→23:39)
[2022-11-02] MEDS: cefTRIAXone 2 gm/50 mL D5W 2 GM/50 ML BAG IV SCH ×2 (03:29→15:26)
[2022-11-02 07:07] LABS: Blood Urea Nitrogen 7 mg/dL (6-24); CO2 Carbon Dioxide 39 mmol/L (22-32); Calcium 7.9 mg/dL (8.6-10.3); Chloride 109 mmol/L (101-111); Creatinine, Serum 0.92 mg/dL (0.67-1.17); Glucose 118 mg/dL (70-100); Potassium 3.9 mmol/L (3.5-5.0); eGFR CKD-EPI 86.7 (>60)
[2022-11-02 07:09] LABS: Sodium 146 mmol/L (135-145)
[2022-11-02 07:15] LABS: Hematocrit 27 % (42-52); Hemoglobin 8.6 g/dL (14.0-18.0); Mean Corpuscular HGB Conc 32 g/dL (31-36); Mean Corpuscular Hemoglobin 31 pg (27-31); Mean Corpuscular Volume 98 fL (80-94); Red Blood Count 2.75 10^6 /uL (4.18-5.48); Red Cell Distribution Width 16 % (10-15); White Blood Count 4.2 10^3/uL (3.5-10.8)
[2022-11-02] MEDS: Mometasone/Formoter 100/5 MDI INH SCH ×2 (07:15→19:34)
[2022-11-02 08:32] LABS: Platelet Count Platelets clumped. 10^3/uL (150-450)
[2022-11-02] MEDS: Lidocaine 5% OINT TUBE TOPICAL SCH ×2 (09:02→21:56)
[2022-11-02] MEDS: Mupirocin 2% OINT TUBE TOPICAL SCH ×2 (09:02→21:56)
[2022-11-02 09:07] LABS: Platelet Count, Citrated 69 10^3/ul (150-450)
[2022-11-02] MEDS ORDERED: Pantoprazole VIAL 40 MG VIAL IV ONE (11:04)
[2022-11-02 14:40] LABS: Hematocrit 29 % (42-52); Hemoglobin 9.3 g/dL (14.0-18.0)
[2022-11-02] MEDS: SPIRIVA Respimat (tiotropium) 2.5 mcg/inh Inhaler INH SCH (19:40)
[2022-11-02] MEDS: Pantoprazole VIAL 40 MG VIAL IV SCH (21:44)
[2022-11-03] MEDS: D5W IVPB SCH ×6 (03:13→23:15)
[2022-11-03] MEDS: AMPICILLIN ADVAN IVPB SCH ×6 (03:13→23:15)
[2022-11-03] MEDS: cefTRIAXone 2 gm/50 mL D5W 2 GM/50 ML BAG IV SCH ×2 (04:00→15:59)
[2022-11-03 06:27] LABS: ABS Basophils 0.1 10^3/ul (0-0.2); ABS Eosinophils 0.1 10^3/ul (0-0.6); ABS Lymphocytes 1.1 10^3/ul (1.0-4.8); ABS Monocytes 0.4 10^3/ul (0-0.8); ABS Neutrophils 2.5 10^3/ul (1.5-7.7); Eosinophil % 1.6 %; Hematocrit 26 % (42-52); Hemoglobin 8.4 g/dL (14.0-18.0); Lymphocyte % 26.8 %; Mean Corpuscular HGB Conc 33 g/dL (31-36); Mean Corpuscular Hemoglobin 31 pg (27-31); Mean Corpuscular Volume 97 fL (80-94); Nucleated Red Blood Cells % 0.1; Red Blood Count 2.68 10^6 /uL (4.18-5.48); Red Cell Distribution Width 16 % (10-15); White Blood Count 4.1 10^3/uL (3.5-10.8)
[2022-11-03 06:45] LABS: Albumin 2.2 g/dL (3.2-5.2); Albumin/Globulin Ratio 0.8 (1-3); Calcium 7.7 mg/dL (8.6-10.3); Creatinine, Serum 0.78 mg/dL (0.67-1.17); Globulin 2.6 g/dL (2-4); Magnesium 1.7 mg/dL (1.9-2.7); Potassium 3.6 mmol/L (3.5-5.0); Total Bilirubin 0.5 mg/dL (0.2-1.0); Total Protein 4.8 g/dL (6.4-8.9)
[2022-11-03] MEDS ORDERED: Magnesium Sulfate 2 gm BAG 2 GM/50 ML BAG IVPB ONE (07:47)
[2022-11-03] MEDS: Mometasone/Formoter 100/5 MDI INH SCH ×2 (07:59→20:11)
[2022-11-03] MEDS: Pantoprazole VIAL 40 MG VIAL IV SCH ×2 (07:59→23:06)
[2022-11-03] MEDS: Mupirocin 2% OINT TUBE TOPICAL SCH ×2 (08:11→23:07)
[2022-11-03] MEDS: Lidocaine 5% OINT TUBE TOPICAL SCH ×2 (08:12→23:07)
[2022-11-03] MEDS: Albuterol/Ipratropium NEB.SOL (2.5/0.5 MG) 3 ML NEB.SOLN INH PRN (08:51)
[2022-11-03] MEDS ORDERED: D5W 500 ml BAG 500 ML IV SCH (11:00)
[2022-11-03] MEDS: SPIRIVA Respimat (tiotropium) 2.5 mcg/inh Inhaler INH SCH (20:11)
[2022-11-04] MEDS: AMPICILLIN ADVAN IVPB SCH ×6 (02:11→23:00)
[2022-11-04] MEDS: D5W IVPB SCH ×6 (02:11→23:00)
[2022-11-04] MEDS: cefTRIAXone 2 gm/50 mL D5W 2 GM/50 ML BAG IV SCH ×2 (03:09→16:24)
[2022-11-04] MEDS: Mometasone/Formoter 100/5 MDI INH SCH ×2 (07:44→19:34)
[2022-11-04] MEDS: Pantoprazole VIAL 40 MG VIAL IV SCH (07:54)
[2022-11-04] MEDS: Lidocaine 5% OINT TUBE TOPICAL SCH ×2 (10:03→20:02)
[2022-11-04] MEDS: Mupirocin 2% OINT TUBE TOPICAL SCH ×2 (10:04→20:03)
[2022-11-04] MEDS: SPIRIVA Respimat (tiotropium) 2.5 mcg/inh Inhaler INH SCH (19:34)
[2022-11-05] MEDS: Ampicillin ADVAN 2 GM in NS 0.9% 100 ML 100 ML IVPB SCH ×6 (01:59→22:45)
[2022-11-05] MEDS: cefTRIAXone 2 gm/50 mL D5W 2 GM/50 ML BAG IV SCH ×2 (03:40→18:32)
[2022-11-05 07:11] LABS: Hematocrit 25 % (42-52); Hemoglobin 8.6 g/dL (14.0-18.0); Mean Corpuscular HGB Conc 35 g/dL (31-36); Mean Corpuscular Hemoglobin 33 pg (27-31); Mean Corpuscular Volume 97 fL (80-94); Red Blood Count 2.57 10^6 /uL (4.18-5.48); Red Cell Distribution Width 16 % (10-15); White Blood Count 3.8 10^3/uL (3.5-10.8)
[2022-11-05] MEDS: Mometasone/Formoter 100/5 MDI INH SCH ×2 (07:18→19:24)
[2022-11-05 07:29] LABS: Blood Urea Nitrogen 8 mg/dL (6-24); CO2 Carbon Dioxide 38 mmol/L (22-32); Calcium 7.6 mg/dL (8.6-10.3); Chloride 103 mmol/L (101-111); Creatinine, Serum 0.71 mg/dL (0.67-1.17); Glucose 116 mg/dL (70-100); Magnesium 1.7 mg/dL (1.9-2.7); Phosphorus 3.1 mg/dL (2.5-5.0); Potassium 3.6 mmol/L (3.5-5.0); Sodium 140 mmol/L (135-145); eGFR CKD-EPI 95.7 (>60)
[2022-11-05 07:57] LABS: ABS Monocytes 0.4 10^3/ul (0-0.8); ABS Neutrophils 2.3 10^3/ul (1.5-7.7); Eosinophil % 1.2 %; Nucleated Red Blood Cells % 0.2
[2022-11-05] MEDS: Magnesium Sulfate 2 gm BAG 2 GM/50 ML BAG IVPB ONE ×2 (08:08→09:06)
[2022-11-05] MEDS: Lidocaine 5% OINT TUBE TOPICAL SCH ×2 (08:31→21:23)
[2022-11-05] MEDS: Mupirocin 2% OINT TUBE TOPICAL SCH ×2 (08:31→21:20)
[2022-11-05 09:20] LABS: Platelet Count, Citrated 72 10^3/ul (150-450)
[2022-11-05 09:42] LABS: Platelet Count Platelets clumped. 10^3/uL (150-450)
[2022-11-05] MEDS ORDERED: Potassium Chlor 20 meq TAB.ER PO ONE (09:47)
[2022-11-05] MEDS: SPIRIVA Respimat (tiotropium) 2.5 mcg/inh Inhaler INH SCH (19:24)
[2022-11-06] MEDS: Ampicillin ADVAN 2 GM in NS 0.9% 100 ML 100 ML IVPB SCH ×2 (02:45→06:20)
[2022-11-06] MEDS: cefTRIAXone 2 gm/50 mL D5W 2 GM/50 ML BAG IV SCH ×2 (03:23→17:52)
[2022-11-06 05:43] LABS: Hematocrit 26 % (42-52); Hemoglobin 8.7 g/dL (14.0-18.0); Mean Corpuscular HGB Conc 34 g/dL (31-36); Mean Corpuscular Hemoglobin 34 pg (27-31); Mean Corpuscular Volume 98 fL (80-94); Red Blood Count 2.59 10^6 /uL (4.18-5.48); Red Cell Distribution Width 16 % (10-15); White Blood Count 3.9 10^3/uL (3.5-10.8)
[2022-11-06 06:13] LABS: Calcium 7.8 mg/dL (8.6-10.3); Creatinine, Serum 0.65 mg/dL (0.67-1.17); Magnesium 1.7 mg/dL (1.9-2.7); Potassium 3.8 mmol/L (3.5-5.0); eGFR CKD-EPI 98.3 (>60)
[2022-11-06 06:47] LABS: Platelet Count Platelets clumped. 10^3/uL (150-450)
[2022-11-06 07:11] LABS: Platelet Count, Citrated 61 10^3/ul (150-450)
[2022-11-06] MEDS ORDERED: Magnesium Sulfate 2 gm BAG 2 GM/50 ML BAG IVPB ONE (07:42)
[2022-11-06] MEDS: Mometasone/Formoter 100/5 MDI INH SCH ×2 (08:02→19:19)
[2022-11-06] MEDS: Lidocaine 5% OINT TUBE TOPICAL SCH ×2 (09:22→22:19)
[2022-11-06] MEDS: Mupirocin 2% OINT TUBE TOPICAL SCH ×2 (10:32→22:19)
[2022-11-06] MEDS: Ampicillin IV 2 GM in NS 0.9% 100 ml BAG 100 ML IVPB SCH ×4 (10:33→22:46)
[2022-11-06] MEDS: SPIRIVA Respimat (tiotropium) 2.5 mcg/inh Inhaler INH SCH (19:19)
[2022-11-07] MEDS: Ampicillin IV 2 GM in NS 0.9% 100 ml BAG 100 ML IVPB SCH ×6 (02:37→22:27)
[2022-11-07] MEDS: cefTRIAXone 2 gm/50 mL D5W 2 GM/50 ML BAG IV SCH ×2 (03:59→15:49)
[2022-11-07 06:47] LABS: Hematocrit 26 % (42-52); Hemoglobin 8.5 g/dL (14.0-18.0); Mean Corpuscular HGB Conc 33 g/dL (31-36); Mean Corpuscular Hemoglobin 33 pg (27-31); Mean Corpuscular Volume 99 fL (80-94); Red Blood Count 2.61 10^6 /uL (4.18-5.48); Red Cell Distribution Width 17 % (10-15); White Blood Count 3.5 10^3/uL (3.5-10.8)
[2022-11-07] MEDS: Mometasone/Formoter 100/5 MDI INH SCH ×2 (07:19→19:41)
[2022-11-07 07:21] LABS: C Reactive Protein 46.87 mg/L (<8.01); Potassium 3.8 mmol/L (3.5-5.0)
[2022-11-07 07:22] LABS: Calcium 7.7 mg/dL (8.6-10.3); Creatinine, Serum 0.68 mg/dL (0.67-1.17); Magnesium 1.8 mg/dL (1.9-2.7); eGFR CKD-EPI 96.9 (>60)
[2022-11-07] MEDS ORDERED: Magnesium Sulfate 2 gm BAG 2 GM/50 ML BAG IVPB ONE (07:25)
[2022-11-07 07:40] LABS: Platelet Count Platelets clumped. 10^3/uL (150-450)
[2022-11-07 08:53] LABS: Platelet Count, Citrated 77 10^3/ul (150-450)
[2022-11-07] MEDS: Mupirocin 2% OINT TUBE TOPICAL SCH ×2 (08:57→22:28)
[2022-11-07] MEDS: Lidocaine 5% OINT TUBE TOPICAL SCH ×2 (08:57→22:27)
[2022-11-07] MEDS ORDERED: Ondansetron 4 mg VIAL 2 MG/ML 2 ml VIAL IV PRN (11:49)
[2022-11-07] MEDS: SPIRIVA Respimat (tiotropium) 2.5 mcg/inh Inhaler INH SCH (19:41)
[2022-11-08] MEDS: Ampicillin IV 2 GM in NS 0.9% 100 ml BAG 100 ML IVPB SCH ×2 (02:05→06:30)
[2022-11-08] MEDS: cefTRIAXone 2 gm/50 mL D5W 2 GM/50 ML BAG IV SCH (03:59)
[2022-11-08 05:21] LABS: Hematocrit 26 % (42-52); Hemoglobin 8.5 g/dL (14.0-18.0); Mean Corpuscular HGB Conc 33 g/dL (31-36); Mean Corpuscular Hemoglobin 32 pg (27-31); Mean Corpuscular Volume 97 fL (80-94); Red Blood Count 2.66 10^6 /uL (4.18-5.48); Red Cell Distribution Width 16 % (10-15); White Blood Count 3.5 10^3/uL (3.5-10.8)
[2022-11-08 05:30] LABS: Potassium 3.8 mmol/L (3.5-5.0)
[2022-11-08 05:35] LABS: Creatinine, Serum 0.68 mg/dL (0.67-1.17); eGFR CKD-EPI 96.9 (>60)
[2022-11-08 06:14] LABS: Platelet Count Platelets clumped. 10^3/uL (150-450)
[2022-11-08 06:41] LABS: Platelet Count, Citrated 76 10^3/ul (150-450)
[2022-11-08] MEDS: Mometasone/Formoter 100/5 MDI INH SCH (07:16)
[2022-11-08] MEDS: Lidocaine 5% OINT TUBE TOPICAL SCH (09:03)
[2022-11-08] MEDS: Mupirocin 2% OINT TUBE TOPICAL SCH (09:03)
[2022-11-08] MEDS ORDERED: Ampicillin IV 2 GM in NS 0.9% 100 ml BAG 100 ML IVPB SCH ×2 (10:00→12:00)
[2022-11-08 10:31] VITALS: BP 96/60
== END 2022-11-08 15:30 | disposition swing bed (61) | DRG 871 ==
LOC: ED 09:47 → SUATTDRO 14:32 → EDHOLD 14:32 → ICU 15:39 → MEDTELE 10-25 21:59
PROVIDERS: ADMIT Internal Medicine Critical Care Medicine; ATTEND Internal Medicine Hematology & Oncology